=== PATIENT | female | born 1970 | race Caucasian/White ===

== ENCOUNTER → 2017-06-17 | Outpatient (REF) | payer BC | LOC: M LAB REF 11:56 | DX: S91.109A Unspecified open wound of unspecified toe(s) without damage to nail, initial encounter (principal); W18.30XA Fall on same level, unspecified, initial encounter; Y92.009 Unspecified place in unspecified non-institutional (private) residence as the place of occurrence of the external cause | CPT/HCPCS: 87077 ==

== ENCOUNTER 2017-06-26 14:37 | Emergency (ER) | payer BC ==
[2017-06-26] MEDS: IPRATROPIUM 0.5MG/ALBUTEROL 2.5MG INH SOL UD 3ML (DUONEB)(J7620) NEB (15:56)
[2017-06-26 16:16] LABS: HEMATOCRIT 46.3 % (36.0-47.0); HEMOGLOBIN 15.3 g/dl (12.0-15.5); MEAN CORPUSCULAR HEMOGLOBIN 32.3 pg (27.0-33.0); MEAN CORPUSCULAR VOLUME 97.7 fl (80.0-96.0); PLATELET COUNT, AUTOMATED 216 10^3/uL (150-450); RED BLOOD COUNT 4.74 10^6/uL (4.00-5.40); RED CELL DISTRIBUTION WIDTH 14.4 % (11.5-14.5); WHITE BLOOD COUNT 5.1 10^3/uL (4.0-10.0)
[2017-06-26 16:40] LABS: ESTIMATED AVERAGE GLUCOSE 105 MG/DL (60-110); HEMOGLOBIN A1c 5.3 %
[2017-06-26 16:54] LABS: ALBUMIN 3.7 GM/DL (3.2-5.2); ALBUMIN/GLOBULIN RATIO 0.86 (1.00-1.93); ALKALINE PHOSPHATASE 59 U/L (45-117); ALT/SGPT 18 U/L (12-78); ANION GAP 6 MEQ/L (8-16); AST/SGOT 12 U/L (7-37); BILIRUBIN,DIRECT 0.1 MG/DL (0.0-0.2); BILIRUBIN,TOTAL 0.6 MG/DL (0.2-1.0); BLOOD UREA NITROGEN 7 MG/DL (7-18); CARBON DIOXIDE LEVEL 29 MEQ/L (21-32); CHLORIDE LEVEL 104 MEQ/L (98-107); GLOMERULAR FILTRATION RATE > 60.0 (>58); GLUCOSE, FASTING 82 MG/DL (70-100); NT-PRO BNP 435 PG/ML (<125); SODIUM LEVEL 139 MEQ/L (136-145)
[2017-06-26] MEDS: PERCOCET 5MG/325MG TAB PO (17:46)
== END 2017-06-26 18:20 | disposition home or self-care (01) ==
LOC: M ED 14:37
DX: R60.0 Localized edema (principal); R06.2 Wheezing; S91.101A Unspecified open wound of right great toe without damage to nail, initial encounter; X58.XXXA Exposure to other specified factors, initial encounter; Y92.89 Other specified places as the place of occurrence of the external cause; F17.200 Nicotine dependence, unspecified, uncomplicated
CPT/HCPCS: 71046

== ENCOUNTER → 2017-06-26 | Outpatient (REF) | payer BC ==
[2017-06-26 18:50] LABS: ALBUMIN 3.7 GM/DL (3.2-5.2); ALBUMIN/GLOBULIN RATIO 0.86 (1.00-1.93); ALKALINE PHOSPHATASE 60 U/L (45-117); ALT/SGPT 18 U/L (12-78); ANION GAP 5 MEQ/L (8-16); AST/SGOT 17 U/L (7-37); BILIRUBIN,TOTAL 0.7 MG/DL (0.2-1.0); BLOOD UREA NITROGEN 7 MG/DL (7-18); C REACTIVE PROTEIN QUANTITATIV 1.16 MG/DL (0.00-0.30); CALCIUM LEVEL 9.2 MG/DL (8.5-10.1); CARBON DIOXIDE LEVEL 29 MEQ/L (21-32); CHLORIDE LEVEL 104 MEQ/L (98-107); CREATININE FOR GFR 0.53 MG/DL (0.55-1.30); GLOMERULAR FILTRATION RATE > 60.0 (>58); GLUCOSE, FASTING 78 MG/DL (70-100); SODIUM LEVEL 138 MEQ/L (136-145)
[2017-06-26 19:04] LABS: ERYTHROCYTE SEDIMENTATION RATE 7 mm/hr (0-20)
== END ==
LOC: M LAB REF 18:22
DX: S91.109D Unspecified open wound of unspecified toe(s) without damage to nail, subsequent encounter (principal); X58.XXXD Exposure to other specified factors, subsequent encounter; Y92.9 Unspecified place or not applicable; Y93.9 Activity, unspecified; Y99.9 Unspecified external cause status
CPT/HCPCS: 80053

== ENCOUNTER → 2017-06-28 | Outpatient (CLI) | payer BC ==
[~2017-06-28] MED LIST: CLOPIDOGREL 75 MG TAB As Ordered; HEPARIN 1,000 UNITS/ML 10ML VIAL (FOR RADIOLOGY& DIALYSIS ONLY) As Ordered; ISOVUE-300 61% 50ML VIAL (Q9967) As Ordered; ISOVUE-370 76% 100ML VIAL (Q9967) As Ordered; MIDAZOLAM INJ 2 MG/2 ML VIAL (J2250) As Ordered; NORCO, ANEXSIA 5/325MG TABLET (HYDROcodone/ACETAMINOPHEN) As Ordered; fentaNYL 100 MCG/2 ML INJECTION (J3010) As Ordered
== END | disposition home or self-care (01) ==
LOC: M IRPRO 06:44
DX: I70.213 Atherosclerosis of native arteries of extremities with intermittent claudication, bilateral legs (principal); I70.92 Chronic total occlusion of artery of the extremities; I70.261 Atherosclerosis of native arteries of extremities with gangrene, right leg; I70.0 Atherosclerosis of aorta; L97.519 Non-pressure chronic ulcer of other part of right foot with unspecified severity; F17.200 Nicotine dependence, unspecified, uncomplicated
CPT/HCPCS: 36140

== ENCOUNTER → 2017-07-02 | Outpatient (CLI) | payer BC ==
[~2017-07-02] MED LIST changes: -CLOPIDOGREL 75 MG TAB As Ordered; -ISOVUE-370 76% 100ML VIAL (Q9967) As Ordered; +NORCO, ANEXSIA 5/325MG TABLET (HYDROcodone/ACETAMINOPHEN) PO
[2017-07-02 07:36] LABS: ANION GAP 7 MEQ/L (8-16); BLOOD UREA NITROGEN 11 MG/DL (7-18); CALCIUM LEVEL 8.7 MG/DL (8.5-10.1); CARBON DIOXIDE LEVEL 29 MEQ/L (21-32); CHLORIDE LEVEL 105 MEQ/L (98-107); CREATININE FOR GFR 0.56 MG/DL (0.55-1.30); GLOMERULAR FILTRATION RATE > 60.0 (>58); GLUCOSE, FASTING 97 MG/DL (70-100); POTASSIUM SERUM 3.7 MEQ/L (3.5-5.1); SODIUM LEVEL 141 MEQ/L (136-145)
[2017-07-02 09:07] LABS: HEMATOCRIT 43.7 % (36.0-47.0); HEMOGLOBIN 14.5 g/dl (12.0-15.5); MEAN CORPUSCULAR HEMOGLOBIN 32.3 pg (27.0-33.0); MEAN CORPUSCULAR HGB CONC 33.2 g/dl (32.0-36.5); MEAN CORPUSCULAR VOLUME 97.3 fl (80.0-96.0); PLATELET COUNT, AUTOMATED 211 10^3/uL (150-450); RED BLOOD COUNT 4.49 10^6/uL (4.00-5.40); WHITE BLOOD COUNT 7.3 10^3/uL (4.0-10.0)
== END | disposition home or self-care (01) ==
LOC: M IRPRO 06:42
DX: I70.213 Atherosclerosis of native arteries of extremities with intermittent claudication, bilateral legs (principal); I70.92 Chronic total occlusion of artery of the extremities; I70.261 Atherosclerosis of native arteries of extremities with gangrene, right leg; L97.519 Non-pressure chronic ulcer of other part of right foot with unspecified severity; I70.0 Atherosclerosis of aorta; F17.200 Nicotine dependence, unspecified, uncomplicated; L03.115 Cellulitis of right lower limb
CPT/HCPCS: 36140

== ENCOUNTER 2017-07-03 14:50 | Inpatient (IN) | payer BC ==
[~2017-07-03 14:50] MED LIST changes: +BISACODYL 10 MG SUPP PR; -HEPARIN 1,000 UNITS/ML 10ML VIAL (FOR RADIOLOGY& DIALYSIS ONLY) As Ordered; +HEPARIN DRIP 25,000 UNITS in APPROPRIATE DILUENT 1 EA IV; -ISOVUE-300 61% 50ML VIAL (Q9967) As Ordered; -MIDAZOLAM INJ 2 MG/2 ML VIAL (J2250) As Ordered; +MOM 30ML SUSPENSION UDC PO; +MORPHINE 4 MG/ML 1ML VIAL/SYRINGE (J2270) IV; -NORCO, ANEXSIA 5/325MG TABLET (HYDROcodone/ACETAMINOPHEN) As Ordered; -NORCO, ANEXSIA 5/325MG TABLET (HYDROcodone/ACETAMINOPHEN) PO; +ONDANSETRON 4MG/2ML VIAL (J2405) IV; -fentaNYL 100 MCG/2 ML INJECTION (J3010) As Ordered
[2017-07-03] MEDS: D5W/0.45% SODIUM CHLORIDE 1,000 ML IV ×2 (15:36→18:55)
[2017-07-03] MEDS: PANTOPRAZOLE 40MG TAB (PROTONIX) PO (15:40)
[2017-07-03 16:07] LABS: BASO % 0.5 % (0.0-1.0); EOS # 0.1 10^3/uL (0.0-0.50); EOS % 2.1 % (0.0-3.0); HEMATOCRIT 43.6 % (36.0-47.0); HEMOGLOBIN 14.1 g/dl (12.0-15.5); IMMATURE GRANULOCYTE % 0.3 % (0-3.0); LYMPH # 1.2 10^3/uL (1.5-4.5); LYMPH % 19.9 % (24.0-44.0); MEAN CORPUSCULAR HGB CONC 32.3 g/dl (32.0-36.5); MEAN CORPUSCULAR VOLUME 99.1 fl (80.0-96.0); MONO # 0.5 10^3/uL (0.0-0.8); MONO % 7.7 % (0.0-5.0); NEUTROPHILS # 4.3 10^3/uL (1.8-7.7); NEUTROPHILS % 69.5 % (36.0-66.0); PLATELET COUNT, AUTOMATED 205 10^3/uL (150-450); RED CELL DISTRIBUTION WIDTH 14.1 % (11.5-14.5); WHITE BLOOD COUNT 6.1 10^3/uL (4.0-10.0)
[2017-07-03 16:25] LABS: INR 0.95; PROTHROMBIN TIME 12.8 SECONDS (12.4-14.5)
[2017-07-03 16:26] LABS: PARTIAL THROMBOPLASTIN TIME 30.2 SECONDS (26.8-37.9)
[2017-07-03 16:32] LABS: ALBUMIN 3.6 GM/DL (3.2-5.2); ALBUMIN/GLOBULIN RATIO 0.97 (1.00-1.93); ALKALINE PHOSPHATASE 57 U/L (45-117); ALT/SGPT 22 U/L (12-78); ANION GAP 6 MEQ/L (8-16); AST/SGOT 20 U/L (7-37); BILIRUBIN,DIRECT 0.1 MG/DL (0.0-0.2); BILIRUBIN,TOTAL 0.5 MG/DL (0.2-1.0); BLOOD UREA NITROGEN 10 MG/DL (7-18); CALCIUM LEVEL 8.6 MG/DL (8.5-10.1); CARBON DIOXIDE LEVEL 29 MEQ/L (21-32); CHLORIDE LEVEL 105 MEQ/L (98-107); CREATININE FOR GFR 0.56 MG/DL (0.55-1.30); GLOMERULAR FILTRATION RATE > 60.0 (>58); GLUCOSE, FASTING 95 MG/DL (70-100); SODIUM LEVEL 140 MEQ/L (136-145); TOTAL PROTEIN 7.3 GM/DL (6.4-8.2)
[2017-07-03] MEDS: HEPARIN SOD (PORCINE) 5000 UNITS/ML VIAL IV (16:48)
[2017-07-03] MEDS: PIPERACILLIN/TAZOBACTAM SOD 3.375 GM in D5W MINI-BAG PLUS 50 ML IV ×2 (16:48→23:16)
[2017-07-03] MEDS: HEPARIN DRIP 25,000 UNITS in APPROPRIATE DILUENT 1 EA IV (18:23)
[2017-07-03] MEDS: NORCO, ANEXSIA 5/325MG TABLET (HYDROcodone/ACETAMINOPHEN) PO (18:31)
[2017-07-03] MEDS: SENOKOT S TAB PO (20:19)
[2017-07-03] MEDS: DOCUSATE SODIUM 100 MG CAP PO (20:19)
[2017-07-03] MEDS: MORPHINE 4 MG/ML 1ML VIAL/SYRINGE (J2270) IV (23:17)
[2017-07-04] MEDS: D5W/0.45% SODIUM CHLORIDE 1,000 ML IV ×3 (00:46→18:33)
[2017-07-04 01:02] LABS: PARTIAL THROMBOPLASTIN TIME 52.9 SECONDS (26.8-37.9)
[2017-07-04] MEDS: HEPARIN SOD (PORCINE) 5000 UNITS/ML VIAL IV ×2 (01:41→19:59)
[2017-07-04] MEDS: MORPHINE 4 MG/ML 1ML VIAL/SYRINGE (J2270) IV ×6 (01:42→23:15)
[2017-07-04] MEDS: PIPERACILLIN/TAZOBACTAM SOD 3.375 GM in D5W MINI-BAG PLUS 50 ML IV ×4 (04:38→22:27)
[2017-07-04 06:43] LABS: PARTIAL THROMBOPLASTIN TIME 89.2 SECONDS (26.8-37.9)
[2017-07-04] MEDS: NORCO, ANEXSIA 5/325MG TABLET (HYDROcodone/ACETAMINOPHEN) PO ×3 (07:18→20:09)
[2017-07-04] MEDS: HEPARIN DRIP 25,000 UNITS in APPROPRIATE DILUENT 1 EA IV ×3 (08:06→22:30)
[2017-07-04] MEDS: PANTOPRAZOLE 40MG TAB (PROTONIX) PO (08:07)
[2017-07-04] MEDS: DOCUSATE SODIUM 100 MG CAP PO ×2 (08:07→20:00)
[2017-07-04] MEDS: SENOKOT S TAB PO ×2 (08:07→20:00)
[2017-07-04] MEDS: INFLUENZA QUADRIVALENT PF VACCINE 0.5ML SYRINGE (90686) IM (08:09)
[2017-07-04] MEDS: CLOPIDOGREL 75 MG TAB PO (11:26)
[2017-07-04] MEDS: ASPIRIN 81 MG ENTERIC TAB PO (11:26)
[2017-07-04] MEDS: OXAZEPAM 15 MG CAP PO (11:26)
[2017-07-04 12:40] LABS: PARTIAL THROMBOPLASTIN TIME 64.8 SECONDS (26.8-37.9)
[2017-07-04 13:56] LABS: ERYTHROCYTE SEDIMENTATION RATE 18 mm/hr (0-20)
[2017-07-04 14:15] LABS: C REACTIVE PROTEIN QUANTITATIV 1.43 MG/DL (0.00-0.30)
[2017-07-04 15:36] LABS: FREE T4 1.21 NG/DL (0.76-1.46)
[2017-07-04] MEDS ORDERED: NICOTINE 14 MG/24 HR TRANSDERMAL TD (15:45)
[2017-07-04] MEDS: THIAMINE 100 MG TAB PO (15:58)
[2017-07-04] MEDS: FOLIC ACID 1 MG TAB PO (15:58)
[2017-07-04] MEDS: MULTIVITAMINS/MINERALS THERAP 1 TAB PO (15:58)
[2017-07-04 18:51] LABS: PARTIAL THROMBOPLASTIN TIME 60.9 SECONDS (26.8-37.9)
[2017-07-04] MEDS: NS 500 ML IV (21:56)
[2017-07-04] MEDS: OXAZEPAM 10 MG CAP PO (22:27)
[2017-07-05 02:13] LABS: PARTIAL THROMBOPLASTIN TIME 112.1 SECONDS (26.8-37.9)
[2017-07-05] MEDS: NORCO, ANEXSIA 5/325MG TABLET (HYDROcodone/ACETAMINOPHEN) PO ×4 (03:53→23:39)
[2017-07-05] MEDS: D5W/0.45% SODIUM CHLORIDE 1,000 ML IV ×3 (03:57→17:16)
[2017-07-05] MEDS: PIPERACILLIN/TAZOBACTAM SOD 3.375 GM in D5W MINI-BAG PLUS 50 ML IV ×4 (04:08→23:28)
[2017-07-05] MEDS: ALBUTEROL 90 MCG/ACT 8GM HFA INHALER INH ×2 (04:12→14:04)
[2017-07-05] MEDS: OXAZEPAM 10 MG CAP PO ×3 (05:49→21:20)
[2017-07-05] MEDS: NS 500 ML IV (06:24)
[2017-07-05 06:49] LABS: HEMATOCRIT 39.9 % (36.0-47.0); HEMOGLOBIN 12.9 g/dl (12.0-15.5); MEAN CORPUSCULAR HEMOGLOBIN 32.3 pg (27.0-33.0); MEAN CORPUSCULAR HGB CONC 32.3 g/dl (32.0-36.5); MEAN CORPUSCULAR VOLUME 99.8 fl (80.0-96.0); PLATELET COUNT, AUTOMATED 194 10^3/uL (150-450); WHITE BLOOD COUNT 4.7 10^3/uL (4.0-10.0)
[2017-07-05 07:01] LABS: PARTIAL THROMBOPLASTIN TIME 70.8 SECONDS (26.8-37.9)
[2017-07-05 07:11] LABS: ANION GAP 7 MEQ/L (8-16); BLOOD UREA NITROGEN 7 MG/DL (7-18); CALCIUM LEVEL 8.3 MG/DL (8.5-10.1); CARBON DIOXIDE LEVEL 27 MEQ/L (21-32); CHLORIDE LEVEL 105 MEQ/L (98-107); CREATININE FOR GFR 0.64 MG/DL (0.55-1.30); GLOMERULAR FILTRATION RATE > 60.0 (>58); GLUCOSE, FASTING 101 MG/DL (70-100); MAGNESIUM LEVEL 2.2 MG/DL (1.8-2.4); POTASSIUM SERUM 3.9 MEQ/L (3.5-5.1); SODIUM LEVEL 139 MEQ/L (136-145)
[2017-07-05] MEDS: DOCUSATE SODIUM 100 MG CAP PO ×2 (08:17→20:13)
[2017-07-05] MEDS: CLOPIDOGREL 75 MG TAB PO (08:17)
[2017-07-05] MEDS: MULTIVITAMINS/MINERALS THERAP 1 TAB PO (08:17)
[2017-07-05] MEDS: FOLIC ACID 1 MG TAB PO (08:17)
[2017-07-05] MEDS: SENOKOT S TAB PO ×2 (08:17→20:13)
[2017-07-05] MEDS: ASPIRIN 81 MG ENTERIC TAB PO (08:18)
[2017-07-05] MEDS: THIAMINE 100 MG TAB PO (08:18)
[2017-07-05] MEDS: MORPHINE 4 MG/ML 1ML VIAL/SYRINGE (J2270) IV ×3 (08:18→20:14)
[2017-07-05] MEDS: PANTOPRAZOLE 40MG TAB (PROTONIX) PO (08:18)
[2017-07-05 12:34] LABS: PARTIAL THROMBOPLASTIN TIME 64.3 SECONDS (26.8-37.9)
[2017-07-05] MEDS: HEPARIN DRIP 25,000 UNITS in APPROPRIATE DILUENT 1 EA IV (13:18)
[2017-07-05] MEDS: PERCOCET 5MG/325MG TAB PO (15:29)
[2017-07-05 18:47] LABS: PARTIAL THROMBOPLASTIN TIME 57.5 SECONDS (26.8-37.9)
[2017-07-06] MEDS: D5W/0.45% SODIUM CHLORIDE 1,000 ML IV (02:19)
[2017-07-06] MEDS: HEPARIN SOD (PORCINE) 5000 UNITS/ML VIAL IV (03:12)
[2017-07-06 05:27] LABS: HEMATOCRIT 37.5 % (36.0-47.0); HEMOGLOBIN 12.4 g/dl (12.0-15.5); MEAN CORPUSCULAR HEMOGLOBIN 32.4 pg (27.0-33.0); MEAN CORPUSCULAR HGB CONC 33.1 g/dl (32.0-36.5); MEAN CORPUSCULAR VOLUME 97.9 fl (80.0-96.0); PLATELET COUNT, AUTOMATED 171 10^3/uL (150-450); RED BLOOD COUNT 3.83 10^6/uL (4.00-5.40); RED CELL DISTRIBUTION WIDTH 13.8 % (11.5-14.5); WHITE BLOOD COUNT 7.5 10^3/uL (4.0-10.0)
[2017-07-06 05:38] LABS: ANION GAP 6 MEQ/L (8-16); BLOOD UREA NITROGEN 4 MG/DL (7-18); CALCIUM LEVEL 8.3 MG/DL (8.5-10.1); CARBON DIOXIDE LEVEL 26 MEQ/L (21-32); CHLORIDE LEVEL 105 MEQ/L (98-107); GLOMERULAR FILTRATION RATE > 60.0 (>58); GLUCOSE, FASTING 115 MG/DL (70-100); MAGNESIUM LEVEL 2.1 MG/DL (1.8-2.4); SODIUM LEVEL 137 MEQ/L (136-145)
[2017-07-06] MEDS: PIPERACILLIN/TAZOBACTAM SOD 3.375 GM in D5W MINI-BAG PLUS 50 ML IV ×4 (05:38→22:47)
[2017-07-06] MEDS: OXAZEPAM 10 MG CAP PO ×3 (05:38→21:08)
[2017-07-06] MEDS: HEPARIN DRIP 25,000 UNITS in APPROPRIATE DILUENT 1 EA IV ×2 (05:41→17:37)
[2017-07-06 07:53] LABS: CHOLESTEROL LEVEL 138 MG/DL (<200); CHOLESTEROL RISK RATIO 2.379 (<5); HDL CHOLESTEROL 58 MG/DL (>40); LDL CHOLESTEROL 65.6 MG/DL (<100); NON-HDL-C 80 MG/DL; TRIGLYCERIDES LEVEL 72 MG/DL (<150)
[2017-07-06] MEDS: FOLIC ACID 1 MG TAB PO (09:42)
[2017-07-06] MEDS: ASPIRIN 81 MG ENTERIC TAB PO (09:43)
[2017-07-06] MEDS: NORCO, ANEXSIA 5/325MG TABLET (HYDROcodone/ACETAMINOPHEN) PO ×3 (09:43→20:33)
[2017-07-06] MEDS: PANTOPRAZOLE 40MG TAB (PROTONIX) PO (09:44)
[2017-07-06] MEDS: MULTIVITAMINS/MINERALS THERAP 1 TAB PO (09:44)
[2017-07-06] MEDS: CLOPIDOGREL 75 MG TAB PO (09:44)
[2017-07-06] MEDS: SENOKOT S TAB PO ×2 (09:44→20:33)
[2017-07-06] MEDS: DOCUSATE SODIUM 100 MG CAP PO ×2 (09:44→20:33)
[2017-07-06] MEDS: THIAMINE 100 MG TAB PO (09:51)
[2017-07-06] MEDS: MORPHINE 4 MG/ML 1ML VIAL/SYRINGE (J2270) IV ×2 (11:10→22:47)
[2017-07-06 17:05] LABS: PARTIAL THROMBOPLASTIN TIME 85.3 SECONDS (26.8-37.9)
[2017-07-06 22:46] LABS: PARTIAL THROMBOPLASTIN TIME 80.6 SECONDS (26.8-37.9)
[2017-07-06] MEDS: NS 500 ML IV (23:56)
[2017-07-07] MEDS: PIPERACILLIN/TAZOBACTAM SOD 3.375 GM in D5W MINI-BAG PLUS 50 ML IV ×4 (05:15→22:45)
[2017-07-07] MEDS: ACETAMINOPHEN TAB 650MG DOSE (2X325MG) PO (05:15)
[2017-07-07] MEDS: MORPHINE 4 MG/ML 1ML VIAL/SYRINGE (J2270) IV ×3 (05:15→20:41)
[2017-07-07] MEDS: OXAZEPAM 10 MG CAP PO ×2 (05:15→16:51)
[2017-07-07 05:40] LABS: HEMOGLOBIN 11.9 g/dl (12.0-15.5); MEAN CORPUSCULAR HEMOGLOBIN 32.2 pg (27.0-33.0); MEAN CORPUSCULAR HGB CONC 33.1 g/dl (32.0-36.5); MEAN CORPUSCULAR VOLUME 97.6 fl (80.0-96.0); PLATELET COUNT, AUTOMATED 175 10^3/uL (150-450); RED BLOOD COUNT 3.69 10^6/uL (4.00-5.40); WHITE BLOOD COUNT 10.9 10^3/uL (4.0-10.0)
[2017-07-07 05:54] LABS: PARTIAL THROMBOPLASTIN TIME 80.1 SECONDS (26.8-37.9)
[2017-07-07 06:04] LABS: ANION GAP 6 MEQ/L (8-16); BLOOD UREA NITROGEN 4 MG/DL (7-18); CALCIUM LEVEL 8.3 MG/DL (8.5-10.1); CARBON DIOXIDE LEVEL 27 MEQ/L (21-32); CHLORIDE LEVEL 102 MEQ/L (98-107); CREATININE FOR GFR 0.49 MG/DL (0.55-1.30); GLOMERULAR FILTRATION RATE > 60.0 (>58); GLUCOSE, FASTING 104 MG/DL (70-100); MAGNESIUM LEVEL 1.9 MG/DL (1.8-2.4); POTASSIUM SERUM 3.5 MEQ/L (3.5-5.1); SODIUM LEVEL 135 MEQ/L (136-145)
[2017-07-07] MEDS: HEPARIN DRIP 25,000 UNITS in APPROPRIATE DILUENT 1 EA IV (08:34)
[2017-07-07] MEDS: PANTOPRAZOLE 40MG TAB (PROTONIX) PO (09:39)
[2017-07-07] MEDS: FOLIC ACID 1 MG TAB PO (09:39)
[2017-07-07] MEDS: ASPIRIN 81 MG ENTERIC TAB PO (09:39)
[2017-07-07] MEDS: THIAMINE 100 MG TAB PO (09:39)
[2017-07-07] MEDS: CLOPIDOGREL 75 MG TAB PO (09:39)
[2017-07-07] MEDS: NORCO, ANEXSIA 5/325MG TABLET (HYDROcodone/ACETAMINOPHEN) PO ×4 (09:40→22:45)
[2017-07-07] MEDS: MULTIVITAMINS/MINERALS THERAP 1 TAB PO (09:40)
[2017-07-07] MEDS: DOCUSATE SODIUM 100 MG CAP PO ×2 (09:41→20:35)
[2017-07-07] MEDS: SENOKOT S TAB PO ×2 (09:41→20:35)
[2017-07-08] MEDS: HEPARIN DRIP 25,000 UNITS in APPROPRIATE DILUENT 1 EA IV ×2 (00:09→15:02)
[2017-07-08] MEDS: NORCO, ANEXSIA 5/325MG TABLET (HYDROcodone/ACETAMINOPHEN) PO ×5 (03:48→23:58)
[2017-07-08 05:23] LABS: HEMATOCRIT 35.8 % (36.0-47.0); HEMOGLOBIN 11.8 g/dl (12.0-15.5); MEAN CORPUSCULAR HEMOGLOBIN 32.1 pg (27.0-33.0); MEAN CORPUSCULAR VOLUME 97.3 fl (80.0-96.0); PLATELET COUNT, AUTOMATED 184 10^3/uL (150-450); RED BLOOD COUNT 3.68 10^6/uL (4.00-5.40); WHITE BLOOD COUNT 10.1 10^3/uL (4.0-10.0)
[2017-07-08] MEDS: PIPERACILLIN/TAZOBACTAM SOD 3.375 GM in D5W MINI-BAG PLUS 50 ML IV ×4 (05:32→22:24)
[2017-07-08 05:33] LABS: PARTIAL THROMBOPLASTIN TIME 65.3 SECONDS (26.8-37.9)
[2017-07-08] MEDS: OXAZEPAM 10 MG CAP PO ×3 (05:33→22:49)
[2017-07-08 05:39] LABS: ANION GAP 8 MEQ/L (8-16); BLOOD UREA NITROGEN 3 MG/DL (7-18); CALCIUM LEVEL 8.3 MG/DL (8.5-10.1); CARBON DIOXIDE LEVEL 26 MEQ/L (21-32); CHLORIDE LEVEL 103 MEQ/L (98-107); CREATININE FOR GFR 0.46 MG/DL (0.55-1.30); GLOMERULAR FILTRATION RATE > 60.0 (>58); GLUCOSE, FASTING 95 MG/DL (70-100); MAGNESIUM LEVEL 2.1 MG/DL (1.8-2.4); POTASSIUM SERUM 3.1 MEQ/L (3.5-5.1); SODIUM LEVEL 137 MEQ/L (136-145)
[2017-07-08] MEDS: MORPHINE 4 MG/ML 1ML VIAL/SYRINGE (J2270) IV ×4 (07:38→22:25)
[2017-07-08] MEDS: POTASSIUM CHLORIDE 10 MEQ SR TABLET PO ×2 (07:41→16:24)
[2017-07-08] MEDS: KCL 10MEQ/100ML SWI (KRUN) 10 MEQ in APPROPRIATE DILUENT 1 EA IV ×2 (07:43→09:00)
[2017-07-08] MEDS: ASPIRIN 81 MG ENTERIC TAB PO (09:59)
[2017-07-08] MEDS: DOCUSATE SODIUM 100 MG CAP PO ×2 (09:59→20:00)
[2017-07-08] MEDS: MULTIVITAMINS/MINERALS THERAP 1 TAB PO (09:59)
[2017-07-08] MEDS: CLOPIDOGREL 75 MG TAB PO (10:00)
[2017-07-08] MEDS: FOLIC ACID 1 MG TAB PO (10:00)
[2017-07-08] MEDS: PANTOPRAZOLE 40MG TAB (PROTONIX) PO (10:00)
[2017-07-08] MEDS: THIAMINE 100 MG TAB PO (10:00)
[2017-07-08] MEDS: SENOKOT S TAB PO ×2 (10:00→20:00)
[2017-07-08] MEDS: SLF 3 ML SYR IV ×3 (11:32→22:24)
[2017-07-08 14:12] LABS: ANION GAP 9 MEQ/L (8-16); BLOOD UREA NITROGEN 3 MG/DL (7-18); CALCIUM LEVEL 8.5 MG/DL (8.5-10.1); CARBON DIOXIDE LEVEL 26 MEQ/L (21-32); CHLORIDE LEVEL 103 MEQ/L (98-107); CREATININE FOR GFR 0.63 MG/DL (0.55-1.30); GLOMERULAR FILTRATION RATE > 60.0 (>58); GLUCOSE, FASTING 130 MG/DL (70-100); POTASSIUM SERUM 3.2 MEQ/L (3.5-5.1); SODIUM LEVEL 138 MEQ/L (136-145)
[2017-07-08] MEDS ORDERED: POTASSIUM CHLORIDE INJ 20 MEQ in NS 1,000 ML IV (16:00)
[2017-07-08] MEDS: KCL 20MEQ in NS 1000ML 1,000 ML IV (16:54)
[2017-07-09] MEDS: MORPHINE 4 MG/ML 1ML VIAL/SYRINGE (J2270) IV ×4 (02:10→13:55)
[2017-07-09] MEDS: NORCO, ANEXSIA 5/325MG TABLET (HYDROcodone/ACETAMINOPHEN) PO ×4 (04:00→16:27)
[2017-07-09] MEDS: HEPARIN DRIP 25,000 UNITS in APPROPRIATE DILUENT 1 EA IV ×4 (04:34→16:25)
[2017-07-09] MEDS: OXAZEPAM 10 MG CAP PO ×2 (05:18→17:00)
[2017-07-09] MEDS: PIPERACILLIN/TAZOBACTAM SOD 3.375 GM in D5W MINI-BAG PLUS 50 ML IV ×3 (05:19→16:25)
[2017-07-09] MEDS: SLF 3 ML SYR IV ×2 (05:19→12:16)
[2017-07-09 05:22] LABS: HEMATOCRIT 33.3 % (36.0-47.0); HEMOGLOBIN 10.9 g/dl (12.0-15.5); MEAN CORPUSCULAR HEMOGLOBIN 32.2 pg (27.0-33.0); MEAN CORPUSCULAR HGB CONC 32.7 g/dl (32.0-36.5); MEAN CORPUSCULAR VOLUME 98.2 fl (80.0-96.0); PLATELET COUNT, AUTOMATED 208 10^3/uL (150-450); RED BLOOD COUNT 3.39 10^6/uL (4.00-5.40)
[2017-07-09 05:37] LABS: ANION GAP 4 MEQ/L (8-16); BLOOD UREA NITROGEN 5 MG/DL (7-18); CALCIUM LEVEL 8.5 MG/DL (8.5-10.1); CARBON DIOXIDE LEVEL 28 MEQ/L (21-32); CHLORIDE LEVEL 106 MEQ/L (98-107); CREATININE FOR GFR 0.45 MG/DL (0.55-1.30); GLOMERULAR FILTRATION RATE > 60.0 (>58); GLUCOSE, FASTING 104 MG/DL (70-100); MAGNESIUM LEVEL 2.1 MG/DL (1.8-2.4); SODIUM LEVEL 138 MEQ/L (136-145)
[2017-07-09 05:40] LABS: PARTIAL THROMBOPLASTIN TIME 54.3 SECONDS (26.8-37.9)
[2017-07-09] MEDS: THIAMINE 100 MG TAB PO (08:10)
[2017-07-09] MEDS: MULTIVITAMINS/MINERALS THERAP 1 TAB PO (08:10)
[2017-07-09] MEDS: SENOKOT S TAB PO ×2 (08:10→21:00)
[2017-07-09] MEDS: PANTOPRAZOLE 40MG TAB (PROTONIX) PO (08:10)
[2017-07-09] MEDS: ASPIRIN 81 MG ENTERIC TAB PO (08:10)
[2017-07-09] MEDS: FOLIC ACID 1 MG TAB PO (08:10)
[2017-07-09] MEDS: CLOPIDOGREL 75 MG TAB PO (08:10)
[2017-07-09] MEDS: DOCUSATE SODIUM 100 MG CAP PO ×2 (08:10→21:00)
[2017-07-09 12:15] LABS: PARTIAL THROMBOPLASTIN TIME 57.8 SECONDS (26.8-37.9)
[2017-07-09] MEDS: HEPARIN SOD (PORCINE) 5000 UNITS/ML VIAL IV (13:50)
[2017-07-09] MEDS ORDERED: PROPOFOL 200 MG/20 ML VIAL As Ordered ×2 (17:13→18:23)
[2017-07-09] MEDS ORDERED: LIDOCAINE 2% INJ 100 MG/5 ML SDV (FOR ANES.) As Ordered (17:13)
[2017-07-09] MEDS ORDERED: MIDAZOLAM INJ 2 MG/2 ML VIAL (J2250) As Ordered (17:13)
[2017-07-09] MEDS ORDERED: fentaNYL 100 MCG/2 ML INJECTION (J3010) As Ordered ×3 (17:13→23:27)
[2017-07-09] MEDS ORDERED: ROCURONIUM BROMIDE 50 MG/5 ML VIAL As Ordered ×3 (17:13→21:41)
[2017-07-09] MEDS ORDERED: HYDROmorphone HCL 2 MG/ML 1ML VIAL (J1170) As Ordered (18:03)
[2017-07-09] MEDS ORDERED: PHENYLEPHRINE INJ 10MG/ML VIAL (J2370) As Ordered ×2 (18:06→22:28)
[2017-07-09] MEDS ORDERED: CALCIUM CHLORIDE 10% 1 GM/10 ML SYR As Ordered (18:10)
[2017-07-09] MEDS ORDERED: LABETALOL HCL 100 MG/20 ML VIAL As Ordered (19:02)
[2017-07-09] MEDS ORDERED: KETAMINE HCL 200 MG/20 ML VIAL As Ordered (19:03)
[2017-07-09] MEDS ORDERED: KETAMINE INJ 500 MG/5 ML VIAL As Ordered (19:04)
[2017-07-09] MEDS ORDERED: HEPARIN SOD (PORCINE) 5000 UNITS/ML VIAL As Ordered ×2 (19:08→20:09)
[2017-07-09 19:41] LABS: iSTAT CA++ 5.4 MG/DL (4.5-5.3)
[2017-07-09] MEDS: HEPARIN SOD (PORCINE) 5000 UNITS/ML VIAL As Ordered (19:51)
[2017-07-09] MEDS: BUPIVACAINE HCL 0.5% 10 ML VIAL As Ordered (19:52)
[2017-07-09] MEDS: LIDOCAINE 1% MDV 20ML VIAL As Ordered (19:52)
[2017-07-09 20:15] LABS: iSTAT CA++ 4.9 MG/DL (4.5-5.3)
[2017-07-09] MEDS ORDERED: DESFLURANE 240 ML INHALANT As Ordered (20:38)
[2017-07-09 21:41] LABS: iSTAT CA++ 4.9 MG/DL (4.5-5.3)
[2017-07-09 22:04] LABS: IMMEDIATE SPIN CROSSMATCH 1 6
[2017-07-09] MEDS ORDERED: PHENYLephrine HCL 500 MCG/5 ML (100MCG/ML) SYRINGE (J2370) As Ordered ×3 (22:10→22:11)
[2017-07-09 22:17] LABS: iSTAT CA++ 4.8 MG/DL (4.5-5.3)
[2017-07-09] MEDS: THROMBIN SOLN 20,000 UNITS KIT As Ordered (22:39)
[2017-07-09] MEDS ORDERED: PROPOFOL 1,000 MG/100 ML VIAL As Ordered (23:04)
[2017-07-09] MEDS ORDERED: PROPOFOL 1,000 MG/100 ML VIAL IV (23:30)
[2017-07-09] MEDS: LR 1,000 ML IV (23:30)
[2017-07-09] MEDS ORDERED: PROPOFOL 1,000 MG in APPROPRIATE DILUENT 1 EA IV (23:30)
[2017-07-09] MEDS ORDERED: IPRATROPIUM 0.5MG/ALBUTEROL 2.5MG INH SOL UD 3ML (DUONEB)(J7620) NEB (23:30)
[2017-07-09] MEDS ORDERED: MORPHINE 10 MG/ML 1ML VIAL (J2270) IV (23:30)
[2017-07-09] MEDS ORDERED: ONDANSETRON 4MG/2ML VIAL (J2405) IV (23:30)
[2017-07-09 23:33] LABS: ABG BASE EXCESS 0.2 (-2.0-2.0); ABG DEVICE MECHAN. VENT; ABG FIO2 50; ABG HCO3 27.8 MEQ/L (22.0-26.0); ABG O2 SATURATION 96.3 % (95.0-99.0); ABG PARTIAL PRESSURE CO2 57.7 mmHg (35.0-45.0); ABG PARTIAL PRESSURE O2 84.7 mmHg (75.0-100.0); ABG PEEP 5; ABG SITE ART LINE; ABG STANDARD HCO3 24.6 MEQ/L (22.0-26.0); ABG TIDAL VOLUME 370 cc; ABG TOTAL CO2 29.5 MEQ/L (22.0-29.0)
[2017-07-09] MEDS: fentaNYL 100 MCG/2 ML INJECTION (J3010) IV ×4 (23:33→23:50)
[2017-07-10] MEDS: IPRATROPIUM 0.5MG/ALBUTEROL 2.5MG INH SOL UD 3ML (DUONEB)(J7620) NEB ×6 (00:10→20:03)
[2017-07-10] MEDS: SLF 3 ML SYR IV ×4 (01:17→21:24)
[2017-07-10] MEDS: PIPERACILLIN/TAZOBACTAM SOD 3.375 GM in D5W MINI-BAG PLUS 50 ML IV ×5 (01:17→22:49)
[2017-07-10] MEDS: PROPOFOL 1,000 MG in APPROPRIATE DILUENT 1 EA IV ×2 (03:56→08:05)
[2017-07-10] MEDS: OXAZEPAM 10 MG CAP PO ×2 (04:54→17:15)
[2017-07-10 05:45] LABS: HEMATOCRIT 35.5 % (36.0-47.0); MEAN CORPUSCULAR HEMOGLOBIN 31.1 pg (27.0-33.0); MEAN CORPUSCULAR HGB CONC 33.8 g/dl (32.0-36.5); PLATELET COUNT, AUTOMATED 235 10^3/uL (150-450); RED BLOOD COUNT 3.86 10^6/uL (4.00-5.40); RED CELL DISTRIBUTION WIDTH 16.1 % (11.5-14.5); WHITE BLOOD COUNT 9.6 10^3/uL (4.0-10.0)
[2017-07-10 06:06] LABS: ABG BASE EXCESS -1.1 (-2.0-2.0); ABG HCO3 23.5 MEQ/L (22.0-26.0); ABG O2 SATURATION 99.1 % (95.0-99.0); ABG PARTIAL PRESSURE CO2 38.8 mmHg (35.0-45.0); ABG PARTIAL PRESSURE O2 136.9 mmHg (75.0-100.0); ABG STANDARD HCO3 23.6 MEQ/L (22.0-26.0); ABG TOTAL CO2 24.7 MEQ/L (22.0-29.0)
[2017-07-10 06:07] LABS: ANION GAP 7 MEQ/L (8-16); BLOOD UREA NITROGEN 5 MG/DL (7-18); CALCIUM LEVEL 7.6 MG/DL (8.5-10.1); CARBON DIOXIDE LEVEL 24 MEQ/L (21-32); CHLORIDE LEVEL 109 MEQ/L (98-107); CREATININE FOR GFR 0.38 MG/DL (0.55-1.30); GLOMERULAR FILTRATION RATE > 60.0 (>58); GLUCOSE, FASTING 157 MG/DL (70-100); MAGNESIUM LEVEL 1.7 MG/DL (1.8-2.4); POTASSIUM SERUM 4.5 MEQ/L (3.5-5.1); SODIUM LEVEL 140 MEQ/L (136-145)
[2017-07-10] MEDS ORDERED: NALOXONE INJ 0.4 MG/1 ML VIAL (J2310) IV (09:00)
[2017-07-10] MEDS ORDERED: EPIDURAL/PCA KEYS XX (09:00)
[2017-07-10] MEDS ORDERED: diphenhydrAMINE INJ 50MG/ML VIAL (J1200) IV (09:00)
[2017-07-10] MEDS ORDERED: NALBUPHINE HCL 10 MG/ML AMP (J2300) IV (09:00)
[2017-07-10] MEDS: MAG SULF 1GM/100ML (MAG RUN) 1 GM in APPROPRIATE DILUENT 1 EA IV ×2 (09:11→10:42)
[2017-07-10] MEDS: MORPHINE 1MG/ML IN 0.9% NACL 100ML IV BAG IV (10:00)
[2017-07-10] MEDS: NS 1,000 ML IV (10:07)
[2017-07-10] MEDS: SENOKOT S TAB PO ×2 (10:41→20:43)
[2017-07-10] MEDS: CLOPIDOGREL 75 MG TAB PO (10:41)
[2017-07-10] MEDS: THIAMINE 100 MG TAB PO (10:41)
[2017-07-10] MEDS: FOLIC ACID 1 MG TAB PO (10:41)
[2017-07-10] MEDS: DOCUSATE SODIUM 100 MG CAP PO ×2 (10:41→20:43)
[2017-07-10] MEDS: PANTOPRAZOLE 40MG TAB (PROTONIX) PO (10:41)
[2017-07-10] MEDS: MULTIVITAMINS/MINERALS THERAP 1 TAB PO (10:42)
[2017-07-10] MEDS: ASPIRIN 81 MG ENTERIC TAB PO (10:42)
[2017-07-10] MEDS: ONDANSETRON 4MG/2ML VIAL (J2405) IV ×2 (15:02→22:20)
[2017-07-10 17:48] LABS: HEMATOCRIT 35.1 % (36.0-47.0); MEAN CORPUSCULAR HEMOGLOBIN 31.7 pg (27.0-33.0); MEAN CORPUSCULAR HGB CONC 34.2 g/dl (32.0-36.5); MEAN CORPUSCULAR VOLUME 92.9 fl (80.0-96.0); PLATELET COUNT, AUTOMATED 259 10^3/uL (150-450); RED BLOOD COUNT 3.78 10^6/uL (4.00-5.40); RED CELL DISTRIBUTION WIDTH 16.2 % (11.5-14.5); WHITE BLOOD COUNT 11.3 10^3/uL (4.0-10.0)
[2017-07-10 18:33] LABS: ANION GAP 6 MEQ/L (8-16); BLOOD UREA NITROGEN 7 MG/DL (7-18); CARBON DIOXIDE LEVEL 27 MEQ/L (21-32); CHLORIDE LEVEL 105 MEQ/L (98-107); CREATININE FOR GFR 0.64 MG/DL (0.55-1.30); GLUCOSE, FASTING 138 MG/DL (70-100); POTASSIUM SERUM 4.4 MEQ/L (3.5-5.1); SODIUM LEVEL 138 MEQ/L (136-145)
[2017-07-10 18:36] LABS: GLOMERULAR FILTRATION RATE > 60.0 (>58)
[2017-07-10] MEDS: D5W/LR 1,000 ML IV (19:00)
[2017-07-11] MEDS: IPRATROPIUM 0.5MG/ALBUTEROL 2.5MG INH SOL UD 3ML (DUONEB)(J7620) NEB ×6 (00:07→20:18)
[2017-07-11 05:08] LABS: HEMATOCRIT 31.7 % (36.0-47.0); HEMOGLOBIN 10.5 g/dl (12.0-15.5); MEAN CORPUSCULAR HEMOGLOBIN 31.2 pg (27.0-33.0); MEAN CORPUSCULAR HGB CONC 33.1 g/dl (32.0-36.5); MEAN CORPUSCULAR VOLUME 94.1 fl (80.0-96.0); PLATELET COUNT, AUTOMATED 257 10^3/uL (150-450); RED BLOOD COUNT 3.37 10^6/uL (4.00-5.40); RED CELL DISTRIBUTION WIDTH 15.6 % (11.5-14.5); WHITE BLOOD COUNT 10.5 10^3/uL (4.0-10.0)
[2017-07-11] MEDS: D5W/LR 1,000 ML IV ×2 (05:14→18:16)
[2017-07-11] MEDS: PIPERACILLIN/TAZOBACTAM SOD 3.375 GM in D5W MINI-BAG PLUS 50 ML IV ×4 (05:15→23:06)
[2017-07-11] MEDS: OXAZEPAM 10 MG CAP PO ×2 (05:15→16:16)
[2017-07-11] MEDS: SLF 3 ML SYR IV ×3 (05:15→20:42)
[2017-07-11 05:24] LABS: ANION GAP 5 MEQ/L (8-16); BLOOD UREA NITROGEN 7 MG/DL (7-18); CALCIUM LEVEL 7.9 MG/DL (8.5-10.1); CARBON DIOXIDE LEVEL 29 MEQ/L (21-32); CHLORIDE LEVEL 107 MEQ/L (98-107); CREATININE FOR GFR 0.59 MG/DL (0.55-1.30); GLOMERULAR FILTRATION RATE > 60.0 (>58); GLUCOSE, FASTING 132 MG/DL (70-100); MAGNESIUM LEVEL 2.4 MG/DL (1.8-2.4); POTASSIUM SERUM 4.1 MEQ/L (3.5-5.1); SODIUM LEVEL 141 MEQ/L (136-145)
[2017-07-11] MEDS: NS 1,000 ML IV (08:49)
[2017-07-11] MEDS: MULTIVITAMINS/MINERALS THERAP 1 TAB PO (09:00)
[2017-07-11] MEDS: THIAMINE 100 MG TAB PO (09:00)
[2017-07-11] MEDS: ASPIRIN 81 MG ENTERIC TAB PO (09:00)
[2017-07-11] MEDS: CLOPIDOGREL 75 MG TAB PO (09:00)
[2017-07-11] MEDS: SENOKOT S TAB PO ×2 (09:00→20:42)
[2017-07-11] MEDS: DOCUSATE SODIUM 100 MG CAP PO ×2 (09:00→20:42)
[2017-07-11] MEDS: PANTOPRAZOLE 40MG TAB (PROTONIX) PO (09:00)
[2017-07-11] MEDS: FOLIC ACID 1 MG TAB PO (09:00)
[2017-07-11 15:33] LABS: APPEARANCE, URINE CLEAR (CLEAR); BACTERIA, URINE AUTO 1+ (NEGATIVE); BILIRUBIN, URINE AUTO NEGATIVE (NEGATIVE); BLOOD, URINE BLOOD 2+ (NEGATIVE); COLOR, URINE YELLOW (YELLOW); GLUCOSE, URINE (UA) AUTO NEGATIVE (NEGATIVE); KETONE, URINE AUTO NEGATIVE (NEGATIVE); LEUKOCYTE ESTERASE, URINE AUTO NEGATIVE (NEGATIVE); MUCUS, URINE SMALL (NEGATIVE); NITRITE, URINE AUTO NEGATIVE (NEGATIVE); PROTEIN, URINE AUTO NEGATIVE (NEGATIVE); RBC, URINE AUTO 17 /HPF (0-3); SQUAMOUS EPITHELIAL CELL UR AU 0 /HPF (0-6); UROBILINOGEN, URINE AUTO 0.2 mg/dL (0.0-2.0); WBC, URINE AUTO 3 /HPF (0-3)
[2017-07-12] MEDS: IPRATROPIUM 0.5MG/ALBUTEROL 2.5MG INH SOL UD 3ML (DUONEB)(J7620) NEB ×6 (04:00→19:49)
[2017-07-12] MEDS ORDERED: CEPACOL LOZENGE PO (05:15)
[2017-07-12] MEDS: PIPERACILLIN/TAZOBACTAM SOD 3.375 GM in D5W MINI-BAG PLUS 50 ML IV ×4 (05:24→22:38)
[2017-07-12] MEDS: SLF 3 ML SYR IV ×3 (05:29→22:38)
[2017-07-12] MEDS: OXAZEPAM 10 MG CAP PO (05:31)
[2017-07-12] MEDS: D5W/LR 1,000 ML IV ×3 (06:24→15:57)
[2017-07-12 08:04] LABS: BASO % 0.3 % (0.0-1.0); EOS # 0.2 10^3/uL (0.0-0.50); EOS % 2.3 % (0.0-3.0); HEMATOCRIT 29.6 % (36.0-47.0); HEMOGLOBIN 9.7 g/dl (12.0-15.5); IMMATURE GRANULOCYTE % 0.9 % (0-3.0); LYMPH # 1.2 10^3/uL (1.5-4.5); MEAN CORPUSCULAR HEMOGLOBIN 31.8 pg (27.0-33.0); MEAN CORPUSCULAR HGB CONC 32.8 g/dl (32.0-36.5); MONO # 0.9 10^3/uL (0.0-0.8); MONO % 9.5 % (0.0-5.0); NEUTROPHILS # 7.2 10^3/uL (1.8-7.7); PLATELET COUNT, AUTOMATED 289 10^3/uL (150-450); RED BLOOD COUNT 3.05 10^6/uL (4.00-5.40); RED CELL DISTRIBUTION WIDTH 15.3 % (11.5-14.5); WHITE BLOOD COUNT 9.6 10^3/uL (4.0-10.0)
[2017-07-12 08:38] LABS: ALBUMIN 2.1 GM/DL (3.2-5.2); ALBUMIN/GLOBULIN RATIO 0.49 (1.00-1.93); ALKALINE PHOSPHATASE 76 U/L (45-117); ALT/SGPT 14 U/L (12-78); ANION GAP 8 MEQ/L (8-16); AST/SGOT 18 U/L (7-37); BILIRUBIN,TOTAL 0.4 MG/DL (0.2-1.0); BLOOD UREA NITROGEN 6 MG/DL (7-18); CALCIUM LEVEL 8.1 MG/DL (8.5-10.1); CARBON DIOXIDE LEVEL 29 MEQ/L (21-32); CHLORIDE LEVEL 106 MEQ/L (98-107); CREATININE FOR GFR 0.54 MG/DL (0.55-1.30); GLOMERULAR FILTRATION RATE > 60.0 (>58); GLUCOSE, FASTING 113 MG/DL (70-100); POTASSIUM SERUM 3.7 MEQ/L (3.5-5.1); SODIUM LEVEL 143 MEQ/L (136-145); TOTAL PROTEIN 6.4 GM/DL (6.4-8.2)
[2017-07-12] MEDS: PANTOPRAZOLE 40MG INJ (PROTONIX) (C9113) IV (10:10)
[2017-07-12] MEDS: DOCUSATE SOD LIQ 100MG/10ML UDC PO ×2 (10:10→22:37)
[2017-07-12] MEDS: ASPIRIN 81 MG ENTERIC TAB PO (10:10)
[2017-07-12] MEDS: THIAMINE 100 MG TAB PO (10:11)
[2017-07-12] MEDS: SENOKOT S TAB PO ×2 (10:11→22:38)
[2017-07-12] MEDS: CLOPIDOGREL 75 MG TAB PO (10:11)
[2017-07-12] MEDS: MULTIVITAMINS/MINERALS THERAP 1 TAB PO (10:11)
[2017-07-12] MEDS: FOLIC ACID 1 MG TAB PO (10:11)
[2017-07-12] MEDS ORDERED: PILL CRUSHER/CUTTER 1 EACH XX (10:45)
[2017-07-12] MEDS: CHLORASEPTIC SPRAY MT (17:00)
[2017-07-13] MEDS: IPRATROPIUM 0.5MG/ALBUTEROL 2.5MG INH SOL UD 3ML (DUONEB)(J7620) NEB ×7 (03:32→23:40)
[2017-07-13] MEDS: D5W/LR 1,000 ML IV ×2 (04:41→17:33)
[2017-07-13 05:04] LABS: BASO % 0.4 % (0.0-1.0); EOS # 0.2 10^3/uL (0.0-0.50); EOS % 2.3 % (0.0-3.0); HEMATOCRIT 28.7 % (36.0-47.0); HEMOGLOBIN 9.3 g/dl (12.0-15.5); IMMATURE GRANULOCYTE % 1.1 % (0-3.0); LYMPH % 9.6 % (24.0-44.0); MEAN CORPUSCULAR HEMOGLOBIN 31.3 pg (27.0-33.0); MEAN CORPUSCULAR HGB CONC 32.4 g/dl (32.0-36.5); MEAN CORPUSCULAR VOLUME 96.6 fl (80.0-96.0); MONO # 0.8 10^3/uL (0.0-0.8); MONO % 7.7 % (0.0-5.0); NEUTROPHILS % 78.9 % (36.0-66.0); PLATELET COUNT, AUTOMATED 341 10^3/uL (150-450); RED BLOOD COUNT 2.97 10^6/uL (4.00-5.40); RED CELL DISTRIBUTION WIDTH 14.7 % (11.5-14.5); WHITE BLOOD COUNT 10.1 10^3/uL (4.0-10.0)
[2017-07-13 05:25] LABS: ANION GAP 5 MEQ/L (8-16); BLOOD UREA NITROGEN 4 MG/DL (7-18); C REACTIVE PROTEIN QUANTITATIV 9.83 MG/DL (0.00-0.30); CALCIUM LEVEL 8.1 MG/DL (8.5-10.1); CARBON DIOXIDE LEVEL 32 MEQ/L (21-32); CHLORIDE LEVEL 107 MEQ/L (98-107); CREATININE FOR GFR 0.49 MG/DL (0.55-1.30); GLOMERULAR FILTRATION RATE > 60.0 (>58); GLUCOSE, FASTING 111 MG/DL (70-100); SODIUM LEVEL 144 MEQ/L (136-145)
[2017-07-13] MEDS: SLF 3 ML SYR IV ×3 (06:00→21:19)
[2017-07-13] MEDS: PIPERACILLIN/TAZOBACTAM SOD 3.375 GM in D5W MINI-BAG PLUS 50 ML IV ×4 (06:28→23:35)
[2017-07-13] MEDS: KCL 10MEQ/100ML SWI (KRUN) 10 MEQ in APPROPRIATE DILUENT 1 EA IV ×2 (09:00→10:18)
[2017-07-13] MEDS: THIAMINE 100 MG TAB PO (10:16)
[2017-07-13] MEDS: ASPIRIN 81 MG ENTERIC TAB PO (10:17)
[2017-07-13] MEDS: SENOKOT S TAB PO ×2 (10:17→21:17)
[2017-07-13] MEDS: MULTIVITAMINS/MINERALS THERAP 1 TAB PO (10:17)
[2017-07-13] MEDS: CLOPIDOGREL 75 MG TAB PO (10:17)
[2017-07-13] MEDS: guaiFENesin ER 600 MG TAB PO ×2 (10:17→21:17)
[2017-07-13] MEDS: FOLIC ACID 1 MG TAB PO (10:17)
[2017-07-13] MEDS: DOCUSATE SOD LIQ 100MG/10ML UDC PO (10:18)
[2017-07-13] MEDS: PANTOPRAZOLE 40MG INJ (PROTONIX) (C9113) IV (10:18)
[2017-07-13] MEDS: POTASSIUM CHLORIDE 10 MEQ SR TABLET PO (13:43)
[2017-07-13] MEDS: DOCUSATE SODIUM 100 MG CAP PO (21:17)
[2017-07-14] MEDS: IPRATROPIUM 0.5MG/ALBUTEROL 2.5MG INH SOL UD 3ML (DUONEB)(J7620) NEB ×5 (04:35→21:22)
[2017-07-14 05:01] LABS: BASO % 0.4 % (0.0-1.0); EOS # 0.2 10^3/uL (0.0-0.50); EOS % 2.4 % (0.0-3.0); HEMATOCRIT 29.4 % (36.0-47.0); HEMOGLOBIN 9.3 g/dl (12.0-15.5); IMMATURE GRANULOCYTE % 1.3 % (0-3.0); LYMPH # 1.3 10^3/uL (1.5-4.5); LYMPH % 12.8 % (24.0-44.0); MEAN CORPUSCULAR HEMOGLOBIN 30.7 pg (27.0-33.0); MEAN CORPUSCULAR HGB CONC 31.6 g/dl (32.0-36.5); MONO # 0.9 10^3/uL (0.0-0.8); MONO % 8.9 % (0.0-5.0); NEUTROPHILS # 7.3 10^3/uL (1.8-7.7); NEUTROPHILS % 74.2 % (36.0-66.0); PLATELET COUNT, AUTOMATED 384 10^3/uL (150-450); RED BLOOD COUNT 3.03 10^6/uL (4.00-5.40); RED CELL DISTRIBUTION WIDTH 14.7 % (11.5-14.5); WHITE BLOOD COUNT 9.8 10^3/uL (4.0-10.0)
[2017-07-14] MEDS: PIPERACILLIN/TAZOBACTAM SOD 3.375 GM in D5W MINI-BAG PLUS 50 ML IV ×4 (05:14→23:41)
[2017-07-14] MEDS: SLF 3 ML SYR IV ×3 (05:15→20:49)
[2017-07-14] MEDS: D5W/LR 1,000 ML IV ×2 (05:15→13:00)
[2017-07-14 05:16] LABS: ANION GAP 7 MEQ/L (8-16); BLOOD UREA NITROGEN 3 MG/DL (7-18); C REACTIVE PROTEIN QUANTITATIV 8.67 MG/DL (0.00-0.30); CARBON DIOXIDE LEVEL 32 MEQ/L (21-32); CHLORIDE LEVEL 105 MEQ/L (98-107); CREATININE FOR GFR 0.52 MG/DL (0.55-1.30); GLOMERULAR FILTRATION RATE > 60.0 (>58); GLUCOSE, FASTING 102 MG/DL (70-100); POTASSIUM SERUM 2.8 MEQ/L (3.5-5.1); SODIUM LEVEL 144 MEQ/L (136-145)
[2017-07-14] MEDS ORDERED: POTASSIUM CHLORIDE 10 MEQ SR TABLET PO ×2 (05:45→11:00)
[2017-07-14] MEDS: POTASSIUM CHLORIDE 10 MEQ SR TABLET PO ×3 (06:00→20:48)
[2017-07-14] MEDS: MORPHINE 1MG/ML IN 0.9% NACL 100ML IV BAG IV (07:21)
[2017-07-14] MEDS: MULTIVITAMINS/MINERALS THERAP 1 TAB PO (09:30)
[2017-07-14] MEDS: CLOPIDOGREL 75 MG TAB PO (09:30)
[2017-07-14] MEDS: guaiFENesin ER 600 MG TAB PO ×2 (09:30→20:48)
[2017-07-14] MEDS: FOLIC ACID 1 MG TAB PO (09:30)
[2017-07-14] MEDS: THIAMINE 100 MG TAB PO (09:30)
[2017-07-14] MEDS: DOCUSATE SODIUM 100 MG CAP PO ×2 (09:31→20:49)
[2017-07-14] MEDS: PANTOPRAZOLE 40MG TAB (PROTONIX) PO (09:31)
[2017-07-14] MEDS: SENOKOT S TAB PO ×2 (09:31→20:48)
[2017-07-14] MEDS: ASPIRIN 81 MG ENTERIC TAB PO (09:31)
[2017-07-14 15:28] LABS: ANION GAP 8 MEQ/L (8-16); BLOOD UREA NITROGEN 4 MG/DL (7-18); CALCIUM LEVEL 8.2 MG/DL (8.5-10.1); CARBON DIOXIDE LEVEL 28 MEQ/L (21-32); CHLORIDE LEVEL 105 MEQ/L (98-107); CREATININE FOR GFR 0.57 MG/DL (0.55-1.30); GLOMERULAR FILTRATION RATE > 60.0 (>58); GLUCOSE, FASTING 115 MG/DL (70-100); POTASSIUM SERUM 3.3 MEQ/L (3.5-5.1); SODIUM LEVEL 141 MEQ/L (136-145)
[2017-07-14] MEDS: NORCO, ANEXSIA 5/325MG TABLET (HYDROcodone/ACETAMINOPHEN) PO ×2 (17:02→20:49)
[2017-07-14] MEDS: MORPHINE 4 MG/ML 1ML VIAL/SYRINGE (J2270) IV (23:41)
[2017-07-15] MEDS: IPRATROPIUM 0.5MG/ALBUTEROL 2.5MG INH SOL UD 3ML (DUONEB)(J7620) NEB ×7 (04:00→22:45)
[2017-07-15] MEDS: NORCO, ANEXSIA 5/325MG TABLET (HYDROcodone/ACETAMINOPHEN) PO ×4 (04:05→21:05)
[2017-07-15 05:15] LABS: BASO % 0.3 % (0.0-1.0); EOS # 0.3 10^3/uL (0.0-0.50); EOS % 3.1 % (0.0-3.0); HEMOGLOBIN 8.9 g/dl (12.0-15.5); LYMPH # 1.3 10^3/uL (1.5-4.5); LYMPH % 12.3 % (24.0-44.0); MEAN CORPUSCULAR HEMOGLOBIN 31.4 pg (27.0-33.0); MEAN CORPUSCULAR VOLUME 95.4 fl (80.0-96.0); MONO # 0.8 10^3/uL (0.0-0.8); MONO % 7.4 % (0.0-5.0); NEUTROPHILS % 75.9 % (36.0-66.0); PLATELET COUNT, AUTOMATED 408 10^3/uL (150-450); RED BLOOD COUNT 2.83 10^6/uL (4.00-5.40); RED CELL DISTRIBUTION WIDTH 14.7 % (11.5-14.5); WHITE BLOOD COUNT 10.6 10^3/uL (4.0-10.0)
[2017-07-15] MEDS: PIPERACILLIN/TAZOBACTAM SOD 3.375 GM in D5W MINI-BAG PLUS 50 ML IV ×4 (05:22→23:47)
[2017-07-15] MEDS: SLF 3 ML SYR IV ×5 (05:23→22:00)
[2017-07-15 05:35] LABS: ANION GAP 8 MEQ/L (8-16); BLOOD UREA NITROGEN 5 MG/DL (7-18); C REACTIVE PROTEIN QUANTITATIV 8.45 MG/DL (0.00-0.30); CALCIUM LEVEL 7.6 MG/DL (8.5-10.1); CARBON DIOXIDE LEVEL 28 MEQ/L (21-32); CHLORIDE LEVEL 105 MEQ/L (98-107); CREATININE FOR GFR 0.42 MG/DL (0.55-1.30); GLOMERULAR FILTRATION RATE > 60.0 (>58); GLUCOSE, FASTING 94 MG/DL (70-100); POTASSIUM SERUM 3.4 MEQ/L (3.5-5.1); SODIUM LEVEL 141 MEQ/L (136-145)
[2017-07-15] MEDS: POTASSIUM CHLORIDE 10 MEQ SR TABLET PO (10:16)
[2017-07-15] MEDS: THIAMINE 100 MG TAB PO (10:17)
[2017-07-15] MEDS: ASPIRIN 81 MG ENTERIC TAB PO (10:17)
[2017-07-15] MEDS: FOLIC ACID 1 MG TAB PO (10:18)
[2017-07-15] MEDS: guaiFENesin ER 600 MG TAB PO ×2 (10:18→20:19)
[2017-07-15] MEDS: DOCUSATE SODIUM 100 MG CAP PO ×2 (10:18→20:19)
[2017-07-15] MEDS: SENOKOT S TAB PO ×2 (10:18→20:19)
[2017-07-15] MEDS: MULTIVITAMINS/MINERALS THERAP 1 TAB PO (10:18)
[2017-07-15] MEDS: PANTOPRAZOLE 40MG TAB (PROTONIX) PO (10:18)
[2017-07-15] MEDS: CLOPIDOGREL 75 MG TAB PO (10:19)
[2017-07-16] MEDS: NORCO, ANEXSIA 5/325MG TABLET (HYDROcodone/ACETAMINOPHEN) PO ×4 (01:01→13:24)
[2017-07-16] MEDS: IPRATROPIUM 0.5MG/ALBUTEROL 2.5MG INH SOL UD 3ML (DUONEB)(J7620) NEB ×3 (03:01→11:41)
[2017-07-16] MEDS: PIPERACILLIN/TAZOBACTAM SOD 3.375 GM in D5W MINI-BAG PLUS 50 ML IV ×2 (05:13→11:19)
[2017-07-16] MEDS: SLF 3 ML SYR IV ×2 (05:13→13:18)
[2017-07-16 05:40] LABS: BASO % 0.4 % (0.0-1.0); EOS # 0.3 10^3/uL (0.0-0.50); HEMATOCRIT 29.6 % (36.0-47.0); HEMOGLOBIN 9.3 g/dl (12.0-15.5); IMMATURE GRANULOCYTE % 0.8 % (0-3.0); LYMPH # 1.1 10^3/uL (1.5-4.5); LYMPH % 10.3 % (24.0-44.0); MEAN CORPUSCULAR HEMOGLOBIN 30.9 pg (27.0-33.0); MEAN CORPUSCULAR HGB CONC 31.4 g/dl (32.0-36.5); MEAN CORPUSCULAR VOLUME 98.3 fl (80.0-96.0); MONO # 0.6 10^3/uL (0.0-0.8); NEUTROPHILS # 8.8 10^3/uL (1.8-7.7); NEUTROPHILS % 80.5 % (36.0-66.0); PLATELET COUNT, AUTOMATED 433 10^3/uL (150-450); RED BLOOD COUNT 3.01 10^6/uL (4.00-5.40); RED CELL DISTRIBUTION WIDTH 14.5 % (11.5-14.5); WHITE BLOOD COUNT 10.9 10^3/uL (4.0-10.0)
[2017-07-16 06:08] LABS: ANION GAP 6 MEQ/L (8-16); BLOOD UREA NITROGEN 5 MG/DL (7-18); C REACTIVE PROTEIN QUANTITATIV 9.68 MG/DL (0.00-0.30); CALCIUM LEVEL 7.6 MG/DL (8.5-10.1); CARBON DIOXIDE LEVEL 23 MEQ/L (21-32); CHLORIDE LEVEL 108 MEQ/L (98-107); CREATININE FOR GFR 0.45 MG/DL (0.55-1.30); GLOMERULAR FILTRATION RATE > 60.0 (>58); GLUCOSE, FASTING 80 MG/DL (70-100); POTASSIUM SERUM 4.2 MEQ/L (3.5-5.1); SODIUM LEVEL 137 MEQ/L (136-145)
[2017-07-16 06:14] LABS: POS COUNT POS FLAG
[2017-07-16] MEDS: PANTOPRAZOLE 40MG TAB (PROTONIX) PO (09:28)
[2017-07-16] MEDS: DOCUSATE SODIUM 100 MG CAP PO (09:28)
[2017-07-16] MEDS: guaiFENesin ER 600 MG TAB PO (09:28)
[2017-07-16] MEDS: THIAMINE 100 MG TAB PO (09:28)
[2017-07-16] MEDS: ASPIRIN 81 MG ENTERIC TAB PO (09:29)
[2017-07-16] MEDS: SENOKOT S TAB PO (09:29)
[2017-07-16] MEDS: FOLIC ACID 1 MG TAB PO (09:29)
[2017-07-16] MEDS: CLOPIDOGREL 75 MG TAB PO (09:29)
[2017-07-16] MEDS: MULTIVITAMINS/MINERALS THERAP 1 TAB PO (09:29)
== END 2017-07-16 16:18 | disposition home or self-care (01) | DRG 169 ==
LOC: M ICU 07-05 11:16 → M PCU 07-12 03:19 → M MSPAV 14:50
PROC: 041 Lower Arteries, Bypass (ICD-10-PCS; principal; 2017-07-09 16:00)
PROC: 041 Lower Arteries, Bypass (ICD-10-PCS; 2017-07-09 16:00)
PROC: 04CK0ZZ Extirpation of Matter from Right Femoral Artery, Open Approach (ICD-10-PCS; 2017-07-09 16:00)
PROC: 04CD0ZZ Extirpation of Matter from Left Common Iliac Artery, Open Approach (ICD-10-PCS; 2017-07-09 16:00)
PROC: 0DNU0ZZ Release Omentum, Open Approach (ICD-10-PCS; 2017-07-09 16:00)
PROC: 04C00ZZ Extirpation of Matter from Abdominal Aorta, Open Approach (ICD-10-PCS; 2017-07-09 16:00)
PROC: 0DN80ZZ Release Small Intestine, Open Approach (ICD-10-PCS; 2017-07-09 16:00)
PROC: 0DNW0ZZ Release Peritoneum, Open Approach (ICD-10-PCS; 2017-07-09 16:00)
DX: I70.262 Atherosclerosis of native arteries of extremities with gangrene, left leg (principal); J96.00 Acute respiratory failure, unspecified whether with hypoxia or hypercapnia; J18.9 Pneumonia, unspecified organism; I95.2 Hypotension due to drugs; L03.115 Cellulitis of right lower limb; E87.6 Hypokalemia; I70.0 Atherosclerosis of aorta; K66.0 Peritoneal adhesions (postprocedural) (postinfection); F17.200 Nicotine dependence, unspecified, uncomplicated; D62 Acute posthemorrhagic anemia; F12.90 Cannabis use, unspecified, uncomplicated; F10.10 Alcohol abuse, uncomplicated; I70.223 Atherosclerosis of native arteries of extremities with rest pain, bilateral legs; K91.89 Other postprocedural complications and disorders of digestive system; I70.213 Atherosclerosis of native arteries of extremities with intermittent claudication, bilateral legs

== ENCOUNTER → 2017-07-30 | Outpatient (REF) | payer BC ==
[2017-07-30 12:44] LABS: BASO # 0.1 10^3/uL (0.0-0.2); BASO % 0.6 % (0.0-1.0); EOS # 0.3 10^3/uL (0.0-0.50); EOS % 3.5 % (0.0-3.0); HEMATOCRIT 32.5 % (36.0-47.0); HEMOGLOBIN 10.2 g/dl (12.0-15.5); IMMATURE GRANULOCYTE % 0.5 % (0-3.0); LYMPH # 1.6 10^3/uL (1.5-4.5); LYMPH % 18.9 % (24.0-44.0); MEAN CORPUSCULAR HEMOGLOBIN 30.4 pg (27.0-33.0); MEAN CORPUSCULAR HGB CONC 31.4 g/dl (32.0-36.5); MONO # 0.6 10^3/uL (0.0-0.8); MONO % 7.5 % (0.0-5.0); NEUTROPHILS # 5.7 10^3/uL (1.8-7.7); PLATELET COUNT, AUTOMATED 383 10^3/uL (150-450); RED BLOOD COUNT 3.35 10^6/uL (4.00-5.40); RED CELL DISTRIBUTION WIDTH 14.3 % (11.5-14.5); WHITE BLOOD COUNT 8.3 10^3/uL (4.0-10.0)
[2017-07-30 13:23] LABS: VITAMIN B12 LEVEL 276 PG/ML
[2017-07-30 13:24] LABS: FERRITIN 133 NG/ML (8-252); FOLATE > 24.0 NG/ML; IRON (FE) 65 UG/DL (50-170); PERCENT SATURATION 23.2 % (13.2-45.0); TOTAL IRON BINDING CAPACITY 280 UG/DL (250-450)
== END ==
LOC: M SFHCADAM 10:39
DX: D64.9 Anemia, unspecified (principal)
CPT/HCPCS: 82746

== ENCOUNTER → 2017-09-30 | Outpatient (CLI) | payer BC | LOC: M RAD 10:39 | DX: I70.201 Unspecified atherosclerosis of native arteries of extremities, right leg (principal) | CPT/HCPCS: 93925 ==

== ENCOUNTER → 2017-11-12 | Outpatient (REF) | payer BC ==
[2017-11-12 19:40] LABS: BASO % 0.6 % (0.0-1.0); EOS # 0.1 10^3/uL (0.0-0.50); EOS % 0.9 % (0.0-3.0); HEMOGLOBIN 13.8 g/dl (12.0-15.5); IMMATURE GRANULOCYTE % 0.3 % (0-3.0); LYMPH # 1.6 10^3/uL (1.5-4.5); LYMPH % 22.9 % (24.0-44.0); MEAN CORPUSCULAR HEMOGLOBIN 30.5 pg (27.0-33.0); MEAN CORPUSCULAR HGB CONC 32.1 g/dl (32.0-36.5); MEAN CORPUSCULAR VOLUME 95.1 fl (80.0-96.0); MONO # 0.6 10^3/uL (0.0-0.8); NEUTROPHILS # 4.8 10^3/uL (1.8-7.7); NEUTROPHILS % 67.3 % (36.0-66.0); PLATELET COUNT, AUTOMATED 276 10^3/uL (150-450); RED BLOOD COUNT 4.52 10^6/uL (4.00-5.40); RED CELL DISTRIBUTION WIDTH 14.3 % (11.5-14.5)
[2017-11-12 20:00] LABS: ALBUMIN 4.1 GM/DL (3.2-5.2); ALKALINE PHOSPHATASE 90 U/L (45-117); ALT/SGPT 19 U/L (12-78); ANION GAP 10 MEQ/L (8-16); AST/SGOT 13 U/L (7-37); BILIRUBIN,TOTAL 0.5 MG/DL (0.2-1.0); BLOOD UREA NITROGEN 8 MG/DL (7-18); CALCIUM LEVEL 9.2 MG/DL (8.5-10.1); CARBON DIOXIDE LEVEL 26 MEQ/L (21-32); CHLORIDE LEVEL 103 MEQ/L (98-107); CREATININE FOR GFR 0.65 MG/DL (0.55-1.30); GLOMERULAR FILTRATION RATE > 60.0 (>58); GLUCOSE, FASTING 89 MG/DL (70-100); POTASSIUM SERUM 3.6 MEQ/L (3.5-5.1); SODIUM LEVEL 139 MEQ/L (136-145); TOTAL PROTEIN 8.2 GM/DL (6.4-8.2)
== END ==
LOC: M SFHCADAM 16:11
DX: I74.5 Embolism and thrombosis of iliac artery (principal); D63.8 Anemia in other chronic diseases classified elsewhere; I70.90 Unspecified atherosclerosis; E53.8 Deficiency of other specified B group vitamins
CPT/HCPCS: 82607

== ENCOUNTER → 2018-04-16 | Outpatient (CLI) | payer BC ==
[~2018-04-16] MED LIST changes: +ALBU17IN2 INH; +ASPI81TA24 PO; -BISACODYL 10 MG SUPP PR; +COLA100C5 PO; +FOLI1TAB11 PO; -HEPARIN DRIP 25,000 UNITS in APPROPRIATE DILUENT 1 EA IV; +HYDR-3713 PO; +LASI20TA3 PO; -MOM 30ML SUSPENSION UDC PO; -MORPHINE 4 MG/ML 1ML VIAL/SYRINGE (J2270) IV; +NICO14PA TD; +NORCOTAB PO; -ONDANSETRON 4MG/2ML VIAL (J2405) IV; +OXYC1TAB23 PO; +PERC5TAB12 PO; +PLAV1TAB2 PO; +THIA100TA PO; +VENTAER INH; +VITMTA PO
--- NOTE | 2018-04-24 13:41 | REP ---
Abdominal aortic sonography: Repeat dictation. History: Status post aortobi-iliac bypass graft June of 2017 for followup. Atherosclerosis. Sonographic findings: The abdominal aorta measures 2.3 x 2.1 cm in greatest AP by transverse dimension respectively at the diaphragmatic hiatus. At the level of the renal arteries these dimensions are 2.0 x 2.3 cm and at mid aorta, 1.7 x 2.3 cm. The distal aorta measures 3.0 x 3.3 cm consistent with mildly dilated distal aorta. The aortoiliac anastomotic region is not well seen but the right iliac limb of the graft demonstrates Doppler velocity of 178 cm/sec. The left proximal graft 190 cm/sec. The right external iliac artery Doppler flow velocity is 161 cm/sec. The left external iliac artery flow velocity is 200 cm/sec. Impression: There is a 3.0 cm dilation of the distal abdominal aorta. The patient is status post aortobi-iliac bypass graft. The anastomoses are not well seen but iliac limbs are patent with normal velocities. Electronically Signed by Jose Rafael Kramer MD 04/24/2018 04:31 P
== END ==
LOC: M RAD 07:02
PROVIDERS: ATTEND Surgery Vascular Surgery
DX: I70.0 Atherosclerosis of aorta (principal); I70.8 Atherosclerosis of other arteries; I77.811 Abdominal aortic ectasia; Z95.1 Presence of aortocoronary bypass graft

== ENCOUNTER → 2018-11-21 | Outpatient (CLI) | payer BC ==
[~2018-11-21] MED LIST changes: -ALBU17IN2 INH; +HYDR-3715 PO; -NORCOTAB PO; +PROV108A INH
--- NOTE | 2018-11-21 15:44 | REP ---
ULTRASOUND ABDOMINAL AORTA: Real-time sonographic evaluation of the abdominal aorta performed and compared to a prior study of 04/16/2018. Proximal abdominal aorta measures 2.3 x 2.1 cm, at the level of the renal artery is 2.1 x 2.1 cm and mid aspect 1.9 x 2.0 cm. Distal abdominal aorta measures 2.9 x 3.0 cm. These measurements are stable. Negative common iliac arteries are occluded. There is an aortobiiliac bypass graft. Anastomosis again is not well visualized. However, both limbs of the bypass graft demonstrate patent triphasic flow. Peak systolic velocity in the right iliac limb is 250 cm/s and in the left iliac limb is 253 cm/s. At the right anastomosis with the negative common iliac artery peak velocity is 194 cm/s, in the [place] common iliac artery 220 cm/s. Peak systolic velocity at the anastomosis with the left common iliac artery is 186 cm/s and in the [place] left common iliac artery 178 cm/s. IMPRESSION: Essentially stable exam as discussed in detail above. Electronically Signed by Leif Coleman MD 11/25/2018 04:37 P
== END ==
LOC: M RAD 08:59
PROVIDERS: ATTEND Surgery Vascular Surgery
DX: I70.0 Atherosclerosis of aorta (principal); I70.8 Atherosclerosis of other arteries; I70.213 Atherosclerosis of native arteries of extremities with intermittent claudication, bilateral legs

== ENCOUNTER → 2019-01-05 | Outpatient (REF) | payer BC ==
[2019-01-05 12:40] LABS: BASO # 0.1 10^3/uL (0.0-0.2); EOS # 0.1 10^3/uL (0.0-0.5); EOS % 1.8 % (0.0-3.0); HEMATOCRIT 45.4 % (36.0-47.0); HEMOGLOBIN 14.6 g/dl (12.0-15.5); LYMPH % 20.9 % (24.0-44.0); MEAN CORPUSCULAR HEMOGLOBIN 31.3 pg (27.0-33.0); MEAN CORPUSCULAR HGB CONC 32.2 g/dl (32.0-36.5); MEAN CORPUSCULAR VOLUME 97.2 fl (80.0-96.0); MONO # 0.6 10^3/uL (0.0-0.8); NEUTROPHILS # 3.2 10^3/uL (1.5-8.5); NEUTROPHILS % 65.1 % (36.0-66.0); PLATELET COUNT, AUTOMATED 278 10^3/uL (150-450); RED BLOOD COUNT 4.67 10^6/uL (4.00-5.40)
[2019-01-05 13:22] LABS: ALBUMIN 3.7 GM/DL (3.2-5.2); ALT/SGPT 33 U/L (12-78); BILIRUBIN,TOTAL 0.5 MG/DL (0.2-1.0); BLOOD UREA NITROGEN 7 MG/DL (7-18); CALCIUM LEVEL 8.7 MG/DL (8.5-10.1); CARBON DIOXIDE LEVEL 28 MEQ/L (21-32); CHLORIDE LEVEL 104 MEQ/L (98-107); CHOLESTEROL LEVEL 153 MG/DL (<200); CHOLESTEROL RISK RATIO 1.561 (<5); CREATININE FOR GFR 0.57 MG/DL (0.55-1.30); GLOMERULAR FILTRATION RATE > 60.0 (>51); GLUCOSE, FASTING 103 MG/DL (70-100); HDL CHOLESTEROL 98 MG/DL (>40); LDL CHOLESTEROL 46 MG/DL (<100); NON-HDL-C 55 MG/DL; POTASSIUM SERUM 4.3 MEQ/L (3.5-5.1); SODIUM LEVEL 139 MEQ/L (136-145); TOTAL 25(OH) VITAMIN D 16.7 NG/ML (30.0-100.0); TOTAL PROTEIN 7.5 GM/DL (6.4-8.2); TRIGLYCERIDES LEVEL 44 MG/DL (<150); VITAMIN B12 LEVEL 1129 PG/ML (247-911)
== END ==
LOC: M SFHCADAM 11:06
PROVIDERS: ATTEND Physician Assistant Medical
DX: E66.01 Morbid (severe) obesity due to excess calories (principal); F12.10 Cannabis abuse, uncomplicated; D63.8 Anemia in other chronic diseases classified elsewhere; I74.5 Embolism and thrombosis of iliac artery

== ENCOUNTER → 2019-01-21 | Outpatient (CLI) | payer BC ==
--- NOTE | 2019-01-21 10:02 | REP ---
Clinical: Abdominal pain and ventral hernia. Technique: Axial noncontrast images from the lung bases to the pubic symphysis with coronal and sagittal re-formations. Comparison: 06/28/2017. Findings: Few small fat containing infraumbilical midline ventral hernias are identified with mild amounts of adjacent fat stranding (images 70 - 80; 80 - 87; 95 - 105). Largest of these fat containing hernias measures 3.1 cm maximal diameter (images 95 - 105). No adjacent fluid collection and no associated bowel hernia noted. Liver, spleen, pancreas, gallbladder, bilateral adrenal glands and kidneys are essentially normal for noncontrast evaluation. Enteric system is without obstruction or acute inflammatory process. Mucosal thickening involving moderate length of sigmoid colon warrants colonoscopy to exclude active pathology versus chronic changes related to prior diverticulitis. Pelvis demonstrates normal bladder and suspected subtle myomatous changes to the uterus. No ascites. No free air. No obvious adenopathy. Infrarenal abdominal aortic aneurysm measures approximately 3 cm maximal diameter and is consistent with prior aortic ultrasound. Impression: 1. Small fat containing ventral hernias inferior to the umbilicus measuring up to 3.1 cm diameter. Adjacent fat stranding is nonspecific. There is no fluid collection or free air. 2. Moderate length mucosal thickening of the sigmoid colon warrants colonoscopy evaluation. Diffuse diverticulosis noted without acute diverticulitis. 3. Infrarenal abdominal aortic aneurysm measuring 3 cm maximal diameter similar to recent ultrasound findings. Electronically Signed by Sridhar Hendricks MD 01/21/2019 09:54 A
== END ==
LOC: M RAD 09:07
PROVIDERS: ATTEND Surgery
DX: K43.9 Ventral hernia without obstruction or gangrene (principal); K57.30 Diverticulosis of large intestine without perforation or abscess without bleeding; I71.4 Abdominal aortic aneurysm, without rupture

== ENCOUNTER → 2019-07-23 | Outpatient (CLI) | payer BC ==
--- NOTE | 2019-07-23 20:48 | REP ---
Clinical: Follow up abdominal aortic aneurysm. Technique: Real time [place] scale ultrasound examination using curved array transducer. Comparison: CT dated 01/14/2019. Findings: Distal abdominal aortic aneurysm is again identified and measures 3.1 x 3.4 cm in diameter and approximately 4 cm in craniocaudal length originating 5 cm from the level of the renal arteries and tapering to normal before bifurcation to common iliac arteries. Proximal aorta measures 2.5 x 2.4 cm maximal diameter Mid aorta measures 1.5 x 1.8 cm maximal diameter Distal aorta measures 3.1 x 3.4 cm maximal diameter Right iliac artery measures 1.0 x 0.8 cm maximal diameter Left iliac artery measures 0.9 x 0.8 cm maximal diameter Impression: Mild infrarenal abdominal aortic aneurysm relatively stable as compared to CT dated 12/2018. Electronically Signed by Sridhar Hendricks MD 07/23/2019 08:39 P
== END ==
LOC: M RAD 08:53
PROVIDERS: ATTEND Physician Assistant
DX: I70.0 Atherosclerosis of aorta (principal); I71.4 Abdominal aortic aneurysm, without rupture

== ENCOUNTER → 2019-09-16 | Outpatient (CLI) | payer BC ==
[~2019-09-16] MED LIST changes: +ACET-683 PO; +ALBUTEROL SULFATE INH; +CYAN500T8 PO; +EPIP0.3I2 IM; +PROT1TAB2 PO; +SERT-141 PO; +SIMV40TA20 PO; +VITAMIN D PO
--- NOTE | 2019-09-16 13:37 | REP ---
Bilateral lower extremity arterial Doppler ultrasound: History: History of aortoiliac bypass graft in 2018. [place] atherosclerosis. Intermittent claudication bilateral legs. Comparison study September 30, 2017. Comparison CT study January 21, 2019. Findings: The distal aorta above the bypass graft demonstrates normal peak systolic flow velocity 68 cm/sec. It is difficult to image the exact iliac anastomosing areas. Right common iliac artery peak systolic flow velocity is 125 cm/sec and right external iliac artery peak systolic flow velocity is 132 cm/sec. Left common iliac and left external iliac PSV these are 186 and 141 respectively. Ankle brachial index was normal measured at 0.9 bilaterally. Brachial artery pressure was 130 on the left and 155 on the right. Normal waveforms and velocities are seen in the lower extremity arteries bilaterally. No high-grade stenosis is seen. Velocity chart right lower extremity: Right CF A 151 cm/S Profunda 128 Proximal SFA 136 Mid SFA 150 Distal SFA 91 Popliteal 70 Proximal AT A 67 Tibioperoneal trunk 74 Proximal TELEVISION SCHEDULE COORDINATOR 68 Distal TELEVISION SCHEDULE COORDINATOR 66 Distal AT A 51 Velocity chart left lower extremity: CF A 101 cm/S Profunda 65 Proximal SFA 116 Mid SFA 126 Distal SFA 72 Popliteal 82 Proximal AT A 33 Tibioperoneal trunk 77 Proximal TELEVISION SCHEDULE COORDINATOR 65 Distal TELEVISION SCHEDULE COORDINATOR 68 Distal AT A 40 Electronically Signed by Jose Rafael Kramer MD 09/16/2019 01:29 P
== END ==
LOC: M RAD 11:49
PROVIDERS: ATTEND Physician Assistant
DX: I65.23 Occlusion and stenosis of bilateral carotid arteries (principal); I70.213 Atherosclerosis of native arteries of extremities with intermittent claudication, bilateral legs; Z95.828 Presence of other vascular implants and grafts; R09.89 Other specified symptoms and signs involving the circulatory and respiratory systems

== ENCOUNTER → 2019-09-17 | Outpatient (CLI) | payer BC | LOC: M RAD 11:55 | PROVIDERS: ATTEND Physician Assistant | DX: I65.23 Occlusion and stenosis of bilateral carotid arteries (principal); I70.213 Atherosclerosis of native arteries of extremities with intermittent claudication, bilateral legs; Z95.828 Presence of other vascular implants and grafts; R09.89 Other specified symptoms and signs involving the circulatory and respiratory systems ==

== ENCOUNTER → 2019-11-10 | Outpatient (CLI) | payer BC ==
[~2019-11-10] MED LIST changes: +ACETAMINOPHEN 325 MG TAB As Ordered ONE; +ACETAMINOPHEN TAB 650MG DOSE (2X325MG) PO SCH; +ISOVUE-300 61% 50ML VIAL As Ordered ONE; +LIDOCAINE 1% MDV 20ML VIAL As Ordered ONE; +MIDAZOLAM INJ 2MG/2ML VIAL (J2250 PER 1MG) As Ordered ONE; +fentaNYL 100 MCG/2 ML INJECTION (J3010) As Ordered ONE
[2019-11-10 09:15] LABS: HEMATOCRIT 41.6 % (36.0-47.0); HEMOGLOBIN 13.5 g/dl (12.0-15.5); MEAN CORPUSCULAR HEMOGLOBIN 32.1 pg (27.0-33.0); MEAN CORPUSCULAR HGB CONC 32.5 g/dl (32.0-36.5); MEAN CORPUSCULAR VOLUME 98.8 fl (80.0-96.0); PLATELET COUNT, AUTOMATED 205 10^3/uL (150-450); RED BLOOD COUNT 4.21 10^6/uL (4.00-5.40); WHITE BLOOD COUNT 6.5 10^3/uL (4.0-10.0)
[2019-11-10 09:41] LABS: BLOOD UREA NITROGEN 11 MG/DL (7-18); CALCIUM LEVEL 8.6 MG/DL (8.5-10.1); CARBON DIOXIDE LEVEL 28 MEQ/L (21-32); CHLORIDE LEVEL 110 MEQ/L (98-107); CREATININE FOR GFR 0.31 MG/DL (0.55-1.30); GLOMERULAR FILTRATION RATE > 60.0 (>51); GLUCOSE, FASTING 98 MG/DL (70-100); POTASSIUM SERUM 3.5 MEQ/L (3.5-5.1); SODIUM LEVEL 144 MEQ/L (136-145)
--- NOTE | 2019-11-10 14:43 | ROOPDOC ---
[facility] Report Of Operation Report of Operation DATE OF PROCEDURE: 11/10/19 PREPROCEDURE DIAGNOSES: Atherosclerosis of the [place] arteries with worsening lifestyle limiting claudication left upper extremity POSTPROCEDURE DIAGNOSES: Same PROCEDURE: 1. Ultrasound-guided access right common femoral artery 2. Arteriogram of the aortic arch 3. Mynx closure right common femoral artery SURGEON: Francisco Kennedy MD ANESTHESIA: Local anesthesia 7 mL lidocaine. Moderate intravenous conscious sedation was supervised by Dr. Kennedy. The patient was independently monitored by registered nurse assigned to the Department of radiology using automated blood pressure, EKG, pulse oximetry. A detailed sedation record is probably stored in the hospital information system. The following is a brief sedation record: Start time 11:29, stop time 11:55, Versed 0.5 mg IV, fentanyl 25 g IV. INDICATION FOR PROCEDURE: This is a very pleasant 49-year-old patient with a known history of profound vascular disease status post aortoiliac bypass for dense calcified occlusive plaque in the distal aorta and proximal iliac arterie s, who has had worsening claudication in the left upper extremity. Her carotid duplex did show reversal of flow in the left vertebral artery consistent with subclavian steal. She has monophasic signals in the left upper extremity. Initially, I discussed with her that if she had mild claudication symptoms, perhaps no further intervention would be needed, but the patient reports wors ening claudication and says even with mild activity like brushing her hair her arm gets very tired and weak. Therefore, I discussed formal imaging would be indicated to see if she has any flow through the left subclavian artery, as this was not visualized on arterial duplex. If she does not have a complete occlusion, we may be able to treat her with angioplasty and stenting. She does have a complete occlusion, its possible we can use the imaging for preop planning for possible left carotid to left subclavian bypass. Risks benefits and alternatives to the procedure, including arteriogram, possible angioplasty, possible stent were explained to the patient. I discussed with her that we would first start with a right groin access, and possibly would need a left brachial access including open cut down to close the artery, if indicated. She was agreeable to this plan. Informed consent was obtained. INTERPRETATION: 1. Arteriogram of the aortic arch reveals widely patent arch proximally with good flow into the innominate artery, right carotid, and right subclavian, good flow into the left common carotid artery, but occlusive dense calcified plaque for 2-3 cm at the origin of the left subclavian artery. The plaque protrudes into the aortic arch at the origin of the left subclavian. It is visible even without contrast injection due to the heavy calcified nature. Despite our best efforts, we were not even able to get a wire started into the subclavian occlusion due to the protrusion of the plaque into the aortic arch. This continued to deter the wire away from the area, and the entire area was densely occlusively calcified with no reconstitution distally on arteriogram. REPORT OF OPERATION: Patient was brought to the Angiographic suite in stable condition. Her bilateral groins were prepped and draped in a sterile fashion including her left upper extremity as well. A timeout was performed. Sedation was administered without complication. Her right groin was examined with ultrasound. Local anesthesia was used to anesthetize the skin and a microneedle was used to access the right common femoral artery over the femoral head under ultrasound guidance. A wire was passed through this access needle was removed. A 4 [place] sheath was placed and flushed with saline. Glidewire was advanced through the sheath into the central system and up into the aortic arch under fluoroscopic guidance. It was difficult to navigate the wire through the arch due to calcium deflecting the wire at the origin of the left subclavian. Eventually, with the help of the Gavin cath, we're able to navigate the wire into the proximal aortic arch. We then exchange the sheath over the wire for a 6 [place] sheath and flushed sheath with saline. We advanced a pigtail catheter over the wire into the proximal aortic arch. An arteriogram was performed with multiple angles, please see interpretation above. Despite aggressive efforts for 20-30 minutes, we were not able to even come close to crossing the occlusion in the left subclavian. It was difficult to even find a hold for the wire due to the heavy dense plaque protruding into the aortic arch which continue to deflect the wire the catheter away. We tried multiple catheters, but were unsuccessful. Eventually, I felt this was futile and we concluded the procedure. The catheter was removed over the wire and a Mynx closure device was deployed at the right groin under fluoroscopic guidance. Good hemostasis was noted and pressure was held for 5 minutes and sterile dressings were applied. The patient was then taken to recovery in stable condition. She tolerated the procedure and the sedation well. ESTIMATED BLOOD LOSS: Approximately 2 mL. COMPLICATIONS: None. PLAN: We will see the patient back in clinic to discuss options for ongoing surveillance of her left upper extremity claudication if her symptoms are tolerable, versus a carotid to left subclavian bypass, if her symptoms are not tolerable. This is a procedure with a certain amount of risk involved, so we do not 1 into it unless the patient is highly symptomatic. We will go over with her in clinic all the risks benefits and alternatives to make a decision at that time. For now, she can continue to use her left upper extremity as able, and rest when symptoms occur. We appreciate the opportunity to participate in the care of this patient. FRANCISCO KENNEDY MD Nov 10, 2019 14:43
[2019-11-10 16:00] VITALS: BP 121/61
== END ==
LOC: M IRPRO 08:31
PROVIDERS: ATTEND Surgery Vascular Surgery
DX: I70.218 Atherosclerosis of native arteries of extremities with intermittent claudication, other extremity (principal)
CPT/HCPCS: 36221; 80048; 85027; 99152; 99153; C1760; C1769; C1887; C1894; J1644; J2250; J3010; Q9967

== ENCOUNTER → 2020-01-19 | Outpatient (REF) | payer BC ==
[~2020-01-19] MED LIST changes: -ACETAMINOPHEN 325 MG TAB As Ordered ONE; -ACETAMINOPHEN TAB 650MG DOSE (2X325MG) PO SCH; -ISOVUE-300 61% 50ML VIAL As Ordered ONE; -LIDOCAINE 1% MDV 20ML VIAL As Ordered ONE; -MIDAZOLAM INJ 2MG/2ML VIAL (J2250 PER 1MG) As Ordered ONE; -fentaNYL 100 MCG/2 ML INJECTION (J3010) As Ordered ONE
[2020-01-19 16:44] LABS: BASO # 0.1 10^3/uL (0.0-0.2); BASO % 1.1 % (0.0-1.0); EOS # 0.1 10^3/uL (0.0-0.5); EOS % 0.9 % (0.0-3.0); HEMATOCRIT 44.7 % (36.0-47.0); HEMOGLOBIN 14.4 g/dl (12.0-15.5); LYMPH # 1.4 10^3/uL (1.5-5.0); LYMPH % 25.1 % (24.0-44.0); MEAN CORPUSCULAR HEMOGLOBIN 31.6 pg (27.0-33.0); MEAN CORPUSCULAR HGB CONC 32.2 g/dl (32.0-36.5); MEAN CORPUSCULAR VOLUME 98.2 fl (80.0-96.0); MONO # 0.5 10^3/uL (0.0-0.8); MONO % 9.5 % (0.0-5.0); NEUTROPHILS # 3.5 10^3/uL (1.5-8.5); NEUTROPHILS % 63.2 % (36.0-66.0); PLATELET COUNT, AUTOMATED 316 10^3/uL (150-450); RED BLOOD COUNT 4.55 10^6/uL (4.00-5.40); WHITE BLOOD COUNT 5.5 10^3/uL (4.0-10.0)
[2020-01-19 17:23] LABS: ALT/SGPT 22 U/L (12-78); BILIRUBIN,TOTAL 0.5 MG/DL (0.2-1.0); BLOOD UREA NITROGEN 8 MG/DL (7-18); CALCIUM LEVEL 9.2 MG/DL (8.5-10.1); CARBON DIOXIDE LEVEL 28 MEQ/L (21-32); CHLORIDE LEVEL 102 MEQ/L (98-107); CHOLESTEROL LEVEL 167 MG/DL (<200); CHOLESTEROL RISK RATIO 1.704 (<5); CREATININE FOR GFR 0.56 MG/DL (0.55-1.30); GLOMERULAR FILTRATION RATE > 60.0 (>51); GLUCOSE, FASTING 119 MG/DL (70-100); HDL CHOLESTEROL 98 MG/DL (>40); LDL CHOLESTEROL 60 MG/DL (<100); NON-HDL-C 69 MG/DL; POTASSIUM SERUM 4.1 MEQ/L (3.5-5.1); SODIUM LEVEL 138 MEQ/L (136-145); TOTAL PROTEIN 7.8 GM/DL (6.4-8.2); TRIGLYCERIDES LEVEL 43 MG/DL (<150)
== END ==
LOC: M SFHCADAM 13:22
PROVIDERS: ATTEND Physician Assistant Medical
DX: I70.90 Unspecified atherosclerosis (principal); E66.01 Morbid (severe) obesity due to excess calories; E55.9 Vitamin D deficiency, unspecified

== ENCOUNTER → 2020-03-01 | Outpatient (CLI) | payer BC ==
[~2020-03-01] MED LIST changes: +CYAN500T14 PO; -CYAN500T8 PO
--- NOTE | 2020-03-01 15:07 | REP ---
INDICATION: WEIGHT LOSS COMPARISON: None. TECHNIQUE: Supine view of the abdomen and pelvis. FINDINGS: Bowel gas pattern is nonspecific and without obstruction or perforation. No organomegaly. No abnormal calcifications. Skeletal structures intact. IMPRESSION: Normal nonspecific abdominal radiograph. <Electronically signed by Sridhar Hendricks > 03/01/20 1035
== END ==
LOC: M ADAMS 11:29
PROVIDERS: ATTEND Physician Assistant Medical
DX: R63.4 Abnormal weight loss (principal); E66.01 Morbid (severe) obesity due to excess calories; F12.10 Cannabis abuse, uncomplicated; F10.10 Alcohol abuse, uncomplicated; R10.84 Generalized abdominal pain; R14.0 Abdominal distension (gaseous)

== ENCOUNTER → 2020-03-01 | Outpatient (REF) | payer BC ==
[2020-03-01 16:54] LABS: ALBUMIN 2.4 GM/DL (3.2-5.2); ALT/SGPT 20 U/L (12-78); BILIRUBIN,TOTAL 0.5 MG/DL (0.2-1.0); BLOOD UREA NITROGEN 16 MG/DL (7-18); CALCIUM LEVEL 8.6 MG/DL (8.5-10.1); CARBON DIOXIDE LEVEL 29 MEQ/L (21-32); CHLORIDE LEVEL 100 MEQ/L (98-107); CREATININE FOR GFR 0.41 MG/DL (0.55-1.30); FREE T4 1.92 NG/DL (0.76-1.46); GLOMERULAR FILTRATION RATE > 60.0 (>51); GLUCOSE, FASTING 91 MG/DL (70-100); POTASSIUM SERUM 3.7 MEQ/L (3.5-5.1); SODIUM LEVEL 138 MEQ/L (136-145); THYROID STIMULATING HORMONE 0.653 uIU/ML (0.358-3.740); TOTAL PROTEIN 6.4 GM/DL (6.4-8.2)
== END ==
LOC: M SFHCADAM 11:28
PROVIDERS: ATTEND Physician Assistant Medical
DX: R63.4 Abnormal weight loss (principal); E66.01 Morbid (severe) obesity due to excess calories; F12.10 Cannabis abuse, uncomplicated; F10.10 Alcohol abuse, uncomplicated

== ENCOUNTER 2020-03-09 12:00 | Inpatient (IN) | payer BC ==
[~2020-03-09] VITALS: Ht 152.4 cm; Wt 62.6 kg
--- OUTSIDE RECORDS SUMMARY | 2020-03-09 12:11 | CCD ---
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 Active 333161595 Problem Pre-op evaluation Z01.818 Active 94940672044287 4 Problem Marijuana abuse F12.10 Active 04232158 Problem Vitamin D deficiency E55.9 Active 23072723 Problem 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 Active 95706 01 Problem B12 deficiency E53.8 Active 313347088 Problem Current moderate episode of major depressive disorder without prior episode F32.1 Active 43030061 Problem Bee allergy status Z91.030 Active 392683751 Problem Neuropathy G62.9 Active 979916423 ALLERGIES No Known Allergies ENCOUNTERS from 1968 to 2019-12-16 Encounter Location Date Provider Diagnosis [facility] [id number] [place] [address] Nov, Digna Berrios IMMUNIZATIONS Vaccine Route Administration Date Status Influenza (18 yrs & older) Flublok IM Intramuscular Jan 05, 2019 Administered Pneumococcal Adult 0.5mL (Pneumovax 23) IM Intramuscular Oct Administered SOCIAL HISTORY Tobacco Use: Social History Observation Description Date Details (start date - stop date) Former Smoker Sex Assigned At : Social History Observation Description Sex Assigned At Unknown Education: Question Answer Notes Level of Education: Not finished High School GED Language: Question Answer Notes Languages spoken: Romanian Yazdanism: Question Answer Notes Yazdanism 33 None Sexual Hx: Question Answer Notes Had sex in the last 12 months (vaginal, oral, or anal)? Yes with Men only Use protection? No Drug and Alcohol Question Answer Notes Total Score: 1 Interpretation: Low level Alcohol Screening: Question Answer Notes Did you have a drink containing alcohol in the past year? Ye s Points 8 Interpretation Positive How often did you have six or more drinks on one occas ion in the past year? Weekly (3 points) How many drinks did you have on a typica l day when you were drinking in the past year? 3 or 4 (1 point) How often did you have a drink containing alcohol in t he past year? Four or more times a week (4 points) BMI Care Goal Follow-Up Question Answer Notes Above Normal BMI Follow-Up Dietary management educatio n, guidance, and counseling Tobacco Use: Question Answer Notes Are you a: former smoker Additional Findings: Tobacco User Moderate cigarette smoker (10-19 cigs/day) Smoking Cessation Information Given 06/17/2017 How long has it been since you last smoked? 1-5 years REASON FOR REFERRAL No Information VITAL SIGNS No information MEDICATIONS Medication SIG (Take, Route, Frequency, Duration) Start Date En d Date Status Clopidogrel Bisulfate 75 MG 1 tablet Orally Once a day for 90 Active Vitamin B-12 1000 MCG 1 tablet Orally Once a day Active EpiPen 2-Wu 0.3 MG/0.3ML 1 injection Injection Daily for 2 Active Sertraline HCl 100 MG 1 tablet Orally Once a day for 30 Active Aspirin Adult Low Strength 81 MG 1 tablet Orally Once a day for 90 Active Simvastatin 40 MG 1 tablet in the evening Orally Once a day for 30 Active Pantoprazole Sodium 40 MG 1 tablet Orally Once a day for 30 Active PROCEDURES No Information RESULTS No Results REASON FOR VISIT no show 12/15/2019 MEDICAL (GENERAL) HISTORY Type Description Date Medical History Aortoiliac atherosclerotic arterial occl usive disease Medical History 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 Medical History 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 Medical History tobacco abuse 25 pack/year hx,, quit 06/25 8 Medical History alcohol abuse Medical History marijuana use -twice daily Medical History anemia, chronic disease Medical History morbid obesity Medical History 07/[address] Medical History 07/12 PFT with obstructive impairment Medical History 07/04 nl LV and wall thicknes s, hyperkinectic wall motions, slightly dilated LA, nl diastolic dysfunction, borderline pulm HTN, nl IVC size Medical History Vit B12 def Medical History Neg Myriad Negative testing Medical History Neuropathy Medical History Depression Surgical History 1988 Surgical History tubal ligation 1992 Surgical History aortic endarterectomy, R com mon iliac artery endarterectomy, L common iliac artery endarterectomy, aortobiliac bypass gradt with a 14x7x7 graft, 07/12 Surgical History Hernia repair 04/07/2019 Surgical History Colonoscopy Chaya Amberly 03/18/2019 Hospitalization History childbirth 1988 Hospitalization History gangrene, aortic occlusion 2018 Goals Section No Information Health Concerns No Information MEDICAL EQUIPMENT No Information MENTAL STATUS No Information FUNCTIONAL STATUS No Information ASSESSMENTS No Information PLAN OF TREATMENT Medication Medication Name Sig Start Date Stop Date Clopidogrel Bisulfate 75 MG 1 tablet Orally Once a day for 90 Aspirin Adult Low Strength 81 MG 1 tablet Orally Once a day for 90 Simvastatin 40 MG 1 tablet in the evening Orally Once a day for 30 Sertraline HCl 100 MG 1 tablet Orally Once a day for 30 Pantoprazole Sodium 40 MG 1 tablet Orally Once a day for 30 Insurance Providers Payer Name Payer Address Payer Phone Insured Name Patient Relati onship to Insured Coverage Start Date Coverage End Date [employer] CRUZ PPO [phone] [facility] [place] [id number] JANELL BENNETT V
--- OUTSIDE RECORDS SUMMARY | 2020-03-09 12:11 | CCD ---
Author Author 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 Active 510660098 Problem Pre-op evaluation Z01.818 Active 40518601155227 4 Problem Marijuana abuse F12.10 Active 72161012 Problem Vitamin D deficiency E55.9 Active 00729805 Problem 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 Active 37603 01 Problem B12 deficiency E53.8 Active 170858920 Problem Current moderate episode of major depressive disorder without prior episode F32.1 Active 65557435 Problem Bee allergy status Z91.030 Active 585845042 Problem Neuropathy G62.9 Active 237897949 ALLERGIES No Known Allergies ENCOUNTERS from 1970 to 2020-01-28 Encounter Location Date Provider Diagnosis [facility] [address] [place] [address] Jan, Digna Berrios IMMUNIZATIONS Vaccine Route Administration Date [...] GED Language: Question Answer Notes Languages spoken: Syriac Episcopalian: Question Answer Notes Episcopalian 33 None Sexual Hx: Question Answer Notes [...] MEDICATIONS Medication SIG (Take, Route, Frequency, Duration) Notes Start Da te End Date Status Clopidogrel Bisulfate 75 MG 1 tablet Orally Once a day for 90 Active Vitamin B-12 1000 MCG 1 tablet Orally Once a day Active EpiPen 2-Wu 0.3 MG/0.3ML 1 injection Injection Daily for 2 Active Albuterol Sulfate HFA 108 (90 Base) MCG/ACT 1 puff as needed Inhalation every 4 hrs for 30 Days Dec, Active Sertraline HCl 100 MG 1 tablet [...] Information RESULTS No Results REASON FOR VISIT medication question MEDICAL (GENERAL) HISTORY Type Description Date Medical [...] disease Medical History morbid obesity Medical History 5/[address] Medical History 07/12 PFT with [...] Hernia repair 04/07/2019 Surgical History Colonoscopy Chaya Gaming 03/18/2019 Hospitalization History childbirth 1988 Hospitalization History [...] tablet Orally Once a day for 30 Albuterol Sulfate HFA 108 (90 Base) MCG/ACT 1 puff as needed Inhalation every 4 hrs for 30 Days Dec, Pantoprazole Sodium 40 MG 1 tablet Orally Once a day for 30 Next Appt Details Provider Name:Caitlin Analisa JimenezBerrios, 2020-01-29 03:30:00 PM, [address], [place], [address], Insurance Providers Payer Name Payer Address Payer Phone Insured Name Patient Relati onship to Insured Coverage Start Date Coverage End Date BCBS CORBY CRUZ PPO [phone] [facility] [employer] [place] [facility] [id number] JANELL BENNETT V
--- OUTSIDE RECORDS SUMMARY | 2020-03-09 12:11 | CCD ---
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 Active 179309985 Problem Pre-op evaluation Z01.818 Active 90743248611213 4 Problem Marijuana abuse F12.10 Active 69038151 Problem Vitamin D deficiency E55.9 Active 15679159 Problem 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 Active 99833 01 Problem B12 deficiency E53.8 Active 539672932 Problem Current moderate episode of major depressive disorder without prior episode F32.1 Active 94343422 Problem Bee allergy status Z91.030 Active 062940173 Problem Neuropathy G62.9 Active 966994400 ALLERGIES No Known Allergies ENCOUNTERS from 1968 to 2020-03-04 Encounter Location Date Provider Diagnosis [facility] [address] [place] [address] Feb, Mar clark Agustina Weight loss R63.4 ; Morbid obesity due to excess calories E66.01 ; Marijuana abuse F12.10 ; Alcohol abuse F10.10 ; Generalized abdominal pain R10.84 ; Bloating R14.0 and Hypotension, unspecified hypotension type I95.9 IMMUNIZATIONS Vaccine Route Administration Date Status Influenza (18 yrs & older) Flublok IM Intramuscular Jan 29, 2020 Administered Influenza (18 yrs & older) Flublok IM Intramuscular Jan 05, 2019 Administered Pneumococcal Adult 0.5mL (Pneumovax 23) IM Intramuscular Oct Administered SOCIAL HISTORY Tobacco Use: Social History Observation Description Date Details (start date - stop date) Former Smoker Sex Assigned At : Social History Observation Description Sex Assigned At Unknown Education: Question Answer Notes Level of Education: Not finished High School GED Audit Question Answer Notes Total Score: 8 Interpretation: Simple Advice Language: Question Answer Notes Languages spoken: Bulgarian Nondenominational: Question Answer Notes Nondenominational 33 None Sexual Hx: Question Answer Notes Had sex in the last 12 months (vaginal, oral, or anal)? Yes with Men only Use protection? No Drug and Alcohol Question Answer Notes Total Score: 2 Interpretation: Low level Alcohol Screening: Question Answer [...] REASON FOR REFERRAL No Information VITAL SIGNS Weight 122 lbs Feb, Height 60 in Feb, BMI 23.82 kg/m2 Feb, Heart Rate 60 /min Feb, Respiratory Rate 18 /min Feb, Temperature 98.7 degrees Fahrenheit Feb, Oximetry 95 Feb, Blood pressure systolic 88 mm Hg Feb, Blood pressure diastolic 48 mm Hg Feb, MEDICATIONS Medication SIG (Take, Route, Frequency, Duration) Notes Start Da te End Date Status Colace 100 MG 1 capsule as needed Orally Once a day for 30 day(s) Active EpiPen 2-Wu 0.3 MG/0.3ML 1 injection Injection Daily for 2 Active Acetaminophen 500 MG 2 capsule as needed Orally every 6 hrs PRN Active Clopidogrel Bisulfate 75 MG 1 tablet Orally Once a day for 90 Active Aspirin Adult Low Strength 81 MG 1 tablet Orally Once a day for 90 Active Sertraline HCl 100 MG 1 tablet Orally Once a day for 30 Active Simvastatin 40 MG 1 tablet in the evening Orally Once a day for 30 Active Pantoprazole Sodium 40 MG 1 tablet Orally Once a day for 30 Days Active Albuterol Sulfate HFA 108 (90 Base) MCG/ACT 1 puff as needed Inhalation every 4 hrs for 30 Days Dec, Active Vitamin B-12 1000 MCG 1 tablet Orally Once a day Active PROCEDURES No Information RESULTS Component Value Reference Range ADM ABDOMEN 1 VIEW (KUB) Reviewed date:03/01/2020 16:46:59 Interpretation: Performing Lab:[facility]], ,[place] [address] Comprehensive Metabolic Profile (CMP) Reviewed date:03/03/2020 10:30:50 Interpretation: Performing Lab:[facility] [address] [place] [address] , ,[facility] GLUCOSE, FASTING 91 70-100 BLOOD UREA NITROGEN 16 7-18 CREATININE FOR GFR 0.41 0.55-1.30 GLOMERULAR FILTRATION RATE > 60.0 >51 SODIUM LEVEL 138 136-145 POTASSIUM SERUM 3.7 3.5-5.1 CHLORIDE LEVEL 100 98-107 CARBON DIOXIDE LEVEL 29 21-32 CALCIUM LEVEL 8.6 8.5-10.1 AST/SGOT 14 7-37 ALT/SGPT 20 12-78 ALKALINE PHOSPHATASE 126 45-117 BILIRUBIN,TOTAL 0.5 0.2-1.0 TOTAL PROTEIN 6.4 6.4-8.2 ALBUMIN 2.4 3.2-5.2 ALBUMIN/GLOBULIN RATIO 0.6 1.2-2.2 FREE T4 Reviewed date:03/03/2020 10:30:50 Interpretation: Performing Lab:[facility] [address] [place] [address] , ,[facility] FREE T4 1.92 0.76-1.46 TSH Reviewed date:03/03/2020 10:30:50 Interpretation: Performing Lab:[facility] [address] [facility] [address] , ,[place] [address] THYROID STIMULATING HORMONE 0.653 0.358-3.740 REASON FOR VISIT stomach problems and losing weight MEDICAL (GENERAL) HISTORY Type Description Date Medical [...] History Hernia repair 04/07/2019 Surgical History Colonoscopy [employer] 03/18/2019 Hospitalization History childbirth 1988 Hospitalization History gangrene, aortic occlusion 2018 Goals Section No Information Health Concerns No Information MEDICAL EQUIPMENT No Information MENTAL STATUS No Information FUNCTIONAL STATUS No Information ASSESSMENTS Encounter Date Diagnosis Assessment Notes Treatment Notes Treatm ent Clinical Notes Feb, Weight loss (ICD-10 - R63.4) Her symptoms are concerning especially with the weight loss, despite some of the dietary changes she has made. She denies any symptoms assoc with her low BP but her pressure is concerningly low given her arterial disease, enc hydration. BW and XR today. Consider CT A & P, likely will also need colonoscopy. Feb, Morbid obesity due to excess calories (ICD-10 - E66.01) Feb, Marijuana abuse (ICD-10 - F12.10) Feb, Alcohol abuse (ICD-10 - F10.10) Feb, Generalized abdominal pain (ICD-10 - R10.84) Feb, Bloating (ICD-10 - R14.0) Feb, Hypotension, unspecified hypotension type (ICD-1 0 - I95.9) PLAN OF TREATMENT Treatment Notes Assessment Notes Clinical Notes Weight loss Her symptoms are concerning especially with the weight loss, despite some of the dietary changes she has made. She denies any symptoms assoc with her low BP but her pressure is concerningly low given her arterial disease, enc hydration. BW and XR today. Consider CT A & P, likely will also need colonoscopy. Treatment Notes Test Name Order Date CT ABD & Pelvis with Contrast 2020-03-04 Next Appt Details BW, XR today. Reason: Insurance Providers Payer Name Payer Address Payer Phone Insured Name Patient Relati onship to Insured Coverage Start Date Coverage End Date BCBS CORBY CRUZ PPO [phone] [facility] [place] [address] JANELL BENNETT V
--- OUTSIDE RECORDS SUMMARY | 2020-03-09 12:11 | CCD ---
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 Active 081716870 Problem Pre-op evaluation Z01.818 Active 70269986288926 4 Problem Marijuana abuse F12.10 Active 44358866 Problem Vitamin D deficiency E55.9 Active 39190581 Problem 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 Active 96544 01 Problem B12 deficiency E53.8 Active 053684077 Problem Current moderate episode of major depressive disorder without prior episode F32.1 Active 77060590 Problem Bee allergy status Z91.030 Active 052409696 Problem Neuropathy G62.9 Active 609040722 ALLERGIES No Known Allergies ENCOUNTERS from 1968 to 2020-02-01 Encounter Location Date Provider Diagnosis [facility] [address] [place] [address] Jan, Mar ia Agustina 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 ; Morbid obesity due to excess calories E66.01 ; Anemia of chronic disease D63.8 ; Current moderate episode of major depressive disorder without prior episode F32.1 ; Vitamin D deficiency E55.9 ; Iliac artery occlusion, 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 ; B12 deficiency E53.8 and Encounter for immunization Z23 IMMUNIZATIONS Vaccine Route Administration Date Status Influenza [...] GED Language: Question Answer Notes Languages spoken: Urdu Alevism: Question Answer Notes Alevism 33 None Sexual Hx: Question Answer Notes [...] FOR REFERRAL No Information VITAL SIGNS Weight 131.4 lbs Jan, Height 60 in Jan, BMI 25.66 kg/m2 Jan, Heart Rate 80 /min Jan, Respiratory Rate 18 /min Jan, Temperature 98.1 degrees Fahrenheit Jan, Oximetry 97 Jan, Blood pressure systolic 148 mm Hg Jan, Blood pressure diastolic 82 mm Hg Jan, MEDICATIONS Medication SIG (Take, Route, Frequency, Duration) Notes Start Da te End Date Status EpiPen 2-Wu 0.3 MG/0.3ML 1 injection Injection Daily for 2 Active Sertraline HCl 100 MG 1 tablet Orally Once a day for 30 Active Aspirin Adult Low Strength 81 MG 1 tablet Orally Once a day for 90 Active Pantoprazole Sodium 40 MG 1 tablet Orally Once a day for 30 Active Albuterol Sulfate HFA 108 (90 Base) MCG/ACT 1 puff as needed Inhalation every 4 hrs for 30 Days Dec, Active Vitamin B-12 1000 MCG 1 tablet Orally Once a day Active Simvastatin 40 MG 1 tablet in the evening Orally Once a day for 30 Active Clopidogrel Bisulfate 75 MG 1 tablet Orally Once a day for 90 Active PROCEDURES from 1968 to 2020-02-01 Procedure Date Ordered Result Body Site Immunization: Flublok Quadrivalent (18 years & older) 0.5mL IM (Influenza) 2020-01-29 N/A RESULTS No Results REASON FOR VISIT 6 month/labs prior MEDICAL (GENERAL) HISTORY Type Description Date Medical [...] Notes Treatment Notes Treatm ent Clinical Notes Jan, Arterial occlusive disease (ICD-10 - I70.90) Pt will cont to follow with Vascular. Jan, Morbid obesity due to excess calories (ICD-10 - E66.01) She has lost 30# this year, has changed her diet and drinking habits, monitor. Jan, Anemia of chronic disease (ICD-10 - D63.8) Jan, Current moderate episode of major depressive disorder without prior episode (ICD-10 - F32.1) Stable. Jan, Vitamin D deficiency (ICD-10 - E55.9) She has stopped her Vit D 01/14 Vit d 107. Jan, Iliac artery occlusion, bilateral (ICD-10 - I74. 5) Jan, B12 deficiency (ICD-10 - E53.8) Jan, Encounter for immunization (ICD-10 - Z23) PLAN OF TREATMENT Treatment Notes Assessment Notes Clinical Notes Arterial occlusive disease Pt will cont to follow with [facility]. Morbid obesity due to excess calories She has lost 30# this year, has changed her diet and drinking habits, monitor. Current moderate episode of major depressive disorder without prior episode Stable. Vitamin D deficiency She has stopped her Vit D 01/14 Vit d 1 . Future Test Test Name Order Date CBC with Differential [id number] Comprehensive Metabolic Profile (CMP) [id number] LIPID PANEL (CARDIAC RISK) [id number] TSH [id number] VITAMIN D 25-HYDROXY [id number] Next Appt Details 6 Months, BW before Reason: Insurance Providers Payer Name Payer Address Payer Phone Insured Name Patient Relati onship to Insured Coverage Start Date Coverage End Date BCBS CORBY CRUZ PPO [phone] [facility] [employer] [place] [id number] JANELL BENNETT V
--- OUTSIDE RECORDS SUMMARY | 2020-03-09 12:11 | CCD ---
Author Author [facility] Organization 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 Active 833289867 Problem Pre-op evaluation Z01.818 Active 41959460307299 4 Problem Marijuana abuse F12.10 Active 23546469 Problem Vitamin D deficiency E55.9 Active 72027958 Problem 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 Active 96570 01 Problem B12 deficiency E53.8 Active 799943955 Problem Current moderate episode of major depressive disorder without prior episode F32.1 Active 73185429 Problem Bee allergy status Z91.030 Active 364547908 Problem Neuropathy G62.9 Active 233150472 ALLERGIES No Known Allergies ENCOUNTERS from 1970 to 2020-02-16 Encounter Location Date Provider Diagnosis [facility] [address] [place] [address] Jan, Digna Berrios IMMUNIZATIONS Vaccine Route Administration [...] GED Language: Question Answer Notes Languages spoken: Moldovan Sabianist: Question Answer Notes Sabianist 33 None Sexual Hx: Question Answer Notes [...] Once a day for 90 Active PROCEDURES No Information RESULTS No Results REASON FOR VISIT pantoprazole 40 MEDICAL (GENERAL) HISTORY Type Description Date Medical [...] Medication Name Sig Start Date Stop Date Pantoprazole Sodium 40 MG 1 tablet Orally Once a day for 30 Days Insurance Providers Payer Name Payer Address Payer Phone Insured Name Patient Relati onship to Insured Coverage Start Date Coverage End Date BCBS CORBY CRUZ PPO [phone] [facility] [employer] [place] [id number] JANELL BENNETT V
--- OUTSIDE RECORDS SUMMARY | 2020-03-09 12:11 | CCD | Continuity of Care Document ---
Author Author Susan KENNEDY MD Organization Unknown Address [address], [address] [place] [address] Phone [phone] Care Team Providers Care Manager Drive Name Role Phone Caitlin Berrios R.P.A. AUTM [phone] AUTM Unavailable Problems Description No Information Available Social History Type Date Description Comments Sex Unknown ETOH Use 4 A Day Recreational Drug Use Current Drug User MARIJUAN A DAILY Tobacco Use Start: Unknown End: Unknown Patient is a former smoker 1 ppd for 35 years quit 2017 Smoking Status Reviewed: 11/17/19 Patient is a former smoker 1 ppd for 35 years quit 2018 Allergies, Adverse Reactions, Alerts Active Allergies Reaction Severity Comments Date NKDA 07/18/2017 [place] Facial swelling 01/14/2019 Medications Active Medications SIG Qnty Indications Ordering Provide r Date Ventolin HFA 108(90Base) mcg/Act A erosol 2 puffs qid/prn 1units Cristy Hoskins M.D. 8 Clopidogrel Bisulfate 75mg Tablets 1 by mouth every day 30tabs Cristy Hoskins M.D. 8 Aspir-[address] 1 by mouth every day 30tabs Cristy Hoskins M.D. 8 Stool Softener 100mg Capsules as needed Unknown Vitamin B12 1000mcg Tablets ER 1 by mouth every day Unknown Simvastatin 40mg Tablets once a day Unknown Acetaminophen 500mg Tablets 1-2 tab by mouth every 6 hours as needed for pain Unknown Epinephrine 0.3mg/0. 3ML Solution Auto-Inject if needed-For Bee's Unknown 00 Vitamin D3 Ultra Potency 1.25mg (87002 Ut) Tablets take 1 tab by mouth weekly Unknown 0 Sertraline HCL 100mg Tablets 1 by mouth every day Unknown Pantoprazole Sodium 40mg Tablets D R 1 by mouth every day Unknown Immunizations Description No Information Available Vital Signs Date Vital Result Comment 12/17/2019 9:39am BP Systolic 122 mmHg BP Diastolic 66 mmHg Height 61 inches 5'1" Weight 138.12 lb BMI (Body Mass Index) 26.1 kg/m2 [place] Body Weight 105 lb Weight 62.654 kg 11/17/2019 11:01am BP Systolic 126 mmHg BP Diastolic 62 mmHg Height 61 inches 5'1" Weight 135.50 lb BMI (Body Mass Index) 25.6 kg/m2 [place] Body Weight 105 lb Weight 61.463 kg Results Test Acquired Date Facility Test Result H/L Range Note Complete Blood Count 11/10/2019 [facility] [address] [place] [address] [phone] White Blood Count 6.5 10 Normal 4.0-10.0 Red Blood Count 4.21 10 Normal 4.00-5.40 Hemoglobin 13.5 g/dL Normal 12.0-15.5 Hematocrit 41.6 % Normal 36.0-47.0 Mean Corpuscular Volume 98.8 fl High 80.0-96.0 Mean Corpuscular Hemoglobin 32.1 pg Normal 27.0-33.0 Mean Corpuscular HGB Conc 32.5 g/dL Normal 32.0-36.5 Red Cell Distribution Width 13.5 % Normal 11.5-14.5 Platelet Count, Automated 205 10 Normal 150-450 Nucleated Red Blood Cell % 0.0 % Normal 0-0 Basic Metabolic Profile 11/10/2019 [facility] Lab [address] [place] [address] [phone] Glucose, Fasting 98 mg/dL Normal 70-100 Blood Urea Nitrogen 11 mg/dL Normal 7-18 Creatinine For GFR 0.31 mg/dL Low 0.55-1.30 Glomerular Filtration Rate > 60.0 Normal >51 1 Sodium Level 144 mEq/L Normal 136-145 Potassium Serum 3.5 mEq/L Normal 3.5-5.1 Chloride Level 110 mEq/L High 98-107 Carbon Dioxide Level 28 mEq/L Normal 21-32 Anion Gap 6 mEq/L Low 8-16 Calcium Level 8.6 mg/dL Normal 8.5-10.1 1 Units are mL/min/1.73 m2 Chronic Kidney Disease Staging per NKF: Stage I & II GFR >=60 Normal to Mildly Decreased Stage III GFR 30-59 Moderately Decreased Stage IV GFR 15-29 Severely Decreased Stage V GFR <15 Very Little GFR Left ESRD GFR <15 on UNDRAPED ARTIST MODEL Procedures Description No Information Available Medical Devices Description No Information Available Encounters Type Date Location Provider Dx Diagnosis Office Visit 10/19/2019 3:45p [facility] Chaya proctor MD I70.213 Athscl [place] arteries of extrm w intrmt maynor, bi legs I65.23 Occlusion and stenosis of bi lateral carotid arteries I70.8 Atherosclerosis of other art eries Office Visit 08/03/2019 9:30a [facility] GINO Hurley I71.4 Abdominal aortic aneurysm, without ruptu re I70.213 Athscl [place] arteries of ex trm w intrmt maynor, bi legs Z95.828 Presence of other vascular i mplants and grafts I65.23 Occlusion and stenosis of bi lateral carotid arteries R09.89 Oth symptoms and signs invol ving the circ and resp systems Assessments Date Code Description Provider 11/17/2019 I70.8 Atherosclerosis of other arterie s GNIO Barnes 11/17/2019 I70.213 Atherosclerosis of [place] arteri es of extremities with inter GINO Barnes 11/17/2019 I65.23 Occlusion and stenosis of bilate ral carotid arteries GINO Barnes 10/19/2019 I70.213 Atherosclerosis of [place] arteri es of extremities with inter Chaya Kennedy MD 10/19/2019 I65.23 Occlusion and stenosis of bilate ral carotid arteries Chaya Kennedy MD 10/19/2019 I70.8 Atherosclerosis of other arterie s Chaya Kennedy MD 08/03/2019 I71.4 Abdominal aortic aneurysm, witho ut rupture GINO Barnes 08/03/2019 I70.213 Atherosclerosis of [place] arteri es of extremities with inter GINO Barnes 08/03/2019 Z95.828 Presence of other vascular impla nts and grafts GINO Barnes 08/03/2019 I65.23 Occlusion and stenosis of bilate ral carotid arteries GINO Barnes 08/03/2019 R09.89 Other specified symp toms and signs involving the circulatory and respiratory systems GINO Barnes Plan of Treatment No Information Available Functional Status Description No Information Available Mental Status Description No Information Available Referrals Description No Information Available
--- OUTSIDE RECORDS SUMMARY | 2020-03-09 12:11 | CCD ---
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 Active 257080256 Problem Pre-op evaluation Z01.818 Active 39594601864364 4 Problem Marijuana abuse F12.10 Active 62621041 Problem Vitamin D deficiency E55.9 Active 05633920 Problem 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 Active 13514 01 Problem B12 deficiency E53.8 Active 238816374 Problem Current moderate episode of major depressive disorder without prior episode F32.1 Active 29296859 Problem Bee allergy status Z91.030 Active 118003140 Problem Neuropathy G62.9 Active 637226938 ALLERGIES No Known Allergies ENCOUNTERS from 1970 to 2020-03-04 Encounter Location Date Provider Diagnosis [facility] [address] [place] [address] Feb, Digna Berrios IMMUNIZATIONS Vaccine Route Administration Date [...] Advice Language: Question Answer Notes Languages spoken: Hong Konger Sikhism: Question Answer Notes Sikhism 33 None Sexual Hx: Question Answer Notes [...] a day Active PROCEDURES No Information RESULTS No Results REASON FOR VISIT call back MEDICAL (GENERAL) HISTORY Type Description Date Medical [...] Information ASSESSMENTS No Information PLAN OF TREATMENT No Information Insurance Providers Payer Name Payer Address Payer Phone Insured Name Patient Relati onship to Insured Coverage Start Date Coverage End Date RENÉE CRUZ PPO [id number] [facility] [place] [address] JANELL BENNETT V
--- OUTSIDE RECORDS SUMMARY | 2020-03-09 12:11 | CCD ---
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 Active 479998607 Problem Pre-op evaluation Z01.818 Active 98792560155313 4 Problem Marijuana abuse F12.10 Active 50919827 Problem Vitamin D deficiency E55.9 Active 46273953 Problem 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 Active 94256 01 Problem B12 deficiency E53.8 Active 395658784 Problem Current moderate episode of major depressive disorder without prior episode F32.1 Active 60471946 Problem Bee allergy status Z91.030 Active 321122146 Problem Neuropathy G62.9 Active 879266904 ALLERGIES No Known Allergies ENCOUNTERS from 1970 to 2020-01-14 Encounter Location Date Provider Diagnosis [facility] [address] [place] [address] 17 Dec, 2019 Digna Berrios IMMUNIZATIONS Vaccine Route Administration Date [...] GED Language: Question Answer Notes Languages spoken: Sami Sabianism: Question Answer Notes Sabianism 33 None Sexual Hx: Question Answer Notes [...] Information RESULTS No Results REASON FOR VISIT albuterol HFA 90MCG MEDICAL (GENERAL) HISTORY Type Description Date Medical [...] for 30 Next Appt Details Provider Name:Caitlin Berrios, 2020-01-18 09:30:00 AM, [address] [place] [address], [address], Provider Name:Caitlin Berrios 2020-01-29 03:30:00 PM, [address] [place] [address], [phone], Insurance Providers Payer Name Payer Address Payer Phone Insured Name Patient Relati onship to Insured Coverage Start Date Coverage End Date BCSAMMY CRUZ PPO [id number] [facility] [place] [id number] JANELL BENNETT V
--- OUTSIDE RECORDS SUMMARY | 2020-03-09 12:13 | CCD ---
Author Author [facility] Organization [facility] Address Unknown Phone Unavailable Care Team Providers Care Insurance Claim Representative Name Role Phone Sara Kennedy MD Unavailable Unavailable CathytrandSara MD Unavailable Unavailable CederstrandSara MD Unavailable Unavailable CathytranSara kiser MD Unavailable Unavailable CathytrandSara MD Unavailable Unavailable Cederstrand, Sara Larkin MD Unavailable Unavailable CedserafintrandSara MD Unavailable Unavailable Cederstrand, Sara Larkin MD Unavailable Unavailable CathytrandSara MD Unavailable Unavailable CathytrandSara MD Unavailable Unavailable CathytranSara kiser MD Unavailable Unavailable CederstrandSara MD Unavailable Unavailable CederstranSara kiser MD Unavailable Unavailable CathytranSara kiser MD Unavailable Unavailable Brandon Grier MD Unavailable Unavailable Brandon Grier MD Unavailable Unavailable Brandon Grier MD Unavailable Unavailable Brandon Grier MD Unavailable Unavailable Brandon Grier MD Unavailable Unavailable Brandon Grier MD Unavailable Unavailable Brandon Grier MD Unavailable Unavailable Brandon Grier MD Unavailable Unavailable Brandon Grier MD Unavailable Unavailable Brandon Grier MD Unavailable Unavailable Brandon Grier MD Unavailable Unavailable Brandon Grier MD Unavailable Unavailable Brandon Grier MD Unavailable Unavailable Dentes, Brandon Gutierrez MD Unavailable Unavailable Dentes, Brandon Gutierrez MD Unavailable Unavailable Dentes, Brandon Gutierrez MD Unavailable Unavailable Dentes, Brandon Gutierrez MD Unavailable Unavailable Dentes, Brandon Gutierrez MD Unavailable Unavailable Dentes, Brandon Gutierrez MD Unavailable Unavailable Dentes, Brandon Gutierrez MD Unavailable Unavailable Dentes, Brandon Gutierrez MD Unavailable Unavailable Dentes, Brandon Gutierrez MD Unavailable Unavailable Dentes, Brandon Gutierrez MD Unavailable Unavailable Dentes, Brandon Gutierrez MD Unavailable Unavailable Dentes, Brandon Gutierrez MD Unavailable Unavailable Dentes, Brandon Gutierrez MD Unavailable Unavailable Dentes, Brandon Gutierrez MD Unavailable Unavailable Dentes, Brandon Gutierrez MD Unavailable Unavailable Dentes, Brandon Gutierrez MD Unavailable Unavailable Dentes, Brandon Gutierrez MD Unavailable Unavailable Dentes, Brandon Gutierrez MD Unavailable Unavailable Dentes, Brandon Gutierrez MD Unavailable Unavailable Dentes, Brandon Gutierrez MD Unavailable Unavailable Dentes, Brandon Gutierrez MD Unavailable Unavailable Dentes, Brandon Gutierrez MD Unavailable Unavailable Dentes, Brandon Gutierrez MD Unavailable Unavailable Dentes, Brandon Gutierrez MD Unavailable Unavailable Dentes, Brandon Gutierrez MD Unavailable Unavailable Dentes, Brandon Gutierrez MD Unavailable Unavailable Dentes, Brandon Gutierrez MD Unavailable Unavailable Dentes, Brandon Gutierrez MD Unavailable Unavailable Dentes, Brandon Gutierrez MD Unavailable Unavailable Dentes, Brandon Gutierrez MD Unavailable Unavailable Dentes, Brandon Gutierrez MD Unavailable Unavailable Dentes, Brandon Gutierrez MD Unavailable Unavailable Dentes, Brandon Gutierrez MD Unavailable Unavailable Dentes, Brandon Gutierrez MD Unavailable Unavailable Dentes, Brandon Gutierrez MD Unavailable Unavailable Dentes, Brandon Gutierrez MD Unavailable Unavailable Dentes, Brandon Gutierrez MD Unavailable Unavailable POPILEVSKAYA, KEYANNA PA Unavailable Unavailable POPILEVSKAYA, KEYANNA PA Unavailable Unavailable POPILEVSKAYA, KEYANNA PA Unavailable Unavailable POPILEVSKAYA, KEYANNA PA Unavailable Unavailable POPILEVSKAYA, KEYANNA PA Unavailable Unavailable POPILEVSKAYA, KEYANNA PA Unavailable Unavailable POPILEVSKAYA, KEYANNA PA Unavailable Unavailable POPILEVSKAYA, KEYANNA PA Unavailable Unavailable POPILEVSKAYA, KEYANNA PA Unavailable Unavailable POPILEVSKAYA, KEYANNA PA Unavailable Unavailable POPILEVSKAYA, KEYANNA PA Unavailable Unavailable POPILEVSKAYA, KEYANNA PA Unavailable Unavailable POPILEVSKAYA, KEYANNA PA Unavailable Unavailable POPILEVSKAYA, KEYANNA PA Unavailable Unavailable POPILEVSKAYA, KEYANNA PA Unavailable Unavailable POPILEVSKAYA, KEYANNA PA Unavailable Unavailable POPILEVSKAYA, KEYANNA PA Unavailable Unavailable POPILEVSKAYA, KEYANNA PA Unavailable Unavailable POPILEVSKAYA, KEYANNA PA Unavailable Unavailable POPILEVSKAYA, KEYANNA PA Unavailable Unavailable POPILEVSKAYA, KEYANNA PA Unavailable Unavailable POPILEVSKAYA, KEYANNA PA Unavailable Unavailable POPILEVSKAYA, KEYANNA PA Unavailable Unavailable POPILEVSKAYA, KEYANNA PA Unavailable Unavailable POPILEVSKAYA, KEYANNA PA Unavailable Unavailable POPILEVSKAYA, KEYANNA PA Unavailable Unavailable POPILEVSKAYA, KEYANNA PA Unavailable Unavailable POPILEVSKAYA, KEYANNA PA Unavailable Unavailable POPILEVSKAYA, KEYANNA PA Unavailable Unavailable POPILEVSKAYA, KEYANNA PA Unavailable Unavailable POPILEVSKAYA, KEYANNA PA Unavailable Unavailable POPILEVSKAYA, KEYANNA PA Unavailable Unavailable POPILEVSKAYA, KEYANNA PA Unavailable Unavailable POPILEVSKAYA, KEYANNA PA Unavailable Unavailable POPILEVSKAYA, KEYANNA PA Unavailable Unavailable POPILEVSKAYA, KEYANNA PA Unavailable Unavailable POPILEVSKAYA, KEYANNA PA Unavailable Unavailable POPILEVSKAYA, KEYANNA PA Unavailable Unavailable POPILEVSKAYA, KEYANNA PA Unavailable Unavailable POPILEVSKAYA, KEYANNA PA Unavailable Unavailable POPILEVSKAYA, KEYANNA PA Unavailable Unavailable POPILEVSKAYA, KEYANNA PA Unavailable Unavailable POPILEVSKAYA, KEYANNA PA Unavailable Unavailable Pedroza, L Madiha RPA Unavailable Unavailable Pedroza, L Madiha RPA Unavailable Unavailable Pedroza, L Madiha RPA Unavailable Unavailable Pedroza, L Madiha RPA Unavailable Unavailable Pedroza, L Madiha RPA Unavailable Unavailable Pedroza, L Madiha RPA Unavailable Unavailable Pedroza, L Madiha RPA Unavailable Unavailable Pedroza, L Madiha RPA Unavailable Unavailable Pedroza, L Madiha RPA Unavailable Unavailable Pedroza, L Madiha RPA Unavailable Unavailable Pedroza, L Madiha RPA Unavailable Unavailable Pedroza, L Madiha RPA Unavailable Unavailable Pedroza, L Madiha RPA Unavailable Unavailable Pedroza, L Madiha RPA Unavailable Unavailable Pedroza, L Madiha RPA Unavailable Unavailable Pedroza, L Madiha RPA Unavailable Unavailable Pedroza, L Madiha RPA Unavailable Unavailable Pedroza, L Madiha RPA Unavailable Unavailable Pedroza, L Madiha RPA Unavailable Unavailable Pedroza, L Madiha RPA Unavailable Unavailable Pedroza, L Madiha RPA Unavailable Unavailable Pedroza, L Madiha RPA Unavailable Unavailable Pedroza, L Madiha RPA Unavailable Unavailable Pedroza, L Madiha RPA Unavailable Unavailable Pedroza, L Madiha RPA Unavailable Unavailable Pedroza, L Madiha RPA Unavailable Unavailable Pedroza, L Madiha RPA Unavailable Unavailable Pedroza, L Madiha RPA Unavailable Unavailable Pedroza, L Madiha RPA Unavailable Unavailable Pedroza, L Madiha RPA Unavailable Unavailable Pedroza, L Madiha RPA Unavailable Unavailable Pedroza, L Madiha RPA Unavailable Unavailable ALISSA, O FOZIA MD Unavailable Unavailable ALISSA, O FOZIA MD Unavailable Unavailable ALISSA, O FOZIA MD Unavailable Unavailable ALISSA, O FOZIA MD Unavailable Unavailable ALISSA, O FOZIA MD Unavailable Unavailable ALISSA, O FOZIA MD Unavailable Unavailable ALISSA, O FOZIA MD Unavailable Unavailable ALISSA, O OFZIA MD Unavailable Unavailable ALISSA, O FOZIA MD Unavailable Unavailable ALISSA, O FOZIA MD Unavailable Unavailable ALISSA, O FOZIA MD Unavailable Unavailable ALISSA, O FOZIA MD Unavailable Unavailable ALISSA, O FOZIA MD Unavailable Unavailable ALISSA, O FOZIA MD Unavailable Unavailable ALISSA, O FOZIA MD Unavailable Unavailable ALISSA, O FOZIA MD Unavailable Unavailable ALISSA, O FOZIA MD Unavailable Unavailable ALISSA, O FOZIA MD Unavailable Unavailable ALISSA, O FOZIA MD Unavailable Unavailable ALISSA, O FOZIA MD Unavailable Unavailable ALISSA, O FOZIA MD Unavailable Unavailable ALISSA, O FOZIA MD Unavailable Unavailable ALISSA, O FOZIA MD Unavailable Unavailable ALISSA, O FOZIA MD Unavailable Unavailable ALISSA, O FOZIA MD Unavailable Unavailable ALISSA, O FOZIA MD Unavailable Unavailable ALISSA, O FOZIA MD Unavailable Unavailable ALISSA, O FOZIA MD Unavailable Unavailable ALISSA, O FOZIA MD Unavailable Unavailable ALISSA, O FOZIA MD Unavailable Unavailable ALISSA, O FOZIA MD Unavailable Unavailable ALISSA, O FOZIA MD Unavailable Unavailable ALISSA, O FOZIA MD Unavailable Unavailable ALISSA, O FOZIA CHEN Unavailable Unavailable ALISSA, O FOZIA MD Unavailable Unavailable ALISSA, O FOZIA CHEN Unavailable Unavailable ALISSA, O FOZIA MD Unavailable Unavailable ALISSA, O FOZIA MD Unavailable Unavailable ALISSA, O FOZIA MD Unavailable Unavailable ALISSA, O FOZIA MD Unavailable Unavailable ALISSA, O FOZIA MD Unavailable Unavailable VANNESSA MARSHALL MD Unavailable Unavailable VANNESSA MARSHALL MD Unavailable Unavailable VANNESSA MARSHALL MD Unavailable Unavailable VANNESSA MARSHALL MD Unavailable Unavailable VANNESSA MARSHALL MD Unavailable Unavailable VANNESSA MARSHALL MD Unavailable Unavailable VANNESSA MARSHALL MD Unavailable Unavailable VANNESSA MARSHALL MD Unavailable Unavailable MAINI, VANNESSA MD Unavailable Unavailable MAINI, VANNESSA MD Unavailable Unavailable MAINI, VANNESSA MD Unavailable Unavailable MAINI, VANNESSA MD Unavailable Unavailable MAINI, VANNESSA MD Unavailable Unavailable MAINI, VANNESSA MD Unavailable Unavailable MAINI, VANNESSA MD Unavailable Unavailable MAINI, VANNESSA MD Unavailable Unavailable MAINI, VANNESSA MD Unavailable Unavailable MAINI, VANNESSA MD Unavailable Unavailable MAINI, VANNESSA MD Unavailable Unavailable MAINI, VANNESSA MD Unavailable Unavailable MAINI, VANNESSA MD Unavailable Unavailable MAINI, VANNESSA MD Unavailable Unavailable MAINI, VANNESSA MD Unavailable Unavailable MAINI, VANNESSA MD Unavailable Unavailable MAINI, VANNESSA MD Unavailable Unavailable MAINI, VANNESSA MD Unavailable Unavailable MAINI, VANNESSA MD Unavailable Unavailable MAINI, VANNESSA MD Unavailable Unavailable MAINI, VANNESSA MD Unavailable Unavailable MAINI, VANNESSA MD Unavailable Unavailable MAINI, VANNESSA MD Unavailable Unavailable MAINI, VANNESSA MD Unavailable Unavailable MAINI, VANNESSA MD Unavailable Unavailable MAINI, VANNESSA MD Unavailable Unavailable MAINI, VANNESSA MD Unavailable Unavailable MAINI, VANNESSA MD Unavailable Unavailable MAINI, VANNESSA MD Unavailable Unavailable MAINI, VANNESSA MD Unavailable Unavailable MAINI, VANNESSA MD Unavailable Unavailable MAINI, VANNESSA MD Unavailable Unavailable MAINI, VANNESSA MD Unavailable Unavailable MAINI, VANNESSA MD Unavailable Unavailable MAINI, VANNESSA MD Unavailable Unavailable MAINI, VANNESSA MD Unavailable Unavailable MAINI, VANNESSA MD Unavailable Unavailable MAINI, VANNESSA MD Unavailable Unavailable MAINI, VANNESSA MD Unavailable Unavailable MAINI, VANNESSA MD Unavailable Unavailable MAINI, VANNESSA MD Unavailable Unavailable MAINI, VANNESSA MD Unavailable Unavailable MAINI, VANNESSA MD Unavailable Unavailable MAINI, VANNESSA MD Unavailable Unavailable MAINI, VANNESSA MD Unavailable Unavailable MAINI, VANNESSA MD Unavailable Unavailable MAINI, VANNESSA MD Unavailable Unavailable MAINI, VANNESSA MD Unavailable Unavailable MAINI, VANNESSA MD Unavailable Unavailable MAINI, VANNESSA MD Unavailable Unavailable MAINI, VANNESSA MD Unavailable Unavailable MAINI, VANNESSA MD Unavailable Unavailable MAINI, VANNESSA MD Unavailable Unavailable MAINI, VANNESSA MD Unavailable Unavailable MAINI, VANNESSA MD Unavailable Unavailable MAINI, VANNESSA MD Unavailable Unavailable MAINI, VANNESSA MD Unavailable Unavailable MAINI, VANNESSA MD Unavailable Unavailable MAINI, VANNESSA MD Unavailable Unavailable Brandon Frias LABORATORY DEVELOPMENT TECHNICIAN, CNM Unavailable Unavailable Brandon Frias LABORATORY DEVELOPMENT TECHNICIAN, CNM Unavailable Unavailable Brandon Frias LABORATORY DEVELOPMENT TECHNICIAN, CNM Unavailable Unavailable Frias, M Ana LABORATORY DEVELOPMENT TECHNICIAN, CNM Unavailable Unavailable Frias, M Ana LABORATORY DEVELOPMENT TECHNICIAN, CNM Unavailable Unavailable Frias, M Ana LABORATORY DEVELOPMENT TECHNICIAN, CNM Unavailable Unavailable Frias, M Ana LABORATORY DEVELOPMENT TECHNICIAN, CNM Unavailable Unavailable Frias, M Ana LABORATORY DEVELOPMENT TECHNICIAN, CNM Unavailable Unavailable Frias, M Ana LABORATORY DEVELOPMENT TECHNICIAN, CNM Unavailable Unavailable Frias, M Ana LABORATORY DEVELOPMENT TECHNICIAN, CNM Unavailable Unavailable Frias, M Ana LABORATORY DEVELOPMENT TECHNICIAN, CNM Unavailable Unavailable Frias, M Ana LABORATORY DEVELOPMENT TECHNICIAN, CNM Unavailable Unavailable Frias, M Ana LABORATORY DEVELOPMENT TECHNICIAN, CNM Unavailable Unavailable Frias, M Ana LABORATORY DEVELOPMENT TECHNICIAN, CNM Unavailable Unavailable Frias, M Ana LABORATORY DEVELOPMENT TECHNICIAN, CNM Unavailable Unavailable Frias, M Ana LABORATORY DEVELOPMENT TECHNICIAN, CNM Unavailable Unavailable Frias, M Ana LABORATORY DEVELOPMENT TECHNICIAN, CNM Unavailable Unavailable Frias, M Ana LABORATORY DEVELOPMENT TECHNICIAN, CNM Unavailable Unavailable Frias, M Ana LABORATORY DEVELOPMENT TECHNICIAN, CNM Unavailable Unavailable Frias, M Ana LABORATORY DEVELOPMENT TECHNICIAN, CNM Unavailable Unavailable Frias, M Ana LABORATORY DEVELOPMENT TECHNICIAN, CNM Unavailable Unavailable Frias, M Ana LABORATORY DEVELOPMENT TECHNICIAN, CNM Unavailable Unavailable Frias, M Ana LABORATORY DEVELOPMENT TECHNICIAN, CNM Unavailable Unavailable Frias, M Ana LABORATORY DEVELOPMENT TECHNICIAN, CNM Unavailable Unavailable Frias, M Ana LABORATORY DEVELOPMENT TECHNICIAN, CNM Unavailable Unavailable Frias, M Ana LABORATORY DEVELOPMENT TECHNICIAN, CNM Unavailable Unavailable Frias, M Ana LABORATORY DEVELOPMENT TECHNICIAN, CNM Unavailable Unavailable Frias, M Ana LABORATORY DEVELOPMENT TECHNICIAN, CNM Unavailable Unavailable Frias, M Ana LABORATORY DEVELOPMENT TECHNICIAN, CNM Unavailable Unavailable Frias, M Ana LABORATORY DEVELOPMENT TECHNICIAN, CNM Unavailable Unavailable Frias, M Ana LABORATORY DEVELOPMENT TECHNICIAN, CNM Unavailable Unavailable Frias, M Ana LABORATORY DEVELOPMENT TECHNICIAN, CNM Unavailable Unavailable Frias, M Ana LABORATORY DEVELOPMENT TECHNICIAN, CNM Unavailable Unavailable SEMEL, Jinny NGO MD Unavailable Unavailable SEMEL, Jinny NGO MD Unavailable Unavailable SEMEL, Jinny NGO MD Unavailable Unavailable SEMEL, Jinny NGO MD Unavailable Unavailable SEMEL, Jinny NGO MD Unavailable Unavailable SEMEL, Jinny NGO MD Unavailable Unavailable SEMEL, Jinny NGO MD Unavailable Unavailable SEMEL, Jinny NGO MD Unavailable Unavailable SEMEL, Jinny NGO MD Unavailable Unavailable SEMEL, Jinny NGO MD Unavailable Unavailable SEMEL, Jinny NGO MD Unavailable Unavailable SEMEL, Jinny NGO MD Unavailable Unavailable SEMEL, Jinny NGO MD Unavailable Unavailable SEMEL, Jinny NGO MD Unavailable Unavailable SEMEL, Jinny NGO MD Unavailable Unavailable SEMEL, Jinny NGO MD Unavailable Unavailable SEMEL, Jinny NGO MD Unavailable Unavailable SEMEL, Jinny NGO MD Unavailable Unavailable SEMEL, Jinny NGO MD Unavailable Unavailable SEMEL, Jinny NGO MD Unavailable Unavailable SEMEL, Jinny NGO MD Unavailable Unavailable SEMEL, Jinny NGO MD Unavailable Unavailable SEMEL, Jinny NGO MD Unavailable Unavailable SEMEL, Jinny NGO MD Unavailable Unavailable SEMEL, Jinny NGO MD Unavailable Unavailable SEMEL, Jinny NGO MD Unavailable Unavailable SEMEL, Jinny NGO MD Unavailable Unavailable SEMEL, Jinny NGO MD Unavailable Unavailable SEMEL, Jinny NGO MD Unavailable Unavailable SEMEL, Jinny NGO MD Unavailable Unavailable SEMEL, Jinny NGO MD Unavailable Unavailable SEMEL, Jinny NGO MD Unavailable Unavailable SEMEL, Jinny NGO MD Unavailable Unavailable SEMEL, Jinny NGO MD Unavailable Unavailable SEMEL, Jinny NGO MD Unavailable Unavailable SEMEL, Jinny NGO MD Unavailable Unavailable SEMEL, Jinny NGO MD Unavailable Unavailable SEMEL, Jinny NGO MD Unavailable Unavailable SEMEL, Jinny NGO MD Unavailable Unavailable SEMEL, Jinny NGO MD Unavailable Unavailable SEMEL, Jinny NGO MD Unavailable Unavailable SEMEL, Jinny NGO MD Unavailable Unavailable SEMEL, Jinny NGO MD Unavailable Unavailable SEMEL, Jinny NGO MD Unavailable Unavailable SEMEL, Jinny NGO MD Unavailable Unavailable SEMEL, Jinny NGO MD Unavailable Unavailable SEMEL, Jinny NGO MD Unavailable Unavailable SEMEL, Jinny NGO MD Unavailable Unavailable SEMEL, Jinny NGO MD Unavailable Unavailable SEMEL, Jinny NGO MD Unavailable Unavailable SEMEL, Jinny NGO MD Unavailable Unavailable SEMEL, Jinny NGO MD Unavailable Unavailable SEMEL, Jinny NGO MD Unavailable Unavailable SEMEL, Jinny NGO MD Unavailable Unavailable SEMEL, Jinny NGO MD Unavailable Unavailable SEMEL, Jinny NGO MD Unavailable Unavailable SEMEL, Jinny NGO MD Unavailable Unavailable SEMEL, Jinny NGO MD Unavailable Unavailable SEMEL, Jinny NGO MD Unavailable Unavailable SEMEL, Jinny NGO MD Unavailable Unavailable SEMEL, Jinny NGO MD Unavailable Unavailable SEMEL, Jinny NGO MD Unavailable Unavailable SEMEL, Jinny NGO MD Unavailable Unavailable SEMEL, Jinny NGO MD Unavailable Unavailable SEMEL, Jinny NGO MD Unavailable Unavailable SEMEL, Jinny NGO MD Unavailable Unavailable SEMEL, Jinny NGO MD Unavailable Unavailable SEMEL, Jinny NGO MD Unavailable Unavailable SEMEL, Jinny NGO MD Unavailable Unavailable SEMEL, Jinny NGO MD Unavailable Unavailable SEMEL, Jinny NGO MD Unavailable Unavailable SEMEL, Jinny NGO MD Unavailable Unavailable SEMEL, Jinny NGO MD Unavailable Unavailable SEMEL, Jinny NGO MD Unavailable Unavailable SEMEL, Jinny NGO MD Unavailable Unavailable SEMEL, Jinny NGO MD Unavailable Unavailable SEMEL, A JENI CHEN Unavailable Unavailable SEMEL, A JENI CHEN Unavailable Unavailable SEMEL, A JENI CHNE Unavailable Unavailable SEMEL, A JENI CHEN Unavailable Unavailable SEMEL, A JENI CHEN Unavailable Unavailable SEMEL, A JENI CHEN Unavailable Unavailable SEMEL, A JENI CHEN Unavailable Unavailable SEMEL, A JENI CHEN Unavailable Unavailable SEMEL, A JENI CHEN Unavailable Unavailable SEMEL, A JENI CHEN Unavailable Unavailable SEMEL, A JENI CHEN Unavailable Unavailable SEMEL, A JENI CHEN Unavailable Unavailable SEMEL, A JENI CHEN Unavailable Unavailable SEMEL, A JENI CHEN Unavailable Unavailable SEMEL, A JENI CHEN Unavailable Unavailable SEMEL, A JENI CHEN Unavailable Unavailable SEMEL, A JENI CHEN Unavailable Unavailable SEMEL, A JENI CHEN Unavailable Unavailable SEMEL, A JENI CHEN Unavailable Unavailable SEMEL, A JENI CHEN Unavailable Unavailable SEMEL, A JENI CHEN Unavailable Unavailable SEMEL, A JENI CHEN Unavailable Unavailable SEMEL, A JENI CHEN Unavailable Unavailable SEMEL, A JENI CHEN Unavailable Unavailable SEMEL, A JENI CHEN Unavailable Unavailable SEMEL, A JENI CHEN Unavailable Unavailable SEMEL, A JENI CHEN Unavailable Unavailable SEMEL, A JENI CHEN Unavailable Unavailable SEMEL, A JENI CHEN Unavailable Unavailable SEMEL, A JENI CHEN Unavailable Unavailable SEMEL, A JENI CHEN Unavailable Unavailable SEMEL, A JENI CHEN Unavailable Unavailable SEMEL, A JENI CHEN Unavailable Unavailable SEMEL, A JENI CHEN Unavailable Unavailable SEMEL, A JENI CHEN Unavailable Unavailable SEMEL, A JENI CHEN Unavailable Unavailable SEMEL, A JENI CHEN Unavailable Unavailable SEMEL, A JENI CHEN Unavailable Unavailable SEMEL, A JENI CHEN Unavailable Unavailable SEMEL, A JENI CHEN Unavailable Unavailable SEMEL, A JENI CHEN Unavailable Unavailable SEMEL, A JENI CHEN Unavailable Unavailable SEMEL, A JENI CHEN Unavailable Unavailable SEMEL, A JENI CHEN Unavailable Unavailable Re-disclosure Warning The records that you are about to access may contain information from federally-assisted alcohol or drug abuse programs. If such information is present, then the following federally mandated warning applies: This information has been disclosed to you from records protected by federal confidentiality rules (42 CFR part 2). The federal rules prohibit you from making any further disclosure of this information unless further disclosure is expressly permitted by the written consent of the person to whom it pertains or as otherwise permitted by 42 CFR part 2. A general authorization for the release of medical or other information is NOT sufficient for this purpose. The Federal rules restrict any use of the information to criminally investigate or prosecute any alcohol or drug abuse patient.The records that you are about to access may contain highly sensitive health information, the redisclosure of which is protected by Article 27-F of the [facility] Public Health law. If you continue you may have access to information: Regarding HIV / AIDS; Provided by facilities licensed or operated by the [facility] Office of Mental Health; or Provided by the [facility] Office for People With Developmental Disabilities. If such information is present, then the following [facility] mandated warning applies: This information has been disclosed to you from confidential records which are protected by state law. State law prohibits you from making any further disclosure of this information without the specific written consent of the person to whom it pertains, or as otherwise permitted by law. Any unauthorized further disclosure in violation of state law may result in a fine or chcf sentence or both. A general authorization for the release of medical or other information is NOT sufficient authorization for further disc losure. Allergies and Adverse Reactions Type Description Substance Reaction Status Data Source(s ) Propensity to adverse reactions NICKEL nickel sulfate Active [facility] Family History Family Member Name Family Member Gender Family Member Status Date o f Status Description Data Source(s) Unknown Unknown Problem MEDENT ([facility]) Encounters Encounter Providers Location Date Indications Data Source(s ) Unknown [address] [facility] [address] [address] 03/03/2020 12:00:00 AM EST eCW1 ([facility]) Outpatient [address] [facility] [place] [address] 03/01/2020 12:00:00 AM EST [facility] Unknown [address] [facility] [address] [place] [address] 02/16/2020 12:00:00 AM EST [facility] Outpatient [address] [facility] [address] [address] 01/29/2020 12:00:00 AM EST eCW1 ([facility]) Unknown [address] [facility] [address] [address] 01/27/2020 12:00:00 AM EST eCW1 ([facility]) Unknown [address] [facility] [place] [address] 01/12/2020 12:00:00 AM EST eCW1 ([facility]) Unknown [address] [facility] [address] [place] [address] 12/15/2019 12:00:00 AM EDT eCW1 ([facility]) Outpatient Attender: Chaya Sewell/Jhonathan/Wesly/ Reindl 10/19/2019 03:45:00 PM EDT MEDENT ([facility]) Outpatient Referrer: Ana Frias LABORATORY DEVELOPMENT TECHNICIAN, CN 08/07/2019 06:38 :00 AM EDT [facility] Unknown [address] [facility] [place] [address] 08/06/2019 12:00:00 AM EDT eCW1 ([facility]) Outpatient Attender: Shannan Grier MD [id number] 08/04/2019 12:00:0 0 AM EDT [facility] Outpatient Attender: Madiha Sewell/Jhonathan/Wesly/R eindl 08/03/2019 09:30:00 AM EDT MED[facility] ([facility]) [place] [address] [facility] [place] [address] 07/02/2019 12:00:00 AM EDT eCW1 ([facility]) [facility] [place] [address] [facility] [place] [address] 06/15/2019 12:00:00 AM EDT eCW1 ([facility]) [facility] [place] [address] [facility] [place] [address] 06/10/2019 12:00:00 AM EDT eCW1 ([facility]) Outpatient Attender: Shannan Grier MD [id number] 12:00:00 AM EDT - 05/05/2019 11:45:[address] [facility] Outpatient Attender: KEYANNA CHRISTIAN [id number] 04/17/2019 12:00:00 AM EST - 04/17/2019 02:55:59 PM [facility] Inpatient Attender: Shannan Grier MDAdmi tter: VANNESSA MARSHALL MDReferrer: Shannan Grier MD [id number] 04/07/2019 09:45:00 AM EST - 04/10/2019 05:37:00 PM [facility] Patient discharged. [facility] Tiwari [address] [place] [id number] 04/02/2019 12:00:00 AM EST eCW1 ([facility]) Outpatient Attender: Shannan Grier MDReferrer: Shannan Grier MD MOB-MOB.PAT 03/31/2019 12:00:00 AM EST - 03/31/2019 01:42:47 PM [facility] Outpatient Attender: Shannan Grier MD [id number] 12:00:00 AM EST - 03/24/2019 09:22:32 AM [facility] Referrer: JENI VALDES MD 03/19/2019 08:20:01 PM EST [facility] Referrer: JENI VALDES MD 03/19/2019 08:20:01 PM EST [facility] Referrer: JENI VALDES MD 03/19/2019 08:20:01 PM EST [facility] [address] [id number] 03/09/2019 12:00:00 AM EST eCW1 ([facility]) Outpatient Attender: Shannan Grier MD [id number] 12:00:00 AM EST - 03/03/2019 09:46:25 AM EST [facility] Tiwari [address] [place] [address], [facility] [phone] 02/13/2019 12:00:00 AM EST eCW1 ([facility]) [address] [place] [address] 02/09/2019 12:00:00 AM EST eCW1 ([facility]) Outpatient Referrer: Ana Frias LABORATORY DEVELOPMENT TECHNICIAN, CNM 02/05/2019 09:08 :00 PM EST [facility] Radiology Imaging Outpatient Attender: FOZIA Sewell/Jhonathan/Wesly/Lenore indl 01/14/2019 08:00:00 AM EST MEDENT ([facility]) Immunizations Vaccine Date Status Description Data Source(s) influenza, recombinant, quadrIvalent,injectable, prese rvative free 01/29/2020 04:36:00 PM EST completed eCW1 ([facility]) influenza, recombinant, quadrIvalent,injectable, prese rvative free 01/29/2020 04:36:00 PM EST completed eCW1 ([facility]) influenza, recombinant, quadrIvalent,injectable, prese rvative free 01/29/2020 04:36:00 PM EST completed eCW1 ([facility]) influenza, recombinant, quadrIvalent,injectable, prese rvative free 01/29/2020 04:36:00 PM EST completed eCW1 ([facility]) Medications Medication Brand Name Start Date Product Form Dose Route Admi nistrative Instructions Pharmacy Instructions Status Indications Reaction Description Data Source(s) pantoprazole 40 MG Delayed Release Oral Tablet PANTOPRAZOLE SODIUM 02/16/2020 12:00:00 AM EST tablet,delayed release (DR/EC) 30 T RICARDO ONE TABLET BY MOUTH EVERY DAY TAKE ONE TABLET BY MOUTH EVERY DAY SOLD: 02/18/2020 [facility] 90 mcg/actuation 01/19/2020 12:00:00 AM EST HFA aerosol inha ler 8 INHALE ONE PUFF BY MOUTH EVERY 4 HOURS NEEDED INHALE ONE PUFF BY MOUTH EVERY 4 HOURS A S NEEDED SOLD: 03/04/2020 [facility] 90 mcg/actuation 01/19/2020 12:00:00 AM EST HFA aerosol inha ler 8 INHALE ONE PUFF BY MOUTH EVERY 4 HOURS NEEDED INHALE ONE PUFF BY MOUTH EVERY 4 HOURS A S NEEDED SOLD: 01/19/2020 [facility] Albuterol Sulfate HFA 108 (90 Base) MCG/ACT Albuterol Sulfate HFA 108 (90 Base) MCG/ACT 01/14/2020 12:00:00 AM EST 1.0 {puff_as_needed} active Albuterol Sulfate HFA 108 (90 Base) MCG/ACT [facility] Albuterol Sulfate HFA 108 (90 Base) MCG/ACT Albuterol Sulfate HFA 108 (90 Base) MCG/ACT 01/14/2020 12:00:00 AM EST 1.0 {puff_as_needed} active Albuterol Sulfate HFA 108 (90 Base) MCG/ACT [facility]CW[facility]) Albuterol Sulfate HFA 108 (90 Base) MCG/ACT Albuterol Sulfate HFA 108 (90 Base) MCG/ACT 01/14/2020 12:00:00 AM EST 1.0 {puff_as_needed} active Albuterol Sulfate HFA 108 (90 Base) MCG/ACT [facility]CW[facility]) Albuterol Sulfate HFA 108 (90 Base) MCG/ACT Albuterol Sulfate HFA 108 (90 Base) MCG/ACT 01/14/2020 12:00:00 AM EST 1.0 {puff_as_needed} active Albuterol Sulfate HFA 108 (90 Base) MCG/ACT eCW1 [facility]) Albuterol Sulfate HFA 108 (90 Base) MCG/ACT Albuterol Sulfate HFA 108 (90 Base) MCG/ACT 01/14/2020 12:00:00 AM EST 1.0 {puff_as_needed} active Albuterol Sulfate HFA 108 (90 Base) MCG/ACT eCW1 [facility]) Albuterol Sulfate HFA 108 (90 Base) MCG/ACT Albuterol Sulfate HFA 108 (90 Base) MCG/ACT 01/14/2020 12:00:00 AM EST 1.0 {puff_as_needed} active Albuterol Sulfate HFA 108 (90 Base) MCG/ACT [facility]CW[facility]) 40 mg 12/15/2019 12:00:00 AM EDT tablet 30 TAKE ONE TABLET BY MOUTH IN THE EVENING TAKE ONE TABLET BY MOUTH IN THE EVENING SOLD: 02/18/2020 [facility] 40 mg 12/15/2019 12:00:00 AM EDT tablet 30 TAKE ONE TABLET BY MOUTH IN THE EVENING TAKE ONE TABLET BY MOUTH IN THE EVENING SOLD: 12/17/2019 [facility] 40 mg 12/15/2019 12:00:00 AM EDT tablet 30 TAKE ONE TABLET BY MOUTH IN THE EVENING TAKE ONE TABLET BY MOUTH IN THE EVENING SOLD: 01/19/2020 [facility] 100 mg 10/17/2019 12:00:00 AM EDT tablet 30 TAKE ONE TABLET BY MOUTH EVERY DAY TAKE ONE TABLET BY MOUTH EVERY DAY SOLD: 01/19/2020 [facility] 100 mg 10/17/2019 12:00:00 AM EDT tablet 30 TAKE ONE TABLET BY MOUTH EVERY DAY TAKE ONE TABLET BY MOUTH EVERY DAY SOLD: 02/18/2020 [facility] 100 mg 10/17/2019 12:00:00 AM EDT tablet 30 TAKE ONE TABLET BY MOUTH EVERY DAY TAKE ONE TABLET BY MOUTH EVERY DAY SOLD: 11/21/2019 [facility] 100 mg 10/17/2019 12:00:00 AM EDT tablet 30 TAKE ONE TABLET BY MOUTH EVERY DAY TAKE ONE TABLET BY MOUTH EVERY DAY SOLD: 01/03/2020 [facility] 100 mg 10/17/2019 12:00:00 AM EDT tablet 30 TAKE ONE TABLET BY MOUTH EVERY DAY TAKE ONE TABLET BY MOUTH EVERY DAY SOLD: 10/23/2019 [facility] 1,250 mcg (50,000 unit) 09/23/2019 12:00:00 AM EDT capsule 4 TAKE ONE CAPSULE BY MOUTH ONCE WEEKLY TAKE ONE CAPSULE BY MOUTH ONCE WEEKLY SOLD: 01/19/2020 [facility] 1,250 mcg (50,000 unit) 09/23/2019 12:00:00 AM EDT capsule 4 TAKE ONE CAPSULE BY MOUTH ONCE WEEKLY TAKE ONE CAPSULE BY MOUTH ONCE WEEKLY SOLD: 09/25/2019 [facility] 1,250 mcg (50,000 unit) 09/23/2019 12:00:00 AM EDT capsule 4 TAKE ONE CAPSULE BY MOUTH ONCE WEEKLY TAKE ONE CAPSULE BY MOUTH ONCE WEEKLY SOLD: 11/21/2019 [facility] 1,250 mcg (50,000 unit) 09/23/2019 12:00:00 AM EDT capsule 4 TAKE ONE CAPSULE BY MOUTH ONCE WEEKLY TAKE ONE CAPSULE BY MOUTH ONCE WEEKLY SOLD: 12/25/2019 [facility] 1,250 mcg (50,000 unit) 09/23/2019 12:00:00 AM EDT capsule 4 TAKE ONE CAPSULE BY MOUTH ONCE WEEKLY TAKE ONE CAPSULE BY MOUTH ONCE WEEKLY SOLD: 10/23/2019 [facility] 75 mg 09/03/2019 12:00:00 AM EDT tablet 90 TAKE ONE TABLET BY MOUTH EVERY DAY TAKE ONE TABLET BY MOUTH EVERY DAY SOLD: 09/16/2019 [facility] 81 mg 09/03/2019 12:00:00 AM EDT tablet,delayed release (DR/EC) 90 TAKE ONE TABLET BY MOUTH EVERY DAY TAKE ONE TABLET BY MOUTH EVERY DAY SOLD: 09/16/2019 [facility] 81 mg 09/03/2019 12:00:00 AM EDT tablet,delayed release (DR/EC) 90 TAKE ONE TABLET BY MOUTH EVERY DAY TAKE ONE TABLET BY MOUTH EVERY DAY SOLD: 12/17/2019 [facility] 40 mg 09/03/2019 12:00:00 AM EDT tablet,delayed release (DR/EC) 30 TAKE ONE TABLET BY MOUTH EVERY DAY TAKE ONE TABLET BY MOUTH EVERY DAY SOLD: 11/13/2019 [facility] 40 mg 09/03/2019 12:00:00 AM EDT tablet,delayed release (DR/EC) 30 TAKE ONE TABLET BY MOUTH EVERY DAY TAKE ONE TABLET BY MOUTH EVERY DAY SOLD: 09/16/2019 [facility] 75 mg 09/03/2019 12:00:00 AM EDT tablet 90 TAKE ONE TABLET BY MOUTH EVERY DAY TAKE ONE TABLET BY MOUTH EVERY DAY SOLD: 12/17/2019 [facility] pantoprazole 40 MG Delayed Release Oral Tablet PANTOPRAZOLE SODIUM 09/03/2019 12:00:00 AM EDT tablet,delayed release (DR/EC) 30 T RICARDO ONE TABLET BY MOUTH EVERY DAY TAKE ONE TABLET BY MOUTH EVERY DAY SOLD: 01/19/2020 [facility] pantoprazole 40 MG Delayed Release Oral Tablet PANTOPRAZOLE SODIUM 09/03/2019 12:00:00 AM EDT tablet,delayed release (DR/EC) 30 T RICARDO ONE TABLET BY MOUTH EVERY DAY TAKE ONE TABLET BY MOUTH EVERY DAY SOLD: 12/17/2019 [facility] 40 mg 09/03/2019 12:00:00 AM EDT tablet,delayed release (DR/EC) 30 TAKE ONE TABLET BY MOUTH EVERY DAY TAKE ONE TABLET BY MOUTH EVERY DAY SOLD: 10/16/2019 [facility] 100 mg 08/06/2019 12:00:00 AM EDT tablet 30 TAKE ONE TABLET BY MOUTH EVERY DAY TAKE ONE TABLET BY MOUTH EVERY DAY SOLD: 09/16/2019 [facility] 100 mg 08/06/2019 12:00:00 AM EDT tablet 30 TAKE ONE TABLET BY MOUTH EVERY DAY TAKE ONE TABLET BY MOUTH EVERY DAY SOLD: 2019 [facility] 40 mg 06/16/2019 12:00:00 AM EDT tablet 30 TAKE ONE TABLET BY MOUTH IN THE EVENING TAKE ONE TABLET BY MOUTH IN THE EVENING SOLD: 09/25/2019 [facility] 40 mg 06/16/2019 12:00:00 AM EDT tablet 30 TAKE ONE TABLET BY MOUTH IN THE EVENING TAKE ONE TABLET BY MOUTH IN THE EVENING SOLD: 07/24/2019 [facility] 40 mg 06/16/2019 12:00:00 AM EDT tablet 30 TAKE ONE TABLET BY MOUTH IN THE EVENING TAKE ONE TABLET BY MOUTH IN THE EVENING SOLD: 11/21/2019 [facility] 40 mg 06/16/2019 12:00:00 AM EDT tablet 30 TAKE ONE TABLET BY MOUTH IN THE EVENING TAKE ONE TABLET BY MOUTH IN THE EVENING SOLD: 06/19/2019 [facility] 40 mg 06/16/2019 12:00:00 AM EDT tablet 30 TAKE ONE TABLET BY MOUTH IN THE EVENING TAKE ONE TABLET BY MOUTH IN THE EVENING SOLD: 08/24/2019 [facility] 40 mg 06/16/2019 12:00:00 AM EDT tablet 30 TAKE ONE TABLET BY MOUTH IN THE EVENING TAKE ONE TABLET BY MOUTH IN THE EVENING SOLD: 10/23/2019 [facility] BuPROPion HCl ER (Smoking Det) 150 MG BuPROPion HCl ER (Smok ing Det) 150 MG 06/15/2019 12:00:00 AM EDT active 1 tablet in the morning [facility] ([facility] 150 mg 06/15/2019 12:00:00 AM EDT tablet extended release 12 hr 30 TAKE ONE TABLET BY MOUTH EVERY MORNING TAKE ONE TABLET BY MOUTH EVERY MORNING SOLD: 06/19/2019 [facility] [id number] 0.3 ML Epinephrine 1 MG/ML Auto-Injector EPINEPHRI NE 06/10/2019 12:00:00 AM EDT auto-injector 2 INJECT NEEDED DIRE CTED INJECT NEEDED DIRECTED SOLD: 06/12/2019 [facility] 100 mg 05/22/2019 12:00:00 AM EDT tablet 30 TAKE ONE TABLET BY MOUTH EVERY DAY TAKE ONE TABLET BY MOUTH EVERY DAY SOLD: 07/10/2019 [facility] 100 mg 05/22/2019 12:00:00 AM EDT tablet 30 TAKE ONE TABLET BY MOUTH EVERY DAY TAKE ONE TABLET BY MOUTH EVERY DAY SOLD: 05/29/2019 [facility] 5-325 mg 04/17/2019 12:00:00 AM EST tablet 20 TAKE ONE TABLET BY MOUTH EVERY 6 HOURS NEEDED MAXIMUM DAILY DOSE = 4 TAKE ONE TABLET BY MOUTH EVERY 6 HOURS NEEDED MAXIMUM DAILY DOSE = 4 SOLD: 04/18/2019 [facility] 5-325 mg 04/14/2019 12:00:00 AM EST tablet 10 TAKE ONE TABLET BY MOUTH EVERY 6 HOURS NEEDED, MAXIMUM DAILY DOSE = 4 TAKE ONE TABLET BY MOUTH EVERY 6 HOURS NEEDED, MAXIMUM DAILY DOSE = 4 SOLD: 04/14/2019 [facility] 5-325 mg 04/12/2019 12:00:00 AM EST tablet 10 TAKE 1 TABLET BY MOUTH EVERY 6 HOURS NEEDED MAXIMUM DAILY DOSE = 4 TABLETS TAKE 1 TABLET BY MOUTH EVERY 6 HOURS NEEDED MAXIMUM DAILY DOSE = 4 TABLETS SOLD: 04/12/2019 [facility] Acetaminophen 325 MG / Oxycodone Hydroch loride 5 MG Oral Tablet oxyCODONE- acetaminophen (PERCOCET) 5-325 MG per tablet oxyCODONE-acetaminophen (PERCOCET) 5-325 MG per tablet 04/10/2019 12:00:00 AM EST 1 {tbl} Oral active Take 1 tablet by mouth every 6 (six) hours as needed Max Daily Amount: 4 tablets [facility] 5-325 mg 04/10/2019 12:00:00 AM EST tablet 5 TAKE 1 TABLET BY MOUTH EVERY 6 HOURS NEEDED FOR PAIN MAXIMUM DAILY DOSE = 4 TABLETS TAKE 1 TABLET BY MOUTH EVERY 6 HOURS NEEDED FOR PAIN MAXIMUM DAILY DOSE = 4 TABLETS SOLD: 04/11/2019 [facility] morphine FISH BIN TENDER 1 mg/mL 04/09/2019 02:00:00 PM EST Intraven ous aborted Intravenous, Continuous, Starting Gosia 04/09/19 at 1400, For 122 hours, Post-op [facility] Medication administered onsite Magnesium Hydroxide 80 MG/ML Oral Suspen pb magnesium hydroxide (MILK OF MAGNESIA) 400 MG/5ML suspension 30 mL magnesium hydroxide (MILK OF MAGNESIA) 4 00 MG/5ML suspension 30 mL 04/09/2019 07:31:23 AM EST 30 mL Oral active 30 mL, Oral, Daily PRN, constipation, Starting Gosia 04/09/19 at 0731
Give one dose this am
[facility] Medication administered onsite Docusate Sodium 100 MG Oral Capsule docusate sodium (C OLACE) capsule 100 mg docusate sodium (COLACE) capsule 100 mg 04/08/2019 09:00:00 PM EST 100 mg Oral active 100 mg, Oral, 2 times daily, First dose on Sat04/08/19 at 2100
hold for loose stools
[facility] Medication administered onsite clopidogrel 75 MG Oral Tablet clopidogrel (PLAVIX) tab let 75 mg clopidogrel (PLAVIX) tablet 75 mg 04/08/2019 05:00:00 PM EST 75 mg Oral active 75 mg, Oral, Daily, First dose on Sat04/08/19 at 1700 [facility] Medication administered onsite Simvastatin 40 MG Oral Tablet simvastatin (ZOCOR) tabl et 40 mg simvastatin (ZOCOR) tablet 40 mg 04/08/2019 05:00:00 PM EST 40 mg Oral active 40 mg, Oral, Daily, First dose on Sat04/08/19 at 1700 [facility] Medication administered onsite Aspirin 81 MG Delayed Release Oral Tablet aspirin EC t ablet 81 mg aspirin EC tablet 81 mg 04/08/2019 05:00:00 PM EST 81 mg Oral activ e 81 mg, Oral, Daily, First dose on Sat04/08/19 at 1700 [facility] Medication administered onsite Sertraline 100 MG Oral Tablet sertraline (ZOLOFT) tabl et 100 mg sertraline (ZOLOFT) tablet 100 mg 04/08/2019 05:00:00 PM EST 100 mg Oral active 100 mg, Oral, Daily, First dose on Sat04/08/19 at 1700 [facility] Medication administered onsite pantoprazole 40 MG Delayed Release Oral Tablet pantoprazole (PROTONIX) EC tablet 40 mg pantoprazole (PROTONIX) EC tablet 40 mg 04/08/2019 05:00:[address] 40 mg Oral active Gastroesophageal Reflux Diseas e 40 mg, Oral, Daily, Indications: Gastroesophageal Reflux Disease, First dose on Sat04/08/19 at 1700 [facility] Gastroesophageal Reflux Disease Medication administered onsite morphine FISH BIN TENDER 1 mg/mL 04/08/2019 12:00:00 AM EST Intraven ous aborted Intravenous, Continuous, Starting Sat04/08/19 at 0000, For 161 hours, Post-op [facility] Medication administered onsite normal saline flush 0.9 % injection 3 mL [id number] 04/07/2019 10:00:00 PM EST 3 mL Intravenous active 3 mL , Intravenous, PROTOCOL, First dose on Sat04/07/19 at 2200, Post-op
flush per protocol, D/C Main IV fluid if appropriate
[facility] Medication administered onsite morphine 1 mg/ml FISH BIN TENDER bolus 4 mg [id number] 04/07/2019 06:00:[address] 4 mg Intravenous completed 4 mg, Intrave nous, Once, Sat04/07/19 at 1800, For 1 dose [facility] Medication administered onsite Acetaminophen 325 MG Oral Tablet acetaminophen (TYLENO L) 325 MG tablet 975 mg acetaminophen (TYLENOL) 325 MG tablet 975 mg 04/07/2019 04:00:00 PM EST 975 mg Oral completed 975 mg, Or al, Once, Sat04/07/19 at 1600, For 1 dose, PACU (only)
"Maximum dose of acetaminophen is 4,000 mg from all sources in 24 hours."
[facility] Medication administered onsite morphine FISH BIN TENDER 1 mg/mL 04/07/2019 04:00:00 PM EST Intraven ous aborted Intravenous, Continuous, Starting Sat04/07/19 at 1600, For 7 days, Post-op [facility] Medication administered onsite cefazolin (ANCEF) injection 2 g 04/07/2019 04:00:00 PM EST 2 g Intravenous completed Perioperative Pharmacoprophylaxis 2 g, Intravenous, Administer over 6 Minutes, Every 8 hours (relative), First dose on Sat04/07/19 at 1600, For 48 hours
RN may administer IV push or infuse this medication through syringe adapter set ref [phone]. Flush line after use
[facility] Perioperative Pharmacoprophylaxis Medication administered onsite dextrose 5 % and sodium chloride 0.45 % infusion 8899-5544-0 0 04/07/2019 04:00:00 PM EST Intravenous active at 30 mL/hr, Intravenous, Continuous, Starting Sat04/07/19 at 1600, Post-op
Hep lock with good PO
[facility] Medication administered onsite Acetaminophen 325 MG Oral Tablet acetaminophen (TYLENO L) 325 MG tablet 650 mg acetaminophen (TYLENOL) 325 MG tablet 650 mg 04/07/2019 04:00:00 PM EST 650 mg Oral active 650 mg, Or al, Every 6 hours (relative), First dose on Sat04/07/19 at 1600, Post-op
"Maximum dose of acetaminophen is 4,000 mg from all sources in 24 hours."
[facility] Medication administered onsite heparin (porcine) injection 5,000 Units [id number] 04/07/19 04:00:00 PM EST 5000 U Subcutaneous active 5,000 Units , Subcutaneous, Every 8 hours (scheduled), First dose on Sat04/07/19 at 1600, Post-op
If platelet count is less than 100,000 or hematocrit is less than 25, or if there is a 5 point decrea se in hematocrit, do not give the dose and call physician/designee.
[facility] Medication administered onsite Acetaminophen 325 MG / Oxycodone Hydroch loride 5 MG Oral Tablet oxyCODONE- acetaminophen (PERCOCET) 5-325 MG 1-2 tablet oxyCODONE-acetaminophen (PERCOCET) 5-325 MG 1-2 tablet 04/07/2019 03:36:50 PM EST Oral active 1-2 tablet, Oral, Every 4 hours PRN, moderate pain (4-6), severe pain (7-10), Starting Sat04/07/19 at 1536, For 7 days, Post-op [facility] Medication administered onsite ondansetron (ZOFRAN) injection 4 mg [id number] 04/07/2019 03:36:5 0 PM EST 4 mg Intravenous active 4 mg, In travenous, Every 6 hours PRN, nausea, vomiting, Starting Sat04/07/19 at 1536, Post-op [facility] Medication administered onsite Albuterol 0.83 MG/ML Inhalant Solution a lbuterol (PROVENTIL) nebulizer solution 2.5 mg albuterol (PROVENTIL) nebulizer solution 2.5 mg 2019 03:36:49 PM EST 2.5 mg active 2.5 mg, Nebulization, RT every 4 hours as needed, wheezing, shortness of breath, Starting Sat04/07/19 at 1536, Post-op [facility] Medication administered onsite 2 ML Midazolam 1 MG/ML Injection midazolam (VERSED) in jection 1 mg midazolam (VERSED) injection 1 mg 04/07/2019 02:47:55 PM EST 1 mg Intraveno us completed 1 mg, Intravenous, E very 15 min PRN, anxiety, Starting 04/07/19 at 1447, For 2 doses, PACU (only) [facility] Medication administered onsite HYDROmorphone (DILAUDID) injection 0.5 mg [id number] 04/07/2019 02:47:55 PM EST 0.5 mg Intravenous completed 0. 5 mg, Intravenous, Every 5 min PRN, severe pain (7-10), Starting Sat04/07/19 at 1447, For 2 doses, PACU (only) [facility] Medication administered onsite HYDROmorphone (DILAUDID) injection 0.5 mg [id number] 04/07/2019 01:20:29 PM EST 0.5 mg Intravenous aborted 0.5 mg, Intravenous, Every 5 min PRN, severe pain (7-10), max 4 doses, Starting Sat04/07/19 at 1320, For 4 hours, PACU (only) [facility] Medication administered onsite fentaNYL Citrate (PF) (SUBLIMAZE) injection 25 mcg [id number] 04/07/2019 01:20:29 PM EST 25 ug Intravenous completed 25 mcg, Intravenous, Every 5 min PRN, moderate pain (4 to 6), max 8 doses, Starting Sat04/07/19 at 1320, For 2 hours, PACU (only) [facility] Medication administered onsite heparin (porcine) injection 5,000 Units [id number] 04/07/19 11:00:00 AM EST 5000 U Subcutaneous completed 5,000 Uni ts, Subcutaneous, front office spec to Krupa.Ferdinand German 04/07/19 at 1100, For 1 dose, Pre-op
If platelet count is less than 100,000 or hematocrit is less than 30, or there is a 5 point decrease in hematocrit, do not give the dose and call physician/designee
[facility] Medication administered onsite 40 mg 04/02/2019 12:00:00 AM EST tablet,delayed release (DR/EC) 30 TAKE ONE TABLET BY MOUTH EVERY DAY TAKE ONE TABLET BY MOUTH EVERY DAY SOLD: 05/16/2019 [facility] 40 mg 04/02/2019 12:00:00 AM EST tablet,delayed release (DR/EC) 30 TAKE ONE TABLET BY MOUTH EVERY DAY TAKE ONE TABLET BY MOUTH EVERY DAY SOLD: 04/06/2019 [facility] pantoprazole 40 MG Delayed Release Oral Tablet Pantopr azole Sodium 40 MG Pantoprazole Sodium 40 MG 04/02/2019 12:00:00 AM EST 1.0 {tablet} active Pantoprazole Sodium 40 MG [facility]CW1 ( [facility] 40 mg 04/02/2019 12:00:00 AM EST tablet,delayed release (DR/EC) 30 TAKE ONE TABLET BY MOUTH EVERY DAY TAKE ONE TABLET BY MOUTH EVERY DAY SOLD: 2019 [facility] 40 mg 04/02/2019 12:00:00 AM EST tablet,delayed release (DR/EC) 30 TAKE ONE TABLET BY MOUTH EVERY DAY TAKE ONE TABLET BY MOUTH EVERY DAY SOLD: 07/10/2019 [facility] 40 mg 04/02/2019 12:00:00 AM EST tablet,delayed release (DR/EC) 30 TAKE ONE TABLET BY MOUTH EVERY DAY TAKE ONE TABLET BY MOUTH EVERY DAY SOLD: 06/12/2019 [facility] pantoprazole 40 MG Delayed Release Oral Tablet Pantopr azole Sodium 40 MG Pantoprazole Sodium 40 MG 04/02/2019 12:00:00 AM EST active 1 tablet eCW1 ([facility]) pantoprazole 40 MG Delayed Release Oral Tablet Pantopr azole Sodium 40 MG Pantoprazole Sodium 40 MG 04/02/2019 12:00:00 AM EST active 1 tablet eCW1 ([facility]) pantoprazole 40 MG Delayed Release Oral Tablet Pantopr azole Sodium 40 MG Pantoprazole Sodium 40 MG 04/02/2019 12:00:00 AM EST active 1 tablet eCW1 ([facility]) 20 mg 03/18/2019 12:00:00 AM EST capsule,delayed release (DR/EC) 30 TAKE ONE CAPSULE BY MOUTH EVERY DAY FOR 1 MONTH THEN NEEDED TAKE ONE CAPSULE BY MOUTH EVERY DAY FOR 1 MONTH THEN NEEDED SOLD: 03/20/2019 [facility] 17.5-3.13-1.6 gram 03/15/2019 12:00:00 AM EST recon soln 354 USE DIRECTED BY [facility] USE DIRECTED BY [facility] SOLD: 03/16/2019 [facility] 1,250 mcg (50,000 unit) 03/10/2019 12:00:00 AM EST capsule 4 TAKE ONE CAPSULE BY MOUTH ONCE WEEKLY TAKE ONE CAPSULE BY MOUTH ONCE WEEKLY SOLD: 08/24/2019 [facility] 1,250 mcg (50,000 unit) 03/10/2019 12:00:00 AM EST capsule 4 TAKE ONE CAPSULE BY MOUTH ONCE WEEKLY TAKE ONE CAPSULE BY MOUTH ONCE WEEKLY SOLD: 04/18/2019 [facility] 1,250 mcg (50,000 unit) 03/10/2019 12:00:00 AM EST capsule 4 TAKE ONE CAPSULE BY MOUTH ONCE WEEKLY TAKE ONE CAPSULE BY MOUTH ONCE WEEKLY SOLD: 05/22/2019 [facility] 100 mg 03/10/2019 12:00:00 AM EST tablet 30 TAKE ONE TABLET BY MOUTH EVERY DAY TAKE ONE TABLET BY MOUTH EVERY DAY SOLD: 03/16/2019 [facility] 100 mg 03/10/2019 12:00:00 AM EST tablet 30 TAKE ONE TABLET BY MOUTH EVERY DAY TAKE ONE TABLET BY MOUTH EVERY DAY SOLD: 04/23/2019 [facility] 1,250 mcg (50,000 unit) 03/10/2019 12:00:00 AM EST capsule 4 TAKE ONE CAPSULE BY MOUTH ONCE WEEKLY TAKE ONE CAPSULE BY MOUTH ONCE WEEKLY SOLD: 03/16/2019 [facility] 1,250 mcg (50,000 unit) 03/10/2019 12:00:00 AM EST capsule 4 TAKE ONE CAPSULE BY MOUTH ONCE WEEKLY TAKE ONE CAPSULE BY MOUTH ONCE WEEKLY SOLD: 06/19/2019 [facility] 1,250 mcg (50,000 unit) 03/10/2019 12:00:00 AM EST capsule 4 TAKE ONE CAPSULE BY MOUTH ONCE WEEKLY TAKE ONE CAPSULE BY MOUTH ONCE WEEKLY SOLD: 07/24/2019 [facility] Drisdol 1.25 MG (45923 UT) UNK 03/09/2019 12:00:00 AM EST active 1 capsule eCW1 ([facility]) Ergocalciferol 87502 UNT Oral Capsule [Drisdol] Drisdo l 1.25 MG (57123 UT) Drisdol 1.25 MG (68866 UT) 03/09/2019 12:00:00 AM EST suspended 1 capsule eCW1 ([facility]) Ergocalciferol [id number] UNT Oral Capsule [Drisdol] Drisdo l 1.25 MG (06527 UT) Drisdol 1.25 MG (91616 UT) 03/09/2019 12:00:00 AM EST suspended 1 capsule eCW1 ([facility]) 81 mg 02/14/2019 12:00:00 AM EST tablet,delayed release (DR/EC) 90 TAKE ONE TABLET BY MOUTH EVERY DAY TAKE ONE TABLET BY MOUTH EVERY DAY SOLD: 06/12/2019 [facility] 75 mg 02/14/2019 12:00:00 AM EST tablet 90 TAKE ONE TABLET BY MOUTH EVERY DAY TAKE ONE TABLET BY MOUTH EVERY DAY SOLD: 06/12/2019 [facility] 75 mg 02/14/2019 12:00:00 AM EST tablet 90 TAKE ONE TABLET BY MOUTH EVERY DAY TAKE ONE TABLET BY MOUTH EVERY DAY SOLD: 02/15/2019 [facility] 81 mg 02/14/2019 12:00:00 AM EST tablet,delayed release (DR/EC) 90 TAKE ONE TABLET BY MOUTH EVERY DAY TAKE ONE TABLET BY MOUTH EVERY DAY SOLD: 02/15/2019 [facility] clopidogrel 75 MG Oral Tablet clopidogrel (PLAVIX) 75 MG tablet clopidogrel (PLAVIX) 75 MG tablet 02/13/2019 12:00:00 AM EST 75 mg Oral active Take 75 mg by mouth daily [facility] Aspirin 81 MG Delayed Release Oral Table t SM ASPIRIN ADULT LOW STRENGTH 81 MG EC tablet SM ASPIRIN ADULT LOW STRENGTH 81 MG EC tablet 02/14/20 12:00:00 AM EST aborted [facility] Simvastatin 40 MG Oral Tablet simvastatin (ZOCOR) 40 M G tablet simvastatin (ZOCOR) 40 MG tablet 02/13/2019 12:00:00 AM EST 40 mg Oral active Take 40 mg by mouth daily [facility] 90 mcg/actuation 12/26/2018 12:00:00 AM EDT HFA aerosol inha ler 8 INHALE TWO PUFFS BY MOUTH EVERY 6 HOURS NEEDED INHALE TWO PUFFS BY MOUTH EVERY 6 HOURS NEEDED SOLD: 06/12/2019 [facility] 90 mcg/actuation 12/26/2018 12:00:00 AM EDT HFA aerosol inha ler 8 INHALE TWO PUFFS BY MOUTH EVERY 6 HOURS NEEDED INHALE TWO PUFFS BY MOUTH EVERY 6 HOURS NEEDED SOLD: 10/16/2019 [facility] 90 mcg/actuation 12/26/2018 12:00:00 AM EDT HFA aerosol inha ler 8 INHALE TWO PUFFS BY MOUTH EVERY 6 HOURS NEEDED INHALE TWO PUFFS BY MOUTH EVERY 6 HOURS NEEDED SOLD: 03/16/2019 [facility] 90 mcg/actuation 12/26/2018 12:00:00 AM EDT HFA aerosol inha ler 8 INHALE TWO PUFFS BY MOUTH EVERY 6 HOURS NEEDED INHALE TWO PUFFS BY MOUTH EVERY 6 HOURS NEEDED SOLD: 08/24/2019 [facility] 90 mcg/actuation 12/26/2018 12:00:00 AM EDT HFA aerosol inha ler 8 INHALE TWO PUFFS BY MOUTH EVERY 6 HOURS NEEDED INHALE TWO PUFFS BY MOUTH EVERY 6 HOURS NEEDED SOLD: 07/02/2019 [facility] 90 mcg/actuation 12/26/2018 12:00:00 AM EDT HFA aerosol inha ler 8 INHALE TWO PUFFS BY MOUTH EVERY 6 HOURS NEEDED INHALE TWO PUFFS BY MOUTH EVERY 6 HOURS NEEDED SOLD: 07/24/2019 [facility] 90 mcg/actuation 12/26/2018 12:00:00 AM EDT HFA aerosol inha ler 8 INHALE TWO PUFFS BY MOUTH EVERY 6 HOURS NEEDED INHALE TWO PUFFS BY MOUTH EVERY 6 HOURS NEEDED SOLD: 11/13/2019 [facility] 90 mcg/actuation 12/26/2018 12:00:00 AM EDT HFA aerosol inha ler 8 INHALE TWO PUFFS BY MOUTH EVERY 6 HOURS NEEDED INHALE TWO PUFFS BY MOUTH EVERY 6 HOURS NEEDED SOLD: 09/16/2019 [facility] 90 mcg/actuation 12/26/2018 12:00:00 AM EDT HFA aerosol inha ler 8 INHALE TWO PUFFS BY MOUTH EVERY 6 HOURS NEEDED INHALE TWO PUFFS BY MOUTH EVERY 6 HOURS NEEDED SOLD: 12/17/2019 [facility] Simvastatin 40 MG Oral Tablet SIMVASTATIN 12/15/2018 12:00:00 AM EDT tablet 30 TAKE ONE TABLET BY MOUTH IN THE EVENING TAKE ONE TABLE T BY MOUTH IN THE EVENING SOLD: 04/23/2019 [facility] 40 mg 12/15/2018 12:00:00 AM EDT tablet 30 TAKE ONE TABLET BY MOUTH IN THE EVENING TAKE ONE TABLET BY MOUTH IN THE EVENING SOLD: 05/22/2019 [facility] Simvastatin 40 MG Oral Tablet SIMVASTATIN 12/15/2018 12:00:00 AM EDT tablet 30 TAKE ONE TABLET BY MOUTH IN THE EVENING TAKE ONE TABLE T BY MOUTH IN THE EVENING SOLD: 02/15/2019 [facility] Simvastatin 40 MG Oral Tablet SIMVASTATIN 12/15/2018 12:00:00 AM EDT tablet 30 TAKE ONE TABLET BY MOUTH IN THE EVENING TAKE ONE TABLE T BY MOUTH IN THE EVENING SOLD: 01/16/2019 [facility] Simvastatin 40 MG Oral Tablet SIMVASTATIN 12/15/2018 12:00:00 AM EDT tablet 30 TAKE ONE TABLET BY MOUTH IN THE EVENING TAKE ONE TABLE T BY MOUTH IN THE EVENING SOLD: 03/16/2019 [facility] 100 mg 10/31/2018 12:00:00 AM EDT tablet 45 TAKE 1 AND 1/2 TABLETS BY MOUTH DAILY TAKE 1 AND 1/2 TABLETS BY MOUTH DAILY SOLD: 01/16/2019 [facility] 100 mg 10/17/2018 12:00:00 AM EDT capsule 90 TAKE ONE CAPSULE BY MOUTH THREE TIMES A DAY TAKE ONE CAPSULE BY MOUTH THREE TIMES A DAY SOLD: 01/16/2019 [facility] Insurance Providers Payer name Policy type / Coverage type Policy ID Covered republican ID Covered republican's relationship to cunha Policy Cunha Plan Information [facility]/307 [id number] HU2 [id number] [facility] 302/307 [id number] 2 [id number] [employer] BCBS B [id number] P VYS [id number] [employer]BS [id number] Spo VYS [employer] BCBS [id number] [facility] PPO POS [id number] ANSI-Commercial [id number] ANSI-Commercial [id number] ANSI-Commercial [id number] ANSI-Commercial [id number] ANSI-Commercial [id number] BCBS [place] PPO 302/307 [id number] HU2 [id number] ANSI-Commercial [id number] ANSI-Commercial [id number] ANSI-Commercial [id number] ANSI-Commercial [id number] ANSI-Commercial [id number] [employer]CELLUS BCBS B [id number] P VYS [id number] BCBS/[employer] Commercial [id number] Family Dependent [id number] BCBS/[employer] [id number] Family Dependent [id number] BCBS/[employer] [id number] Family Dependent [id number] BCBS/[employer] [id number] Family Dependent [id number] BCBS/[employer] [id number] Family Dependent [id number] [employer] BCBS P UNAVAILABLE P UNAV AILABLE Problems, Conditions, and Diagnoses Code Display Name Description Problem Type Effective Dates Data Source(s) K21.9 GERD (gastroesophageal reflux disease) G ERD (gastroesophageal reflux disease) [id number] 04/10/2019 12:00:00 AM [facility] F32.9 Depression Depression [id number] 04/10/2019 12:00:00 AM [facility] I73.9 PVD (peripheral vascular disease) PVD (periphera l vascular disease) [id number] 04/10/2019 12:00:00 AM [facility] Z01.818 [id number] Pre-op evaluation Problem 04/02/2019 12 :00:00 AM [place] [address] ([facility]) Z01.818 [id number] Pre-op evaluation Problem 04/02/2019 12 :00:00 AM [place] [address] ([facility]) K43.2 Incisional hernia, without obstruction o r gangrene Incisional hernia, without obstruction or gangrene [id number] 03/24/2019 12:00:[address] [facility] E55.9 [id number] Vitamin D deficiency Problem 03/09/2019 12:0 0:00 AM EST [facility] ([facility]) E55.9 [id number] Vitamin D deficiency Problem 03/09/2019 12:0 0:00 AM EST eCW1 ([facility]) Z09 Encounter for follow-up exam ination after completed treatment for conditions other than malignant neoplasm Encounter for follow-up examination afte Diagnosis 05/05/2019 11:07:[address] [facility] K43.2 Incisional hernia without obstruction or gangrene Incisional hernia without obstruction or Diagnosis 04/17/2019 01:58:05 PM EST [facility] K63.9 Disease of intestine, unspecified Disease of int estine, unspecified Diagnosis 03/03/2019 09:20:[address] [facility] Surgeries/Procedures Procedure Description Date Indications Data Source(s) Immunization: Flublok Quadrivalent (18 years & older) 0.5mL IM (Influenza) 01/29/2020 12:00:00 AM EST eC1 ([facility]) PHYSICIAN TELEPHONE EVALUATION 5-10 MIN 06/15/2019 12: 00:00 AM EDT eCW1 ([facility]) BLOOD COUNT COMPLETE AUTOMATED CBC Timed 04/10/2019 3:42 A M EST 04/10/2019 08:42:00 AM EST [facility] BASIC METABOLIC PANEL CALCIUM TOTAL BASIC METABOLIC PANEL Timed 04/10/2019 3:42 AM EST 04/10/2019 08:42:[address] [facility] BASIC METABOLIC PANEL CALCIUM TOTAL BASIC METABOLIC PANEL Timed 04/09/2019 4:04 AM EST 04/09/2019 09:04:[address] [facility] BLOOD COUNT COMPLETE AUTOMATED CBC Timed 04/08/2019 4:02 A M EST 04/08/2019 09:02:00 AM EST [facility] BASIC METABOLIC PANEL CALCIUM TOTAL BASIC METABOLIC PANEL Timed 04/08/2019 4:02 AM EST 04/08/2019 09:02:[address] [facility] CUL BACT XCPT URINE BLOOD/STOOL AEROBIC ISOL WOUND CULTURE Ro utine 04/07/2019 12:23 PM EST 04/07/2019 05:23:[address] [facility] CULTURE BACTERIAL ANY SOURCE ANAEROBIC ISO&ID ANAEROBIC CULTURE Timed 04/07/2019 12:23 PM EST 04/07/2019 05:23:00 PM EST [facility] REPAIR FIRST ABDOMINAL WALL HERNIA REPAIR, HERNIA, VE NTRAL, SPIGELIAN, OR INCISIONAL 04/07/2019 12:03 PM EST Incisional hernia, without obstruction or gangrene 12/2019 05:03:00 PM EST - 04/07/2019 06:52:00 PM EST Incisional hernia, without obstruction or gangrene [facility] Incisional hernia, without obstruction o r gangrene POCT I-STAT BETA HCG POCT I-STAT BETA HCG Routine 04/07/2019 10:56 AM EST 04/07/2019 03:56:[address] [facility] POCT VENOUS BLOOD GAS W LETTY POCT VENOUS BLOOD GAS W FLY tovar 04/07/2019 10:51 AM EST 04/07/2019 03:51:[address] [facility] BLOOD TYPING ABO TYPE AND SCREEN Routine 04/07/2019 10:43 AM EST 04/07/2019 03:43:00 PM EST [facility] ECG ROUTINE ECG W/LEAST 12 LDS TRCG ONLY W/O I&R ECG 12-LEAD Routine 04/07/2019 10:42 AM EST 04/07/2019 03:42:09 PM EST [facility] Results ID Date Data Source TSH 03/01/2020 12:00:00 AM EST W1 ([facility]) Name Value Range Interpretation Code Description Data Amparo rce(s) Supporting Document(s) 0.653 0.358-3.740 THYROID STIMULATING HORM ONE eCW1 ([facility]) ID Date Data Source FREE T4 03/01/2020 12:00:00 AM EST eCW1 ([facility]) Name Value Range Interpretation Code Description Data Amparo rce(s) Supporting Document(s) 1.92 0.76-1.46 FREE T4 [facility] ([facility]) ID Date Data Source Comprehensive Metabolic Profile (CMP) 03/01/2020 12:00:00 AM EST eCW1 ([facility]) Name Value Range Interpretation Code Description Data Amparo rce(s) Supporting Document(s) 91 70-100 GLUCOSE, FASTING eCW1 ([facility]) 0.41 0.55-1.30 CREATININE FOR GFR eCW1 ([facility]) 16 7-18 BLOOD UREA NITROGEN eCW1 ([facility]) 100 98-107 CHLORIDE LEVEL eCW1 ([facility]) > 60.0 >51 GLOMERULAR FILTRATION RATE eCW 1 ([facility]) 3.7 3.5-5.1 POTASSIUM SERUM eCW1 ([facility]) 138 136-145 SODIUM LEVEL eCW1 (Count includes the [facility]) 14 7-37 AST/SGOT eCW1 ([facility]) 29 21-32 CARBON DIOXIDE LEVEL eCW1 ([facility]) 8.6 8.5-10.1 CALCIUM LEVEL eCW1 ([facility]) 20 12-78 ALT/SGPT eCW1 ([facility]) 2.4 3.2-5.2 ALBUMIN eCW1 ([facility]) 6.4 6.4-8.2 TOTAL PROTEIN eCW1 ([facility]) 0.6 1.2-2.2 ALBUMIN/GLOBULIN RATIO eCW1 ([facility]) 0.5 0.2-1.0 BILIRUBIN,TOTAL eCW1 ([facility]) 126 45-117 ALKALINE PHOSPHATASE eCW1 ([facility]) ID Date Data Source ADM ABDOMEN 1 VIEW (KUB) 03/01/2020 12:00:00 AM EST eCW1 ([facility]) Name Value Range Interpretation Code Description Data Amparo rce(s) Supporting Document(s) ADM ABDOMEN 1 VIEW (KUB) eCW1 ([facility]) ID Date Data Source [id number] 11/10/2019 08:55:00 AM EDT [facility] ([facility] ) Name Value Range Interpretation Code Description Data Amparo rce(s) Supporting Document(s) Blood Urea Nitrogen 11 mg/dL 7-18 Normal (applies to non-nume cande results) [facility] ([facility]) Glucose, Fasting 98 mg/dL 70-100 Normal (applies to non-numeric results) [facility] ([facility]) Creatinine For GFR 0.31 mg/dL 0.55-1.30 Below low normal [facility] ([facility]) Glomerular Filtration Rate Laboratory test result Normal (applies to non- numeric results) [facility]) <content>Units are mL/min/1.73 m2</content>
<content></content>
<content>Chronic Kidney Disease Staging per NKF:</content>
<content></content>
<content>Stage I & II GFR >=60 Normal to Mildly Decreased</content>
<content>Stage III GFR 30- 59 Moderately Decreased</content>
<content>Stage IV GFR 15-29 Severely Decreased</content>
<content>Stage V GFR <15 Very Little GFR Left</content>
<content>ESRD GFR <15 on TESTING DIRECTOR</content>
<content></content> Sodium Level 144 meq/L 136-145 Normal (applies to non-numeric res ults) [facility] ([facility]) Potassium Serum 3.5 meq/L 3.5-5.1 Normal (applies to non-numeric results) [facility] ([facility]) Chloride Level 110 meq/L 98-107 Above high normal [facility] ([facility]) Anion Gap 6 meq/L 8-16 Below low normal [facility] ( [facility]) Carbon Dioxide Level 28 meq/L 21-32 Normal (applies to non-num dave results) [facility]) Calcium Level 8.6 mg/dL 8.5-10.1 Normal (applies to non-numeric re sults) [facility]) ID Date Data Source [id number] 11/10/2019 08:55:00 AM EDT [facility]) Name Value Range Interpretation Code Description Data Amparo rce(s) Supporting Document(s) Red Blood Count 4.21 10 4.00-5.40 Normal (applies to non-numeric results) [facility] ([facility]) White Blood Count 6.5 10 4.0-10.0 Normal (applies to non-numeri c results) [facility] ([facility]) Mean Corpuscular Volume 98.8 fl 80.0-96.0 Above high normal [facility] ([facility]) Hemoglobin 13.5 g/dL 12.0-15.5 Normal (applies to non-numeric resul ts) [facility] ([facility]) Hematocrit 41.6 % 36.0-47.0 Normal (applies to non-numeric resul ts) [facility]) Red Cell Distribution Width 13.5 % 11.5-14.5 Norm al (applies to non-numeric results) [facility] ([facility]) Mean Corpuscular Hemoglobin 32.1 pg 27.0-33.0 Norm al (applies to non-numeric results) [facility] ([facility]) Mean Corpuscular HGB Conc 32.5 g/dL 32.0-36.5 Normal (applies to non-numeric results) [facility] ([facility]) Platelet Count, Automated 205 10 150-450 Normal (applies to non-numeric results) [facility] ([facility]) Nucleated Red Blood Cell % 0.0 % 0-0 Normal (applies to n on-numeric results) [facility]) ID Date Data Source [id number] 08/04/2019 09:29:49 AM [facility]T [facility] INFORMATIONPatient MRN Name Date of Age Gend*PT [id number] Vivian Bennett 1970 48 years F ---PT Location Admission Date/Time Visit ID Attending Provider --- --- --- --- EPI ID CSN Admitting Provider [id number] ---Subjective:Patient presents to the office for a follow up visit with a possible abdominalhernia. Patient is seen over various concerns related to her hernia repair 3 or4 months ago. States there is a "sharp point T" item just to the left of hermidline scar. Also states that her PCP says she is forming a new hernia in herright lower quadrantObjective:General: alert, appears stated age and cooperative Skin: No erythema, drainageLungs CTAHeart: RRRAbdomen: The palpable area of concern by the patient to the left of herincision likely represents scar tissue. Perhaps a suture. There is nocellulitis. No erythema. Certainly no evidence of a right lower quadranthernia where her abdominal wall is a virgin.Assessment:I advised the patient she does not have a hernia. The discomfort that she feelsoccasionally is not uncommon even 3 to 4 months after hernia repairPlan:1. Continue any current medications.2. Wound care discussed.3. Follow up: As needed4. 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/gsmWCkq0PRKGUxcV5VShxx77MnM6ynDdX/z4 [file] 1mSvYybtW5BAOOsKD1C6nfVZ9H0GA4mCV9H0+A48qstGSfGemI/pR3MtjGz+clinical support nurse+mGdz/lVLxEtWDZNzp [file] W9+6kwh6TD0HO+p+ngCxTnwd+EyyO2gwM+LABORATORY DEVELOPMENT TECHNICIAN+fc4LL [file] LABORATORY DEVELOPMENT TECHNICIAN+h9HA+YzwC2mZM+SMqYS5rFALsrKC3gvhFWosfWlbkt01sECVq8LJhTF6+WEW6XguWdeXEUBUfCl8Z [file] Crime Scene Analyst/VMmJX0L5bIw8FBAkAQrFChmuQ/K/lk5FTtN5cZE CUp7ggyjuRDUPF89OOQB7GjEph+Eedb3hjTXjvGp8FyHgSJk2M3oF7/g3BFgQ/9IksJv3K5h1VQ3zW7V qOicSZ4I7A02yjIXSEg0f1dD52s/dV1N3HTLHNjdAtS9M228zV5oOzHOy1buYxrBW78obt4znLHyjYYu 9ofLrH7zY+VFYMZD9/TwTH4CG52LCpKOigh75ppRUI aiZU39ySG+IyboRME8NTGO76LeLhZPgCQZFngA5x/aEm9xHz4ebB1ZG/aXFZf5eHXhlAqE7Ya0CxVgXn s7geQ+XUtf4PMAHHxRO/QpJ2+ii1H6/11vPEHad/BQdg7okII4RZwPK29Ko7utq8ryb8Dn9CVzRFqDtk WNWlLF3844uOxYXco10SUdZGrEzF1R1UnClx/l/HMw atr3ulsyijeZHZpjCbH/aRquv0GZvdjY4cxEav+BXtCv+b8Aj8mdgi3RS5fVk2EvB0XV0BTqjvZWLJDD zlv8iVxtvuaHu5gp8ftb0XcrM8E4h4a0G8gdAnSY8k0g1Ujy2H5N/bAjhJXMxFbXV26jQaxQu6/ZH3qI nadaPf8/KDuruKi+V9xOBVf3k9tAxYZLJANoRF5iMF e4fMfpByKQVNrJ6F3dJTRUMw7DCtVDQ+QFjfP9neze+felipe+/XZa+33+T7vZ+/nJXHEvqD+/xoHbec19j [file] 0GZRd27FEuSW26hoQUJTvqonNqlEIY4XzJxuuTfD9UKYuU4Bt7geUS5Zwq+4lUjsel8mN7BOmgh7o/LABORATORY DEVELOPMENT TECHNICIAN [file] 5h5dSiOys0v9Fa4hjtCLM106lUkTw5jk/drywall finisher foreman+1qQbls8RQaxQ4gvfZsqT/bBx49lkzKO9R5JmxNJM9PC [file] YROfE+45krU7z+RBfsUGDdLkk5Flt+3HQGIACZSvmuOUMLSGKLfZWLX+RIVERA/SU0+X529ptohzYA2rB/zK PD/soKr+jByQXBkj9MOF6vBMqtg2D3plA8+V/WTRQtTWhtaub0AQLtXSode9MbwPpTD8NIVqla8J/pwP nCBj77Nfw6ZbGum0FLlzv9mrNovvu9Gngxsa1FrZ16 w0hkivZ2YGiZcZdtPRaSjUy9Mp8e2xyZXt3hHTLz2rImcXI6ixQB65Rj7f49+GqJAUAEqxC31hUPm44u STauHGA9iT1T87SnHp1ATnpQTx9mBq6oRaoUBUqkuPBYKblQFcVIP5iGDlcfwR1m0zXneqLbf/z3SssV XwQbYmwyy6FvZng2yCxA4oAf3HDTxM5N01hG48pB7b JrmZB0jXMm28F+72ZhgQ3oklmIbEOGdGDHvfaBnzEc9iERF4cSOYovhEtdTAP6Xq+yFnSgpCGBP+QCmp T5ToNph+7+z4Et7Dal2RnkSjiZ7cnv68t0FVtvS8eINroX/blDk4GudvuM/cJt1VfEWRqYB5InONwA5i mxCDp3tYV3436bYNSes3IPjk3uZfa0PAAFVp0COT6l zPNTOCpw3iokoK4vxseIBDmuCQLLJkP9Id9bwU0H85236f2zcrEVAva6hsQ2vb3EwCoa12Ar6h3ggpfA aMIGxEjAt2buQdpbMGF3TVt+MLq8i8IRgWBpkSZRWQ2xn3qbBndziEfxwNLrWLioIZE3Oc77u+f+qY6l o7ZLenkhkZM28a56abx8AlUmy/WnW0CwCv+awNiSKw r21Um3hyvjyWUxoVNUEsEOdsQEaUspOKyPr9W9bPpf/kQZAd4wfFIzOAmhErurXdPecUtVjlxf+fN4e1 aYyOUtcf7kg1l9nH0Vqnki9V6L4ktkgGEGy0WYhTtVhwNZInjN1pz5ApUFko8dVmkc7luUsqnYGrszdN 10LGLZkXrgl/+rF7APdxxn8+QZNdbcNmKxvtKrO [file] 7X6syV+GKY7t6+fruit loader+D1UMfzvrixwqBh+EKS1XJlhK [file] HJQUqdCZ+x4vaNzDXB7oNYyAL9U+C+4CdTNkMII5jEKdHB1R8/exeh6bdWWgd9AY0qs+MY8Zu0ON+Wild Oyster Harvester [file] 6wVbEdqq+eNmRDRWepA0eQKg97n5MVxkk8Z4Xsax1p0VLnq0GM6SWdWo9gXsiKn7lQh/1sXxjR2u/SETTER MOLDING AND COREMAKING MACHINES lVwzwfUbTLjw0r6iAetZ5haA+FcxN1Jl4SvYac4evv25SegydfEUadKrQX8RnTj1wl6dqAHJdzerWFCZ dxc+BkQpbm94Yqq3NXj9xPU1O3bwLksAaSNaf+5bJ5 SFSAnlfhceg7G4yF/Alexi/sPumbz132Ho11fbN3z+KRdDPykahWCdfY1QwKO0vQaxImdRGMyPtn1s9pBV [file] wykcJowBJwTJ9OJfPnXH1dlc7BDlT5TCD2tIOvNz8BJVT3SHKiTp8XSRZJR7O= ID Date Data Source [id number] 05/05/2019 11:30:40 AM EDT [facility] NT INFORMATIONPatient MRN Name Date of Age Gend*PT [id number] Vivian Bennett 1970 48 years F ---PT Location Admission Date/Time Visit ID Attending Provider --- --- --- --- EPI ID [facility] Admitting Provider [id number] ---Subjective:Patient presents to the office for a follow up visit. Other than discomfort inthe left of midline at the hernia repair site the patient has no complaints.Not having severe pain. No fever or chills. Tolerating oral intake well.Objective:General: alert, appears stated age and cooperative Skin: No erythema, drainageLungs CTAHeart: RRRAbdomen: Primary incision is well healing. Remaining al are removed.There is no cellulitis. No erythema. No wound drainage. Abdominal exam isunremarkableAssessment:No late com plications. Patient very happy with her outcomePlan:1. Continue any current medications.2. Wound care discussed.3. Follow up:4. All questions were answered in full Name Value Range Interpretation Code Description Data Amparo rce(s) Supporting Document(s) ID Date Data Source [id number] 04/20/2019 07:13:13 AM EST [facility] NT INFORMATIONPatient MRN Name Date of Age Gend*PT [id number] Vivian Bennett 1970 48 years F ---PT Location Admission Date/Time Visit ID Attending Provider --- --- --- --- EPI ID CSN Admitting Provider [id number] ---Subjective:This is a patient of Dr Grier who presents to the office for a post op visit.Patient is post multiple incisional hernia repair on 04/07/2019. Overall she isdoing well but is having discomfort at the incision site. Is wearing her binder.No nausea or emesis is noted. No constipation noted.Objective:General: alert, appears stated age and cooperativeSkin: No erythema, drainageAbdomen: soft, non-tender. Incision is clean and dry. Hallwood removed exceptaround the umbilicus. Skin is noted to have pulled away at edges .Assessment: Doing well postoperatively.Plan:1. I have refilled pain medications for her , temporarily2. she will continue to wear and abdominal binder3 she will follow up in 2 weeks for removal of the rest of the staples4 she will call with any questions or concernsGINO Stokes Name Value Range Interpretation Code Description Data Amparo rce(s) Supporting Document(s) ID Date Data Source [id number] 04/11/2019 06:54:18 AM EST [facility] NT INFORMATIONPatient MRN Name Date of Age Gend*PT [id number] Vivian Bennett Priscila 1970 48 years F IPPT Location Admission Date/Time Visit ID Attending [id number] 04/07/19 0945 --- --- EPI ID CSN Admitting Provider [id number] Vannessa Marshall MD([id number]) Attestation signed by Shannan Grier MD at 04/11/2019 6:54 AMI saw and evaluated the patient and reviewed PA's note. I agree with thehistory, physical and medical decision making with the following additions,exceptions, and/or observations:nonoeSignature: NAVA Harpate: April 11, 2019Time: 6:53 AM --Surgical Services Discharge SummaryVivian Bennett date: 04/07/2019Attending Physician: Billy Harp Procedures: REPAIR, HERNIA, MULTIPLE INCISIONALIndication for Admission: incisional hernia repairHospital Course & Complications: This is a 48 year old female that presented jesus elective incisional hernia repair. On 04/07/19 was taken to the operatingroom and underwent the above listed procedure. Post operatively pain wascontrolled and diet advanced as tolerated. Throughout hospital stay vital signswere monitored, electrolytes repleated as need, and DVT prophylaxis initiated.Her drain was removed 04/09/19. On 04/10/19 the patient is tolerating a diet, paincontrolled, VS stable, and activity level is at baseline. The patient is deemedappropriate for discharge.Medications:Your medication listCONTINUE taking these medications Instructions Last Dose Given Morning Afternoon Evening Bedtime As Neededacetaminophen 500 MG tabletCommonly known as: TYLENOL Take 2,000 mg by mouth 2 (two) times a day as needed for painalbuterol 108 (90 Base) MCG/ACT inhalerCommonly known as: PROVENTIL HFA;VENTOLIN HFA Inhale 2 puffs 2 (two) times a day as needed for shortness of breathaspirin 81 MG tablet Take 81 mg by mouth dailyclopidogrel 75 MG tabletCommonly known as: PLAVIX Take 75 mg by mouth dailyCVS B-12 1000 MCG TbcrGeneric drug: Cyanocobalamin ER Take 1,000 mcg by mouth dailydocusate sodium 100 MG capsuleCommonly known as: COLACE Take 100 mg by mouth daily as needed for constipationomeprazole 20 MG capsuleCommonly known as: PriLOSEC Take 20 mg by mouth dailysertraline 100 MG tabletCommonly known as: ZOLOFT Take 100 mg by mouth dailysimvastatin 40 MG tabletCommonly known as: ZOCOR Take 40 mg by mouth dailyvitamin D (Ergocalciferol) 1.25 MG (42353 UT) Caps Take 1 capsule by mouth once a week on Exam:Temp: [97.3 F-98.9 F] 97.3 FHeart Rate: [71-88] 78Resp: [16-18] 18BP: (93-129)/(60-76) 117/76Intake/Output Summary (Last 24 hours) at 04/10/2019 1324Last data filed at 04/10/2019 1054Gross per 24 hourIntake 2307.4 mlOutput 3350 mlNet -1042.6 mlGeneral: Alert, conversing appropriatelyHeart: S1S2 RRRLungs: CTA bilaterallyAbdomen: soft, NDNTExtremities: No edema, erythema, or tenderness of lower ext bilaterally.Surgical site(s): c/d/iDischarged Condition:goodCode status: Full CodeDisposition: Home or Self CareFollow Up: Discharge instructions were reviewed with patient. Follow up in theoffice as scheduled. She understands to call the office with any questions orconcerns. Discussed above discharge plan with attending, MICHAEL Harpignature: KANA Campbellate: April 10, 2019Time: 1:24 PM Name Value Range Interpretation Code Description Data [facility](s) Supporting Document(s) ID Date Data Source [id number] 04/10/2019 04:39:42 AM EST [facility] Name Value Range Interpretation Code Description Data Amparo [facility](s) Supporting Document(s) SODIUM 141 mmol/L (136-145) [facility] POTASSIUM 4.2 mmol/L (3.6-5.2) [facility] CHLORIDE 105 mmol/L (100-108) [facility] CO2 30 mmol/L (22-31) [facility] ANION GAP 6 mmol/L (7-16) L [facility] UREA NITROGEN 7 mg/dL (7-24) [facility] CREATININE 0.55 mg/dL (0.60-1.00) L [facility] BUN/CREAT RATIO 12.7 RATIO (10.0-20.0) [facility] GLUCOSE 90 mg/dL (70-99) [facility] CALCIUM 8.8 mg/dL (8.4-10.2) [facility] GFR >60 ml/min/1.73m2 (>59) [facility] GFR ( AMER) >60 ml/min/1.73m2 (>59) [facility] GFR INTERPRETATION [facility] --NORMAL KIDNEY FUNCTION OR MILD DISEASE - GFR >OR= 60CHRONIC KIDNEY DISEASE - GFR 15 - 59RENAL FAILURE - GFR <15 Est. GFR calculation based on the MDRDstudy equation, which assumes a steadystate for creatinine. Est. GFR should notbe used for medication dosing. ID Date Data Source [id number] 04/10/2019 04:13:34 AM EST [facility] [place] Name Value Range Interpretation Code Description Data Amparo rce(s) Supporting Document(s) WBC 3.8 10*3/uL (4.1-11.0) L [facility] [place] RBC 3.87 10*6/uL (4.00-5.40) L [facility] HGB 12.3 g/dL (12.0-16.0) [facility] HCT 36.9 % (36.0-47.0) [facility] MCV 95.5 fL (80.0-95.0) H [facility] MCH 31.9 pg (27.0-32.0) [facility] MCHC 33.4 g/dL (32.0-36.0) [facility] RDW 13.9 % (10.5-14.5) [facility] PLT 196 10*3/uL (150-450) [facility] MPV 7.3 fL (7.1-10.7) [facility] ID Date Data Source [id number] 04/09/2019 07:24:51 AM EST [facility] Name Value Range Interpretation Code Description Data Amparo rce(s) Supporting Document(s) SODIUM 139 mmol/L (136-145) [facility] POTASSIUM 4.0 mmol/L (3.6-5.2) [facility] CHLORIDE 103 mmol/L (100-108) [facility] CO2 31 mmol/L (22-31) [facility] ANION GAP 5 mmol/L (7-16) L [facility] UREA NITROGEN 4 mg/dL (7-24) L [facility] CREATININE 0.53 mg/dL (0.60-1.00) L [facility] BUN/CREAT RATIO 7.5 RATIO (10.0-20.0) L [facility] GLUCOSE 100 mg/dL (70-99) H [facility] CALCIUM 8.7 mg/dL (8.4-10.2) [facility] GFR >60 ml/min/1.73m2 (>59) [facility] GFR ( AMER) >60 ml/min/1.73m2 (>59) [facility] GFR INTERPRETATION [facility] --NORMAL KIDNEY FUNCTION OR MILD DISEASE - GFR >OR= 60CHRONIC KIDNEY DISEASE - GFR 15 - 59RENAL FAILURE - GFR <15 Est. GFR calculation based on the MDRDstudy equation, which assumes a steadystate for creatinine. Est. GFR should notbe used for medication dosing. ID Date Data Source [id number] 04/08/2019 06:37:13 AM EST [facility] NT INFORMATIONPatient MRN Name Date of Age Gend*PT [id number] Vivian Bennett 1970 48 years F SDCXPT Location Admission Date/Time Visit ID Attending [id number] 04/07/19 0945 --- Shannan Grier MD([id number]) EPI ID CSN Admitting Provider [id number] Shannan Grier MD([id number]) [place] [address] OPERATIVE REPORT OPNAME: VIVIAN BENNETT#: [id number] ROOM #: ORPOPL ADMISSION DATE: 04/07/2019DOB: 1970 SEX: F PT TYPE: S SURACCT #: [id number] CARE PHYSICIAN: SHEELA PATE PHYSICIAN: SHANNAN GRIERDATE OF OPERATION: 04/07/2019ATTENDING DOCTOR:Shannan Grier MD.BUDGET DIRECTOR:GINO Pinto.PREOPERATIVE DIAGNOSIS:Multiple incisional hernias.POSTOPERATIVE DIAGNOSIS:Multiple incisional hernias.PROCEDURE PERFORMED:1. Laparotomy with extensive adhesiolysis (30+ minutes).2. Mesh repair of multiple incisional hernias (Ventralight ST hernia patch6 x 8 inches).INDICATIONS:This is a 48-year-old female status post colon resection, has formedmultiple painful incisional hernias. She is brought to the operating roomfor surgical correction.FINDINGS AT OPERATION:The largest hernia defect was in the right lower quadrant. Two otherhernia defects of 3-4 cm were located to the left of midline. There wereseveral smaller hernias in the midline.DESCRIPTION OF PROCEDURE:The patient received IV antibiotics. General anesthesia was administered.Dr. Grier inserted a Mario catheter. She was prepped with ChloraPrep anddraped. A timeout was performed. Her prior mid abdominal incision wasopened completely. On entering the abdomen, multiple adhesions to theanterior abdominal wall required dissection to define the hernia defects.As previously stated, the largest defect was then just to the right of thelower midline. This was primarily closed with running simple 0 Prolenesuture. Three other hernia defects smaller ranging from 2.0 to 2.5 cm werealso primarily closed. All of these hernia defects, which were primarilyclosed with be covered with the mesh patch. A Ventralight ST hernia patch6 x 8 inches was selected. Its longitudinal axis was located in thevertical midline. At 12, 3, 6, and 9 o'clock, #1 PDS suture was used totack the mesh in 4 quadrants to the anterior abdominal wall. Runningsimple #1 PDS was then run from 12-6 o'clock and from 6-12 o'clock so as toclose all gaps between the mesh and the anterior abdominal wall. A 19Blake drain was brought through the left abdominal wall and placed over themesh.I negated to state one critical item of this operation. On opening themidline, I found two separate collections of white material resembling pus. It was cultured and a stat Gram stain was requested. Because of the delayin getting the Gram stain back, we called bacteriology/lab and we were toldthat a Gram stain had to be sent out of the hospital to be performed. Ifelt that this was unheard of. I was in need of knowing whether thecollection of white material was pus, which I doubted, did it contain whitecells and visible bacteria or not. Unfortunately, we were unable to getthat answer. The surgical field was irrigated, 3 separate times copiously with IrriSept. I should also note that preoperatively, there was nosuggestion whatsoever of the fascia or subcutaneous infection and thepatient's wound.I defined the midline fascia. It was closed with running simple #1 PDS. Afifth irrigation of IrriSept was now performed on the subcutaneous tissues. Skin closed with al. Drain secured to the skin with 3-0 nylon.Sterile dressings applied.At the conclusion of the procedure, there were no recognized complications. Counts were correct. Blood loss was minimal. Case was classified asclean, but could be infected if Gram stain results suggest this w pretty butchfredi returned.ROHAN HARP/MARLI Job #: [id number] DOC #: [id number] Name Value Range Interpretation Code Description Data Amparo rce(s) Supporting Document(s) ID Date Data Source [id number] 04/08/2019 07:01:10 AM EST [facility] Name Value Range Interpretation Code Description Data Amparo rce(s) Supporting Document(s) SODIUM 137 mmol/L (136-145) [facility] POTASSIUM 4.4 mmol/L (3.6-5.2) [facility] CHLORIDE 104 mmol/L (100-108) [facility] CO2 28 mmol/L (22-31) [facility] ANION GAP 5 mmol/L (7-16) L [facility] UREA NITROGEN 7 mg/dL (7-24) [facility] CREATININE 0.58 mg/dL (0.60-1.00) L [facility] BUN/CREAT RATIO 12.1 RATIO (10.0-20.0) [facility] GLUCOSE 113 mg/dL (70-99) H [facility] CALCIUM 8.9 mg/dL (8.4-10.2) [facility] GFR >60 ml/min/1.73m2 (>59) [facility] GFR ( AMER) >60 ml/min/1.73m2 (>59) [facility] GFR INTERPRETATION [facility] --NORMAL KIDNEY FUNCTION OR MILD DISEASE - GFR >OR= 60CHRONIC KIDNEY DISEASE - GFR 15 - 59RENAL FAILURE - GFR <15 Est. GFR calculation based on the MDRDstudy equation, which assumes a steadystate for creatinine. Est. GFR should notbe used for medication dosing. ID Date Data Source [id number] 04/08/2019 06:35:50 AM EST [facility] Name Value Range Interpretation Code Description Data Amparo rce(s) Supporting Document(s) WBC 7.9 10*3/uL (4.1-11.0) [facility] [place] RBC 4.22 10*6/uL (4.00-5.40) [facility] HGB 13.5 g/dL (12.0-16.0) [facility] HCT 39.8 % (36.0-47.0) [facility] [place] [address] [place] [address] MCV 94.4 fL (80.0-95.0) [facility] MCH 31.9 pg (27.0-32.0) [facility] MCHC 33.8 g/dL (32.0-36.0) [facility] RDW 14.0 % (10.5-14.5) [facility] PLT 223 10*3/uL (150-450) [facility] MPV 7.5 fL (7.1-10.7) [facility] ID Date Data Source [id number] 04/07/2019 12:33:17 PM EST [facility] Name Value Range Interpretation Code Description Data Amparo rce(s) Supporting Document(s) EKG [facility] BQKGEs1dIfTHSePlk5BzNrHwKBWiZP8cjyh6I6U2gUSlV7VeuSMdg2zcH8IjB2QzFXBsYZISSV6WfVLt jb2 [file] BSCgo+KkcrxTJfoVauMMFPUNJ4DjUEMZYZL6V= ID Date Data Source [id number] 04/07/2019 12:23:53 PM EST [facility] NT INFORMATIONPatient MRN Name Date of Age Gend*PT [id number] Vivian Bennett 1970 48 years F SDCXPT Location Admission Date/Time Visit ID Attending Provider --- --- --- --- EPI ID CSN Admitting Pr ovider [id number] ---AirwayPatient location during procedure: ORUrgency: electiveDifficult airway: noAdvanced airway equipment used: noStaffingPerformed by: Manuel Gutierrez, CRNAAnesthesiologist: Sky Ling, DOIndications and Patient ConditionIndications for airway management: anesthesiaPreoxygenated: yesPatient position: supineIn-line stabilization: noMask ventilation: 1 - vent by maskFinal Airway/ApproachesFinal airway type: ETTNumber of attempts at final approach: 1Number of other approaches attempted: 0Final Airway DetailsFinal ETT airway: ETT - singleCuffed: yesTechnique used for successful ETT placement: direct laryngoscopy and regularstyletCricoid pressure: noRSI: noInsertion site: oralBlade type/size: MAC 3.5ETT size: 7.5 mmMeasured from: lipsETT to lips: 23 cmPlacement verified by: chest auscultation, + ETCO2 and palpation of cuffAuscultation: CTA and equal breath sounds bilateralGrade view: grade I - full view of glottis Name Value Range Interpretation Code Description Data Amparo rce(s) Supporting Document(s) ID Date Data Source [id number] 06/02/2019 10:17:55 AM EDT [facility] SPECIMEN DESCRIPTION ABSCESS SUBCUTANEOUSSPECIAL REQUESTS NONEACID FAST SMEAR NO ACID FAST BACILLI (CONCENTRATED SMEAR)CULTURE RESULTS NO ACID FAST BACILLI ISOLATED AFTER 8 WEEKSREPORT STATUS FINAL 06/02/2019 Name Value Range Interpretation Code Description Data Amparo rce(s) Supporting Document(s) ID Date Data Source [id number] 05/12/2019 10:05:30 AM EDT [facility] SPECIMEN DESCRIPTION FLUID ABSCSPECIAL REQUESTS NONECULTURE RESULTS NO FUNGUS ISOLATED AFTER 5 WEEKSREPORT STATUS FINAL 05/12/2019 Name Value Range Interpretation Code Description Data Amparo rce(s) Supporting Document(s) ID Date Data Source [id number] 04/10/2019 01:44:51 PM EST [facility] SPECIMEN DESCRIPTION FLUID ABSC SUBCUTANEOUSSPECIAL REQUESTS NONECULTURE RESULTS NO ANAEROBES ISOLATEDREPORT STATUS FINAL 04/10/2019 Name Value Range Interpretation Code Description Data Amparo rce(s) Supporting Document(s) ID Date Data Source [id number] 04/10/2019 01:44:16 PM EST [facility] SPECIMEN DESCRIPTION ABSCESS SUBCUTANEOUSSPECIAL REQUESTS NONEGRAM STAIN FEW (<10/LPF) WHITE BLOOD CELLS NO BACTERIACULTURE RESULTS NO GROWTHREPORT STATUS FINAL 04/10/2019 Name Value Range Interpretation Code Description Data Amparo rce(s) Supporting Document(s) ID Date Data Source [id number] 04/07/2019 11:09:32 AM EST [facility] Name Value Range Interpretation Code Description Data Amparo rce(s) Supporting Document(s) POC [facility] <5.0 IU/L [facility] INTERPRETATION:<5.0 NEGATIVE5.0- 25.0 INDETERMINATE>25.0 POSITIVELEVELS BETWEEN 5 AND 25 IU/L MAY INDICATEEARLY AND SHOULD BE REPEATED JONN BLOOD SAMPLE AFTER 48 HOURS.PERFORMED BY [facility] CLINICAL STAFF ID Date Data Source [id number] 04/07/2019 11:09:27 AM EST [facility] [place] Name Value Range Interpretation Code Description Data Amparo rce(s) Supporting Document(s) POC SOURCE [facility] POC TEMPERATURE [facility] POC FIO2 [facility] POC VENOUS PH 7.46 pH (7.33-7.43) H [facility] POC VENOUS PCO2 41.3 MM HG (38.0-50.0) [facility] P[facility]ENOUS PO2 36 MM HG (30-50) [facility] POC VENOUS SO2 72 % (60-85) [facility] POC VENOUS BASE EXCESS 5 mmol/L [facility] VENOUS HCO3 29.1 MMOL/L (23.0-27.0) H [facility] POC VENOUS TOTAL CO2 30 MMOL/L (24-28) H [facility] PERFORMED BY [facility] CLINICAL STAFF POC HCT 42 % (36.0-47.0) [facility] POC SODIUM 140 MMOL/L (136-145) [facility] P[facility] POTASSIUM 3.8 MMOL/L (3.6-5.2) [facility] POC IONIZED CALCIUM 4.7 MG/DL (4.6-5.3) [facility] POC GLU 96 MG/DL (70-99) [facility] PERFORM LAB [facility] ID Date Data Source [id number] 04/07/2019 10:47:25 AM EST [facility] NT INFORMATIONPatient MRN Name Date of Age Gend*PT [id number] Vivian Bennett 1970 48 years F SDCXPT Location Admission Date/Time Visit ID [facility] --- Shannan Grier MD([id number]) EPI ID CSN Admitting Provider [id number] Shannan Grier MD([id number])H&P reviewed. The patient was examined and there are no changes to the H&P.Signature: NAVA Harpate: April 07, 2019Time: 10:47 AM Name Value Range Interpretation Code Description Data Amparo rce(s) Supporting Document(s) ID Date Data Source [id number] 04/07/2019 11:55:50 AM EST [facility] SPEC EXP DATE 04/10/2019PATI ENT ABO/Rh A POSITIVEANTIBODY SCREEN NEGATIVETESTING SITE PERFORMED AT [address] [place] [id number] Name Value Range Interpretation Code Description Data Amparo rce(s) Supporting Document(s) TYPE AND SCREEN [facility] ID Date Data Source [id number] 03/31/2019 01:39:00 PM EST [facility] NT INFORMATIONPatient MRN Name Date of Age Gend*PT [id number] Vivian Bennett 1970 48 years F OPPT Location Admission Date/Time Visit ID Attending Provider --- --- --- Shannan Grier MD([id number]) EPI ID CSN Admitting Provider [id number] ---OUTPATIENT / OBSERVATIONAL SURGICAL OR INVASIVE PROCEDUREName: Vivian Bennett : 1970 Sex: female Care Provider: Dawood Bonner Physician: Dr. Allen Diagnosis/Indication: Incisional hernia, without obstruction organgrene.Procedure: REPAIR, HERNIA, MULTIPLE INCISIONAL on 04/07/2019HISTORY OF PRESENT ILLNESS: This is a 48 years old white female who felt severalabdominal bulges in November 2018. Patient complains of intermittent abdominalpain. The pain aggravates with exertional activity. She denies any nausea,vomiting, constipation, diarrhea or blood in the stool. Patient was referred toDr. Grier for surgical intervention. 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 Garnica SURGICAL HISTORY:Past Surgical History:Procedure Laterality Date SECTION x 2 FEMORAL ENDARTERECTOMY Bilateral 06/2017 Right common iliac artery endarterectomy, left common iliac arteryendarterectomy, aortobiiliac bypass graft PELVIC LAPAROSCOPY TUBAL LIGATIONALLERGIES:AllergiesAllergen Reactions Nickel Other (See Comments) Skin weepingMEDICATIONS:Prior to Admission medicationsMedication Sig Start Date End Date Taking? Authorizing Provideracetaminophen (TYLENOL) 500 MG tablet Take 2,000 mg by mouth 2 (two) times a dayas needed for pain Historical Provider, MDalbuterol (PROVENTIL HFA;VENTOLIN HFA) 108 (90 Base) MCG/ACT inhaler Inhale 2puffs 2 (two) times a day as needed for shortness of breath 12/26/18Historical Provider, MDaspirin 81 MG tablet Take 81 mg by mouth daily Historical Provider, MDclopidogrel (PLAVIX) 75 MG tablet Take 75 mg by mouth daily 02/13/19Historical Provider, MDCyanocobalamin ER ([facility] B-12) 1000 MCG TBCR Take 1,000 mcg by mouth dailyHistorical Provider, Navaocusate sodium (COLACE) 100 MG capsule Take 100 mg by mouth daily as needed forconstipation Historical Provider, omeprazole (PRILOSEC) 20 MG capsule Take 20 mg by mouth daily HistoricalProvider, Michaelertraline (ZOLOFT) 100 MG tablet Take 100 mg by mouth daily HistoricalProviMichael floresimvastatin (ZOCOR) 40 MG tablet Take 40 mg by mouth daily 02/13/19Historical Provider, vitamin D, Ergocalciferol, 1.25 MG (61321 UT) CAPS Take 1 capsule by mouth oncea week on Saturday Historical Provider, JON ASPIRIN ADULT LOW STRENGTH 81 MG EC tablet 02/13/19 03/31/19 HistoricalProviVita flores HistoryTobacco Use Smoking status: Former Smoker Packs/day: 1.50 Years: 30.00 Pack years: 45.00 Types: Cigarettes Last attempt to quit: 2018 Years since quittin.0 Smokeless tobacco: Never UsedSubstance Use Topics Alcohol use: Yes Comment: rare Drug use: Yes Types: Marijuana Comment: last used 03/31/2019Family HistoryProblem Relation Age of Onset Heart disease Mother Hypertension Mother Prostate cancer Brother Breast cancer Other Ovarian cancer Other Hypertension Father Hearing loss Father Malig Hyperthermia Neg HxREVIEW OF SYSTEMS:Testing Based on Symptoms:In the last six (6) weeks, has the patient experienced any of the followings ymptoms?Chest Pain? NoShortness of Breath? NoPalpitations? NoChange in ADLs (Frailty Scale)? NoHospitalization? NoChange in cardiac, respiratory or Neuro medications? NoAcute Antibiotic Therapy? NoRespiratory: Denies any shortness of breath, cough, yellow sputum production orwheezing.Cardiovascular: Denies any chest pain, pressure or tightness. Denies dyspnea ororthopnea.Neurologic: Denies any numbness, tingling, tremors or syncope.Vascular: Denies any edema. Denies claudication.BP 124/72 (BP Location: Left upper arm) | Pulse 80 | Ht 1.575 m (5' 2") | Wt71.6 kg (157 lb 14.4 oz) | SpO2 94% | BMI 28.88 kg/m [facility] Frailty Scale :: 3/10 Managing Well (medical problems are well controlled,but are not regularly active beyond routine walking).Stop Bang Questionnaire - Total Score:PHYSICAL EXAM:Airway - 1Mental and Neurological Status: STVl4NYREB: Clear to auscultation. No wheezes, rhonchi or crackles.HEART: Rate rhythm regular. S1, S2. No murmur, rub or gallop.ABDOMEN: Bowel sounds positive times four. Sof. Large left abdominal herniatender to palpation. No hepatosplenomegaly. Negative CVAT.EXTREMITIES: Pulses are symmetrical. No edema.NECK no carotid bruit bilaterally.03/31/2019 1:38 PMLyudmiskylar Stevenstiv, LABORATORY DEVELOPMENT TECHNICIAN Name Value Range Interpretation Code Description Data Amparo rce(s) Supporting Document(s) ID Date Data Source [id number] 03/24/2019 09:18:10 AM EST [facility] NT INFORMATIONPatient MRN Name Date of Age Gend*PT [id number] Vivian Bennett 1970 48 years F ---PT Location Admission Date/Time Visit ID Attending Provider --- --- --- --- EPI ID CSN Admitting Provider [id number] ---Subjective:Patient presents to the office for followup of abdominal wall hernia aftercolonoscopy was done 03/16/19. Patient is seen with her family members present.She is undergone colonoscopic assessment with biopsy of multiple polyps. Noneof which appear to be malignant. States she continues to have rather severepain from her multiple hernias.PATHOLOGY:Objective:General: alert, appears stated age and cooperative Skin: No erythema, drainageLungs CTAHeart: RRRAbdomen: I examined the patient in the standing and reclined posture. Herlargest hernias are bilateral para incisional hernias in the lower midline area.She also has hernias throughout her upper midline but they are smaller. Allhernias appear to be reducible.Assessment:I offered the patient an opportunity to visit with 1 of my partners who mightattempt to do her surgery robotically. I explained that this usually was lesspainful and offered a faster recovery. After rather lengthy conversationhowever she would like to proceed with open repair and I will perform thesurgeryPlan:1. Continue any current medications.2. Wound care discussed.3. Follow up: Postop4. All questions were answered in full Name Value Range Interpretation Code Description Data Amparo rce(s) Supporting Document(s) ID Date Data Source [id number] 03/18/2019 11:30:00 AM EST [facility] Name Value Range Interpretation Code Description Data Amparo rce(s) Supporting Document(s) EGD-Colonoscopy [facility] LSKQPh1uUoRRYnRfIVHdTmnTIVgeFOfkKVFwG3M8EJzaCt9XSBdcgcUuSTHxWz2+TRNkFP7vnr0jBWVw gMy [file] +PQiksoL/cherry cutter/8LwL/EoUdkUd1HGlhgmAiMNj71jddsQE+h0yY5WJ7Jle4cgDjNhVDbydCWQq7ug+W/A Ve8xGADD/zp62hZjh0OuOABeuInx2zNGsjJ46e05Rb +Oqcc4k3bIV0D/tq1GvS2Rjk1169Cic285Ju+B+6Zery4RMU7WlIRDNGtUojgMV9TK2Fk3+dMBkj/JOSE [file] ADJUSTMENT EXAMINER+PDcIn6JIiXsZ9XJpKS/Vn1a/PYlfQk1s7zXAfT5 kfY5E5snOmObyZR0a9sNi26hCy22aCpar+ZrH82bk3aR/D5sV+qGzLDKvCcGzIkoAIhiOOonMNjXoFPL GLXqsvoHH/oHyPicOfjSDdOx/38uwVThccbTQMjziXNIW/HEljQBJAmXl1QPNALEFKNU3jNqeuaYb9IZ EnQKcU19wkm3FTVpHce5vFz2Cx6jX4HEjFtkHqB4/H 5PXfin8pQ+Ravinder/A7tqtoeKDt92G8doxELCiltVhRcsBE1U3zawc+9TZS322T/2OR2FUYdfDnHP9niVb zNIkaSJqmmlzA8Ex0mBWjcMPpSFrrVKrJtlP2etMHSbTgFNV5gjFoDPYvPyFcr1mv4Ct8E0P4SyW65qh qx7ADYylOll/kzqrCvLIxokXEo9G0MyEdoisxqfD5g DmUK0q7UFlBea7IRnQgi86+3kXImoN9u0TV7AKOFb1RsEfuBH6vOFafVelXMCHuOp6669FqoFMi2+6B4 Rz+im2+GvF6Lk46tHBP7a/YCzy+TGsxvS4gzr66Oz+UayhVRE0O1WnB+h1tG+SYeuZf3d8lXbFVxD1t0 Xpv37c7BGh0QKZGPpTpz0NsKbXIzqJVrk6eAd8m44t vk+2RP2TG6mgfUQ/6zEqULfmv0tYi0IGHFuFED4p40rrPb3P6QyE3zMdtnFuPvLtYY+RQMJPNPi3drWu 7aiyvSOXOu1lbKwdW2Jx6cMKwGbrEVLr3En6BcDJ30uuxJXrURBEZdO4hz7cAwiBqzIIS7VB2M/SRsll 6YrMfQcRz2/X4bOzU0b9pfGekN6YafYu00QHgb/jUX bf54L3HuNjNnAgsMv7LGIrOZja/gKECrWe1rwtkxd4VTdTgB3+LDDegbwiJGI1dCTVAWPylfBLZXRFFA tj44vtepdNFDYY5Y7MFNsmFt+g5y9VSrjeLWMdXb6Uysy1ecPtPVXltunlooji4BdzRmFIjk2kwfGbN8 rrcDV+3eoHrMPP0wZnwqJGOfA4vS4jD3fvYREmkqO1 4neWt4RuZ30m2HqWd7TIKoJM5h5xx0PQ3XCJ2FD1u2kCwczuky1fUhn/Monisha+o80SToKjlFicw3ICM/DU [file] [facility]+rHKl76gv8JACSv8nXB1HNszylLEIYdVyYY93rKHY5ZST0og0J4Rmm/CETdPqTGqdyT0BebJW1v [file] PBkPFaHemdNSg3C6ESev9bjYeDumT0RxZP9oc3CPUmli+YjxlXAwmMbMTIkTA5uLbSSliv/Crime Scene Analyst/8OxrWO [file] purchasing assistant//lJBK+Al7JThoxEcBhI/BnZSucPJmoeLGhMFjbGPd7mhHcN9eRhjSZitOS3OqDNLI3p0hNi5daPri [file] 1aMZKNc+hChK2qAKUr3TTXrlZdRLPvcET49cDU3DEBr4UWWkBdorB64Ka8NTRFBRQrZ+purchasing assistant+5E8qZHDOy [file] veterinary assistant/GvcN0NvT3Apg7HZKe2c1B40w71MbT7mFAZ1tT88wsGortm8sUTVb/6VnQuEs4EKaMMTdgsGM0Wws c5/+IsD1+zZtJ8P0wyv2qORhWkRBFluLeE3L15evRmr1zqvufRCeNbbosyI4pKmLl7Y7T9IOWue7I94h Q+1fCJxOg29DDhX1f42MXOvMK3/KxmDeSbAyidC5RF c3OQmjuvQbFq1iVSre0WGgJ4MB+xqNl7/ktvKTUxDHbKrorBhXeAqtU+23VXwFdfuFLRo2fZwc8cd55L HGL4LRluhBkNxdehliYaXn6WkRN0Jy9OKFmhryH00K8rUHNy3o+e5DIt2g15u04IULXEw3hxs6/ZomfZ KZS9k50xSuTp5j3wq+Klr3iHj1BM1DUcP4uAWx+3l3 abEkQ6bOrn2QRIbz/fTKkhOGmh6GSmhGPAprGP+KLZAloC8C3uCDDpw0i3dSMhHtguOSEPNCx5Y3JIC2 9tsBe4jc4e5ZUbUFyG9i7hluohn7I6JI5w417n+5zL4cHjewsH+NLOTbQA0FAPdRPa8iONH8Co8yUzZX dtKoYDH+/Y+oVNze7z4O8NXnGGkqfip0PJ51OrvY4M mMnjaQAvh0jbBimIycjxx/TDl3oBf5JRveS32sigUu91Pn4X7+i+bncwlfhQ7PbrYP198LMS5jWYV4gw Jpl8Nl4Ld40VrueMqQsXZSz5Kv8+1ueKh5WcSVxx26VuNDRCOksP2hh5U2/izgSRV7m/hhQJ86Tahdvs cnvsJcNXr4EujnsImz6Jqpfy1ZalktfhWndDSZ+oEO [file] gKgMt/vEnID5emFpZiLFzj9UCl16jjjjk2Q6hbC3N3/maJgchlLx7Qc7OgcKH96XOt2CM7i79/Crime Scene Analyst+pb6 [file] uCVAs/XXv8KwrlrymcnhrwIIMo5Xqn3Uh/ZKDPcCCQ0Z72oGd99lru/o654oEXAa6omGsVP8ZTP60/purchasing assistant [file] hMYWFTcp2GvxgssWp4Hv1BNvByLtwD7WVmQsN75Ia8jUNrvM/1/ldCWQDVsssGOf2gGOCIx9Bwa7+Steam Table Attendant M4IV3rEcLn1Kvo7+wm0Yvmi155N5r4TOG30HPvnWiP fuqynl3O2RyIKBq8+LISA/TzwkVmEOxYJZqK9s3syVFdPyIxrFps++DxJmRu39bALUev4v6oGKW1qlzum DqVPzmEMvt0FqmF8yibKXp7BgXZ3O9SwOPjmOlWNkvUDMVFhfbSVhS4O5kAFeQKJ2gtdEJpqDJLKpzd/ AmQ0vlGEa1eFJIfGQ/SG1td/VBxbBluxhI2RlKP/8P V+P3uh9Zub4b8UcI2M3SHLnsyn3lrxtX6nl8DDqrmwgOGKm6LzP1SYk/cnBGoAVyW63YMv7vqP8WeRuE 5XJq4NZWvX4z0Ohpu4RettZRACracSm99iNjF2vZy4mZFvR9fnHKcjWJBTIq4XgDPfRemgZ5VpCabrcL dktKM73ME+xLRly2XXbOcrLInXKSJ2WJs5gRqv+j5J Gx3HSN7nCO2j2y0WJ+fLX54XW2Ya3V5q3PSCsC+y1Lq41hcTC83cJU5Fq3Ax43boNwPlESWq5LCQyhWM wOSZAxox9DjHRx/c9QMT742qG4VZhmu2l86JDdLIbhqhxi2Rcx6f/bZXb6aVW4r5N6sINUtqQ5wRJ+JU eSNaUd/YUBTFrwRGZeUd0kl8eqj9INmYPFw6dhMx9L TnYSvQt6DSpM7QEqIXValZWNsS/c9fUkSE4TTxPFklk2xOz3VMHPHdlLQcJ1i3sKMlEHV0mKLdjs4jiS DvZtz0rOxH+jf72zsFVMEjf69R8Gz3FyzR2cNppcm7JTJ5DjAI4Pgxeb1pd8iYW09zwnFVGcwmpdzZMR BFQun3sy63ajH3FDxtdmiburOjGd98wYPz0JETQokP NIY1aGNKh8ZsZFcp7JmRd6lx0v4Sf8gisj7Usw+YeJu2+PRAbmW+Frazier+327nYaXXfGQ2wD4QWdMgGzSBm [file] gbo+LP2uWEdd8oQDgG5dnbgZQ9b22bLhziOcWw+budget assistant [file] YUkhXRIbmCzSd18GBx6Zy4o1x2YIlTCMI243i93co5ZzsBdchng9vhsVQ7tYptmFOG5fB3jE2NMhX+clinical support nurse ees99qcvRuiSwUGlj0w7aouD6ky1hXAXURlv0ojbLH+s0VUbgSZ3Xf2FclX2Xp5uZsXn+/pXOkJnObOt KxxxXAuQAnD1nXftQ2idB2cIrTazZRol1ENVVa6vXL +H31Uhb68OhAq3ExxPXbtl6XEReEtpXS1CWAk6c5++xA491yzYfNq3Ahl4nOdox9viqz8VoUW03OndRZ I3s/oRE9BMoqnA8CY9qnpk5IVUNyudG0KIgouBddgg2XsucyNGxwEE7QM5bm1nKiebHleTUEHMtr2TlR hTrvXEruRT4vD+3bhIiiT+DX48d+MWBI2qPvM0ElOn 25G9Vg2AtrfmX7EKuoQTnoTwphNtO7vAK2pAHMC82e3RpNiiDK59cPgbPXJq4quFJmdLM5k9EFt/zTUX 4afEqYGQGp12OvKGV82UGH01AM21Xb5aPQQZc8q3OXID5uwB6P8Ld/UFpiJZ+Alyson/29z5e2eRtNBjcquk [file] vp analytics/kBXsigJm4/kxD41QsyjdYVVsuqHQ7HU/i7m2lm+pp2NVc2EoPbXmWVvXerVBZ2CtcoJvINTt7YWrR [file] veterinary assistant+Oi92lF5hCw0c6jrvKv1Y1fdFV0OBmBbv9t+0xS9fe+lsyvcUZCZUW+BtkKaK+9hhY/pn7ROIb8lM vqevc7C6YETpuYbvR3Twm4P22aSdLtVgmV+xiY4Xq9fYVpnOuNcy4uFT6C1kl2zZVg93lfcjsGy+VIjM pjP3aWO/I/3lP7kOHoaRU+7xbBSnvK5zjq8wwymNsl dJb7ca6FwF70z9oBIo1BDs4UcaUZUvkbiO6ud1k01UWjBECRfqFb67j8UwajCmRCYBPWmBevmyEj7kVK H39LKKxnEOrLOHcpCGeINmUVd60A2A1P/ofMacwOmdq9JDRWJCr1HohXYdjYnan/GltRv3+n8VZDIwxm w2Eebtqk2D/kgbLdH6CHoDwofjqZmTJp6nvaxChy7H H38100KKIKElVdjm1SXiD9twnKjk8UewnQAHHXO04LxvUuziuUUmRKZkusNekVXNccXpcgb2iF9skyKU MivSfYxAmoe5BFrvB8nhhfMjBy27JmEPd+y1vioMl/SFXlDhPpHlu2+DWvTnI8rRpip207X+i/yIy9TM LXznqR0H2LKApey/GuVioWXPsSsD7ml9SJz6JJWem0 q0ps88yyATKNQYwRW6WtXWYNGiUeCN5nS+hPQkH/8FWUw9VzhmTruNg/1jONBODq/KJhRLVschluGS7Q P7ZEFYxjt8khcRvCgLWz4UefdeZ3PHeUJpiY9ZEulFJMkfkz5fDfdw44sHRumB4Fm47PO7EF6pxqnaHy D8IxEp6Lhhp6KP/r4jam65pv2z4sf5fHBLpJLlIyEO SBPcu0+6SyhorCaFVnYstXXBgRVdo0jDbQedcy8LEYbU/iI2byCK4n1fKBZEnrRpaOx+PdFXb+0y+uY/ d0yzpzOUFUrITJTk4TR+70hqg8tGzuymnubRGMCXdbdF5cad1ke+RarqaeLk4Ct71K+Opho2RCFK+vpW kQgHN9InCpUD8t9Z/qmRsXknd8Usg8vlKqK+S6AUT4 Marc/ymxieDBq9+LtiU3b4HwTg+DW2srANccPSiE2crM9LFvjinNieRlE2FPxalUlwF5kMf+8Ut/S02mB [file] rRJh6MUJFhgT69sMnxV7+ByD//xo1GmbvDXpGer21Nc3rdCFwf7jugLgMyRuh5Xu4iwhKd4jotj/Y+LABORATORY DEVELOPMENT TECHNICIAN mDvF4QOUqE2UKRqtM9iTX9Cip3vgdxKYgHZBvdxkA9puuJ+7zYS6/QWW3F8xbcmkL229lAcjLBDRbVyB LT/9u9xiFXdsZs8w+iwPndhPg2kPPFoM+cPy9ExS4F txy/BAfoNJqfFi+0c0l55PhfH8fSoUdOzlilDFPsMdi8Z2XfcNxiLGxu4ZvRjp35gdpAn01AFK7v2vpc XJuJKmchlk5HZJ6rJojIsfq8YFLOp5hU/UdJPoNmzYfE4ayau3J2YRL2sf3ZWYU+zRG8wMy1wRXUvCPM tBv5RDoanBKTiXNj3/UvO+EatiIrayggnqUXRGE1qz rOk6jQSQw6Zr0dd4kJbgpETzVDzObfsloTSvmgHFX2vNKMzuOyk+PDu/cwz5y6V4YCvQ3Er83q3cBSN0 +ZqSavWdhznE+7yPQbfBiHmRgCph+rMqHGyNSUr74K/isGsX4/IrWQWH7R6LTOpUp8MMzekRpn9h1LCa 4BuPmoibHqX3+yyFJQhc7K/R9r2Phh1WDjGNIn4Kmx R1BOQTwoFK1vSreWyRYTrN+1yyRVUzLaR6yLxakCRrweza3UayPrJ3Ijq/R5Z1pDpArBog3ng55keKr/ GrolstAqVpBmt6gBUtTB+lH4K8b5XDOHiC9gsnH+E0gSZzByISFh7trAmhZ6X3YuJ0E/mSTir3MmMXX1 Chiquis+JvRvcZk5hgKNepsiTBm4l0bF88Lr8lNs6gtuHq [file] jfogPnZroUGNhfjTYotMslAZAYPlWzFVn7TjjHDnJxMA4V ID Date Data Source [id number] 03/03/2019 10:00:00 AM EST [facility] Name Value Range Interpretation Code Description Data Amparo rce(s) Supporting Document(s) [facility] RGCFPy0nUjLQQwRbUPTwQjqJQMlqKQhqPDIdQ5H1SZdjYt5FFWgoauOkLSTiFm6+ULQqUW8vyc9zNGMo gMy [file] 0o36/Fl8m/pNbhX+4KSolpTVrB7MYC3QfIUtZ0Msc3CuS0TwWmvt/1u46W+dc7dScojqEUHfRVxS/Jonathon IPH0Iujhz1eT3QO6z4PsSOzanVibcdKDg6W7IFvWYE gh9EwwJrh35dsM+wbZkRcsOhoJr3bZj5+snUqH/MOC7FA/R9RSm8HGI35sERs3YqfRcX2/IgpD3QLnT0 W9OhgWGJLFsSSyQjNY3EXASwTZdQfkpoeKljqEJfbq+4omFbVxDUFy4Bu2pL920KLz8mDxruHWa1nrWn kjW14DQ4AnVTAHmAQo6G0XDG5fUT+05UxWTJ1FKIPy wMK+twvPmVq6rWFxIc+d0AVkxJYPczrX/PcM4JF05mEpIBG5FE4tXcXUlYaYLhtXSiNtDQ17DwTLbgoN e3GyxlN17UXCmKxPCrpUof0soffOhUK/R7GSfxmyvQmw5/hUAxDZEcea5VUtr9l5q0m6sSKT/4Rrp39q 3pFLcGoXjxP5Fx7nOr7LZSqcJ1BZStCO9LOD7zwT9G clinical support nurse+Y1vh83+FRtVPzDowxVTFAbyHwab3Qc1XcMmp2+3nyEXJrm8X/sxAFWRB9gshwb6y/jvTeTlnvWT+F [file] I0C5x9GMAKErnj+Ttk4l2d41nUyrqVeDnWOmhZ5qIDBkInGFJGU03/bICDaQbbfNo43/esthetic dermatologist+Ezo/1Jzy [file] hIEaT9VN8M+MacseRh/Aisha/+9Ch+Q60nT7guc/oU/+4DBTrFC8UmcCZAlAVpJ/mJX/KyHXQm3yPgJXha bL3askgH6CnRqb4/P8U+gYZTHRe3XCliX2hiV7GooFTegb1nNse5V5LGVa71vX9G0L1u2mGqqPr+Gauri 8yeRlMdXQ156xfn/LuxRe/lfP/mA6zP9W+4G4jDCv5 G6WymYTpnGFc6/7ipfp8iRaypnMHBNG/vOb7NpWzDKw5wl4e5reDmBNti1XdQDd1OMa1q+MnjJcKN8nM 9LcN+Md706e6etXp45pWi6tnKch2n4vYIq04uNj6pQ4CihQ7sOXvvvHUC6+4cOeh1AdYCCJLvsRhE+ZV I5Ifr4Vhf8N6IN/wdCgCKcq7U3NB0N5cZ/qmTt7HHh yurpUVp+0sdsyS/6WwmzXjeO4ivGYJbfqs+hbnjz0GOdpoNBk03ClM2O/okvHzs8/lrOEfQqJ6Yu6IQA y/z/dvMueN/ZB8W5H8iSE2shljah8MJX83aZ0OG8AJCc4wOlDPb0COHx2mwUBwd0Ml3Y+QnOCzGx5w+0 iC6w47KKCdcFuaZNt80LYufIjbDHH/apTovBT9AVtg hwu6ZPCoFmCID5Y2Z5q3zbopPtWrdK9DC3XaKYmU9OkzQ7A0hhTx8TsnrNzUooSZF/FRa+s/SdqJ7jiX 3J6hm8splrViycNc19PyHxy2l4E/86HmYYv9L3UfaMirHOTSo7z7EVQn8E828QAMzftY+4fnyyZN4FCD vtWieZFR1X9kuq1lcr6JoxM3Cwp0+UKblSRJ2tNCzv mrbHWorGqu0+6xG7nPZAnxhR7nIIibYYrS9oVCgEORbjzfkcIEdOth49WvSeNRE0rSNFi1dDGTCNmwfF LafS4gs7+Sif0IooYR2HLdCijX+dy3StQs9I/F3l90zKTw82WwI86ebjFNVoaiWAZSLLvBaGFdcVL1/0 lgOG56IkFQqfAdQ4yY7dt3EyBuXNWOWVMENFJBKl5D lwNvKEsrysUDXgkGTq9WbuO1eCW/HtBaI1wlRs77toBCbntEnjGUEHE96a1eije2TF4v6FZA8rdPothI gZQseXPPnlbRLjQWECcKqcbTMv/aIWWspAjp8wmpNp0HcymzRGXZ4NMO4EebuMH+CznKYg0LC5zhE+Cigar Packing Examiner [file] BeMsbo3PrM2nGRwS0UDTGhol1pyuKs3EhvUHaC/ga/dDQ6NyXIql7Q3Fk2QmOci/LG0XdsEp3nQh/book repairer [file] +M932k+purchasing [file] ii6RCNtleIXE5dEqsO98H3274b8qQu8qJFW3yhc75e5HwSisnGhRHYZtm8ogsCZDeQAtIFmP9C/[facility] [file] oY7oW+ZXIyx+vp analytics/IHxR7zr5sWgFYmB2AkDuX8gJmAg8mZ7x8yVdUqWxfTZxoFbV9X7edgqVGDGhRblVC [file] monkey keeper+DoLdeVE6UVUHYS1itZd6z/5El6nsoaRPGMVY9DYZ305WTfEDEu/r6spbdPxbcya+zfgJkJOjNet X7lYsjqSgfW9maE8aWj1BAFVkh2kGoWikCcjFk4mMj uNshFRS0WoRzYw2hhf9PgtJ/Bbb3XRh4F+63TVR+gVq7lWTFqvhfB3idREby+9nNF22SkBSlPCXNf3Ua Sp1o7PiO338Il50mlZEpEGn6x1UC85xzfBe1HY77eO5fjb1rFZ6IA6LRcw4Jibqo1AryJd8pqfQmQR/W /mjnX2qo7XFfPJeQ1Fg64gserB8l9DAQf4ql6FJKLU XpWtWJZu5a+RpDeRxqGoiPSymCFKnXglX/7XDqswHp/rv3nRvLVP1Vgy3xqYsxjtpEgkEzrN8/5194Va efIFfDV0uDIzeX987pGKcXhdvJhQVxeVhEk9EYcmL4hlGJhQHxQle8md0I0rLLJR43Pr+4a2ediGo+Tb 83JybHk8HwUMdXsxpJ5VvKw2Ril73FixzFZ90oDsP/ wkq2jq2qps49bLqlOsZn4pO1vqeunqBf+RTqM8JeYlV8p7d8EKYq8prbOqePd77yDKxMy4Cj+6fOq7U6 k6+xeI/0QOA4Jxx97Hb+j+huK0l2LMi1heMu0ziqCkNY1iS4NEampWBt46vPvgzwgwDvGdwgpfTtroIv 71tO4ZKF85T0wu3niBedk3vxq1EtbF+9QwEl9ZSjkb KmUVvr/Phf3sbt+a0ogBLsVCP2n8sT+2C+JuvBocKqJ1haf/IrvGiUO6OtclGTpf3PzXvSXb2exHGjTd gG2kfzksuooHjIxOFmhHOL+uTonzruSzBJb7oAco9btSlkaf6paC4AUPTjg3D5y27KJczSjCAlbl8LhC yzmzeKdckc6OsIh5sSFNMeI/sSgfZMkkhnjkiwnvgn [file] ramirez/eJBi6FHApXCkuAEYOD0Nz7coJPjMjV1OXRa2HwE purchasing assistant+klC6gNiwll5unOsETnat0SaoU6kY9pwX/njtcd0AmGFahchKJfwd8bj6lrBE+aSJq9H1oSTTMoEku [file] avTIqwm37nc+k5OwhVOzH42c+7qL+Nmt+j5b7qhBm/bnVrczdvnsf+Overedge Machine Operator+9lP9YoNEmGQK9ecpNmpBnH [file] EkLzxmGqbjperfiHUTwepGrosjhO96bI3Rksihuvtwobsq6kO90HBhZ+geov154Sdl3pupneJ3ZjFUzh Grr4tK8q/LuNr5qLq+Ly4HRFxZGU6OC4s6k5g6dMAU4q6yzgBD4o20EprfXOuhOkh+eYyU7SUAsSeVYe fXItk4zn0ea4LvsICgOBive2sKZNgWO3n1kM9Qb79/ SFAmyJjSHYMFIInuGcU8ROaek2mUJB7B94eTvUcZMFotGZ1gD7m/RpQV80ugA2MAAcqnsi+4+Tk+6OjJ 9G9XsDnDBw+rLDH+LeSpI2pq52dSwAOUPnYqFUdfxh0KBXCZr09y5VS0ZpanEu1XfKkFI8/E4hRuXbHF THudfOGwHgOJGqrl0NQq+Tour Counselor+eCMd3yrL1FXLGkkrJ ny71zBP7LoWP71P4G2M6d78pmcgHFV6/laKMP3fcaYP+ZsGbPDpcuYuthBZKFuZiex7rTF9XOxFj3aC0 Chalino+/4MJ1iRTCiy03ndhvknuZujug09A17xHNAyTpWsxf/qBXMEgDoKkZNJGKb2DoclXRD78TFhtddQg onJ7uhNZ8XMmBcAxRxXq4a1WITEcM8LE0oad7NuBI8 9POeYNhOKId8b9ARG8J4MZBQsPrni9KTE9s+HTDrlQfOnTJNpkZTaAuBoq68QRi+e1VyOs8abHkB5vFg 252a9I1Al37nCThzxAZuY3Suf4zp/EdSEzAPOR3SmJcE1O725XgjwCCg8NnIAG28jr3zz9sq4UzQm4Gr S+IvbGq4DY1qVu7BMO3sjDaHFKCs7NvcRmwmeWMWAp 9QfqNmIg3hC5pksiEd3QArCMuAqJvG8xHzJau2zxIdY9E7u9aAJShuhBivz9fcyWQSOgLWbnoC1ibZA9 5yltgOTJI9I9kSn8TPTf9AbtrKY8eJjjATmIsa20p79sXRAb1tMoxoN1D5H5KVwWano/OkiKEd+8Q7wW pj6upB6QbiGByAsGS7A0mxjspk0fm8HpMtuAi0Xa/5 qekyYf+2D8XXMq33e4G8SP2pX8tF82neq7r6Gk8zGAO9vIjPd2IJ0/je0Q/2L8lBuXm4xta9f/CH06yG Cx09B+vQ7OrBzVVgN/UOXV32SRt5JAxQsiVOX51zC50OyhNSj5hrJkOmJYcRgEi/X4jyyQZrTU4QR9v7 FScQVxxf+y8K1GfuKV907bCpuruIdbd6SZ306Rx7xK 4f6dGfroUATUqiSvIxhLUkRLWUKqekH0evGFP7de2gCBKlvuebQNejOVbCjmEzbDf9eqxJia7759crrW LANGLEY/YKZfJ+JEA4NUm1eVyjF3yWcX3fO0qlg1jCf6qyK/SfDfzfC+/AEEIHSxJEnJCHt/GsFB0ywYBeZbz [file] z/Gallardo+89ujD+zUTK+8g0PqVDFQ99gB+3ihSeoIhbC7i9UG+b6K/EMUg0/cJlFr7gEn6WkQkxjgF4tg4m2 cAFtZsJZJT9AguqL+5Z6NlV/bzswmA21fxe5Pn2Pfu hBY+v6nm0R2Wc9KdzuAdfzYfoeVG7fjF3qPbZoAl/p0+dmCg3AxY4WoLzHG4wXjZjnqDHWy70bK+/Aníbal [file] OaFjXCQ6sfIirE4VCE4cu5VpBA6Hm3BujhY1zaKrIFn0Ldh0IBRCGhFtQU3L ID Date Data Source [id number] 03/03/2019 09:41:23 AM EST [facility] INFORMATIONPatient MRN Name Date of Age Gend*PT [id number] Vivian Bennett 1970 48 years F ---PT Location Admission Date/Time Visit ID Attending Provider --- --- --- --- EPI ID CSN Admitting Provider [id number] ---02/26/19 Vivian Bennett [id number] female 48 yearsGail Shauna Bennett is referred by Sheela Berrios for abdominal wall hernia.Patient is seen with her family present. I discussed CT findings with her. Inaddition to the multiple incisional hernias, she has thickening of her sigmoidcolon for which radiology has recommended colonoscopic evaluation. Patientdenies a family history of colon cancer. Has no lower abdominal pain that Icould attribute to any significant obstruction of the sigmoid colon. Denieshematochezia.CT ABDOMEN/PELVIS 01/21/19:IMPRESSION:1. Small fat containing ventral hernias inferior to the umbilicus measuring upto 3.1 cm diameter. Adjacent fat stranding is nonspecific. There is no fluidcollection or free air.2. Moderate length mucosal thickening of the sigmoid colon warrants colonoscopyevaluation. Diffuse diverticulosis noted without acute diverticulitis.3. Infrarenal abdominal aortic aneurysm measuring 3 cm maximal diameter similarto recent ultrasound findings.Current Meds: No current outpatient medications on file.Allergies: Allergies not on fileNo past medical history on file.No family history on file. Social HistorySocioeconomic History Marital status: Not on file Spouse name: Not on file Number of children: Not on file Years of education: Not on file Highest education level: Not on fileOccupational History Not on fileSocial Needs Financial resource strain: Not on file Food insecurity: Worry: Not on file Inability: Not on file Transportation needs: Medical: Not on file Non-medical: Not on fileTobacco Use Smoking status: Not on fileSubstance and Sexual Activity Alcohol use: Not on file Drug use: Not on file Sexual activity: Not on fileLifestyle Physical activity: Days per week: Not on file Minutes per session: Not on file Stress: Not on fileRelationships Social connections: Talks on phone: Not on file Gets together: Not on file Attends caodaism service: Not on file Active member of club or organization: Not on file Attends meetings of clubs or organizations: Not on file Relation ship status: Not on file Intimate partner violence: Fear of current or ex partner: Not on file Emotionally abused: Not on file Physically abused: Not on file Forced sexual activity: Not on fileOther Topics Concern Not on fileSocial History Narrative Not on fileNo past surgical history on file.Review of SystemsReview of SystemsConstitutional: Negative.HENT: Negative.Eyes: Negative.Respiratory: Negative.Cardiovascular: Negative.Gastrointestinal: Negative.Endocrine: Negative.Genitourinary: Negative.Musculoskeletal: Negative.Skin: Negative.Allergic/Immunologic: Negative.Neurological: Negative.Hematological: Negative.Psychiatric/Behavioral: NegativeThere were no vitals filed for this visit.Exam:Const:Head/Face:Eyes:ENMT:Neck:Resp:CV:Abdomen: Patient has multiple incisional hernias. Her incision extends fromxiphoid to pubis through which her abdominal aorta was repaired. Currentlynontender.Musculo: Upper Extremities:Lower Extremities:Skin: Neuro:Assessment/Plan: I believe we can set her hernias aside for the present time. Lori arranged for her to be seen by gastroenterology today to set upcolonoscopy. We will contact her after colonoscopy has been performed Name Value Range Interpretation Code Description Data Amparo rce(s) Supporting Document(s) Procedure Social History Code Duration Value Status Description Data Source(s ) Smoking 03/01/2020 12:00:00 AM EST Former Smoker completed [facility] Smoking 03/01/2020 12:00:00 AM EST Former Smoker completed Former Smoker e[facility] ([facility]) Smoking 01/29/2020 12:00:00 AM EST Former Smoker completed Former Smoker eCW1 ([facility]) Smoking 01/29/2020 12:00:00 AM EST Former Smoker completed Former Smoker eCW1 ([facility]) Smoking 11/17/2019 12:00:00 AM EDT Patient is a former smoker completed Patient is a former smoker MEDENT ([facility], ) Smoking 07/02/2019 12:00:00 AM EDT Former Smoker completed Former Smoker eCW[facility] ([facility]) Smoking 07/02/2019 12:00:00 AM EDT Former Smoker completed Former Smoker eCW1 ([facility]) Smoking 07/02/2019 12:00:00 AM EDT Former Smoker completed Former Smoker eCW1 ([facility]) Smoking 07/02/2019 12:00:00 AM EDT Former Smoker completed Former Smoker eCW1 ([facility]) Alcohol intake 04/08/2019 12:00:00 AM EST Yes completed [facility] Cigarette pack-years 04/08/2019 12:00:00 AM EST UNK completed [facility] Cigarettes smoked current (pack per day) - Reported 04/08/19 12:00:00 AM EST UNK completed [facility] Smoking 04/08/2019 12:00:00 AM EST Former smoker completed Former smoker [facility] Alcohol intake 03/31/2019 12:00:00 AM EST Yes completed [facility] Cigarette pack-years 03/31/2019 12:00:00 AM EST UNK completed [facility] Cigarettes smoked current (pack per day) - Reported 03/31/19 12:00:00 AM EST UNK completed [facility] Smoking 03/31/2019 12:00:00 AM EST Former smoker completed Former smoker [facility] Vital Signs ID Date Data Source UNK Name Value Range Interpretation Code Description Data Source(s) Diastolic blood pressure 48 mm[Hg] 48 mm[Hg] [facility] Systolic blood pressure 88 mm[Hg] 88 mm[Hg] e CW1 ([facility]) Body temperature 98.7 [degF] 98.7 [degF] eCW1 ( [facility]) Respiratory rate 18 /min 18 /min eCW1 ([facility]) Heart rate 60 /min 60 /min eCW1 ([facility]) Body mass index (BMI) [Ratio] 23.82 kg/m2 23.82 kg/m2 eCW1 ([facility]) Body height 60 [in_i] 60 [in_i] eCW1 ([facility]) Body weight 122 [lb_av] 122 [lb_av] eCW1 ([facility]) Diastolic blood pressure 82 mm[Hg] 82 mm[Hg] eCW1 ([facility]) Systolic blood pressure 148 mm[Hg] 148 mm[Hg] e CW1 ([facility]) Body temperature 98.1 [degF] 98.1 [degF] eCW1 ( [facility]) Respiratory rate 18 /min 18 /min eCW1 ([facility]) Heart rate 80 /min 80 /min eCW1 ([facility]) Body mass index (BMI) [Ratio] 25.66 kg/m2 25.66 kg/m2 eCW1 ([facility]) Body height 60 [in_i] 60 [in_i] eCW1 ([facility]) Body weight 131.4 [lb_av] 131.4 [lb_av] eCW1 ([facility]) Body weight 62.654 kg 62.654 kg MEDENT ([facility], ) [place] body weight 105 [lb_av] 105 [lb_av] MEDEN T ([facility], ) Body mass index (BMI) [Ratio] 26.1 kg/m2 26.1 k g/m2 MEDENT ([facility], ) Body weight 138.12 [lb_av] 138.12 [lb_av] MEDEN T ([facility], ) Body height 61 [in_i] 61 [in_i] MEDENT ([facility], ) 5'1" Diastolic blood pressure 66 mm[Hg] 66 mm[Hg] MEDENT ([facility]) Systolic blood pressure 122 mm[Hg] 122 mm[Hg] [facility] Body weight 61.463 kg 61.463 kg [facility] ([facility]) [place] body weight 105 [lb_av] 105 [lb_av] MEDEN T ([facility]) Body mass index (BMI) [Ratio] 25.6 kg/m2 25.6 k g/m2 [facility] ([facility]) Body weight 135.50 [lb_av] 135.50 [lb_av] MEDEN T ([facility]) Body height 61 [in_i] 61 [in_i] [facility] ([facility]) 5'1" Diastolic blood pressure 62 mm[Hg] 62 mm[Hg] [facility] ([facility]) Systolic blood pressure 126 mm[Hg] 126 mm[Hg] [facility] ([facility]) Body weight 61.916 kg 61.916 kg [facility] ([facility]) Body mass index (BMI) [Ratio] 25.8 kg/m2 25.8 k g/m2 [facility] ([facility]) Body weight 136.50 [lb_av] 136.50 [lb_av] MEDEN T ([facility]) Body height 61 [in_i] 61 [in_i] [facility] ([facility]) 5'1" Diastolic blood pressure 80 mm[Hg] 80 mm[Hg] [facility] ([facility]) left 86/62 Systolic blood pressure 130 mm[Hg] 130 mm[Hg] [facility] left 86/62 Body height 61 [in_i] 61 [in_i] [facility] ([facility]) 5'1" Diastolic blood pressure 81 mm[Hg] 81 mm[Hg] [facility] ([facility]) Systolic blood pressure 150 mm[Hg] 150 mm[Hg] [facility] ([facility]) Body weight 64.865 kg 64.865 kg [facility] ([facility]) Body mass index (BMI) [Ratio] 27.0 kg/m2 27.0 k g/m2 MEDENT ([facility], ) Body weight 143.00 [lb_av] 143.00 [lb_av] MEDEN T ([facility], ) Diastolic blood pressure 82 mm[Hg] 82 mm[Hg] eCW1 [facility]) Systolic blood pressure 126 mm[Hg] 126 mm[Hg] e CW1 ([facility]) Body temperature 96.7 [degF] 96.7 [degF] eCW1 ( [facility]) Respiratory rate 18 /min 18 /min eCW1 ([facility]) Heart rate 91 /min 91 /min eCW1 ([facility]) Body mass index (BMI) [Ratio] 29.45 kg/m2 29.45 kg/m2 W1 ([facility]) Body height 60 [in_us] 60 [in_us] eCW1 ([facility]) Body weight Measured 150.8 [lb_av] 150.8 [lb_av ] eCW1 ([facility]) Oxygen saturation in Arterial blood by Pulse oximetry 95 % 95 % [facility] Respiratory rate 18 /min 18 /min [facility] Body temperature 36.67 Geeta 36.67 Geeta [facility] Heart rate 72 /min 72 /min [facility] Diastolic blood pressure 74 mm[Hg] 74 mm[Hg] [facility] Systolic blood pressure 116 mm[Hg] 116 mm[Hg] [facility] Body mass index (BMI) [Ratio] 27.44 kg/m2 27.44 kg/m2 [facility] Body weight 68.04 kg 68.04 kg [facility] Body height 157.5 cm 157.5 cm [facility] Diastolic blood pressure 76 mm[Hg] 76 mm[Hg] eCW1 [facility] Systolic blood pressure 124 mm[Hg] 124 mm[Hg] e CW1 ([facility]) Body temperature 98.4 [degF] 98.4 [degF] eCW1 ( [facility]) Respiratory rate 18 /min 18 /min eCW1 ([facility]) Heart rate 82 /min 82 /min eCW1 ([facility]) Body mass index (BMI) [Ratio] 30.35 kg/m2 30.35 kg/m2 eCW1 ([facility]) Body height 60 [in_us] 60 [in_us] eCW1 ([facility]) Body weight Measured 155.4 [lb_av] 155.4 [lb_av ] eCW1 ([facility]) Oxygen saturation in Arterial blood by Pulse oximetry 94 % 94 % [facility] Body mass index (BMI) [Ratio] 28.88 kg/m2 28.88 kg/m2 [facility] Body weight 71.623 kg 71.623 kg [facility] Body height 157.5 cm 157.5 cm [facility] Heart rate 80 /min 80 /min [facility] Diastolic blood pressure 72 mm[Hg] 72 mm[Hg] [facility] Systolic blood pressure 124 mm[Hg] 124 mm[Hg] [facility] Diastolic blood pressure 70 mm[Hg] 70 mm[Hg] eCW1 ([facility]) Systolic blood pressure 130 mm[Hg] 130 mm[Hg] e CW1 ([facility]) Body temperature 97.7 [degF] 97.7 [degF] eCW1 ( [facility]) Respiratory rate 18 /min 18 /min eCW1 ([facility]) Heart rate 83 /min 83 /min eCW1 ([facility]) Body mass index (BMI) [Ratio] 30.66 kg/m2 30.66 kg/m2 W1 ([facility]) Body height 60 [in_us] 60 [in_us] [facility] [facility], [facility]) Body weight Measured 157 [lb_av] 157 [lb_av] [facility]C [facility] Body weight 71.669 kg 71.669 kg [facility] ([facility]) Body mass index (BMI) [Ratio] 29.9 kg/m2 29.9 k g/m2 [facility] ([facility]) Body weight 158.00 [lb_av] 158.00 [facility]lb_av] [facility] Body height 61 [in_i] 61 [in_i] [facility] ([facility]) 5'1" Diastolic blood pressure 78 mm[Hg] 78 mm[Hg] [facility] ([facility]) Systolic blood pressure 90 mm[Hg] 90 mm[Hg] [facility] ([facility]) Body weight 73.030 kg 73.030 kg [facility] ([facility]) Body mass index (BMI) [Ratio] 30.4 kg/m2 30.4 k g/m2 [facility] ([facility]) Body weight 161.00 [lb_av] 161.00 [lb_av] [facility] Body height 61 [in_i] 61 [in_i] [facility] ([facility]) 5'1" Diastolic blood pressure 82 mm[Hg] 82 mm[Hg] [facility] ([facility]) Systolic blood pressure 124 mm[Hg] 124 mm[Hg] [facility] ([facility]) Patient Treatment Plan of Care Planned Activity Planned Date Details Description Data Source (s) Albuterol Sulfate HFA 108 (90 Base) MCG/ACT 01/14/2020 12:00:00 AM EST [facility] ([facility]) Albuterol Sulfate HFA 108 (90 Base) MCG/ACT 01/14/2020 12:00:00 AM EST [facility] ([facility]) BuPROPion HCl ER (Smoking Det) 150 MG 06/15/2019 12:00:00 AM EDT eCW1 ([facility]) Acetaminophen 325 MG / Oxycodone Hydrochloride 5 MG Or al Tablet 04/10/2019 12:00:00 AM EST [facility] pantoprazole 40 MG Delayed Release Oral Tablet 04/02/2019 12:00:00 AM EST eCW1 ([facility]) Drisdol 1.25 MG (64423 UT) 03/09/2019 12:00:00 AM EST eCW1 ([facility]) Simvastatin 40 MG Oral Tablet 02/13/2019 12:00:00 AM EST [facility] clopidogrel 75 MG Oral Tablet 02/13/2019 12:00:00 AM EST [facility] Aspirin 81 MG Delayed Release Oral Tablet 02/13/2019 12:00:00 AM ES T [facility]
--- NOTE | 2020-03-09 13:44 | REP ---
INDICATION: Abdominal Pain COMPARISON: 07/11/2017 as well as other prior exams. TECHNIQUE: PA/Lateral FINDINGS: Lungs: Clear, no infiltrate. Heart: Normal in size. Mediastinum: Mediastinal silhouette unremarkable. Pleural angles: Unremarkable.. Bones and soft tissues: There are degenerative changes of the spine without compression deformity. There are couple of old healed lower left rib fractures. IMPRESSION: No acute pulmonary disease. <Electronically signed by Leif Coleman > 03/09/20 [id number]
--- OUTSIDE RECORDS SUMMARY | 2020-03-09 13:52 | CCD ---
Author Author [facility] Address Unknown Phone Unavailable Care Team Providers Care Dye Tub Tender Name Role Phone Sara Kennedy MD Unavailable [...] Brandon Gutierrez MD Unavailable Unavailable Dentes, Brandon Guteirrez MD Unavailable Unavailable Dentes, Brandon Gutierrez MD [...] MAINI, VANNESSA MD Unavailable Unavailable Brandon Frias FIELD GEOLOGIST, CNM Unavailable Unavailable Brandon Frias FIELD GEOLOGIST, CNM Unavailable Unavailable Brandon Frias FIELD GEOLOGIST, CNM Unavailable Unavailable Frias, M Ana FIELD GEOLOGIST, CNM Unavailable Unavailable Frias, M Ana FIELD GEOLOGIST, CNM Unavailable Unavailable Frias, M Ana FIELD GEOLOGIST, CNM Unavailable Unavailable Frias, M Ana FIELD GEOLOGIST, CNM Unavailable Unavailable Frias, M Ana FIELD GEOLOGIST, CNM Unavailable Unavailable Frias, M Ana FIELD GEOLOGIST, CNM Unavailable Unavailable Frias, M Ana FIELD GEOLOGIST, CNM Unavailable Unavailable Frias, M Ana FIELD GEOLOGIST, CNM Unavailable Unavailable Frias, M Ana FIELD GEOLOGIST, CNM Unavailable Unavailable Frias, M Ana FIELD GEOLOGIST, CNM Unavailable Unavailable Frias, M Ana FIELD GEOLOGIST, CNM Unavailable Unavailable Frias, M Ana FIELD GEOLOGIST, CNM Unavailable Unavailable Frias, M Ana FIELD GEOLOGIST, CNM Unavailable Unavailable Frias, M Ana FIELD GEOLOGIST, CNM Unavailable Unavailable Frias, M Ana FIELD GEOLOGIST, CNM Unavailable Unavailable Frias, M Ana FIELD GEOLOGIST, CNM Unavailable Unavailable Frias, M Ana FIELD GEOLOGIST, CNM Unavailable Unavailable Frias, M Ana FIELD GEOLOGIST, CNM Unavailable Unavailable Frias, M Ana FIELD GEOLOGIST, CNM Unavailable Unavailable Frias, M Ana FIELD GEOLOGIST, CNM Unavailable Unavailable Frias, M Ana FIELD GEOLOGIST, CNM Unavailable Unavailable Frias, M Ana FIELD GEOLOGIST, CNM Unavailable Unavailable Frias, M Ana FIELD GEOLOGIST, CNM Unavailable Unavailable Frias, M Ana FIELD GEOLOGIST, CNM Unavailable Unavailable Frias, M Ana FIELD GEOLOGIST, CNM Unavailable Unavailable Frias, M Ana FIELD GEOLOGIST, CNM Unavailable Unavailable Frias, M Ana FIELD GEOLOGIST, CNM Unavailable Unavailable Frias, M Ana FIELD GEOLOGIST, CNM Unavailable Unavailable Frias, M Ana FIELD GEOLOGIST, CNM Unavailable Unavailable Frias, M Ana FIELD GEOLOGIST, CNM Unavailable Unavailable SEMEL, Jinny NGO MD Unavailable Unavailable SEMEL, Jinny NGO MD Unavailable Unavailable SEMEL, Jinny NGO MD Unavailable Unavailable SEMEL, Jinny NGO MD Unavailable Unavailable SEMEL, Jinny NGO MD Unavailable Unavailable SEMEL, Jinny NGO MD Unavailable Unavailable SEMEL, Jinny NGO MD Unavailable Unavailable SEMEL, Jinny NOG MD Unavailable Unavailable SEMEL, Jinny NGO MD [...] A JENI CHEN Unavailable Unavailable SEMEL, A JNEI CHEN Unavailable Unavailable SEMEL, A JNEI CHEN Unavailable Unavailable SEMEL, A JENI CHEN [...] is protected by Article 27-F of the [facility] Public Health law. If you continue you may have access to information: Regarding HIV / AIDS; Provided by facilities licensed or operated by the [facility] Office of Mental Health; or Provided by the [facility] Office for People With Developmental Disabilities. If such information is present, then the following [facility] mandated warning applies: This information has been [...] law may result in a fine or halfway sentence or both. A general authorization for the release of medical or other information is NOT sufficient authorization for further disc losure. Allergies and Adverse Reactions Type Description Substance Reaction Status Data Source(s ) Propensity to adverse reactions NICKEL nickel sulfate Active [facility] Family History Family Member Name Family Member Gender Family Member Status Date o f Status Description Data Source(s) Unknown Unknown Problem MEDENT ([facility]) Encounters Encounter Providers Location Date Indications Data Source(s ) Unknown [address] [facility] [place] [address] 03/03/2020 12:00:00 AM EST eCW1 ([facility]) Outpatient [address] [facility] [place] [address] 03/01/2020 12:00:00 AM EST [facility] Unknown [address] [facility] [address] [place] [address] 02/16/2020 12:00:00 AM EST [facility] Outpatient [address] [facility] [place] [address] 01/29/2020 12:00:00 AM EST eCW1 ([facility]) Unknown [address] [facility] [place] [address] 01/27/2020 12:00:00 AM EST eCW1 ([facility]) Unknown [address] [facility] [place] [address] 01/12/2020 12:00:00 AM EST eCW1 ([facility]) [place] [address] [facility] [address] [place] [address] 12/15/2019 12:00:00 AM EDT eCW1 ([facility]) Outpatient Attender: Chaya Sewell/Jhonathan/Wesly/ Reindl 10/19/2019 03:45:00 PM EDT MEDENT ([facility]) Outpatient Referrer: Ana Frias FIELD GEOLOGIST, CN 08/07/2019 06:38 :00 AM EDT [facility] [place] [address] [facility] [place] [address] 08/06/2019 12:00:00 AM EDT eCW1 ([facility]) Outpatient Attender: Shannan Grier MD [id number] 08/04/2019 12:00:0 0 AM EDT [facility] Outpatient Attender: Madiha Sewell/Jhonathan/Wesly/R eindl 08/03/2019 09:30:00 AM EDT MEDENT ([facility]) [place] [address] [facility] [place] [address] 07/02/2019 12:00:00 AM EDT eCW1 ([facility]) [facility] [place] [address] [facility] [place] [address] 06/15/2019 12:00:00 AM EDT eCW1 ([facility]) [facility] [place] [address] [facility] [place] [address] 06/10/2019 12:00:00 AM EDT eCW1 ([facility]) Outpatient Attender: Shannan Grier MD [id number] 020 12:00:00 AM EDT - 05/05/2019 11:45:48 AM EDT [facility] Outpatient Attender: KEYANNA CHRISTIAN [id number] 04/17/2019 12:00:00 AM EST - 04/17/2019 02:55:59 PM [facility] Inpatient Attender: Shannan Grier MDAdmi tter: VANNESSA MARSHALL MDReferrer: Shannan Grier MD [id number] 04/07/2019 09:45:00 AM EST - 04/10/2019 05:37:00 PM [facility] Patient discharged. [facility] Tiwari [address] [place] [address] 04/02/2019 12:00:00 AM EST eCW1 ([facility]) Outpatient Attender: Shannan Grier MDReferrer: Shannan Grier MD MOB-MOB.PAT 03/31/2019 12:00:00 AM EST - 03/31/2019 01:42:47 PM [facility] Outpatient Attender: Shannan Grier MD [id number] 12:00:00 AM EST - 03/24/2019 09:22:32 AM [facility] Referrer: JENI VALDES MD 03/19/2019 08:20:01 PM EST [facility] Referrer: JENI VALDES MD 03/19/2019 08:20:01 PM EST [facility] Referrer: JENI VALDES MD 03/19/2019 08:20:01 PM EST [facility] [address] [address] 03/09/2019 12:00:00 AM EST eCW1 ([facility]) Outpatient Attender: Shannan Grier MD [id number] 020 12:00:00 AM EST - 03/03/2019 09:46:25 AM EST [facility] Tiwari [address] [place] [address], [facility] [address] 02/13/2019 12:00:00 AM EST eCW1 ([facility]) [address] [place] [address] 02/09/2019 12:00:00 AM EST eCW1 ([facility]) Outpatient Referrer: Ana Frias FIELD GEOLOGIST, CNM 02/05/2019 09:08 :00 PM EST [facility] Outpatient Attender: FOZIA Sewell/Jhonathan/Wesly/Lenore indl 01/14/2019 08:00:00 AM EST MEDENT ([facility]) Immunizations Vaccine Date Status Description Data Source(s) influenza, recombinant, quadrIvalent,injectable, prese rvative free 01/29/2020 04:36:00 PM EST completed eCW1 ([facility]) influenza, recombinant, quadrIvalent,injectable, prese rvative free 01/29/2020 04:36:00 PM EST completed eCW1 ([facility]) influenza, recombinant, quadrIvalent,injectable, prese rvative free 01/29/2020 04:36:00 PM EST completed eCW1 ([facility]) influenza, recombinant, quadrIvalent,injectable, prese rvative free 01/29/2020 04:36:00 PM EST completed eCW1 ([facility]) Medications Medication Brand Name Start Date Product [...] Sulfate HFA 108 (90 Base) MCG/ACT eCW1 ([facility]) Albuterol Sulfate HFA 108 (90 Base) MCG/ACT Albuterol Sulfate HFA 108 (90 Base) MCG/ACT 01/14/2020 12:00:00 AM EST 1.0 {puff_as_needed} active Albuterol Sulfate HFA 108 (90 Base) MCG/ACT eCW1 ([facility]) Albuterol Sulfate HFA 108 (90 Base) MCG/ACT Albuterol Sulfate HFA 108 (90 Base) MCG/ACT 01/14/2020 12:00:00 AM EST 1.0 {puff_as_needed} active Albuterol Sulfate HFA 108 (90 Base) MCG/ACT eCW1 ([facility]) Albuterol Sulfate HFA 108 (90 Base) MCG/ACT Albuterol Sulfate HFA 108 (90 Base) MCG/ACT 01/14/2020 12:00:00 AM EST 1.0 {puff_as_needed} active Albuterol Sulfate HFA 108 (90 Base) MCG/ACT eCW1 ([facility]) Albuterol Sulfate HFA 108 (90 Base) MCG/ACT Albuterol Sulfate HFA 108 (90 Base) MCG/ACT 01/14/2020 12:00:00 AM EST 1.0 {puff_as_needed} active Albuterol Sulfate HFA 108 (90 Base) MCG/ACT eCW1 ([facility]) Albuterol Sulfate HFA 108 (90 Base) MCG/ACT Albuterol Sulfate HFA 108 (90 Base) MCG/ACT 01/14/2020 12:00:00 AM EST 1.0 {puff_as_needed} active Albuterol Sulfate HFA 108 (90 Base) MCG/ACT eCW1 ([facility]) 40 mg 12/15/2019 12:00:00 AM EDT [...] active 1 tablet in the morning eCW1 ([facility]) 150 mg 06/15/2019 12:00:00 AM EDT tablet extended release 12 hr 30 TAKE ONE TABLET BY MOUTH EVERY MORNING TAKE ONE TABLET BY MOUTH EVERY MORNING SOLD: 06/19/2019 [facility] [id number] 0.3 ML Epinephrine 1 MG/ML Auto-Injector EPINEPHRI [...] TABLET BY MOUTH EVERY DAY SOLD: 05/29/2019 [facility] 5-325 mg 04/17/2019 12:00:00 AM EST [...] MAXIMUM DAILY DOSE = 4 SOLD: 04/14/2019 [facility] 5-325 mg 04/12/2019 12:00:00 AM EST tablet 10 TAKE 1 TABLET BY MOUTH EVERY 6 HOURS NEEDED MAXIMUM DAILY DOSE = 4 TABLETS TAKE 1 TABLET BY MOUTH EVERY 6 HOURS NEEDED MAXIMUM DAILY DOSE = 4 TABLETS SOLD: 04/12/2019 [facility] Acetaminophen 325 MG / Oxycodone Hydroch loride 5 MG Oral Tablet oxyCODONE- acetaminophen (PERCOCET) 5-325 MG per tablet oxyCODONE-acetaminophen (PERCOCET) 5-325 MG per tablet 04/10/2019 12:00:00 AM EST 1 {tbl} Oral active Take 1 tablet by mouth every 6 (six) hours as needed Max Daily Amount: 4 tablets [facility] 5-325 mg 04/10/2019 12:00:00 AM EST tablet 5 TAKE 1 TABLET BY MOUTH EVERY 6 HOURS NEEDED FOR PAIN MAXIMUM DAILY DOSE = 4 TABLETS TAKE 1 TABLET BY MOUTH EVERY 6 HOURS NEEDED FOR PAIN MAXIMUM DAILY DOSE = 4 TABLETS SOLD: 04/11/2019 [facility] morphine PICKLE PROCESSOR 1 mg/mL 04/09/2019 02:00:00 PM EST Intraven ous aborted Intravenous, Continuous, Starting Gosia 04/09/19 at 1400, For 122 hours, Post-op [facility] Medication administered onsite Magnesium Hydroxide 80 MG/ML Oral Suspen pb magnesium hydroxide (MILK OF MAGNESIA) 400 MG/5ML suspension 30 mL magnesium hydroxide (MILK OF MAGNESIA) 4 00 MG/5ML suspension 30 mL 04/09/2019 07:31:23 AM EST 30 mL Oral active 30 mL, Oral, Daily PRN, constipation, Starting Gosia 04/09/19 at 0731
Give one dose this am
[facility] Medication administered onsite Docusate Sodium 100 MG Oral Capsule docusate sodium (C OLACE) capsule 100 mg docusate sodium (COLACE) capsule 100 mg 04/08/2019 09:00:00 PM EST 100 mg Oral active 100 mg, Oral, 2 times daily, First dose on Sat04/08/19 at 2100
hold for loose stools
[facility] Medication administered onsite clopidogrel 75 MG Oral Tablet clopidogrel (PLAVIX) tab let 75 mg clopidogrel (PLAVIX) tablet 75 mg 04/08/2019 05:00:00 PM EST 75 mg Oral active 75 mg, Oral, Daily, First dose on Sat04/08/19 at 1700 [facility] Medication administered onsite Simvastatin 40 MG Oral Tablet simvastatin (ZOCOR) tabl et 40 mg simvastatin (ZOCOR) tablet 40 mg 04/08/2019 05:00:00 PM EST 40 mg Oral active 40 mg, Oral, Daily, First dose on Sat04/08/19 at 1700 [facility] Medication administered onsite Aspirin 81 MG Delayed Release Oral Tablet aspirin EC t ablet 81 mg aspirin EC tablet 81 mg 04/08/2019 05:00:00 PM EST 81 mg Oral activ e 81 mg, Oral, Daily, First dose on Sat04/08/19 at 1700 [facility] Medication administered onsite Sertraline 100 MG Oral Tablet sertraline (ZOLOFT) tabl et 100 mg sertraline (ZOLOFT) tablet 100 mg 04/08/2019 05:00:00 PM EST 100 mg Oral active 100 mg, Oral, Daily, First dose on Sat04/08/19 at 1700 [facility] Medication administered onsite pantoprazole 40 MG Delayed Release Oral Tablet pantoprazole (PROTONIX) EC tablet 40 mg pantoprazole (PROTONIX) EC tablet 40 mg 04/08/2019 05:00:[address] 40 mg Oral active Gastroesophageal Reflux Diseas e 40 mg, Oral, Daily, Indications: Gastroesophageal Reflux Disease, First dose on Sat04/08/19 at 1700 [facility] Gastroesophageal Reflux Disease Medication administered onsite morphine PICKLE PROCESSOR 1 mg/mL 04/08/2019 12:00:00 AM EST Intraven ous aborted Intravenous, Continuous, Starting Sat04/08/19 at 0000, For 161 hours, Post-op [facility] Medication administered onsite normal saline flush 0.9 % injection 3 mL [id number] 04/07/2019 10:00:00 PM EST 3 mL Intravenous active 3 mL , Intravenous, PROTOCOL, First dose on Sat04/07/19 at 2200, Post-op
flush per protocol, D/C Main IV fluid if appropriate
[facility] Medication administered onsite morphine 1 mg/ml PICKLE PROCESSOR bolus 4 mg [id number] 04/07/2019 06:00:[address] 4 mg Intravenous completed 4 mg, Intrave nous, Once, Sat04/07/19 at 1800, For 1 dose [facility] Medication administered onsite Acetaminophen 325 MG Oral Tablet acetaminophen (TYLENO L) 325 MG tablet 975 mg acetaminophen (TYLENOL) 325 MG tablet 975 mg 04/07/2019 04:00:00 PM EST 975 mg Oral completed 975 mg, Or al, Once, Sat04/07/19 at 1600, For 1 dose, PACU (only)
"Maximum dose of acetaminophen is 4,000 mg from all sources in 24 hours."
[facility] Medication administered onsite morphine PICKLE PROCESSOR 1 mg/mL 04/07/2019 04:00:00 PM EST Intraven ous aborted Intravenous, Continuous, Starting Sat04/07/19 at 1600, For 7 days, Post-op [facility] Medication administered onsite cefazolin (ANCEF) injection 2 g 04/07/2019 04:00:00 PM EST 2 g Intravenous completed Perioperative Pharmacoprophylaxis 2 g, Intravenous, Administer over 6 Minutes, Every 8 hours (relative), First dose on Sat04/07/19 at 1600, For 48 hours
RN may administer IV push or infuse this medication through syringe adapter set ref [id number]. Flush line after use
[facility] Perioperative Pharmacoprophylaxis Medication administered onsite dextrose 5 % and sodium chloride 0.45 % infusion 0013-4013-0 0 04/07/2019 04:00:00 PM EST Intravenous active at 30 mL/hr, Intravenous, Continuous, Starting Sat04/07/19 at 1600, Post-op
Hep lock with good PO
[facility] Medication administered onsite Acetaminophen 325 MG Oral Tablet acetaminophen (TYLENO L) 325 MG tablet 650 mg acetaminophen (TYLENOL) 325 MG tablet 650 mg 04/07/2019 04:00:00 PM EST 650 mg Oral active 650 mg, Or al, Every 6 hours (relative), First dose on Sat04/07/19 at 1600, Post-op
"Maximum dose of acetaminophen is 4,000 mg from all sources in 24 hours."
[facility] Medication administered onsite heparin (porcine) injection 5,000 Units [id number] 04/07/19 04:00:00 PM EST 5000 U Subcutaneous active 5,000 Units , Subcutaneous, Every 8 hours (scheduled), First dose on Sat04/07/19 at 1600, Post-op
If platelet count is less than 100,000 or hematocrit is less than 25, or if there is a 5 point decrea se in hematocrit, do not give the dose and call physician/designee.
[facility] Medication administered onsite Acetaminophen 325 MG / Oxycodone Hydroch loride 5 MG Oral Tablet oxyCODONE- acetaminophen (PERCOCET) 5-325 MG 1-2 tablet oxyCODONE-acetaminophen (PERCOCET) 5-325 MG 1-2 tablet 04/07/2019 03:36:50 PM EST Oral active 1-2 tablet, Oral, Every 4 hours PRN, moderate pain (4-6), severe pain (7-10), Starting Sat04/07/19 at 1536, For 7 days, Post-op [facility] Medication administered onsite ondansetron (ZOFRAN) injection 4 mg [id number] 04/07/2019 03:36:5 0 PM EST 4 mg Intravenous active 4 mg, In travenous, Every 6 hours PRN, nausea, vomiting, Starting Sat04/07/19 at 1536, Post-op [facility] Medication administered onsite Albuterol 0.83 MG/ML Inhalant Solution a lbuterol (PROVENTIL) nebulizer solution 2.5 mg albuterol (PROVENTIL) nebulizer solution 2.5 mg 2019 03:36:49 PM EST 2.5 mg active 2.5 mg, Nebulization, RT every 4 hours as needed, wheezing, shortness of breath, Starting Sat04/07/19 at 1536, Post-op [facility] Medication administered onsite 2 ML Midazolam 1 MG/ML Injection midazolam (VERSED) in jection 1 mg midazolam (VERSED) injection 1 mg 04/07/2019 02:47:55 PM EST 1 mg Intraveno us completed 1 mg, Intravenous, E very 15 min PRN, anxiety, Starting 04/07/19 at 1447, For 2 doses, PACU (only) [facility] Medication administered onsite HYDROmorphone (DILAUDID) injection 0.5 mg [id number] 04/07/2019 02:47:55 PM EST 0.5 mg Intravenous completed 0. 5 mg, Intravenous, Every 5 min PRN, severe pain (7-10), Starting Sat04/07/19 at 1447, For 2 doses, PACU (only) [facility] Medication administered onsite HYDROmorphone (DILAUDID) injection 0.5 mg [id number] 04/07/2019 01:20:29 PM EST 0.5 mg Intravenous aborted 0.5 mg, Intravenous, Every 5 min PRN, severe pain (7-10), max 4 doses, Starting Sat04/07/19 at 1320, For 4 hours, PACU (only) [facility] Medication administered onsite fentaNYL Citrate (PF) (SUBLIMAZE) injection 25 mcg [id number] 04/07/2019 01:20:29 PM EST 25 ug Intravenous completed 25 mcg, Intravenous, Every 5 min PRN, moderate pain (4 to 6), max 8 doses, Starting Sat04/07/19 at 1320, For 2 hours, PACU (only) [facility] Medication administered onsite heparin (porcine) injection 5,000 Units [id number] 04/07/19 11:00:00 AM EST 5000 U Subcutaneous completed 5,000 Uni ts, Subcutaneous, freight caller to [employer].Ferdinand German 04/07/19 at 1100, For 1 dose, Pre-op
If platelet count is less than 100,000 or hematocrit is less than 30, or there is a 5 point decrease in hematocrit, do not give the dose and call physician/designee
[facility] Medication administered onsite 40 mg 04/02/2019 12:00:00 [...] active Pantoprazole Sodium 40 MG eCW1 ( [facility]) 40 mg 04/02/2019 12:00:00 AM EST [...] 12:00:00 AM EST active 1 tablet eCW1 ([facility]) pantoprazole 40 MG Delayed Release Oral Tablet Pantopr azole Sodium 40 MG Pantoprazole Sodium 40 MG 04/02/2019 12:00:00 AM EST active 1 tablet eCW1 ([facility]) pantoprazole 40 MG Delayed Release Oral Tablet Pantopr azole Sodium 40 MG Pantoprazole Sodium 40 MG 04/02/2019 12:00:00 AM EST active 1 tablet eCW1 ([facility]) 20 mg 03/18/2019 12:00:00 AM EST capsule,delayed release (DR/EC) 30 TAKE ONE CAPSULE BY MOUTH EVERY DAY FOR 1 MONTH THEN NEEDED TAKE ONE CAPSULE BY MOUTH EVERY DAY FOR 1 MONTH THEN NEEDED SOLD: 03/20/2019 [facility] 17.5-3.13-1.6 gram 03/15/2019 12:00:00 AM EST recon soln 354 USE DIRECTED BY [facility] USE DIRECTED BY [facility] SOLD: 03/16/2019 [facility] 1,250 [...] SOLD: 07/24/2019 [facility] Drisdol 1.25 MG (93456 UT) UNK 03/09/2019 12:00:00 AM EST active 1 capsule eCW1 ([facility]) Ergocalciferol 80379 UNT Oral Capsule [Drisdol] Drisdo l 1.25 MG (13139 UT) Drisdol 1.25 MG (58633 UT) 03/09/2019 12:00:00 AM EST suspended 1 capsule eCW1 ([facility]) Ergocalciferol 51065 UNT Oral Capsule [Drisdol] Drisdo l 1.25 MG (56775 UT) Drisdol 1.25 MG (07564 UT) 03/09/2019 12:00:00 AM EST suspended 1 capsule eCW1 ([facility]) 81 mg 02/14/2019 12:00:00 AM EST [...] active Take 75 mg by mouth daily [facility] Aspirin 81 MG Delayed Release Oral Table t SM ASPIRIN ADULT LOW STRENGTH 81 MG EC tablet SM ASPIRIN ADULT LOW STRENGTH 81 MG EC tablet 02/14/20 12:00:00 AM EST aborted [facility] Simvastatin 40 MG Oral Tablet simvastatin (ZOCOR) 40 M G tablet simvastatin (ZOCOR) 40 MG tablet 02/13/2019 12:00:00 AM EST 40 mg Oral active Take 40 mg by mouth daily [facility] 90 mcg/actuation 12/26/2018 12:00:00 AM EDT HFA [...] type / Coverage type Policy ID Covered constitution party ID Covered constitution party's relationship to cunha Policy Cunha Plan Information [id number] [facility] 302/307 [id number] [employer] B [id number] P VYS [id number] [employer] [id number] Spo VYS [employer]BS [id number] [facility] PPO POS [id number] ANSI-Commercial [id number] ANSI-Commercial [id number] ANSI-Commercial [id number] ANSI-Commercial [id number] ANSI-Commercial [id number] BCBS [place] PPO 302/307 [id number] ANSI-Commercial [id number] ANSI-Commercial [id number] ANSI-Commercial [id number] ANSI-Commercial [id number] ANSI-Commercial [id number] [employer]BS B [id number] P VYS [id number] BCBS/[employer] [id number] Family Dependent [id number] BCBS/[employer] [id number] Family Dependent [id number] BCBS/[employer] [id number] Family Dependent [id number] BCBS/[employer] [id number] Family Dependent [id number] BCBS/[employer] [id number] Family Dependent [id number] [employer] BCBS P UNAVAILABLE P UNAV AILABLE Problems, Conditions, and Diagnoses Code Display Name Description Problem Type Effective Dates Data Source(s) K21.9 GERD (gastroesophageal reflux disease) G ERD (gastroesophageal reflux disease) [id number] 04/10/2019 12:00:00 AM [facility] F32.9 Depression Depression [id number] 04/10/2019 12:00:[address] [facility] I73.9 PVD (peripheral vascular disease) PVD (periphera l vascular disease) [id number] 04/10/2019 12:00:00 AM [facility] Z01.818 [id number] Pre-op evaluation Problem 04/02/2019 12 :00:00 AM [place] [address] ([facility]) Z01.818 [id number] Pre-op evaluation Problem 04/02/2019 12 :00:00 AM [place] [address] ([facility]) K43.2 Incisional hernia, without obstruction o r gangrene Incisional hernia, without obstruction or gangrene [id number] 03/24/2019 12:00:00 AM [facility] [facility] E55.9 [id number] Vitamin D deficiency Problem 03/09/2019 12:0 0:00 AM EST [facility] (Formerly [facility]) E55.9 [id number] Vitamin D deficiency Problem 03/09/2019 12:0 0:00 AM EST eCW1 (Formerly [facility]) Z09 Encounter for follow-up exam ination after completed treatment for conditions other than malignant neoplasm Encounter for follow-up examination afte Diagnosis 05/05/2019 11:07:39 AM EDT [facility] K43.2 Incisional hernia without obstruction or gangrene Incisional hernia without obstruction or Diagnosis 04/17/2019 01:58:05 PM EST [facility] K63.9 Disease of intestine, unspecified Disease of int estine, unspecified Diagnosis 03/03/2019 09:20:51 AM EST [facility] Surgeries/Procedures Procedure Description Date Indications Data Source(s) Immunization: Flublok Quadrivalent (18 years & older) 0.5mL IM (Influenza) 01/29/2020 12:00:00 AM EST eC1 (Formerly [facility]) PHYSICIAN TELEPHONE EVALUATION 5-10 MIN 06/15/2019 12: 00:00 AM EDT eCW1 (Formerly [facility]) BLOOD COUNT COMPLETE AUTOMATED CBC Timed 04/10/2019 3:42 A M EST 04/10/2019 08:42:00 AM EST [facility] BASIC METABOLIC PANEL CALCIUM TOTAL BASIC METABOLIC PANEL Timed 04/10/2019 3:42 AM EST 04/10/2019 08:42:00 AM [facility] BASIC METABOLIC PANEL CALCIUM TOTAL BASIC METABOLIC PANEL Timed 04/09/2019 4:04 AM EST 04/09/2019 09:04:00 AM [facility] BLOOD COUNT COMPLETE AUTOMATED CBC Timed 04/08/2019 4:02 A M EST 04/08/2019 09:02:00 AM EST [facility] BASIC METABOLIC PANEL CALCIUM TOTAL BASIC METABOLIC PANEL Timed 04/08/2019 4:02 AM EST 04/08/2019 09:02:00 AM [facility] CUL BACT XCPT URINE BLOOD/STOOL AEROBIC ISOL WOUND CULTURE Ro utine 04/07/2019 12:23 PM EST 04/07/2019 05:23:00 PM [facility] CULTURE BACTERIAL ANY SOURCE ANAEROBIC ISO&ID ANAEROBIC CULTURE Timed 04/07/2019 12:23 PM EST 04/07/2019 05:23:00 PM EST [facility] REPAIR FIRST ABDOMINAL WALL HERNIA REPAIR, HERNIA, VE NTRAL, SPIGELIAN, OR INCISIONAL 04/07/2019 12:03 PM EST Incisional hernia, without obstruction or gangrene 12/2019 05:03:00 PM EST - 04/07/2019 06:52:00 PM EST Incisional hernia, without obstruction or gangrene [facility] Incisional hernia, without obstruction o r gangrene POCT I-STAT BETA HCG POCT I-STAT BETA HCG Routine 04/07/2019 10:56 AM EST 04/07/2019 03:56:00 PM EST [facility] POCT VENOUS BLOOD GAS W LETTY POCT VENOUS BLOOD GAS W FLY tovar 04/07/2019 10:51 AM EST 04/07/2019 03:51:00 PM [facility] BLOOD TYPING ABO TYPE AND SCREEN Routine 04/07/2019 10:43 AM EST 04/07/2019 03:43:00 PM EST [facility] ECG ROUTINE ECG W/LEAST 12 LDS TRCG ONLY W/O I&R ECG 12-LEAD Routine 04/07/2019 10:42 AM EST 04/07/2019 03:42:09 PM EST [facility] Results ID Date Data Source TSH 03/01/2020 12:00:00 AM EST W1 (Formerly [facility]) Name Value Range Interpretation Code Description Data Amparo rce(s) Supporting Document(s) 0.653 0.358-3.740 THYROID STIMULATING HORM ONE eCW1 (Formerly [facility]) ID Date Data Source FREE T4 03/01/2020 12:00:00 AM EST eCW1 (Formerly [facility]) Name Value Range Interpretation Code Description Data Amparo rce(s) Supporting Document(s) 1.92 0.76-1.46 FREE T4 [facility] (Formerly [facility]) ID Date Data Source Comprehensive Metabolic Profile (CMP) 03/01/2020 12:00:00 AM EST eCW1 (Formerly [facility]) Name Value Range Interpretation Code Description Data Amparo rce(s) Supporting Document(s) 91 70-100 GLUCOSE, FASTING eCW1 ([facility]) 0.41 0.55-1.30 CREATININE FOR GFR eCW1 ([facility]) 16 7-18 BLOOD UREA NITROGEN eCW1 ([facility]) 100 98-107 CHLORIDE LEVEL eCW1 ([facility]ly [facility]) > 60.0 >51 GLOMERULAR FILTRATION RATE eCW 1 (Formerly [facility]) 3.7 3.5-5.1 POTASSIUM SERUM eCW1 ([facility]) 138 136-145 SODIUM LEVEL eCW1 ([facility]) 14 7-37 AST/SGOT eCW1 ([facility]ly [facility]) 29 21-32 CARBON DIOXIDE LEVEL eCW1 (On license of [facility]) 8.6 8.5-10.1 CALCIUM LEVEL eCW1 (Formerly [facility]) 20 12-78 ALT/SGPT eCW1 ([facility]ly [facility]) 2.4 3.2-5.2 ALBUMIN eCW1 ([facility]ly [facility]) 6.4 6.4-8.2 TOTAL PROTEIN eCW1 (Formerly [facility]) 0.6 1.2-2.2 ALBUMIN/GLOBULIN RATIO eCW1 (Count includes the [facility]) 0.5 0.2-1.0 BILIRUBIN,TOTAL eCW1 ([facility]) 126 45-117 ALKALINE PHOSPHATASE eCW1 (On license of [facility]) ID Date Data Source ADM ABDOMEN 1 VIEW (KUB) 03/01/2020 12:00:00 AM EST eCW1 ([facility]) Name Value Range Interpretation Code Description Data Amparo rce(s) Supporting Document(s) ADM ABDOMEN 1 VIEW (KUB) eCW1 (Formerly [facility]) ID Date Data Source [id number] 11/10/2019 08:55:00 AM EDT [facility] ([facility] ) Name Value Range Interpretation Code Description Data Amparo rce(s) Supporting Document(s) Blood Urea Nitrogen 11 mg/dL 7-18 Normal (applies to non-nume cande results) [facility] ([facility]) Glucose, Fasting 98 mg/dL 70-100 Normal (applies to non-numeric results) [facility] ([facility]) Creatinine For GFR 0.31 mg/dL 0.55-1.30 Below low normal [facility] ([facility]) Glomerular Filtration Rate Laboratory test result Normal (applies to non- numeric results) [facility]) <content>Units are mL/min/1.73 m2</content>
<content></content>
<content>Chronic Kidney Disease Staging per NKF:</content>
<content></content>
<content>Stage I & II GFR >=60 Normal to Mildly Decreased</content>
<content>Stage III GFR 30- 59 Moderately Decreased</content>
<content>Stage IV GFR 15-29 Severely Decreased</content>
<content>Stage V GFR <15 Very Little GFR Left</content>
<content>ESRD GFR <15 [address] [employer] MANAGER</content>
<content></content> Sodium Level 144 meq/L 136-145 Normal (applies to non-numeric res ults) [facility] ([facility]) Potassium Serum 3.5 meq/L 3.5-5.1 Normal (applies to non-numeric results) [facility] ([facility]) Chloride Level 110 meq/L 98-107 Above high normal [facility] ([facility]) Anion Gap 6 meq/L 8-16 Below low normal [facility] ( [facility]) Carbon Dioxide Level 28 meq/L 21-32 Normal (applies to non-num dave results) [facility]) Calcium Level 8.6 mg/dL 8.5-10.1 Normal (applies to non-numeric re sults) [facility]) ID Date Data Source [id number] 11/10/2019 08:55:00 AM EDT [facility]) Name Value Range Interpretation Code Description Data Amparo rce(s) Supporting Document(s) Red Blood Count 4.21 10 4.00-5.40 Normal (applies to non-numeric results) [facility] ([facility]) White Blood Count 6.5 10 4.0-10.0 Normal (applies to non-numeri c results) [facility] ([facility]) Mean Corpuscular Volume 98.8 fl 80.0-96.0 Above high normal [facility] ([facility]) Hemoglobin 13.5 g/dL 12.0-15.5 Normal (applies to non-numeric resul ts) [facility] ([facility]) Hematocrit 41.6 % 36.0-47.0 Normal (applies to non-numeric resul ts) [facility]) Red Cell Distribution Width 13.5 % 11.5-14.5 Norm al (applies to non-numeric results) [facility] ([facility]) Mean Corpuscular Hemoglobin 32.1 pg 27.0-33.0 Norm al (applies to non-numeric results) [facility] ([facility]) Mean Corpuscular HGB Conc 32.5 g/dL 32.0-36.5 Normal (applies to non-numeric results) [facility] ([facility]) Platelet Count, Automated 205 10 150-450 Normal (applies to non-numeric results) [facility] ([facility]) Nucleated Red Blood Cell % 0.0 % 0-0 Normal (applies to n on-numeric results) [facility]) ID Date Data Source [id number] 08/04/2019 09:29:49 AM EDT [facility] INFORMATIONPatient MRN Name Date of Age Gend*PT [id number] Vivian Bennett 1970 48 years F ---PT Location Admission Date/Time Visit ID Attending Provider --- --- --- --- EPI ID CSN Admitting Provider [id number] ---Subjective:Patient presents to the office for a [...] rce(s) Supporting Document(s) ID Date Data Source [id number] 05/05/2019 01:15:00 PM EDT [facility] Name Value Range Interpretation Code Description Data Amparo rce(s) Supporting Document(s) Follow Up [facility] PHCTGk4gEaUTIzVfVUOjIyhGQCllKOwgEYNmW4T3ECfmQq1BODwtvcTvXGGqXl9+QWIvGS7wpu4pKQGr gMy [file] W9+6hzi5AV5IW+p+ngCxTnwd+RheU3ufM+FIELD GEOLOGIST+fc4LL [file] FIELD GEOLOGIST+h9HA+ImvD3tJC+ZHdMB0cBCIujVE5kdzMCeitJiype52cCNEy6JXbNA9+NKI8ZkrLkkJHHUMyAz1N [file] Tube Drawer/ALtZJ2M2lWf8ZHEdBVwQZbavP/K/av0YNmO9rUX EKu3mzzdrUTACG21DKCS7LoCdu+Bwde5swWCreKy4RhLgASx0D3nD2/g3BFgQ/0JxrYr3E0s8BE7xL9A gCtvBD4I0Z89lyRZTUy9z8zF78s/cT2Y3NNFLUmrNdM8O001fI4fUgYWk4hwPdyRQ98omb9bvHYuqJYg 3tpFcY6zR+VFYMZD9/JwPN9GN33OEgMLdus69yeLKH krGZ06fBB+PctlAFK1BOAF91EfPoHZpWMMSznV6j/pRc3fMc2lvZ0BN/tCJQc3oQDzmTwA2Jv8NrMmLz s7geQ+PRsk9UJVAZxGH/QpJ2+ii1H6/11vPEHad/THsq2nqZT1QFiKY77Li5vdn8thu4Lo6FCcOOjQee URGjCQ5612yXlQEon48SNnKIqXpU9U1HlLes/l/HMw cec8dwmqqdtZRBioCbI/oXesp1RSkwmU8vuZag+BXtCv+g4Ay3sgdq6RP0tGv6DaG3TM2MArzuXOLPMV sjm0iRfetrjQv4ug0zvh7UlgY1N0j0e1F7soVdNP3m1z2Ajy2F8N/lKxbDXQwSwFY56kAhfVs6/ZH3qI nadaPf8/KDuruKi+L0yUJMs3l7eQxGIKYYQoFI4zCS v1iNzmMtZIESyO4V4nXQYDDn5IBjQKG+PHpgP8xvbj+felipe+/XZa+33+T7vZ+/nJXHEvqD+/fgFvnc77r [file] 8AKUz48LEoVH93bxGQSMhphhMkwYBT4YlVpmzBxK2HXMsM6In4mjQQ2Mts+5gWzrhs9mF4JRmvu0r/FIELD GEOLOGIST [file] 1u6fFjGuo4p9Gt4sleWQT836cDtTe0cs/surface lay out technician+3fLdiw6OXteE2rsgIebJ/bBr95csdYY5R2PzkYGR8CK [file] hLYdxWjes2WUkPvf+Pavcvj+0T+Z19vznhy5hR9jc0SaTaJyB768NqkjyYoXjQgk/g9qqIvcBdA+[place]+ [file] YROfE+51lyM1m+CJldTKWgAhb0Ded+3HQGIACZSvmuOUMLSGKLfZWLX+RIVERA/SU0+F053fokefMS3bY/zK PD/soKr+eDxDCKro4EEC3gLVlhv0H9piO4+V/AESDeSHhsbps9FMDsJGhjq8KokTwLY2UADjbu3N/pwP mELw15Vkj9CjQjj3WVlar4ykPohsx6Kqtwaq8CwZ70 f1zqfpI5LNyPmJzfFTdHvDw5Ij9y7lkZJe0nUWPs2xIseDV4hxYW03Vv4h65+XtIOWUChiQ22sMEd31v QUzuSIR1tI3V19UcKn8SEgdLFu2vKi6kOotRKRwykLDWSleWYkBWE7sWGdfwjU1y7mUaivSri/z3SssV NsCvFwzes5ZpCav7mTdC8wKc1FXOaL6P42lZ40bA9g BfyDJ5zXGp64B+74OpbI2hnvmKkGXZaMDJajuVdyQf3mCJJ5iKFSranXmvKSR8Tm+yFnSgpCGBP+QCmp R5SkTgs+7+s5Kp8Nmu8XfkSbbX9ult27d2VFgbS0aLQixC/jeHs8YkqtsD/oWy8IwELTsZK2UhRNmK3q sjQZk8pRJ1941gCCTyi5CLwr9dAzx9TPQBYt3MJH3r gGNLWAwd2ovobU7xvsqASSvcKLXGMnK9Kz8gwB5M88827t2jchPHDfw9tnG8kc3GoMpl32Nx5w9zvrxD wQGEnIvMy9dgVdagJMY7GWg+CGt8m4HUeKEmoNMMIN4ue4zyJkdobAzxuGJzBDynWKN0Xv86j+f+qY6l e1XMowabkWK21r12ell3ZiTwi/BfV0PsOc+awNiSKw h48Kd5elvqcASdjYONWfPTtiDJsBrtGJuXp5P1uWkr/aIHDa2cgAWqFAjmLvnwWaXigQfUjrjh+fN4e1 aMsPVmcu3mo7p1vL0Dsvfx3R8Z6amszOTFi4MRbFvJxrNEVhgJ6ow1HjLHlm8hTwok9idYctqCIofdcC 10LGLZkXrgl/+wP3CQqxfw5+QZNdbcNmKxvtKrO [file] 7X6syV+GKY7t6+licensed therapist+D0MBqslluehsXw+VAL1AXioQ [file] HJQUqdCZ+a2slPxJKQ0tBZkJR4H+C+5JdSOxACB7pVGlBV4X8/tskn1cvDYjb0JG7pr+TE6De4IE+Ship Scaler [file] 6wVbEdqq+iLkHGBPheZ7oFOi23s9SWkgt6K0Khkr2u5XLoj8OU5TCoWi3oPykZj4iJx/3qCtwU6v/MITTEN STITCHER oIdozoKtZKyy0v7kEtsV3qkO+VylR7Lp2WdEev0pjd69MwfzcvCVkaXcRO8LiXw5bw7ueABEasvsRVXN dxc+DnItkv21Cio9SNb7oXS5P9cmMnoPqTFlx+5bJ5 EVDVifaaxva8C2vU/Alexi/gVawhh628Sx91rhM7a+JAfZNvmfiJZxjN7EjRO7lOiySltOMJxHod9o8jQH [file] hebmQdhNGqVQ4HWfMlGZ7qzk3NUoY6FYZ8iLAfOp8WKNI3YQRiGk1VWLUAY4E= ID Date Data Source [id number] 05/05/2019 11:30:40 AM EDT [facility] NT INFORMATIONPatient MRN Name Date of Age Gend*PT [id number] Vivian Bennett 1970 48 years F ---PT Location Admission Date/Time Visit ID Attending Provider --- --- --- --- EPI ID [id number] Admitting Provider [id number] ---Subjective:Patient presents to the office for a [...] rce(s) Supporting Document(s) ID Date Data Source [id number] 04/20/2019 07:13:13 AM EST [facility] INFORMATIONPatient MRN Name Date of Age Gend*PT [id number] Vivian Bennett 1970 48 years F ---PT Location Admission Date/Time Visit ID Attending Provider --- --- --- --- EPI ID CSN Admitting Provider [id number] ---Subjective:This is a patient of Dr Grier [...] soft, non-tender. Incision is clean and dry. Hilliards removed exceptaround the umbilicus. Skin is noted [...] rce(s) Supporting Document(s) ID Date Data Source [id number] 04/11/2019 06:54:18 AM EST [facility] INFORMATIONPatient MRN Name Date of Age Gend*PT [id number] Vivian Bennett Priscila 1970 48 years F IPPT Location Admission Date/Time Visit ID Attending [id number] 04/07/19 0945 --- --- EPI ID CSN Admitting Provider [id number] Vannessa Marshall MD([id number]) Attestation signed by Shannan Grier MD at [...] by mouth dailyvitamin D (Ergocalciferol) 1.25 MG (41031 UT) Caps Take 1 capsule by mouth [...] Value Range Interpretation Code Description Data [facility](s) Supporting Document(s) ID Date Data Source [id number] 04/10/2019 04:39:42 AM EST [facility] Name Value Range Interpretation Code Description Data Amparo [facility](s) Supporting Document(s) SODIUM 141 mmol/L (136-145) [facility] POTASSIUM 4.2 mmol/L (3.6-5.2) [facility] CHLORIDE 105 mmol/L (100-108) [facility] CO2 30 mmol/L (22-31) [facility] ANION GAP 6 mmol/L (7-16) L [facility] UREA NITROGEN 7 mg/dL (7-24) [facility] CREATININE 0.55 mg/dL (0.60-1.00) L [facility] BUN/CREAT RATIO 12.7 RATIO (10.0-20.0) [facility] GLUCOSE 90 mg/dL (70-99) [facility] CALCIUM 8.8 mg/dL (8.4-10.2) [facility] GFR >60 ml/min/1.73m2 (>59) [facility] GFR ( AMER) >60 ml/min/1.73m2 (>59) [facility] GFR INTERPRETATION [facility] --NORMAL KIDNEY FUNCTION OR MILD DISEASE - GFR >OR= 60CHRONIC KIDNEY DISEASE - GFR 15 - 59RENAL FAILURE - GFR <15 Est. GFR calculation based on the MDRDstudy equation, which assumes a steadystate for creatinine. Est. GFR should notbe used for medication dosing. ID Date Data Source [id number] 04/10/2019 04:13:34 AM EST [facility] Name Value Range Interpretation Code Description Data Amparo rce(s) Supporting Document(s) WBC 3.8 10*3/uL (4.1-11.0) L [facility] RBC 3.87 10*6/uL (4.00-5.40) L [facility] HGB 12.3 g/dL (12.0-16.0) [facility] HCT 36.9 % (36.0-47.0) [facility] MCV 95.5 fL (80.0-95.0) H [facility] MCH 31.9 pg (27.0-32.0) [facility] MCHC 33.4 g/dL (32.0-36.0) [facility] RDW 13.9 % (10.5-14.5) [facility] PLT 196 10*3/uL (150-450) [facility] MPV 7.3 fL (7.1-10.7) [facility] ID Date Data Source [id number] 04/09/2019 07:24:51 AM EST [facility] Name Value Range Interpretation Code Description Data Amparo rce(s) Supporting Document(s) SODIUM 139 mmol/L (136-145) [facility] POTASSIUM 4.0 mmol/L (3.6-5.2) [facility] CHLORIDE 103 mmol/L (100-108) [facility] CO2 31 mmol/L (22-31) [facility] ANION GAP 5 mmol/L (7-16) L [facility] UREA NITROGEN 4 mg/dL (7-24) L [facility] CREATININE 0.53 mg/dL (0.60-1.00) L [facility] BUN/CREAT RATIO 7.5 RATIO (10.0-20.0) L [facility] GLUCOSE 100 mg/dL (70-99) H [facility] CALCIUM 8.7 mg/dL (8.4-10.2) [facility] GFR >60 ml/min/1.73m2 (>59) [facility] GFR ( AMER) >60 ml/min/1.73m2 (>59) [facility] GFR INTERPRETATION [facility] --NORMAL KIDNEY FUNCTION OR MILD DISEASE - GFR >OR= 60CHRONIC KIDNEY DISEASE - GFR 15 - 59RENAL FAILURE - GFR <15 Est. GFR calculation based on the MDRDstudy equation, which assumes a steadystate for creatinine. Est. GFR should notbe used for medication dosing. ID Date Data Source [id number] 04/08/2019 06:37:13 AM EST [facility]FORMATIONPatient MRN Name Date of Age Gend*PT [id number] Vivian Bennett 1970 48 years F SDCXPT Location Admission Date/Time Visit ID Attending [id number] 04/07/19 0945 --- Shannan Grier MD([id number]) EPI ID CSN Admitting Provider [id number] Shannan Grier MD([id number]) [place] [address] OPERATIVE REPORT OPNAME: VIVIAN BENNETT#: [id number] ROOM #: ORPOPL ADMISSION DATE: 04/07/2019DOB: 1970 SEX: F PT TYPE: S SURACCT #: [id number] CARE PHYSICIAN: SHEELA PATE PHYSICIAN: SHANNAN GRIERDATE OF OPERATION: 04/07/2019ATTENDING DOCTOR:Shannan Grier MD.CHRONIC CARE NURSE:GINO Pinto.PREOPERATIVE DIAGNOSIS:Multiple incisional hernias.POSTOPERATIVE DIAGNOSIS:Multiple incisional hernias.PROCEDURE [...] w pretty butchfredi returned.ROHAN HARP/MARLI Job #: [id number] DOC #: [id number] Name Value Range Interpretation Code Description Data Amparo rce(s) Supporting Document(s) ID Date Data Source [id number] 04/08/2019 07:01:10 AM EST [facility] Name Value Range Interpretation Code Description Data Amparo rce(s) Supporting Document(s) SODIUM 137 mmol/L (136-145) [facility] POTASSIUM 4.4 mmol/L (3.6-5.2) [facility] CHLORIDE 104 mmol/L (100-108) [facility] CO2 28 mmol/L (22-31) [facility] ANION GAP 5 mmol/L (7-16) L [facility] UREA NITROGEN 7 mg/dL (7-24) [facility] CREATININE 0.58 mg/dL (0.60-1.00) L [facility] BUN/CREAT RATIO 12.1 RATIO (10.0-20.0) [facility] GLUCOSE 113 mg/dL (70-99) H [facility] CALCIUM 8.9 mg/dL (8.4-10.2) [facility] GFR >60 ml/min/1.73m2 (>59) [facility] GFR ( AMER) >60 ml/min/1.73m2 (>59) [facility] GFR INTERPRETATION [facility] --NORMAL KIDNEY FUNCTION OR MILD DISEASE - GFR >OR= 60CHRONIC KIDNEY DISEASE - GFR 15 - 59RENAL FAILURE - GFR <15 Est. GFR calculation based on the MDRDstudy equation, which assumes a steadystate for creatinine. Est. GFR should notbe used for medication dosing. ID Date Data Source [id number] 04/08/2019 06:35:50 AM EST [facility] Name Value Range Interpretation Code Description Data Amparo rce(s) Supporting Document(s) WBC 7.9 10*3/uL (4.1-11.0) [facility] RBC 4.22 10*6/uL (4.00-5.40) [facility] HGB 13.5 g/dL (12.0-16.0) [facility] HCT 39.8 % (36.0-47.0) [facility] [place] [address] [place] [id number] MCV 94.4 fL (80.0-95.0) [facility] MCH 31.9 pg (27.0-32.0) [facility] MCHC 33.8 g/dL (32.0-36.0) [facility] RDW 14.0 % (10.5-14.5) [facility] PLT 223 10*3/uL (150-450) [facility] MPV 7.5 fL (7.1-10.7) [facility] ID Date Data Source [id number] 04/07/2019 12:33:17 PM EST [facility] Name Value Range Interpretation Code Description Data Amparo rce(s) Supporting Document(s) EKG [facility] SEYPSe5qIrBGHrOpa0QfPePwHXKeKA2zcry3S4G8vVEmV0GgjQNbo8prP9VgE3RgXHHqDYXQLE6IeLDy jb2 [file] BSCgo+OnpewDCweAsfRXKTVKW2QbPBQPVNW2K= ID Date Data Source [id number] 04/07/2019 12:23:53 PM EST [facility] NT INFORMATIONPatient MRN Name Date of Age Gend*PT [id number] Vivian Bennett 1970 48 years F SDCXPT Location Admission Date/Time Visit ID Attending Provider --- --- --- --- EPI ID CSN Admitting Pr ovider [id number] ---AirwayPatient location during procedure: ORUrgency: electiveDifficult airway: [...] rce(s) Supporting Document(s) ID Date Data Source [id number] 06/02/2019 10:17:55 AM EDT [facility] SPECIMEN DESCRIPTION ABSCESS SUBCUTANEOUSSPECIAL REQUESTS NONEACID FAST SMEAR NO ACID FAST BACILLI (CONCENTRATED SMEAR)CULTURE RESULTS NO ACID FAST BACILLI ISOLATED AFTER 8 WEEKSREPORT STATUS FINAL 06/02/2019 Name Value Range Interpretation Code Description Data Amparo rce(s) Supporting Document(s) ID Date Data Source [id number] 05/12/2019 10:05:30 AM EDT [facility] SPECIMEN DESCRIPTION FLUID ABSCSPECIAL REQUESTS NONECULTURE RESULTS NO FUNGUS ISOLATED AFTER 5 WEEKSREPORT STATUS FINAL 05/12/2019 Name Value Range Interpretation Code Description Data Amparo rce(s) Supporting Document(s) ID Date Data Source [id number] 04/10/2019 01:44:51 PM EST [facility] SPECIMEN DESCRIPTION FLUID ABSC SUBCUTANEOUSSPECIAL REQUESTS NONECULTURE RESULTS NO ANAEROBES ISOLATEDREPORT STATUS FINAL 04/10/2019 Name Value Range Interpretation Code Description Data Amparo rce(s) Supporting Document(s) ID Date Data Source [id number] 04/10/2019 01:44:16 PM EST [facility] SPECIMEN DESCRIPTION ABSCESS SUBCUTANEOUSSPECIAL REQUESTS NONEGRAM STAIN FEW (<10/LPF) WHITE BLOOD CELLS NO BACTERIACULTURE RESULTS NO GROWTHREPORT STATUS FINAL 04/10/2019 Name Value Range Interpretation Code Description Data Amparo rce(s) Supporting Document(s) ID Date Data Source [id number] 04/07/2019 11:09:32 AM EST [facility] Name Value Range Interpretation Code Description Data Amparo rce(s) Supporting Document(s) POC [facility] <5.0 IU/L [facility] INTERPRETATION:<5.0 NEGATIVE5.0- 25.0 INDETERMINATE>25.0 POSITIVELEVELS BETWEEN 5 AND 25 IU/L MAY INDICATEEARLY AND SHOULD BE REPEATED JONN BLOOD SAMPLE AFTER 48 HOURS.PERFORMED BY [facility] CLINICAL STAFF ID Date Data Source [id number] 04/07/2019 11:09:27 AM EST [facility] Name Value Range Interpretation Code Description Data Amparo rce(s) Supporting Document(s) POC SOURCE [facility] POC TEMPERATURE [facility] P[facility] FIO2 [facility] POC VENOUS PH 7.46 pH (7.33-7.43) H [facility] POC VENOUS PCO2 41.3 MM HG (38.0-50.0) [facility] PO2 36 MM HG (30-50) [facility] VENOUS SO2 72 % (60-85) [facility]ENOUS BASE EXCESS 5 mmol/L [facility] VENOUS HCO3 29.1 MMOL/L (23.0-27.0) H [facility] TOTAL CO2 30 MMOL/L (24-28) H [facility] BY [facility] POC HCT 42 % (36.0-47.0) [facility] P[facility] SODIUM 140 MMOL/L (136-145) [facility] P[facility] POTASSIUM 3.8 MMOL/L (3.6-5.2) [facility] P[facility] IONIZED CALCIUM 4.7 MG/DL (4.6-5.3) [facility] P[facility] GLU 96 MG/DL (70-99) [facility] PER[facility] ID Date Data Source [id number] 04/07/2019 10:47:25 AM EST [facility] NT INFORMATIONPatient MRN Name Date of Age Gend*PT [id number] Vivian Bennett 1970 48 years F SDCXPT Location Admission Date/Time [facility] --- Shannan Grier MD([id number]) EPI ID CSN Admitting Provider [id number] Shannan Grier MD([id number])H&P reviewed. The patient was examined and there are no changes to the H&P.Signature: NAVA Harpate: April 07, 2019Time: 10:47 AM Name Value Range Interpretation Code Description Data Amparo rce(s) Supporting Document(s) ID Date Data Source [id number] 04/07/2019 11:55:50 AM EST [facility] SPEC EXP DATE 04/10/2019PATI ENT ABO/Rh A POSITIVEANTIBODY SCREEN NEGATIVETESTING SITE PERFORMED AT [address] [place] [id number] Name Value Range Interpretation Code Description Data Amparo rce(s) Supporting Document(s) TYPE AND SCREEN [facility] ID Date Data Source [id number] 03/31/2019 01:39:00 PM EST [facility] NT INFORMATIONPatient MRN Name Date of Age Gend*PT [id number] Vivian Bennett 1970 48 years F OPPT Location Admission Date/Time Visit ID Attending Provider --- --- --- Shannan Grier MD([id number]) EPI ID CSN Admitting Provider [id number] ---OUTPATIENT / OBSERVATIONAL SURGICAL OR INVASIVE PROCEDUREName: [...] 02/13/19Historical Provider, vitamin D, Ergocalciferol, 1.25 MG (19395 UT) CAPS Take 1 capsule by mouth [...] | SpO2 94% | BMI 28.88 kg/m [facility] Frailty Scale :: 3/10 Managing Well (medical problems are well controlled,but are not regularly active beyond routine walking).Stop Bang Questionnaire - Total Score:PHYSICAL EXAM:Airway - 1Mental and Neurological Status: [id number]: Clear to auscultation. No wheezes, rhonchi or crackles.HEART: Rate rhythm regular. S1, S2. No murmur, rub or gallop.ABDOMEN: Bowel sounds positive times four. Sof. Large left abdominal herniatender to palpation. No hepatosplenomegaly. Negative CVAT.EXTREMITIES: Pulses are symmetrical. No edema.NECK no carotid bruit bilaterally.03/31/2019 1:38 PMLyudmiskylar [facility], FIELD GEOLOGIST Name Value Range Interpretation Code Description Data Amparo rce(s) Supporting Document(s) ID Date Data Source [id number] 03/24/2019 09:18:10 AM EST [facility] INFORMATIONPatient MRN Name Date of Age Gend*PT [id number] Vivian Bennett 1970 48 years F ---PT Location Admission Date/Time Visit ID Attending Provider --- --- --- --- EPI ID CSN Admitting Provider [id number] ---Subjective:Patient presents to the office for followup [...] rce(s) Supporting Document(s) ID Date Data Source [id number] 03/18/2019 11:30:00 AM EST [facility] Name Value Range Interpretation Code Description Data Amparo rce(s) Supporting Document(s) EGD-Colonoscopy [facility] JEWXCy4zVcYQLhUrTLLhWecQHRrvXYolQGTrJ8G3VVrvWu2NDLmbrmAvDSJoHe0+NVWcHB0yeb2hNXRr gMy [file] +PQiksoL/corrosion technician/8LwL/VtYptVg3DPpiwcHfZSw61ekjgNQ+g8cQ8YU4Iiv1anCjOxDIxczUZYf1lj+W/A Ey2wKTPA/jy63eZrl2IoTTCxgUfn6sZKykQ19l50Bf +Zzys4g4cKY3H/od2HsF1Ewi1344Umi876Od+B+4Daiu5GMR6JrUESCJeYcktXV7WL4Am6+dMBkj/JOSE [file] TANNING CONSULTANT+YHsXm0SBtOpK3LMfLP/Vn1a/SLbgRt2s8xCKuJ7 lsV7Y9zgZnCubAC5q1eNk49lIo15qXcat+BkL68vj8gW/D5sV+qGzLDKvCcGzIkoAIhiOOonMNjXoFPL GLXqsvoHH/oHyPicOfjSDdOx/38uwVThccbTQMjziXNIW/SWhqJBVWiEg4NBMQZZPPLF1fVvqseHf5YJ XsDSpK39vuh0FUAzIpp3zCb9Ld2mH5DRnBsoFuK8/H 1PBcfp0gN+Ravinder/V7rrokmNDy24X4xntORXlqbClPcoUG2V4rbxs+6UKW111G/5BF2HAPtcLwFN7rgKx lXRxgLEvkbuxW3Eq2kFTmtZKcOEdmJRaXxkG5pjWMIwHxVUP9kjIvNFAeWpCvx4hp7Qk1A2M3WcJ10ie qt6DQAoyFfv/ayckNoKIzfqZMt7G5XeAixeekuxW1f AkDF4z2ZRxYyg7XOwKej18+8gOXyfI2x9NW0QWSGm7DcWcjAH6gHFklJscNFARaWh4767MjbBQg6+6B4 Rz+im2+XzX4Pr98tPXQ7p/YCzy+BMbaxG8rvd81Ac+TghiUCN1D6JjB+h1tG+IOpgUa6d4aRbDFsH7z9 Hie50p1IDe6YFIMTvLpx9BbDlRVefRTfl5nJc0k54h vk+9PS3NE1qmoYE/5cFzBSnlj8rQp9SEBTxHTZ6e28cxMz3R0ZeA8xPzkeSqQoLjBG+OVDDEBBc8ybGz 7bfawIMENz1clLtrY7Jn3tYBkWpwPJNx4Zf9WtTY49kggWRdEAMVMsC3ce5uExmEmoGKI5AY1F/SRsll 9PlFrYrSc5/I9dPvU1h2rjInuO9FkeAj45STgu/jUX uf02Q8MnYwTlYfgKb1EKKrUMsw/rZBYySm0vuqbko8GZxBrA1+OIGcgfruXXS0zBXSQIZmqsUYEXTMVK cq26qmbqiEICHN6F7WDVrpWn+d6l5NAzqqKFBfYh5Rjtp7vuQhDGYcxdzqzwhn2JvpUlCWth2wwtUqV4 rrcDV+7kkGlLEX1vBschAEGcF3hK1tR4mwGNWhnbO5 2xwEk7BxG57o5AoNi2JOXvEQ8g9hu6VZ3TZN8WD1i8gLddybjt4gDux/Monisha+n33FUxVjlDfyn0LRX/DU [file] [facility]+yOTg17jk9XDTHo8mTF6UXltefDMKOpCkHH67jGDG8BLX5da3B3Sfv/KEBgLaPNjhdK9ZhrIM5p [file] IIpYMzFckjMKp7K9JBcm5tzDzJlkW2SeVJ8tu7QAIlrk+WozuXGtnMeGHFmHT4xJzCZjzh/Tube Drawer/8OxrWO [file] cda teacher//lJBK+Qk3XHnklTePgQ/KmFJvlLHacgBXtZZcyQGa9waNkD8hSxuYZlzHC4WnCENR8t3sZd3wqLhq [file] pull over/HNAQGTk2RjRf20g7W8/bAU3AH8IWAj8UuePq5PKdDXwiY1hLU8Bm4qREp4rPWpXGjTwrleGhozcVl fiMR4lfkHA/h0JTc3UxoGZ+s/UTu3by4PXpHMEJYo+qM6VqF4jaKR2jCpOEPRi0fAAV4d2sTEhbDE2BP BhJ0MfOiocNQ9H3JjMXmvgIajjGxAVScM+pKHlyEu8 DcThhPFos1uo5SvGLzeBv2mJQ16wz8rQT0duf2y/xej+Ezra/eIANgwZEPfulA0g9bHzsnWXm7TN+BjI5 [file] AhulKUkDEnHHkEumop73rsBcRjoTzYqDsel63c/Janet jN+XQneopL2E2Vio1QcU0VzSwJVwi/tZEW6tT1OxIdtK4cvv4wJw++tEW8XAocoeHl25mCrbNZWfZLjz GEBYUQUOwkyn03lETMb/VTeT9qrQRdnPpbBTR19mr9/3iJQ3ecdOoEa3aNn/qKjDWPQwdEpvnuyr0XeI cTsSOaW3UULvNfw31BAMBRo3LPSUZ5+SsZ1rBXO+uo TJuiQqv37ayH5AJ4U8LdAXgzrCYOx98mwDmfO94Wl5EKiyyD902bC4m5uZPO6tL8dpi2S29bTn5SPsql /h6ldlWQRk0EUj/pull over/NZG9kibjJbZzvHbCHZIDLV1yPrsc57b7Fkj4bODb6ixapWUAb9C/DurA4pxNCM [file] 1aMZKNc+yWdD6iNRDq3VSJrpKzGNOcoXM02uGG3KKRc5KMDtUpttP66Yx9LKIIRLEaK+cda teacher+3B9zRIFXq [file] pediatrics hospitalist/OejA1KnF1Vmq8UTRm2e9V27y02UvX2sBDG2eN03fkFrrcu2xYXFx/6BlXyYg5DGcYICcuhGR3Ufe c5/+IsD1+iCiQ3C5qqm5wHPtQoCOYqqFyD2K37miHfb3edqpvNSiWvjufwI4aWeOo5L9F2GLPad2B95r Q+8mESnRh73XNzV4g15IUZgTH2/VonCqDvQzlnT3BN d1NFtoptBzRt1cZWis9JYtQ4GE+xqNl7/ktvKTUxDHbKrorBhXeAqtU+94VUlEtxwFYVn4cQhr5jr76A EKG8VYaogLpYtvtrqfEbXt1SfOF0Xs8CSUfgfvK28R8ePAVf0r+l1BVn8z91p01MKMQGt9skf0/ZomfZ ARA3n66aLoOa9b7kb+Bsv9lLv4LD7ZEbN1hLFj+3l3 vnWmM5eDoa7FBAja/cKZmpDWmj8CEhmBMNpoMN+DDRUxfE0G6gBKGdf2r9rUZrAlifHHGYVZy1H2VMG9 4xaRx9kq1u6KBnSDtL4z8uprbwp8Z8DW8i308s+1rE6nVpfbmR+DGDEmIZ4HBDkCUr6hTTV4Og6kSyZC dtKoYDH+/Y+eDSxd8c6U2TGoFGxhlrf1YG18SldY7B nQkgeXOso0wtGmjEwrwdi/EAl0dNg2PKheL49yxtCh44Gg3Q0+i+jtdjcfyT4YvmNQ315SPU6qYWV0nf Myx5Kz1Gn51CvpyFhFuDXKh0Hp6+1npRr6IvAAnr56GpPLOIGghS6of7O6/rlwTAE9s/qrEF49Sgosmc jvqpIcYIu9DbmqdKox9Fpcgo3SuzdfscByxWQZ+oEO [file] gKgMt/qEfZE7drDqYeFYgh2TQy02uafaq9B9hrV9K7/sfNlzhyFc6Yh2AqbUL83DYa2CY4j48/Tube Drawer+pb6 [file] uCVAs/LIq7MarrxvcehgznKFWg2Nxb2Lw/GPOZpODZ9I94tFh50bjn/u919eDPUz6vnWlKY9XPA07/cda teacher [file] lQOYKHzd0QyaypjTx7Sy2BVmLhOkiX1UZrOwB97Yz7rWGybS/1/fdWXJPMpagVMg8eWJUGa2Mso4+Business Loan Processor E3JR5qJyNs6Ydw0+hi7Dqix954D9f0STK14KJcoGhD akpnhe4W0PoAIZd4+LISA/RfhdEoDOaEZHwL8m4jnTHjFpEsxYpw++SsTvXt51tRSCwk5z7sAHW8eegpm PlMCugNVru1BneP9qfpLKi0WxLU6M0CxGNxxWyCRwjHQSZKfqzMJpX2T8fCEdCXE7owqPBfaXHEHviq/ AtK0tiVNb4jWUNdDQ/SG1td/NJvkCvxszL1SjIG/8P V+L1rt2Yai0q8ObH7J7XDLmlag4fcgyQ0dw7QIeehlyFVJl9UhC0SMq/bzLCtJJxO31OXi2pgW2VzZcW 7PGr7NHQwC3g4Zqiv0QnwlCQQJazvLb26aPxO3sJg3nHGsC3eaWDuxGRAVVe2FuOAfUupkZ6TbNtkidB bkcPA17WO+uVKau1MXhZklEQzOWNS4GFi0mEwf+j5J Jj7IXX7mMX6r8i9CX+kVV53UE0Hc9E7v3IFVkV+w9Dv51akIG52xQA1Wf8Ue53qbSkCuALYd0WLYbcFZ gPPIPiys6KdRNd/a3GAX595gY0NRabp7u30BMrHHtydiqm6Ahf7o/jZYh2mLC4z5P1rYPZueI1uLL+JU eSNaUd/HUJAEzqBFXmOn2de1oyu5GOnCTHz8lcAk4U NlAKaNm0REbM5DGtKJGiiTCTcO/s9rCfHL7HOaUBqqn1qTt0XSWKSxsLVjE5p4bPJjHMI6hCNccx1tbT PvXpl2aIdC+ts38djUPUHaf59E0Ej0UasV8uZzrnu1MPZ0YyFE3Diyjp2ki9tPN40hypNQUdjwzutIGV RUDlw7ag97loV1OUbuzkykadMmAv18yCUf7CNXIdlT MZJ6uHHJl8XsGZki3CcXa8yd8i6Ti5whnq4Kwe+YeJu2+PRAbmW+Frazier+439iLmXGwDZ0xQ5SRxIoFcERv [file] gbo+QK9jKFiv2tGOhK6gkziMG6r40gQsbgNcZy+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 [file] vp strategic planning/kBXsigJm4/yaM09GfjesEOBuloFO4NJ/i7m2lm+nb4SNw0MwSnLuHLpMkhSZJ2SxsqKwEKLt1BKhR [file] pediatrics hospitalist+Dw03gW4dFu9p1mtzDd2U4nuSV3KAlEjp6o+0xS9fe+lsyvcUZCZUW+BtkKaK+9hhY/gv5WJDt6pE uiumh3M4TUUnmCkjN3Rbx3U67xQzLaRwjU+upG4Qw7tBKlqBgTrb5lEN8L5dw2vZNc75azcfuGw+VIjM giR3qEI/I/6fD1cHIuiEO+5cgFUfbS5sih0gsgyCac lTs9hj7LaS72s3uBZz9DXm0GhkIBTdxtaU7sr1q90OCkIJSSoaKe01z1OirvJsJNUOFZxBylozNv6ePO Q27OPEdjSNwGASfjZNbOFoLJv16S1A7W/geLfbhYnub1MRAYKUg2SvdLOwlGrpb/GltRv3+i0ABFXhde m8Uamkhd3I/hgiQrU4AIaKxvoiyTmDGk6romqRsr8E Y96067WUTLFdTpul2VGjF0ncgTwj1PegwKQUVYZ57VdeKzccfBSoTNKcfvLebKCElaSqmlv8tZ3hitXC ZnsOqMnEfra1IVokI7tachYrUf42PbUJb+s8jygSu/SFXlDhPpHlu2+CTvZqV4sLzfn654W+i/yIy9TM LJxnoR7C1IYKgku/ViAjwTHUnRyS9za1IRi9YENut0 o0nx96gsWICSVHdRM8ExQBSZYxPdFR3vL+hPQkH/0NABm2PqzwRftVe/1jONBODq/FLbKPZxrzhvMQ9G S8JDEXrsf3hukMvYlAYi3MdvnsV3FMyPIntV0PAuhUWBxxax1wMeax08fIWboC3Qp01NB4LF1wavrpBo X0OhWc2Lcyw0QQ/t2amn32cq4u6qn1tTVYlUGkNeVX SBPcu0+9IcvfkUuZEyJxvEDEjVFmn5yMkJjzue0QJSaL/fR3btVW2e3jTTTQuwZjcRj+PdFXb+0y+uY/ s4mmoiNKDIwVRHZc1IN+67djb4eVlzmozhhFWHLAlskL8kgb0wp+CqfmunEd7Jl98T+Tnqu2QSUR+vpW hGvJE7CiWoSA9e9D/ynLpIfjv2Nwp1zwUaH+S6AUT4 Marc/ymxieDBq9+XeiT2g7QsBz+LB4wgEFuwFDwU7acZ9UCztiuUmzItZ5UTgkxSyoO2nLl+8Ut/S02mB [file] oORo7UDCQouB84tDdpO9+ByD//ea0IqbjHWlJsq60Rc1orKSgu6zbbEdYjYdy6Or9xjvEd1ttlp/Y+FIELD GEOLOGIST sIqN9OKHuD2PFIitB4rGJ2Crt9nctsMNuBLFvvbrH9uioR+7zYS6/TJL4C0fhttkV406qByfOCMGcAxC LT/0b7bzNJjjVr8l+qlMznbUv6hSYKaC+uLp1QzD9C txy/BAfoNJqfFi+2g9a70EawV7vCiGpWzoklXVItJhb8F9JavDmaKZvn5QbElu05vunCg88FPD9x6fzb KExLUbsehu2KVD4wQnnLixw5JZAZh8pL/PxOKeGkoQwW2upia6F4IHH5hi8TTNB+yBU8gFe0rJLQrNXT pKi9DRgyxYVAtRQd6/UvO+WohxDafevzcoHLQOK8jg sGn5wRVWw3Ur8lw7aQvxrYItYPyXqugoxTIesgEPH8aPURzwDna+PDu/tzn2l9I0GTzV4Ez07p3zQNI2 +ZqSavWdhznE+7yPQbfBiHmRgCph+oPkDMjMNBt83R/isGsX4/SrMNWW8P8ZHOwGd6QNmqrLic9c8RGn 4NqGthdjMfM6+kpFJZqv0G/F7f9Soi4NWkUMKv7Lmv Z8CESGmpYT4tFdhZkFCZmA+8syQUDzJoV1nJoehLFygzuh0CgvQvP0Sjw/O9K7dYrDzEcn0kj15qnQe/ UtrlfzYiCrQle9kWQqXG+bH3G8n3FOZNgB5lhgA+R8gVNsYySVJj8llIwuO9A1HoV3C/oOKia5XkECC9 Chiqusi+WkEljIq6muRCpdugISv7z3nF16Ne9rHs8xfqXv [file] dcwjFiQhjOZEniyLAdeJzhQJIDCyQrLMy8PbaCNhXfNP1B ID Date Data Source [id number] 03/03/2019 10:00:00 AM EST [facility] Name Value Range Interpretation Code Description Data Amparo rce(s) Supporting Document(s) [facility] SDYCQw9oYtLVZcZsQMBgAlcWTYiaHGegWSXhT7K4OObbAh8UDKjxbcTwNVCkMn6+AJWsGD3yde9oJRVz gMy [file] J2Y5k8GMTVHpij+Iif0g1d78aLnhvKpBiTCnvM2wPYOlJiGYVZS30/aJGPkXiuyWp68/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+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/1Jzy [file] vDGcB3FK9I+MacseRh/Aisha/+9Ch+C10pQ4seq/oU/+6RIZsKX7MraPHXlNYdR/mJX/NnBBAw5tItOZyz nE6fsrsD0HwDnc6/P8U+pCCOJQn1TUtiG3smQ4UgxCPugs5iPwv3R3DKOa39lZ9N1X0y6rEhfFx+Gauri 8ffPqGnVJ255xvv/LuxRe/lfP/aH4pF8B+2B7uDWt5 A9MeiAGruASq7/6uwyj3vEsjdrEPIPP/uYv2NjGzMWj5uq2s4sqUfAKlx5XaXVo1PKx7n+YihDeTI7tK 9LcN+Wr307l2urJr41pZa7odExi7j9bADo11dLp3zI2TeiW6aJXygxCJX2+2fGzn6JrHIGPRtvScY+ZV N4Izw7Ysh9B3EO/avLxVObs7S3JT7Y5eY/rtCe4JTa yurpUVp+0sdsyS/8HaafDwvV5ysWPBjycu+hqcvl0OMiueDJq95PnX8B/okvHzs8/juMUiQbO3Mu5RAH y/z/dvMueN/WD2A2D8gKD5radjlu3EAM64lM8AK6RRVt0xDdVKq3NKJb2tuVGit0Hg5S+TzKXvWe6r+0 eP1k71SYJtaJysBTt11JSldRqaUHK/plQzpXR7KKws opp5TSRfCoFMT7Y8E2f6vxnwWiZeqE7VO0ZmNQsU4WutD0B0hmLc1KfnpDmEgbHNK/FRa+s/SdhU4bfT 0Q3tz7pqsiZsbnUk35WjGlb8e2A/90FyKYt0O8TazRtlVNDJi8g2QQRy3X308ECAbuxS+9uwlsQM0HFW rySqbHSW5I5lld6mnn5XymW5Kdj6+AAyfSCY7xNNle mrbHWorGqu0+9zG3uOOJcfcY6eQApkNWgB1cKUwZSUbualblSCwOtg92UhVbJNP3bKUAh7mNWTOTgyuT NeiF7jv0+Dyf4BnjFR2IThNqhJ+fy9NxDh7W/W9b78aAKb00SyY37rptZDIusqVNWWWBhJoOAvaLH9/0 hrIU89AuUVmqZdP9cC5qg3VhPjVMYNAAVVHQRAAx9W icVyPPjlqeRESzvHRd5QpbY9fMH/BtBoC4csPz08sbNQifxXfmBAMHA06s9hpdb0GA2t9WBM9zmEoauJ gZQseXPPnlbRLjQWECcKqcbTMv/sVGQiaNar0akjMo4YwtbeNXYZ6QGR0ZdteJK+YdfCLn8DX0njL+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 [employer] [file] ZxFnrf7TbS7gILkJ3XVIHvpt3iqsMw9NdfIKoU/ga/bUT5SoXCsv8U0An2PcYax/ZH6CviYo0aQc/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 [file] +M932k+cda teacher+q+zEK8/Wgea4ugXIdJMuU6altxOM948AAWH2u6OdnopFzAj6yHlK+zjkY4HwTMGK6I5iUT [file] by8TIWwetEJF0oKprJ16O0823a9jFe8zNQN3nxk03e3DjCkjaUfAEFLue5eylRZAlUCqYXsX0H/[facility] [file] oY7oW+ZXIyx+vp strategic planning/OIhG3pe2vFuPUuO9LxOjZ1kQdEc9uF7z1qCzShKkvLUltBrI2D1gxuhHUCShEhaOB [file] filenet developer+ZqPpcFD9VYIRHA5ivXi0w/4Yt9csdeGPKQVR2MOR927DGsTGCr/t3rptdThtvuo+zfgJkJOjNet N4jIfgcNnfF7wpV4nBu5LIHOin7kWsRayPrrGx8uIs cMabUWK8EmYyWd3fln5ZqdF/Nky4NCv2M+63TVR+sLt8yKFZoxjgE3sbRVxa+3qFW64UfAUmDOQKw4Jq Ji3v8DkA326Ja26wuUUoXCr6s5QU17hzoMj9RC52wR5bvf7pJK0SF4DJdi9Izehj8BhfAh9eqcGsAU/W /lldH2ap1JOdEBoE6Bn95nxteZ9v5KVBe4pt0QFAGQ GyWrBMZt6h+RpDeRxqGoiPSymCFKnXglX/7XDqswHp/mh4fEcXNN2Lff8wrJrexokTgxZkcE4/5194Va qgGKpQH9wGJujR175dPAtUvdqBmRAfbAqGm8RApuB6ryATjIHoAva0tp5B0xRJMM32Va+7v5qetPu+Tb 51XbuDg2WbSVlFgczP1IkBr5Zwl20AcpfPE43oSmB/ vtp7rs5tqb49hPfjRmQl0oM5ifxcvoOg+QSgY8IyIgP0c5t4LCKw4byqZspAs93sKLyTi7Ps+3eDk3V1 k6+xeI/2SMH9Xhf77Ag+j+ssK5r9SUq4jdCj6yonCnBF1dR1VFxpmHDp95iJhxsswrUtQjddtaWutnDj 30lA9HFJ96M8tg9vxDqlt9zfh7HamD+1JeHz9INfbu KmUVvr/Xtu0mom+r1wtVNqPLS9h9aF+2C+FemVwmBxR2iqa/FmkLfSH5KenuMXji4LpWaRMg6wbDXnHc mH3luqvnlxzFsSdKNbkMVN+vWjpgypRwSWi0wHri7toCfnhp4emY6UEPXik8B2g51XPihRaAHiot0MkY qishqZiglt8FqWy9eXOFEnP/sSgfZMkkhnjkiwnvgn [file] ramirez/nLMk3OFSbLCmsFOTSK8Oi1miSJfSqL5UKIs7RgV cda teacher+duH4fNtvvz4awCxRMinl9AdiN3vX9cmT/lwpkk7UyEVxrdkYQxrq2sv5wrZK+mGZf1T8cXCOMmVpv [file] epVXmqm68im+g8LgnUYtN65r+7qL+Nmt+y4b6ijPt/bnVrczdvnsf+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 Installer+2aR2ShHEdPOM9ssyRsrLvW [file] HzIxcsYtncfxovsHCBletEfhdzxN27oF5Cvpghedhkqzlo4dY65OAfX+lvus634Acn6tjcdlQ0KvMHid Ggj4xZ2r/UrYu9gFs+Kz0BODnYEQ5HK6e4q3t7iOQO8h3dnuFO1f24LnodRRgzUxx+bPgM3MDAbPxCVq rWQyd6sh9uf1VqjURvWWlly4hKZSsEX8l8kF0Lf10/ CEYpwCjTNHRWABfoXlO5LUhmc7fCJB9F34vGbHwKPTasYT1oC3a/BoEO50xvY5URRwtaob+4+Tk+6OjJ 6C1JkKcANb+rLDH+PqNrZ9iy76iEiFSGBvYdNFlkmm2RWTVCj61z1SZ2XipsLf0PvCgKF2/R9jAbIpNR RWnshYBzRuCFPnvj9MMz+Instrumental Teacher+mEJa6qeE6NRKXzqsL ue46iJC6OiUZ36S6B7I4u63rodwQMJ6/ojLMO2xjkJA+VbDbWAtkuZqhaQHPRwPttr7qBZ1ZIgYg3hU1 Chalino+/9RK2mEKRvv32khzdaeyOubzq75P31kOFKqZmIngn/oGGRZhLmGfQXMGLh8YwyiZJE84BEjhvyCp ffQ8oiOJ4UKcUxXlXaDo1c2HBJJsU5PB4put8ZdYK3 6CXiBNuDYAa6f7EFO8E0POSCeWvng4IUI5w+DWCqaUuMgISKjkZSnXgHub89KXg+t8OoNq6ocQvP0rVh 759h1A6Mt46gBGgcvBTiW9Fuy3ac/OoBUnMCAU9AmXtP6Y875IjclFOs1RtOSA75dp5hz0kk6GmPz4Hu S+FioLh9PH8iGj8SXJ1rgWoYQTIj3PuoIxpetTNMBo 5TaxIpGf7rI4loifVz4TOcFQvDfRsE4gVyTvj1vhKbB8C3x0iMGOiprJrwo4wxzULHQmEFwawV7kcTW5 3qobbXVTA1C8zLq5UMEx3ZgigTX7yDqvCEkVhc89n87zABSo9nRcugE7T9H0WHnXvha/OkiKEd+8Q7wW gg1dwF3GrtZYuRsYV7H0lgfacr8qb0GwGklDz9Gy/5 qekyYf+0J2GDGb45o5Y6VL1fY6rT03nqo7i1Kc0rHVN0oChJo4HJ0/je0Q/7J2ySsGm3rfo5w/CH06yG Cx09B+nI4JqBrKPnV/AVQY02ZRk6RLmEehILZ04hR34VnzXHk5hrTbJzEQlXlVj/Y6mphCUgWE3PB5e6 FScQVxxf+o8X0EzqZN136oWsggbXhit6RG065Gz3pQ 5i5iEhkkDFHXqjAxJbkGDlLNTVOowpC0tsAUI0se5yGBXshkpcIBtuGBqCqbFhkYj6cutEtm7376kbqN LANGLEY/YKZfJ+EQJ1TGd8gCusB4aUyA8lH1pzp2hHl1gtJ/SfDfzfC+/AEEIHSxJEnJCHt/LkTG8ikWYsLfo [file] z/Gallardo+89ujD+zUTK+1u3EhQKPD61qX+4ptOrxOjsP4m9ZN+b6K/EMUg0/xHeYq6sVa5SfUatbpN5ac5s8 qCYlQuDUYL0IkfuA+5Z6NlV/mtuojO51lbj2St2Tez hBY+t5wd3M6Id5MlrtPpddSwbsUW3abC1mQsGnUw/p0+yqOv9RvR5BkMgUN8mNgUxlaRRQq51oE+/Aníbal [file] BuZeVIG9hlDugT1EMU6ie4FsKC3Rc4EpdtR2fcMyKYr3Pau5KAWKWbFmDI1F ID Date Data Source [id number] 03/03/2019 09:41:23 AM EST [facility] INFORMATIONPatient MRN Name Date of Age Gend*PT [id number] Vivian Bennett 1970 48 years F ---PT Location Admission Date/Time Visit ID Attending Provider --- --- --- --- EPI ID CSN Admitting Provider [id number] ---02/26/19 Vivian Bennett [id number] female 48 yearsGail Shauna Bennett is referred [...] file Gets together: Not on file Attends hinduism service: Not on file Active member of [...] EST Former Smoker completed Former Smoker eCW1 ([facility]ly [facility]) Smoking 03/01/2020 12:00:00 AM EST Former Smoker completed Former Smoker eCW1 ([facility]) Smoking 01/29/2020 12:00:00 AM EST Former Smoker completed Former Smoker eCW1 ([facility]) Smoking 01/29/2020 12:00:00 AM EST Former Smoker completed Former Smoker eCW1 ([facility]) Smoking 11/17/2019 12:00:00 AM EDT Patient is a former smoker completed Patient is a former smoker MEDENT ([facility], ) Smoking 07/02/2019 12:00:00 AM EDT Former Smoker completed Former Smoker eCW1 ([facility]ly [facility]) Smoking 07/02/2019 12:00:00 AM EDT Former Smoker completed Former Smoker eCW1 ([facility]) Smoking 07/02/2019 12:00:00 AM EDT Former Smoker completed Former Smoker eCW1 ([facility]) Smoking 07/02/2019 12:00:00 AM EDT Former Smoker completed Former Smoker eCW1 ([facility]) Alcohol intake 04/08/2019 12:00:00 AM EST Yes completed [facility] Cigarette pack-years 04/08/2019 12:00:00 AM EST UNK completed [facility] Cigarettes smoked current (pack per day) - Reported 04/08/19 12:00:00 AM EST UNK completed [facility] Smoking 04/08/2019 12:00:00 AM EST Former smoker completed Former smoker [facility] Alcohol intake 03/31/2019 12:00:00 AM EST Yes completed [facility] Cigarette pack-years 03/31/2019 12:00:00 AM EST UNK completed [facility] Cigarettes smoked current (pack per day) - Reported 03/31/19 12:00:00 AM EST UNK completed [facility] Smoking 03/31/2019 12:00:00 AM EST Former smoker completed Former smoker [facility] Vital Signs ID Date Data Source UNK Name Value Range Interpretation Code Description Data Source(s) Diastolic blood pressure 48 mm[Hg] 48 mm[Hg] eCW1 ([facility]) Systolic blood pressure 88 mm[Hg] 88 mm[Hg] e CW1 ([facility]) Body temperature 98.7 [degF] 98.7 [degF] eCW1 ( [facility]) Respiratory rate 18 /min 18 /min eCW1 ([facility]) Heart rate 60 /min 60 /min eCW1 ([facility]) Body mass index (BMI) [Ratio] 23.82 kg/m2 23.82 kg/m2 eCW1 ([facility]) Body height 60 [in_i] 60 [in_i] eCW1 ([facility]) Body weight 122 [lb_av] 122 [lb_av] eCW1 ([facility]) Diastolic blood pressure 82 mm[Hg] 82 mm[Hg] eCW1 ([facility]) Systolic blood pressure 148 mm[Hg] 148 mm[Hg] e CW1 ([facility]) Body temperature 98.1 [degF] 98.1 [degF] eCW1 ( [facility]) Respiratory rate 18 /min 18 /min eCW1 ([facility]) Heart rate 80 /min 80 /min eCW1 ([facility]) Body mass index (BMI) [Ratio] 25.66 kg/m2 25.66 kg/m2 eCW1 ([facility]) Body height 60 [in_i] 60 [in_i] eCW1 ([facility]) Body weight 131.4 [lb_av] 131.4 [lb_av] eCW1 (Count includes the [facility]) Body weight 62.654 kg 62.654 kg MEDENT ([facility], ) [place] body weight 105 [lb_av] 105 [lb_av] MEDEN T ([facility], ) Body mass index (BMI) [Ratio] 26.1 kg/m2 26.1 k g/m2 MEDENT ([facility], ) Body weight 138.12 [lb_av] 138.12 [lb_av] MEDEN T ([facility], ) Body height 61 [in_i] 61 [in_i] MEDENT ([facility], ) 5'1" Diastolic blood pressure 66 mm[Hg] 66 mm[Hg] MEDENT ([facility]) Systolic blood pressure 122 mm[Hg] 122 mm[Hg] M [facility] ([facility]) Body weight 61.463 kg 61.463 kg [facility]) [place] body weight 105 [lb_av] 105 [lb_av] MEDEN T ([facility]) Body mass index (BMI) [Ratio] 25.6 kg/m2 25.6 k g/m2 [facility] Body weight 135.50 [lb_av] 135.50 [lb_av] MEDEN T ([facility]) Body height 61 [in_i] 61 [in_i] [facility]) 5'1" Diastolic blood pressure 62 mm[Hg] 62 mm[Hg] [facility]) Systolic blood pressure 126 mm[Hg] 126 mm[Hg] [facility] ([facility]) Body weight 61.916 kg 61.916 kg [facility] ([facility]) Body mass index (BMI) [Ratio] 25.8 kg/m2 25.8 k g/m2 [facility] ([facility]) Body weight 136.50 [lb_av] 136.50 [lb_av] MEDEN T ([facility]) Body height 61 [in_i] 61 [in_i] [facility] ([facility]) 5'1" Diastolic blood pressure 80 mm[Hg] 80 mm[Hg] [facility] ([facility]) left 86/62 Systolic blood pressure 130 mm[Hg] 130 mm[Hg] [facility] ([facility]) left 86/62 Body height 61 [in_i] 61 [in_i] [facility]) 5'1" Diastolic blood pressure 81 mm[Hg] 81 mm[Hg] [facility] ([facility]) Systolic blood pressure 150 mm[Hg] 150 mm[Hg] [facility] ([facility]) Body weight 64.865 kg 64.865 kg [facility] ([facility]) Body mass index (BMI) [Ratio] 27.0 kg/m2 27.0 k g/m2 MEDENT ([facility], ) Body weight 143.00 [lb_av] 143.00 [lb_av] MEDEN T ([facility], ) Diastolic blood pressure 82 mm[Hg] 82 mm[Hg] eCW1 ([facility]) Systolic blood pressure 126 mm[Hg] 126 mm[Hg] e CW1 ([facility]) Body temperature 96.7 [degF] 96.7 [degF] eCW1 ( [facility]) Respiratory rate 18 /min 18 /min eCW1 ([facility]) Heart rate 91 /min 91 /min eCW1 ([facility]) Body mass index (BMI) [Ratio] 29.45 kg/m2 29.45 kg/m2 W1 ([facility]) Body height 60 [in_us] 60 [in_us] eCW1 ([facility]) Body weight Measured 150.8 [lb_av] 150.8 [lb_av ] eCW1 ([facility]) Oxygen saturation in Arterial blood by Pulse oximetry 95 % 95 % [facility] Respiratory rate 18 /min 18 /min [facility] Body temperature 36.67 Geeta 36.67 Geeta [facility] Heart rate 72 /min 72 /min [facility] Diastolic blood pressure 74 mm[Hg] 74 mm[Hg] [facility] Systolic blood pressure 116 mm[Hg] 116 mm[Hg] [facility] Body mass index (BMI) [Ratio] 27.44 kg/m2 27.44 kg/m2 [facility] Body weight 68.04 kg 68.04 kg [facility] Body height 157.5 cm 157.5 cm [facility] Diastolic blood pressure 76 mm[Hg] 76 mm[Hg] eCW1 ([facility]) Systolic blood pressure 124 mm[Hg] 124 mm[Hg] e CW1 ([facility]) Body temperature 98.4 [degF] 98.4 [degF] eCW1 ( [facility]) Respiratory rate 18 /min 18 /min eCW1 ([facility]) Heart rate 82 /min 82 /min eCW1 ([facility]) Body mass index (BMI) [Ratio] 30.35 kg/m2 30.35 kg/m2 eCW1 ([facility]) Body height 60 [in_us] 60 [in_us] eCW1 ([facility]) Body weight Measured 155.4 [lb_av] 155.4 [lb_av ] eCW1 ([facility]) Oxygen saturation in Arterial blood by Pulse oximetry 94 % 94 % [facility] Body mass index (BMI) [Ratio] 28.88 kg/m2 28.88 kg/m2 [facility] Body weight 71.623 kg 71.623 kg [facility] Body height 157.5 cm 157.5 cm [facility] Heart rate 80 /min 80 /min [facility] Diastolic blood pressure 72 mm[Hg] 72 mm[Hg] [facility] Systolic blood pressure 124 mm[Hg] 124 mm[Hg] [facility] Diastolic blood pressure 70 mm[Hg] 70 mm[Hg] eCW1 ([facility]) Systolic blood pressure 130 mm[Hg] 130 mm[Hg] e CW1 ([facility]) Body temperature 97.7 [degF] 97.7 [degF] eCW1 ( [facility]) Respiratory rate 18 /min 18 /min eCW1 ([facility]) Heart rate 83 /min 83 /min eCW1 ([facility]) Body mass index (BMI) [Ratio] 30.66 kg/m2 30.66 kg/m2 W1 ([facility]) Body height 60 [in_us] 60 [in_us] eCW1 ([facility]) Body weight Measured 157 [lb_av] 157 [lb_av] eC W1 ([facility]) Body weight 71.669 kg 71.669 kg [facility]) Body mass index (BMI) [Ratio] 29.9 kg/m2 29.9 k g/m2 [facility] ([facility]) Body weight 158.00 [lb_av] 158.00 [lb_av] [facility] Body height 61 [in_i] 61 [in_i] [facility]) 5'1" Diastolic blood pressure 78 mm[Hg] 78 mm[Hg] [facility]) Systolic blood pressure 90 mm[Hg] 90 mm[Hg] [facility] ([facility]) Body weight 73.030 kg 73.030 kg [facility]) Body mass index (BMI) [Ratio] 30.4 kg/m2 30.4 k g/m2 [facility] ([facility]) Body weight 161.00 [lb_av] 161.00 [lb_av] [facility] Body height 61 [in_i] 61 [in_i] [facility]) 5'1" Diastolic blood pressure 82 mm[Hg] 82 mm[Hg] [facility]) Systolic blood pressure 124 mm[Hg] 124 mm[Hg] [facility] ([facility]) Patient Treatment Plan of Care Planned Activity Planned Date Details Description Data Source (s) Albuterol Sulfate HFA 108 (90 Base) MCG/ACT 01/14/2020 12:00:00 AM EST eCW1 ([facility]) Albuterol Sulfate HFA 108 (90 Base) MCG/ACT 01/14/2020 12:00:00 AM EST eCW1 ([facility]ly [facility]) BuPROPion HCl ER (Smoking Det) 150 MG 06/15/2019 12:00:00 AM EDT eCW1 ([facility]) Acetaminophen 325 MG / Oxycodone Hydrochloride 5 MG Or al Tablet 04/10/2019 12:00:00 AM EST [facility] pantoprazole 40 MG Delayed Release Oral Tablet 04/02/2019 12:00:00 AM EST eCW1 (Formerly [facility]) Drisdol 1.25 MG (52928 UT) 03/09/2019 12:00:00 AM EST [id number] (Formerly [facility]) Simvastatin 40 MG Oral Tablet 02/13/2019 12:00:00 AM EST [facility] clopidogrel 75 MG Oral Tablet 02/13/2019 12:00:00 AM EST [facility] Aspirin 81 MG Delayed Release Oral Tablet 02/13/2019 12:00:00 AM ES T [facility]
[2020-03-09 14:19] LABS: BASO % 0.3 % (0.0-1.0); EOS % 0.1 % (0.0-3.0); HEMATOCRIT 33.9 % (36.0-47.0); HEMOGLOBIN 10.7 g/dl (12.0-15.5); LYMPH # 1.1 10^3/uL (1.5-5.0); MEAN CORPUSCULAR HGB CONC 31.6 g/dl (32.0-36.5); MEAN CORPUSCULAR VOLUME 98.3 fl (80.0-96.0); MONO # 0.7 10^3/uL (0.0-0.8); MONO % 5.3 % (0.0-5.0); NEUTROPHILS # 10.5 10^3/uL (1.5-8.5); NEUTROPHILS % 84.9 % (36.0-66.0); PLATELET COUNT, AUTOMATED 679 10^3/uL (150-450); RED BLOOD COUNT 3.45 10^6/uL (4.00-5.40); WHITE BLOOD COUNT 12.4 10^3/uL (4.0-10.0)
--- NOTE | 2020-03-09 14:24 | REP ---
INDICATION: b/l le edema. COMPARISON: None. TECHNIQUE: Multiple ultrasonographic images of the deep venous structures of the bilateral thigh were obtained from the common femoral vein to the popliteal vein along with Doppler interrogation and color flow Doppler images. FINDINGS: There is no abnormal echogenic material seen within any of the visualized deep venous structures that would suggest acute thrombosis. Coaptation is unremarkable throughout. Doppler interrogation shows an expected response to respiratory variability and augmentation. The color flow images show what appears to be a normal vascular pattern throughout. IMPRESSION: There is no ultrasonographic evidence of deep venous thrombosis involving any of the visualized deep venous structures of the bilateral thigh, as described above. <Electronically signed by Andriy Gamez > 03/09/20 [id number]
[2020-03-09 14:37] LABS: INR 0.98; PROTHROMBIN TIME 13.2 SECONDS (12.5-14.3)
[2020-03-09 14:38] LABS: PARTIAL THROMBOPLASTIN TIME 36.2 SECONDS (24.2-38.5)
[2020-03-09 14:53] LABS: ALT/SGPT 12 U/L (12-78); AMYLASE 46 U/L (25-115); BILIRUBIN,DIRECT 0.1 MG/DL (0.0-0.2); BILIRUBIN,TOTAL 0.3 MG/DL (0.2-1.0); BLOOD UREA NITROGEN 10 MG/DL (7-18); CALCIUM LEVEL 8.7 MG/DL (8.5-10.1); CARBON DIOXIDE LEVEL 30 MEQ/L (21-32); CHLORIDE LEVEL 107 MEQ/L (98-107); CK-MB VALUE MASS < 1.0 NG/ML (<3.6); CPK CREATINE PHOSPHOKINASE 27 U/L (26-192); CREATININE FOR GFR 0.38 MG/DL (0.55-1.30); GLOMERULAR FILTRATION RATE > 60.0 (>51); GLUCOSE, FASTING 82 MG/DL (70-100); LIPASE 103 U/L (73-393); NT-PRO BNP 1815 PG/ML (<125); SODIUM LEVEL 142 MEQ/L (136-145); TOTAL PROTEIN 6.3 GM/DL (6.4-8.2); TROPONIN I < 0.02 NG/ML (< 0.10)
[2020-03-09] MEDS ORDERED: ISOVUE-370 76% 100ML VIAL As Ordered ONE (15:00)
[2020-03-09] MEDS ORDERED: MORPHINE 4 MG/ML 1ML VIAL/SYRINGE (J2270) IV ONE (15:45)
[2020-03-09] MEDS ORDERED: FUROSEMIDE 20MG/2ML VIAL (J1940) IV ONE (15:45)
[2020-03-09] MEDS ORDERED: ONDANSETRON 4MG/2ML VIAL IV ONE (15:45)
--- NOTE | 2020-03-09 15:53 | REP ---
INDICATION: palpitations, l/e edema, abd pain, wt loss COMPARISON: 01/21/2019. TECHNIQUE: CT Scan of the abdomen and pelvis was performed with intravenous administration of 100 cc of Isovue 370, without oral contrast. FINDINGS: Liver: Tiny hypodensity in the posterior segment of the right lobe of the liver probably represents a tiny cyst. Length of the liver is approximately 17.2 cm, mildly prominent. Gallbladder: Unremarkable. Common bile duct is slightly prominent in size 8 mm in maximum diameter. Spleen: Normal. Adrenals: Normal. Pancreas: Normal. Kidneys: Normal. Free fluid: None. Abdominal aorta: No aneurysm or dissection. Distal abdominal aorta is ectatic, AP diameter is 2.8 cm maximally. Adenopathy: Multiple mildly prominent periaortic and inguinal lymph nodes are likely reactive.. Osseous structures: There are degenerative changes of the spine without compression deformity. Pelvis: At the tip of the cecum and extending inferiorly into the pelvis there is a large abscess. This air and fluid collection demonstrates an enhancing rind and the superior margin is somewhat ill-defined. It extends inferiorly beneath the sigmoid colon and extends into the left pelvis. Is markedly lobulated in shape. Maximum AP diameter is approximately 11 cm and transverse 8.6 cm. There is diffuse thickening of the cecum and inferior right colon. I suspect the findings are due to air ruptured appendicitis with walled-off abscess formation. There is diffuse thickening of the sigmoid colon with multiple sigmoid diverticula present. This thickening is likely due to chronic diverticulitis and there may be an element of thickening due to the pelvic inflammatory changes. Uterus is present in the left pelvis. Urinary bladder is mildly distended. I see no free intraperitoneal air. There is a small midline ventral hernia below the level of the umbilicus containing fat. IMPRESSION: Large pelvic abscess extending inferiorly from the region of the cecum, extending into the inferior right and left pelvis. A normal appendix is not visualized. I suspect the abscess is due to a ruptured appendicitis with abscess formation. Lower right colon and cecum are diffusely thickened, as is the sigmoid colon, likely inflammatory.. There are multiple sigmoid diverticula present. CT-guided drainage could be performed using a left gluteal approach. <Electronically signed by Leif Coleman > 03/09/20 [id number]
[2020-03-09] MEDS ORDERED: PIPERACILLIN/TAZOBACTAM SOD 3.375 GM in D5W MINI-BAG PLUS 50 ML IV ONE (17:00)
[2020-03-09] MEDS ORDERED: SERT-138 PO (17:09)
[2020-03-09] MEDS ORDERED: PROAAER10 INH (17:09)
[2020-03-09 17:48] LABS: RSV AMPLIFICATION NEGATIVE (NEGATIVE)
[2020-03-09] MEDS ORDERED: ENOXAPARIN 40MG/0.4ML SYRINGE (J1650 PER 10MG) SC ONE (18:00)
[2020-03-09] MEDS ORDERED: ONDANSETRON 4MG/2ML VIAL IV PRN (18:00)
--- OUTSIDE RECORDS SUMMARY | 2020-03-09 18:05 | CCD ---
Author Author [facility] Organization [facility] Address Unknown Phone Unavailable Care Team Providers Care Supervisor Lens Generating Name Role Phone Sara Kennedy MD Unavailable Unavailable CathytrandSara MD Unavailable Unavailable CederstrandSara MD Unavailable Unavailable CathytranSara kiser MD Unavailable Unavailable CathytrandSara MD Unavailable Unavailable Cederstrand, Sara Larkin MD Unavailable Unavailable CedserafintrandSara MD Unavailable Unavailable Cederstrand, Sara Larkni MD Unavailable Unavailable CathytrandSara MD Unavailable Unavailable [...] Unavailable Unavailable Brandon Grier MD Unavailable Unavailable Barndon Grier MD Unavailable Unavailable Brandon Grier MD [...] MAINI, VANNESSA MD Unavailable Unavailable Brandon Frias ADVANCED PRACTICE NURSE PSYCHOTHERAPIST, CNM Unavailable Unavailable Brandon Frias ADVANCED PRACTICE NURSE PSYCHOTHERAPIST, CNM Unavailable Unavailable Brandon Frias ADVANCED PRACTICE NURSE PSYCHOTHERAPIST, CNM Unavailable Unavailable Frias, M Ana ADVANCED PRACTICE NURSE PSYCHOTHERAPIST, CNM Unavailable Unavailable Frias, M Ana ADVANCED PRACTICE NURSE PSYCHOTHERAPIST, CNM Unavailable Unavailable Frias, M Ana ADVANCED PRACTICE NURSE PSYCHOTHERAPIST, CNM Unavailable Unavailable Frias, M Ana ADVANCED PRACTICE NURSE PSYCHOTHERAPIST, CNM Unavailable Unavailable Frias, M Ana ADVANCED PRACTICE NURSE PSYCHOTHERAPIST, CNM Unavailable Unavailable Frias, M Ana ADVANCED PRACTICE NURSE PSYCHOTHERAPIST, CNM Unavailable Unavailable Frias, M Ana ADVANCED PRACTICE NURSE PSYCHOTHERAPIST, CNM Unavailable Unavailable Frias, M Ana ADVANCED PRACTICE NURSE PSYCHOTHERAPIST, CNM Unavailable Unavailable Frias, M Ana ADVANCED PRACTICE NURSE PSYCHOTHERAPIST, CNM Unavailable Unavailable Frias, M Ana ADVANCED PRACTICE NURSE PSYCHOTHERAPIST, CNM Unavailable Unavailable Frias, M Ana ADVANCED PRACTICE NURSE PSYCHOTHERAPIST, CNM Unavailable Unavailable Frias, M Ana ADVANCED PRACTICE NURSE PSYCHOTHERAPIST, CNM Unavailable Unavailable Frias, M Ana ADVANCED PRACTICE NURSE PSYCHOTHERAPIST, CNM Unavailable Unavailable Frias, M Ana ADVANCED PRACTICE NURSE PSYCHOTHERAPIST, CNM Unavailable Unavailable Frias, M Ana ADVANCED PRACTICE NURSE PSYCHOTHERAPIST, CNM Unavailable Unavailable Frias, M Ana ADVANCED PRACTICE NURSE PSYCHOTHERAPIST, CNM Unavailable Unavailable Frias, M Ana ADVANCED PRACTICE NURSE PSYCHOTHERAPIST, CNM Unavailable Unavailable Frias, M Ana ADVANCED PRACTICE NURSE PSYCHOTHERAPIST, CNM Unavailable Unavailable Frias, M Ana ADVANCED PRACTICE NURSE PSYCHOTHERAPIST, CNM Unavailable Unavailable Frias, M Ana ADVANCED PRACTICE NURSE PSYCHOTHERAPIST, CNM Unavailable Unavailable Frias, M Ana ADVANCED PRACTICE NURSE PSYCHOTHERAPIST, CNM Unavailable Unavailable Frias, M Ana ADVANCED PRACTICE NURSE PSYCHOTHERAPIST, CNM Unavailable Unavailable Frias, M Ana ADVANCED PRACTICE NURSE PSYCHOTHERAPIST, CNM Unavailable Unavailable Frias, M Ana ADVANCED PRACTICE NURSE PSYCHOTHERAPIST, CNM Unavailable Unavailable Frias, M Ana ADVANCED PRACTICE NURSE PSYCHOTHERAPIST, CNM Unavailable Unavailable Frias, M Ana ADVANCED PRACTICE NURSE PSYCHOTHERAPIST, CNM Unavailable Unavailable Frias, M Ana ADVANCED PRACTICE NURSE PSYCHOTHERAPIST, CNM Unavailable Unavailable Frias, M Ana ADVANCED PRACTICE NURSE PSYCHOTHERAPIST, CNM Unavailable Unavailable Frias, M Ana ADVANCED PRACTICE NURSE PSYCHOTHERAPIST, CNM Unavailable Unavailable Frias, M Ana ADVANCED PRACTICE NURSE PSYCHOTHERAPIST, CNM Unavailable Unavailable SEMEL, Jinny NGO MD [...] A JENI CHEN Unavailable Unavailable SEMEL, A JEIN CHEN Unavailable Unavailable SEMEL, A JENI CHEN [...] is protected by Article 27-F of the [facility] Public Health law. If you continue you may have access to information: Regarding HIV / AIDS; Provided by facilities licensed or operated by the [facility] Office of Mental Health; or Provided by the [facility] Office for People With Developmental Disabilities. If such information is present, then the following [facility] mandated warning applies: This information has [...] law may result in a fine or group home sentence or both. A general authorization for the release of medical or other information is NOT sufficient authorization for further disc losure. Allergies and Adverse Reactions Type Description Substance Reaction Status Data Source(s ) Propensity to adverse reactions NICKEL nickel sulfate Active [facility] Family History Family Member Name Family Member Gender Family Member Status Date o f Status Description Data Source(s) Unknown Unknown Problem MEDENT ([facility]) Encounters Encounter Providers Location Date Indications Data Source(s ) Unknown [address] [place] [address] 03/03/2020 12:00:00 AM EST eCW1 ([facility]) Outpatient [address] [place] [address] 03/01/2020 12:00:00 AM EST eCW1 ([facility]) Unknown [address] [facility] [address] [address] 02/16/2020 12:00:00 AM EST eCW1 ([facility]) Outpatient [address] [address] 01/29/2020 12:00:00 AM EST eCW1 ([facility]) Unknown [address] [address] 01/27/2020 12:00:00 AM EST eCW1 ([facility]) Unknown [address] [address] 01/12/2020 12:00:00 AM EST eCW1 ([facility]) Unknown [address] [facility] [place] [address] 12/15/2019 12:00:00 AM EDT eCW1 ([facility]) Outpatient Attender: Chaya Sewell/Jhonathan/Wesly/ Reindl 10/19/2019 03:45:00 PM EDT MEDENT ([facility]) Outpatient Referrer: Ana Frias ADVANCED PRACTICE NURSE PSYCHOTHERAPIST, CN 08/07/2019 06:38 :00 AM EDT [facility] [place] [address] [facility] [place] [address] 08/06/2019 12:00:00 AM EDT eCW1 ([facility]) Outpatient Attender: Shannan Grier MD [id number] 08/04/2019 12:00:0 0 AM EDT [facility] Outpatient Attender: Madiha Sewell/Jhonathan/Wesly/R eindl 08/03/2019 09:30:00 AM EDT MEDENT ([facility]) [place] [address] [facility] [place] [address] 07/02/2019 12:00:00 AM EDT eCW1 ([facility]) [facility] [place] [address] [facility] [address] [place] [address] 06/15/2019 12:00:00 AM EDT eCW1 ([facility]) [facility] [place] [address] [facility] [address] [place] [address] 06/10/2019 12:00:00 AM EDT eCW1 ([facility]) Outpatient Attender: Shannan Grier MD [id number] 12:00:00 AM EDT - 05/05/2019 11:45:48 AM EDT [facility] Outpatient Attender: KEYANNA CHRISTIAN [id number] 04/17/2019 12:00:00 AM EST - 04/17/2019 02:55:59 PM [facility] Inpatient Attender: Shannan Grier MDAdmi tter: VANNESSA MARSHALL MDReferrer: Shannan Grier MD [id number] 04/07/2019 09:45:00 AM EST - 04/10/2019 05:37:00 PM [facility] Patient discharged. [facility] [address] [place] [address] 04/02/2019 12:00:00 AM EST eCW1 ([facility]) Outpatient Attender: Shannan Grier MDReferrer: Shannan Grier MD MOB-MOB.PAT 03/31/2019 12:00:00 AM EST - 03/31/2019 01:42:47 PM [facility] Outpatient Attender: Shannan Grier MD [id number] [id number] 12:00:00 AM EST - 03/24/2019 09:22:32 AM [facility] Referrer: JENI VALDES MD 03/19/2019 08:20:01 PM EST [facility] Referrer: JENI VALDES MD 03/19/2019 08:20:01 PM EST [facility] Referrer: JENI VALDES MD 03/19/2019 08:20:01 PM EST [facility] [address] [address] 03/09/2019 12:00:00 AM EST eCW1 ([facility]) Outpatient Attender: Shannan Grier MD [id number] 12:00:00 AM EST - 03/03/2019 09:46:25 AM EST [facility] [place] [address] [place] [address], [facility] [address] 02/13/2019 12:00:00 AM EST eCW1 ([facility]) [address] [place] [address] 02/09/2019 12:00:00 AM EST eCW1 ([facility]) Outpatient Referrer: Ana Frias ADVANCED PRACTICE NURSE PSYCHOTHERAPIST, CNM 02/05/2019 09:08 :00 PM EST [facility] Outpatient Attender: FOZIA Sewell/Jhonathan/Wesly/Lenore indl 01/14/2019 08:00:00 AM EST MEDENT ([facility] Immunizations Vaccine Date Status Description Data Source(s) influenza, recombinant, quadrIvalent,injectable, prese rvative free 01/29/2020 04:36:00 PM EST completed eCW1 ([facility]) influenza, recombinant, quadrIvalent,injectable, prese rvative free 01/29/2020 04:36:00 PM EST completed eCW1 ([facility]) influenza, recombinant, quadrIvalent,injectable, prese rvative free 01/29/2020 04:36:00 PM EST completed eCW1 ([facility]) influenza, recombinant, quadrIvalent,injectable, prese rvative free 01/29/2020 04:36:00 PM EST completed eCW1 ([facility]) Medications Medication Brand Name Start Date Product [...] Sulfate HFA 108 (90 Base) MCG/ACT eCW1 ([facility]) Albuterol Sulfate HFA 108 (90 Base) MCG/ACT Albuterol Sulfate HFA 108 (90 Base) MCG/ACT 01/14/2020 12:00:00 AM EST 1.0 {puff_as_needed} active Albuterol Sulfate HFA 108 (90 Base) MCG/ACT eCW1 ([facility]) Albuterol Sulfate HFA 108 (90 Base) MCG/ACT Albuterol Sulfate HFA 108 (90 Base) MCG/ACT 01/14/2020 12:00:00 AM EST 1.0 {puff_as_needed} active Albuterol Sulfate HFA 108 (90 Base) MCG/ACT eCW1 ([facility]) Albuterol Sulfate HFA 108 (90 Base) MCG/ACT Albuterol Sulfate HFA 108 (90 Base) MCG/ACT 01/14/2020 12:00:00 AM EST 1.0 {puff_as_needed} active Albuterol Sulfate HFA 108 (90 Base) MCG/ACT eCW1 ([facility]) Albuterol Sulfate HFA 108 (90 Base) MCG/ACT Albuterol Sulfate HFA 108 (90 Base) MCG/ACT 01/14/2020 12:00:00 AM EST 1.0 {puff_as_needed} active Albuterol Sulfate HFA 108 (90 Base) MCG/ACT eCW1 ([facility]) Albuterol Sulfate HFA 108 (90 Base) MCG/ACT Albuterol Sulfate HFA 108 (90 Base) MCG/ACT 01/14/2020 12:00:00 AM EST 1.0 {puff_as_needed} active Albuterol Sulfate HFA 108 (90 Base) MCG/ACT eCW1 ([facility]) 40 mg 12/15/2019 12:00:00 AM EDT tablet [...] active 1 tablet in the morning eCW1 ([facility]) 150 mg 06/15/2019 12:00:00 AM EDT tablet extended release 12 hr 30 TAKE ONE TABLET BY MOUTH EVERY MORNING TAKE ONE TABLET BY MOUTH EVERY MORNING SOLD: 06/19/2019 [facility] [id number] 0.3 ML Epinephrine 1 MG/ML Auto-Injector EPINEPHRI [...] TABLET BY MOUTH EVERY DAY SOLD: 05/29/2019 [facility] 5-325 mg 04/17/2019 12:00:00 AM EST [...] MAXIMUM DAILY DOSE = 4 SOLD: 04/14/2019 [facility] 5-325 mg 04/12/2019 12:00:00 AM EST tablet 10 TAKE 1 TABLET BY MOUTH EVERY 6 HOURS NEEDED MAXIMUM DAILY DOSE = 4 TABLETS TAKE 1 TABLET BY MOUTH EVERY 6 HOURS NEEDED MAXIMUM DAILY DOSE = 4 TABLETS SOLD: 04/12/2019 [facility] Acetaminophen 325 MG / Oxycodone Hydroch loride 5 MG Oral Tablet oxyCODONE- acetaminophen (PERCOCET) 5-325 MG per tablet oxyCODONE-acetaminophen (PERCOCET) 5-325 MG per tablet 04/10/2019 12:00:00 AM EST 1 {tbl} Oral active Take 1 tablet by mouth every 6 (six) hours as needed Max Daily Amount: 4 tablets [facility] 5-325 mg 04/10/2019 12:00:00 AM EST tablet 5 TAKE 1 TABLET BY MOUTH EVERY 6 HOURS NEEDED FOR PAIN MAXIMUM DAILY DOSE = 4 TABLETS TAKE 1 TABLET BY MOUTH EVERY 6 HOURS NEEDED FOR PAIN MAXIMUM DAILY DOSE = 4 TABLETS SOLD: 04/11/2019 [facility] morphine NURSE GYNECOLOGY 1 mg/mL 04/09/2019 02:00:00 PM EST Intraven ous aborted Intravenous, Continuous, Starting Gosia 04/09/19 at 1400, For 122 hours, Post-op [facility] Medication administered onsite Magnesium Hydroxide 80 MG/ML Oral Suspen pb magnesium hydroxide (MILK OF MAGNESIA) 400 MG/5ML suspension 30 mL magnesium hydroxide (MILK OF MAGNESIA) 4 00 MG/5ML suspension 30 mL 04/09/2019 07:31:23 AM EST 30 mL Oral active 30 mL, Oral, Daily PRN, constipation, Starting Gosia 04/09/19 at 0731
Give one dose this am
[facility] Medication administered onsite Docusate Sodium 100 MG Oral Capsule docusate sodium (C OLACE) capsule 100 mg docusate sodium (COLACE) capsule 100 mg 04/08/2019 09:00:00 PM EST 100 mg Oral active 100 mg, Oral, 2 times daily, First dose on Sat04/08/19 at 2100
hold for loose stools
[facility] Medication administered onsite clopidogrel 75 MG Oral Tablet clopidogrel (PLAVIX) tab let 75 mg clopidogrel (PLAVIX) tablet 75 mg 04/08/2019 05:00:00 PM EST 75 mg Oral active 75 mg, Oral, Daily, First dose on Sat04/08/19 at 1700 [facility] Medication administered onsite Simvastatin 40 MG Oral Tablet simvastatin (ZOCOR) tabl et 40 mg simvastatin (ZOCOR) tablet 40 mg 04/08/2019 05:00:00 PM EST 40 mg Oral active 40 mg, Oral, Daily, First dose on Sat04/08/19 at 1700 [facility] Medication administered onsite Aspirin 81 MG Delayed Release Oral Tablet aspirin EC t ablet 81 mg aspirin EC tablet 81 mg 04/08/2019 05:00:00 PM EST 81 mg Oral activ e 81 mg, Oral, Daily, First dose on Sat04/08/19 at 1700 [facility] Medication administered onsite Sertraline 100 MG Oral Tablet sertraline (ZOLOFT) tabl et 100 mg sertraline (ZOLOFT) tablet 100 mg 04/08/2019 05:00:00 PM EST 100 mg Oral active 100 mg, Oral, Daily, First dose on Sat04/08/19 at 1700 [facility] Medication administered onsite pantoprazole 40 MG Delayed Release Oral Tablet pantoprazole (PROTONIX) EC tablet 40 mg pantoprazole (PROTONIX) EC tablet 40 mg 04/08/2019 05:00:[address] 40 mg Oral active Gastroesophageal Reflux Diseas e 40 mg, Oral, Daily, Indications: Gastroesophageal Reflux Disease, First dose on Sat04/08/19 at 1700 [facility] Gastroesophageal Reflux Disease Medication administered onsite morphine NURSE GYNECOLOGY 1 mg/mL 04/08/2019 12:00:00 AM EST Intraven ous aborted Intravenous, Continuous, Starting Sat04/08/19 at 0000, For 161 hours, Post-op [facility] Medication administered onsite normal saline flush 0.9 % injection 3 mL [id number] 04/07/2019 10:00:00 PM EST 3 mL Intravenous active 3 mL , Intravenous, PROTOCOL, First dose on Sat04/07/19 at 2200, Post-op
flush per protocol, D/C Main IV fluid if appropriate
[facility] Medication administered onsite morphine 1 mg/ml NURSE GYNECOLOGY bolus 4 mg [id number] 04/07/2019 06:00:[address] 4 mg Intravenous completed 4 mg, Intrave nous, Once, Sat04/07/19 at 1800, For 1 dose [facility] Medication administered onsite Acetaminophen 325 MG Oral Tablet acetaminophen (TYLENO L) 325 MG tablet 975 mg acetaminophen (TYLENOL) 325 MG tablet 975 mg 04/07/2019 04:00:00 PM EST 975 mg Oral completed 975 mg, Or al, Once, Sat04/07/19 at 1600, For 1 dose, PACU (only)
"Maximum dose of acetaminophen is 4,000 mg from all sources in 24 hours."
[facility] Medication administered onsite morphine NURSE GYNECOLOGY 1 mg/mL 04/07/2019 04:00:00 PM EST Intraven ous aborted Intravenous, Continuous, Starting Sat04/07/19 at 1600, For 7 days, Post-op [facility] Medication administered onsite cefazolin (ANCEF) injection 2 g 04/07/2019 04:00:00 PM EST 2 g Intravenous completed Perioperative Pharmacoprophylaxis 2 g, Intravenous, Administer over 6 Minutes, Every 8 hours (relative), First dose on Sat04/07/19 at 1600, For 48 hours
RN may administer IV push or infuse this medication through syringe adapter set ref [id number]. Flush line after use
[facility] Perioperative Pharmacoprophylaxis Medication administered onsite dextrose 5 % and sodium chloride 0.45 % infusion 9462-5998-0 0 04/07/2019 04:00:00 PM EST Intravenous active at 30 mL/hr, Intravenous, Continuous, Starting Sat04/07/19 at 1600, Post-op
Hep lock with good PO
[facility] Medication administered onsite Acetaminophen 325 MG Oral Tablet acetaminophen (TYLENO L) 325 MG tablet 650 mg acetaminophen (TYLENOL) 325 MG tablet 650 mg 04/07/2019 04:00:00 PM EST 650 mg Oral active 650 mg, Or al, Every 6 hours (relative), First dose on Sat04/07/19 at 1600, Post-op
"Maximum dose of acetaminophen is 4,000 mg from all sources in 24 hours."
[facility] Medication administered onsite heparin (porcine) injection 5,000 Units [id number] 04/07/19 04:00:00 PM EST 5000 U Subcutaneous active 5,000 Units , Subcutaneous, Every 8 hours (scheduled), First dose on Sat04/07/19 at 1600, Post-op
If platelet count is less than 100,000 or hematocrit is less than 25, or if there is a 5 point decrea se in hematocrit, do not give the dose and call physician/designee.
[facility] Medication administered onsite Acetaminophen 325 MG / Oxycodone Hydroch loride 5 MG Oral Tablet oxyCODONE- acetaminophen (PERCOCET) 5-325 MG 1-2 tablet oxyCODONE-acetaminophen (PERCOCET) 5-325 MG 1-2 tablet 04/07/2019 03:36:50 PM EST Oral active 1-2 tablet, Oral, Every 4 hours PRN, moderate pain (4-6), severe pain (7-10), Starting Sat04/07/19 at 1536, For 7 days, Post-op [facility] Medication administered onsite ondansetron (ZOFRAN) injection 4 mg [id number] 04/07/2019 03:36:5 0 PM EST 4 mg Intravenous active 4 mg, In travenous, Every 6 hours PRN, nausea, vomiting, Starting Sat04/07/19 at 1536, Post-op [facility] Medication administered onsite Albuterol 0.83 MG/ML Inhalant Solution a lbuterol (PROVENTIL) nebulizer solution 2.5 mg albuterol (PROVENTIL) nebulizer solution 2.5 mg 2019 03:36:49 PM EST 2.5 mg active 2.5 mg, Nebulization, RT every 4 hours as needed, wheezing, shortness of breath, Starting Sat04/07/19 at 1536, Post-op [facility] Medication administered onsite 2 ML Midazolam 1 MG/ML Injection midazolam (VERSED) in jection 1 mg midazolam (VERSED) injection 1 mg 04/07/2019 02:47:55 PM EST 1 mg Intraveno us completed 1 mg, Intravenous, E very 15 min PRN, anxiety, Starting 04/07/19 at 1447, For 2 doses, PACU (only) [facility] Medication administered onsite HYDROmorphone (DILAUDID) injection 0.5 mg [id number] 04/07/2019 02:47:55 PM EST 0.5 mg Intravenous completed 0. 5 mg, Intravenous, Every 5 min PRN, severe pain (7-10), Starting Sat04/07/19 at 1447, For 2 doses, PACU (only) [facility] Medication administered onsite HYDROmorphone (DILAUDID) injection 0.5 mg [id number] 04/07/2019 01:20:29 PM EST 0.5 mg Intravenous aborted 0.5 mg, Intravenous, Every 5 min PRN, severe pain (7-10), max 4 doses, Starting Sat04/07/19 at 1320, For 4 hours, PACU (only) [facility] Medication administered onsite fentaNYL Citrate (PF) (SUBLIMAZE) injection 25 mcg [id number] 04/07/2019 01:20:29 PM EST 25 ug Intravenous completed 25 mcg, Intravenous, Every 5 min PRN, moderate pain (4 to 6), max 8 doses, Starting Sat04/07/19 at 1320, For 2 hours, PACU (only) [facility] Medication administered onsite heparin (porcine) injection 5,000 Units [id number] 04/07/19 11:00:00 AM EST 5000 U Subcutaneous completed 5,000 Uni ts, Subcutaneous, outbound sales advisor to [employer]up[employer].Ferdinand German 04/07/19 at 1100, For 1 dose, Pre-op
If platelet count is less than 100,000 or hematocrit is less than 30, or there is a 5 point decrease in hematocrit, do not give the dose and call physician/designee
[facility] Medication administered onsite 40 mg 04/02/2019 12:00:00 [...] active Pantoprazole Sodium 40 MG eCW1 ( [facility]) 40 mg 04/02/2019 12:00:00 AM EST tablet,delayed [...] 12:00:00 AM EST active 1 tablet eCW1 ([facility]) pantoprazole 40 MG Delayed Release Oral Tablet Pantopr azole Sodium 40 MG Pantoprazole Sodium 40 MG 04/02/2019 12:00:00 AM EST active 1 tablet eCW1 ([facility]) pantoprazole 40 MG Delayed Release Oral Tablet Pantopr azole Sodium 40 MG Pantoprazole Sodium 40 MG 04/02/2019 12:00:00 AM EST active 1 tablet eCW1 ([facility]) 20 mg 03/18/2019 12:00:00 AM EST capsule,delayed release (DR/EC) 30 TAKE ONE CAPSULE BY MOUTH EVERY DAY FOR 1 MONTH THEN NEEDED TAKE ONE CAPSULE BY MOUTH EVERY DAY FOR 1 MONTH THEN NEEDED SOLD: 03/20/2019 [facility] 17.5-3.13-1.6 gram 03/15/2019 12:00:00 AM EST recon soln 354 USE DIRECTED BY [facility] USE DIRECTED BY [facility] SOLD: 03/16/2019 [facility] 1,250 [...] SOLD: 07/24/2019 [facility] Drisdol 1.25 MG (83652 UT) UNK 03/09/2019 12:00:00 AM EST active 1 capsule eCW1 ([facility]) Ergocalciferol 85281 UNT Oral Capsule [Drisdol] Drisdo l 1.25 MG (11894 UT) Drisdol 1.25 MG (60297 UT) 03/09/2019 12:00:00 AM EST suspended 1 capsule eCW1 ([facility]) Ergocalciferol 54774 UNT Oral Capsule [Drisdol] Drisdo l 1.25 MG (02832 UT) Drisdol 1.25 MG (71582 UT) 03/09/2019 12:00:00 AM EST suspended 1 capsule eCW1 ([facility]) 81 mg 02/14/2019 12:00:00 AM EST tablet,delayed [...] active Take 75 mg by mouth daily [facility] Aspirin 81 MG Delayed Release Oral Table t SM ASPIRIN ADULT LOW STRENGTH 81 MG EC tablet SM ASPIRIN ADULT LOW STRENGTH 81 MG EC tablet 02/14/20 12:00:00 AM EST aborted [facility] Simvastatin 40 MG Oral Tablet simvastatin (ZOCOR) 40 M G tablet simvastatin (ZOCOR) 40 MG tablet 02/13/2019 12:00:00 AM EST 40 mg Oral active Take 40 mg by mouth daily [facility] 90 mcg/actuation 12/26/2018 12:00:00 AM EDT HFA [...] type / Coverage type Policy ID Covered green party ID Covered green party's relationship to cunha Policy Cunha Plan Information [facility] [id number] [id number] [facility] 302/307 [id number] [employer] B [id number] P VYS [id number] [employer] [id number] Spo VYS [employer] [id number] [facility] PPO POS [id number] ANSI-Commercial [id number] ANSI-Commercial [id number] ANSI-Commercial [id number] ANSI-Commercial [id number] ANSI-Commercial [id number] [employer] [place] PPO 302/307 [id number] [id number] ANSI-Commercial [id number] ANSI-Commercial [id number] ANSI-Commercial [id number] ANSI-Commercial [id number] ANSI-Commercial [id number] [employer] B [id number] P [id number] [id number] [employer] [id number] Family Dependent [id number] BCBS/[employer] [id number] Family Dependent [id number] BC[employer] [id number] Family Dependent [id number] [employer] [id number] Family Dependent [id number] [employer] [id number] Family Dependent [id number] [employer] P UNAVAILABLE P UNAV AILABLE Problems, Conditions, and Diagnoses Code Display Name Description Problem Type Effective Dates Data Source(s) K21.9 GERD (gastroesophageal reflux disease) G ERD (gastroesophageal reflux disease) [id number] 04/10/2019 12:00:00 AM [facility] F32.9 Depression Depression [id number] 04/10/2019 12:00:00 AM [facility] I73.9 PVD (peripheral vascular disease) PVD (periphera l vascular disease) [id number] 04/10/2019 12:00:00 AM [facility] Z01.818 [id number] Pre-op evaluation Problem 04/02/2019 12 :00:00 AM [place] [address] ([facility]) Z01.818 [id number] Pre-op evaluation Problem 04/02/2019 12 :00:00 AM [place] [address] ([facility]) K43.2 Incisional hernia, without obstruction o r gangrene Incisional hernia, without obstruction or gangrene [id number] 03/24/2019 12:00:00 AM [facility] E55.9 [id number] Vitamin D deficiency Problem 03/09/2019 12:0 0:00 AM EST [facility] ([facility]) E55.9 [id number] Vitamin D deficiency Problem 03/09/2019 12:0 0:00 AM EST eCW1 ([facility]) Z09 Encounter for follow-up exam ination after completed treatment for conditions other than malignant neoplasm Encounter for follow-up examination afte Diagnosis 05/05/2019 11:07:39 AM EDT [facility] K43.2 Incisional hernia without obstruction or gangrene Incisional hernia without obstruction or Diagnosis 04/17/2019 01:58:05 PM EST [facility] K63.9 Disease of intestine, unspecified Disease of int estine, unspecified Diagnosis 03/03/2019 09:20:51 AM EST [facility] Surgeries/Procedures Procedure Description Date Indications Data Source(s) Immunization: Flublok Quadrivalent (18 years & older) 0.5mL IM (Influenza) 01/29/2020 12:00:00 AM EST eC1 ([facility]) PHYSICIAN TELEPHONE EVALUATION 5-10 MIN 06/15/2019 12: 00:00 AM EDT eCW1 ([facility]) BLOOD COUNT COMPLETE AUTOMATED CBC Timed 04/10/2019 3:42 A M EST 04/10/2019 08:42:00 AM EST [facility] BASIC METABOLIC PANEL CALCIUM TOTAL BASIC METABOLIC PANEL Timed 04/10/2019 3:42 AM EST 04/10/2019 08:42:00 AM [facility] BASIC METABOLIC PANEL CALCIUM TOTAL BASIC METABOLIC PANEL Timed 04/09/2019 4:04 AM EST 04/09/2019 09:04:00 AM [facility] BLOOD COUNT COMPLETE AUTOMATED CBC Timed 04/08/2019 4:02 A M EST 04/08/2019 09:02:00 AM EST [facility] BASIC METABOLIC PANEL CALCIUM TOTAL BASIC METABOLIC PANEL Timed 04/08/2019 4:02 AM EST 04/08/2019 09:02:00 AM [facility] CUL BACT XCPT URINE BLOOD/STOOL AEROBIC ISOL WOUND CULTURE Ro utine 04/07/2019 12:23 PM EST 04/07/2019 05:23:00 PM [facility] CULTURE BACTERIAL ANY SOURCE ANAEROBIC ISO&ID ANAEROBIC CULTURE Timed 04/07/2019 12:23 PM EST 04/07/2019 05:23:00 PM EST [facility] REPAIR FIRST ABDOMINAL WALL HERNIA REPAIR, HERNIA, VE NTRAL, SPIGELIAN, OR INCISIONAL 04/07/2019 12:03 PM EST Incisional hernia, without obstruction or gangrene 12/2019 05:03:00 PM EST - 04/07/2019 06:52:00 PM EST Incisional hernia, without obstruction or gangrene [facility] Incisional hernia, without obstruction o r gangrene POCT I-STAT BETA HCG POCT I-STAT BETA HCG Routine 04/07/2019 10:56 AM EST 04/07/2019 03:56:00 PM EST [facility] POCT VENOUS BLOOD GAS W LETTY POCT VENOUS BLOOD GAS W FLY tovar 04/07/2019 10:51 AM EST 04/07/2019 03:51:00 PM [facility] BLOOD TYPING ABO TYPE AND SCREEN Routine 04/07/2019 10:43 AM EST 04/07/2019 03:43:00 PM EST [facility] ECG ROUTINE ECG W/LEAST 12 LDS TRCG ONLY W/O I&R ECG 12-LEAD Routine 04/07/2019 10:42 AM EST 04/07/2019 03:42:09 PM EST [facility] Results ID Date Data Source TSH 03/01/2020 12:00:00 AM EST W1 ([facility]) Name Value Range Interpretation Code Description Data Amparo rce(s) Supporting Document(s) 0.653 0.358-3.740 THYROID STIMULATING HORM ONE eCW1 ([facility]) ID Date Data Source FREE T4 03/01/2020 12:00:00 AM EST eCW1 ([facility]) Name Value Range Interpretation Code Description Data Amparo rce(s) Supporting Document(s) 1.92 0.76-1.46 FREE T4 [facility] ([facility]) ID Date Data Source Comprehensive Metabolic Profile (CMP) 03/01/2020 12:00:00 AM EST eCW1 ([facility]) Name Value Range Interpretation Code Description Data Amparo rce(s) Supporting Document(s) 91 70-100 GLUCOSE, FASTING eCW1 ([facility]) 0.41 0.55-1.30 CREATININE FOR GFR eCW1 ([facility]) 16 7-18 BLOOD UREA NITROGEN eCW1 ([facility]) 100 98-107 CHLORIDE LEVEL eCW1 ([facility]) > 60.0 >51 GLOMERULAR FILTRATION RATE eCW 1 ([facility]) 3.7 3.5-5.1 POTASSIUM SERUM eCW1 ([facility]) 138 136-145 SODIUM LEVEL eCW1 ([facility]) 14 7-37 AST/SGOT eCW1 ([facility]) 29 21-32 CARBON DIOXIDE LEVEL eCW1 ([facility]) 8.6 8.5-10.1 CALCIUM LEVEL eCW1 ([facility]) 20 12-78 ALT/SGPT eCW1 ([facility]) 2.4 3.2-5.2 ALBUMIN eCW1 ([facility]) 6.4 6.4-8.2 TOTAL PROTEIN eCW1 ([facility]) 0.6 1.2-2.2 ALBUMIN/GLOBULIN RATIO eCW1 ([facility]) 0.5 0.2-1.0 BILIRUBIN,TOTAL eCW1 ([facility]) 126 45-117 ALKALINE PHOSPHATASE eCW1 ([facility]) ID Date Data Source ADM ABDOMEN 1 VIEW (KUB) 03/01/2020 12:00:00 AM EST eCW1 ([facility]) Name Value Range Interpretation Code Description Data Amparo rce(s) Supporting Document(s) ADM ABDOMEN 1 VIEW (KUB) eCW1 ([facility]) ID Date Data Source [id number] 11/10/2019 08:55:00 AM EDT [facility] ([facility] ) Name Value Range Interpretation Code Description Data Amparo rce(s) Supporting Document(s) Blood Urea Nitrogen 11 mg/dL 7-18 Normal (applies to non-nume cande results) [facility] ([facility]) Glucose, Fasting 98 mg/dL 70-100 Normal (applies to non-numeric results) [facility] ([facility]) Creatinine For GFR 0.31 mg/dL 0.55-1.30 Below low normal [facility] ([facility]) Glomerular Filtration Rate Laboratory test result Normal (applies to non- numeric results) [facility]) <content>Units are mL/min/1.73 m2</content>
<content></content>
<content>Chronic Kidney Disease Staging per NKF:</content>
<content></content>
<content>Stage I & II GFR >=60 Normal to Mildly Decreased</content>
<content>Stage III GFR 30- 59 Moderately Decreased</content>
<content>Stage IV GFR 15-29 Severely Decreased</content>
<content>Stage V GFR <15 Very Little GFR Left</content>
<content>ESRD GFR <15 on STEWARD RACETRACK</content>
<content></content> Sodium Level 144 meq/L 136-145 Normal (applies to non-numeric res ults) [facility] ([facility]) Potassium Serum 3.5 meq/L 3.5-5.1 Normal (applies to non-numeric results) [facility] ([facility]) Chloride Level 110 meq/L 98-107 Above high normal [facility] ([facility]) Anion Gap 6 meq/L 8-16 Below low normal [facility] ( [facility]) Carbon Dioxide Level 28 meq/L 21-32 Normal (applies to non-num dave results) [facility]) Calcium Level 8.6 mg/dL 8.5-10.1 Normal (applies to non-numeric re sults) [facility]) ID Date Data Source [id number] 11/10/2019 08:55:00 AM EDT [facility]) Name Value Range Interpretation Code Description Data Amparo rce(s) Supporting Document(s) Red Blood Count 4.21 10 4.00-5.40 Normal (applies to non-numeric results) [facility] ([facility]) White Blood Count 6.5 10 4.0-10.0 Normal (applies to non-numeri c results) [facility] ([facility]) Mean Corpuscular Volume 98.8 fl 80.0-96.0 Above high normal [facility] ([facility]) Hemoglobin 13.5 g/dL 12.0-15.5 Normal (applies to non-numeric resul ts) [facility] ([facility]) Hematocrit 41.6 % 36.0-47.0 Normal (applies to non-numeric resul ts) [facility]) Red Cell Distribution Width 13.5 % 11.5-14.5 Norm al (applies to non-numeric results) [facility] ([facility]) Mean Corpuscular Hemoglobin 32.1 pg 27.0-33.0 Norm al (applies to non-numeric results) [facility] ([facility]) Mean Corpuscular HGB Conc 32.5 g/dL 32.0-36.5 Normal (applies to non-numeric results) [facility] ([facility]) Platelet Count, Automated 205 10 150-450 Normal (applies to non-numeric results) [facility] ([facility]) Nucleated Red Blood Cell % 0.0 % 0-0 Normal (applies to n on-numeric results) [facility]) ID Date Data Source [id number] 08/04/2019 09:29:49 AM EDT [facility] INFORMATIONPatient MRN Name Date of Age Gend*PT [id number] Vivian Bennett 1970 48 years F ---PT Location Admission Date/Time Visit ID Attending Provider --- --- --- --- EPI ID CSN Admitting Provider [id number] ---Subjective:Patient presents to the office for a [...] rce(s) Supporting Document(s) ID Date Data Source [id number] 05/05/2019 01:15:00 PM EDT [facility] Name Value Range Interpretation Code Description Data Amparo rce(s) Supporting Document(s) Follow Up [facility] LUXEUc2sOlWXQwDqFCDfUzrQVZckQXbeKLBaV7O6HWkeTn0CXFqourSuQTYvVu6+WYZmBI9bpn1dYTFb gMy [file] gUEYOUZJoifRqaSh3mjwYjh0ixzweApHQnc6MAC/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/shjIBev1NTDYTgvA5PCuld11FkX4hjHrE/z4 [file] 6rHhEjmvD9WGKVzLT0G8juMK8W0QO0jAN7M1+T72ewuHWjJlrC/qH6MsvGs+rail transportation 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+mGdz/lVLxEtWDZNzp [file] PRACTICE NURSE PSYCHOTHERAPIST+fc4LL [file] ADVANCED PRACTICE NURSE PSYCHOTHERAPIST+h9HA+LclW1sGQ+DFqOS7nUAGupGS3ojaHWznoWlqkv66qOTHe4WBzGY8+CUF0TduWkkSZFPMdNh9I [file] Procurement Buyer/KVdZE9Z7jJg2WIRzIAaNUtmnN/K/er4QGsU3vOG MQn4xkbhtTVJKP59IMVN7EyCos+Xlsf1nnFVcrBr6JfMeBWi7A0eD0/g3BFgQ/1NkmUm0P4b9WS8hH7S rLaaQP9H3L42ljQFLBv9h9bC98m/rP2G4MWCAVtiBoJ9X082xW3nIxITb4bjSybBR11ldj2zmMQusENp 9vcCvY9kM+VFYMZD9/AuSO4GS20FHeRFmob67flGLN ccZN20xDW+UzgiLVO5OZFC12DcStBYdEINXhpD3z/lAi1dSy1itP3NK/tUGYy7gEOlzDuK7Fo2FeNkMh s7geQ+CNuz1SWYBSjZQ/QpJ2+ii1H6/11vPEHad/NWuz6ikFH7FUxHP66Cq9onp4lgp3Es2UKlBVjJdk HIFfCB9218iJmYIfx38CQfEAjVfB3H2ExZtz/l/HMw gpo5beycadfVALmzEqR/rGkkf0BBmrgD6evTzb+BXtCv+q1Ws5fjjy4VP2iLi1ZhK7WJ7CMezmXQVPRJ wxg7hErkmqlAe5um4ejx9OukZ4V4s6o2Q8bpXjYO6p9q3Eot0M9X/lDoxTJOtWxLV52pBvdJc6/ZH3qI nadaPf8/KDuruKi+B7uKKZa9j6ySuREUVOMlTH3oAQ v4yHzyNfSYGWoB4W4cMUECRz8UArJGK+WIiaH6bezm+felipe+/XZa+33+T7vZ+/nJXHEvqD+/kqWtev31y [file] 7DUKo81NDqUQ49xhBVFLviejHruPQL4RuLwcnJpB2UMCkJ0Ud8etJX8Nre+7nKhbvy7eR7AQecw5m/ADVANCED PRACTICE NURSE PSYCHOTHERAPIST [file] 0z9jKyPzf7j9Mq2rbfLAX290mHzGa2bf/music orchestrator+0kQtrr1ARxmM9yywLybN/lDf34lucAM5H8PkvHVL6TH [file] YROfE+19tmK0a+NLhxFSFyGdu3Ebt+3HQGIACZSvmuOUMLSGKLfZWLX+RIVERA/SU0+P486derhwLU5dH/zK PD/soKr+pNkYXJee4UOR7fEIayc0S1osC7+V/SSJUoQWzsdmo3KDNhTNhlp3PqfDmFT3UXIavx9C/pwP fPEr95Jyp0CrLzz3MYtqn3wiJwjqq3Rhkbze0HfG65 q4nmewR2SYjYqFxpENgVpUn6Gz2z4cpUDn3eFLLw8tZxcRG8unVE80Ex8y38+YoPDHFGfnQ49wMOs03z KUhsMMY2cL9J72SeNh3FWvkFYa2vNj5xByuWIHzzoMEHXqiJLyFRL0jVVsragI5c3uOtrnEfo/z3SssV MvGqGgdqz3PdFdv3fXjO7pGg7RSGzJ8A37gN85nF6z NqiLD1qJHi50M+82CleU7xujrBrVVZnVWVrswCctGm7tFSU0pLBDsawRjsHCG4Mb+yFnSgpCGBP+QCmp R7BjDhu+7+k5Tx6Qko3XhfQqjD0sak06a1VVobQ6pHLmuH/qbQh8CjmwwU/yCa3JsZLNvAR5YhIUlU3a qkXSn2vDN3897gRQHpi1LHeq9bEru6CVDZYr9YYZ1i lMHYCMri9cpbgG1szcbBKUskSWXMRpW5Lx4yjK5L10827y8zucEWCfe5fxH1nl1KsIaf59Oa8u2zjgrH vLVTaUcHw1fmPqfiSRI9YAw+TBh9l8OVeYMdgQWCPF3vl2umEejacAaluCHhJMdwCIO2Oe82k+f+qY6l n3BUumkbqAK58l69isf7SxZlr/ZxE9AwKw+awNiSKw d80Jr3aajfpXSfaUMNFvMXfhPCfAvlCLzNl0A8nVuy/pRSDw6ojZZvFRciYvwxKrTemWvIdkyl+fN4e1 iKwTHlku0il2c9pF7Ddkdf9Y9T1gfdzWTAq1ZMuBeMahSGJctL3nk5VmMKnk4jKcrx1csZuhaZXpepkS 10LGLZkXrgl/+pQ6LMysqe3+QZNdbcNmKxvtKrO [file] 7X6syV+GKY7t6+field instructor+S5MVeetnrzhqRn+SPC7VTmxS [file] HJQUqdCZ+m5avOuCTF6yFBuAI9U+C+7ZlCZhYFA4dQSlWV0O5/wdkg4jlRWnb0FD4pn+TD5Tl9KH+Sprinkler Fitter Apprentice [file] 6wVbEdqq+gVpCUSIvpY8wWHf25f0ZLhbk7G0Mlut2u4YSrw1TG5DKcDd5aXdoHd5wIs/6iWpcJ8r/WELL FLOW OPERATOR fMcjjxFoDIzq5g9vGafM3ggW+KzkQ9Gf8FyJlr4jgd79UiekyfIXhfUzPP1ClPy3xw7laDQZdlloWBBQ dxc+NdBumn61Cnm6MTq1cLU3A7hdSkiTvXJpm+5bJ5 VPSJidtthoz4F4lX/Alexi/hFidjg747Ao60pjB4c+PKfXWwzogUVamJ2QyXQ4sIcnQywPWVhVut5o7tOH [file] kcrsMciIDpWM3BQcLlVD5fsc1XVfJ9LTY2zPZiKr3BFZO9YXMjVz9MCRTAI0J= ID Date Data Source [id number] 05/05/2019 11:30:40 AM EDT [facility] NT INFORMATIONPatient MRN Name Date of Age Gend*PT [id number] Vivian Bennett 1970 48 years F ---PT Location Admission Date/Time Visit ID Attending Provider --- --- --- --- EPI ID [facility] Admitting Provider [id number] ---Subjective:Patient presents to the office for a [...] rce(s) Supporting Document(s) ID Date Data Source [id number] 04/20/2019 07:13:13 AM EST [facility] NT INFORMATIONPatient MRN Name Date of Age Gend*PT [id number] Vivian Bennett 1970 48 years F ---PT Location Admission Date/Time Visit ID Attending Provider --- --- --- --- EPI ID CSN Admitting Provider [id number] ---Subjective:This is a patient of Dr Grier [...] soft, non-tender. Incision is clean and dry. [place] removed exceptaround the umbilicus. Skin is noted [...] rce(s) Supporting Document(s) ID Date Data Source [id number] 04/11/2019 06:54:18 AM EST [facility] NT INFORMATIONPatient MRN Name Date of Age Gend*PT [id number] Vivian Bennett Priscila 1970 48 years F IPPT Location Admission Date/Time Visit ID Attending [id number] 04/07/19 0945 --- --- EPI ID CSN Admitting Provider [id number] Vannessa Marshall MD([id number]) Attestation signed by Shannan Grier MD at [...] by mouth dailyvitamin D (Ergocalciferol) 1.25 MG (26985 UT) Caps Take 1 capsule by mouth [...] Value Range Interpretation Code Description Data Amparo [facility](s) Supporting Document(s) ID Date Data Source [id number] 04/10/2019 04:39:42 AM EST [facility] Name Value Range Interpretation Code Description Data Amparo [facility]) Supporting Document(s) SODIUM 141 mmol/L (136-145) [facility] POTASSIUM 4.2 mmol/L (3.6-5.2) [facility] CHLORIDE 105 mmol/L (100-108) [facility] CO2 30 mmol/L (22-31) [facility] ANION GAP 6 mmol/L (7-16) L [facility] UREA NITROGEN 7 mg/dL (7-24) [facility] CREATININE 0.55 mg/dL (0.60-1.00) L [facility] BUN/CREAT RATIO 12.7 RATIO (10.0-20.0) [facility] GLUCOSE 90 mg/dL (70-99) [facility] CALCIUM 8.8 mg/dL (8.4-10.2) [facility] GFR >60 ml/min/1.73m2 (>59) [facility] GFR ( AMER) >60 ml/min/1.73m2 (>59) [facility] GFR INTERPRETATION [facility] --NORMAL KIDNEY FUNCTION OR MILD DISEASE - GFR >OR= 60CHRONIC KIDNEY DISEASE - GFR 15 - 59RENAL FAILURE - GFR <15 Est. GFR calculation based on the MDRDstudy equation, which assumes a steadystate for creatinine. Est. GFR should notbe used for medication dosing. ID Date Data Source [id number] 04/10/2019 04:13:34 AM EST [facility] Name Value Range Interpretation Code Description Data Amparo rce(s) Supporting Document(s) WBC 3.8 10*3/uL (4.1-11.0) L [facility] RBC 3.87 10*6/uL (4.00-5.40) L [facility] HGB 12.3 g/dL (12.0-16.0) [facility] HCT 36.9 % (36.0-47.0) [facility] MCV 95.5 fL (80.0-95.0) H [facility] MCH 31.9 pg (27.0-32.0) [facility] MCHC 33.4 g/dL (32.0-36.0) [facility] RDW 13.9 % (10.5-14.5) [facility] PLT 196 10*3/uL (150-450) [facility] MPV 7.3 fL (7.1-10.7) [facility] ID Date Data Source [id number] 04/09/2019 07:24:51 AM EST [facility] Name Value Range Interpretation Code Description Data Amparo rce(s) Supporting Document(s) SODIUM 139 mmol/L (136-145) [facility] POTASSIUM 4.0 mmol/L (3.6-5.2) [facility] CHLORIDE 103 mmol/L (100-108) [facility] CO2 31 mmol/L (22-31) [facility] ANION GAP 5 mmol/L (7-16) L [facility] UREA NITROGEN 4 mg/dL (7-24) L [facility] CREATININE 0.53 mg/dL (0.60-1.00) L [facility] BUN/CREAT RATIO 7.5 RATIO (10.0-20.0) L [facility] GLUCOSE 100 mg/dL (70-99) H [facility] CALCIUM 8.7 mg/dL (8.4-10.2) [facility] GFR >60 ml/min/1.73m2 (>59) [facility] GFR ( AMER) >60 ml/min/1.73m2 (>59) [facility] GFR INTERPRETATION [facility] [place] --NORMAL KIDNEY FUNCTION OR MILD DISEASE - GFR >OR= 60CHRONIC KIDNEY DISEASE - GFR 15 - 59RENAL FAILURE - GFR <15 Est. GFR calculation based on the MDRDstudy equation, which assumes a steadystate for creatinine. Est. GFR should notbe used for medication dosing. ID Date Data Source [id number] 04/08/2019 06:37:13 AM EST [facility] INFORMATIONPatient MRN Name Date of Age Gend*PT [id number] Vivian Bennett 1970 48 years F SDCXPT Location Admission Date/Time Visit ID Attending [id number] 04/07/19 0945 --- Shannan Grier MD([id number]) EPI ID CSN Admitting Provider [id number] Shannan Grier MD([id number]) [place] [address] OPERATIVE REPORT OPNAME: VIVIAN BENNETT#: [id number] ROOM #: ORPOPL ADMISSION DATE: 04/07/2019DOB: 1970 SEX: F PT TYPE: S SURACCT #: [id number] CARE PHYSICIAN: SHEELA PATE PHYSICIAN: SHANNAN GRIERDATE OF OPERATION: 04/07/2019ATTENDING DOCTOR:Shannan Grier MD.SUPERINTENDENT STEVEDORING:GINO Pinto.PREOPERATIVE DIAGNOSIS:Multiple incisional hernias.POSTOPERATIVE DIAGNOSIS:Multiple incisional hernias.PROCEDURE [...] w pretty butchfredi returned.ROHAN HARP/MARLI Job #: [id number] DOC #: [id number] Name Value Range Interpretation Code Description Data Amparo rce(s) Supporting Document(s) ID Date Data Source [id number] 04/08/2019 07:01:10 AM EST [facility] Name Value Range Interpretation Code Description Data Amparo rce(s) Supporting Document(s) SODIUM 137 mmol/L (136-145) [facility] POTASSIUM 4.4 mmol/L (3.6-5.2) [facility] CHLORIDE 104 mmol/L (100-108) [facility] CO2 28 mmol/L (22-31) [facility] ANION GAP 5 mmol/L (7-16) L [facility] UREA NITROGEN 7 mg/dL (7-24) [facility] CREATININE 0.58 mg/dL (0.60-1.00) L [facility] BUN/CREAT RATIO 12.1 RATIO (10.0-20.0) [facility] GLUCOSE 113 mg/dL (70-99) H [facility] CALCIUM 8.9 mg/dL (8.4-10.2) [facility] GFR >60 ml/min/1.73m2 (>59) [facility] GFR ( AMER) >60 ml/min/1.73m2 (>59) [facility] GFR INTERPRETATION [facility] --NORMAL KIDNEY FUNCTION OR MILD DISEASE - GFR >OR= 60CHRONIC KIDNEY DISEASE - GFR 15 - 59RENAL FAILURE - GFR <15 Est. GFR calculation based on the MDRDstudy equation, which assumes a steadystate for creatinine. Est. GFR should notbe used for medication dosing. ID Date Data Source [id number] 04/08/2019 06:35:50 AM EST [facility] Name Value Range Interpretation Code Description Data Amparo rce(s) Supporting Document(s) WBC 7.9 10*3/uL (4.1-11.0) [facility] [place] RBC 4.22 10*6/uL (4.00-5.40) [facility] HGB 13.5 g/dL (12.0-16.0) [facility] HCT 39.8 % (36.0-47.0) [facility] [place] [address] [place] [address] MCV 94.4 fL (80.0-95.0) [facility] MCH 31.9 pg (27.0-32.0) [facility] MCHC 33.8 g/dL (32.0-36.0) [facility] RDW 14.0 % (10.5-14.5) [facility] PLT 223 10*3/uL (150-450) [facility] MPV 7.5 fL (7.1-10.7) [facility] ID Date Data Source [id number] 04/07/2019 12:33:17 PM EST [facility] Name Value Range Interpretation Code Description Data Amparo rce(s) Supporting Document(s) EKG [facility] FVQKPr3yCcOFAnAbn2ChTnIlIJYoLY5achd7Z9P4eTEmJ9ParUEgg2jcO2WjG8GgHCChDLGBLJ1IoLNr jb2 [file] BSCgo+[id number]= ID Date Data Source [id number] 04/07/2019 12:23:53 PM EST [facility] NT INFORMATIONPatient MRN Name Date of Age Gend*PT [id number] Vivian Bennett 1970 48 years F SDCXPT Location Admission Date/Time Visit ID Attending Provider --- --- --- --- EPI ID CSN Admitting Pr ovider [id number] ---AirwayPatient location during procedure: ORUrgency: electiveDifficult airway: [...] rce(s) Supporting Document(s) ID Date Data Source [id number] 06/02/2019 10:17:55 AM EDT [facility] SPECIMEN DESCRIPTION ABSCESS SUBCUTANEOUSSPECIAL REQUESTS NONEACID FAST SMEAR NO ACID FAST BACILLI (CONCENTRATED SMEAR)CULTURE RESULTS NO ACID FAST BACILLI ISOLATED AFTER 8 WEEKSREPORT STATUS FINAL 06/02/2019 Name Value Range Interpretation Code Description Data Amparo rce(s) Supporting Document(s) ID Date Data Source [id number] 05/12/2019 10:05:30 AM EDT [facility] SPECIMEN DESCRIPTION FLUID ABSCSPECIAL REQUESTS NONECULTURE RESULTS NO FUNGUS ISOLATED AFTER 5 WEEKSREPORT STATUS FINAL 05/12/2019 Name Value Range Interpretation Code Description Data Amparo rce(s) Supporting Document(s) ID Date Data Source [id number] 04/10/2019 01:44:51 PM EST [facility] SPECIMEN DESCRIPTION FLUID ABSC SUBCUTANEOUSSPECIAL REQUESTS NONECULTURE RESULTS NO ANAEROBES ISOLATEDREPORT STATUS FINAL 04/10/2019 Name Value Range Interpretation Code Description Data Amparo rce(s) Supporting Document(s) ID Date Data Source [id number] 04/10/2019 01:44:16 PM EST [facility] SPECIMEN DESCRIPTION ABSCESS SUBCUTANEOUSSPECIAL REQUESTS NONEGRAM STAIN FEW (<10/LPF) WHITE BLOOD CELLS NO BACTERIACULTURE RESULTS NO GROWTHREPORT STATUS FINAL 04/10/2019 Name Value Range Interpretation Code Description Data Amparo rce(s) Supporting Document(s) ID Date Data Source [id number] 04/07/2019 11:09:32 AM EST [facility] Name Value Range Interpretation Code Description Data Amparo rce(s) Supporting Document(s) POC BHCG [facility] <5.0 IU/L [facility] INTERPRETATION:<5.0 NEGATIVE5.0- 25.0 INDETERMINATE>25.0 POSITIVELEVELS BETWEEN 5 AND 25 IU/L MAY INDICATEEARLY AND SHOULD BE REPEATED JONN BLOOD SAMPLE AFTER 48 HOURS.PERFORMED BY [facility] CLINICAL STAFF ID Date Data Source [id number] 04/07/2019 11:09:27 AM EST [facility] Name Value Range Interpretation Code Description Data Amparo rce(s) Supporting Document(s) POC SOURCE [facility] POC TEMPERATURE [facility] POC FIO2 [facility] POC VENOUS PH 7.46 pH (7.33-7.43) H [facility] POC VENOUS PCO2 41.3 MM HG (38.0-50.0) [facility]EN[facility] PO2 36 MM HG (30-50) [facility] POC VENOUS SO2 72 % (60-85) [facility] POC VENOUS BASE EXCESS 5 mmol/L [facility] P[facility] VENOUS HCO3 29.1 MMOL/L (23.0-27.0) H [facility] P[facility] VENOUS TOTAL CO2 30 MMOL/L (24-28) H [facility] PERFOR[facility] BY [facility] CLINICAL STAFF POC HCT 42 % (36.0-47.0) [facility] POC SODIUM 140 MMOL/L (136-145) [facility] POC POTASSIUM 3.8 MMOL/L (3.6-5.2) [facility] POC IONIZED CALCIUM 4.7 MG/DL (4.6-5.3) [facility] POC GLU 96 MG/DL (70-99) [facility] PERFORM LAB [facility] ID Date Data Source [id number] 04/07/2019 10:47:25 AM EST [facility] NT INFORMATIONPatient MRN Name Date of Age Gend*PT [id number] Vivian Bennett 1970 48 years F SDCXPT Location Admission Date/Time Visit ID [facility] --- Shannan Grier MD([id number]) EPI ID CSN Admitting Provider [id number] Shannan Grier MD([id number])H&P reviewed. The patient was examined and there are no changes to the H&P.Signature: NAVA Harpate: April 07, 2019Time: 10:47 AM Name Value Range Interpretation Code Description Data Amparo rce(s) Supporting Document(s) ID Date Data Source [id number] 04/07/2019 11:55:50 AM EST [facility] SPEC EXP DATE 04/10/2019PATI ENT ABO/Rh A POSITIVEANTIBODY SCREEN NEGATIVETESTING SITE PERFORMED AT [address] [place] [id number] Name Value Range Interpretation Code Description Data Amparo rce(s) Supporting Document(s) TYPE AND SCREEN [facility] ID Date Data Source [id number] 03/31/2019 01:39:00 PM EST [facility] NT INFORMATIONPatient MRN Name Date of Age Gend*PT [id number] Vivian Bennett 1970 48 years F OPPT Location Admission Date/Time Visit ID Attending Provider --- --- --- Shannan Grier MD([id number]) EPI ID CSN Admitting Provider [id number] ---OUTPATIENT / OBSERVATIONAL SURGICAL OR INVASIVE PROCEDUREName: [...] 02/13/19Historical Provider, vitamin D, Ergocalciferol, 1.25 MG (53843 UT) CAPS Take 1 capsule by mouth [...] | SpO2 94% | BMI 28.88 kg/m [facility] Frailty Scale :: 3/10 Managing Well (medical problems are well controlled,but are not regularly active beyond routine walking).Stop Bang Questionnaire - Total Score:PHYSICAL EXAM:Airway - 1Mental and Neurological Status: AHLz4VOLSG: Clear to auscultation. No wheezes, rhonchi or crackles.HEART: Rate rhythm regular. S1, S2. No murmur, rub or gallop.ABDOMEN: Bowel sounds positive times four. Sof. Large left abdominal herniatender to palpation. No hepatosplenomegaly. Negative CVAT.EXTREMITIES: Pulses are symmetrical. No edema.NECK no carotid bruit bilaterally.03/31/2019 1:38 PMLyudmiskylar Stevenstiv, ADVANCED PRACTICE NURSE PSYCHOTHERAPIST Name Value Range Interpretation Code Description Data Amparo rce(s) Supporting Document(s) ID Date Data Source [id number] 03/24/2019 09:18:10 AM EST [facility] INFORMATIONPatient MRN Name Date of Age Gend*PT [id number] Vivian Bennett 1970 48 years F ---PT Location Admission Date/Time Visit ID Attending Provider --- --- --- --- EPI ID CSN Admitting Provider [id number] ---Subjective:Patient presents to the office for followup [...] rce(s) Supporting Document(s) ID Date Data Source [id number] 03/18/2019 11:30:00 AM EST [facility] Name Value Range Interpretation Code Description Data Amparo rce(s) Supporting Document(s) EGD-Colonoscopy [facility] DNPADl6wXzQDFcUzTJNfObdVSVbxWDaaSJVzD8N1WXjkLx6CQGlbgoUuGVWlBh2+BJBdBE0svm3hXAYu gMy [file] +PQiksoL/car hostler/8LwL/AbPraCv1UVwebsTpLAx90jfbaQM+p7tJ2LK5Akq1esTiOlAJzwzAFAi4xq+W/A Eg5fKMQK/ku15nKyh2IwXKQygRnd2kPFqtR67p47Ry +Ouqv5r8vGZ9E/it6UiR9Aot4267Qnb681Gw+B+6Pypo2PDO8JiYGVVNtLjwkZN7SS5Ww8+dMBkj/JOSE [file] SALES PROCESS MANAGER+PCzZj9DQtSgY0LFkBE/Vn1a/FBduWc2g9pHWoJ9 gkN3E7fdLhLnvSU0w9mNj53bKo69mWapx+RqX43tn6dF/D5sV+qGzLDKvCcGzIkoAIhiOOonMNjXoFPL GLXqsvoHH/oHyPicOfjSDdOx/38uwVThccbTQMjziXNIW/SFxtHQIRjQp3NZMYCYMXZS3eTgxatGr5WR RyLYwM59zjg7HQXqOwj8yMj1Mc6sM9SWlKztSyH3/H 2GXaay2mO+Ravinder/X5zblkbKEj69E7hitLYBsqgPgOajWT2Z4guhu+7TKC531X/9WQ0FRWqbBdVI8ejGu lMHulQZumcfgQ2Th9iPHghTWqUEmqOFuHbaI6loWDQcCvUAX5igRxEXIhVvEtp5bj5Hc0Q0C4QkP67ka dn4LIXgmIql/xhwxSuDTgcwKEz2P0VaRyeaylpqG4z KrZX6p4GQpIuc9KZpMsa59+2wWPjoA2z4UH1WYQRr2VhQkfUV5gCApnUfyRWYQaSs0672QhhNUw1+6B4 Rz+im2+MfE9Qk08hVMN7k/YCzy+OYqooP4rhh56Qm+TncbRQX8J4BsU+h1tG+KOrqTp5r0rHjISmC6i3 Aci66e8HTe6YFVZCaMnd6WqYpAVqfORxv1eBp2a02s vk+5FR7VF7rjoGH/1rYqONxrb8xRo5QBOWfOBA0o78bxJi2A0MsQ8gYylvRkCnUkJS+HEMGKXGo8mfFr 9pyklFNFEs9fyLeaL8Lm6hIVzIqfZJFv1Hd1VbEN38ttfZUuDZBXHvO3zz8bOvgJraUFI3RR0R/SRsll 0WkAoJdPd8/N1jHvZ7z4jiYidI6UkxAl31ABaw/jUX zx86X6LrVqTqHgmEr2HKWoQLdi/bAZJtNq3rerylt4KGrCfE9+AJRmqjpeESC7yEWKCRAhaeQNEADKTN gs73hjzbeZFBFQ3J4KZNvmNb+b9q7VPsioBXVzUk2Msam6pgPfVBYzjeposjlu3WqpGeMJcb9wxfRbO6 rrcDV+7dqOcYJB0qAzujJTLqX2tQ8tC8exRKYukjS3 3vqWd3IsE42j2IlKr1ZFPoFO1l8li5LY9LFK5FS2z1hJaqhpmw6wYoz/Monisha+o51LQmUbjNfjf5WRS/DU [file] [facility] [place]+gRVa90fo0AAODe7lVV1COcijvCWHZtCmJC39iANN8VFZ5fs6W4Sjf/AFKePvRIiegY1CorCG2f [file] EVqAIeNgrzJHm6K2ROvl3vjAkIfsA0XkNV1cd8AQKbgo+VxoyQFenOpSOGcNB7lTnWIwaj/Procurement Buyer/8OxrWO [file] 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//lJBK+Bk4QOrapErPfU/IfGWzgXLvqrILuXXpaBTv6qbHvE7aZvfCYzbCB7CbYSQR1u5dDe3lqUjw [file] engraving plate maker/LDOBYQn6MhIo38s6H7/bBG7IG7DFKw4CxaOb9BVoLCuyO6jHR6Pt9kBKe0nNExUFcMmdcmQwhekQg cbIK9bvrTS/o3XHz1YidAO+s/LQz5lq7UJpQHDULs+bP0UhB1nfJM3hWeLVMYh4jODE9v3wAZdnLL4AM LcH0SnEfxdHY1A8IrYMwqgLxzmOrZPFzF+pKHlyEu8 DoYkjVMaj1pv1VsEKwhIe7bFB84fs2kTU5sjw7c/xej+Ezra/jNNYxvCNJekbW9w3mPqgjGWq3AR+BjI5 [file] RzchWBdXDpEQbSjzjy27fiJrEqdOcJhSlmz33w/Janet jN+EYxbykM8K7Bkt3PeA1RzRbVQcf/bJEC4uG6CaRzxA8vlr9lUq++qWS0HOxnwwHt48sNrwIYRnYOlx FTUZEZAMliss06oXHTp/WQaJ0gtAWyjXpoEEW81db4/3tKF1unlRvQz8iGe/oJvHKHHcnZymewjf4MmM eSlYCjZ3HFRuArv53CJRILk8MAGSU8+PhO0qHTY+uo ZNwoNpo43rdG6PE8E0KvCGvlwRJGb55snDtcG45Wa5BBncqR343jX1j0lZIF7kU5xjl8U06wAi4TFznd /b1yavTTVl5EVy/engraving plate maker/TCP5gcxlWwRvrNpRFKYEFX3yHjhc06s6Tsa3sHWo1rdcsCPIa8L/WilV9jrHBY [file] 1aMZKNc+tEzM9aBXWy2CUUibXuXRWdgKN80hOE2VLId6FWDzEhkrU27Ee9VMPAHPAzN+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+5D5xPERVo [file] continuity tester/PyrP7IeP1Kca2LBBe4q8K05f22BnW8fCXT6qD10zzTqbui9fSVKw/8PyHzJd5BGpNYQxhjLT6Jjq c5/+IsD1+fFfO9N3wyi7hJFwGiJPJwhPcH1V63yxCqs6hfbiwDRtKfylvyR2yCiDo7J7S2AXLqm6H25t Q+8wSVbFm36QQqG9f96SGRoFP6/TsrVtRkQftcB5GR d4ZLxdopQoFb2jCRxw6SQpF7XE+xqNl7/ktvKTUxDHbKrorBhXeAqtU+00LEfYiloSYWd7oPrr9bf93D CWI5CMzuuVvCsxqdvePvSu2VdFG0Mw8MXByvkgR32P6jFNJd4d+a0ARz9c41f83QHGFGe4ghq0/ZomfZ TMH2b03oZdFs7y1bm+Qhe4eJh9HB7GBlF3hAWk+3l3 xeRzL3tZsh6NSToq/mZMzlBYqy3WLmjFDPpgKI+UTWGykI7B0dKXMxr9w5eJCrEfomRGLSVAd4L3BSU1 2psYd1tg4l6CVjNYmE6c2qjlnnk3G5VJ8y982u+4pO5aRntflD+WXGTsEZ5BIBsAZs8kCJU4Jf2iRhWV dtKoYDH+/Y+qEDmi0s7H4RLiYTgabfo0IW31MgdF5T bSdovEEzk7acKteHdkdko/LDi0zHb3KMxqB19yjwWr58Wx8K3+i+qnenovmW4SwqPY938EHR9dNZE3qb Abf9Nz0Oq92AlckHcJwHRJt7Fg8+5jsTc7AlKUhv57VtYBVQFruI0et8E3/pflCWB8p/rhJC16Ytkvid iexzLmUVi2YswxlXyb2Snidz4ExdpjfnKwlJUG+oEO [file] gKgMt/sEvKJ8hbYxCuEIji5CTl46lqmmt3O0aiS8J3/bkKufikUp1Ly4JwnMG19NUw6CN1j45/Procurement Buyer+pb6 [file] uCVAs/AFl3LgzkzbohtyhmUMZw9Jbu3Gv/BTALyITC6Z61cRc08rfz/i029uOLFd8jxWuTB5PEG60/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 [file] gCFXXTlb6TbpeclQx7Ia1VGcHiGrvT7UHuKnB83Cf1pCHsuF/1/gmNWXLEyfaQNw4yKFCSz5Urd7+Pumping Supervisor H0OL4rXdMe9Hnl6+ql2Umhy373M3o1JQC82SQkwEqM tosjxq6G5MwUQNx0+LISA/KhcfOyIAxWXDpT8c3mzVNxQuIvvNmk++YjIuAw15oSEQix3g2fOSM5cbekp ReBClkMXwv9JrrZ1qjfJJx9LlVX7M1BqRQnzLtKOxeNKTHUkdnFAeR7B6lEUbNDQ4hmeHMvuAHZHtuk/ InA2hwTSp6cDISyZU/SG1td/MKzjZizkyZ7IcTP/8P V+F0uf1Ych1m1KpT9K9TSVikdn4ykecB6ub0WKydtymRGMm4CwP2HEm/ioYFyCReS95PDn3nmF3UuHaW 0GRq5WWZiC8l1Ecdy1XovbZDZXjogSg55vErH6aJn3aTYzQ7uwSGjtNQPLQr8QsYGpQbtsW8EcFzovpE judJK73CE+gQJnc2NWpZjhTYsNICU2CQz2kRjl+j5J Jd8VUY6aSD7k0o2ES+iQX39SA7Fn8A3y1KONoE+y0Gn68ixHJ24aCB5Aw9Jn85luCfEwVKLn3COEexWR rSAHLfsn7RnETy/l8GKT887rF9DEgwk7y14RMgEFyheatj9Boe0u/kBOa1rQL7p6L1sWLQkzI5eCW+JU eSNaUd/LSTLUwyMXHdAq2mg6fwo8NKcTDIo5tlKa9I OdKEcFi5GEiK5SIhAXHmlJUYtE/w9gEoOD7BUcCZhjj2fSm0RTTOCznJDoE3o3yFKvYVU2xRMrhp5zfW QhBjw1dXyP+oj98xbZRQXwq56Y7Hu2RzsE6pMmmvc9GWN2QaKB8Licbj6ov0vRH91uniAPWiqsqmjRCT VQKce2tk42jkS9OWvigtdwsgZlLb21lJZq2GUMYnjD LVS1cHSRu9WgFBsx6OkSb0cz3j1Ck5xufn8Uep+YeJu2+PRAbmW+Frazier+750rPhHMuLE9vL0XLyUePtPUq [file] gbo+PR4aOQin1jJPqG7jgfcIF4p25fKycnSzNg+transition program manager [file] 0GeWnU280VzRuhdjOIECMcX7dEVE39eDLM2H6+SALES PROCESS MANAGER+UOMCpuKm8L+PayMx+IzhiYDKS5+QlBGir7e5B7j [file] AHanBNWnjWkVf31CJf8Bi4b8l4UOmBQDS182t70fq6YwnXwblwk6iiuPX4dCxgnNPG2aO5fP5AVwW+rail transportation operator zyf08ucePobTdFPsp4f6wweY4uf4rRKUPGlj2nlzPN+a9QAlzJK7Zc7ShsS7Rw1aIaCy+/pXOkJnObOt GysnAFpBAtL0uMaeO0vxD7tRjHbgGPqw8YCWHf2kAK +K15Bez70XgLw8XsxQYmjp4NZAqVnbTE9HKBh6h0++qY023xqWxFh4Nih0mRgqu2xull7RhCN77GroWY I3s/xWW4SCjmmB6JT5wkzb2JBHPvkjX3EZjbqVioes8BuoaaLXzyEY2SB7at4vBfwqDkyDPUBYyd3SwJ vNsxOVdvRW3qV+3bhIiiT+DX48d+UIHX2dKrQ9GmCa 96U6Hf1NtxkrI6DBrwAKjeHtlcOzL0zQE7yXROC25a8IqYfwDX26hUrqILKf2keXMscQU0s5MTq/zTUX 1peScAUIAk07YcCSK89JJY21ZJ79It8cUAZLf5p0CXKJ9vgY1V6Ci/UFpiJZ+Alyson/80v6e2fBcXXkhdbd [file] vp of digital marketing/kBXsigJm4/ccG59AtzmmQXYmpsAU3CX/i7m2lm+xa5OSt8KlVzVsKJqDmqQWL5KlikNgJOYq0LVvY [file] continuity tester+Uz79oC1mFj5g5derGt0H2frGS3AIaNtx6a+0xS9fe+lsyvcUZCZUW+BtkKaK+9hhY/eu4OXSd0lJ hlfev1G6IFAgbWxnN2Kvr6X48xMaCjFhnL+sqW5Ar0lIWvgIiZid6pPV0E7vu6qXCc52ajeajZt+VIjM riM6tSV/I/1aU4gEKlpFB+1dsEIiiM7mxs9pygePch xLo6qp1MxR36r9eLUg2ISs6YntFYMymyrP2re8d33DHlEOQPvoEz79j7UpuoAbCXJRPDzKrnwnBn4hWF L01DTDcrSVlBPXuuYPsAKkZMg66Y3S1H/kjVguyRfeb3DADUMOb6WjtVQojEuuo/GltRv3+o4TPVRbff a6Oydukc9O/wftSiG9FTzKnejuzYtEWm4pzynRxu2K O57045ZDTYKgVhji0PAxC9jzpTbc6YbccMSGZQY64DprDdorrEYoBECqmcFhsPHGmmYcsmw5eU5asfGJ VxuTdVqWojc6NOwuP0dflmHoMv98BpSDe+g2xobSq/SFXlDhPpHlu2+SYxXkK0mEraj794Z+i/yIy9TM QPmogK2F7PXRqvn/MwPfkMRLuZiG6ke9LHe1RDWyl9 c9hy93ipKFRVUJzCI6AeBPISVrHeGF9kP+hPQkH/9LQSg9UhdfWhsCc/1jONBODq/UWeWYCxujsjFF4L P5XJSUkhx8vdjApHoGZn9ErlfcU0AWfGHemQ6LRnuLEAebtm6eYgfc04lKDrtM8Fg84MX1EW2jrdikVp S1IdVl3Vqym0QZ/y9xnq32zp9z6jt4xIIZwCKzOkNF SBPcu0+1FfzzyJxKWdLfdHNMjVRac2dPrFrdnv5QBRmP/lP0raLH1k1kJQBTwdNuqTs+PdFXb+0y+uY/ g9ftdcFXGYxIGCHm7PJ+58agh2mEqxqeojhFAMQTqipF9vqp1qq+CynwrkFq2Gf66A+Zdba4VMJM+vpW vBrYI9CzTbYF4g0H/lyLkGegu3Ygw5hsRfI+S6AUT4 Marc/ymxieDBq9+TqaR1y4AeZe+RF4hcQGnuLNxW7hwO4GYqvjbAiqLfU8LEadcKzyP2gDv+8Ut/S02mB [file] hHFu7TYXHbqO31gWhsG8+ByD//on2TnanNOiIvi44Xu1qeYGxi8sxeXbJfQqp0Lh7kkfTg1buvl/Y+ADVANCED PRACTICE NURSE PSYCHOTHERAPIST sWyM3EZTgN8IHPgbX1aVV4Jlv8awfkUUlKDNaocvV7vmiQ+7zYS6/EQY6U9qnauvZ289kMztBBWLlHcI LT/3c4dlSFnkDm4k+hfLhjfYc7nKUBmW+pGo2LgA5L txy/BAfoNJqfFi+9e2h25DjxR6xVkDbCrykfCTBeVul4C1ZghNblDDte9FfEml09vmmHf17QOM8g5dko GCiNPygbvs8GKV7hFemGddx9REKBm0zN/MrELwPlkGoL0kbjc3S4RSC5kb5PVYS+rVS2zVy4vYPAdHBO vTa7LGepfZJEoYQt0/UvO+EmhkRppjxyacQDQTA6mp eVc7vKIAz1Kl8lv0eHwbbIDqQVaYnkveiYWwsqVYT9cKMFrmMxg+PDu/mkr6l7T0NLpB4Ga81k8sUAQ1 +ZqSavWdhznE+7yPQbfBiHmRgCph+sQaKMzHDOn57N/isGsX4/LaVPBI5I9ZGNcMr2UNjolKio3c3TEx 5VfKyhesHaJ5+ebFGEfs0D/H5e9Ckx1QXzRFIb0Dhg N0WLMMtcDS3nGfuWuTHMyU+1eyFLUhKzW7tCeezFTsgpob6MynXnY4Exq/E7O6mEyUcUbc8jp82ufQr/ EtajjjBfZpTua7nLQzWN+dY6A0u1AGSLkI2bvyI+Y5qZXoEkNQBq4lhCjoL4I4TdQ9N/jXWsm6OrMPV1 Chiquis+ByKunGc7ktLUoouwQQh5g5rA67Rt3lVh7pztLc [file] pztbScBocTYMfrmNBzrKhhSMNXFxLeXTo3QciYLaTnPZ1Q ID Date Data Source [id number] 03/03/2019 10:00:00 AM EST [facility] Name Value Range Interpretation Code Description Data Amparo rce(s) Supporting Document(s) First [facility] VSSHAh0dOdIWQwEmAFFjMayOMRrgXGzyVPWtD7S6IYnrXw4LPJlqqsGsMKKvUy9+HUOoIF4qyk0hFPIv gMy [file] 0o36/Fl8m/pNbhX+8YUxyfEWwN1UZJ7XeXHpM2Nmq3WyL4RkTqac/1u46W+fz2dZauhdXOTyJEjF/Jonathon DAJ9Zihjt1dG8UA2c1TlBZxedVueniQId7H8FBwUUA bk3TrrIyx86hmV+ueReDonParDt8rBi6+snUqH/MOC7FA/Z6BGc1QFP67rXZv5VqwBfE7/GrjE3RFsR2 N8TgiYWMLEdPIkCmMZ3CPIBdHZbHkfzkkNvxvSBejg+8svNhLwLRQr6Vv1kB492CSr1eUtrxAKh9jbQb huJ72TR4OeWWTMlNIw7V2JYL8uKP+73AuXBX5RUWUt wMK+bucMwAt3wMNiKe+i3ETlbOVYocnY/AiF6OI29cBrCGL7WI6iKnZEqBoLQrcCPvEgWJ50DzQXizeV n4KkwsI59BESoTpWSseOmz7rephJzUF/O2MPkpqyzKbm8/dZKqIPZfef4NDnq5y7n5q7sDEM/1Aie87z 2wTOmJhNlaQ6Un4hHm2ZCFtyB0BWLbXM1XGK5caF3F rail transportation operator+Y1vh83+GIwYZoNckoSZXJxvPqee4Cv2GrHfz1+6taTWDxx5D/hrVMLIO1kpyzx9q/jvTeTlnvWT+F [file] V8D3y1DPSWMdop+Kqn2t0e88mCgpbLxSpYXocY7dRLUuBxLVPKB80/uKQBrSmggFd57/independent video producer+Ezo/1Jzy [file] vOEhG9ON1T+MacseRh/Aisha/+9Ch+I40lV5tdu/oU/+9DIGnJR2QmiNJUeOGwR/mJX/JwYPKq1lYpGQbr rU9wnclY8JeTxk5/P8U+pQXNIBu1JObmZ8gfD5XzhGRaiw7sXre9H5QJQi83pY3Q0P0n7vDyzOu+Gauri 5yjCvWmXA826xkv/LuxRe/lfP/zO4oW9H+5F6nLTl2 Q1UnwXJuvJTw9/3hqkq9oZstqqUKVCZ/eBu2JiOiUQz1og1b6eyFkINpw6ZvAEn7OZo4l+XraMkPT1sN 9LcN+Hw629v2ypNw78gYb7qwGpn5j0aDXf18uXv7mA5ArcQ3jZTufgJSD8+3aJdb2XoDGICSiaCgN+ZV X7Fob6Kis5D9HE/hyBqAEhy8O2PV8A9iP/uaOw9BDe yurpUVp+0sdsyS/2QkufJhcJ6edYKIsils+jbpny2PFjcuRIk25EgS2Z/okvHzs8/ksNXrJtV3Oe1STE y/z/dvMueN/YX0I7Q0cAB7xfrqgn1WYK09hE2EW2KNQx3vCcWGf7JHCe0siKSqb2Cc2R+IaOUyNe7w+0 uP9c48FKOpmGsoKHo73PGyxLisMEW/stAbuZL9MDri kfn4XUCgYzXFP8W8L5b2ewvlBhAeuW4SS9VrDIaO6KbpO5X7clSa4YdsxYpEdfMDY/FRa+s/DqyN2owJ 4G9ba4wijxCllmFx92CtMms3q5E/60JgADw3G4DgrZfjLALJy1x7XWSs4N633FEEfoiO+9daerMM6TIH yqWdaSFH2P3flt7nbr3AdvQ0Hxp0+VNgmNRM7wWMew mrbHWorGqu0+9vE3uLGQxmjT5bQJqvYOfY1kZJfILLnlqbxoVVvKvt81EnPxVXI0rQIRa7nRWMZGllgA UfmF1lx6+Tuk5JhqMW5SEyGwoH+zy8XfHs2I/T1l17xLJj17YwI04acoNTTsdnLXZYSZcAyVDdhLV7/0 fqLI18XtCLixCoY6iP2jm6RvWkWMYSFMNVLVEBOh9M raZhTDhzjoWZVbbSKj9NkcN4hUO/LpEdP0brMu29zpXJautVqvXFVJW79l1jyxh2HK6u9LZK9byNartA gZQseXPPnlbRLjQWECcKqcbTMv/sYSIvcYfc8fqsCn0EfbyoVVCX8UNX6WzmwZV+JntEMw9QS4zrD+Soloist Dancer [file] YaLzmo8PgU7gSIjM8GMWVgkf3zpvUg2ThgVLvP/ga/hSZ3JrMGcs4H9Ll6MuXdb/JE0BlgJm5cAs/computer education professor [file] +M932k+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+q+zEK8/Tplh8njAZbJUiG4smgqPG640FDJL2p5LzbzfObJm8lShD+kjmG5HpLGBG0M1rNL [file] bw2EAQpgjEEW8pEtyE53G0583r3bHg0aKFV8hnh94q2VbAtahFeIJBKhy2kcmKTMtCTnZYjL3M/[facility] [file] oY7oW+ZXIyx+vp of digital marketing/CUvH5km5dNbFHsT1YhBuR3pFhUh5jB3y2bIzJsVedMZfxJaL8N7hxomDWBNwWfdGU [file] engraver automatic+VtIvvEM8NYXBVC1keIq8a/2Fh1lfwyNQEZLW0PVW551MQtOUIr/u2yjdeGsstac+zfgJkJOjNet S0iBgfmBduA7flA7qUe3UERPnl1aIxFjoTupHb1pLf tNbaZLF0GwQtMs8syn6YghN/Nub2DXr9L+63TVR+aLh3qNNIvjstL7goASyw+8iCI09GnYBiNPJVp8Oq Fn0z8MbP125Ep52vvHWkQOp7w0RQ06rnlDq4OE00nE9cub7gOK6DB5OMas1Ciovp4WmmAz1dgmUgIM/W /vhdV3ez5WGsEDkX2Wr50zhheV3s0ZTPq2wn2IOPGS QbJjSARu2b+RpDeRxqGoiPSymCFKnXglX/7XDqswHp/pu6uEbVFL6Mdy7tgKlicfrSpxPguD1/5194Va qbOThAU5qZFmtQ983jXTgZljdSmZOedPzHk9AObeG0whLYoCGfWfb8oj1V0aLVWM58Nq+8g7nnbMg+Tb 27YtlDi1JwKDhMibjA5SuHd2Oar17VrxhMF97aKpP/ gks1eh4zgy11mBekCrVs9eP6zycoqfWq+GNsK0KsZpS4g6g0JJXv5muhLbaAu46kBBrIo2Ro+3iGc6N2 k6+xeI/3QPG5Aix75Hq+j+eqM9b2IGz3txRr8uvwIkPN7aU4FJsnaTGs49kFswvxafOjAvwxmaRuexOi 36zS9ZPL30A3ou8xqYcpk9etz6KlwP+5NvEu8XWyzc KmUVvr/Cud0qbj+f3wcWHbHQV9n8aS+2C+TpcKrnYqR8nbe/MhyVmSI6LggvYKtq5KhPmWHn2zzRAhJv vC9fikvtyqiDyIgFUzwFSS+eLbtxpuJtWFf4yPtc3tgTrbgx3igT0GLKCmr0J3y11RAcjEoPFxtn4LcM iayhzTzutj6QtJm4pODJLuT/sSgfZMkkhnjkiwnvgn [file] ramirez/dPYl9KUGvZSjzSVGGB3Gm1yzWHrMuS7EEFq3JrZ 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+uqV8iRensl5enTeFDefu1SelS9iS3kbM/ublsn6GyGHkbwhNGyem1pt4xaCY+yOLj6A1nBVOVeAeb [file] ddCHfmx56uj+e9AtbYVxS87l+7qL+Nmt+t0w2paAh/bnVrczdvnsf+Superintendent Plant Protection+4mF2JyZOcDOA2qxzQubGbG [file] RlUljuJreuflhixSGRvmfFqccnjB13fA8Xyyfraexbpzks1rC11IVcP+tvzw743Itw0stfvoS6ImKJvm Una3hH9w/OsFr2iAb+La0MIIgEEX4EF6r6j7m4eLNC2h2qtbQT9h15WncbLFfxVbh+iQmY9OEQxNbGXk lAFbe7rm5jp7KvnUQoYTdmr4zGWVrQL5m7pN7Df47/ WMRrcHbXVRIYWHiwYuU7GDrzj7iNYD2Z07oFaTeKPPtvQK4wU6j/GlGV92peX0VDFakenj+4+Tk+6OjJ 4V9JpOiWGy+rLDH+AeYfG7bf29gHhSHFWnAbJFrjjv7HGDMJj63g4IV3UsdrBr0PlLpFU7/Q5yOcLdLQ BOadrXEeKpTRZyia4AKt+Sld Inclusion Teacher+xMRl8hwH4DUVIwxiK sl78xIS2PtOI85J4T8U8a42qlwtMWL4/jzDNF6qurHH+OcPtNEpkaLkhlDXLDuKtoy3uPB6EGfCd2iN2 Chalino+/1UW0vQLAir47frvompyTzywz23S88kWQGwYpCipx/nEXLCsDrUhEYFEPx9WghsYIZ91TTtqtaQc tfM1feGL8RKoUtDgOnKt0t3GGZAfN8LJ5ubw7DyVD9 2TWtBNpNUMp1w1LOV3Y1XZVOaVbwy8UQZ5b+ESRklQyEwYGTtwDXaNxPcg73JZe+u3JsKf3ndHhS3xGz 456u5B3Hi20wPPhhpOSaP8Gqh0yd/HoQHkSBOS1NcCmO6N267JogxVYj4WdCXU23zo5vd0qm6VgZu9Gh S+KgxZg1LA3vHp8GBE5kkCjRFKKg3VqcYztryYKOBo 9SzuBtWo1gD9auokRj8ZWlBNpDkMcH0oMnZie7ruHyR9P5z1xJBSboqUfiw4ffjTPHCiMZhuuV0aiET9 5azolCYCA3Z6fKp8IDDj0DjsvKC8bHmcYWeMer64m41tQGVc2wUxbpL6C1O1DTgLkqb/OkiKEd+8Q7wW ae0viE0OwkCRvUrAY2G4oksvbu8sf9IiXszUx2Rl/5 qekyYf+6V7CCGa59n1J7XC3aP2qR09qor1j2Xt1iFVU0vPdId9IJ3/je0Q/0U9bGxFf3fdt7o/CH06yG Cx09B+aO0XyCoCKsO/LQZO85DFo8TBuYqpBLG58zU16YeeFVa2tfNzZhVGyRbLb/M1qjfUMkYH9JS8a2 FScQVxxf+b4Z9HpoJP256dJpgjcGnmi0NP707Ek4sF 6o7eTtykSWJBeoVjUvdBDmTZESQxrcM8cqIOE8cs8pTXUheridTZqlGFxJqcDbbNo0czbBhc5625nbdJ LANGLEY/YKZfJ+WTL8UDd4kTscH8kGkV1iX0nxr4aDb6tmX/SfDfzfC+/AEEIHSxJEnJCHt/JtMZ4ivYWdQgf [file] z/Gallardo+89ujD+zUTK+5q3PqCCSQ41bI+6cuYzmXvxD6p3MH+b6K/EMUg0/aYiFt2aLz2TwCjaujH6xg3s6 vQUgVeVKXI1IpynM+5Z6NlV/nmzgvQ01wrf0Fj4Fxu hBY+p7mr9Q6Ku6XnudRibbZcioUE7ddL2fRnIdOz/p0+xrGg9MaH2TiLzQH2tElTmbnRPXd38iK+/Aníbal [file] CxHvRIZ2qcYrsF6FAO0qb0QpNS1Lj9JzhvH6xqHnYNw7Dyh8YWUEUmXaFZ4L ID Date Data Source [id number] 03/03/2019 09:41:23 AM [facility]FORMATION[facility] MR[facility] Name Date of Age Gend*PT [id number] Vivian Bennett 1970 48 years F ---PT Location Admission Date/Time Visit ID Attending Provider --- --- --- --- EPI ID CSN Admitting Provider [id number] ---02/26/19 Vivian Bennett [id number] female 48 yearsGail Shauna Bennett is referred [...] file Gets together: Not on file Attends adventist service: Not on file Active member of [...] EST Former Smoker completed Former Smoker eCW1 ([facility]) Smoking 03/01/2020 12:00:00 AM EST Former Smoker completed Former Smoker eCW1 ([facility]) Smoking 01/29/2020 12:00:00 AM EST Former Smoker completed Former Smoker eCW1 ([facility]) Smoking 01/29/2020 12:00:00 AM EST Former Smoker completed Former Smoker eCW1 ([facility]) Smoking 11/17/2019 12:00:00 AM EDT Patient is a former smoker completed Patient is a former smoker MEDENT ([facility], ) Smoking 07/02/2019 12:00:00 AM EDT Former Smoker completed Former Smoker eCW1 ([facility]) Smoking 07/02/2019 12:00:00 AM EDT Former Smoker completed Former Smoker eCW1 ([facility]) Smoking 07/02/2019 12:00:00 AM EDT Former Smoker completed Former Smoker eCW1 ([facility]) Smoking 07/02/2019 12:00:00 AM EDT Former Smoker completed Former Smoker eCW1 ([facility]) Alcohol intake 04/08/2019 12:00:00 AM EST Yes completed [facility] Cigarette pack-years 04/08/2019 12:00:00 AM EST UNK completed [facility] Cigarettes smoked current (pack per day) - Reported 04/08/19 12:00:00 AM EST UNK completed [facility] Smoking 04/08/2019 12:00:00 AM EST Former smoker completed Former smoker [facility] Alcohol intake 03/31/2019 12:00:00 AM EST Yes completed [facility] Cigarette pack-years 03/31/2019 12:00:00 AM EST UNK completed [facility] Cigarettes smoked current (pack per day) - Reported 03/31/19 12:00:00 AM EST UNK completed [facility] Smoking 03/31/2019 12:00:00 AM EST Former smoker completed Former smoker [facility] Vital Signs ID Date Data Source UNK Name Value Range Interpretation Code Description Data Source(s) Diastolic blood pressure 48 mm[Hg] 48 mm[Hg] eCW1 ([facility]) Systolic blood pressure 88 mm[Hg] 88 mm[Hg] e CW1 ([facility]) Body temperature 98.7 [degF] 98.7 [degF] eCW1 ( [facility]) Respiratory rate 18 /min 18 /min eCW1 ([facility]) Heart rate 60 /min 60 /min eCW1 ([facility]) Body mass index (BMI) [Ratio] 23.82 kg/m2 23.82 kg/m2 eCW1 ([facility]) Body height 60 [in_i] 60 [in_i] eCW1 ([facility]) Body weight 122 [lb_av] 122 [lb_av] eCW1 ([facility]) Diastolic blood pressure 82 mm[Hg] 82 mm[Hg] eCW1 ([facility]) Systolic blood pressure 148 mm[Hg] 148 mm[Hg] e CW1 ([facility]) Body temperature 98.1 [degF] 98.1 [degF] eCW1 ( [facility]) Respiratory rate 18 /min 18 /min eCW1 ([facility]) Heart rate 80 /min 80 /min eCW1 ([facility]) Body mass index (BMI) [Ratio] 25.66 kg/m2 25.66 kg/m2 eCW1 ([facility]) Body height 60 [in_i] 60 [in_i] eCW1 ([facility]) Body weight 131.4 [lb_av] 131.4 [lb_av] eCW1 ([facility]) Body weight 62.654 kg 62.654 kg MEDENT ([facility], ) [place] body weight 105 [lb_av] 105 [lb_av] MEDEN T ([facility], ) Body mass index (BMI) [Ratio] 26.1 kg/m2 26.1 k g/m2 MEDENT ([facility], ) Body weight 138.12 [lb_av] 138.12 [lb_av] MEDEN T ([facility], ) Body height 61 [in_i] 61 [in_i] MEDENT ([facility], ) 5'1" Diastolic blood pressure 66 mm[Hg] 66 mm[Hg] MEDENT ([facility]) Systolic blood pressure 122 mm[Hg] 122 mm[Hg] [facility] ([facility]) Body weight 61.463 kg 61.463 kg [facility] ([facility]) [place] body weight 105 [lb_av] 105 [lb_av] MEDEN T ([facility]) Body mass index (BMI) [Ratio] 25.6 kg/m2 25.6 k g/m2 [facility] ([facility]) Body weight 135.50 [lb_av] 135.50 [lb_av] MEDEN T ([facility]) Body height 61 [in_i] 61 [in_i] [facility] ([facility]) 5'1" Diastolic blood pressure 62 mm[Hg] 62 mm[Hg] [facility] ([facility]) Systolic blood pressure 126 mm[Hg] 126 mm[Hg] [facility] ([facility]) Body weight 61.916 kg 61.916 kg [facility] ([facility]) Body mass index (BMI) [Ratio] 25.8 kg/m2 25.8 k g/m2 [facility] ([facility]) Body weight 136.50 [lb_av] 136.50 [lb_av] MEDEN T ([facility]) Body height 61 [in_i] 61 [in_i] [facility] ([facility]) 5'1" Diastolic blood pressure 80 mm[Hg] 80 mm[Hg] [facility] ([facility]) left 86/62 Systolic blood pressure 130 mm[Hg] 130 mm[Hg] [facility] ([facility]) left 86/62 Body height 61 [in_i] 61 [in_i] [facility] ([facility]) 5'1" Diastolic blood pressure 81 mm[Hg] 81 mm[Hg] [facility] ([facility]) Systolic blood pressure 150 mm[Hg] 150 mm[Hg] [facility] ([facility]) Body weight 64.865 kg 64.865 kg [facility] ([facility]) Body mass index (BMI) [Ratio] 27.0 kg/m2 27.0 k g/m2 MEDENT ([facility], ) Body weight 143.00 [lb_av] 143.00 [lb_av] MEDEN T ([facility], ) Diastolic blood pressure 82 mm[Hg] 82 mm[Hg] eCW1 ([facility]) Systolic blood pressure 126 mm[Hg] 126 mm[Hg] e CW1 ([facility]) Body temperature 96.7 [degF] 96.7 [degF] eCW1 ( [facility]) Respiratory rate 18 /min 18 /min eCW1 ([facility]) Heart rate 91 /min 91 /min eCW1 ([facility]) Body mass index (BMI) [Ratio] 29.45 kg/m2 29.45 kg/m2 W1 ([facility]) Body height 60 [in_us] 60 [in_us] eCW1 ([facility]) Body weight Measured 150.8 [lb_av] 150.8 [lb_av ] eCW1 ([facility]) Oxygen saturation in Arterial blood by Pulse oximetry 95 % 95 % [facility] Respiratory rate 18 /min 18 /min [facility] Body temperature 36.67 Geeta 36.67 Geeta [facility] Heart rate 72 /min 72 /min [facility] Diastolic blood pressure 74 mm[Hg] 74 mm[Hg] [facility] Systolic blood pressure 116 mm[Hg] 116 mm[Hg] [facility] Body mass index (BMI) [Ratio] 27.44 kg/m2 27.44 kg/m2 [facility] Body weight 68.04 kg 68.04 kg [facility] Body height 157.5 cm 157.5 cm [facility] Diastolic blood pressure 76 mm[Hg] 76 mm[Hg] eCW1 ([facility]) Systolic blood pressure 124 mm[Hg] 124 mm[Hg] e CW1 ([facility]) Body temperature 98.4 [degF] 98.4 [degF] eCW1 ( [facility]) Respiratory rate 18 /min 18 /min eCW1 ([facility]) Heart rate 82 /min 82 /min eCW1 ([facility]) Body mass index (BMI) [Ratio] 30.35 kg/m2 30.35 kg/m2 eCW1 ([facility]) Body height 60 [in_us] 60 [in_us] eCW1 ([facility]) Body weight Measured 155.4 [lb_av] 155.4 [lb_av ] eCW1 ([facility]) Oxygen saturation in Arterial blood by Pulse oximetry 94 % 94 % [facility] Body mass index (BMI) [Ratio] 28.88 kg/m2 28.88 kg/m2 [facility] Body weight 71.623 kg 71.623 kg [facility] Body height 157.5 cm 157.5 cm [facility] Heart rate 80 /min 80 /min [facility] Diastolic blood pressure 72 mm[Hg] 72 mm[Hg] [facility] Systolic blood pressure 124 mm[Hg] 124 mm[Hg] [facility] Diastolic blood pressure 70 mm[Hg] 70 mm[Hg] eCW1 ([facility]) Systolic blood pressure 130 mm[Hg] 130 mm[Hg] e CW1 ([facility]) Body temperature 97.7 [degF] 97.7 [degF] eCW1 ( [facility]) Respiratory rate 18 /min 18 /min eCW1 ([facility]) Heart rate 83 /min 83 /min eCW1 ([facility]) Body mass index (BMI) [Ratio] 30.66 kg/m2 30.66 kg/m2 W1 ([facility]) Body height 60 [in_us] 60 [in_us] eCW1 ([facility]) Body weight Measured 157 [lb_av] 157 [lb_av] eC W1 ([facility]) Body weight 71.669 kg 71.669 kg [facility] ([facility]) Body mass index (BMI) [Ratio] 29.9 kg/m2 29.9 k g/m2 [facility] ([facility]) Body weight 158.00 [lb_av] 158.00 [lb_av] [facility] Body height 61 [in_i] 61 [in_i] [facility] ([facility]) 5'1" Diastolic blood pressure 78 mm[Hg] 78 mm[Hg] [facility] ([facility]) Systolic blood pressure 90 mm[Hg] 90 mm[Hg] [facility] ([facility]) Body weight 73.030 kg 73.030 kg [facility] ([facility]) Body mass index (BMI) [Ratio] 30.4 kg/m2 30.4 k g/m2 [facility] ([facility]) Body weight 161.00 [lb_av] 161.00 [lb_av] [facility] ([facility] Body height 61 [in_i] 61 [in_i] [facility] ([facility]) 5'1" Diastolic blood pressure 82 mm[Hg] 82 mm[Hg] [facility] ([facility]) Systolic blood pressure 124 mm[Hg] 124 mm[Hg] [facility] ([facility]) Patient Treatment Plan of Care Planned Activity Planned Date Details Description Data Source (s) Albuterol Sulfate HFA 108 (90 Base) MCG/ACT 01/14/2020 12:00:00 AM EST eCW1 ([facility]) Albuterol Sulfate HFA 108 (90 Base) MCG/ACT 01/14/2020 12:00:00 AM EST eCW1 ([facility]) BuPROPion HCl ER (Smoking Det) 150 MG 06/15/2019 12:00:00 AM EDT eCW1 ([facility]) Acetaminophen 325 MG / Oxycodone Hydrochloride 5 MG Or al Tablet 04/10/2019 12:00:00 AM EST [facility] pantoprazole 40 MG Delayed Release Oral Tablet 04/02/2019 12:00:00 AM EST eCW1 ([facility]) Drisdol 1.25 MG (60962 UT) 03/09/2019 12:00:00 AM EST eCW1 ([facility]) Simvastatin 40 MG Oral Tablet 02/13/2019 12:00:00 AM EST [facility] clopidogrel 75 MG Oral Tablet 02/13/2019 12:00:00 AM EST [facility] Aspirin 81 MG Delayed Release Oral Tablet 02/13/2019 12:00:00 AM ES T [facility]
--- NOTE | 2020-03-09 18:15 | HPEPDOC ---
[facility] Medical History & Physical Date of Admission Mar 09, 2020 Date of Service: Mar 09, 2020 History and Physical Chief complaint: Who presented to ER with lower extremity swelling History of present illness: Patient is a 49-year-old female who presented to the emergency room with lower shortly swelling. Patient reports that she was scheduled to receive a CT scan of her abdomen and pelvis today at the direction of her primary care provider. Patient noted that on 02/21 she was expressing severe abdominal pain, reported as a 10/10, occurring in the lower portions of her abdomen. Should called her primary care provider who had scheduled her an appointment to be seen on 03/01. Patient had an x-ray completed on the date that was negative. Patient continued to experience pain and was scheduled for an outpatient CT scan of her abdomen and pelvis on 03/09. Upon arrival to [facility] patient noted that she is experiencing lower extremity swelling that prompted her to come to the ER for further evaluation. Patient reports that she is experiencing some abdominal pain in the lower portions of the abdomen reported as a 7/10, aching/throbbing/pressure-like, alleviated with medications received in the emergency room and aggravated by nothing. Patient denies any nausea, vomiting, diarrhea or constipation. Denies any urinary discomfort. Reports her last bowel movement was this morning reported as normal without any significant bleeding. Patient reports that while at home, she had measured a fever of 100.7F 3 days ago has reported some chills. Patient also reports a weight loss of approximately 13 pounds over 2 weeks and a poor appetite. Patient denies any chest pain, shortness breath, palpitations or cough. Past Medical History: PVD DLP Asthma Vitamin B12 deficiency Depression GERD Past Surgical History: Bilateral LE PVD with bypass grafts to legs Aortic endarterectomy, right common iliac artery endarterectomy, left common iliac artery endarterectomy, aortobiiliac bypass graft with a 14 x 7 x 7 graft, lysis of adhesions of the omentum to the anterior abdominal wall, omentum to small bowel and small bowel to the anterior abdominal wall. Hernia repair (03/2017) Colonoscopy (Found polyps 02/2019) EGD with dilation (02/2019) Allergies: See below Medications: See below Family History: - Mother at 51 with atherosclerosis Social History: - Patient reports that she quit smoking cigarettes in 2018 - Reports that she smokes marijuana 2-3 times a day - Used to drink 3-4 beers a day but hasnt over the last several weeks - Denies recent travel or sick contacts - Lives with - Occupation Review of Systems: 10 point review of systems complete, all negative otherwise stated in HPI Physical exam: - Vitals: BP [106/50], HR [80], RR [16], Sat [95%RA], Temp [99.7F] - General: Lying in bed, Speaking in full sentences, AAOx3 - HEENT: NC, AT, PERRLA - CVS: RRR, +S1S2 - Lungs: Fair air entry bilaterally, No appreciable wheezing / rales / rhonchi - Abdomen: Soft, Non-distended, tenderness, at lower quadrants bilaterally - Extremities: 1+ pitting edema bilaterally, No calf tenderness - Neuro: No focal motor or sensory deficit - Skin: No visible rashes Labs: See below Imaging: Duplex US 03/09: There is no ultrasonographic evidence of deep venous thrombosis involving any of the visualized deep venous structures of the bilateral thigh, as described above. CXR 03/09: No acute pulmonary disease. CTA Chest 03/09: No PE CT Abdomen / Pelvis 03/09: Large pelvic abscess extending inferiorly from the region of the cecum, extending into the inferior right and left pelvis. A normal appendix is not visualized. I suspect the abscess is due to a ruptured appendicitis with abscess formation. Lower right colon and cecum are diffusely thickened, as is the sigmoid colon, likely inflammatory.. There are multiple sigmoid diverticula present. CT-guided drainage could be performed using a left gluteal approach. EKG: See below Assessment and Plan: Pelvis abscess - possibly 2/2 ruptured appendicitis - Patient reported that she was expressing abdominal pain on 02/21 that has improved but lingered since then - Patient has had outpatient imaging with her primary care provider via abdominal x-ray on 03/01 that was negative - Patient is hemodynamically stable and afebrile - Mild leukocytosis with neutrophil predominance / no lactic acidosis - Imaging noted above - Case discussed with general surgery; will order IR guided drainage of pelvic abscess. No surgical intervention required at this time - ER providers have discussed with radiology; will be able to perform IR guided drainage in AM - Clear liquid diet for now - Will start Zosyn and symptomatic control with Zofran / Morphine LE swelling - Patient does appear to have lower shortly swelling but no evidence of crackles - BNP noted - CTA of her chest did not reveal any significant vascular congestion - Patient was given a dose of Lasix 20mg IV in the ER - Will hold off on further diuresis - Strict ins/outs - Will check ECHO PVD - Extensive surgery [place] [address] Hoskins - c/w ASA and Plavix DLP - c/w Simvastatin Asthma - c/w Albuterol PRN Vitamin B12 deficiency - c/w Depression - c/w Sertraline GERD - c/w Protonix DVT prophylaxis - Will give single dose of Lovenox 40 today; will resume after IR guided drainage Vital Signs Vital Signs Date Time Temp Pulse Resp B/P (MAP) Pulse Ox O2 Delivery O2 Flow Rate FiO2 03/09/20 16:41 99.7 80 16 106/50 (68) 95 Room Air Laboratory Data Labs 24H Laboratory Tests 2 03/09/20 14:07: Immature Granulocyte % (Auto) 0.4, Neutrophils (%) (Auto) 84.9H, Lymphocytes (%) (Auto) 9.0L, Monocytes (%) (Auto) 5.3H, Eosinophils (%) (Auto) 0.1, Basophils (%) (Auto) 0.3, Neutrophils # (Auto) 10.5H, Lymphocytes # (Auto) 1.1L, Monocytes # (Auto) 0.7, Eosinophils # (Auto) 0.0, Basophils # (Auto) 0.0, Nucleated Red Blood Cells % (auto) 0.0, Prothrombin Time 13.2, Prothromb Time International Ratio 0.98, Activated Partial Thromboplast Time 36.2, Urine Color YELLOW, Urine Appearance CLEAR, Urine pH 5.0, Urine Specific [place] 1.016, Urine Protein NEGATIVE, Urine Glucose (UA) NEGATIVE, Urine Ketones NEGATIVE, Urine Blood NEGATIVE, Urine Nitrite NEGATIVE, Urine Bilirubin NEGATIVE, Urine Urobilinogen 0.2, Urine Leukocyte Esterase NEGATIVE, Urine WBC (Auto) 3, Urine RBC (Auto) 0, Urine Hyaline Casts (Auto) 0, Urine Bacteria (Auto) NEGATIVE, Urine Squamous Epithelial Cells 0, Urine Mucus (Auto) SMALL, Urine Sperm (Auto) , Anion Gap 5L, Glomerular Filtration Rate > 60.0, Lactic Acid Level 0.9, Calcium Level 8.7, Total Bilirubin 0.3, Direct Bilirubin 0.1, Aspartate Amino Transf (AST/SGOT) 8, Alanine Aminotransferase (ALT/SGPT) 12, Alkaline Phosphatase 104, Total Creatine Kinase 27, Creatine Kinase MB < 1.0, Creatine Kinase MB Relative Index 3.70, Troponin I < 0.02, SD-Wkx-T-Type Natriuretic Peptide 1815H, Total Protein 6.3L, Albumin 2.0L, Albumin/Globulin Ratio 0.5L, Amylase Level 46, Lipase 103 03/09/20 16:48: Coronavirus (COVID-19)(PCR) NEGATIVE, Influenza Type A (RT-PCR) NEGATIVE, Influenza Type B (RT-PCR) NEGATIVE, Respiratory Syncytial Virus (PCR) NEGATIVE CBC/BMP Laboratory Tests 03/09/20 14:07 Home Medications Scheduled Aspirin (Aspirin EC) 81 Mg Tab, 81 MG PO DAILY Clopidogrel Bisulfate (Plavix) 75 Mg Tab, 75 MG PO DAILY Cyanocobalamin (Vitamin B-12) (Vitamin B-12) 500 Mcg Tablet, 1,000 MCG PO DAILY Docusate Sodium (Colace) 100 Mg Capsule, 100 MG PO DAILY Pantoprazole Sodium (Protonix) 40 Mg Tablet.dr, 40 MG PO DAILY Sertraline HCl (Sertraline HCl) 100 Mg Tablet, 100 MG PO DAILY Simvastatin (Simvastatin) 40 Mg Tablet, 40 MG PO DAILY Scheduled PRN Acetaminophen (Acetaminophen) 500 Mg Tablet, 1,000 MG PO Q6H PRN for PAIN Albuterol Sulfate (Proair Hfa) 8.5 Gm Hfa.aer.ad, 2 PUFF INH QID PRN for SOB/WHEEZING Epinephrine (Epipen 2-Wu) 0.3 Mg/0.3 Ml Auto.injct, 0.3 MG IM ONCE PRN for ALLERGIC REACTION Allergies Coded Allergies: No Known Allergies (Unverified , 06/26/17) BALBINA AHMADI MD Mar 09, 2020 18:15
[2020-03-09] MEDS: MORPHINE 4 MG/ML 1ML VIAL/SYRINGE (J2270) IV PRN (19:32)
--- NOTE | 2020-03-09 20:03 | REP ---
INDICATION: palpitations, l/e edema, abd pain, wt loss. COMPARISON: None. TECHNIQUE: CT angiogram chest performed following the intravenous administration of 100 cc of Isovue 370. Sagittal and coronal reconstruction images are performed. FINDINGS: Lungs: No acute infiltrate is seen. There appears to be mild fibro atelectatic change inferiorly in the posterior lung bases. A 3 mm nodular density in the left lower lobe on image 63 is of doubtful significance. Mediastinum: No adenopathy. Pulmonary arteries: No evidence of pulmonary embolism. Laura: No adenopathy. Axilla: No adenopathy. Pleura: There is a tiny left pleural effusion. Heart: Not enlarged. There is relatively mild pericardial effusion. Thoracic aorta: No aneurysm or dissection. Upper abdominal structures: Unremarkable. Visualized osseous structures: There are few old bilateral rib fractures. There are degenerative changes of the spine without compression deformity. IMPRESSION: No CT evidence of pulmonary embolism.No infiltrate seen. Tiny left pleural effusion. Mild pericardial effusion. <Electronically signed by Leif Coleman > 03/09/201958
[2020-03-09] MEDS ORDERED: NS 1,000 ML IV ONE (20:45)
[2020-03-09] MEDS: ACETAMINOPHEN TAB 650MG DOSE (2X325MG) PO PRN (21:55)
[2020-03-09] MEDS ORDERED: KETOROLAC 30 MG/ML 1ML VIAL IV ONE (22:15)
[2020-03-09 22:30] VITALS: BP 90/58
[2020-03-09] MEDS: PIPERACILLIN/TAZOBACTAM SOD 3.375 GM in D5W MINI-BAG PLUS 50 ML IV SCH (23:59)
--- NOTE | 2020-03-10 00:43 | ECGEPIP ---
[facility] - ED Test Date: 2020-03-09 Pat Name: VIVIAN BENNETT Department: Room: - Gender: Female Director Diabetes: jamee : 1970 Requested By: QUINN Dueñas PA-C Order Number: [id number] Reading MD: Onur Cadet Measurements Intervals [place] Rate: 91 P: 62 PA: 104 QRS: 56 QRSD: 91 T: 48 QT: 351 QTc: 432 Interpretive Statements SINUS RHYTHM WITH SHORT PA INTERVAL INCOMPLETE RIGHT BUNDLE BRANCH BLOCK SIMILAR TO 07/11/17 Electronically Signed on 03-10-2020 0:42:42 EST by Onur Cadet
[2020-03-10] MEDS: MORPHINE 4 MG/ML 1ML VIAL/SYRINGE (J2270) IV PRN ×3 (01:07→10:19)
[2020-03-10] MEDS: PIPERACILLIN/TAZOBACTAM SOD 3.375 GM in D5W MINI-BAG PLUS 50 ML IV SCH ×3 (05:48→18:34)
[2020-03-10 06:00] VITALS: BP 99/56
[2020-03-10 06:08] LABS: BASO # 0.1 10^3/uL (0.0-0.2); BASO % 0.5 % (0.0-1.0); EOS # 0.1 10^3/uL (0.0-0.5); EOS % 0.5 % (0.0-3.0); HEMATOCRIT 30.4 % (36.0-47.0); HEMOGLOBIN 9.5 g/dl (12.0-15.5); LYMPH # 1.2 10^3/uL (1.5-5.0); LYMPH % 10.3 % (24.0-44.0); MEAN CORPUSCULAR HGB CONC 31.3 g/dl (32.0-36.5); MEAN CORPUSCULAR VOLUME 99.3 fl (80.0-96.0); MONO # 0.9 10^3/uL (0.0-0.8); MONO % 8.1 % (0.0-5.0); PLATELET COUNT, AUTOMATED 588 10^3/uL (150-450); RED BLOOD COUNT 3.06 10^6/uL (4.00-5.40); WHITE BLOOD COUNT 11.2 10^3/uL (4.0-10.0)
[2020-03-10 06:41] LABS: BLOOD UREA NITROGEN 6 MG/DL (7-18); CALCIUM LEVEL 8.2 MG/DL (8.5-10.1); CARBON DIOXIDE LEVEL 30 MEQ/L (21-32); CHLORIDE LEVEL 103 MEQ/L (98-107); CREATININE FOR GFR 0.43 MG/DL (0.55-1.30); GLOMERULAR FILTRATION RATE > 60.0 (>51); GLUCOSE, FASTING 79 MG/DL (70-100); MAGNESIUM LEVEL 1.5 MG/DL (1.8-2.4); POTASSIUM SERUM 2.8 MEQ/L (3.5-5.1); SODIUM LEVEL 140 MEQ/L (136-145)
[2020-03-10] MEDS ORDERED: POTASSIUM CHLORIDE 10 MEQ SR TABLET PO ONE (06:45)
[2020-03-10] MEDS: ALBUTEROL 90 MCG/ACT 8GM HFA INHALER INH PRN (06:59)
[2020-03-10] MEDS: KCL 40MEQ in NS 1000ML 1,000 ML IV SCH ×2 (07:39→20:30)
[2020-03-10] MEDS ORDERED: MAG SULF 1GM/100ML (MAG RUN) 1 GM in IV 1 EA IV ONE (08:00)
[2020-03-10] MEDS: SIMVASTATIN 40 MG TAB PO SCH (09:02)
[2020-03-10] MEDS: CYANOCOBALAMIN 500 MCG TAB PO SCH (09:02)
[2020-03-10] MEDS: PANTOPRAZOLE 40MG TAB (PROTONIX) PO SCH (09:02)
[2020-03-10] MEDS: ASPIRIN 81 MG ENTERIC TAB PO SCH (09:02)
[2020-03-10] MEDS: SERTRALINE 100 MG TAB PO SCH (09:02)
[2020-03-10] MEDS: CLOPIDOGREL 75 MG TAB PO SCH (10:19)
--- NOTE | 2020-03-10 13:18 | IPNPDOC ---
Text Note Date of Service The patient was seen on 03/10/20. NOTE Subjective: Patient is a 49-year-old female with PMHx of PVD, DLP, Asthma, Vitamin B12 deficiency, Depression and GERD who presented to the ER with lower extremity swelling. Patient reports that she was scheduled to receive a CT scan of her abdomen and pelvis today at the direction of her primary care provider. Patient noted that on 02/21 she was experiencing severe abdominal pain, reported as a 10/10, occurring in the lower portions of her abdomen. She called her primary care provider who had scheduled her an appointment to be seen on 03/01. Patient had an x-ray completed on the date that was negative. Patient continued to experience pain and was scheduled for an outpatient CT scan of her abdomen and pelvis on 03/09. Upon arrival [facility] patient noted that she is experiencing lower extremity swelling that prompted her to come to the ER for further evaluation. Upon arrival to emergency room, patient had imaging completed that revealed evidence of the pelvic abscess. She was admitted to the hospital service for further evaluation and treatment. Patient was seen and examined at the bedside. Currently patient denies any chest pain, shortness breath, palpitations, nausea, vomiting, or diarrhea. Patient was that she still expressing some abdominal discomfort. Reports no bowel movements since arrival yesterday. Denies any urinary discomfort. Objective: Vitals (See below) General: Lying in bed, appears comfortable, AAOx3 HEENT: NC, AT CVS: RRR, +S1S2 Lungs: Fair air entry b/l, no visual wheezing, rhonchi or rales Abdomen: Soft, nondistended and nontender Extremities: LE are without any edema, - Calf tenderness Imaging: Duplex US 03/09: There is no ultrasonographic evidence of deep venous thrombosis involving any of the visualized deep venous structures of the bilateral thigh, as described above. CXR 03/09: No acute pulmonary disease. CTA Chest 03/09: No PE CT Abdomen / Pelvis 03/09: Large pelvic abscess extending inferiorly from the region of the cecum, extending into the inferior right and left pelvis. A normal appendix is not visualized. I suspect the abscess is due to a ruptured appendicitis with abscess formation. Lower right colon and cecum are diffusely thickened, as is the sigmoid colon, likely inflammatory.. There are multiple sigmoid diverticula present. CT-guided drainage could be performed using a left gluteal approach. Assessment and plan: Pelvis abscess - possibly 2/2 ruptured appendicitis - Reported abdominal pain since 02/21 that has improved but lingered since then; Abdominal XR as an outpatient on 03/01 that was negative - Patient remains hemodynamically stable and afebrile - Mild leukocytosis with neutrophil predominance / no lactic acidosis - Imaging noted above - IR guided drainage of pelvic abscess today; no surgical intervention required at this time - ER providers have discussed with radiology; will be able to perform IR guided drainage in AM - c/w Clear liquid diet - c/w Zosyn (Day#2) and symptomatic control with Zofran / Morphine Hypokalemia and hypomagnesemia - Will provide supplementation LE swelling - Lower extremities have shown some improvement today - BNP noted - CTA of her chest did not reveal any significant vascular congestion - Patient was given a dose of Lasix 20mg IV in the ER - Will hold off on further diuresis - Strict ins/outs - ECHO pending PVD - Extensive surgery [place] [address] Hoskins - c/w ASA and Plavix DLP - c/w Simvastatin Asthma - c/w Albuterol PRN Vitamin B12 deficiency - c/w Depression - c/w Sertraline GERD - c/w Protonix DVT prophylaxis - Will resume Lovenox post procedure Disposition: - Awaiting clinical improvement and culture results Danyelle LEWIS, I+O VSDanyelle I+O Laboratory Tests 03/09/20 14:07 03/10/20 05:24 Vital Signs Date Time Temp Pulse Resp B/P (MAP) Pulse Ox O2 Delivery O2 Flow Rate FiO2 03/10/20 11:34 17 03/10/20 06:00 99.3 92 99/56 (70) 93 Room Air I&O- Last 24 Hours up to 6 AM 03/10/20 06:00 Intake Total 1750 ml Output Total 2010 ml Balance -260 ml BALBINA AHMADI MD Mar 10, 2020 13:18
[2020-03-10 13:45] VITALS: BP 98/59
[2020-03-10] MEDS: ACETAMINOPHEN TAB 650MG DOSE (2X325MG) PO PRN ×2 (14:32→21:35)
[2020-03-10] MEDS ORDERED: NS 500 ML IV ONE (17:00)
[2020-03-10] MEDS ORDERED: NS 1,000 ML IV SCH (17:15)
[2020-03-10 17:24] VITALS: BP 100/60
[2020-03-10 17:30] LABS: BASO # 0.1 10^3/uL (0.0-0.2); BASO % 0.5 % (0.0-1.0); EOS % 0.2 % (0.0-3.0); HEMATOCRIT 31.5 % (36.0-47.0); LYMPH % 8.4 % (24.0-44.0); MEAN CORPUSCULAR HEMOGLOBIN 31.5 pg (27.0-33.0); MEAN CORPUSCULAR HGB CONC 31.7 g/dl (32.0-36.5); MEAN CORPUSCULAR VOLUME 99.4 fl (80.0-96.0); MONO # 0.8 10^3/uL (0.0-0.8); MONO % 6.6 % (0.0-5.0); NEUTROPHILS # 10.1 10^3/uL (1.5-8.5); NEUTROPHILS % 83.7 % (36.0-66.0); PLATELET COUNT, AUTOMATED 581 10^3/uL (150-450); RED BLOOD COUNT 3.17 10^6/uL (4.00-5.40)
[2020-03-10 17:49] LABS: ALT/SGPT 11 U/L (12-78); BILIRUBIN,TOTAL 0.5 MG/DL (0.2-1.0); BLOOD UREA NITROGEN 4 MG/DL (7-18); CALCIUM LEVEL 8.4 MG/DL (8.5-10.1); CARBON DIOXIDE LEVEL 32 MEQ/L (21-32); CHLORIDE LEVEL 104 MEQ/L (98-107); CREATININE FOR GFR 0.39 MG/DL (0.55-1.30); GLOMERULAR FILTRATION RATE > 60.0 (>51); GLUCOSE, FASTING 78 MG/DL (70-100); MAGNESIUM LEVEL 1.8 MG/DL (1.8-2.4); POTASSIUM SERUM 4.2 MEQ/L (3.5-5.1); SODIUM LEVEL 141 MEQ/L (136-145)
[2020-03-10] MEDS: MORPHINE 2 MG/ML 1ML VIAL (J2270) IV PRN (18:34)
[2020-03-10 22:00] VITALS: BP 97/59
[2020-03-11] MEDS: PIPERACILLIN/TAZOBACTAM SOD 3.375 GM in D5W MINI-BAG PLUS 50 ML IV SCH ×4 (00:40→18:02)
[2020-03-11] MEDS: MORPHINE 2 MG/ML 1ML VIAL (J2270) IV PRN ×5 (03:38→22:06)
[2020-03-11 04:46] VITALS: BP 102/63
[2020-03-11 06:00] VITALS: BP 103/66
[2020-03-11 06:03] LABS: BASO % 0.4 % (0.0-1.0); EOS % 0.2 % (0.0-3.0); HEMATOCRIT 29.2 % (36.0-47.0); HEMOGLOBIN 9.2 g/dl (12.0-15.5); MEAN CORPUSCULAR HEMOGLOBIN 31.3 pg (27.0-33.0); MEAN CORPUSCULAR HGB CONC 31.5 g/dl (32.0-36.5); MEAN CORPUSCULAR VOLUME 99.3 fl (80.0-96.0); MONO # 0.5 10^3/uL (0.0-0.8); MONO % 6.7 % (0.0-5.0); NEUTROPHILS # 6.5 10^3/uL (1.5-8.5); NEUTROPHILS % 80.1 % (36.0-66.0); PLATELET COUNT, AUTOMATED 548 10^3/uL (150-450); RED BLOOD COUNT 2.94 10^6/uL (4.00-5.40); WHITE BLOOD COUNT 8.1 10^3/uL (4.0-10.0)
[2020-03-11 06:28] LABS: BLOOD UREA NITROGEN 5 MG/DL (7-18); CALCIUM LEVEL 8.4 MG/DL (8.5-10.1); CARBON DIOXIDE LEVEL 30 MEQ/L (21-32); CHLORIDE LEVEL 106 MEQ/L (98-107); CREATININE FOR GFR 0.38 MG/DL (0.55-1.30); GLOMERULAR FILTRATION RATE > 60.0 (>51); GLUCOSE, FASTING 81 MG/DL (70-100); MAGNESIUM LEVEL 1.8 MG/DL (1.8-2.4); POTASSIUM SERUM 3.9 MEQ/L (3.5-5.1); SODIUM LEVEL 139 MEQ/L (136-145)
[2020-03-11] MEDS: KCL 40MEQ in NS 1000ML 1,000 ML IV SCH (07:34)
[2020-03-11] MEDS: SERTRALINE 100 MG TAB PO SCH (08:35)
[2020-03-11] MEDS: CLOPIDOGREL 75 MG TAB PO SCH (08:35)
[2020-03-11] MEDS: PANTOPRAZOLE 40MG TAB (PROTONIX) PO SCH (08:35)
[2020-03-11] MEDS: SIMVASTATIN 40 MG TAB PO SCH (08:35)
[2020-03-11] MEDS: CYANOCOBALAMIN 500 MCG TAB PO SCH (08:35)
[2020-03-11] MEDS: ASPIRIN 81 MG ENTERIC TAB PO SCH (08:36)
--- NOTE | 2020-03-11 10:38 | ECHO ---
DATE OF PROCEDURE: 03/10/2020 Age: 49 Gender: Female Height: 60 inches Weight: 138 pounds Body surface area: 1.6 m2 PATIENT LOCATION: Inpatient [address] [place] [address], Room 4204. REFERRING PHYSICIAN: Katt Gann M.D. INDICATION: Edema. MEASUREMENTS: 2D Measurements: RV 3.4 cm LV 4.5 cm Septum 1.0 cm Posterior wall 1.0 cm Aortic Root 2.8 cm LA 3.9 cm LVEF 75% Doppler Measurements: AV 2.02 m/s LVOT 1.39 m/s Mean AV gradient 9 mmHg MV-E 131, A 115, E/A ratio 1.1 Early mitral deceleration time 180 msec E prime medial 8, A prime medial 8.8, E prime lateral 9.3 Average E/E prime ratio 15/PCWP 28.7 mmHg PV 0.8 m/s RVSP 37 mmHg IVC 1.9 cm COMMENTS: Normal sinus rhythm without intraventricular conduction disturbance. M-mode and two-dimensional echocardiography was performed with pulse, continuous wave, color flow, and tissue Doppler studies. Normal left ventricular size, wall thickness, and hyperkinetic wall motion. Left atrial size upper limits of normal with grade 2 LV diastolic dysfunction and mildly elevated estimated mean left atrial pressure. Normal right heart chamber sizes and motion with Doppler evidence of mild pulmonary hypertension. Normal IVC size and collapse against an elevated central venous pressure. Normal aortic dimensions. Three equal size aortic cusps with asymmetrical thickening of the left coronary cusp with slightly reduced cusp motion, but the other two cusps move normally. There was no significant left ventricular outflow tract obstruction. No apparent insufficiency. Normal appearing mitral valve apparatus with no more than trace insufficiency (physiologic). Normal appearing tricuspid valve with very mild insufficiency. No apparent intracardiac mass. 4 mm posterior pericardial effusion without any sign of cardiac chamber compression. No respiratory variation in Doppler flow signals. MTDD
[2020-03-11] MEDS: ENOXAPARIN 40MG/0.4ML SYRINGE (J1650 PER 10MG) SC SCH (12:22)
--- NOTE | 2020-03-11 12:55 | IPNPDOC ---
Text Note Date of Service The patient was seen on 03/11/20. NOTE Subjective: Patient is a 49-year-old female with PMHx of PVD, DLP, Asthma, Vitamin B12 deficiency, Depression and GERD who presented to the ER with lower extremity swelling. Patient reports that she was scheduled to receive a CT scan of her abdomen and pelvis today at the direction of her primary care provider. Patient noted that on 02/21 she was experiencing severe abdominal pain, reported as a 10/10, occurring in the lower portions of her abdomen. She called her primary care provider who had scheduled her an appointment to be seen on 03/01. Patient had an x-ray completed on the date that was negative. Patient continued to experience pain and was scheduled for an outpatient CT scan of her abdomen and pelvis on 03/09. Upon arrival to [facility] patient noted that she is experiencing lower extremity swelling that prompted her to come to the ER for further evaluation. Upon arrival to emergency room, patient had imaging completed that revealed evidence of the pelvic abscess. She was admitted to the hospital service for further evaluation and treatment. Patient was seen and examined at the bedside. Patient reports that she feels vitals fine. Reports abdominal pain is improved compared to yesterday. Denies any chest pain, shortness breath, palpitations, does not experience any nausea, vomiting. Reports improvement of her abdominal pain has had a bowel movement yesterday. Is asking to have her diet advanced. Objective: Vitals (See below) General: Sitting up in bed, appears to be comfortable, AAOx3 HEENT: NC, AT CVS: +S1S2 Lungs: Again, air entry is fair bilaterally without any evidence of rhonchi, crackles or wheezing Abdomen: Abdomen has remained soft without any distention or tenderness Extremities: LE are without any edema, - Calf tenderness Imaging: Duplex US 03/09: There is no ultrasonographic evidence of deep venous thrombosis involving any of the visualized deep venous structures of the bilateral thigh, as described above. CXR 03/09: No acute pulmonary disease. CTA Chest 03/09: No PE CT Abdomen / Pelvis 03/09: Large pelvic abscess extending inferiorly from the region of the cecum, extending into the inferior right and left pelvis. A normal appendix is not vi sualized. I suspect the abscess is due to a ruptured appendicitis with abscess formation. Lower right colon and cecum are diffusely thickened, as is the sigmoid colon, likely inflammatory.. There are multiple sigmoid diverticula present. CT-guided drainage could be performed using a left gluteal approach. Assessment and plan: Pelvis abscess - possibly 2/2 ruptured appendicitis - Reported abdominal pain since 02/21 that has improved but lingered since then; Abdominal XR as an outpatient on 03/01 that was negative - Hemodynamically stable and afebrile - s/p leukocytosis / No lactic acidosis - Abscess culture 03/10: Pending - Imaging noted above - s/p IR guided drainage (03/10) - Will advance diet - c/w Zosyn (Day#3) and symptomatic control with Zofran / Morphine s/p Hypokalemia and hypomagnesemia - Will provide supplementation s/p LE swelling - No significant edema - BNP noted - CTA of her chest did not reveal any significant vascular congestion - s/p Furosemide 20 IV in ER - Will hold off on further diuresis - Strict ins/outs - ECHO complete; report pending PVD - Extensive surgery [place] [address] Hoskins - c/w ASA and Plavix DLP - c/w Simvastatin Asthma - c/w Albuterol PRN Vitamin B12 deficiency - c/w supplementation Depression - c/w Sertraline GERD - c/w Protonix DVT prophylaxis - c/w Lovenox Disposition: - Awaiting culture results Danyelle LEWIS I+O Danyelle LEWIS I+O Laboratory Tests 03/10/20 17:11 03/11/20 05:32 Vital Signs Date Time Temp Pulse Resp B/P (MAP) Pulse Ox O2 Delivery O2 Flow Rate FiO2 03/11/20 09:02 17 03/11/20 06:00 98.5 78 103/66 (78) 96 Room Air I&O- Last 24 Hours up to 6 AM 03/11/20 05:59 Intake Total 2400 ml Output Total 1545 ml Balance 855 ml BALBIAN AHMADI MD Mar 11, 2020 12:55
[2020-03-11 14:00] VITALS: BP 99/56
[2020-03-11] MEDS: ALBUTEROL 90 MCG/ACT 8GM HFA INHALER INH PRN (14:49)
--- NOTE | 2020-03-11 17:53 | REP ---
INDICATION: PELVIC ABSCESS. COMPARISON: CT abdomen with IV contrast dated 03/09/2020. TECHNIQUE: The procedure is performed by Cande Chambers [facility], under the direct supervision of Dr. Coleman. The risks and benefits of the procedure were explained to the patient and informed consent was obtained both orally and written. Directly prior to the start of the procedure, a formal timeout was done in the exam room. The pelvic abscess was localized using CT guidance. Skin was prepped and draped in the usual sterile fashion. Sixteen ml of buffered lidocaine was used as a local anesthetic. FINDINGS: Using CT guidance and trochar technique a 10 Irish pigtail catheter was inserted and advanced into the pelvic abscess. Approximately 90 mL of pus was removed and sent to the lab for further analysis. The drainage tube was sutured in place, hooked up to a drainage bag, and a sterile dressing was applied. CT images obtained directly after the abscess drainage show the pigtail catheter to be in satisfactory placement. After the appropriate amount of monitored convalescence the patient was discharged back to the unit. IMPRESSION: CT-guided pigtail catheter insertion into pelvic abscess. <Electronically signed by Cande Chambers > 03/10/20 1740 <Electronically signed by Leif Coleman > 03/11/20 1748
[2020-03-11 22:00] VITALS: BP 98/56
[2020-03-12] MEDS: PIPERACILLIN/TAZOBACTAM SOD 3.375 GM in D5W MINI-BAG PLUS 50 ML IV SCH ×2 (00:05→06:02)
[2020-03-12] MEDS: MORPHINE 2 MG/ML 1ML VIAL (J2270) IV PRN ×2 (02:03→06:02)
[2020-03-12] MEDS: ALBUTEROL 90 MCG/ACT 8GM HFA INHALER INH PRN ×2 (02:23→09:55)
[2020-03-12] MEDS: ACETAMINOPHEN TAB 650MG DOSE (2X325MG) PO PRN (03:55)
[2020-03-12 06:00] VITALS: BP 99/64
[2020-03-12 07:23] LABS: BASO % 0.5 % (0.0-1.0); EOS # 0.1 10^3/uL (0.0-0.5); EOS % 0.7 % (0.0-3.0); HEMATOCRIT 30.6 % (36.0-47.0); HEMOGLOBIN 9.7 g/dl (12.0-15.5); LYMPH # 1.5 10^3/uL (1.5-5.0); MEAN CORPUSCULAR HEMOGLOBIN 31.2 pg (27.0-33.0); MEAN CORPUSCULAR HGB CONC 31.7 g/dl (32.0-36.5); MEAN CORPUSCULAR VOLUME 98.4 fl (80.0-96.0); MONO # 0.6 10^3/uL (0.0-0.8); MONO % 7.1 % (0.0-5.0); NEUTROPHILS # 5.9 10^3/uL (1.5-8.5); NEUTROPHILS % 73.2 % (36.0-66.0); PLATELET COUNT, AUTOMATED 604 10^3/uL (150-450); RED BLOOD COUNT 3.11 10^6/uL (4.00-5.40); WHITE BLOOD COUNT 8.1 10^3/uL (4.0-10.0)
[2020-03-12 07:38] LABS: BLOOD UREA NITROGEN 7 MG/DL (7-18); CALCIUM LEVEL 7.8 MG/DL (8.5-10.1); CARBON DIOXIDE LEVEL 30 MEQ/L (21-32); CHLORIDE LEVEL 103 MEQ/L (98-107); CREATININE FOR GFR 0.42 MG/DL (0.55-1.30); GLOMERULAR FILTRATION RATE > 60.0 (>51); GLUCOSE, FASTING 92 MG/DL (70-100); MAGNESIUM LEVEL 1.8 MG/DL (1.8-2.4); POTASSIUM SERUM 4.3 MEQ/L (3.5-5.1); SODIUM LEVEL 139 MEQ/L (136-145)
[2020-03-12] MEDS ORDERED: PERCOCET 5MG/325MG TAB PO PRN (08:45)
[2020-03-12] MEDS ORDERED: SENOKOT S TAB PO SCH (09:00)
[2020-03-12] MEDS: ENOXAPARIN 40MG/0.4ML SYRINGE (J1650 PER 10MG) SC SCH ×2 (09:00→09:51)
[2020-03-12] MEDS: CLOPIDOGREL 75 MG TAB PO SCH (09:48)
[2020-03-12] MEDS: PANTOPRAZOLE 40MG TAB (PROTONIX) PO SCH (09:48)
[2020-03-12] MEDS: CYANOCOBALAMIN 500 MCG TAB PO SCH (09:48)
[2020-03-12] MEDS: SIMVASTATIN 40 MG TAB PO SCH (09:48)
[2020-03-12] MEDS: ASPIRIN 81 MG ENTERIC TAB PO SCH (09:48)
[2020-03-12] MEDS: SERTRALINE 100 MG TAB PO SCH (09:48)
[2020-03-12] MEDS ORDERED: LEVO750T13 PO (12:27)
[2020-03-12] MEDS ORDERED: FLAG500T PO ×2 (12:27→14:16)
[2020-03-12 14:00] VITALS: BP 93/60
[2020-03-12] MEDS ORDERED: metroNIDAZOLE (FLAGYL) 500MG TABLET PO SCH (14:00)
[2020-03-12] MEDS ORDERED: OXYC1TAB23 PO (14:35)
[2020-03-12] MEDS ORDERED: VENTAER INH (14:40)
[2020-03-12] MEDS ORDERED: LevoFLOXacin 750 MG TABLET PO SCH (15:00)
--- NOTE | 2020-03-12 16:07 | DS.PDOC ---
Discharge Summary General Date of Admission Mar 09, 2020 at 17:49 Date of Discharge March 12, 2020 Primary Care Physician: SHEELA ANTHONY PA-C Attending Physician: KATT GANN MD Discharge Summary PROCEDURES PERFORMED DURING STAY: pelvic abscess drainage ADMITTING DIAGNOSES: 1. Pelvic abscess 2/2 ruptured appendicitis DISCHARGE DIAGNOSES: 1. Pelvic abscess 2/2 ruptured appendicitis COMPLICATIONS/CHIEF COMPLAINT: R Leg Swelling/ Pain. HISTORY OF PRESENT ILLNESS: Patient is a 49-year-old female who presented to the emergency room with lower shortly swelling. Patient reports that she was scheduled to receive a CT scan of her abdomen and pelvis today at the direction of her primary care provider. Patient noted that on 02/21 she was expressing severe abdominal pain, reported as a 10/10, occurring in the lower portions of her abdomen. Should called her primary care provider who had scheduled her an appointment to be seen on 03/01. Patient had an x-ray completed on the date that was negative. Patient continued to experience pain and was scheduled for an outpatient CT scan of her abdomen and pelvis on 03/09. Upon arrival to [facility] patient noted that she is experiencing lower extremity swelling that prompted her to come to the ER for further evaluation. Patient reports that she is experiencing some abdominal pain in the lower portions of the abdomen reported as a 7/10, aching/throbbing/pressure-like, alleviated with medications received in the emergency room and aggravated by nothing. Patient denies any nausea, vomiting, diarrhea or constipation. Denies any urinary discomfort. Reports her last bowel movement was this morning reported as normal without any significant bleeding. Patient reports that while at home, she had measured a fever of 100.7F 3 days ago has reported some chills. Patient also reports a weight loss of approximately 13 pounds over 2 weeks and a poor appetite. Patient denies any chest pain, shortness breath, palpitations or cough. HOSPITAL COURSE: Pelvis abscess - possibly 2/2 ruptured appendicitis - Reported abdominal pain since 02/21 that has improved but lingered since then; Abdominal XR as an outpatient on 03/01 that was negative - Hemodynamically stable and afebrile - s/p leukocytosis / No lactic acidosis - Abscess culture 03/10: Pending - Imaging noted above - s/p IR guided drainage (03/10) -Tolerated diet - c/w Zosyn (Day#3) and symptomatic control with Zofran / Morphine - Cultures grew Escherichia coli sensitive to Levaquin. Antibiotics changed to Levaquin and Flagyl s/p Hypokalemia and hypomagnesemia - Will provide supplementation s/p LE swelling - No significant edema - BNP noted - CTA of her chest did not reveal any significant vascular congestion - s/p Furosemide 20 IV in ER - Will hold off on further diuresis - Strict ins/outs - ECHO complete; report pending PVD - Extensive surgery [place] [address] Hoskins - c/w ASA and Plavix DLP - c/w Simvastatin Asthma - c/w Albuterol PRN Vitamin B12 deficiency - c/w supplementation Depression - c/w Sertraline DISCHARGE MEDICATIONS: Please see below. ALLERGIES: Please see below. PHYSICAL EXAMINATION ON DISCHARGE: VITAL SIGNS: Please see below. GENERAL: alert and oriented, in no apparent distress, pleasant and conversant in full sentences. HEENT: PERRL, EOMI, Oral mucous membranes are moist without lesions. NECK: The patient has no noted JVD. No adenopathy is appreciated. No thyromegaly CHEST/LUNGS: Lungs are clear bilaterally without rhonchi, rales, or wheezes. There is no subcutaneous air appreciated. There is no tenderness to the chest wall. HEART:Regular rate and rhythm. No murmurs, rubs, or gallops are appreciated. Distal pulses are 2+. No carotid bruits appreciated. ABDOMEN: Soft, nontender, and nondistended. Bowel sounds are positive. No organomegaly is appreciated. No masses are appreciated. There are no peritoneal signs. There is no [place] sign. Drainage tube is present in the left lower back near the buttocks draining greenish fluid. Entry of the drain is clean/dry/intact EXTREMITIES: There is trace edema in bilateral lower extremities. There is no focal long bone tenderness or deformity. SKIN: The patients skin is warm and dry, without rashes or lesions. PSYCHIATRIC: AAO x 3, normal mood/affect NEUROLOGIC: The patient has 5/5 strength to the upper and lower extremities bilaterally. Sensation is intact throughout. Deep tendon reflexes are 2+ in all four extremities. There are no deficits to the cranial nerves. LABORATORY DATA: Please see below. IMAGING: Duplex US 03/09: There is no ultrasonographic evidence of deep venous thrombosis involving any of the visualized deep venous structures of the bilateral thigh, as described above. CXR 03/09: No acute pulmonary disease. CTA Chest 03/09: No PE CT Abdomen / Pelvis 03/09: Large pelvic abscess extending inferiorly from the region of the cecum, extending into the inferior right and left pelvis. A normal appendix is not visualized. I suspect the abscess is due to a ruptured appendicitis with abscess formation. Lower right colon and cecum are diffusely thickened, as is the sigmoid colon, likely inflammatory.. There are multiple sigmoid diverticula present. CT-guided drainage could be performed using a left gluteal approach. PROGNOSIS: Fair ACTIVITY: [As tolerated]. DIET: Regular DISCHARGE PLAN: Home DISPOSITION: Home, Self-Care. DISCHARGE INSTRUCTIONS: 1. Follow-up with interventional radiology in one month 2. Subsequently follow-up with surgery, Dr. Carrera, after drain removed 3. Follow-up with PCP in interim 4. Complete antibiotic course of Levaquin 9 days, Flagyl 9 days ITEMS TO FOLLOWUP ON ON OUTPATIENT: 1. Drain removal DISCHARGE CONDITION: [Stable]. TIME SPENT ON DISCHARGE: 35 minutes. Vital Signs/I&Os Vital Signs Date Time Temp Pulse Resp B/P (MAP) Pulse Ox O2 Delivery O2 Flow Rate FiO2 03/12/20 14:00 98.1 80 18 93/60 (71) 97 Room Air I&O- Last 24 Hours up to 6 AM 03/12/20 06:00 Intake Total 2940 ml Output Total 2300 ml Balance 640 ml Laboratory Data Labs 24H Laboratory Tests 2 03/12/20 05:47: Immature Granulocyte % (Auto) 0.5, Neutrophils (%) (Auto) 73.2H, Lymphocytes (%) (Auto) 18.0L, Monocytes (%) (Auto) 7.1H, Eosinophils (%) (Auto) 0.7, Basophils (%) (Auto) 0.5, Neutrophils # (Auto) 5.9, Lymphocytes # (Auto) 1.5, Monocytes # (Auto) 0.6, Eosinophils # (Auto) 0.1, Basophils # (Auto) 0.0, Nucleated Red Blood Cells % (auto) 0.0, Anion Gap 6L, Glomerular Filtration Rate > 60.0, Calcium Level 7.8L, Magnesium Level 1.8 CBC/BMP Laboratory Tests 03/12/20 05:47 Microbiology Microbiology 03/10/20 Gram Stain - Final, Resulted 03/10/20 Abscess Culture - Preliminary, Resulted Escherichia Coli Discharge Medications Scheduled Aspirin (Aspirin EC) 81 Mg Tab, 81 MG PO DAILY, (Reported) Clopidogrel Bisulfate (Plavix) 75 Mg Tab, 75 MG PO DAILY, (Reported) Cyanocobalamin (Vitamin B-12) (Vitamin B-12) 500 Mcg Tablet, 1,000 MCG PO DAILY, (Reported) Docusate Sodium (Colace) 100 Mg Capsule, 100 MG PO DAILY, (Reported) Levofloxacin (Levofloxacin) 750 Mg Tablet, 750 MG PO DAILY@1800 Metronidazole (Flagyl) 500 Mg Tablet, 500 MG PO Q8H Pantoprazole Sodium (Protonix) 40 Mg Tablet.dr, 40 MG PO DAILY, (Reported) Sertraline HCl (Sertraline HCl) 100 Mg Tablet, 100 MG PO DAILY, (Reported) Simvastatin (Simvastatin) 40 Mg Tablet, 40 MG PO DAILY, (Reported) Scheduled PRN Acetaminophen (Acetaminophen) 500 Mg Tablet, 1,000 MG PO Q6H PRN for PAIN, (Reported) Albuterol Sulfate (Proair Hfa) 8.5 Gm Hfa.aer.ad, 2 PUFF INH QID PRN for SOB/WHEEZING, (Reported) Albuterol Sulfate (Ventolin Hfa) 18 Gm Hfa.aer.ad, 2 PUFF INH Q4-6HP PRN for wheezing Epinephrine (Epipen 2-Wu) 0.3 Mg/0.3 Ml Auto.injct, 0.3 MG IM ONCE PRN for ALLERGIC REACTION, (Reported) Oxycodone HCl/Acetaminophen (Oxycodone-Acetaminophen 5-325) 1 Each Tablet, 1 TAB PO QIDP PRN for pain Allergies Coded Allergies: No Known Allergies (Unverified , 06/26/17) GME ATTESTATION GME ATTESTATION My faculty preceptor for this patient encounter was physically present during the encounter and was fully available. All aspects of the patient interview, examination, medical decision making process, and medical care plan development were reviewed and approved by the faculty preceptor. The faculty preceptor is aware and concurs with the plan as stated in the body of this note and will attest to such by his/her cosignature. ATTENDING NOTE I, Katt Gann, have independently examined this patient and performed my own physical exam, as well as reviewed the documentation and edited where necessary. I have discussed in detail with the resident / student the findings and plan of treatment as documented by the resident / student and edited their note. I agree with their findings and treatment plan and have edited their documentation. I will continue to follow the patient during this hospital stay. Time spent on discharge: 35 minutes MAVRIN LUND MD Mar 12, 2020 16:07 KATT GANN MD Mar 12, 2020 16:14
== END 2020-03-12 14:50 | disposition home or self-care (01) | DRG 248 ==
LOC: M ED 12:00 → M ED INP 17:49 → M MSPAV 22:30
PROVIDERS: ADMIT Internal Medicine; ATTEND Internal Medicine
PROC: 0W9J30Z Drainage of Pelvic Cavity with Drainage Device, Percutaneous Approach (ICD-10-PCS; principal; 2020-03-10 15:30)
DX: K35.32 Acute appendicitis with perforation, localized peritonitis, and gangrene, without abscess (principal); E83.42 Hypomagnesemia; E53.8 Deficiency of other specified B group vitamins; J45.909 Unspecified asthma, uncomplicated; K21.9 Gastro-esophageal reflux disease without esophagitis; E87.6 Hypokalemia; I73.9 Peripheral vascular disease, unspecified; F32.9 Major depressive disorder, single episode, unspecified; Z79.82 Long term (current) use of aspirin; Z79.899 Other long term (current) drug therapy

== ENCOUNTER → 2020-04-29 | Outpatient (REF) | payer BC ==
[~2020-04-29] MED LIST changes: +FLAG500T PO; +LEVO750T13 PO; +PROAAER10 INH; +SERT-138 PO
== END ==
LOC: M SFHCPLAZ 14:06
DX: Z53.9 Procedure and treatment not carried out, unspecified reason (principal); D64.9 Anemia, unspecified; E53.8 Deficiency of other specified B group vitamins; Z13.1 Encounter for screening for diabetes mellitus

== ENCOUNTER → 2020-05-03 | Outpatient (CLI) | payer BC ==
[~2020-05-03] MED LIST changes: +GASTROGRAFIN SOLUTION 30ML (Q9963) As Ordered ONE; +ISOVUE-370 76% 100ML VIAL As Ordered ONE
--- NOTE | 2020-05-03 15:42 | REP ---
INDICATION: ACUTE APPENDICITIS WITH GEN PERITONITIS HAS LABS FIRST. COMPARISON: 03/09/2020 TECHNIQUE: Axial contrast-enhanced images from the lung bases to the pubic symphysis using oral and 100 cc Isovue 370 intravenous contrast material. Coronal and sagittal reformations obtained. This CT examination was performed using the following dose reduction techniques: Automated exposure control, adjustment of mA and/or kv according to the patient's size, and the use of iterative reconstruction technique. FINDINGS: Inflammatory changes in the pelvis with thickening at the base of the cecum and small residual abscess cavity measuring roughly 3.5 x 2.5 x 2.5 cm maximal diameter with surrounding inflammatory change noted (series 201 images 90-107), but considerably improved as compared to prior examination. Current examination also demonstrates mucosal thickening of the adjacent sigmoid colon (images 89-103) concerning for associated colitis. There is no evidence for free air, and no evidence for bowel obstruction. Liver, spleen, pancreas, gallbladder, bilateral adrenal glands and kidneys are stable and essentially normal. Further evaluation of the pelvis demonstrates normal bladder and uterus/adnexa. Focal infrarenal abdominal aortic aneurysm without significant atherosclerotic changes again noted measuring 3.3 cm maximal diameter to the level of the aortic bifurcation. Musculoskeletal structures demonstrate age-related changes. Lung bases are clear. IMPRESSION: 1. In comparison with prior examination inflammatory findings within the pelvis appear improved including significantly decreased small residual pelvic abscess and inflammatory changes. 2. Mucosal thickening of the adjacent sigmoid colon concerning for sigmoid colitis. Follow-up colonoscopy may be warranted to exclude further pathology. 3. Infrarenal abdominal aortic aneurysm essentially unchanged from prior examination and prior ultrasound dated 07/23/2019. <Electronically signed by Sridhar Hendricks > 05/03/20 [id number]
== END ==
LOC: M RAD 13:23
PROVIDERS: ATTEND Surgery
DX: K35.21 Acute appendicitis with generalized peritonitis, with abscess (principal)
CPT/HCPCS: 74177; Q9963; Q9967

== ENCOUNTER → 2020-05-03 | Outpatient (CLI) | payer BC ==
[~2020-05-03] MED LIST changes: -GASTROGRAFIN SOLUTION 30ML (Q9963) As Ordered ONE; -ISOVUE-370 76% 100ML VIAL As Ordered ONE
[2020-05-03 14:42] LABS: PERCENT SATURATION 15.6 % (13.2-45.0)
[2020-05-03 15:33] LABS: HEMOGLOBIN A1c 4.3 %
== END ==
LOC: M LAB 13:26
PROVIDERS: ATTEND Internal Medicine
DX: D64.9 Anemia, unspecified (principal)

== ENCOUNTER → 2020-07-19 | Outpatient (CLI) | payer BC ==
[2020-07-19 12:40] LABS: HEMATOCRIT 42.6 % (36.0-47.0); HEMOGLOBIN 13.7 g/dl (12.0-15.5); MEAN CORPUSCULAR HGB CONC 32.2 g/dl (32.0-36.5); MEAN CORPUSCULAR VOLUME 96.4 fl (80.0-96.0); PLATELET COUNT, AUTOMATED 291 10^3/uL (150-450); RED BLOOD COUNT 4.42 10^6/uL (4.00-5.40); WHITE BLOOD COUNT 5.8 10^3/uL (4.0-10.0)
[2020-07-19 13:21] LABS: TOTAL 25(OH) VITAMIN D 33.3 NG/ML (30.0-100.0)
== END ==
LOC: M LAB 11:57
PROVIDERS: ATTEND Student in an Organized Health Care Education/Training Program
DX: Z86.010 Personal history of colon polyps (principal); R13.10 Dysphagia, unspecified; K21.9 Gastro-esophageal reflux disease without esophagitis; E55.9 Vitamin D deficiency, unspecified

== ENCOUNTER → 2020-07-19 | Outpatient (CLI) | payer BC ==
--- NOTE | 2020-07-19 15:33 | REP ---
INDICATION: ATHSCL [place] ARTERIES OF EXTRM [facility] DOMI,LABS 1ST COMPARISON: 09/16/2019 TECHNIQUE: Real time coleman scale and color Doppler evaluation of the bilateral lower extremity arterial vasculature using linear high frequency transducer. FINDINGS: Coleman scale and color images demonstrate mild to moderate amounts of atheromatous plaquing with no focal stenosis or occlusion identified. Right lower extremity is without significant change from prior examination and demonstrates primarily triphasic arterial wave patterns to the level of the proximal posterior tibial artery along with biphasic wave patterns to the proximal posterior tibial artery and distal anterior tibial artery along with monophasic wave pattern to the distal posterior tibial artery. Right ARNULFO: 1.1 Left lower extremity is without significant change from prior examination and demonstrates primarily triphasic wave patterns with the exception of biphasic wave pattern at the profundus, proximal posterior tibial artery, and anterior tibial artery as well as monophasic wave pattern through the distal posterior tibial artery. Left ARNULFO: 0.9 Peak systolic velocities (cm/sec) Common femoral artery: Right 123; Left 92 Profunda femoris: Right 106; Left 74 SFA (proximal): Right 121; Left 1110 SFA (mid): Right 117; Left 128 SFA (distal): Right 96; Left 85 Popliteal artery: Right 73; Left 103 DEMI (prox.): Right 68; Left 61 Tibioperoneal trunk: Right 64; Left 74 IT HELP DESK ANALYST (prox.): Right 87; Left 69 IT HELP DESK ANALYST (distal): Right 102; Left 72 DEMI (distal): Right 82; Left 48 The distal aorta above the bifurcation has a velocity of 69 cm/sec. Right common iliac artery velocity at 148 cm/sec and monophasic. Right external iliac artery velocity at 78 cm/sec and triphasic. Left common iliac artery velocity at 115 cm/sec and monophasic. Left external iliac artery velocity at 66 cm/sec and triphasic. IMPRESSION: Findings as described above may be slightly progressive when compared to prior examination, but without evidence for stenosis or occlusion. <Electronically signed by Sridhar Hendricks > 07/19/20 [id number]
--- NOTE | 2020-07-19 15:45 | REP ---
INDICATION: ATHSCL [place] ARTERIES OF EXTRM W INTRMT DOMI,LABS 1ST. COMPARISON: 09/17/2019 TECHNIQUE: Real time [place] scale and color Doppler evaluation of the left upper extremity arterial vasculature using linear high frequency transducer. FINDINGS: Monophasic wave patterns are noted throughout the left upper extremity. Reversed flow noted through the visualized left vertebral artery. Subclavian artery (prox): 46 cm/sec with turbulent flow Subclavian artery (dist): 65 cm/sec with turbulent flow Axillary artery: 44 cm/sec Brachial artery: 79 cm/sec Ulnar artery (prox): 54 cm/sec Ulnar artery (dist): 56 cm/sec Radial artery (prox): 45 cm/sec Radial artery (dist): 44 cm/sec IMPRESSION: There is no evidence for stenosis or occlusion on current examination. Monophasic wave patterns and velocities as described above similar to prior examination including reversed flow through the vertebral artery. <Electronically signed by Sridhar Hendricks > 07/19/20 [id number]
== END ==
LOC: M RAD 11:50
PROVIDERS: ATTEND Physician Assistant
DX: I70.213 Atherosclerosis of native arteries of extremities with intermittent claudication, bilateral legs (principal); I70.218 Atherosclerosis of native arteries of extremities with intermittent claudication, other extremity

== ENCOUNTER 2020-08-23 21:40 | Observation (INO) | payer BC ==
[~2020-08-23] VITALS: Ht 152.4 cm; Wt 57.6 kg
[2020-08-23 22:39] LABS: BASO # 0.1 10^3/uL (0.0-0.2); BASO % 0.7 % (0.0-1.0); EOS # 0.1 10^3/uL (0.0-0.5); EOS % 1.2 % (0.0-3.0); HEMOGLOBIN 13.9 g/dl (12.0-15.5); LYMPH # 2.3 10^3/uL (1.5-5.0); LYMPH % 30.9 % (24.0-44.0); MEAN CORPUSCULAR HEMOGLOBIN 31.9 pg (27.0-33.0); MEAN CORPUSCULAR HGB CONC 33.1 g/dl (32.0-36.5); MEAN CORPUSCULAR VOLUME 96.3 fl (80.0-96.0); MONO # 0.4 10^3/uL (0.0-0.8); MONO % 5.2 % (2.0-8.0); NEUTROPHILS # 4.6 10^3/uL (1.5-8.5); NEUTROPHILS % 61.9 % (36.0-66.0); PLATELET COUNT, AUTOMATED 307 10^3/uL (150-450); RED BLOOD COUNT 4.36 10^6/uL (4.00-5.40); WHITE BLOOD COUNT 7.5 10^3/uL (4.0-10.0)
[2020-08-23] MEDS ORDERED: ONDANSETRON 4MG/2ML VIAL IV ONE (22:50)
[2020-08-23] MEDS ORDERED: MORPHINE 4 MG/ML 1ML VIAL/SYRINGE (J2270) IV PRN (22:50)
[2020-08-23] MEDS ORDERED: ISOVUE-370 76% 100ML VIAL As Ordered ONE (22:54)
[2020-08-23 22:58] LABS: ALBUMIN 3.9 GM/DL (3.2-5.2); BILIRUBIN,DIRECT 0.1 MG/DL (0.0-0.2); BILIRUBIN,TOTAL 0.3 MG/DL (0.2-1.0); TOTAL PROTEIN 7.6 GM/DL (6.4-8.2)
--- NOTE | 2020-08-23 23:58 | REPVR ---
PROCEDURE INFORMATION: Exam: CTA Abdomen and Pelvis With Contrast Exam date and time: 08/23/2020 10:47 PM Age: 50 years old Clinical indication: Other: Bruise; Additional info: Abd pain, large bruise without trauma, multiple vasc stents TECHNIQUE: Imaging protocol: Computed tomographic angiography of the abdomen and pelvis with contrast material. 3D rendering (Not supervised by radiologist): MIP and/or 3D reconstructed images were created by the technologist. Radiation optimization: All CT scans at this facility use at least one of these dose optimization techniques: automated exposure control; mA and/or kV adjustment per patient size (includes targeted exams where dose is matched to clinical indication); or iterative reconstruction. Contrast material: ISO; Contrast volume: 100 ml; Contrast route: INTRAVENOUS (IV); COMPARISON: CT ANGIO ABDOMINAL ARTERIES 06/28/2017 8:19 AM FINDINGS: Lungs: Clear appearing lung bases. Heart: The heart is normal in size and there is no pericardial effusion. Aorta: Aneurysmal dilatation has occurred of the lower abdominal aorta since 06/28/2017. The AP dimension is 2.8 cm, transverse dimension 2.9 cm and the length is 3.9 cm. There is anastomosis of a dual lumen graft which is contiguous with the right and left iliac artery. This graft is new since 2018. Celiac trunk and mesenteric arteries: There is opacification of the SMA. There is opacification of the renal arteries. Liver: The liver has uniform enhancement. Gallbladder and bile ducts: Normal common bile duct. Normal-sized gallbladder. Pancreas: Normal pancreas. Spleen: Normal appearing spleen. Adrenal glands: Normal adrenal glands. Kidneys and ureters: The right lobe of the liver measures 16 cm in length however there is displacement of the right kidney inferiorly. There is enhancement of both kidneys. There is no evidence of hydronephrosis. Stomach and bowel: There is prominent thickening of the wall of the stomach which can be seen with gastritis. There is diffuse thickening of the bowel wall of the sigmoid colon which may be hypertrophy from chronic changes of diverticulitis. This has progressed since 2018. Changes of colitis or infiltrative process not excluded and recommend correlation with colonoscopy or barium enema. Appendix: No evidence of appendicitis. Intraperitoneal space: There is no evidence pneumoperitoneum. There are secretions and air fluid levels in the ileum which may be secondary to mild ileus. There is no evidence of free fluid in the abdomen. There may be trace fluid in the right pelvis. Lymph nodes: Small lymph nodes are noted along the course of the aorta. Urinary bladder: Normal urinary bladder. Reproductive: The uterus is mildly prominent. Bones/joints: There are healed rib fractures at the left lung base. There is a large left paracentral disc protrusion L3-L4 causing impression on the thecal sac. Posterior osteophyte formation is noted T12-L1. There is posterior disc protrusion L4-L5 and L5-S1. Soft tissues: There is a small anterior abdominal wall hernia inferior most aspect of the abdomen measuring 3 cm. There is protrusion of mesenteric fat but no evidence of protrusion of bowel. In the subcutaneous layer air to the right of the umbilicus is a 4 cm by 1.6 cm area of density and probably a hematoma associated with subcutaneous swelling. This could also be an area of infection or a subcutaneous mass lesion. there is thickening of the anterior abdominal wall as well in this location as well. Because there is also skin thickening an area of cellulitis not excluded. IMPRESSION: 1. 4 cm x 4 cm x 1.6 cm in thickness area of possible hematoma in the subcutaneous layer to the right of the umbilicus. Area of infection or mass lesion would be other considerations. There is soft tissue swelling and skin thickening. The skin thickening may be the result of edema or cellulitis. 2. Since 2018 there has been development of a 2.8 cm x 2.9 cm lower abdominal aortic aneurysm. This is 3.9 cm in length and anastomosed with a bi lumen graft. 3. Thickening of the gastric wall may be gastritis however I could not exclude infiltrative process. Diffuse thickening of the sigmoid colon may be hypertrophy from chronic changes of diverticulitis. Acute colitis possible as well. Recommend correlation with colonoscopy or barium enema. 4. Mild ileus. Electronically signed by: Michael Armstrong On 08/23/2020 23:57:49 PM
[2020-08-24] MEDS ORDERED: HYDROMORPHONE HCL 0.5 MG/ 0.5 ML SYRINGE (J1170 PER 1) IV PRN (01:30)
[2020-08-24] MEDS ORDERED: NS 1,000 ML IV ONE (02:10)
[2020-08-24] MEDS ORDERED: MAALOX 30 ML SUSP *UDC PO PRN (02:45)
[2020-08-24] MEDS ORDERED: ACETAMINOPHEN TAB 650MG DOSE (2X325MG) PO PRN (02:45)
[2020-08-24] MEDS ORDERED: MOM 30ML SUSPENSION UDC PO PRN (02:45)
[2020-08-24] MEDS ORDERED: IPRATROPIUM 0.5MG/ALBUTEROL 2.5MG INH SOL UD 3ML (DUONEB) NEB PRN (03:20)
[2020-08-24 03:23] LABS: RSV AMPLIFICATION NEGATIVE (NEGATIVE)
--- NOTE | 2020-08-24 03:35 | HPEPDOC ---
[facility] Medical History & Physical Date of Admission Aug 24, 2020 Date of Service: Aug 24, 2020 Attending Physician: TRISTEN PEACOCK DO History and Physical CHIEF COMPLAINT: Abdominal wall pain and swelling HISTORY OF PRESENT ILLNESS: Mrs. Oliver is a 50-year-old female who presented to the ER with complaints of sudden onset of pain/tenderness with swelling at the right abdomen. She denies any trauma to the area. She says she has been working in the garden in the yard recently. She denies any fever, chills, nausea, vomiting or diarrhea. Patient has a significant history of peripheral vascular disease with multiple grafts and bypasses. She is maintained on aspirin and Plavix. She was wearing tank top. This afternoon when her daughter noticed some swelling at the right abdomen. The area became more and more tender and the swelling increased, as the evening went on. CT angiogram of the abdomen and pelvis showed a 4 x 4 by 1.6 cm thickness area of possible hematoma in the subcutaneous layer, the right of the umbilicus. Radiology also noted development 8 x 2.9 cm lower abdominal aortic aneurysm which is 3.9 cm in length and anastomosed with a bilateral graft. There was also question of possible gastritis and diffuse thickening of the sigmoid colon secondary to chronic changes of diverticulitis. Again, patient denied any wendi sea, vomiting or diarrhea. White blood cell count was within normal. Hemoglobin and hematocrit 13.9 and 42. Labs were otherwise unremarkable. Blood pressure was low at 83/68 with pulse of 77. She was satting 94% on room air. Dr. Bojorquez, general surgery, was consulted by ER and will evaluate patient in the morning. PAST MEDICAL HISTORY: 1. Peripheral arterial disease. 2. Ruptured appendix with pelvic abscess in February of this year. 3. Asthma. 4. Seasonal allergies. 5. Vitamin B12 deficiency. 6. Depression. 7. Peripheral vascular disease. 8. Congestive heart failure, diastolic with preserved ejection fraction PAST SURGICAL HISTORY: 1. Bypass grafts to the leg. 2. Aortic endarterectomy. 3. Right common iliac endarterectomy. 4. Left common iliac endarterectomy. 5. Aortobiiliac bypass graft. 6. Lysis of abdominal adhesions. 7. Hernia repair 7 with most recent repair with mesh. 8. Colonoscopy. 9. EGD with dilatation SOCIAL HISTORY: Patient quit smoking in 2018. She admits to drinking 3-4 beers almost daily. She also admits to smoking marijuana 2-3 times daily to help with pain. She lives with her . FAMILY HISTORY: Patient's mother at age 51 with severe atherosclerosis. Her father has coronary artery disease and is 77 years old. REVIEW OF SYSTEMS: Complete 10 point review systems is negative except as noted above PHYSICAL EXAMINATION: Patient is seen in the ER, lying on the stretcher. She is alert and oriented x 3. HEENT is WNL. Neck is supple. Lungs coarse with expiratory wheeze which does not clear with cough. Heart regular rate and rhythm without murmur. Abdomen with ecchymosis to the right at the umbilicus with significant swelling. Tender to touch. Bowel sounds positive. Extremities with good ROM and strength equal bilaterally. She does have scattered bruising on bilateral forearms and lower extremities. No lower extremity edema. Pedal pulses are positive. Skin is warm and dry with no other obvious rash or lesion. Neuro: grossly intact. Psych: She is very pleasant and cooperative. ASSESSMENT AND PLAN: 1. Abdominal wall hematoma. Will hold aspirin and Plavix for now. General surgery to evaluate in the morning. Continue to monitor hemoglobin and hematocrit closely. 2. Asthma. Patient uses her albuterol inhaler frequently at home. Denies any history of COPD. Will continue the patient on routine nebulizers and encourage good pulmonary toilet. Oxygen available as needed. 3. Congestive heart failure, diastolic, with no acute exacerbation. Monitor closely to avoid fluid overload. 4. Peripheral arterial disease/peripheral vascular disease. Aspirin and Plavix on hold. Will restart as soon as possible. Continue statin. 5. Chronic pain. Continue patient on [place] for now. 6. DVT prophylaxis. Hold anticoagulants. KIM cummings. CODE STATUS: CODE STATUS was discussed with the patient. He desires to be considered full code. She states her would act as her surrogate if she were unable to make her decisions. Patient is considered high risk of further deterioration including extension of abdominal wall hematoma or Hypovolemic shock. She is admitted for close observ ation and further evaluation and expected to remain at least one midnight. Vital Signs Vital Signs Date Time Temp Pulse Resp B/P (MAP) Pulse Ox O2 Delivery O2 Flow Rate FiO2 08/24/20 03:00 72 16 105/57 (73) 92 Room Air 08/23/20 21:43 99.1 Laboratory Data Labs 24H Laboratory Tests 2 08/23/20 22:20: Immature Granulocyte % (Auto) 0.1, Neutrophils (%) (Auto) 61.9, Lymphocytes (%) (Auto) 30.9, Monocytes (%) (Auto) 5.2, Eosinophils (%) (Auto) 1.2, Basophils (%) (Auto) 0.7, Neutrophils # (Auto) 4.6, Lymphocytes # (Auto) 2.3, Monocytes # (Auto) 0.4, Eosinophils # (Auto) 0.1, Basophils # (Auto) 0.1, Nucleated Red Blood Cells % (auto) 0.0, Total Bilirubin 0.3, Direct Bilirubin 0.1, Aspartate Amino Transf (AST/SGOT) 26, Alanine Aminotransferase (ALT/SGPT) 25, Alkaline Phosphatase 72, Total Protein 7.6, Albumin 3.9, Albumin/Globulin Ratio 1.1L, Lipase 189 08/23/20 22:30: POC Glucose (Misc Panel) 72, POC Sodium (Misc Panel) 142, POC Potassium (Misc Panel) 3.6, POC Chloride (Misc Panel) 103, POC Total CO2 (Misc Panel) 22.0L, POC Blood Urea Nitrogen (Misc Panel 3L, POC Ionized Calcium (Misc Panel) 4.6, POC Creatinine (Misc Panel) 0.7, POC Hematocrit (Misc Panel) 43.0 08/24/20 01:40: CBC/BMP Laboratory Tests 08/23/20 22:20 Home Medications Scheduled Aspirin (Aspirin EC) 81 Mg Tab, 81 MG PO DAILY Clopidogrel Bisulfate (Plavix) 75 Mg Tab, 75 MG PO DAILY Cyanocobalamin (Vitamin B-12) (Vitamin B-12) 500 Mcg Tablet, 1,000 MCG PO DAILY Docusate Sodium (Colace) 100 Mg Capsule, 100 MG PO DAILY Levofloxacin (Levofloxacin) 750 Mg Tablet, 750 MG PO DAILY@1800 Metronidazole (Flagyl) 500 Mg Tablet, 500 MG PO Q8H Pantoprazole Sodium (Protonix) 40 Mg Tablet.dr, 40 MG PO DAILY Sertraline HCl (Sertraline HCl) 100 Mg Tablet, 100 MG PO DAILY Simvastatin (Simvastatin) 40 Mg Tablet, 40 MG PO DAILY Scheduled PRN Acetaminophen (Acetaminophen) 500 Mg Tablet, 1,000 MG PO Q6H PRN for PAIN Albuterol Sulfate (Proair Hfa) 8.5 Gm Hfa.aer.ad, 2 PUFF INH QID PRN for SOB/WHEEZING Albuterol Sulfate (Ventolin Hfa) 18 Gm Hfa.aer.ad, 2 PUFF INH Q4-6HP PRN for wheezing Epinephrine (Epipen 2-Wu) 0.3 Mg/0.3 Ml Auto.injct, 0.3 MG IM ONCE PRN for ALLERGIC REACTION Oxycodone HCl/Acetaminophen (Oxycodone-Acetaminophen 5-325) 1 Each Tablet, 1 TAB PO QIDP PRN for pain Allergies Coded Allergies: No Known Allergies (Unverified , 06/26/17) A-FIB/CHADSVASC A-FIB History Current/History of A-Fib/PAF?: No GERMÁN NG Aug 24, 2020 03:35
[2020-08-24] MEDS ORDERED: BACITAB PO (03:56)
[2020-08-24] MEDS ORDERED: ZOLO100T PO (03:56)
[2020-08-24 04:45] VITALS: BP 95/60
[2020-08-24 06:11] LABS: HEMATOCRIT 40.1 % (36.0-47.0); HEMOGLOBIN 12.9 g/dl (12.0-15.5); MEAN CORPUSCULAR HEMOGLOBIN 31.8 pg (27.0-33.0); MEAN CORPUSCULAR HGB CONC 32.2 g/dl (32.0-36.5); MEAN CORPUSCULAR VOLUME 98.8 fl (80.0-96.0); PLATELET COUNT, AUTOMATED 252 10^3/uL (150-450); RED BLOOD COUNT 4.06 10^6/uL (4.00-5.40); WHITE BLOOD COUNT 5.5 10^3/uL (4.0-10.0)
[2020-08-24 06:31] LABS: INR 0.93; PROTHROMBIN TIME 12.7 SECONDS (12.5-14.3)
[2020-08-24 06:32] LABS: PARTIAL THROMBOPLASTIN TIME 27.4 SECONDS (24.2-38.5)
[2020-08-24 06:34] LABS: BLOOD UREA NITROGEN 5 MG/DL (7-18); CALCIUM LEVEL 8.2 MG/DL (8.5-10.1); CARBON DIOXIDE LEVEL 29 MEQ/L (21-32); CHLORIDE LEVEL 109 MEQ/L (98-107); CREATININE FOR GFR 0.52 MG/DL (0.55-1.30); GLOMERULAR FILTRATION RATE > 60.0 (>51); GLUCOSE, FASTING 78 MG/DL (70-100); MAGNESIUM LEVEL 2.3 MG/DL (1.8-2.4); POTASSIUM SERUM 3.9 MEQ/L (3.5-5.1); SODIUM LEVEL 140 MEQ/L (136-145)
[2020-08-24] MEDS ORDERED: IPRATROPIUM 0.5MG/ALBUTEROL 2.5MG INH SOL UD 3ML (DUONEB) NEB SCH (08:00)
[2020-08-24] MEDS ORDERED: traMADol 50 MG TAB PO PRN (08:30)
[2020-08-24] MEDS ORDERED: TRAM50TA2 PO (09:20)
[2020-08-24 10:00] VITALS: BP 91/57
[2020-08-24 11:56] LABS: HEMATOCRIT 40.3 % (36.0-47.0); HEMOGLOBIN 12.9 g/dl (12.0-15.5)
--- NOTE | 2020-08-24 12:52 | CR.PDOC ---
General Date of Consultation: Aug 24, [address] Bojorquez HISTORY OF PRESENT ILLNESS: The patient is a 50-year-old female who presented to the emergency department with pain and swelling right abdomen. Imaging in dicated a 4 x 4 x 1.6 cm area of possible hematoma in the subcutaneous layer to the right of the umbilicus. General surgery was consulted. ALLERGIES: Please see below. HOME MEDICATIONS: Please see below. PAST MEDICAL HISTORY: Peripheral arterial disease. Ruptured appendix with pelvic abscess in February 2020 Asthma. Seasonal allergies. Vitamin B12 deficiency. Depression. Congestive heart failure, diastolic with preserved ejection fraction PAST SURGICAL HISTORY: Aortobiiliac bypass graft Lysis of abdominal adhesions. Hernia repair with mesh. Colonoscopy. EGD with dilatation FAMILY HISTORY: CAD SOCIAL HISTORY: Tobacco use, quit 2017. 3-4 beers per day. Marijuana 2-3 times per day. REVIEW OF SYSTEMS: As noted in HPI otherwise 10 point review of systems unremarkable. PHYSICAL EXAMINATION: VITAL SIGNS: Please see below. GENERAL APPEARANCE: No acute distress, sitting up in bed HEENT: MMM RESPIRATORY: CTA CARDIOVASCULAR: S1-S2 regular rate rhythm ABDOMEN: Area of swelling and ecchymosis is noted to the right of the umbilicus, mild tenderness with palpation. EXTREMITIES: No edema LABORATORY DATA: Please see below. ASSESSMENT/PLAN: Abdominal hematoma. The patient is reviewed and examined as per Dr. Bojorquez this morning. Hemoglobin on admission 13.9 and this morning 12.9. Recheck at 1130 today stable at 12.9. Would recommend to continue with conservative management. Can continue Tylenol as needed or Ultram as needed for pain control. Would recommend to hold aspirin 81 mg for 3 days, hold Plavix 75 mg for 7 days. Discussed recommendations with hospitalist, Dr. Gann. From surgical standpoint the patient would be stable for discharge when medically cleared. Vital Signs/I&O Vital Signs Date Time Temp Pulse Resp B/P (MAP) Pulse Ox O2 Delivery O2 Flow Rate FiO2 08/24/20 10:00 98.7 83 18 91/57 (68) 96 Room Air I&O- Last 24 Hours up to 6 AM 08/24/20 06:00 Intake Total 120 ml Output Total 0 ml Balance 120 ml Laboratory Data Labs 24H Laboratory Tests 2 08/23/20 22:20: Immature Granulocyte % (Auto) 0.1, Neutrophils (%) (Auto) 61.9, Lymphocytes (%) (Auto) 30.9, Monocytes (%) (Auto) 5.2, Eosinophils (%) (Auto) 1.2, Basophils (%) (Auto) 0.7, Neutrophils # (Auto) 4.6, Lymphocytes # (Auto) 2.3, Monocytes # (Auto) 0.4, Eosinophils # (Auto) 0.1, Basophils # (Auto) 0.1, Nucleated Red Blood Cells % (auto) 0.0, Total Bilirubin 0.3, Direct Bilirubin 0.1, Aspartate Amino Transf (AST/SGOT) 26, Alanine Aminotransferase (ALT/SGPT) 25, Alkaline Phosphatase 72, Total Protein 7.6, Albumin 3.9, Albumin/Globulin Ratio 1.1L, Lipase 189 08/23/20 22:30: POC Glucose (Misc Panel) 72, POC Sodium (Misc Panel) 142, POC Potassium (Misc Panel) 3.6, POC Chloride (Misc Panel) 103, POC Total CO2 (Misc Panel) 22.0L, POC Blood Urea Nitrogen (Misc Panel 3L, POC Ionized Calcium (Misc Panel) 4.6, POC Creatinine (Misc Panel) 0.7, POC Hematocrit (Misc Panel) 43.0 08/24/20 01:40: Coronavirus (COVID-19)(PCR) NEGATIVE, Influenza Type A (RT-PCR) NEGATIVE, Influenza Type B (RT-PCR) NEGATIVE, Respiratory Syncytial Virus (PCR) NEGATIVE 08/24/20 05:50: Nucleated Red Blood Cells % (auto) 0.0, Prothrombin Time 12.7, Prothromb Time International Ratio 0.93, Activated Partial Thromboplast Time 27.4, Anion Gap 2L, Glomerular Filtration Rate > 60.0, Calcium Level 8.2L, Magnesium Level 2.3 CBC/BMP Laboratory Tests 08/23/20 22:20 08/24/20 05:50 08/24/20 11:39 Allergies Coded Allergies: No Known Allergies (Unverified , 06/26/17) Home Medications Scheduled Cyanocobalamin (Vitamin B-12) (Vitamin B-12) 500 Mcg Tablet, 1,000 MCG PO DAILY, (Reported) Docusate Sodium (Colace) 100 Mg Capsule, 100 MG PO DAILY, (Reported) LMylesacidoph/LMylesbultony/B.bif/S.therm (Bacid Caplet) 1 Each Tablet, 1 TAB PO QPM, (Reported) TAKES IN THE AFTERNOON Pantoprazole Sodium (Protonix) 40 Mg Tablet.dr, 40 MG PO DAILY, (Reported) Sertraline Hcl (Zoloft) 100 Mg Tablet, 100 MG PO DAILY, (Reported) Simvastatin (Simvastatin) 40 Mg Tablet, 40 MG PO DAILY, (Reported) Scheduled PRN Albuterol Sulfate (Proair Hfa) 8.5 Gm Hfa.aer.ad, 2 PUFF INH Q4H PRN for SOB/WHEEZING, (Reported) Epinephrine (Epipen 2-Wu) 0.3 Mg/0.3 Ml Auto.injct, 0.3 MG IM ASDIRECTED PRN for ANAPHYLAXIS, (Reported) Tramadol HCl (Tramadol HCl) 50 Mg Tablet, 50 MG PO Q6HP PRN for MODERATE PAIN (PS 5-7) for 3 Days, #12 Madiha Pedroza Aug 24, 2020 12:40
--- NOTE | 2020-08-24 13:22 | DS.PDOC ---
Discharge Summary General Date of Admission Aug 23, 2020 at 21:41 Date of Discharge 08/24/2020 Discharge Summary PROCEDURES PERFORMED DURING STAY: [None]. ADMITTING DIAGNOSES / DISCHARGE DIAGNOSES: Abdominal wall hematoma Chronic Asthma Chronic Diastolic CHF Peripheral arterial disease Chronic pain DVT prophylaxis COMPLICATIONS/CHIEF COMPLAINT: Abdominal pain HISTORY OF PRESENT ILLNESS: Patient is a 50-year-old female with a PMHx of Peripheral vascular disease, Diastolic CHF, Asthma, Seasonal allergies, Depression, who presented to the emergency room because of abdominal pain. Patient reported that she was working in the garden recently may have twisted her abdomen in the usual way had reported some pain then. However, this had progressed later to a bump patient to the ER for further evaluation. CT scan completed revealed evidence of a hematoma. General surgery was called on consultation. Patient was seen and examined at the bedside currently reports that she feels relatively well. Reports abdominal pain is doing better. Denies any nausea, vomiting, chest pain, diarrhea, or urinary discomfort. Denies any blood in her stool. Patient has been ambulating without any difficulty. HOSPITAL COURSE: Abdominal wall hematoma - Patient has reported some abdominal wall tenderness that is better controlled with the pain regimen that she is on - Physical reveals some tenderness along right anterior abdominal surface - Patient is hemodynamically stable - H&H is stable - General surgery was called on consultation; appreciate their input - Will hold ASA and Plavix; ASA can be resumed in 3 days and Plavix can be resumed in 7 days Chronic Asthma - No evidence of exacerbation - Continue with inhaled therapy as ordered Chronic Diastolic CHF - Patient appears euvolemic - Not on any diuretics Peripheral arterial disease - Patient has had an abdominal aortic aneurysm repair - Have outpatient follow-up with vascular surgery - Aspirin, Plavix on hold; for resumption (see above) Chronic pain - Will start Tramadol DVT prophylaxis - c/w TEDs / Sequentials DISCHARGE MEDICATIONS: Please see below. ALLERGIES: Please see below. PHYSICAL EXAMINATION ON DISCHARGE: Vitals (See below) General: Lying in bed, no acute distress, comfortable, AAOx3 HEENT: NC, AT CVS: RRR, +S1S2 Lungs: Fair air entry b/l, -w/r/r Abdomen: Soft, ND, tenderness at anterior right-sided abdominal wall Extremities: - Edema, - Calf tenderness LABORATORY DATA: Please see below. IMAGING: CTA abdomen 08/23: 1. 4 cm x 4 cm x 1.6 cm in thickness area of possible hematoma in the subcutaneous layer to the right of the umbilicus. Area of infection or mass lesion would be other considerations. There is soft tissue swelling and skin thickening. The skin thickening may be the result of edema or cellulitis. 2. Since 2018 there has been development of a 2.8 cm x 2.9 cm lower abdominal aortic aneurysm. This is 3.9 cm in length and anastomosed with a bi lumen graft. 3. Thickening of the gastric wall may be gastritis however I could not exclude infiltrative process. Diffuse thickening of the sigmoid colon may be hypertrophy from chronic changes of diverticulitis. Acute colitis possible as well. Recommend correlation with colonoscopy or barium enema. 4. Mild ileus. ACTIVITY: [As tolerated]. DISCHARGE PLAN: Follow-up with primary care provider, general surgery and vascular surgery with in the next 7 days Remain compliant with treatment plan and medications Return to the ER if you experience any problems DISPOSITION: Home DISCHARGE CONDITION: [Stable]. TIME SPENT ON DISCHARGE: 25 minutes. Vital Signs/I&Os Vital Signs Date Time Temp Pulse Resp B/P (MAP) Pulse Ox O2 Delivery O2 Flow Rate FiO2 08/24/20 10:00 98.7 83 18 91/57 (68) 96 Room Air I&O- Last 24 Hours up to 6 AM 08/24/20 06:00 Intake Total 120 ml Output Total 0 ml Balance 120 ml Laboratory Data Labs 24H Laboratory Tests 2 08/23/20 22:20: Immature Granulocyte % (Auto) 0.1, Neutrophils (%) (Auto) 61.9, Lymphocytes (%) (Auto) 30.9, Monocytes (%) (Auto) 5.2, Eosinophils (%) (Auto) 1.2, Basophils (%) (Auto) 0.7, Neutrophils # (Auto) 4.6, Lymphocytes # (Auto) 2.3, Monocytes # (Auto) 0.4, Eosinophils # (Auto) 0.1, Basophils # (Auto) 0.1, Nucleated Red Blood Cells % (auto) 0.0, Total Bilirubin 0.3, Direct Bilirubin 0.1, Aspartate Amino Transf (AST/SGOT) 26, Alanine Aminotransferase (ALT/SGPT) 25, Alkaline Phosphatase 72, Total Protein 7.6, Albumin 3.9, Albumin/Globulin Ratio 1.1L, Lipase 189 08/23/20 22:30: POC Glucose (Misc Panel) 72, POC Sodium (Misc Panel) 142, POC Potassium (Misc Panel) 3.6, POC Chloride (Misc Panel) 103, POC Total CO2 (Misc Panel) 22.0L, POC Blood Urea Nitrogen (Misc Panel 3L, POC Ionized Calcium (Misc Panel) 4.6, POC Creatinine (Misc Panel) 0.7, POC Hematocrit (Misc Panel) 43.0 08/24/20 01:40: Coronavirus (COVID-19)(PCR) NEGATIVE, Influenza Type A (RT-PCR) NEGATIVE, Influenza Type B (RT-PCR) NEGATIVE, Respiratory Syncytial Virus (PCR) NEGATIVE 08/24/20 05:50: Nucleated Red Blood Cells % (auto) 0.0, Prothrombin Time 12.7, Prothromb Time International Ratio 0.93, Activated Partial Thromboplast Time 27.4, Anion Gap 2L, Glomerular Filtration Rate > 60.0, Calcium Level 8.2L, Magnesium Level 2.3 CBC/BMP Laboratory Tests 08/23/20 22:20 08/24/20 05:50 08/24/20 11:39 Discharge Medications Scheduled Cyanocobalamin (Vitamin B-12) (Vitamin B-12) 500 Mcg Tablet, 1,000 MCG PO DAILY, (Reported) Docusate Sodium (Colace) 100 Mg Capsule, 100 MG PO DAILY, (Reported) L.acidoph/L.bulg/B.bif/S.therm (Bacid Caplet) 1 Each Tablet, 1 TAB PO QPM, (Repo rted) TAKES IN THE AFTERNOON Pantoprazole Sodium (Protonix) 40 Mg Tablet.dr, 40 MG PO DAILY, (Reported) Sertraline Hcl (Zoloft) 100 Mg Tablet, 100 MG PO DAILY, (Reported) Simvastatin (Simvastatin) 40 Mg Tablet, 40 MG PO DAILY, (Reported) Scheduled PRN Albuterol Sulfate (Proair Hfa) 8.5 Gm Hfa.aer.ad, 2 PUFF INH Q4H PRN for SOB/WHEEZING, (Reported) Epinephrine (Epipen 2-Wu) 0.3 Mg/0.3 Ml Auto.injct, 0.3 MG IM ASDIRECTED PRN for ANAPHYLAXIS, (Reported) Tramadol HCl (Tramadol HCl) 50 Mg Tablet, 50 MG PO Q6HP PRN for MODERATE PAIN (PS 5-7) Allergies Coded Allergies: No Known Allergies (Unverified , 06/26/17) BALBINA AHMADI MD Aug 24, 2020 13:22
== END 2020-08-24 13:53 | disposition home or self-care (01) ==
LOC: M ED 21:40 → M ED INP 21:41 → ENRESERV 08-24 03:24 → M MSPAV 08-24 04:42
PROVIDERS: ADMIT Internal Medicine; ATTEND Internal Medicine
DX: S30.1XXA Contusion of abdominal wall, initial encounter (principal); X58.XXXA Exposure to other specified factors, initial encounter; Y92.89 Other specified places as the place of occurrence of the external cause; J45.909 Unspecified asthma, uncomplicated; I50.32 Chronic diastolic (congestive) heart failure; I73.9 Peripheral vascular disease, unspecified; F32.9 Major depressive disorder, single episode, unspecified; E53.8 Deficiency of other specified B group vitamins; Z87.891 Personal history of nicotine dependence; Z79.899 Other long term (current) drug therapy; Z79.82 Long term (current) use of aspirin; Z79.02 Long term (current) use of antithrombotics/antiplatelets
CPT/HCPCS: 36415; 74174; 80047; 80048; 80076; 83690; 83735; 85014; 85018; 85025; 85027; 85610; 85730; 86850; 86900; 86901; 87631; 93041; 94640; 96374; 96375; 99285; J2270; J2405; Q9967

== ENCOUNTER 2020-11-21 08:09 | Inpatient (IN) | payer BC ==
[~2020-11-21] VITALS: Ht 152.4 cm; Wt 56.5 kg
[~2020-11-21 08:09] MED LIST changes: +BACITAB PO; +TRAM50TA2 PO; +ZOLO100T PO
[2020-11-21] MEDS ORDERED: ZOLO100T (08:19)
[2020-11-21] MEDS ORDERED: CLOP75TA2 PO (08:19)
[2020-11-21 09:37] LABS: BASO % 0.2 % (0.0-1.0); EOS % 0.2 % (0.0-3.0); HEMATOCRIT 38.9 % (36.0-47.0); HEMOGLOBIN 13.1 g/dl (12.0-15.5); LYMPH # 0.7 10^3/uL (1.5-5.0); LYMPH % 5.8 % (24.0-44.0); MEAN CORPUSCULAR HGB CONC 33.7 g/dl (32.0-36.5); MEAN CORPUSCULAR VOLUME 95.1 fl (80.0-96.0); MONO # 0.6 10^3/uL (0.0-0.8); MONO % 4.9 % (2.0-8.0); NEUTROPHILS # 11.2 10^3/uL (1.5-8.5); NEUTROPHILS % 88.2 % (36.0-66.0); PLATELET COUNT, AUTOMATED 283 10^3/uL (150-450); RED BLOOD COUNT 4.09 10^6/uL (4.00-5.40); WHITE BLOOD COUNT 12.7 10^3/uL (4.0-10.0)
[2020-11-21 10:16] LABS: BLOOD UREA NITROGEN 9 MG/DL (7-18); CALCIUM LEVEL 9.3 MG/DL (8.5-10.1); CARBON DIOXIDE LEVEL 27 MEQ/L (21-32); CHLORIDE LEVEL 101 MEQ/L (98-107); CREATININE FOR GFR 0.52 MG/DL (0.55-1.30); GLOMERULAR FILTRATION RATE > 60.0 (>51); GLUCOSE, FASTING 104 MG/DL (70-100); POTASSIUM SERUM 3.4 MEQ/L (3.5-5.1); SODIUM LEVEL 134 MEQ/L (136-145)
[2020-11-21] MEDS ORDERED: NS 1,000 ML IV ONE (10:25)
[2020-11-21 11:13] LABS: CK-MB VALUE MASS < 1.0 NG/ML (<3.6); CPK CREATINE PHOSPHOKINASE 41 U/L (26-192); FERRITIN 232 NG/ML (8-252); LDH LACTATE DEHYDROGENASE 150 U/L (84-246); MB/CK RELATIVE INDEX 2.44 (< OR =4); TROPONIN I < 0.02 NG/ML (< 0.10)
--- NOTE | 2020-11-21 11:13 | REP ---
INDICATION: Coronavirus workup. COMPARISON: Comparison chest x-ray 09 March 2020. TECHNIQUE: Portable upright AP chest radiograph. FINDINGS: There are some increased interstitial markings in the right lung base peripherally consistent with subtle infiltrate. There is an old healed rib fracture on the left. No other infiltrate is seen. Heart size is borderline unchanged. Pulmonary vasculature is slightly cephalized. There is no evidence of pleural effusion. EKG electrodes are seen. IMPRESSION: Subtle increased interstitial markings right base peripherally question early infiltrate. Borderline cardiomegaly. <Electronically signed by Nimesh Kramer > 11/21/20 [id number]
[2020-11-21] MEDS ORDERED: ACETAMINOPHEN 325 MG TAB PO ONE (11:35)
[2020-11-21] MEDS ORDERED: ISOVUE-370 76% 100ML VIAL As Ordered ONE (12:51)
--- NOTE | 2020-11-21 13:24 | REP ---
INDICATION: abd pain, hx diverticulosis r/o diverticulitis. COMPARISON: Comparison exams include May 03, 2020 and March 09, 2020. TECHNIQUE: Helical scanning was acquired and 4 mm axial images are re-formatted. Coronal and sagittal MPR images were generated and reviewed. The contrast enhancement dose is 100 mL of intravenous Isovue 370. FINDINGS: Preliminary digital pool attendant radiograph shows air and stool in a nondistended colon and some air-filled nondilated small bowel loops. The lung bases are clear on axial CT images. The liver and the spleen are normal in size homogeneous in texture. No abnormality is noted in the gallbladder or the pancreas. Normal adrenal glands are seen. The kidneys enhance symmetrically and are morphologically intact. The previously noted distal abdominal aortic aneurysm is again seen measuring 3.0 cm in right to left dimension by 2.8 cm anteroposterior unchanged. There is no evidence of free intraperitoneal air. There is a suprapubic ventral hernia trans Waters abdominal fat again noted. Today's CT images demonstrate evidence of recurrent complex multifocal pelvic abscesses. There is a small collection in the cul-de-sac just to the left of midline. There is an irregular collection with enhancing margins and containing some air in the central pelvis surrounded by bowel loops. This measures approximately 7.0 x 4.4 x 5.1 cm. It is not accessible to percutaneous drainage. There is a questionable air and fluid collection anterior to this. These are surrounded by adjacent inflamed bowel loops demonstrating mural thickening. There is an elongate segment of moderate to marked mural thickening in the sigmoid and rectosigmoid colon segment. There is some fluid content in the right colon. No talita obstruction is seen. IMPRESSION: Complex extensive inflammatory change in the pelvis with multiple irregularly-shaped interloop abscesses as described above. These are not accessible to percutaneous drainage. There is moderate mural thickening in the sigmoid colon and in some adjacent loops of small bowel and cecum. No free air is seen. No evidence of obstruction. Suprapubic ventral hernia transmits abdominal fat. <Electronically signed by Nimesh Kramer > 11/21/20 [id number]
[2020-11-21] MEDS ORDERED: PIPERACILLIN/TAZOBACTAM SOD 3.375 GM in D5W MINI-BAG PLUS 50 ML IV ONE (14:35)
[2020-11-21] MEDS ORDERED: ACETAMINOPHEN TAB 650MG DOSE (2X325MG) PO PRN (15:45)
[2020-11-21] MEDS: NS 1,000 ML IV SCH (15:45)
[2020-11-21] MEDS ORDERED: POTASSIUM CHLORIDE 10MEQ SR TABLET PO ONE (15:55)
[2020-11-21] MEDS ORDERED: IPRATROPIUM 0.5MG/ALBUTEROL 2.5MG INH SOL UD 3ML (DUONEB) NEB PRN (16:10)
--- NOTE | 2020-11-21 16:19 | HPEPDOC ---
[facility] Medical History & Physical Date of Admission Nov 21, 2020 Date of Service: Nov 21, 2020 Primary Care Physician: Samantha Neumann DO Attending Physician: RODY LANDEROS DO History and Physical CHIEF COMPLAINT: Abdominal pain x3 days HISTORY OF PRESENT ILLNESS: Patient presents today after 2-3 days of fever, abdominal pain, and episode of diarrhea. She was feeling poorly last night, but decided to wait for the evening and see if she was any better in the morning. She was not, therefore she decided to present to the emergency department. Upon arrival here it was found that she was Covid positive, but her symptoms did not indicate Covid pneumonia. An abdominal CT scan revealed multiple abscesses, general surgery was called, and there is a likelihood that she may need to be taken for surgery. At this point though, will attempt conservative management with fluids and IV antibiotics. She has a very extensive medical history, as well as surgical history, particularly abdominal surgeries as noted below. 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 Tobacco use with a [id number] history, quit 2018 Alcohol abuse Chronic marijuana use Anemia Vitamin B12 deficiency Neuropathy Depression Infrarenal abdominal aortic aneurysm Peripheral arterial disease Ruptured appendix with pelvic abscess in February 2020 Asthma Seasonal allergies Peripheral vascular disease Diastolic congestive heart failure with preserved ejection fraction PAST SURGICAL HISTORY: 1985, 1988 Tubal ligation 1992 Aortic endarterectomy Right common iliac artery endarterectomy Left common iliac artery endarterectomy Aortobiiliac bypass graft Multiple hernia repairs with the most recent being in March 2019 with mesh Arteriogram aortic arch, Mynx closure right common femoral artery SOCIAL HISTORY: Quit smoking in 2018, however has a [id number] history prior to that. Admits to drinking 3-4 beers daily, also smokes marijuana 2-3 times daily to help with pain. Lives with her . FAMILY HISTORY: Mother at age 51 with severe atherosclerosis Father currently alive with coronary artery disease is in his late 70s REVIEW OF SYSTEMS: Constitutional: Patient admits to some low-grade fevers, chills, denies night sweats, recent weight gain/loss. Cardiovascular: Patient denies chest discomfort/pain, palpitations, exertional dyspnea, orthopnea, edema of the extremities, claudication. Respiratory: Patient denies dyspnea, wheezing, cough. Gastrointestinal: Patient admits to abdominal pain in the mid lower belly, she does have some nausea without vomiting, she did have an episode of diarrhea last night, but had a formed stool this morning. Denies constipation, melena, hematochezia, hematemesis, jaundice. PHYSICAL EXAMINATION: General: Sitting upright on the edge of the bed. She does not appear to be in acute distress at this time. HEENT: Head normocephalic atraumatic, conjunctiva are pink, sclera are nonicteric. Hearing is grossly intact to conversation. Respiratory: Faint expiratory rhonchi noted throughout Cardiovascular: Regular rate and rhythm, with no rubs, gallops, she does have a 1/6 systolic ejection murmur Abdomen: She is tender in the region approximately longterm between the umbilicus and pubic symphysis, and does exhibit some guarding with light palpation of this area. Otherwise the remainder of her belly is nontender. Bowel sounds are heard throughout. Large midline scar noted. Extremities: 2+ pulses in the radial and dorsalis pedis. ELECTROCARDIOGRAM: Sinus rhythm with incomplete right bundle branch block, no significant change when compared to 03/09/2020 IMAGING: CT of the abdomen pelvis with IV contrast only IMPRESSION: Complex extensive inflammatory change in the pelvis with multiple irregularly- shaped interloop abscesses as described above. These are not accessible to percutaneous drainage. There is moderate mural thickening in the sigmoid colon and in some adjacent loops of small bowel and cecum. No free air is seen. No evidence of obstruction. Suprapubic ventral hernia transmits abdominal fat. ASSESSMENT/PLAN: Abdominal/pelvic abscesses Leukocytosis Elevated CRP Fever Tachypnea Sepsis -General surgery has been consulted and. Their input in the matter is greatly appreciated. -[facility] We will keep her n.p.o. at this time, IV fluids with normal saline (she already received 1 L bolus in the ER), empiric antibiotics with Zosyn, and see how she does conservatively through the night and repeat labs in the morning. Covid positive, without indication of Covid pneumonia at this time -Continue isolation precautions Atherosclerotic disease including peripheral arterial disease and peripheral vascular disease Elevated D-dimer, likely secondary to chronic atherosclerotic & embolic disease -Continue home dose of simvastatin -Hold home dose of aspirin and Plavix Hypokalemia -Supplementation ordered Depression -Continue home dose of sertraline GERD -Continue home dose of pantoprazole History of constipation -Continue home dose of Colace B12 deficiency -Continue home dose of B12 supplementation History of tobacco use with intermittent wheezing I do not see any documentation of lung disease, but she does use a rescue inhaler occasionally at home -We will provide her with as needed duo nebs while inpatient. DVT prophylaxis -Typically on aspirin and Plavix at home, however this will be held in case she needs to be taken for procedure -We will use heparin for DVT prophylaxis Vital Signs Vital Signs Date Time Temp Pulse Resp B/P (MAP) Pulse Ox O2 Delivery O2 Flow Rate FiO2 11/21/20 15:39 80 96 11/21/20 09:27 101.8 11/21/20 08:10 20 118/72 (87) Room Air Laboratory Data Labs 24H Laboratory Tests 2 11/21/20 09:12: Immature Granulocyte % (Auto) 0.7, Neutrophils (%) (Auto) 88.2H, Lymphocytes (%) (Auto) 5.8L, Monocytes (%) (Auto) 4.9, Eosinophils (%) (Auto) 0.2, Basophils (%) (Auto) 0.2, Neutrophils # (Auto) 11.2H, Lymphocytes # (Auto) 0.7L, Monocytes # (Auto) 0.6, Eosinophils # (Auto) 0.0, Basophils # (Auto) 0.0, Nucleated Red Blood Cells % (auto) 0.0, Anion Gap 6L, Glomerular Filtration Rate > 60.0, Calcium Level 9.3, Ferritin 232, Lactate Dehydrogenase 150, Total Creatine Kinase 41, Creatine Kinase MB < 1.0, Creatine Kinase MB Relative Index 2.44, Troponin I < 0.02, C-Reactive Protein, Quantitative 23.70H 11/21/20 10:37: D-Dimer, Quantitative > 4000H, Lactic Acid Level 0.8 CBC/BMP Laboratory Tests 11/21/20 09:12 Microbiology Microbiology 11/21/20 Blood Culture, Received Pending 11/21/20 Blood Culture, Received Pending 11/21/20 Respiratory Virus Panel (PCR) ([facility]) - Final, Complete SARS-CoV-2 (COVID 19) Home Medications Scheduled Clopidogrel Bisulfate (Clopidogrel) 75 Mg Tablet, 75 MG PO DAILY Cyanocobalamin (Vitamin B-12) (Vitamin B-12) 500 Mcg Tablet, 1,000 MCG PO DAILY Pantoprazole Sodium (Protonix) 40 Mg Tablet.dr, 40 MG PO DAILY Simvastatin (Simvastatin) 40 Mg Tablet, 40 MG PO DAILY Scheduled PRN Albuterol Sulfate (Proair Hfa) 8.5 Gm Hfa.aer.ad, 2 PUFF INH Q4H PRN for SOB/WHEEZING Docusate Sodium (Colace) 100 Mg Capsule, 100 MG PO DAILY PRN for CONSTIPATION Epinephrine (Epipen 2-Wu) 0.3 Mg/0.3 Ml Auto.injct, 0.3 MG IM ASDIRECTED PRN for ANAPHYLAXIS Allergies Coded Allergies: No Known Allergies (Unverified , 06/26/17) A-FIB/CHADSVASC A-FIB History Current/History of A-Fib/PAF?: No RODY LANDEROS DO Nov 21, 2020 16:19
[2020-11-21] MEDS ORDERED: HOME MED LIST COMPLETE! XX SCH (16:25)
[2020-11-21 17:00] VITALS: BP 89/50
[2020-11-21] MEDS ORDERED: MORPHINE 4 MG/ML 1ML VIAL/SYRINGE (J2270) IV PRN (20:20)
[2020-11-21] MEDS: PIPERACILLIN/TAZOBACTAM SOD 3.375 GM in D5W MINI-BAG PLUS 50 ML IV SCH (21:59)
[2020-11-21] MEDS: PERCOCET 5MG/325MG TAB PO PRN (21:59)
[2020-11-21 22:00] VITALS: BP 99/57
[2020-11-21] MEDS: HEPARIN SOD (PORCINE) 5000UNITS/ML 1ML VIAL/SYRINGE SC SCH (22:00)
[2020-11-22] MEDS: PIPERACILLIN/TAZOBACTAM SOD 3.375 GM in D5W MINI-BAG PLUS 50 ML IV SCH ×4 (04:11→22:11)
[2020-11-22] MEDS: PERCOCET 5MG/325MG TAB PO PRN ×4 (04:12→23:06)
--- NOTE | 2020-11-22 04:49 | ECGEPIP ---
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
[2020-11-22] MEDS: NS 1,000 ML IV SCH ×2 (05:37→20:32)
[2020-11-22] MEDS: HEPARIN SOD (PORCINE) 5000UNITS/ML 1ML VIAL/SYRINGE SC SCH ×3 (05:37→22:11)
[2020-11-22 06:15] VITALS: BP 105/59
[2020-11-22 06:27] LABS: HEMATOCRIT 33.9 % (36.0-47.0); HEMOGLOBIN 11.3 g/dl (12.0-15.5); MEAN CORPUSCULAR HEMOGLOBIN 31.9 pg (27.0-33.0); MEAN CORPUSCULAR HGB CONC 33.3 g/dl (32.0-36.5); MEAN CORPUSCULAR VOLUME 95.8 fl (80.0-96.0); PLATELET COUNT, AUTOMATED 271 10^3/uL (150-450); RED BLOOD COUNT 3.54 10^6/uL (4.00-5.40)
[2020-11-22 06:45] LABS: BLOOD UREA NITROGEN 7 MG/DL (7-18); CALCIUM LEVEL 8.4 MG/DL (8.5-10.1); CARBON DIOXIDE LEVEL 25 MEQ/L (21-32); CHLORIDE LEVEL 106 MEQ/L (98-107); CREATININE FOR GFR 0.45 MG/DL (0.55-1.30); GLOMERULAR FILTRATION RATE > 60.0 (>51); GLUCOSE, FASTING 95 MG/DL (70-100); POTASSIUM SERUM 3.5 MEQ/L (3.5-5.1); SODIUM LEVEL 137 MEQ/L (136-145)
[2020-11-22] MEDS ORDERED: FLUBLOK(EGG FREE)(QUAD)INFLUENZA VACC 0.5ML SYRINGE 18YRS & OLDER IM ONE (09:00)
--- NOTE | 2020-11-22 10:40 | CR ---
CONSULTATION DATE: 11/21/2020 CHIEF COMPLAINT: Recurrent pelvic abscess. BRIEF HISTORY OF PRESENT ILLNESS: The patient is a 50-year-old female who has a complex but it sounds as though when we look back at her history there was a potential perforated appendicitis with pelvic abscess that was eventually drained at some point in the past year and presented with some additional abdominal pain in April or May for an abdominal wall hematoma, although in retrospect, I feel that there may have been still some residual loculated fluid collection just above the rectum. She returns today after undergoing a colonoscopy 2 weeks ago. She did well for a week and then started having pelvic pressure, pain, and discomfort and presented with a recurrent pelvic abscess. The patient has been diagnosed with COVID at this point, is on Plavix and has significant comorbidities. Overall she does not feel terrible from the abdominal pain standpoint. She has had some diarrhea with constipation issues, consistent with a pelvic abscess. She has had 2-3 days of fevers. PAST MEDICAL HISTORY: The patient's past medical history is significant for: 1. History of aortoiliac occlusive disease. 2. History of right toe gangrene/ischemia with peripheral vascular disease. 3. History of tobacco abuse. 4. Alcohol abuse. 5. Chronic marijuana use. 6. Anemia. 7. Vitamin B deficiency. 8. Neuropathy. 9. Depression. 10. Infrarenal abdominal aortic aneurysm. 11. Ruptured appendix with pelvic abscess in February of 2020. 12. Asthma. 13. Seasonal allergies. 14. Diastolic congestive heart failure. PAST SURGICAL HISTORY: The patient's past surgical history is significant for: 1. . 2. Tubal ligation. 3. Aortic endarterectomy. 4. Right as well as left iliac endarterectomy. 5. Aortoiliac bypass graft. 6. Multiple hernia repairs with mesh. PHYSICAL EXAMINATION: GENERAL APPEARANCE: A 50-year-old female who looks older than stated age. HEENT: Unremarkable. NECK: Supple without adenopathy. LUNGS: Clear anteriorly with a few crackles appreciated, more so at the base. HEART: Regular. ABDOMEN: Softly distended, mostly in the lower abdomen. She does have a hernia present in the suprapubic area. No significant peritoneal signs are present, but she is definitely uncomfortable with palpation. EXTREMITIES: Warm and well perfused. IMPRESSION AND PLAN: The patient has a recurrent pelvic abscess and there is some thickening in the sigmoid colon, obviously the question is whether the thickening is secondary to the recurrent abscesses or whether this is recurrent diverticulitis with this abscess being from the diverticulum in this area. The colonoscopy revealed edema and did not reveal any evidence of Crohn's disease or ulcerative colitis which was also a concern of mine. Another issue is that this indeed may have been a perforated appendix in May and has had chronic sinus tract that has been present and with a colonoscopy in the colon under pressure, may have contributed to opening up the sinus tract further. Although at this point it is difficult to known that the etiology of this is. From the standpoint of operative intervention, since she has had drainage of this percutaneously, I wonder if this is something that may be amenable to percutaneous drainage once her Plavix has worn off. I would like to see how this looks in 24 or 48 hours, if she has increasing fevers, increasing white count, increasing pain, then we would consider a repeat CT earlier. However otherwise we will repeat it in 48 hours. At this point operative intervention would essentially find us with a significant mess in the pelvis with a great deal of granulation tissue, and I anticipate a very difficult time trying to find this sinus tract or even the tip of the appendix. And obviously the question is whether a colonic resection, either cecal or sigmoid is warranted, or both, given that we do not know that the etiology is and in this setting, she would need some sort of ostomy. Otherwise performing a diverting ileostomy might be another option for her with a clean out procedure and drainage of this area. Obviously this would not be the best situation given an infected pelvis as well as significant inflammation and would be a higher risk for a perioperative anastomotic breakdown or postoperative complications. Thus given that she is relatively stable clinically, and knowing that this abscess is most likely a recurrent abscess, suggest that it is more likely to be a localized abscess and less likely to be a perforation in this free abdomen. And maybe more amenable to percutaneous drainage in 24-48 hours. We will take a look at this again with a repeat CAT scan, as I stated earlier, and we will continue with IV antibiotics, n.p.o. for now. Also we will keep her off the Plavix, making either I.R. or operative intervention less significantly risky from a bleeding standpoint. I would like to have her off the Plavix for several more days before operative intervention, and we will see how she does clinically with non-operative treatment at this time.
[2020-11-22] MEDS ORDERED: VANCOMYCIN HCL 0 MG in IV FLUID PLACE HOLDER 1 EA IV SCH (13:10)
[2020-11-22] MEDS ORDERED: VANCOMYCIN HCL 1,000 MG, VIAL MATE ADAPTER 1 EACH in NS 250 ML IV ONE (14:00)
--- NOTE | 2020-11-22 14:01 | IPNPDOC ---
Subjective Date Seen The patient was seen on 11/22/20. Subjective Chief Complaint/HPI Patient was seen and examined at bedside this morning. She had reported having abdominal discomfort/pain that was generalized. However, she was asking for breakfast. She denied feeling nauseated or having any episodes of emesis. She is Covid positive but not requiring any oxygen supplementation. She denies chest pain, shortness of breath, problems with urination and bowel movements. Objective Physical Examination Other physical findings General: Lying in bed, no acute distress Head/Neck/Throat: Trachea midline, mucous membranes moist Eyes: Sclera anicteric, no erythema or discharge appreciated bilaterally Thorax: Normal respiratory effort on room air, lungs clear to auscultation bilat erally, no wheezes/rales/rhonchi Cardiovascular: Normal rate, regular rhythm, normal S1, S2; no S3, S4, rubs/gallops/murmurs Abdomen: Bowel sounds present, soft, nondistended, diffuse tenderness reported with light palpation, no rebound tenderness Genitourinary: No CVA tenderness, no Mario in place Musculoskeletal: Moving all extremities, no edema Skin: Warm, dry Neurologic: AAOx3, speech fluent and goal-directed, no focal deficits, grossly intact Assessment /Plan Assessment #Abdominal/pelvic abscesses -Spoke to surgical team and appreciate input. Plan for conservative management for now with antibiotics, and re-image on 11/23. No window for IR drainage. Co ntinue with Zosyn, will add vancomycin. #Sepsis -Management as above #COVID + -Not requiring 02 supplementation. Isolation precautions #PAD -Holding aspirin and clopidogrel for anticipation of possible surgery. -Continue statin therapy. #Electrolyte abnormality -Hypokalemia, repleted. #Depression -Continue sertraline #GERD -Continue pantoprazole #History of constipation -Continue Colace #B12 deficiency -Continue B12 supplementation #Tobacco use -Nicotine patch #DVT prophylaxis -Heparin subq. Plan/VTE VTE Prophylaxis Ordered?: Yes VS, I&O, 24H, Fishbone Vital Signs/I&O Vital Signs Date Time Temp Pulse Resp B/P (MAP) Pulse Ox O2 Delivery O2 Flow Rate FiO2 11/22/20 11:07 18 11/22/20 06:15 100.0 85 105/59 (74) 98 Room Air I&O- Last 24 Hours up to 6 AM 11/22/20 06:00 Intake Total 1125 ml Output Total 350 ml Balance 775 ml Laboratory Data 24H LABS Laboratory Tests 2 11/21/20 18:12: Erythrocyte Sedimentation Rate 70H 11/22/20 05:53: Nucleated Red Blood Cells % (auto) 0.0, Anion Gap 6L, Glomerular Filtration Rate > 60.0, Calcium Level 8.4L, C-Reactive Protein, Quantitative 24.70H CBC/BMP Laboratory Tests 11/22/20 05:53 Microbiology Microbiology 11/21/20 Blood Culture, Received Pending 11/21/20 Blood Culture, Received Pending 11/21/20 Blood Culture - Preliminary, Resulted No growth after 24 hours . All specim... 11/21/20 Blood Culture - Preliminary, Resulted No growth after 24 hours . All specim... 11/21/20 Respiratory Virus Panel (PCR) ([facility]) - Final, Complete SARS-CoV-2 (COVID 19) JAIRO BROOKS M.D. Nov 22, 2020 14:00
[2020-11-22 15:19] VITALS: BP 98/52
[2020-11-22] MEDS: VANCOMYCIN HCL 750 MG, VIAL MATE ADAPTER 1 EACH in NS 250 ML IV SCH (20:32)
[2020-11-22 22:00] VITALS: BP 136/61
[2020-11-23] MEDS: PIPERACILLIN/TAZOBACTAM SOD 3.375 GM in D5W MINI-BAG PLUS 50 ML IV SCH ×4 (03:02→22:01)
[2020-11-23] MEDS: VANCOMYCIN HCL 750 MG, VIAL MATE ADAPTER 1 EACH in NS 250 ML IV SCH (04:24)
[2020-11-23] MEDS: PERCOCET 5MG/325MG TAB PO PRN ×4 (05:10→23:08)
[2020-11-23] MEDS: HEPARIN SOD (PORCINE) 5000UNITS/ML 1ML VIAL/SYRINGE SC SCH ×3 (05:11→22:01)
[2020-11-23 06:06] VITALS: BP 95/54
[2020-11-23 06:35] LABS: HEMATOCRIT 31.1 % (36.0-47.0); HEMOGLOBIN 10.2 g/dl (12.0-15.5); MEAN CORPUSCULAR HEMOGLOBIN 31.7 pg (27.0-33.0); MEAN CORPUSCULAR HGB CONC 32.8 g/dl (32.0-36.5); MEAN CORPUSCULAR VOLUME 96.6 fl (80.0-96.0); PLATELET COUNT, AUTOMATED 272 10^3/uL (150-450); RED BLOOD COUNT 3.22 10^6/uL (4.00-5.40); WHITE BLOOD COUNT 8.2 10^3/uL (4.0-10.0)
[2020-11-23 07:13] LABS: BLOOD UREA NITROGEN 4 MG/DL (7-18); CALCIUM LEVEL 8.5 MG/DL (8.5-10.1); CARBON DIOXIDE LEVEL 28 MEQ/L (21-32); CHLORIDE LEVEL 106 MEQ/L (98-107); CREATININE FOR GFR 0.44 MG/DL (0.55-1.30); GLOMERULAR FILTRATION RATE > 60.0 (>51); GLUCOSE, FASTING 108 MG/DL (70-100); MAGNESIUM LEVEL 1.6 MG/DL (1.8-2.4); PHOSPHORUS LEVEL 2.1 MG/DL (2.5-4.9); POTASSIUM SERUM 2.9 MEQ/L (3.5-5.1); SODIUM LEVEL 138 MEQ/L (136-145)
[2020-11-23] MEDS: NS 1,000 ML IV SCH ×2 (07:51→17:13)
[2020-11-23] MEDS: GASTROGRAFIN SOLUTION 30ML PO SCH ×2 (07:51→08:44)
[2020-11-23] MEDS ORDERED: MAGNESIUM OXIDE 400MG TAB (MAG-OX) PO ONE (08:30)
[2020-11-23] MEDS ORDERED: POTASSIUM CHLORIDE 10MEQ SR TABLET PO ONE ×2 (08:30→09:30)
[2020-11-23] MEDS ORDERED: K-PHOS ORIGINAL (POT.ACID PHOSPHATE) 500MG TAB PO ONE (10:00)
[2020-11-23] MEDS ORDERED: ISOVUE-370 76% 100ML VIAL As Ordered ONE (10:02)
[2020-11-23] MEDS: VANCOMYCIN HCL 1,000 MG, VIAL MATE ADAPTER 1 EACH in NS 250 ML IV SCH ×2 (12:07→20:09)
--- NOTE | 2020-11-23 12:21 | REP ---
INDICATION: f/u on pelvic abscess. with iv and po contrast. COMPARISON: Comparison is made with recent prior study showing pelvic abscess cavities. November 21, 2020. TECHNIQUE: Helical scanning is acquired and 3 mm axial images re-formatted. Coronal and sagittal MPR images are generated. The CT contrast enhancement dose is 100 mL of intravenous Isovue 370. Oral contrast was also administered. FINDINGS: Preliminary digital prosthetics lab technician radiograph demonstrates mild gaseous distention of the transverse and splenic flexure are section of the colon. The lung bases remain clear. Liver and spleen remain unremarkable. The gallbladder is distended. This is unchanged from the 11/21/2020 study. No biliary ductal dilation is seen in the liver. The common bile duct measures 9 mm in the pancreatic head which is mildly prominent. There are scattered reactive periaortic lymph nodes in the retroperitoneum unchanged. Kidneys remain unremarkable. The orally administered contrast is seen opacifying the small and the entire large bowel. Pelvic CT images again demonstrate a moderate to marked mural thickening involving the rectosigmoid colon. In the central mid pelvis today's CT study again demonstrates an abscess cavity. On transverse images this abscess cavity appears improved in overall size. Its maximum transverse dimensions today are 3.7 x 3.4 cm compared to 7.0 x 4.4 cm on November 21, 2020. Its craniocaudal span is 4.6 cm today, previously 5.1 cm. There is a small fluid collection along the left pelvis which is essentially unchanged. this measures 1.4 cm in short axis dimension and runs along the rectosigmoid colon loop. No other definite abscess cavity is seen. IMPRESSION: Complex shaped central pelvic abscess persists although there has been improvement in the size of the lesion since the recent study of November 21, 2020. <Electronically signed by Nimesh Kramer > 11/23/20 0921
[2020-11-23] MEDS ORDERED: ALBUTEROL 90 MCG/ACT 8GM HFA INHALER INH PRN (13:30)
[2020-11-23] MEDS ORDERED: DOCUSATE SODIUM 100MG CAPSULE PO PRN (13:30)
[2020-11-23 14:00] VITALS: BP 119/68
[2020-11-23] MEDS: SIMVASTATIN 40 MG TAB PO SCH (14:27)
[2020-11-23] MEDS: CYANOCOBALAMIN 500 MCG TAB PO SCH (14:29)
[2020-11-23] MEDS: PANTOPRAZOLE 40MG TAB (PROTONIX) PO SCH (14:31)
[2020-11-23 20:12] VITALS: BP 90/51
[2020-11-24] MEDS: PIPERACILLIN/TAZOBACTAM SOD 3.375 GM in D5W MINI-BAG PLUS 50 ML IV SCH ×2 (02:21→09:02)
[2020-11-24] MEDS: VANCOMYCIN HCL 1,000 MG, VIAL MATE ADAPTER 1 EACH in NS 250 ML IV SCH ×2 (03:41→12:30)
[2020-11-24 05:20] VITALS: BP 100/60
[2020-11-24] MEDS: HEPARIN SOD (PORCINE) 5000UNITS/ML 1ML VIAL/SYRINGE SC SCH ×2 (05:28→13:24)
[2020-11-24] MEDS: PERCOCET 5MG/325MG TAB PO PRN ×2 (05:28→13:25)
[2020-11-24 05:58] LABS: HEMATOCRIT 31.2 % (36.0-47.0); HEMOGLOBIN 10.1 g/dl (12.0-15.5); MEAN CORPUSCULAR HEMOGLOBIN 31.8 pg (27.0-33.0); MEAN CORPUSCULAR HGB CONC 32.4 g/dl (32.0-36.5); MEAN CORPUSCULAR VOLUME 98.1 fl (80.0-96.0); PLATELET COUNT, AUTOMATED 285 10^3/uL (150-450); RED BLOOD COUNT 3.18 10^6/uL (4.00-5.40); WHITE BLOOD COUNT 7.4 10^3/uL (4.0-10.0)
[2020-11-24 06:29] LABS: BLOOD UREA NITROGEN 2 MG/DL (7-18); CALCIUM LEVEL 8.7 MG/DL (8.5-10.1); CARBON DIOXIDE LEVEL 29 MEQ/L (21-32); CHLORIDE LEVEL 108 MEQ/L (98-107); CREATININE FOR GFR 0.57 MG/DL (0.55-1.30); GLOMERULAR FILTRATION RATE > 60.0 (>51); GLUCOSE, FASTING 88 MG/DL (70-100); POTASSIUM SERUM 3.2 MEQ/L (3.5-5.1); SODIUM LEVEL 141 MEQ/L (136-145)
[2020-11-24] MEDS: NS 1,000 ML IV SCH (09:02)
[2020-11-24] MEDS: PANTOPRAZOLE 40MG TAB (PROTONIX) PO SCH (09:02)
[2020-11-24] MEDS: SIMVASTATIN 40 MG TAB PO SCH (09:02)
[2020-11-24] MEDS: CYANOCOBALAMIN 500 MCG TAB PO SCH (09:02)
[2020-11-24 09:24] LABS: MAGNESIUM LEVEL 1.5 MG/DL (1.8-2.4); PHOSPHORUS LEVEL 2.7 MG/DL (2.5-4.9)
[2020-11-24 10:50] VITALS: BP 97/47
[2020-11-24] MEDS ORDERED: POTASSIUM CHLORIDE 10MEQ SR TABLET PO ONE ×2 (13:40→14:00)
[2020-11-24] MEDS ORDERED: CIPR500T39 PO (13:45)
[2020-11-24] MEDS ORDERED: FLAG500T PO (13:45)
[2020-11-24] MEDS ORDERED: MAGNESIUM OXIDE 400MG TAB (MAG-OX) PO ONE (14:00)
--- NOTE | 2020-11-24 14:01 | DS.PDOC ---
Discharge Summary General Date of Admission Nov 21, 2020 at 15:42 Date of Discharge 11/24/20 Discharge Summary DISCHARGE DIAGNOSES: 1. Pelvic abscess 2. Covid 3. Electrolyte abnormality COMPLICATIONS/CHIEF COMPLAINT: Pelvic Abscess,Sars-Cov-2 Positive. HOSPITAL COURSE: Ms. Oliver, 50-year-old female with past medical history positive below who presented to the emergency department with fever, abdominal pain and diarrhea. An abdominal CT scan revealed a complex excessive amatory change in pelvis mu ltiple irregularly-shaped interloop abscesses. She was placed on IV antibiotics and evaluated by the surgical team. There was not an appropriate window for IR drainage. Medical management was recommended with IV antibiotics and with a repeat CT scan to note if there was any interval change in the abscess. A repeat CT scan done on 11/23 noted that the pelvic abscess had improved in size. Thus, after discussing with the patient and surgical team it was decided she would be discharged home with p.o. antibiotics (ciprofloxacin and Flagyl for 10 days) with a follow-up appointment with surgery as an outpatient. Patient was in agreement with this plan and would like to try antibiotics before undergoing any surgical interventions at this time. At the time of discharge her symptoms had resolved including her abdominal pain, and loose stools. Of note, patient was also noted to test positive for Covid. She never required oxygen supplementation during hospitalization. Monoclonal antibodies were discussed with her. Risks as well as benefits were told in length, and patient was willing to proceed monoclonal antibodies when she was discharged. Consent was signed and put in the chart. During hospitalization, she did have electrolyte imbalances she required potassium as well as magnesium supplementation. She is encouraged to follow-up with her primary care physician to ensure that her electrolytes are within normal limits with repeat blood work. Also, is noted that she has anemia, which can be worked up with her primary care physician. Patient refused home care. DISCHARGE MEDICATIONS: Please see below. ALLERGIES: Please see below. PHYSICAL EXAMINATION ON DISCHARGE: VITAL SIGNS: Please see below. General: Lying in bed, no acute distress Head/Neck/Throat: Trachea midline, mucous membranes moist Eyes: Sclera anicteric, PERRLA Thorax: Normal respiratory effort on room air, lungs clear to auscultation bilaterally, no wheezes/rales/rhonchi Cardiovascular: Normal rate, regular rhythm, normal S1, S2; no S3, S4, rubs/gallops/murmurs Abdomen: Bowel sounds present, soft/nontender/nondistended Genitourinary: No CVA tenderness, no Mario in place Musculoskeletal: Moving all extremities, no edema Skin: Warm, dry Neurologic: AAOx3, speech fluent and goal-directed, no focal deficits, grossly intact LABORATORY DATA: Please see below. IMAGING: CT ABD & PELVIS WITH CONTRAST FINDINGS: Preliminary digital um rn radiograph demonstrates mild gaseous distention of the transverse and splenic flexure are section of the colon. The lung bases remain clear. Liver and spleen remain unremarkable. The gallbladder is distended. This is unchanged from the 11/21/2020 study. No biliary ductal dilation is seen in the liver. The common bile duct measures 9 mm in the pancreatic head which is mildly prominent. There are scattered reactive periaortic lymph nodes in the retroperitoneum unchanged. Kidneys remain unremarkable. The orally administered contrast is seen opacifying the small and the entire large bowel. Pelvic CT images again demonstrate a moderate to marked mural thickening involving the rectosigmoid colon. In the central mid pelvis today's CT study again demonstrates an abscess cavity. On transverse images this abscess cavity appears improved in overall size. Its maximum transverse dimensions today are 3.7 x 3.4 cm compared to 7.0 x 4.4 cm on November 21, 2020. Its craniocaudal span is 4.6 cm today, previously 5.1 cm. There is a small fluid collection along the left pelvis which is essentially unchanged. this measures 1.4 cm in short axis dimension and runs along the rectosigmoid colon loop. No other definite abscess cavity is seen. IMPRESSION: Complex shaped central pelvic abscess persists although there has been impr ovement in the size of the lesion since the recent study of November 21, 2020. ACTIVITY: [As tolerated]. DIET: Low fiber diet. ITEMS TO FOLLOWUP ON ON OUTPATIENT: 1. Follow-up with surgical team in 5 to 7 days DISCHARGE CONDITION: Stable TIME SPENT ON DISCHARGE: 30 minutes. Vital Signs/I&Os Vital Signs Date Time Temp Pulse Resp B/P (MAP) Pulse Ox O2 Delivery O2 Flow Rate FiO2 11/24/20 13:25 18 Room Air 11/24/20 10:50 98.8 79 97/47 (64) 99 I&O- Last 24 Hours up to 6 AM 11/24/20 06:00 Intake Total 2775 ml Output Total 1000 ml Balance 1775 ml Laboratory Data Labs 24H Laboratory Tests 2 11/24/20 05:35: Nucleated Red Blood Cells % (auto) 0.0, Anion Gap 4L, Glomerular Filtration Rate > 60.0, Calcium Level 8.7, Phosphorus Level 2.7#, Magnesium Level 1.5L 11/24/20 11:12: Vancomycin Level Trough 13.3 CBC/BMP Laboratory Tests 11/24/20 05:35 Microbiology Microbiology 11/21/20 Blood Culture - Preliminary, Resulted No Growth after 48 hours. All Specime... 11/21/20 Blood Culture - Preliminary, Resulted No Growth after 48 hours. All Specime... 11/21/20 Blood Culture - Preliminary, Resulted No Growth after 72 hours. All specime... 11/21/20 Blood Culture - Preliminary, Resulted No Growth after 72 hours. All specime... 11/21/20 Respiratory Virus Panel (PCR) ([facility]) - Final, Complete SARS-CoV-2 (COVID 19) Discharge Medications Scheduled Ciprofloxacin HCl (Ciprofloxacin HCl) 500 Mg Tablet, 500 MG PO BID Clopidogrel Bisulfate (Clopidogrel) 75 Mg Tablet, 75 MG PO DAILY, (Reported) Cyanocobalamin (Vitamin B-12) (Vitamin B-12) 500 Mcg Tablet, 1,000 MCG PO DAILY, (Reported) Metronidazole (Flagyl) 500 Mg Tablet, 500 MG PO Q8H FOR 10 DAYS Pantoprazole Sodium (Protonix) 40 Mg Tablet.dr, 40 MG PO DAILY, (Reported) Simvastatin (Simvastatin) 40 Mg Tablet, 40 MG PO DAILY, (Reported) Scheduled PRN Albuterol Sulfate (Proair Hfa) 8.5 Gm Hfa.aer.ad, 2 PUFF INH Q4H PRN for SOB/WHE EZING, (Reported) Docusate Sodium (Colace) 100 Mg Capsule, 100 MG PO DAILY PRN for CONSTIPATION, (Reported) Epinephrine (Epipen 2-Wu) 0.3 Mg/0.3 Ml Auto.injct, 0.3 MG IM ASDIRECTED PRN for ANAPHYLAXIS, (Reported) Allergies Coded Allergies: No Known Allergies (Unverified , 06/26/17) JAIRO BROOKS M.D. Nov 24, 2020 13:59
== END 2020-11-24 15:46 | disposition home health service (06) | DRG 248 ==
LOC: M ED 08:09 → M ED INP 15:42 → ENRESERV 16:25 → M 4MAIN 16:50
PROVIDERS: ADMIT Neuromusculoskeletal Medicine & OMM; ATTEND Neuromusculoskeletal Medicine & OMM
DX: K65.1 Peritoneal abscess (principal); I74.5 Embolism and thrombosis of iliac artery; Z87.891 Personal history of nicotine dependence; F10.10 Alcohol abuse, uncomplicated; F12.10 Cannabis abuse, uncomplicated; D64.9 Anemia, unspecified; E55.9 Vitamin D deficiency, unspecified; G62.9 Polyneuropathy, unspecified; F32.9 Major depressive disorder, single episode, unspecified; I71.4 Abdominal aortic aneurysm, without rupture; I73.9 Peripheral vascular disease, unspecified; J45.909 Unspecified asthma, uncomplicated; I50.32 Chronic diastolic (congestive) heart failure; Z95.828 Presence of other vascular implants and grafts; E87.6 Hypokalemia; K21.9 Gastro-esophageal reflux disease without esophagitis; E53.8 Deficiency of other specified B group vitamins; U07.1 COVID-19; Z79.899 Other long term (current) drug therapy

== ENCOUNTER 2020-11-24 15:51 | Outpatient (CLI) | payer BC ==
[~2020-11-24] VITALS: Ht 152.4 cm; Wt 69.0 kg
[~2020-11-24 15:51] MED LIST changes: +ALBUTEROL 90 MCG/ACT 8GM HFA INHALER INH PRN; +ALBUTEROL SULFATE 2.5 MG/0.5 ML INH NEB SOLN INH PRN; +CASIRIVIMAB/IMDEVIMAB 1,200 MG in NS 250 ML IV ONE; +CIPR500T39 PO; +CLOP75TA2 PO; +EPINEPHrine INJ 1 MG/ML 1ML AMP IM PRN; +NS 1,000 ML IV SCH; +ZOLO100T; +diphenhydrAMINE 50MG/ML VIAL (J1200) IV PRN; +methylPREDNISolone 125MG 2ML VIAL IV PRN
[2020-11-24 17:10] VITALS: BP 108/69
[2020-11-24 17:25] VITALS: BP 141/63
[2020-11-24 18:01] VITALS: BP 122/76
[2020-11-24 19:15] VITALS: BP 120/56
[2020-11-25 01:05] VITALS: BP 132/67
== END 2020-11-24 19:30 ==
LOC: M OPCLI4 15:51 → M 4MAIN 15:52 → M OPCLI4 19:30
PROVIDERS: ATTEND Internal Medicine
DX: U07.1 COVID-19 (principal)

== ENCOUNTER → 2020-12-19 | Outpatient (CLI) | payer BC ==
[~2020-12-19] MED LIST changes: -ALBUTEROL 90 MCG/ACT 8GM HFA INHALER INH PRN; -ALBUTEROL SULFATE 2.5 MG/0.5 ML INH NEB SOLN INH PRN; -CASIRIVIMAB/IMDEVIMAB 1,200 MG in NS 250 ML IV ONE; -EPINEPHrine INJ 1 MG/ML 1ML AMP IM PRN; +GASTROGRAFIN SOLUTION 30ML (Q9963) ONE; +ISOVUE-370 76% 100ML VIAL ONE; -NS 1,000 ML IV SCH; -diphenhydrAMINE 50MG/ML VIAL (J1200) IV PRN; -methylPREDNISolone 125MG 2ML VIAL IV PRN
--- NOTE | 2020-12-20 09:54 | REP ---
INDICATION: GENERALIZED ABD PAIN. COMPARISON: Multiple the latest 11/23/2020 TECHNIQUE: Standard helical technique before and after the intravenous administration of 100 cc Isovue 370. Oral bowel preparatory contrast was administered prior to the exam. FINDINGS: The lung bases are clear and unchanged. The liver, gallbladder, spleen, pancreas, adrenal glands, and kidneys are unchanged. The abdominal aorta and para-aortic regions are unchanged. There is para-aortic adenopathy status quo. There is no evidence of free fluid.. There is diffuse thickening of the ibanez of the sigmoid colon which has increased from the prior exam. The previously described pelvic abscess has gotten smaller. It is between the cecum and sigmoid colon unchanged in position from the prior exam and measuring approximately 3 x 2 cm. The smaller abscess in the left para sigmoidal region has almost completely resolved. A single dot of air density persists which has decreased. There is an unchanged low abdominal ventral hernia. The air density within the low abdominal anterior subcutaneous adipose tissue has resolved. There is no significant change in appearance of the osseous structures. IMPRESSION: 1. Pelvic abscesses seen previously have decreased in size as described above. 2. Persistent diffuse thickening of the ibanez of the sigmoid colon which may have increased slightly. 3. Unchanged ventral hernia. 4. Other findings as described above. <Electronically signed by Andriy Gamez > 12/20/20 [id number]
== END ==
LOC: M PLAIMG 13:58
PROVIDERS: ATTEND Surgery
DX: R10.84 Generalized abdominal pain (principal); K43.9 Ventral hernia without obstruction or gangrene; K65.1 Peritoneal abscess
CPT/HCPCS: 74178; Q9963; Q9967

== ENCOUNTER → 2021-02-02 | Outpatient (REF) | payer BC ==
[~2021-02-02] MED LIST changes: -GASTROGRAFIN SOLUTION 30ML (Q9963) ONE; -ISOVUE-370 76% 100ML VIAL ONE; +LEXA1TAB PO
== END ==
LOC: M SFHCPLAZ 15:32
PROVIDERS: ATTEND Family Medicine
DX: Z53.20 Procedure and treatment not carried out because of patient's decision for unspecified reasons (principal)

== ENCOUNTER → 2021-03-09 | Outpatient (CLI) | payer BC ==
[~2021-03-09] MED LIST changes: -LEXA1TAB PO
[2021-03-09 14:03] LABS: BASO # 0.1 10^3/uL (0.0-0.2); BASO % 0.7 % (0.0-1.0); EOS % 0.4 % (0.0-3.0); HEMATOCRIT 40.9 % (36.0-47.0); HEMOGLOBIN 13.3 g/dl (12.0-15.5); LYMPH # 1.5 10^3/uL (1.5-5.0); LYMPH % 21.2 % (24.0-44.0); MEAN CORPUSCULAR HEMOGLOBIN 31.7 pg (27.0-33.0); MEAN CORPUSCULAR HGB CONC 32.5 g/dl (32.0-36.5); MEAN CORPUSCULAR VOLUME 97.4 fl (80.0-96.0); MONO # 0.4 10^3/uL (0.0-0.8); MONO % 5.5 % (2.0-8.0); NEUTROPHILS % 71.9 % (36.0-66.0); PLATELET COUNT, AUTOMATED 319 10^3/uL (150-450); WHITE BLOOD COUNT 6.9 10^3/uL (4.0-10.0)
[2021-03-09 14:34] LABS: ALBUMIN 4.1 GM/DL (3.2-5.2); ALT/SGPT 20 U/L (12-78); BILIRUBIN,TOTAL 0.3 MG/DL (0.2-1.0); BLOOD UREA NITROGEN 7 MG/DL (7-18); CALCIUM LEVEL 9.8 MG/DL (8.5-10.1); CARBON DIOXIDE LEVEL 30 MEQ/L (21-32); CHLORIDE LEVEL 107 MEQ/L (98-107); GLOMERULAR FILTRATION RATE > 60.0 (>51); GLUCOSE, FASTING 101 MG/DL (70-100); POTASSIUM SERUM 3.9 MEQ/L (3.5-5.1); SODIUM LEVEL 142 MEQ/L (136-145)
[2021-03-09 14:49] LABS: TOTAL 25(OH) VITAMIN D 21.5 NG/ML (30.0-100.0)
== END ==
LOC: M LAB 13:23
PROVIDERS: ATTEND Student in an Organized Health Care Education/Training Program
DX: E55.9 Vitamin D deficiency, unspecified (principal); D63.8 Anemia in other chronic diseases classified elsewhere

== ENCOUNTER → 2021-03-27 | Outpatient (CLI) | payer BC ==
[~2021-03-27] MED LIST changes: +GASTROGRAFIN SOLUTION 30ML (Q9963) As Ordered ONE; +ISOVUE-370 76% 100ML VIAL As Ordered ONE
== END ==
LOC: M RAD 12:18
PROVIDERS: ATTEND Surgery
DX: R10.84 Generalized abdominal pain (principal); K43.9 Ventral hernia without obstruction or gangrene; I77.811 Abdominal aortic ectasia; K63.89 Other specified diseases of intestine
CPT/HCPCS: 74178; Q9963; Q9967

== ENCOUNTER 2021-04-16 10:12 | Inpatient (IN) | payer BC ==
[~2021-04-16] VITALS: Ht 152.4 cm; Wt 60.5 kg
[2021-04-16] VITALS (19 sets, daily range): BP systolic 76–104; BP diastolic 50–65
[~2021-04-16 10:12] MED LIST changes: -GASTROGRAFIN SOLUTION 30ML (Q9963) As Ordered ONE; -ISOVUE-370 76% 100ML VIAL As Ordered ONE
[2021-04-16] MEDS ORDERED: NS 1,000 ML IV SCH (10:25)
[2021-04-16] MEDS ORDERED: MORPHINE 4 MG/ML 1ML VIAL/SYRINGE (J2270) IV PRN ×2 (10:45→13:05)
[2021-04-16] MEDS ORDERED: ONDANSETRON 4MG/2ML VIAL IV ONE (10:45)
[2021-04-16] MEDS ORDERED: ISOVUE-370 76% 100ML VIAL As Ordered ONE (10:46)
[2021-04-16 10:59] LABS: HEMATOCRIT 45.6 % (36.0-47.0); HEMOGLOBIN 14.8 g/dl (12.0-15.5); MEAN CORPUSCULAR HEMOGLOBIN 30.7 pg (27.0-33.0); MEAN CORPUSCULAR HGB CONC 32.5 g/dl (32.0-36.5); MEAN CORPUSCULAR VOLUME 94.6 fl (80.0-96.0); PLATELET COUNT, AUTOMATED 275 10^3/uL (150-450); RED BLOOD COUNT 4.82 10^6/uL (4.00-5.40)
[2021-04-16 11:28] LABS: BLOOD UREA NITROGEN 13 MG/DL (7-18); CALCIUM LEVEL 9.4 MG/DL (8.5-10.1); CARBON DIOXIDE LEVEL 25 MEQ/L (21-32); CHLORIDE LEVEL 103 MEQ/L (98-107); CREATININE FOR GFR 0.72 MG/DL (0.55-1.30); GLOMERULAR FILTRATION RATE > 60.0 (>51); GLUCOSE, FASTING 103 MG/DL (70-100); POTASSIUM SERUM 2.9 MEQ/L (3.5-5.1); SODIUM LEVEL 137 MEQ/L (136-145)
[2021-04-16 11:33] LABS: ALBUMIN 3.5 GM/DL (3.2-5.2); ALT/SGPT 17 U/L (12-78); ATYPICAL LYMPH 1 % (0-5); BILIRUBIN,DIRECT < 0.1 MG/DL (0.0-0.2); BILIRUBIN,TOTAL 0.5 MG/DL (0.2-1.0); ETHYL ALCOHOL (ETHANOL) < 0.003 % (0.000-0.010); LIPASE 74 U/L (73-393); LYMPHOCYTES 12 % (16-44); MONOCYTES 9 % (0-5); NEUTROPHILS 63 % (28-66)
[2021-04-16 11:34] LABS: PLATELET ESTIMATE NORMAL (NORMAL)
[2021-04-16 11:35] LABS: PLATELET CLUMPS SMALL AMT
[2021-04-16 11:51] LABS: INR 1.01; PROTHROMBIN TIME 13.7 SECONDS (12.7-14.5)
[2021-04-16] MEDS ORDERED: PIPERACILLIN/TAZOBACTAM SOD 3.375 GM in D5W MINI-BAG PLUS 50 ML IV ONE (12:20)
[2021-04-16 12:44] LABS: RSV AMPLIFICATION NEGATIVE (NEGATIVE)
[2021-04-16] MEDS ORDERED: POTASSIUM CHLORIDE 10MEQ SR TABLET PO ONE (13:05)
[2021-04-16] MEDS ORDERED: NS 1,620 ML in IV 1 EA IV ONE (13:15)
[2021-04-16] MEDS ORDERED: LEXA1TAB PO (13:23)
[2021-04-16 13:41] LABS: MAGNESIUM LEVEL 1.9 MG/DL (1.8-2.4)
[2021-04-16] MEDS: KCL 20MEQ in NS 1000ML 1,000 ML IV SCH ×2 (13:57→23:42)
[2021-04-16] MEDS: ACETAMINOPHEN TAB 650MG DOSE (2X325MG) PO PRN ×2 (14:00→22:27)
[2021-04-16] MEDS: KCL 10MEQ/100ML SWI (KRUN) 10 MEQ in IV 1 EA IV SCH ×4 (14:06→17:19)
[2021-04-16] MEDS: KETOROLAC 30 MG/ML 1ML VIAL IV PRN ×2 (14:12→20:00)
[2021-04-16] MEDS ORDERED: HOME MED LIST COMPLETE! XX SCH (14:20)
[2021-04-16] MEDS ORDERED: NS 1,000 ML IV ONE (15:00)
[2021-04-16] MEDS: VANCOMYCIN ORAL SOL 250MG/5ML ORAL SYRINGE PO SCH ×2 (15:41→18:06)
[2021-04-16] MEDS: PIPERACILLIN/TAZOBACTAM SOD 4.5 GM in D5W MINI-BAG PLUS 50 ML IV SCH (18:11)
[2021-04-17] VITALS (45 sets, daily range): BP systolic 73–133; BP diastolic 50–85
[2021-04-17] MEDS ORDERED: NS 500 ML IV ONE (00:35)
[2021-04-17] MEDS: PIPERACILLIN/TAZOBACTAM SOD 4.5 GM in D5W MINI-BAG PLUS 50 ML IV SCH ×4 (00:42→18:29)
[2021-04-17] MEDS: VANCOMYCIN ORAL SOL 250MG/5ML ORAL SYRINGE PO SCH ×4 (00:42→18:29)
[2021-04-17] MEDS: KETOROLAC 30 MG/ML 1ML VIAL IV PRN ×4 (02:34→22:48)
[2021-04-17 05:20] LABS: HEMATOCRIT 33.1 % (36.0-47.0); MEAN CORPUSCULAR HEMOGLOBIN 31.2 pg (27.0-33.0); MEAN CORPUSCULAR VOLUME 97.4 fl (80.0-96.0); PLATELET COUNT, AUTOMATED 206 10^3/uL (150-450); WHITE BLOOD COUNT 5.6 10^3/uL (4.0-10.0)
[2021-04-17 05:24] LABS: HEMOGLOBIN 10.6 g/dl (12.0-15.5)
[2021-04-17 05:46] LABS: ALBUMIN 2.6 GM/DL (3.2-5.2); ALT/SGPT 11 U/L (12-78); BILIRUBIN,TOTAL 0.5 MG/DL (0.2-1.0); BLOOD UREA NITROGEN 5 MG/DL (7-18); CALCIUM LEVEL 7.7 MG/DL (8.5-10.1); CARBON DIOXIDE LEVEL 17 MEQ/L (21-32); CHLORIDE LEVEL 117 MEQ/L (98-107); CREATININE FOR GFR 0.43 MG/DL (0.55-1.30); GLOMERULAR FILTRATION RATE > 60.0 (>51); GLUCOSE, FASTING 88 MG/DL (70-100); MAGNESIUM LEVEL 1.5 MG/DL (1.8-2.4); POTASSIUM SERUM 3.6 MEQ/L (3.5-5.1); SODIUM LEVEL 142 MEQ/L (136-145); TOTAL PROTEIN 5.8 GM/DL (6.4-8.2)
[2021-04-17] MEDS ORDERED: MAG SULF 1GM/100ML (MAG RUN) 1 GM in IV 1 EA IV ONE (08:30)
[2021-04-17] MEDS: KCL 20MEQ in NS 1000ML 1,000 ML IV SCH ×2 (08:41→18:30)
[2021-04-17] MEDS ORDERED: CALCIUM GLUCONATE 1,000 MG in D5W MINI-BAG PLUS 100 ML IV ONE (09:30)
[2021-04-17] MEDS ORDERED: MORPHINE 4 MG/ML 1ML VIAL/SYRINGE (J2270) IV PRN ×2 (13:25→13:30)
[2021-04-17] MEDS ORDERED: CHLORASEPTIC SPRAY MT PRN (14:55)
[2021-04-17] MEDS ORDERED: ONDANSETRON 4MG/2ML VIAL IV PRN (14:55)
[2021-04-17] MEDS: MORPHINE 4 MG/ML 1ML VIAL/SYRINGE (J2270) IV PRN ×2 (16:09→20:08)
[2021-04-18] VITALS (22 sets, daily range): BP systolic 84–123; BP diastolic 52–73
[2021-04-18] MEDS: MORPHINE 4 MG/ML 1ML VIAL/SYRINGE (J2270) IV PRN ×5 (00:02→20:16)
[2021-04-18] MEDS: VANCOMYCIN ORAL SOL 250MG/5ML ORAL SYRINGE PO SCH ×2 (00:03→05:53)
[2021-04-18] MEDS: PIPERACILLIN/TAZOBACTAM SOD 4.5 GM in D5W MINI-BAG PLUS 50 ML IV SCH ×3 (00:03→11:51)
[2021-04-18] MEDS: KCL 20MEQ in NS 1000ML 1,000 ML IV SCH (04:49)
[2021-04-18 04:57] LABS: HEMATOCRIT 32.2 % (36.0-47.0); HEMOGLOBIN 10.4 g/dl (12.0-15.5); MEAN CORPUSCULAR HEMOGLOBIN 31.1 pg (27.0-33.0); MEAN CORPUSCULAR HGB CONC 32.3 g/dl (32.0-36.5); MEAN CORPUSCULAR VOLUME 96.4 fl (80.0-96.0); PLATELET COUNT, AUTOMATED 229 10^3/uL (150-450); RED BLOOD COUNT 3.34 10^6/uL (4.00-5.40); WHITE BLOOD COUNT 7.9 10^3/uL (4.0-10.0)
[2021-04-18 05:28] LABS: ALBUMIN 2.5 GM/DL (3.2-5.2); ALT/SGPT 11 U/L (12-78); BILIRUBIN,TOTAL 0.6 MG/DL (0.2-1.0); BLOOD UREA NITROGEN 3 MG/DL (7-18); CALCIUM LEVEL 8.1 MG/DL (8.5-10.1); CARBON DIOXIDE LEVEL 22 MEQ/L (21-32); CHLORIDE LEVEL 114 MEQ/L (98-107); CREATININE FOR GFR 0.42 MG/DL (0.55-1.30); GLOMERULAR FILTRATION RATE > 60.0 (>51); GLUCOSE, FASTING 64 MG/DL (70-100); MAGNESIUM LEVEL 1.8 MG/DL (1.8-2.4); POTASSIUM SERUM 3.2 MEQ/L (3.5-5.1); SODIUM LEVEL 143 MEQ/L (136-145); TOTAL PROTEIN 6.3 GM/DL (6.4-8.2)
[2021-04-18] MEDS: KETOROLAC 30 MG/ML 1ML VIAL IV PRN ×3 (05:53→19:11)
[2021-04-18] MEDS ORDERED: GLUCOSE 4GM CHEW TABLET PO PRN (08:30)
[2021-04-18] MEDS ORDERED: MAG SULF 1GM/100ML (MAG RUN) 1 GM in IV 1 EA IV ONE (08:30)
[2021-04-18] MEDS ORDERED: DEXTROSE 50% 50 ML SYRINGE IV PRN (08:30)
[2021-04-18] MEDS ORDERED: GLUCAGON INJ 1MG VIAL SC PRN (08:30)
[2021-04-18] MEDS ORDERED: KCL 10MEQ/100ML SWI (KRUN) 10 MEQ in IV 1 EA IV SCH (09:00)
[2021-04-18] MEDS: KCL 20MEQ IN D5/NS 1000ML 1,000 ML IV SCH ×2 (09:26→19:12)
[2021-04-18] MEDS ORDERED: POTASSIUM CHLORIDE 10% LIQ 20 MEQ/15 ML UDC PO ONE (11:30)
[2021-04-18] MEDS: metroNIDAZOLE 500 MG in IV 1 EA IV SCH ×2 (16:33→23:41)
[2021-04-18] MEDS: CEFEPIME HCL 2 GM in D5W MINI-BAG PLUS 50 ML IV SCH (17:56)
[2021-04-19] VITALS (14 sets, daily range): BP systolic 85–121; BP diastolic 51–70
[2021-04-19] MEDS: MORPHINE 4 MG/ML 1ML VIAL/SYRINGE (J2270) IV PRN ×3 (00:28→11:49)
[2021-04-19] MEDS: CEFEPIME HCL 2 GM in D5W MINI-BAG PLUS 50 ML IV SCH ×3 (02:00→18:25)
[2021-04-19] MEDS: KETOROLAC 30 MG/ML 1ML VIAL IV PRN ×3 (02:13→23:35)
[2021-04-19 04:44] LABS: HEMATOCRIT 30.3 % (36.0-47.0); HEMOGLOBIN 9.9 g/dl (12.0-15.5); MEAN CORPUSCULAR HEMOGLOBIN 31.1 pg (27.0-33.0); MEAN CORPUSCULAR HGB CONC 32.7 g/dl (32.0-36.5); MEAN CORPUSCULAR VOLUME 95.3 fl (80.0-96.0); PLATELET COUNT, AUTOMATED 229 10^3/uL (150-450); RED BLOOD COUNT 3.18 10^6/uL (4.00-5.40); WHITE BLOOD COUNT 9.7 10^3/uL (4.0-10.0)
[2021-04-19] MEDS: KCL 20MEQ IN D5/NS 1000ML 1,000 ML IV SCH ×2 (05:12→15:09)
[2021-04-19 05:20] LABS: ALBUMIN 2.4 GM/DL (3.2-5.2); ALT/SGPT 9 U/L (12-78); BILIRUBIN,TOTAL 0.4 MG/DL (0.2-1.0); BLOOD UREA NITROGEN 3 MG/DL (7-18); CALCIUM LEVEL 8.1 MG/DL (8.5-10.1); CARBON DIOXIDE LEVEL 24 MEQ/L (21-32); CHLORIDE LEVEL 112 MEQ/L (98-107); CREATININE FOR GFR 0.43 MG/DL (0.55-1.30); GLOMERULAR FILTRATION RATE > 60.0 (>51); GLUCOSE, FASTING 109 MG/DL (70-100); MAGNESIUM LEVEL 1.8 MG/DL (1.8-2.4); POTASSIUM SERUM 3.5 MEQ/L (3.5-5.1); SODIUM LEVEL 143 MEQ/L (136-145); TOTAL PROTEIN 5.9 GM/DL (6.4-8.2)
[2021-04-19] MEDS: metroNIDAZOLE 500 MG in IV 1 EA IV SCH ×3 (08:21→23:34)
[2021-04-19] MEDS ORDERED: POTASSIUM CHLORIDE 10% LIQ 20 MEQ/15 ML UDC PO ONE (10:00)
[2021-04-19] MEDS ORDERED: MAG SULF 1GM/100ML (MAG RUN) 1 GM in IV 1 EA IV ONE (10:00)
[2021-04-20] VITALS (7 sets, daily range): BP systolic 94–127; BP diastolic 51–74
[2021-04-20] MEDS: KCL 20MEQ IN D5/NS 1000ML 1,000 ML IV SCH ×3 (01:02→16:54)
[2021-04-20] MEDS: CEFEPIME HCL 2 GM in D5W MINI-BAG PLUS 50 ML IV SCH ×2 (01:02→10:30)
[2021-04-20 05:20] LABS: HEMATOCRIT 29.5 % (36.0-47.0); HEMOGLOBIN 9.6 g/dl (12.0-15.5); MEAN CORPUSCULAR HEMOGLOBIN 30.8 pg (27.0-33.0); MEAN CORPUSCULAR HGB CONC 32.5 g/dl (32.0-36.5); MEAN CORPUSCULAR VOLUME 94.6 fl (80.0-96.0); PLATELET COUNT, AUTOMATED 230 10^3/uL (150-450); RED BLOOD COUNT 3.12 10^6/uL (4.00-5.40); WHITE BLOOD COUNT 4.8 10^3/uL (4.0-10.0)
[2021-04-20 05:59] LABS: ALBUMIN 2.4 GM/DL (3.2-5.2); ALT/SGPT 10 U/L (12-78); BILIRUBIN,TOTAL 0.2 MG/DL (0.2-1.0); BLOOD UREA NITROGEN 3 MG/DL (7-18); CARBON DIOXIDE LEVEL 24 MEQ/L (21-32); CHLORIDE LEVEL 111 MEQ/L (98-107); GLOMERULAR FILTRATION RATE > 60.0 (>51); GLUCOSE, FASTING 91 MG/DL (70-100); MAGNESIUM LEVEL 1.8 MG/DL (1.8-2.4); POTASSIUM SERUM 3.9 MEQ/L (3.5-5.1); SODIUM LEVEL 140 MEQ/L (136-145); TOTAL PROTEIN 5.7 GM/DL (6.4-8.2)
[2021-04-20] MEDS: metroNIDAZOLE 500 MG in IV 1 EA IV SCH (07:57)
[2021-04-20] MEDS: KETOROLAC 30 MG/ML 1ML VIAL IV PRN (07:57)
[2021-04-20] MEDS ORDERED: MAG SULF 1GM/100ML (MAG RUN) 1 GM in IV 1 EA IV ONE (08:00)
[2021-04-20] MEDS: VANCOMYCIN ORAL SOL 250MG/5ML ORAL SYRINGE PO SCH ×3 (13:19→23:44)
[2021-04-20] MEDS: PERCOCET 5MG/325MG TAB PO PRN ×2 (14:07→20:50)
[2021-04-20] MEDS: PIPERACILLIN/TAZOBACTAM SOD 4.5 GM in D5W MINI-BAG PLUS 50 ML IV SCH ×2 (17:37→23:44)
[2021-04-21 00:40] VITALS: BP 97/60
[2021-04-21] MEDS: PERCOCET 5MG/325MG TAB PO PRN ×3 (02:50→17:18)
[2021-04-21] MEDS: **NOTE PATIENT COMMENT** MISC XX SCH (03:37)
[2021-04-21 04:30] VITALS: BP 138/72
[2021-04-21 05:09] LABS: HEMATOCRIT 30.9 % (36.0-47.0); HEMOGLOBIN 10.2 g/dl (12.0-15.5); MEAN CORPUSCULAR HEMOGLOBIN 30.7 pg (27.0-33.0); MEAN CORPUSCULAR VOLUME 93.1 fl (80.0-96.0); PLATELET COUNT, AUTOMATED 307 10^3/uL (150-450); RED BLOOD COUNT 3.32 10^6/uL (4.00-5.40); WHITE BLOOD COUNT 5.9 10^3/uL (4.0-10.0)
[2021-04-21 05:47] LABS: ALBUMIN 2.6 GM/DL (3.2-5.2); ALT/SGPT 11 U/L (12-78); BILIRUBIN,TOTAL 0.2 MG/DL (0.2-1.0); BLOOD UREA NITROGEN 5 MG/DL (7-18); CALCIUM LEVEL 8.4 MG/DL (8.5-10.1); CARBON DIOXIDE LEVEL 26 MEQ/L (21-32); CHLORIDE LEVEL 110 MEQ/L (98-107); CREATININE FOR GFR 0.47 MG/DL (0.55-1.30); GLOMERULAR FILTRATION RATE > 60.0 (>51); GLUCOSE, FASTING 84 MG/DL (70-100); MAGNESIUM LEVEL 1.9 MG/DL (1.8-2.4); POTASSIUM SERUM 4.1 MEQ/L (3.5-5.1); SODIUM LEVEL 142 MEQ/L (136-145); TOTAL PROTEIN 5.9 GM/DL (6.4-8.2)
[2021-04-21] MEDS: PIPERACILLIN/TAZOBACTAM SOD 4.5 GM in D5W MINI-BAG PLUS 50 ML IV SCH ×4 (05:48→23:34)
[2021-04-21] MEDS: VANCOMYCIN ORAL SOL 250MG/5ML ORAL SYRINGE PO SCH ×4 (05:48→23:34)
[2021-04-21] MEDS: KCL 20MEQ IN D5/NS 1000ML 1,000 ML IV SCH ×3 (07:30→23:35)
[2021-04-21 09:05] VITALS: BP 140/63
[2021-04-21] MEDS ORDERED: LIDOCAINE 1% MDV 20ML VIAL As Ordered ONE (10:37)
[2021-04-21] MEDS ORDERED: SODIUM CHLORIDE 0.9% INJ 10 ML SYR IV PRN (13:00)
[2021-04-21 13:43] VITALS: BP 153/66
[2021-04-21] MEDS: LIDOCAINE 5% (LIDODERM) PATCH TD SCH (15:57)
[2021-04-21] MEDS: ESCITALOPRAM OXALATE 10 MG TAB (LEXAPRO) PO SCH (15:57)
[2021-04-21 18:05] VITALS: BP 146/77
[2021-04-21 20:00] VITALS: BP 141/66
[2021-04-21] MEDS: SIMVASTATIN 40 MG TAB PO SCH (20:54)
[2021-04-22] VITALS: BP 152/71
[2021-04-22] MEDS: PERCOCET 5MG/325MG TAB PO PRN ×3 (03:41→17:39)
[2021-04-22 04:00] VITALS: BP 131/63
[2021-04-22] MEDS: PIPERACILLIN/TAZOBACTAM SOD 4.5 GM in D5W MINI-BAG PLUS 50 ML IV SCH ×3 (05:41→17:39)
[2021-04-22] MEDS: VANCOMYCIN ORAL SOL 250MG/5ML ORAL SYRINGE PO SCH ×3 (05:41→17:38)
[2021-04-22 05:46] LABS: HEMATOCRIT 30.5 % (36.0-47.0); HEMOGLOBIN 9.9 g/dl (12.0-15.5); MEAN CORPUSCULAR HEMOGLOBIN 31.3 pg (27.0-33.0); MEAN CORPUSCULAR HGB CONC 32.5 g/dl (32.0-36.5); MEAN CORPUSCULAR VOLUME 96.5 fl (80.0-96.0); PLATELET COUNT, AUTOMATED 326 10^3/uL (150-450); RED BLOOD COUNT 3.16 10^6/uL (4.00-5.40); WHITE BLOOD COUNT 5.4 10^3/uL (4.0-10.0)
[2021-04-22 06:13] LABS: BLOOD UREA NITROGEN 3 MG/DL (7-18); CALCIUM LEVEL 8.5 MG/DL (8.5-10.1); CARBON DIOXIDE LEVEL 30 MEQ/L (21-32); CHLORIDE LEVEL 110 MEQ/L (98-107); CREATININE FOR GFR 0.43 MG/DL (0.55-1.30); GLOMERULAR FILTRATION RATE > 60.0 (>51); GLUCOSE, FASTING 104 MG/DL (70-100); SODIUM LEVEL 143 MEQ/L (136-145)
[2021-04-22 07:32] VITALS: BP 155/73
[2021-04-22] MEDS: ESCITALOPRAM OXALATE 10 MG TAB (LEXAPRO) PO SCH (08:33)
[2021-04-22] MEDS: KCL 20MEQ IN D5/NS 1000ML 1,000 ML IV SCH (08:33)
[2021-04-22] MEDS: ENOXAPARIN 40MG/0.4ML SYRINGE (J1650 PER 10MG) SC SCH (08:33)
[2021-04-22] MEDS: LIDOCAINE 5% (LIDODERM) PATCH TD SCH (08:34)
[2021-04-22 11:19] VITALS: BP 154/67
[2021-04-22] MEDS ORDERED: ISOVUE-370 76% 100ML VIAL As Ordered ONE (12:36)
[2021-04-22 16:00] VITALS: BP 108/58
[2021-04-22 20:00] VITALS: BP 155/67
[2021-04-22] MEDS: SIMVASTATIN 40 MG TAB PO SCH (20:23)
[2021-04-22] MEDS: **NOTE PATIENT COMMENT** MISC XX SCH (20:23)
[2021-04-23] MEDS: PIPERACILLIN/TAZOBACTAM SOD 4.5 GM in D5W MINI-BAG PLUS 50 ML IV SCH ×4 (00:05→17:22)
[2021-04-23] MEDS: VANCOMYCIN ORAL SOL 250MG/5ML ORAL SYRINGE PO SCH ×4 (00:05→17:22)
[2021-04-23] MEDS: PERCOCET 5MG/325MG TAB PO PRN ×4 (00:08→20:26)
[2021-04-23] MEDS ORDERED: SODIUM CHLORIDE 0.9% INJ 10 ML SYR IV PRN (01:10)
[2021-04-23] MEDS: SODIUM CHLORIDE 0.9% INJ 10 ML SYR IV SCH ×2 (06:03→18:00)
[2021-04-23 06:04] VITALS: BP 134/60
[2021-04-23 06:39] LABS: HEMATOCRIT 31.7 % (36.0-47.0); HEMOGLOBIN 10.2 g/dl (12.0-15.5); MEAN CORPUSCULAR HEMOGLOBIN 30.4 pg (27.0-33.0); MEAN CORPUSCULAR HGB CONC 32.2 g/dl (32.0-36.5); MEAN CORPUSCULAR VOLUME 94.6 fl (80.0-96.0); PLATELET COUNT, AUTOMATED 320 10^3/uL (150-450); RED BLOOD COUNT 3.35 10^6/uL (4.00-5.40); WHITE BLOOD COUNT 6.5 10^3/uL (4.0-10.0)
[2021-04-23 06:50] LABS: BLOOD UREA NITROGEN 4 MG/DL (7-18); CALCIUM LEVEL 8.6 MG/DL (8.5-10.1); CARBON DIOXIDE LEVEL 33 MEQ/L (21-32); CHLORIDE LEVEL 107 MEQ/L (98-107); CREATININE FOR GFR 0.49 MG/DL (0.55-1.30); GLOMERULAR FILTRATION RATE > 60.0 (>51); GLUCOSE, FASTING 67 MG/DL (70-100); POTASSIUM SERUM 4.2 MEQ/L (3.5-5.1); SODIUM LEVEL 144 MEQ/L (136-145)
[2021-04-23] MEDS: ENOXAPARIN 40MG/0.4ML SYRINGE (J1650 PER 10MG) SC SCH (08:56)
[2021-04-23] MEDS: LIDOCAINE 5% (LIDODERM) PATCH TD SCH (08:56)
[2021-04-23] MEDS: ESCITALOPRAM OXALATE 10 MG TAB (LEXAPRO) PO SCH (08:56)
[2021-04-23 13:39] VITALS: BP 136/63
[2021-04-23 20:10] VITALS: BP 126/62
[2021-04-23] MEDS: SIMVASTATIN 40 MG TAB PO SCH (20:25)
[2021-04-23] MEDS: **NOTE PATIENT COMMENT** MISC XX SCH (21:57)
[2021-04-24] VITALS (7 sets, daily range): BP systolic 116–174; BP diastolic 65–93
[2021-04-24] MEDS: VANCOMYCIN ORAL SOL 250MG/5ML ORAL SYRINGE PO SCH ×5 (00:24→23:22)
[2021-04-24] MEDS: PIPERACILLIN/TAZOBACTAM SOD 4.5 GM in D5W MINI-BAG PLUS 50 ML IV SCH ×5 (00:24→23:22)
[2021-04-24] MEDS: PERCOCET 5MG/325MG TAB PO PRN ×4 (02:38→23:27)
[2021-04-24] MEDS: SODIUM CHLORIDE 0.9% INJ 10 ML SYR IV SCH ×2 (05:06→17:42)
[2021-04-24 05:37] LABS: HEMATOCRIT 31.7 % (36.0-47.0); HEMOGLOBIN 10.3 g/dl (12.0-15.5); MEAN CORPUSCULAR HEMOGLOBIN 31.4 pg (27.0-33.0); MEAN CORPUSCULAR HGB CONC 32.5 g/dl (32.0-36.5); MEAN CORPUSCULAR VOLUME 96.6 fl (80.0-96.0); PLATELET COUNT, AUTOMATED 307 10^3/uL (150-450); RED BLOOD COUNT 3.28 10^6/uL (4.00-5.40); WHITE BLOOD COUNT 5.9 10^3/uL (4.0-10.0)
[2021-04-24 06:02] LABS: BLOOD UREA NITROGEN 6 MG/DL (7-18); CALCIUM LEVEL 8.7 MG/DL (8.5-10.1); CARBON DIOXIDE LEVEL 31 MEQ/L (21-32); CHLORIDE LEVEL 103 MEQ/L (98-107); CREATININE FOR GFR 0.64 MG/DL (0.55-1.30); GLOMERULAR FILTRATION RATE > 60.0 (>51); GLUCOSE, FASTING 98 MG/DL (70-100); POTASSIUM SERUM 4.2 MEQ/L (3.5-5.1); SODIUM LEVEL 140 MEQ/L (136-145)
[2021-04-24] MEDS: LIDOCAINE 5% (LIDODERM) PATCH TD SCH (09:52)
[2021-04-24] MEDS: ESCITALOPRAM OXALATE 10 MG TAB (LEXAPRO) PO SCH (09:52)
[2021-04-24] MEDS: ENOXAPARIN 40MG/0.4ML SYRINGE (J1650 PER 10MG) SC SCH (09:52)
[2021-04-24] MEDS: **NOTE PATIENT COMMENT** MISC XX SCH (20:46)
[2021-04-24] MEDS: SIMVASTATIN 40 MG TAB PO SCH (20:46)
[2021-04-25] MEDS: VANCOMYCIN ORAL SOL 250MG/5ML ORAL SYRINGE PO SCH ×4 (05:19→23:06)
[2021-04-25] MEDS: PIPERACILLIN/TAZOBACTAM SOD 4.5 GM in D5W MINI-BAG PLUS 50 ML IV SCH ×4 (05:19→23:07)
[2021-04-25] MEDS: SODIUM CHLORIDE 0.9% INJ 10 ML SYR IV SCH ×2 (05:19→18:15)
[2021-04-25 06:00] VITALS: BP 118/72
[2021-04-25 06:14] LABS: HEMATOCRIT 31.7 % (36.0-47.0); HEMOGLOBIN 10.2 g/dl (12.0-15.5); MEAN CORPUSCULAR HEMOGLOBIN 30.6 pg (27.0-33.0); MEAN CORPUSCULAR HGB CONC 32.2 g/dl (32.0-36.5); MEAN CORPUSCULAR VOLUME 95.2 fl (80.0-96.0); PLATELET COUNT, AUTOMATED 308 10^3/uL (150-450); RED BLOOD COUNT 3.33 10^6/uL (4.00-5.40); WHITE BLOOD COUNT 5.6 10^3/uL (4.0-10.0)
[2021-04-25 06:31] LABS: BLOOD UREA NITROGEN 6 MG/DL (7-18); CALCIUM LEVEL 8.5 MG/DL (8.5-10.1); CARBON DIOXIDE LEVEL 33 MEQ/L (21-32); CHLORIDE LEVEL 105 MEQ/L (98-107); CREATININE FOR GFR 0.54 MG/DL (0.55-1.30); GLOMERULAR FILTRATION RATE > 60.0 (>51); GLUCOSE, FASTING 82 MG/DL (70-100); POTASSIUM SERUM 4.3 MEQ/L (3.5-5.1); SODIUM LEVEL 143 MEQ/L (136-145)
[2021-04-25] MEDS: ENOXAPARIN 40MG/0.4ML SYRINGE (J1650 PER 10MG) SC SCH (08:04)
[2021-04-25] MEDS: ESCITALOPRAM OXALATE 10 MG TAB (LEXAPRO) PO SCH (08:04)
[2021-04-25] MEDS: LIDOCAINE 5% (LIDODERM) PATCH TD SCH (08:05)
[2021-04-25] MEDS: PERCOCET 5MG/325MG TAB PO PRN ×4 (08:05→23:07)
[2021-04-25 14:00] VITALS: BP 111/65
[2021-04-25] MEDS: SIMVASTATIN 40 MG TAB PO SCH (20:11)
[2021-04-25] MEDS: **NOTE PATIENT COMMENT** MISC XX SCH (20:12)
[2021-04-25 22:00] VITALS: BP 112/65
[2021-04-26] MEDS: SODIUM CHLORIDE 0.9% INJ 10 ML SYR IV SCH ×2 (05:02→18:07)
[2021-04-26] MEDS: VANCOMYCIN ORAL SOL 250MG/5ML ORAL SYRINGE PO SCH ×3 (05:03→18:06)
[2021-04-26] MEDS: PIPERACILLIN/TAZOBACTAM SOD 4.5 GM in D5W MINI-BAG PLUS 50 ML IV SCH ×3 (05:03→18:06)
[2021-04-26] MEDS: PERCOCET 5MG/325MG TAB PO PRN ×4 (05:11→22:30)
[2021-04-26 05:31] LABS: HEMATOCRIT 31.7 % (36.0-47.0); HEMOGLOBIN 10.3 g/dl (12.0-15.5); MEAN CORPUSCULAR HEMOGLOBIN 31.7 pg (27.0-33.0); MEAN CORPUSCULAR HGB CONC 32.5 g/dl (32.0-36.5); MEAN CORPUSCULAR VOLUME 97.5 fl (80.0-96.0); PLATELET COUNT, AUTOMATED 312 10^3/uL (150-450); RED BLOOD COUNT 3.25 10^6/uL (4.00-5.40); WHITE BLOOD COUNT 5.3 10^3/uL (4.0-10.0)
[2021-04-26 05:49] LABS: BLOOD UREA NITROGEN 6 MG/DL (7-18); CALCIUM LEVEL 8.6 MG/DL (8.5-10.1); CARBON DIOXIDE LEVEL 33 MEQ/L (21-32); CHLORIDE LEVEL 106 MEQ/L (98-107); CREATININE FOR GFR 0.67 MG/DL (0.55-1.30); GLOMERULAR FILTRATION RATE > 60.0 (>51); GLUCOSE, FASTING 75 MG/DL (70-100); POTASSIUM SERUM 4.1 MEQ/L (3.5-5.1); SODIUM LEVEL 140 MEQ/L (136-145)
[2021-04-26 06:00] VITALS: BP 119/58
[2021-04-26 08:30] VITALS: BP 118/70
[2021-04-26] MEDS: LIDOCAINE 5% (LIDODERM) PATCH TD SCH ×2 (09:15→14:34)
[2021-04-26] MEDS: ESCITALOPRAM OXALATE 10 MG TAB (LEXAPRO) PO SCH (09:15)
[2021-04-26] MEDS: ENOXAPARIN 40MG/0.4ML SYRINGE (J1650 PER 10MG) SC SCH (09:16)
[2021-04-26 14:00] VITALS: BP 136/72
[2021-04-26] MEDS: SIMVASTATIN 40 MG TAB PO SCH (20:58)
[2021-04-26] MEDS: **NOTE PATIENT COMMENT** MISC XX SCH ×2 (20:59)
[2021-04-26 22:00] VITALS: BP 163/77
[2021-04-27] MEDS: SODIUM CHLORIDE 0.9% INJ 10 ML SYR IV SCH ×2 (05:16→18:14)
[2021-04-27 05:28] LABS: HEMATOCRIT 34.9 % (36.0-47.0); HEMOGLOBIN 11.1 g/dl (12.0-15.5); MEAN CORPUSCULAR HEMOGLOBIN 30.3 pg (27.0-33.0); MEAN CORPUSCULAR HGB CONC 31.8 g/dl (32.0-36.5); MEAN CORPUSCULAR VOLUME 95.4 fl (80.0-96.0); PLATELET COUNT, AUTOMATED 325 10^3/uL (150-450); RED BLOOD COUNT 3.66 10^6/uL (4.00-5.40); WHITE BLOOD COUNT 5.2 10^3/uL (4.0-10.0)
[2021-04-27 06:00] VITALS: BP 139/84
[2021-04-27 06:03] LABS: BLOOD UREA NITROGEN 6 MG/DL (7-18); CALCIUM LEVEL 8.9 MG/DL (8.5-10.1); CARBON DIOXIDE LEVEL 32 MEQ/L (21-32); CHLORIDE LEVEL 106 MEQ/L (98-107); CREATININE FOR GFR 0.62 MG/DL (0.55-1.30); GLOMERULAR FILTRATION RATE > 60.0 (>51); GLUCOSE, FASTING 97 MG/DL (70-100); POTASSIUM SERUM 4.2 MEQ/L (3.5-5.1); SODIUM LEVEL 141 MEQ/L (136-145)
[2021-04-27 08:15] VITALS: BP 130/82
[2021-04-27] MEDS: ENOXAPARIN 40MG/0.4ML SYRINGE (J1650 PER 10MG) SC SCH (08:45)
[2021-04-27] MEDS: ESCITALOPRAM OXALATE 10 MG TAB (LEXAPRO) PO SCH (08:45)
[2021-04-27] MEDS: LIDOCAINE 5% (LIDODERM) PATCH TD SCH ×2 (08:46)
[2021-04-27] MEDS: PERCOCET 5MG/325MG TAB PO PRN ×3 (08:47→20:26)
[2021-04-27 14:00] VITALS: BP 131/56
[2021-04-27] MEDS ORDERED: MAGNESIUM CITRATE 300 ML BTL PO ONE (14:15)
[2021-04-27] MEDS: SIMVASTATIN 40 MG TAB PO SCH (20:25)
[2021-04-27] MEDS: **NOTE PATIENT COMMENT** MISC XX SCH ×2 (20:27)
[2021-04-28] VITALS (11 sets, daily range): BP systolic 121–145; BP diastolic 55–98
[2021-04-28] MEDS: D5W/0.45% SODIUM CHLORIDE 1,000 ML IV SCH (05:12)
[2021-04-28] MEDS: SODIUM CHLORIDE 0.9% INJ 10 ML SYR IV SCH ×2 (05:13→18:45)
[2021-04-28] MEDS ORDERED: LIDOCAINE 2% 100MG/5ML SDV (FOR ANES.) As Ordered ONE ×2 (08:53→09:41)
[2021-04-28] MEDS ORDERED: ROCURONIUM BROMIDE 50 MG/5 ML VIAL As Ordered ONE ×2 (08:53→10:50)
[2021-04-28] MEDS ORDERED: MIDAZOLAM INJ 2MG/2ML VIAL (J2250 PER 1MG) As Ordered ONE (08:53)
[2021-04-28] MEDS ORDERED: propofoL 200 MG/20 ML VIAL As Ordered ONE (08:53)
[2021-04-28] MEDS ORDERED: fentaNYL 100 MCG/2 ML INJECTION As Ordered ONE ×2 (08:53→11:31)
[2021-04-28] MEDS ORDERED: dexameTHASONE 4 MG/ML 1ML VIAL (J1100 PER 1MG) As Ordered ONE (08:54)
[2021-04-28] MEDS ORDERED: ONDANSETRON 4MG/2ML VIAL As Ordered ONE (08:54)
[2021-04-28] MEDS ORDERED: LIDOCAINE W/EPINEPHRINE 1% 20ML VIAL As Ordered ONE (10:04)
[2021-04-28] MEDS ORDERED: CIPROFLOXACIN/D5W 400 MG/200 ML BAG (J0744) As Ordered ONE (10:04)
[2021-04-28] MEDS ORDERED: BUPIVACAINE HCL 0.25% 10ML VIAL As Ordered ONE (10:04)
[2021-04-28] MEDS ORDERED: metroNIDAZOLE/NACL 500MG(5MG/ML) 100ML BAG (S0030) As Ordered ONE (10:05)
[2021-04-28] MEDS ORDERED: VASOPRESSIN INJ 20 UNITS/ML VIAL As Ordered ONE (10:20)
[2021-04-28] MEDS ORDERED: PHENYLephrine 500MCG 5ML (100MCG/ML) SYRINGE As Ordered ONE (10:33)
[2021-04-28] MEDS ORDERED: ePHEDrine SULFATE 25 MG/5 ML(5MG/ML) SYRINGE As Ordered ONE (11:26)
[2021-04-28] MEDS ORDERED: KETOROLAC 60MG 2ML VIAL As Ordered ONE (11:55)
[2021-04-28] MEDS ORDERED: ACETAMINOPHEN 1000MG 100ML IV BTL (OFIRMEV) (J0131 PER 10MG) As Ordered ONE (11:56)
[2021-04-28] MEDS ORDERED: BUPIVACAINE LIPOSOME/PF 1.3% 20ML VIAL (13.3MG/ML)(EXPAREL)(C9290 PER1MG) As Ordered ONE (11:57)
[2021-04-28] MEDS ORDERED: METOCLOPRAMIDE INJ 10MG/2ML VIAL (J2765 PER 1) As Ordered ONE (12:37)
[2021-04-28] MEDS ORDERED: oxyCODONE 5MG TAB PO PRN (13:50)
[2021-04-28] MEDS ORDERED: LR 1,000 ML IV SCH (13:50)
[2021-04-28] MEDS ORDERED: METOCLOPRAMIDE INJ 10MG/2ML VIAL (J2765 PER 1) IV PRN (13:50)
[2021-04-28] MEDS ORDERED: fentaNYL 100 MCG/2 ML INJECTION IV PRN (13:50)
[2021-04-28] MEDS ORDERED: ONDANSETRON 4MG/2ML VIAL IV PRN (13:50)
[2021-04-28] MEDS ORDERED: HYDROMORPHONE HCL 0.5 MG/ 0.5 ML SYRINGE (J1170 PER 1) IV PRN (13:50)
[2021-04-28] MEDS: ESCITALOPRAM OXALATE 10 MG TAB (LEXAPRO) PO SCH (14:08)
[2021-04-28] MEDS: LIDOCAINE 5% (LIDODERM) PATCH TD SCH ×2 (14:10→14:22)
[2021-04-28] MEDS: MORPHINE 4 MG/ML 1ML VIAL/SYRINGE (J2270) IV PRN (16:50)
[2021-04-28] MEDS: KETOROLAC 30 MG/ML 1ML VIAL IV SCH (18:44)
[2021-04-28] MEDS: SIMVASTATIN 40 MG TAB PO SCH (20:44)
[2021-04-28] MEDS: PERCOCET 5MG/325MG TAB PO PRN (20:45)
[2021-04-28] MEDS: **NOTE PATIENT COMMENT** MISC XX SCH ×2 (21:40)
[2021-04-29] VITALS (7 sets, daily range): BP systolic 108–163; BP diastolic 56–77
[2021-04-29] MEDS: D5W/0.45% SODIUM CHLORIDE 1,000 ML IV SCH (00:01)
[2021-04-29] MEDS: PERCOCET 5MG/325MG TAB PO PRN ×3 (03:37→21:36)
[2021-04-29] MEDS: SODIUM CHLORIDE 0.9% INJ 10 ML SYR IV SCH ×2 (05:43→18:08)
[2021-04-29] MEDS: KETOROLAC 30 MG/ML 1ML VIAL IV SCH ×5 (05:44→23:50)
[2021-04-29] MEDS: LIDOCAINE 5% (LIDODERM) PATCH TD SCH ×2 (08:11→08:12)
[2021-04-29] MEDS: ESCITALOPRAM OXALATE 10 MG TAB (LEXAPRO) PO SCH (08:11)
[2021-04-29] MEDS ORDERED: PERCOCET 5MG/325MG TAB PO ONE (08:30)
[2021-04-29 09:16] LABS: BASO # 0.1 10^3/uL (0.0-0.2); BASO % 0.6 % (0.0-1.0); EOS % 0.1 % (0.0-3.0); HEMATOCRIT 33.2 % (36.0-47.0); HEMOGLOBIN 10.7 g/dl (12.0-15.5); LYMPH # 1.9 10^3/uL (1.5-5.0); LYMPH % 18.5 % (24.0-44.0); MEAN CORPUSCULAR HEMOGLOBIN 30.7 pg (27.0-33.0); MEAN CORPUSCULAR HGB CONC 32.2 g/dl (32.0-36.5); MEAN CORPUSCULAR VOLUME 95.1 fl (80.0-96.0); MONO # 0.6 10^3/uL (0.0-0.8); MONO % 5.6 % (2.0-8.0); NEUTROPHILS # 7.7 10^3/uL (1.5-8.5); NEUTROPHILS % 74.8 % (36.0-66.0); PLATELET COUNT, AUTOMATED 370 10^3/uL (150-450); RED BLOOD COUNT 3.49 10^6/uL (4.00-5.40); WHITE BLOOD COUNT 10.3 10^3/uL (4.0-10.0)
[2021-04-29 09:34] LABS: ERYTHROCYTE SEDIMENTATION RATE 58 mm/hr (0-30)
[2021-04-29 09:38] LABS: BLOOD UREA NITROGEN 12 MG/DL (7-18); C REACTIVE PROTEIN QUANTITATIV 0.82 MG/DL (0.00-0.30); CALCIUM LEVEL 9.2 MG/DL (8.5-10.1); CARBON DIOXIDE LEVEL 27 MEQ/L (21-32); CHLORIDE LEVEL 104 MEQ/L (98-107); CREATININE FOR GFR 0.84 MG/DL (0.55-1.30); GLOMERULAR FILTRATION RATE > 60.0 (>51); GLUCOSE, FASTING 74 MG/DL (70-100); MAGNESIUM LEVEL 2.1 MG/DL (1.8-2.4); NT-PRO BNP 1040 PG/ML (<125); POTASSIUM SERUM 4.1 MEQ/L (3.5-5.1); SODIUM LEVEL 137 MEQ/L (136-145)
[2021-04-29] MEDS: SODIUM CHLORIDE 0.9% INJ 10 ML SYR IV PRN ×2 (11:52→23:51)
[2021-04-29] MEDS: **NOTE PATIENT COMMENT** MISC XX SCH ×2 (21:00)
[2021-04-29] MEDS: SIMVASTATIN 40 MG TAB PO SCH (21:35)
[2021-04-29] MEDS: ACETAMINOPHEN TAB 650MG DOSE (2X325MG) PO PRN (23:50)
[2021-04-30 04:55] VITALS: BP 103/59
[2021-04-30] MEDS: PERCOCET 5MG/325MG TAB PO PRN ×4 (05:05→23:46)
[2021-04-30] MEDS: SODIUM CHLORIDE 0.9% INJ 10 ML SYR IV SCH ×2 (06:21→18:18)
[2021-04-30] MEDS: KETOROLAC 30 MG/ML 1ML VIAL IV SCH ×4 (06:21→23:45)
[2021-04-30 06:43] LABS: BASO % 0.2 % (0.0-1.0); EOS % 0.1 % (0.0-3.0); HEMATOCRIT 32.5 % (36.0-47.0); HEMOGLOBIN 10.4 g/dl (12.0-15.5); LYMPH # 0.5 10^3/uL (1.5-5.0); LYMPH % 2.9 % (24.0-44.0); MEAN CORPUSCULAR HEMOGLOBIN 30.2 pg (27.0-33.0); MEAN CORPUSCULAR VOLUME 94.5 fl (80.0-96.0); MONO # 0.6 10^3/uL (0.0-0.8); MONO % 3.2 % (2.0-8.0); NEUTROPHILS # 16.8 10^3/uL (1.5-8.5); NEUTROPHILS % 92.8 % (36.0-66.0); PLATELET COUNT, AUTOMATED 323 10^3/uL (150-450); RED BLOOD COUNT 3.44 10^6/uL (4.00-5.40); WHITE BLOOD COUNT 18.1 10^3/uL (4.0-10.0)
[2021-04-30 07:05] LABS: BLOOD UREA NITROGEN 11 MG/DL (7-18); CALCIUM LEVEL 8.8 MG/DL (8.5-10.1); CARBON DIOXIDE LEVEL 26 MEQ/L (21-32); CHLORIDE LEVEL 105 MEQ/L (98-107); CREATININE FOR GFR 0.67 MG/DL (0.55-1.30); GLOMERULAR FILTRATION RATE > 60.0 (>51); GLUCOSE, FASTING 93 MG/DL (70-100); POTASSIUM SERUM 3.5 MEQ/L (3.5-5.1); SODIUM LEVEL 139 MEQ/L (136-145)
[2021-04-30] MEDS ORDERED: ENOXAPARIN 40MG/0.4ML SYRINGE (J1650 PER 10MG) SC ONE (08:05)
[2021-04-30 08:50] LABS: ERYTHROCYTE SEDIMENTATION RATE 67 mm/hr (0-30)
[2021-04-30] MEDS: LIDOCAINE 5% (LIDODERM) PATCH TD SCH ×2 (08:58→08:59)
[2021-04-30] MEDS: ESCITALOPRAM OXALATE 10 MG TAB (LEXAPRO) PO SCH (08:59)
[2021-04-30] MEDS: PIPERACILLIN/TAZOBACTAM SOD 4.5 GM in D5W MINI-BAG PLUS 50 ML IV SCH ×2 (08:59→17:17)
[2021-04-30 10:00] VITALS: BP 108/63
[2021-04-30 12:00] VITALS: BP 106/64
[2021-04-30] MEDS: MORPHINE 4 MG/ML 1ML VIAL/SYRINGE (J2270) IV PRN ×2 (13:21→18:49)
[2021-04-30 19:36] VITALS: BP 106/66
[2021-04-30] MEDS: SIMVASTATIN 40 MG TAB PO SCH (20:13)
[2021-04-30] MEDS: **NOTE PATIENT COMMENT** MISC XX SCH ×2 (21:00)
[2021-05-01] MEDS: PIPERACILLIN/TAZOBACTAM SOD 4.5 GM in D5W MINI-BAG PLUS 50 ML IV SCH ×2 (01:58→09:44)
[2021-05-01] MEDS: MORPHINE 4 MG/ML 1ML VIAL/SYRINGE (J2270) IV PRN ×4 (01:58→22:04)
[2021-05-01] MEDS: SODIUM CHLORIDE 0.9% INJ 10 ML SYR IV PRN ×2 (03:29→22:04)
[2021-05-01 04:00] VITALS: BP 106/57
[2021-05-01 06:00] VITALS: BP 105/56
[2021-05-01] MEDS: KETOROLAC 30 MG/ML 1ML VIAL IV SCH ×3 (06:32→17:46)
[2021-05-01] MEDS: SODIUM CHLORIDE 0.9% INJ 10 ML SYR IV SCH ×2 (06:33→17:45)
[2021-05-01 06:58] LABS: BASO % 0.2 % (0.0-1.0); HEMATOCRIT 29.9 % (36.0-47.0); HEMOGLOBIN 9.7 g/dl (12.0-15.5); LYMPH # 0.7 10^3/uL (1.5-5.0); MEAN CORPUSCULAR HEMOGLOBIN 30.9 pg (27.0-33.0); MEAN CORPUSCULAR HGB CONC 32.4 g/dl (32.0-36.5); MEAN CORPUSCULAR VOLUME 95.2 fl (80.0-96.0); MONO # 0.5 10^3/uL (0.0-0.8); MONO % 2.4 % (2.0-8.0); NEUTROPHILS # 20.4 10^3/uL (1.5-8.5); NEUTROPHILS % 91.4 % (36.0-66.0); PLATELET COUNT, AUTOMATED 324 10^3/uL (150-450); RED BLOOD COUNT 3.14 10^6/uL (4.00-5.40); WHITE BLOOD COUNT 22.3 10^3/uL (4.0-10.0)
[2021-05-01 07:16] LABS: BLOOD UREA NITROGEN 15 MG/DL (7-18); CARBON DIOXIDE LEVEL 27 MEQ/L (21-32); CHLORIDE LEVEL 103 MEQ/L (98-107); CREATININE FOR GFR 0.77 MG/DL (0.55-1.30); GLOMERULAR FILTRATION RATE > 60.0 (>51); GLUCOSE, FASTING 88 MG/DL (70-100); POTASSIUM SERUM 3.6 MEQ/L (3.5-5.1); SODIUM LEVEL 137 MEQ/L (136-145)
[2021-05-01 08:00] VITALS: BP 101/61
[2021-05-01] MEDS: ENOXAPARIN 40MG/0.4ML SYRINGE (J1650 PER 10MG) SC SCH (09:44)
[2021-05-01] MEDS: LIDOCAINE 5% (LIDODERM) PATCH TD SCH ×2 (09:44)
[2021-05-01] MEDS: GASTROGRAFIN SOLUTION 30ML (Q9963) PO SCH ×2 (09:48→10:27)
[2021-05-01] MEDS ORDERED: ISOVUE-370 76% 100ML VIAL As Ordered ONE (11:38)
[2021-05-01] MEDS: ESCITALOPRAM OXALATE 10 MG TAB (LEXAPRO) PO SCH (12:59)
[2021-05-01 14:00] VITALS: BP 118/69
[2021-05-01] MEDS: SIMVASTATIN 40 MG TAB PO SCH (20:37)
[2021-05-01] MEDS: FIDAXOMICIN 200 MG TAB (DIFICID) PO SCH (20:37)
[2021-05-01] MEDS: **NOTE PATIENT COMMENT** MISC XX SCH ×2 (20:39→20:40)
[2021-05-01] MEDS: PERCOCET 5MG/325MG TAB PO PRN (20:39)
[2021-05-01 22:00] VITALS: BP 118/61
[2021-05-01 22:41] LABS: CLOSTRIDIUM DIFFICILE PCR NEGATIVE (NEGATIVE)
[2021-05-02] MEDS: KETOROLAC 30 MG/ML 1ML VIAL IV SCH ×5 (00:11→23:49)
[2021-05-02] MEDS: SODIUM CHLORIDE 0.9% INJ 10 ML SYR IV PRN ×4 (00:12→23:49)
[2021-05-02 06:00] VITALS: BP 122/57
[2021-05-02] MEDS: SODIUM CHLORIDE 0.9% INJ 10 ML SYR IV SCH ×2 (06:11→16:51)
[2021-05-02 06:34] LABS: BASO % 0.1 % (0.0-1.0); EOS % 0.2 % (0.0-3.0); HEMATOCRIT 28.1 % (36.0-47.0); HEMOGLOBIN 9.2 g/dl (12.0-15.5); LYMPH # 0.6 10^3/uL (1.5-5.0); LYMPH % 3.3 % (24.0-44.0); MEAN CORPUSCULAR HEMOGLOBIN 30.9 pg (27.0-33.0); MEAN CORPUSCULAR HGB CONC 32.7 g/dl (32.0-36.5); MEAN CORPUSCULAR VOLUME 94.3 fl (80.0-96.0); MONO # 0.6 10^3/uL (0.0-0.8); MONO % 3.6 % (2.0-8.0); NEUTROPHILS # 15.2 10^3/uL (1.5-8.5); NEUTROPHILS % 91.2 % (36.0-66.0); PLATELET COUNT, AUTOMATED 348 10^3/uL (150-450); RED BLOOD COUNT 2.98 10^6/uL (4.00-5.40); WHITE BLOOD COUNT 16.7 10^3/uL (4.0-10.0)
[2021-05-02 07:04] LABS: BLOOD UREA NITROGEN 18 MG/DL (7-18); CALCIUM LEVEL 8.6 MG/DL (8.5-10.1); CARBON DIOXIDE LEVEL 28 MEQ/L (21-32); CHLORIDE LEVEL 102 MEQ/L (98-107); CREATININE FOR GFR 0.52 MG/DL (0.55-1.30); GLOMERULAR FILTRATION RATE > 60.0 (>51); GLUCOSE, FASTING 87 MG/DL (70-100); POTASSIUM SERUM 3.5 MEQ/L (3.5-5.1); SODIUM LEVEL 135 MEQ/L (136-145)
[2021-05-02] MEDS: ESCITALOPRAM OXALATE 10 MG TAB (LEXAPRO) PO SCH (08:16)
[2021-05-02] MEDS: FIDAXOMICIN 200 MG TAB (DIFICID) PO SCH ×2 (08:16→20:09)
[2021-05-02] MEDS: LIDOCAINE 5% (LIDODERM) PATCH TD SCH ×2 (08:17)
[2021-05-02] MEDS: ENOXAPARIN 40MG/0.4ML SYRINGE (J1650 PER 10MG) SC SCH (08:17)
[2021-05-02] MEDS: MORPHINE 4 MG/ML 1ML VIAL/SYRINGE (J2270) IV PRN ×4 (08:18→22:40)
[2021-05-02] MEDS ORDERED: CALCIUM CARBONATE 500 MG CHEW U/D PO PRN (10:25)
[2021-05-02] MEDS: FAMOTIDINE 20 MG TAB PO SCH ×2 (12:49→20:08)
[2021-05-02 14:00] VITALS: BP 132/65
[2021-05-02] MEDS: SIMVASTATIN 40 MG TAB PO SCH (20:08)
[2021-05-02] MEDS: PERCOCET 5MG/325MG TAB PO PRN (20:09)
[2021-05-02] MEDS: **NOTE PATIENT COMMENT** MISC XX SCH ×2 (20:10)
[2021-05-02 22:00] VITALS: BP 127/66
[2021-05-03] MEDS: PERCOCET 5MG/325MG TAB PO PRN (02:53)
[2021-05-03 06:00] VITALS: BP 117/61
[2021-05-03] MEDS: SODIUM CHLORIDE 0.9% INJ 10 ML SYR IV SCH (06:25)
[2021-05-03] MEDS: KETOROLAC 30 MG/ML 1ML VIAL IV SCH ×2 (06:26→12:31)
[2021-05-03 06:57] LABS: BASO % 0.2 % (0.0-1.0); EOS # 0.1 10^3/uL (0.0-0.5); EOS % 0.4 % (0.0-3.0); HEMATOCRIT 27.6 % (36.0-47.0); HEMOGLOBIN 8.8 g/dl (12.0-15.5); LYMPH # 0.6 10^3/uL (1.5-5.0); LYMPH % 4.4 % (24.0-44.0); MEAN CORPUSCULAR HGB CONC 31.9 g/dl (32.0-36.5); MEAN CORPUSCULAR VOLUME 94.2 fl (80.0-96.0); MONO # 0.8 10^3/uL (0.0-0.8); MONO % 6.5 % (2.0-8.0); NEUTROPHILS # 11.3 10^3/uL (1.5-8.5); NEUTROPHILS % 87.9 % (36.0-66.0); PLATELET COUNT, AUTOMATED 391 10^3/uL (150-450); RED BLOOD COUNT 2.93 10^6/uL (4.00-5.40); WHITE BLOOD COUNT 12.8 10^3/uL (4.0-10.0)
[2021-05-03 07:29] LABS: BLOOD UREA NITROGEN 15 MG/DL (7-18); CALCIUM LEVEL 8.7 MG/DL (8.5-10.1); CARBON DIOXIDE LEVEL 27 MEQ/L (21-32); CHLORIDE LEVEL 101 MEQ/L (98-107); CREATININE FOR GFR 0.56 MG/DL (0.55-1.30); GLOMERULAR FILTRATION RATE > 60.0 (>51); GLUCOSE, FASTING 91 MG/DL (70-100); POTASSIUM SERUM 3.3 MEQ/L (3.5-5.1); SODIUM LEVEL 134 MEQ/L (136-145)
[2021-05-03] MEDS: ESCITALOPRAM OXALATE 10 MG TAB (LEXAPRO) PO SCH (08:51)
[2021-05-03] MEDS: FAMOTIDINE 20 MG TAB PO SCH (08:51)
[2021-05-03] MEDS: FIDAXOMICIN 200 MG TAB (DIFICID) PO SCH (08:51)
[2021-05-03] MEDS: ENOXAPARIN 40MG/0.4ML SYRINGE (J1650 PER 10MG) SC SCH (08:52)
[2021-05-03] MEDS: LIDOCAINE 5% (LIDODERM) PATCH TD SCH ×2 (08:53)
[2021-05-03] MEDS ORDERED: FIDA200TA PO (08:55)
[2021-05-03] MEDS ORDERED: FAMO20TA PO (12:11)
[2021-05-03] MEDS ORDERED: PERCOCET PO (12:11)
== END 2021-05-03 14:32 | disposition home or self-care (01) | DRG 710 ==
LOC: M ED 10:12 → M ED INP 13:03 → ENRESERV 15:50 → M ICU 18:55 → M PCU 04-19 16:05 → M MSPAV 04-24 14:38
PROVIDERS: ADMIT Internal Medicine; ATTEND Internal Medicine
PROC: 02HV33Z Insertion of Infusion Device into Superior Vena Cava, Percutaneous Approach (ICD-10-PCS; 2021-04-21)
PROC: 0DBH0ZZ Excision of Cecum, Open Approach (ICD-10-PCS; 2021-04-28)
PROC: 0DTJ0ZZ Resection of Appendix, Open Approach (ICD-10-PCS; 2021-04-28)
PROC: 0DNU4ZZ Release Omentum, Percutaneous Endoscopic Approach (ICD-10-PCS; principal; 2021-04-28 09:15)
DX: A41.9 Sepsis, unspecified organism (principal); K65.1 Peritoneal abscess; I95.9 Hypotension, unspecified; I50.32 Chronic diastolic (congestive) heart failure; A04.72 Enterocolitis due to Clostridium difficile, not specified as recurrent; K56.7 Ileus, unspecified; K57.20 Diverticulitis of large intestine with perforation and abscess without bleeding; E83.42 Hypomagnesemia; F41.9 Anxiety disorder, unspecified; F32.A Depression, unspecified; E87.6 Hypokalemia; F10.10 Alcohol abuse, uncomplicated; F12.90 Cannabis use, unspecified, uncomplicated; I71.4 Abdominal aortic aneurysm, without rupture; Z87.891 Personal history of nicotine dependence; Z79.899 Other long term (current) drug therapy; I70.209 Unspecified atherosclerosis of native arteries of extremities, unspecified extremity; K21.9 Gastro-esophageal reflux disease without esophagitis; E53.8 Deficiency of other specified B group vitamins; J45.909 Unspecified asthma, uncomplicated; M19.011 Primary osteoarthritis, right shoulder

== ENCOUNTER 2021-05-16 01:07 | Inpatient (IN) | payer BC ==
[~2021-05-16] VITALS: Ht 152.4 cm; Wt 51.9 kg
[~2021-05-16 01:07] MED LIST changes: +FAMO20TA PO; +FIDA200TA PO; +LEXA1TAB PO; +PERCOCET PO
[2021-05-16] MEDS ORDERED: MORPHINE 2 MG/ML 1ML VIAL IV ONE ×2 (03:45→05:20)
[2021-05-16] MEDS ORDERED: NS 500 ML IV ONE (03:45)
[2021-05-16 04:11] LABS: HEMATOCRIT 26.6 % (36.0-47.0); HEMOGLOBIN 8.6 g/dl (12.0-15.5); MEAN CORPUSCULAR HEMOGLOBIN 29.4 pg (27.0-33.0); MEAN CORPUSCULAR HGB CONC 32.3 g/dl (32.0-36.5); MEAN CORPUSCULAR VOLUME 90.8 fl (80.0-96.0); PLATELET COUNT, AUTOMATED 638 10^3/uL (150-450); RED BLOOD COUNT 2.93 10^6/uL (4.00-5.40); WHITE BLOOD COUNT 11.3 10^3/uL (4.0-10.0)
[2021-05-16 04:49] LABS: ANISOCYTOSIS 1+; ATYPICAL LYMPH 3 % (0-5); LYMPHOCYTES 6 % (16-44); MONOCYTES 12 % (0-5); NEUTROPHILS 69 % (28-66); PLATELET ESTIMATE INCREASED (NORMAL); POLYCHROMASIA 1+
[2021-05-16 05:04] LABS: BLOOD UREA NITROGEN 11 MG/DL (7-18); CALCIUM LEVEL 8.9 MG/DL (8.5-10.1); CARBON DIOXIDE LEVEL 30 MEQ/L (21-32); CHLORIDE LEVEL 92 MEQ/L (98-107); CREATININE FOR GFR 0.78 MG/DL (0.55-1.30); GLOMERULAR FILTRATION RATE > 60.0 (>51); GLUCOSE, FASTING 104 MG/DL (70-100); POTASSIUM SERUM 2.7 MEQ/L (3.5-5.1); SODIUM LEVEL 133 MEQ/L (136-145)
[2021-05-16 05:05] LABS: ALBUMIN 2.4 GM/DL (3.2-5.2); ALT/SGPT 11 U/L (12-78); BILIRUBIN,DIRECT 0.3 MG/DL (0.0-0.2); BILIRUBIN,TOTAL 0.7 MG/DL (0.2-1.0); LIPASE 37 U/L (73-393); TOTAL PROTEIN 7.4 GM/DL (6.4-8.2)
[2021-05-16] MEDS ORDERED: POTASSIUM CHLORIDE 10% LIQ 20 MEQ/15 ML UDC PO ONE (05:05)
[2021-05-16] MEDS ORDERED: KCL 10MEQ/100ML SWI (KRUN) 10 MEQ in IV 1 EA IV ONE (05:05)
[2021-05-16] MEDS ORDERED: ONDANSETRON 4MG/2ML VIAL IV ONE (05:20)
[2021-05-16] MEDS ORDERED: PIPERACILLIN/TAZOBACTAM SOD 4.5 GM in D5W MINI-BAG PLUS 50 ML IV ONE (07:25)
[2021-05-16] MEDS: MORPHINE 2 MG/ML 1ML VIAL IV PRN ×2 (08:31→09:18)
[2021-05-16] MEDS: FAMOTIDINE 20 MG TAB PO SCH ×2 (09:00→20:26)
[2021-05-16] MEDS ORDERED: ESCITALOPRAM OXALATE 10 MG TAB (LEXAPRO) PO SCH (09:00)
[2021-05-16] MEDS ORDERED: FIDAXOMICIN 200 MG TAB (DIFICID) PO SCH (09:00)
[2021-05-16 09:03] LABS: RSV AMPLIFICATION NEGATIVE (NEGATIVE)
[2021-05-16] MEDS ORDERED: FAMO1TAB11 PO (09:12)
[2021-05-16] MEDS ORDERED: OXYC1TAB23 PO (09:12)
[2021-05-16] MEDS ORDERED: LIDO1PAD TOP (09:13)
[2021-05-16] MEDS ORDERED: HOME MED LIST COMPLETE! XX SCH (09:15)
[2021-05-16] MEDS ORDERED: DOCUSATE SODIUM 100MG CAPSULE PO PRN (09:20)
[2021-05-16] MEDS ORDERED: ALBUTEROL 90 MCG/ACT 8GM HFA INHALER INH PRN (09:20)
[2021-05-16] MEDS: KCL 10MEQ/100ML SWI (KRUN) 10 MEQ in IV 1 EA IV SCH ×5 (10:59→18:26)
[2021-05-16] MEDS: NS 1,000 ML IV SCH (10:59)
[2021-05-16] MEDS ORDERED: LIDOCAINE 1% MDV 20ML VIAL As Ordered ONE (11:01)
[2021-05-16 14:45] VITALS: BP 96/57
[2021-05-16] MEDS: PERCOCET 5MG/325MG TAB PO PRN ×2 (15:14→21:51)
[2021-05-16] MEDS: LACTOBACILLUS ACIDOPHILUS CAP (BACID) PO SCH ×2 (15:14→18:02)
[2021-05-16] MEDS: SIMVASTATIN 40 MG TAB PO SCH (15:14)
[2021-05-16] MEDS: PIPERACILLIN/TAZOBACTAM SOD 3.375 GM in D5W MINI-BAG PLUS 50 ML IV SCH ×2 (15:14→20:26)
[2021-05-16] MEDS: LIDOCAINE 5% (LIDODERM) PATCH TOP SCH (15:15)
[2021-05-16] MEDS: KETOROLAC 30 MG/ML 1ML VIAL IV SCH (18:02)
[2021-05-16 18:46] VITALS: BP 104/55
[2021-05-16] MEDS: **NOTE PATIENT COMMENT** MISC XX SCH (20:26)
[2021-05-16 22:00] VITALS: BP 101/56
[2021-05-17] VITALS (7 sets, daily range): BP systolic 92–134; BP diastolic 51–103
[2021-05-17] MEDS: NS 1,000 ML IV SCH ×2 (00:12→16:35)
[2021-05-17] MEDS: KETOROLAC 30 MG/ML 1ML VIAL IV SCH ×3 (01:43→19:04)
[2021-05-17] MEDS: PIPERACILLIN/TAZOBACTAM SOD 3.375 GM in D5W MINI-BAG PLUS 50 ML IV SCH ×4 (02:49→20:13)
[2021-05-17 06:58] LABS: HEMATOCRIT 22.2 % (36.0-47.0); MEAN CORPUSCULAR HEMOGLOBIN 28.8 pg (27.0-33.0); MEAN CORPUSCULAR HGB CONC 31.5 g/dl (32.0-36.5); MEAN CORPUSCULAR VOLUME 91.4 fl (80.0-96.0); PLATELET COUNT, AUTOMATED 465 10^3/uL (150-450); RED BLOOD COUNT 2.43 10^6/uL (4.00-5.40); WHITE BLOOD COUNT 4.1 10^3/uL (4.0-10.0)
[2021-05-17 07:39] LABS: ALBUMIN 1.6 GM/DL (3.2-5.2); ALT/SGPT 11 U/L (12-78); BILIRUBIN,TOTAL 0.5 MG/DL (0.2-1.0); BLOOD UREA NITROGEN 13 MG/DL (7-18); CALCIUM LEVEL 8.4 MG/DL (8.5-10.1); CARBON DIOXIDE LEVEL 29 MEQ/L (21-32); CHLORIDE LEVEL 104 MEQ/L (98-107); CREATININE FOR GFR 0.55 MG/DL (0.55-1.30); GLOMERULAR FILTRATION RATE > 60.0 (>51); GLUCOSE, FASTING 70 MG/DL (70-100); POTASSIUM SERUM 2.4 MEQ/L (3.5-5.1); SODIUM LEVEL 142 MEQ/L (136-145); TOTAL PROTEIN 5.9 GM/DL (6.4-8.2)
[2021-05-17] MEDS ORDERED: POTASSIUM CHLORIDE 10MEQ SR TABLET PO ONE (07:55)
[2021-05-17] MEDS ORDERED: KCL 20MEQ IN 0.45NS 1000ML 1,000 ML IV SCH (07:55)
[2021-05-17] MEDS ORDERED: KCL 20MEQ in NS 1000ML 1,000 ML IV SCH (07:55)
[2021-05-17] MEDS ORDERED: POTASSIUM CHLORIDE 10MEQ SR TABLET PO SCH (08:00)
[2021-05-17] MEDS: SIMVASTATIN 40 MG TAB PO SCH (08:23)
[2021-05-17] MEDS: POTASSIUM CHLORIDE 10% LIQ 20 MEQ/15 ML UDC PO SCH ×3 (08:23→10:37)
[2021-05-17] MEDS: LACTOBACILLUS ACIDOPHILUS CAP (BACID) PO SCH ×2 (08:23→19:04)
[2021-05-17] MEDS: FAMOTIDINE 20 MG TAB PO SCH ×2 (08:23→20:13)
[2021-05-17] MEDS: LIDOCAINE 5% (LIDODERM) PATCH TOP SCH (08:24)
[2021-05-17 09:04] LABS: FERRITIN 442 NG/ML (8-252); IRON (FE) 42 UG/DL (50-170); PERCENT SATURATION 36.8 % (13.2-45.0); TOTAL IRON BINDING CAPACITY 114 UG/DL (250-450)
[2021-05-17 09:14] LABS: BLOOD UREA NITROGEN 13 MG/DL (7-18); CALCIUM LEVEL 8.6 MG/DL (8.5-10.1); CARBON DIOXIDE LEVEL 31 MEQ/L (21-32); CHLORIDE LEVEL 105 MEQ/L (98-107); CREATININE FOR GFR 0.56 MG/DL (0.55-1.30); GLOMERULAR FILTRATION RATE > 60.0 (>51); GLUCOSE, FASTING 71 MG/DL (70-100); POTASSIUM SERUM 2.6 MEQ/L (3.5-5.1); SODIUM LEVEL 141 MEQ/L (136-145)
[2021-05-17] MEDS ORDERED: ROCURONIUM BROMIDE 50 MG/5 ML VIAL As Ordered ONE ×3 (12:45→13:58)
[2021-05-17] MEDS ORDERED: ONDANSETRON 4MG/2ML VIAL As Ordered ONE (12:47)
[2021-05-17] MEDS ORDERED: HYDROmorphone HCL 2MG/ML 1ML VIAL As Ordered ONE (12:47)
[2021-05-17] MEDS ORDERED: propofoL 200 MG/20 ML VIAL As Ordered ONE (12:47)
[2021-05-17] MEDS ORDERED: ETOMIDATE INJ 20MG/10ML VIAL As Ordered ONE (12:47)
[2021-05-17] MEDS ORDERED: fentaNYL 100 MCG/2 ML INJECTION As Ordered ONE ×2 (12:47→16:04)
[2021-05-17] MEDS ORDERED: dexameTHASONE 4 MG/ML 1ML VIAL (J1100 PER 1MG) As Ordered ONE (12:47)
[2021-05-17] MEDS ORDERED: MIDAZOLAM INJ 2MG/2ML VIAL (J2250 PER 1MG) As Ordered ONE (12:47)
[2021-05-17] MEDS ORDERED: LIDOCAINE 2% 100MG/5ML SDV (FOR ANES.) As Ordered ONE (12:47)
[2021-05-17] MEDS ORDERED: ePHEDrine SULFATE 25 MG/5 ML(5MG/ML) SYRINGE As Ordered ONE (13:21)
[2021-05-17] MEDS ORDERED: SUGAMMADEX SODIUM 500 MG/5 ML VIAL (BRIDION) As Ordered ONE (15:12)
[2021-05-17] MEDS ORDERED: BUPIVACAINE HCL 0.25% 10ML VIAL As Ordered ONE (15:20)
[2021-05-17] MEDS ORDERED: BUPIVACAINE LIPOSOME/PF 1.3% 20ML VIAL (13.3MG/ML)(EXPAREL) As Ordered ONE (15:20)
[2021-05-17] MEDS ORDERED: ACETAMINOPHEN 1000MG 100ML IV BTL (OFIRMEV) (J0131 PER 10MG) As Ordered ONE ×2 (15:24→17:05)
[2021-05-17] MEDS ORDERED: EPIDURAL/PCA KEYS XX PRN (15:40)
[2021-05-17] MEDS ORDERED: NALOXONE INJ 0.4MG/1ML VIAL (J2310 PER 1MG) IV PRN (15:40)
[2021-05-17] MEDS: MORPHINE 1MG/ML IN 0.9% NACL 100ML IV BAG IV PRN (16:19)
[2021-05-17] MEDS ORDERED: ePHEDrine SULFATE 25 MG/5 ML(5MG/ML) SYRINGE IV PRN (16:30)
[2021-05-17] MEDS ORDERED: NS 1,000 ML IV SCH (16:30)
[2021-05-17] MEDS ORDERED: ONDANSETRON 4MG/2ML VIAL IV PRN (16:30)
[2021-05-17] MEDS: fentaNYL 100 MCG/2 ML INJECTION IV PRN ×4 (16:34→16:50)
[2021-05-17] MEDS: KCL 40MEQ in NS 1000ML 1,000 ML IV SCH (17:41)
[2021-05-17 18:54] LABS: HEMATOCRIT 34.6 % (36.0-47.0); MEAN CORPUSCULAR HEMOGLOBIN 29.2 pg (27.0-33.0); MEAN CORPUSCULAR HGB CONC 31.5 g/dl (32.0-36.5); MEAN CORPUSCULAR VOLUME 92.8 fl (80.0-96.0); PLATELET COUNT, AUTOMATED 555 10^3/uL (150-450); RED BLOOD COUNT 3.73 10^6/uL (4.00-5.40); WHITE BLOOD COUNT 10.1 10^3/uL (4.0-10.0)
[2021-05-17 19:02] LABS: HEMOGLOBIN 10.9 g/dl (12.0-15.5)
[2021-05-17 19:19] LABS: BLOOD UREA NITROGEN 14 MG/DL (7-18); CALCIUM LEVEL 8.4 MG/DL (8.5-10.1); CARBON DIOXIDE LEVEL 25 MEQ/L (21-32); CHLORIDE LEVEL 108 MEQ/L (98-107); CREATININE FOR GFR 0.52 MG/DL (0.55-1.30); GLOMERULAR FILTRATION RATE > 60.0 (>51); GLUCOSE, FASTING 108 MG/DL (70-100); POTASSIUM SERUM 3.6 MEQ/L (3.5-5.1); SODIUM LEVEL 141 MEQ/L (136-145)
[2021-05-17] MEDS: **NOTE PATIENT COMMENT** MISC XX SCH (20:14)
[2021-05-18] MEDS: NS 1,000 ML IV SCH (01:41)
[2021-05-18] MEDS: KCL 40MEQ in NS 1000ML 1,000 ML IV SCH ×3 (01:43→15:28)
[2021-05-18] MEDS: PIPERACILLIN/TAZOBACTAM SOD 3.375 GM in D5W MINI-BAG PLUS 50 ML IV SCH (01:47)
[2021-05-18 02:00] VITALS: BP 121/75
[2021-05-18] MEDS: KETOROLAC 30 MG/ML 1ML VIAL IV SCH ×3 (04:01→18:45)
[2021-05-18] MEDS: MORPHINE 1MG/ML IN 0.9% NACL 100ML IV BAG IV PRN (04:31)
[2021-05-18 06:28] LABS: HEMATOCRIT 28.8 % (36.0-47.0); HEMOGLOBIN 9.1 g/dl (12.0-15.5); MEAN CORPUSCULAR HEMOGLOBIN 29.4 pg (27.0-33.0); MEAN CORPUSCULAR HGB CONC 31.6 g/dl (32.0-36.5); MEAN CORPUSCULAR VOLUME 92.9 fl (80.0-96.0); PLATELET COUNT, AUTOMATED 464 10^3/uL (150-450); WHITE BLOOD COUNT 9.9 10^3/uL (4.0-10.0)
[2021-05-18 06:49] LABS: ALBUMIN 1.8 GM/DL (3.2-5.2); ALT/SGPT 16 U/L (12-78); BILIRUBIN,TOTAL 0.4 MG/DL (0.2-1.0); BLOOD UREA NITROGEN 11 MG/DL (7-18); CARBON DIOXIDE LEVEL 27 MEQ/L (21-32); CHLORIDE LEVEL 111 MEQ/L (98-107); CREATININE FOR GFR 0.54 MG/DL (0.55-1.30); GLOMERULAR FILTRATION RATE > 60.0 (>51); GLUCOSE, FASTING 92 MG/DL (70-100); POTASSIUM SERUM 4.2 MEQ/L (3.5-5.1); SODIUM LEVEL 142 MEQ/L (136-145); TOTAL PROTEIN 6.1 GM/DL (6.4-8.2)
[2021-05-18] MEDS ORDERED: LIDOCAINE 1% MDV 20ML VIAL As Ordered ONE (08:01)
[2021-05-18 10:00] VITALS: BP 112/69
[2021-05-18] MEDS: MEROPENEM INJ 1 GM in IV 1 EA IV SCH ×2 (10:07→18:44)
[2021-05-18] MEDS: LIDOCAINE 5% (LIDODERM) PATCH TOP SCH (10:07)
[2021-05-18] MEDS: FAMOTIDINE 20 MG TAB PO SCH ×2 (10:08→20:33)
[2021-05-18] MEDS: LACTOBACILLUS ACIDOPHILUS CAP (BACID) PO SCH ×2 (10:08→18:45)
[2021-05-18] MEDS: SIMVASTATIN 40 MG TAB PO SCH (10:08)
[2021-05-18] MEDS: GASTROGRAFIN SOLUTION 30ML PO SCH ×2 (10:09→10:10)
[2021-05-18] MEDS ORDERED: ISOVUE-370 76% 100ML VIAL As Ordered ONE (10:26)
[2021-05-18 14:00] VITALS: BP 112/67
[2021-05-18] MEDS: HumaLOG INSULIN (NovoLOG) PER UNIT SC SCH (18:00)
[2021-05-18] MEDS ORDERED: FAT EMULSION IV 20% 500 ML IV SCH (18:00)
[2021-05-18] MEDS ORDERED: AMINO AC/ELECTROLYTE/DEX/CALC 2,000 ML IV SCH (18:00)
[2021-05-18] MEDS: SODIUM CHLORIDE 0.9% INJ 10 ML SYR IV SCH (19:08)
[2021-05-18] MEDS: **NOTE PATIENT COMMENT** MISC XX SCH (20:33)
[2021-05-18 22:00] VITALS: BP 110/65
[2021-05-19] VITALS (7 sets, daily range): BP systolic 114–130; BP diastolic 51–88; O2SAT 94
[2021-05-19] MEDS: MORPHINE 1MG/ML IN 0.9% NACL 100ML IV BAG IV PRN ×2 (00:16→15:15)
[2021-05-19] MEDS: KETOROLAC 30 MG/ML 1ML VIAL IV SCH ×3 (02:09→18:16)
[2021-05-19] MEDS: MEROPENEM INJ 1 GM in IV 1 EA IV SCH (02:11)
[2021-05-19] MEDS: SODIUM CHLORIDE 0.9% INJ 10 ML SYR IV SCH ×2 (05:09→18:15)
[2021-05-19 06:14] LABS: HEMATOCRIT 29.5 % (36.0-47.0); HEMOGLOBIN 9.3 g/dl (12.0-15.5); MEAN CORPUSCULAR HEMOGLOBIN 29.5 pg (27.0-33.0); MEAN CORPUSCULAR HGB CONC 31.5 g/dl (32.0-36.5); MEAN CORPUSCULAR VOLUME 93.7 fl (80.0-96.0); PLATELET COUNT, AUTOMATED 478 10^3/uL (150-450); RED BLOOD COUNT 3.15 10^6/uL (4.00-5.40); WHITE BLOOD COUNT 13.4 10^3/uL (4.0-10.0)
[2021-05-19 06:35] LABS: ALBUMIN 1.8 GM/DL (3.2-5.2); ALT/SGPT 10 U/L (12-78); BILIRUBIN,TOTAL 0.2 MG/DL (0.2-1.0); BLOOD UREA NITROGEN 8 MG/DL (7-18); CALCIUM LEVEL 8.1 MG/DL (8.5-10.1); CARBON DIOXIDE LEVEL 27 MEQ/L (21-32); CHLORIDE LEVEL 110 MEQ/L (98-107); CREATININE FOR GFR 0.38 MG/DL (0.55-1.30); GLOMERULAR FILTRATION RATE > 60.0 (>51); GLUCOSE, FASTING 111 MG/DL (70-100); POTASSIUM SERUM 4.6 MEQ/L (3.5-5.1); SODIUM LEVEL 142 MEQ/L (136-145); TOTAL PROTEIN 5.7 GM/DL (6.4-8.2)
[2021-05-19] MEDS: HumaLOG INSULIN (NovoLOG) PER UNIT SC SCH ×3 (06:51→12:00)
[2021-05-19] MEDS: LACTOBACILLUS ACIDOPHILUS CAP (BACID) PO SCH ×2 (09:42→18:13)
[2021-05-19] MEDS: FAMOTIDINE 20 MG TAB PO SCH ×2 (09:42→22:14)
[2021-05-19] MEDS: ESCITALOPRAM OXALATE 10 MG TAB (LEXAPRO) PO SCH (09:42)
[2021-05-19] MEDS: SIMVASTATIN 40 MG TAB PO SCH (09:43)
[2021-05-19] MEDS: ENOXAPARIN 40MG/0.4ML SYRINGE (J1650 PER 10MG) SC SCH (09:43)
[2021-05-19] MEDS: LIDOCAINE 5% (LIDODERM) PATCH TOP SCH (09:44)
[2021-05-19] MEDS: LevoFLOXacin IV 500 MG in IV 1 EA IV SCH (09:49)
[2021-05-19] MEDS: NS 1,000 ML IV SCH (22:14)
[2021-05-19] MEDS: **NOTE PATIENT COMMENT** MISC XX SCH (22:15)
[2021-05-20] VITALS (7 sets, daily range): BP systolic 102–129; BP diastolic 65–92; O2SAT 93–94
[2021-05-20] MEDS: KETOROLAC 30 MG/ML 1ML VIAL IV SCH ×3 (02:02→17:21)
[2021-05-20] MEDS: SODIUM CHLORIDE 0.9% INJ 10 ML SYR IV SCH ×2 (05:29→17:20)
[2021-05-20] MEDS: MORPHINE 1MG/ML IN 0.9% NACL 100ML IV BAG IV PRN (05:31)
[2021-05-20] MEDS: SODIUM CHLORIDE 0.9% INJ 10 ML SYR IV PRN (07:46)
[2021-05-20 07:58] LABS: HEMATOCRIT 29.5 % (36.0-47.0); HEMOGLOBIN 9.3 g/dl (12.0-15.5); MEAN CORPUSCULAR HEMOGLOBIN 29.5 pg (27.0-33.0); MEAN CORPUSCULAR HGB CONC 31.5 g/dl (32.0-36.5); MEAN CORPUSCULAR VOLUME 93.7 fl (80.0-96.0); PLATELET COUNT, AUTOMATED 433 10^3/uL (150-450); RED BLOOD COUNT 3.15 10^6/uL (4.00-5.40); WHITE BLOOD COUNT 9.4 10^3/uL (4.0-10.0)
[2021-05-20 08:20] LABS: ALBUMIN 1.9 GM/DL (3.2-5.2); ALT/SGPT 14 U/L (12-78); BILIRUBIN,TOTAL 0.3 MG/DL (0.2-1.0); BLOOD UREA NITROGEN 7 MG/DL (7-18); CALCIUM LEVEL 8.5 MG/DL (8.5-10.1); CARBON DIOXIDE LEVEL 28 MEQ/L (21-32); CHLORIDE LEVEL 107 MEQ/L (98-107); CREATININE FOR GFR 0.35 MG/DL (0.55-1.30); GLOMERULAR FILTRATION RATE > 60.0 (>51); GLUCOSE, FASTING 84 MG/DL (70-100); POTASSIUM SERUM 4.8 MEQ/L (3.5-5.1); SODIUM LEVEL 138 MEQ/L (136-145); TOTAL PROTEIN 6.3 GM/DL (6.4-8.2)
[2021-05-20] MEDS: LevoFLOXacin IV 500 MG in IV 1 EA IV SCH (09:06)
[2021-05-20] MEDS: ESCITALOPRAM OXALATE 10 MG TAB (LEXAPRO) PO SCH (09:06)
[2021-05-20] MEDS: LACTOBACILLUS ACIDOPHILUS CAP (BACID) PO SCH ×2 (09:06→17:19)
[2021-05-20] MEDS: ENOXAPARIN 40MG/0.4ML SYRINGE (J1650 PER 10MG) SC SCH (09:07)
[2021-05-20] MEDS: FAMOTIDINE 20 MG TAB PO SCH ×2 (09:07→20:58)
[2021-05-20] MEDS: SIMVASTATIN 40 MG TAB PO SCH (09:07)
[2021-05-20] MEDS: LIDOCAINE 5% (LIDODERM) PATCH TOP SCH (09:08)
[2021-05-20] MEDS ORDERED: AMINO AC/ELECTROLYTE/DEX/CALC 2,000 ML IV SCH (18:00)
[2021-05-20] MEDS ORDERED: FAT EMULSION IV 20% 500 ML IV SCH (18:00)
[2021-05-20] MEDS ORDERED: HumaLOG INSULIN (NovoLOG) PER UNIT SC SCH (18:00)
[2021-05-20] MEDS: **NOTE PATIENT COMMENT** MISC XX SCH (20:58)
[2021-05-21] VITALS (7 sets, daily range): BP systolic 111–125; BP diastolic 59–65; O2SAT 94
[2021-05-21] MEDS: KETOROLAC 30 MG/ML 1ML VIAL IV SCH ×2 (02:26→10:12)
[2021-05-21] MEDS: SODIUM CHLORIDE 0.9% INJ 10 ML SYR IV PRN (02:27)
[2021-05-21] MEDS: NS 1,000 ML IV SCH ×2 (03:32→16:28)
[2021-05-21] MEDS: SODIUM CHLORIDE 0.9% INJ 10 ML SYR IV SCH ×2 (06:20→17:53)
[2021-05-21 06:35] LABS: HEMOGLOBIN 8.9 g/dl (12.0-15.5); MEAN CORPUSCULAR HEMOGLOBIN 29.9 pg (27.0-33.0); MEAN CORPUSCULAR HGB CONC 31.8 g/dl (32.0-36.5); PLATELET COUNT, AUTOMATED 420 10^3/uL (150-450); RED BLOOD COUNT 2.98 10^6/uL (4.00-5.40); WHITE BLOOD COUNT 7.7 10^3/uL (4.0-10.0)
[2021-05-21 06:58] LABS: ALBUMIN 1.8 GM/DL (3.2-5.2); ALT/SGPT 11 U/L (12-78); BILIRUBIN,TOTAL 0.2 MG/DL (0.2-1.0); BLOOD UREA NITROGEN 8 MG/DL (7-18); CALCIUM LEVEL 8.7 MG/DL (8.5-10.1); CARBON DIOXIDE LEVEL 28 MEQ/L (21-32); CHLORIDE LEVEL 105 MEQ/L (98-107); GLOMERULAR FILTRATION RATE > 60.0 (>51); GLUCOSE, FASTING 95 MG/DL (70-100); SODIUM LEVEL 138 MEQ/L (136-145); TOTAL PROTEIN 5.8 GM/DL (6.4-8.2)
[2021-05-21] MEDS: FAMOTIDINE 20 MG TAB PO SCH ×2 (08:14→21:39)
[2021-05-21] MEDS: LACTOBACILLUS ACIDOPHILUS CAP (BACID) PO SCH ×2 (08:14→17:52)
[2021-05-21] MEDS: SIMVASTATIN 40 MG TAB PO SCH (08:14)
[2021-05-21] MEDS: ESCITALOPRAM OXALATE 10 MG TAB (LEXAPRO) PO SCH (08:14)
[2021-05-21] MEDS: LIDOCAINE 5% (LIDODERM) PATCH TOP SCH (08:15)
[2021-05-21] MEDS: ENOXAPARIN 40MG/0.4ML SYRINGE (J1650 PER 10MG) SC SCH (08:15)
[2021-05-21] MEDS: LevoFLOXacin IV 500 MG in IV 1 EA IV SCH (08:15)
[2021-05-21] MEDS: MORPHINE 1MG/ML IN 0.9% NACL 100ML IV BAG IV PRN (16:28)
[2021-05-21] MEDS: HumaLOG INSULIN (NovoLOG) PER UNIT SC SCH (17:53)
[2021-05-21] MEDS ORDERED: AMINO AC/ELECTROLYTE/DEX/CALC 2,000 ML IV SCH (18:00)
[2021-05-21] MEDS ORDERED: FAT EMULSION IV 20% 500 ML IV SCH (18:00)
[2021-05-21] MEDS: **NOTE PATIENT COMMENT** MISC XX SCH (21:39)
[2021-05-22 06:00] VITALS: BP 110/66
[2021-05-22] MEDS: HumaLOG INSULIN (NovoLOG) PER UNIT SC SCH ×5 (06:00→23:34)
[2021-05-22 06:21] LABS: HEMATOCRIT 27.1 % (36.0-47.0); HEMOGLOBIN 8.7 g/dl (12.0-15.5); MEAN CORPUSCULAR HEMOGLOBIN 29.7 pg (27.0-33.0); MEAN CORPUSCULAR HGB CONC 32.1 g/dl (32.0-36.5); MEAN CORPUSCULAR VOLUME 92.5 fl (80.0-96.0); PLATELET COUNT, AUTOMATED 395 10^3/uL (150-450); RED BLOOD COUNT 2.93 10^6/uL (4.00-5.40); WHITE BLOOD COUNT 9.3 10^3/uL (4.0-10.0)
[2021-05-22] MEDS: SODIUM CHLORIDE 0.9% INJ 10 ML SYR IV SCH ×2 (06:39→18:44)
[2021-05-22 06:48] LABS: ALBUMIN 1.6 GM/DL (3.2-5.2); ALT/SGPT 8 U/L (12-78); BILIRUBIN,TOTAL 0.2 MG/DL (0.2-1.0); BLOOD UREA NITROGEN 10 MG/DL (7-18); CALCIUM LEVEL 8.8 MG/DL (8.5-10.1); CARBON DIOXIDE LEVEL 31 MEQ/L (21-32); CHLORIDE LEVEL 107 MEQ/L (98-107); CREATININE FOR GFR 0.39 MG/DL (0.55-1.30); GLOMERULAR FILTRATION RATE > 60.0 (>51); GLUCOSE, FASTING 110 MG/DL (70-100); POTASSIUM SERUM 4.5 MEQ/L (3.5-5.1); SODIUM LEVEL 141 MEQ/L (136-145); TOTAL PROTEIN 6.2 GM/DL (6.4-8.2)
[2021-05-22] MEDS: LACTOBACILLUS ACIDOPHILUS CAP (BACID) PO SCH ×2 (09:12→18:43)
[2021-05-22] MEDS: FAMOTIDINE 20 MG TAB PO SCH ×2 (09:12→21:08)
[2021-05-22] MEDS: ESCITALOPRAM OXALATE 10 MG TAB (LEXAPRO) PO SCH (09:12)
[2021-05-22] MEDS: SIMVASTATIN 40 MG TAB PO SCH (09:12)
[2021-05-22] MEDS: LIDOCAINE 5% (LIDODERM) PATCH TOP SCH (09:13)
[2021-05-22] MEDS: LevoFLOXacin IV 500 MG in IV 1 EA IV SCH (09:13)
[2021-05-22] MEDS: ENOXAPARIN 40MG/0.4ML SYRINGE (J1650 PER 10MG) SC SCH (09:22)
[2021-05-22 10:00] VITALS: BP 109/55
[2021-05-22 13:09] VITALS: O2SAT 91
[2021-05-22 14:00] VITALS: BP 111/71
[2021-05-22] MEDS: NS 1,000 ML IV SCH (15:40)
[2021-05-22 18:00] VITALS: BP 109/59
[2021-05-22] MEDS ORDERED: FAT EMULSION IV 20% 500 ML IV SCH (18:00)
[2021-05-22] MEDS ORDERED: AMINO AC/ELECTROLYTE/DEX/CALC 2,000 ML IV SCH (18:00)
[2021-05-22] MEDS: **NOTE PATIENT COMMENT** MISC XX SCH (21:10)
[2021-05-23] VITALS (9 sets, daily range): BP systolic 103–124; BP diastolic 56–68; O2SAT 93–95
[2021-05-23] MEDS: MORPHINE 1MG/ML IN 0.9% NACL 100ML IV BAG IV PRN (03:44)
[2021-05-23] MEDS: SODIUM CHLORIDE 0.9% INJ 10 ML SYR IV SCH ×2 (05:10→18:04)
[2021-05-23] MEDS: HumaLOG INSULIN (NovoLOG) PER UNIT SC SCH ×2 (05:16→14:43)
[2021-05-23 06:20] LABS: HEMOGLOBIN 8.2 g/dl (12.0-15.5); MEAN CORPUSCULAR HEMOGLOBIN 29.5 pg (27.0-33.0); MEAN CORPUSCULAR HGB CONC 31.5 g/dl (32.0-36.5); MEAN CORPUSCULAR VOLUME 93.5 fl (80.0-96.0); PLATELET COUNT, AUTOMATED 370 10^3/uL (150-450); RED BLOOD COUNT 2.78 10^6/uL (4.00-5.40)
[2021-05-23 06:53] LABS: ALBUMIN 1.6 GM/DL (3.2-5.2); ALT/SGPT 9 U/L (12-78); BILIRUBIN,TOTAL 0.5 MG/DL (0.2-1.0); BLOOD UREA NITROGEN 9 MG/DL (7-18); CALCIUM LEVEL 8.3 MG/DL (8.5-10.1); CARBON DIOXIDE LEVEL 33 MEQ/L (21-32); CHLORIDE LEVEL 102 MEQ/L (98-107); CREATININE FOR GFR 0.41 MG/DL (0.55-1.30); GLOMERULAR FILTRATION RATE > 60.0 (>51); GLUCOSE, FASTING 95 MG/DL (70-100); POTASSIUM SERUM 4.1 MEQ/L (3.5-5.1); SODIUM LEVEL 139 MEQ/L (136-145); TOTAL PROTEIN 5.6 GM/DL (6.4-8.2)
[2021-05-23] MEDS: LevoFLOXacin IV 500 MG in IV 1 EA IV SCH (08:19)
[2021-05-23] MEDS: SIMVASTATIN 40 MG TAB PO SCH (08:19)
[2021-05-23] MEDS: LACTOBACILLUS ACIDOPHILUS CAP (BACID) PO SCH ×2 (08:19→17:45)
[2021-05-23] MEDS: FAMOTIDINE 20 MG TAB PO SCH ×2 (08:19→20:42)
[2021-05-23] MEDS: ESCITALOPRAM OXALATE 10 MG TAB (LEXAPRO) PO SCH (08:20)
[2021-05-23] MEDS: LIDOCAINE 5% (LIDODERM) PATCH TOP SCH (08:21)
[2021-05-23] MEDS: ENOXAPARIN 40MG/0.4ML SYRINGE (J1650 PER 10MG) SC SCH (08:21)
[2021-05-23] MEDS ORDERED: CLOPIDOGREL 75 MG TAB PO SCH (09:00)
[2021-05-23] MEDS: NS 1,000 ML IV SCH (14:44)
[2021-05-23] MEDS ORDERED: AMINO AC/ELECTROLYTE/DEX/CALC 2,000 ML IV SCH (18:00)
[2021-05-23] MEDS ORDERED: FAT EMULSION IV 20% 500 ML IV SCH (18:00)
[2021-05-23] MEDS: **NOTE PATIENT COMMENT** MISC XX SCH (20:43)
[2021-05-23] MEDS: AMPICILLIN SOD/SULBACTAM SOD 3 GM in D5W MINI-BAG PLUS 100 ML IV SCH (22:53)
[2021-05-24] MEDS: MORPHINE 1MG/ML IN 0.9% NACL 100ML IV BAG IV PRN (00:55)
[2021-05-24 02:00] VITALS: BP 125/57
[2021-05-24] MEDS: AMPICILLIN SOD/SULBACTAM SOD 3 GM in D5W MINI-BAG PLUS 100 ML IV SCH ×4 (03:32→21:02)
[2021-05-24] MEDS: NS 1,000 ML IV SCH (03:34)
[2021-05-24] MEDS: SODIUM CHLORIDE 0.9% INJ 10 ML SYR IV SCH ×2 (05:03→17:36)
[2021-05-24 05:15] VITALS: BP 107/56
[2021-05-24 07:04] LABS: BASO % 0.4 % (0.0-1.0); EOS # 0.3 10^3/uL (0.0-0.5); EOS % 3.4 % (0.0-3.0); HEMATOCRIT 25.5 % (36.0-47.0); HEMOGLOBIN 8.1 g/dl (12.0-15.5); LYMPH % 12.7 % (24.0-44.0); MEAN CORPUSCULAR HEMOGLOBIN 29.2 pg (27.0-33.0); MEAN CORPUSCULAR HGB CONC 31.8 g/dl (32.0-36.5); MEAN CORPUSCULAR VOLUME 92.1 fl (80.0-96.0); MONO # 0.4 10^3/uL (0.0-0.8); MONO % 4.7 % (2.0-8.0); NEUTROPHILS # 6.2 10^3/uL (1.5-8.5); PLATELET COUNT, AUTOMATED 327 10^3/uL (150-450); RED BLOOD COUNT 2.77 10^6/uL (4.00-5.40); WHITE BLOOD COUNT 7.9 10^3/uL (4.0-10.0)
[2021-05-24 07:33] LABS: BLOOD UREA NITROGEN 18 MG/DL (7-18); CALCIUM LEVEL 8.4 MG/DL (8.5-10.1); CARBON DIOXIDE LEVEL 32 MEQ/L (21-32); CHLORIDE LEVEL 99 MEQ/L (98-107); CREATININE FOR GFR 0.49 MG/DL (0.55-1.30); GLOMERULAR FILTRATION RATE > 60.0 (>51); GLUCOSE, FASTING 115 MG/DL (70-100); POTASSIUM SERUM 4.4 MEQ/L (3.5-5.1); SODIUM LEVEL 137 MEQ/L (136-145)
[2021-05-24 09:30] VITALS: O2SAT 95
[2021-05-24] MEDS: ESCITALOPRAM OXALATE 10 MG TAB (LEXAPRO) PO SCH (09:30)
[2021-05-24] MEDS: SIMVASTATIN 40 MG TAB PO SCH (09:30)
[2021-05-24] MEDS: FAMOTIDINE 20 MG TAB PO SCH ×2 (09:30→21:00)
[2021-05-24] MEDS: VANCOMYCIN ORAL SOL 250MG/5ML ORAL SYRINGE PO SCH ×2 (09:30→21:00)
[2021-05-24] MEDS: LACTOBACILLUS ACIDOPHILUS CAP (BACID) PO SCH ×2 (09:30→17:28)
[2021-05-24] MEDS: ENOXAPARIN 40MG/0.4ML SYRINGE (J1650 PER 10MG) SC SCH (09:31)
[2021-05-24] MEDS: LIDOCAINE 5% (LIDODERM) PATCH TOP SCH (09:31)
[2021-05-24] MEDS: SODIUM CHLORIDE 0.9% INJ 10 ML SYR IV PRN (11:09)
[2021-05-24 14:00] VITALS: BP 130/64
[2021-05-24 18:00] VITALS: BP 129/64
[2021-05-24] MEDS ORDERED: AMINO AC/ELECTROLYTE/DEX/CALC 2,000 ML IV SCH (18:00)
[2021-05-24] MEDS ORDERED: FAT EMULSION IV 20% 500 ML IV SCH (18:00)
[2021-05-24] MEDS: **NOTE PATIENT COMMENT** MISC XX SCH (21:01)
[2021-05-24 22:00] VITALS: BP 125/64
[2021-05-25] VITALS (8 sets, daily range): BP systolic 115–124; BP diastolic 61–65; O2SAT 95
[2021-05-25] MEDS: AMPICILLIN SOD/SULBACTAM SOD 3 GM in D5W MINI-BAG PLUS 100 ML IV SCH ×4 (03:47→22:57)
[2021-05-25] MEDS: SODIUM CHLORIDE 0.9% INJ 10 ML SYR IV SCH ×2 (05:17→18:34)
[2021-05-25 06:49] LABS: BASO % 0.4 % (0.0-1.0); EOS # 0.2 10^3/uL (0.0-0.5); EOS % 3.1 % (0.0-3.0); HEMATOCRIT 25.3 % (36.0-47.0); LYMPH % 13.5 % (24.0-44.0); MEAN CORPUSCULAR HEMOGLOBIN 29.6 pg (27.0-33.0); MEAN CORPUSCULAR HGB CONC 31.6 g/dl (32.0-36.5); MEAN CORPUSCULAR VOLUME 93.7 fl (80.0-96.0); MONO # 0.4 10^3/uL (0.0-0.8); MONO % 6.3 % (2.0-8.0); NEUTROPHILS # 5.3 10^3/uL (1.5-8.5); PLATELET COUNT, AUTOMATED 344 10^3/uL (150-450)
[2021-05-25 07:20] LABS: BLOOD UREA NITROGEN 13 MG/DL (7-18); CALCIUM LEVEL 8.8 MG/DL (8.5-10.1); CARBON DIOXIDE LEVEL 35 MEQ/L (21-32); CHLORIDE LEVEL 97 MEQ/L (98-107); CREATININE FOR GFR 0.45 MG/DL (0.55-1.30); GLOMERULAR FILTRATION RATE > 60.0 (>51); GLUCOSE, FASTING 96 MG/DL (70-100); POTASSIUM SERUM 4.4 MEQ/L (3.5-5.1); SODIUM LEVEL 136 MEQ/L (136-145)
[2021-05-25] MEDS: SIMVASTATIN 40 MG TAB PO SCH (10:08)
[2021-05-25] MEDS: LIDOCAINE 5% (LIDODERM) PATCH TOP SCH (10:08)
[2021-05-25] MEDS: ESCITALOPRAM OXALATE 10 MG TAB (LEXAPRO) PO SCH (10:08)
[2021-05-25] MEDS: FAMOTIDINE 20 MG TAB PO SCH ×2 (10:08→21:22)
[2021-05-25] MEDS: VANCOMYCIN ORAL SOL 250MG/5ML ORAL SYRINGE PO SCH ×2 (10:08→21:22)
[2021-05-25] MEDS: ENOXAPARIN 40MG/0.4ML SYRINGE (J1650 PER 10MG) SC SCH (10:09)
[2021-05-25] MEDS: LACTOBACILLUS ACIDOPHILUS CAP (BACID) PO SCH ×2 (10:10→17:18)
[2021-05-25] MEDS ORDERED: AMINO AC/ELECTROLYTE/DEX/CALC 2,000 ML IV SCH (18:00)
[2021-05-25] MEDS ORDERED: FAT EMULSION IV 20% 500 ML IV SCH (18:00)
[2021-05-25] MEDS: NS 1,000 ML IV SCH (18:13)
[2021-05-25] MEDS: MORPHINE 1MG/ML IN 0.9% NACL 100ML IV BAG IV PRN (18:14)
[2021-05-25] MEDS: **NOTE PATIENT COMMENT** MISC XX SCH (21:22)
[2021-05-25] MEDS: SODIUM CHLORIDE 0.9% INJ 10 ML SYR IV PRN (23:42)
[2021-05-26 00:46] VITALS: O2SAT 94
[2021-05-26 02:00] VITALS: BP 122/66
[2021-05-26] MEDS: AMPICILLIN SOD/SULBACTAM SOD 3 GM in D5W MINI-BAG PLUS 100 ML IV SCH ×4 (04:03→21:00)
[2021-05-26] MEDS: SODIUM CHLORIDE 0.9% INJ 10 ML SYR IV SCH ×2 (05:06→18:53)
[2021-05-26 06:00] VITALS: BP 121/66
[2021-05-26 07:46] LABS: BASO % 0.6 % (0.0-1.0); EOS # 0.2 10^3/uL (0.0-0.5); EOS % 3.7 % (0.0-3.0); HEMOGLOBIN 9.3 g/dl (12.0-15.5); LYMPH # 1.1 10^3/uL (1.5-5.0); LYMPH % 17.2 % (24.0-44.0); MEAN CORPUSCULAR HEMOGLOBIN 29.9 pg (27.0-33.0); MEAN CORPUSCULAR HGB CONC 32.1 g/dl (32.0-36.5); MEAN CORPUSCULAR VOLUME 93.2 fl (80.0-96.0); MONO # 0.4 10^3/uL (0.0-0.8); MONO % 6.3 % (2.0-8.0); NEUTROPHILS # 4.7 10^3/uL (1.5-8.5); NEUTROPHILS % 71.7 % (36.0-66.0); PLATELET COUNT, AUTOMATED 377 10^3/uL (150-450); RED BLOOD COUNT 3.11 10^6/uL (4.00-5.40); WHITE BLOOD COUNT 6.6 10^3/uL (4.0-10.0)
[2021-05-26 08:04] LABS: BLOOD UREA NITROGEN 15 MG/DL (7-18); CALCIUM LEVEL 9.5 MG/DL (8.5-10.1); CARBON DIOXIDE LEVEL 35 MEQ/L (21-32); CHLORIDE LEVEL 97 MEQ/L (98-107); CREATININE FOR GFR 0.52 MG/DL (0.55-1.30); GLOMERULAR FILTRATION RATE > 60.0 (>51); GLUCOSE, FASTING 100 MG/DL (70-100); POTASSIUM SERUM 3.9 MEQ/L (3.5-5.1); SODIUM LEVEL 137 MEQ/L (136-145)
[2021-05-26 09:00] VITALS: O2SAT 95
[2021-05-26] MEDS: LACTOBACILLUS ACIDOPHILUS CAP (BACID) PO SCH ×2 (09:29→19:01)
[2021-05-26] MEDS: FAMOTIDINE 20 MG TAB PO SCH ×2 (09:30→20:45)
[2021-05-26] MEDS: ESCITALOPRAM OXALATE 10 MG TAB (LEXAPRO) PO SCH (09:30)
[2021-05-26] MEDS: SIMVASTATIN 40 MG TAB PO SCH (09:30)
[2021-05-26] MEDS: LIDOCAINE 5% (LIDODERM) PATCH TOP SCH (09:34)
[2021-05-26] MEDS: ENOXAPARIN 40MG/0.4ML SYRINGE (J1650 PER 10MG) SC SCH (09:35)
[2021-05-26] MEDS: VANCOMYCIN ORAL SOL 250MG/5ML ORAL SYRINGE PO SCH ×2 (09:35→20:45)
[2021-05-26 14:00] VITALS: BP 96/60
[2021-05-26] MEDS ORDERED: FAT EMULSION IV 20% 500 ML IV SCH (18:00)
[2021-05-26] MEDS ORDERED: MULTIVITAMIN -ADULT INJECTION 10 ML, ZINC/COPPER/MANGANESE/SELENIUM 1 ML in AMINO AC/EL... IV SCH (18:00)
[2021-05-26] MEDS: PERCOCET 5MG/325MG TAB PO PRN ×3 (18:58→23:57)
[2021-05-26] MEDS: **NOTE PATIENT COMMENT** MISC XX SCH (20:47)
[2021-05-26 21:17] VITALS: BP 105/52
[2021-05-27] MEDS: AMPICILLIN SOD/SULBACTAM SOD 3 GM in D5W MINI-BAG PLUS 100 ML IV SCH ×4 (04:06→21:19)
[2021-05-27 04:57] VITALS: BP 104/52
[2021-05-27] MEDS: SODIUM CHLORIDE 0.9% INJ 10 ML SYR IV SCH ×2 (05:29→17:08)
[2021-05-27 06:49] LABS: BASO # 0.1 10^3/uL (0.0-0.2); BASO % 1.3 % (0.0-1.0); EOS # 0.2 10^3/uL (0.0-0.5); EOS % 4.9 % (0.0-3.0); HEMATOCRIT 27.3 % (36.0-47.0); HEMOGLOBIN 8.8 g/dl (12.0-15.5); LYMPH # 0.7 10^3/uL (1.5-5.0); LYMPH % 19.2 % (24.0-44.0); MEAN CORPUSCULAR HEMOGLOBIN 30.2 pg (27.0-33.0); MEAN CORPUSCULAR HGB CONC 32.2 g/dl (32.0-36.5); MEAN CORPUSCULAR VOLUME 93.8 fl (80.0-96.0); MONO # 0.4 10^3/uL (0.0-0.8); MONO % 10.4 % (2.0-8.0); NEUTROPHILS # 2.5 10^3/uL (1.5-8.5); NEUTROPHILS % 63.4 % (36.0-66.0); RED BLOOD COUNT 2.91 10^6/uL (4.00-5.40); WHITE BLOOD COUNT 3.9 10^3/uL (4.0-10.0)
[2021-05-27 07:17] LABS: BLOOD UREA NITROGEN 20 MG/DL (7-18); CALCIUM LEVEL 9.1 MG/DL (8.5-10.1); CARBON DIOXIDE LEVEL 33 MEQ/L (21-32); CHLORIDE LEVEL 98 MEQ/L (98-107); CREATININE FOR GFR 0.56 MG/DL (0.55-1.30); GLOMERULAR FILTRATION RATE > 60.0 (>51); GLUCOSE, FASTING 92 MG/DL (70-100); POTASSIUM SERUM 4.7 MEQ/L (3.5-5.1); SODIUM LEVEL 138 MEQ/L (136-145)
[2021-05-27] MEDS: LACTOBACILLUS ACIDOPHILUS CAP (BACID) PO SCH ×2 (09:10→17:06)
[2021-05-27] MEDS: VANCOMYCIN ORAL SOL 250MG/5ML ORAL SYRINGE PO SCH ×2 (09:11→21:15)
[2021-05-27] MEDS: ESCITALOPRAM OXALATE 10 MG TAB (LEXAPRO) PO SCH (09:11)
[2021-05-27] MEDS: ENOXAPARIN 40MG/0.4ML SYRINGE (J1650 PER 10MG) SC SCH (09:11)
[2021-05-27] MEDS: SIMVASTATIN 40 MG TAB PO SCH (09:11)
[2021-05-27] MEDS: FAMOTIDINE 20 MG TAB PO SCH ×2 (09:11→21:17)
[2021-05-27] MEDS: LIDOCAINE 5% (LIDODERM) PATCH TOP SCH (09:11)
[2021-05-27] MEDS: PERCOCET 5MG/325MG TAB PO PRN ×3 (09:13→21:18)
[2021-05-27 09:24] VITALS: BP 124/62
[2021-05-27 14:00] VITALS: BP 103/58
[2021-05-27] MEDS ORDERED: AMINO AC/ELECTROLYTE/DEX/CALC 2,000 ML IV SCH (18:00)
[2021-05-27] MEDS ORDERED: FAT EMULSION IV 20% 500 ML IV SCH (18:00)
[2021-05-27] MEDS: **NOTE PATIENT COMMENT** MISC XX SCH (21:15)
[2021-05-27 22:00] VITALS: BP 133/73
[2021-05-28] MEDS: PERCOCET 5MG/325MG TAB PO PRN ×4 (03:50→21:52)
[2021-05-28] MEDS: AMPICILLIN SOD/SULBACTAM SOD 3 GM in D5W MINI-BAG PLUS 100 ML IV SCH ×4 (03:51→21:51)
[2021-05-28] MEDS: SODIUM CHLORIDE 0.9% INJ 10 ML SYR IV SCH ×2 (05:13→17:25)
[2021-05-28 06:00] VITALS: BP 114/60
[2021-05-28 07:01] LABS: BASO # 0.1 10^3/uL (0.0-0.2); BASO % 1.3 % (0.0-1.0); EOS # 0.3 10^3/uL (0.0-0.5); EOS % 4.6 % (0.0-3.0); HEMATOCRIT 27.4 % (36.0-47.0); HEMOGLOBIN 8.7 g/dl (12.0-15.5); LYMPH % 15.7 % (24.0-44.0); MEAN CORPUSCULAR HEMOGLOBIN 29.5 pg (27.0-33.0); MEAN CORPUSCULAR HGB CONC 31.8 g/dl (32.0-36.5); MEAN CORPUSCULAR VOLUME 92.9 fl (80.0-96.0); MONO # 0.6 10^3/uL (0.0-0.8); MONO % 10.2 % (2.0-8.0); NEUTROPHILS # 4.1 10^3/uL (1.5-8.5); NEUTROPHILS % 67.9 % (36.0-66.0); PLATELET COUNT, AUTOMATED 389 10^3/uL (150-450); RED BLOOD COUNT 2.95 10^6/uL (4.00-5.40); WHITE BLOOD COUNT 6.1 10^3/uL (4.0-10.0)
[2021-05-28 07:28] LABS: ERYTHROCYTE SEDIMENTATION RATE 125 mm/hr (0-30)
[2021-05-28 07:32] LABS: ALBUMIN 2.3 GM/DL (3.2-5.2); ALT/SGPT 37 U/L (12-78); BILIRUBIN,TOTAL 0.3 MG/DL (0.2-1.0); BLOOD UREA NITROGEN 24 MG/DL (7-18); C REACTIVE PROTEIN QUANTITATIV 2.91 MG/DL (0.00-0.30); CALCIUM LEVEL 8.9 MG/DL (8.5-10.1); CARBON DIOXIDE LEVEL 30 MEQ/L (21-32); CHLORIDE LEVEL 101 MEQ/L (98-107); CREATININE FOR GFR 0.69 MG/DL (0.55-1.30); GLOMERULAR FILTRATION RATE > 60.0 (>51); GLUCOSE, FASTING 91 MG/DL (70-100); POTASSIUM SERUM 4.4 MEQ/L (3.5-5.1); SODIUM LEVEL 137 MEQ/L (136-145); TOTAL PROTEIN 7.3 GM/DL (6.4-8.2)
[2021-05-28] MEDS: SIMVASTATIN 40 MG TAB PO SCH (09:07)
[2021-05-28] MEDS: ENOXAPARIN 40MG/0.4ML SYRINGE (J1650 PER 10MG) SC SCH (09:07)
[2021-05-28] MEDS: ESCITALOPRAM OXALATE 10 MG TAB (LEXAPRO) PO SCH (09:07)
[2021-05-28] MEDS: FAMOTIDINE 20 MG TAB PO SCH ×2 (09:07→21:50)
[2021-05-28] MEDS: LACTOBACILLUS ACIDOPHILUS CAP (BACID) PO SCH ×2 (09:07→17:23)
[2021-05-28] MEDS: VANCOMYCIN ORAL SOL 250MG/5ML ORAL SYRINGE PO SCH ×2 (09:07→21:51)
[2021-05-28] MEDS: LIDOCAINE 5% (LIDODERM) PATCH TOP SCH (09:08)
[2021-05-28] MEDS: SODIUM CHLORIDE 0.9% INJ 10 ML SYR IV PRN (10:47)
[2021-05-28 14:00] VITALS: BP 126/75
[2021-05-28 18:00] VITALS: BP 124/74
[2021-05-28] MEDS ORDERED: FAT EMULSION IV 20% 500 ML IV SCH (18:00)
[2021-05-28] MEDS ORDERED: AMINO AC/ELECTROLYTE/DEX/CALC 2,000 ML IV SCH (18:00)
[2021-05-28] MEDS: **NOTE PATIENT COMMENT** MISC XX SCH (22:37)
[2021-05-29] MEDS: AMPICILLIN SOD/SULBACTAM SOD 3 GM in D5W MINI-BAG PLUS 100 ML IV SCH ×3 (04:05→16:35)
[2021-05-29] MEDS: SODIUM CHLORIDE 0.9% INJ 10 ML SYR IV SCH ×2 (05:26→17:44)
[2021-05-29 05:52] VITALS: BP 105/59
[2021-05-29 07:06] LABS: BASO # 0.1 10^3/uL (0.0-0.2); BASO % 1.4 % (0.0-1.0); EOS # 0.2 10^3/uL (0.0-0.5); EOS % 4.2 % (0.0-3.0); HEMATOCRIT 26.2 % (36.0-47.0); HEMOGLOBIN 8.2 g/dl (12.0-15.5); LYMPH % 19.4 % (24.0-44.0); MEAN CORPUSCULAR HEMOGLOBIN 29.6 pg (27.0-33.0); MEAN CORPUSCULAR HGB CONC 31.3 g/dl (32.0-36.5); MEAN CORPUSCULAR VOLUME 94.6 fl (80.0-96.0); MONO # 0.6 10^3/uL (0.0-0.8); MONO % 11.3 % (2.0-8.0); NEUTROPHILS # 3.2 10^3/uL (1.5-8.5); NEUTROPHILS % 63.3 % (36.0-66.0); PLATELET COUNT, AUTOMATED 380 10^3/uL (150-450); RED BLOOD COUNT 2.77 10^6/uL (4.00-5.40); WHITE BLOOD COUNT 5.1 10^3/uL (4.0-10.0)
[2021-05-29 07:20] LABS: BLOOD UREA NITROGEN 27 MG/DL (7-18); CALCIUM LEVEL 8.8 MG/DL (8.5-10.1); CARBON DIOXIDE LEVEL 26 MEQ/L (21-32); CHLORIDE LEVEL 104 MEQ/L (98-107); CREATININE FOR GFR 0.62 MG/DL (0.55-1.30); GLOMERULAR FILTRATION RATE > 60.0 (>51); GLUCOSE, FASTING 95 MG/DL (70-100); POTASSIUM SERUM 4.1 MEQ/L (3.5-5.1); SODIUM LEVEL 135 MEQ/L (136-145)
[2021-05-29] MEDS: LIDOCAINE 5% (LIDODERM) PATCH TOP SCH (08:32)
[2021-05-29] MEDS: VANCOMYCIN ORAL SOL 250MG/5ML ORAL SYRINGE PO SCH ×2 (08:33→21:22)
[2021-05-29] MEDS: LACTOBACILLUS ACIDOPHILUS CAP (BACID) PO SCH ×2 (08:34→17:43)
[2021-05-29] MEDS: SIMVASTATIN 40 MG TAB PO SCH (08:34)
[2021-05-29] MEDS: ENOXAPARIN 40MG/0.4ML SYRINGE (J1650 PER 10MG) SC SCH (08:34)
[2021-05-29] MEDS: ESCITALOPRAM OXALATE 10 MG TAB (LEXAPRO) PO SCH (08:34)
[2021-05-29] MEDS: FAMOTIDINE 20 MG TAB PO SCH ×2 (08:35→21:22)
[2021-05-29] MEDS: GASTROGRAFIN SOLUTION 30ML PO SCH ×2 (08:35→08:57)
[2021-05-29] MEDS ORDERED: ISOVUE-370 76% 100ML VIAL As Ordered ONE (09:08)
[2021-05-29] MEDS: PERCOCET 5MG/325MG TAB PO PRN ×2 (09:22→21:23)
[2021-05-29] MEDS: SODIUM CHLORIDE 0.9% INJ 10 ML SYR IV PRN (11:25)
[2021-05-29 14:00] VITALS: BP 124/62
[2021-05-29 20:50] VITALS: BP 123/61
[2021-05-29] MEDS: LOMOTIL 2.5MG/0.025MG TABLET PO SCH (21:22)
[2021-05-29] MEDS: **NOTE PATIENT COMMENT** MISC XX SCH (21:24)
[2021-05-30 04:25] VITALS: BP 111/62
[2021-05-30] MEDS: SODIUM CHLORIDE 0.9% INJ 10 ML SYR IV SCH (05:14)
[2021-05-30] MEDS ORDERED: LevoFLOXacin 750 MG TABLET PO SCH (06:00)
[2021-05-30 07:27] LABS: BASO # 0.1 10^3/uL (0.0-0.2); BASO % 1.7 % (0.0-1.0); EOS # 0.1 10^3/uL (0.0-0.5); EOS % 3.1 % (0.0-3.0); HEMATOCRIT 30.3 % (36.0-47.0); HEMOGLOBIN 9.4 g/dl (12.0-15.5); LYMPH # 1.2 10^3/uL (1.5-5.0); LYMPH % 27.4 % (24.0-44.0); MEAN CORPUSCULAR HEMOGLOBIN 29.3 pg (27.0-33.0); MEAN CORPUSCULAR VOLUME 94.4 fl (80.0-96.0); MONO # 0.4 10^3/uL (0.0-0.8); MONO % 8.5 % (2.0-8.0); NEUTROPHILS # 2.5 10^3/uL (1.5-8.5); NEUTROPHILS % 58.6 % (36.0-66.0); PLATELET COUNT, AUTOMATED 397 10^3/uL (150-450); RED BLOOD COUNT 3.21 10^6/uL (4.00-5.40); WHITE BLOOD COUNT 4.2 10^3/uL (4.0-10.0)
[2021-05-30 07:52] LABS: BLOOD UREA NITROGEN 20 MG/DL (7-18); CALCIUM LEVEL 9.1 MG/DL (8.5-10.1); CARBON DIOXIDE LEVEL 29 MEQ/L (21-32); CHLORIDE LEVEL 104 MEQ/L (98-107); CREATININE FOR GFR 0.64 MG/DL (0.55-1.30); GLOMERULAR FILTRATION RATE > 60.0 (>51); GLUCOSE, FASTING 87 MG/DL (70-100); POTASSIUM SERUM 3.8 MEQ/L (3.5-5.1); SODIUM LEVEL 137 MEQ/L (136-145)
[2021-05-30] MEDS: LIDOCAINE 5% (LIDODERM) PATCH TOP SCH (08:48)
[2021-05-30] MEDS: VANCOMYCIN ORAL SOL 250MG/5ML ORAL SYRINGE PO SCH (08:48)
[2021-05-30] MEDS: LOMOTIL 2.5MG/0.025MG TABLET PO SCH ×2 (08:49→12:53)
[2021-05-30] MEDS: LACTOBACILLUS ACIDOPHILUS CAP (BACID) PO SCH (08:49)
[2021-05-30] MEDS: FAMOTIDINE 20 MG TAB PO SCH (08:49)
[2021-05-30] MEDS: ENOXAPARIN 40MG/0.4ML SYRINGE (J1650 PER 10MG) SC SCH (08:49)
[2021-05-30] MEDS: SIMVASTATIN 40 MG TAB PO SCH (08:49)
[2021-05-30] MEDS: ESCITALOPRAM OXALATE 10 MG TAB (LEXAPRO) PO SCH (08:50)
[2021-05-30] MEDS: PERCOCET 5MG/325MG TAB PO PRN (10:33)
[2021-05-30] MEDS ORDERED: FIRV50SO PO (10:46)
[2021-05-30] MEDS ORDERED: LEVO750T13 PO (10:46)
[2021-05-30] MEDS ORDERED: RISATAB3 PO (10:46)
[2021-05-30 14:00] VITALS: BP 132/65
== END 2021-05-30 17:03 | disposition home health service (06) | DRG 221 ==
LOC: M ED 01:07 → M ED INP 09:20 → ENRESERV 12:09 → M MSPAV 13:59
PROVIDERS: ADMIT Internal Medicine; ATTEND Internal Medicine
PROC: 0DB80ZZ Excision of Small Intestine, Open Approach (ICD-10-PCS; 2021-05-17)
PROC: 0D180Z4 Bypass Small Intestine to Cutaneous, Open Approach (ICD-10-PCS; 2021-05-17)
PROC: 0DN80ZZ Release Small Intestine, Open Approach (ICD-10-PCS; 2021-05-17)
PROC: 0W9J30Z Drainage of Pelvic Cavity with Drainage Device, Percutaneous Approach (ICD-10-PCS; 2021-05-17)
PROC: 02HV33Z Insertion of Infusion Device into Superior Vena Cava, Percutaneous Approach (ICD-10-PCS; principal; 2021-05-18 09:00)
DX: K65.1 Peritoneal abscess (principal); K63.1 Perforation of intestine (nontraumatic); I74.5 Embolism and thrombosis of iliac artery; I50.32 Chronic diastolic (congestive) heart failure; E46 Unspecified protein-calorie malnutrition; K56.7 Ileus, unspecified; G62.9 Polyneuropathy, unspecified; I73.9 Peripheral vascular disease, unspecified; F41.9 Anxiety disorder, unspecified; F32.A Depression, unspecified; D64.9 Anemia, unspecified; E87.6 Hypokalemia; F12.90 Cannabis use, unspecified, uncomplicated; J45.909 Unspecified asthma, uncomplicated; Z87.891 Personal history of nicotine dependence; F10.10 Alcohol abuse, uncomplicated; E55.9 Vitamin D deficiency, unspecified; Z95.828 Presence of other vascular implants and grafts; Z20.822 Contact with and (suspected) exposure to COVID-19; Z79.899 Other long term (current) drug therapy; B96.1 Klebsiella pneumoniae [K. pneumoniae] as the cause of diseases classified elsewhere; B95.2 Enterococcus as the cause of diseases classified elsewhere

== ENCOUNTER 2021-06-12 18:12 | Inpatient (IN) | payer BC ==
[~2021-06-12] VITALS: Ht 152.4 cm; Wt 52.1 kg
[~2021-06-12 18:12] MED LIST changes: +FAMO1TAB11 PO; +FIRV50SO PO; +LIDO1PAD TOP; +RISATAB3 PO
[2021-06-12] MEDS ORDERED: NS 1,000 ML IV ONE (19:45)
[2021-06-12] MEDS ORDERED: NS IV ONE (19:45)
[2021-06-12 20:00] LABS: ALBUMIN 2.8 GM/DL (3.2-5.2); ALT/SGPT 14 U/L (12-78); BILIRUBIN,DIRECT 0.1 MG/DL (0.0-0.2); BILIRUBIN,TOTAL 0.2 MG/DL (0.2-1.0); BLOOD UREA NITROGEN 17 MG/DL (7-18); CALCIUM LEVEL 8.6 MG/DL (8.5-10.1); CARBON DIOXIDE LEVEL 25 MEQ/L (21-32); CHLORIDE LEVEL 105 MEQ/L (98-107); CREATININE FOR GFR 0.79 MG/DL (0.55-1.30); GLOMERULAR FILTRATION RATE > 60.0 (>51); GLUCOSE, FASTING 86 MG/DL (70-100); LIPASE 278 U/L (73-393); POTASSIUM SERUM 3.8 MEQ/L (3.5-5.1); SODIUM LEVEL 135 MEQ/L (136-145); TOTAL PROTEIN 7.2 GM/DL (6.4-8.2)
[2021-06-12 20:04] LABS: BASO % 0.3 % (0.0-1.0); EOS # 0.5 10^3/uL (0.0-0.5); HEMATOCRIT 27.8 % (36.0-47.0); HEMOGLOBIN 8.7 g/dl (12.0-15.5); LYMPH # 1.8 10^3/uL (1.5-5.0); LYMPH % 15.3 % (24.0-44.0); MEAN CORPUSCULAR HEMOGLOBIN 29.4 pg (27.0-33.0); MEAN CORPUSCULAR HGB CONC 31.3 g/dl (32.0-36.5); MEAN CORPUSCULAR VOLUME 93.9 fl (80.0-96.0); MONO # 0.6 10^3/uL (0.0-0.8); MONO % 5.3 % (2.0-8.0); NEUTROPHILS # 8.8 10^3/uL (1.5-8.5); NEUTROPHILS % 74.6 % (36.0-66.0); PLATELET COUNT, AUTOMATED 382 10^3/uL (150-450); RED BLOOD COUNT 2.96 10^6/uL (4.00-5.40); WHITE BLOOD COUNT 11.8 10^3/uL (4.0-10.0)
[2021-06-12] MEDS: GASTROGRAFIN SOLUTION 30ML PO SCH ×2 (20:18→20:50)
[2021-06-12] MEDS ORDERED: ISOVUE-370 76% 100ML VIAL As Ordered ONE (21:45)
[2021-06-13] MEDS ORDERED: LevoFLOXacin IV 750 MG in IV 1 EA IV ONE ×2
[2021-06-13] MEDS ORDERED: LevoFLOXacin 750MG/150ML IV BAG (J1956 PER 250MG) As Ordered ONE (00:53)
[2021-06-13 01:44] LABS: RSV AMPLIFICATION NEGATIVE (NEGATIVE)
[2021-06-13 03:09] VITALS: BP 91/46
[2021-06-13] MEDS ORDERED: CYAN100050 PO (04:17)
[2021-06-13] MEDS ORDERED: OXYC1TAB23 PO (04:17)
[2021-06-13] MEDS ORDERED: LOMO2.5T PO (04:17)
[2021-06-13] MEDS ORDERED: RISATAB3 PO (04:17)
[2021-06-13] MEDS ORDERED: VANC125C3 PO (04:17)
[2021-06-13] MEDS ORDERED: HOME MED LIST COMPLETE! XX SCH (04:20)
[2021-06-13] MEDS ORDERED: GABA-282 PO (04:23)
[2021-06-13 04:35] VITALS: BP 97/53
[2021-06-13] MEDS ORDERED: NS 1,000 ML IV ONE (04:40)
[2021-06-13] MEDS ORDERED: KETOROLAC 30 MG/ML 1ML VIAL IV ONE (04:45)
[2021-06-13] MEDS: NS 1,000 ML IV SCH ×2 (04:59→16:47)
[2021-06-13] MEDS ORDERED: ALBUTEROL 90 MCG/ACT 8GM HFA INHALER INH PRN (05:15)
[2021-06-13] MEDS ORDERED: GABAPENTIN 300 MG CAP PO PRN (05:15)
[2021-06-13] MEDS: HEPARIN SOD (PORCINE) 5000UNITS/ML 1ML VIAL/SYRINGE SC SCH ×3 (05:56→20:53)
[2021-06-13 05:58] VITALS: BP 95/52
[2021-06-13] MEDS ORDERED: VANCOMYCIN ORAL SOL 250MG/5ML ORAL SYRINGE PO ONE (08:00)
[2021-06-13 08:13] LABS: CLOSTRIDIUM DIFFICILE PCR NEGATIVE (NEGATIVE)
[2021-06-13] MEDS: SIMVASTATIN 40 MG TAB PO SCH (08:38)
[2021-06-13] MEDS: FAMOTIDINE 20 MG TAB PO SCH ×2 (08:38→20:52)
[2021-06-13] MEDS: ESCITALOPRAM OXALATE 10 MG TAB (LEXAPRO) PO SCH (08:38)
[2021-06-13] MEDS ORDERED: metroNIDAZOLE 500 MG in IV 1 EA IV SCH (08:45)
[2021-06-13] MEDS ORDERED: VANCOMYCIN ORAL SOL 250MG/5ML ORAL SYRINGE PO SCH (09:00)
[2021-06-13] MEDS ORDERED: LevoFLOXacin 750 MG TABLET PO SCH (09:00)
[2021-06-13] MEDS: metroNIDAZOLE (FLAGYL) 500MG TABLET PO SCH ×3 (09:44→20:52)
[2021-06-13 10:00] VITALS: BP 109/55
[2021-06-13 10:20] LABS: BASO % 0.5 % (0.0-1.0); EOS # 0.4 10^3/uL (0.0-0.5); EOS % 5.4 % (0.0-3.0); HEMATOCRIT 27.7 % (36.0-47.0); HEMOGLOBIN 8.7 g/dl (12.0-15.5); LYMPH # 1.4 10^3/uL (1.5-5.0); LYMPH % 20.5 % (24.0-44.0); MEAN CORPUSCULAR HEMOGLOBIN 28.8 pg (27.0-33.0); MEAN CORPUSCULAR HGB CONC 31.4 g/dl (32.0-36.5); MEAN CORPUSCULAR VOLUME 91.7 fl (80.0-96.0); MONO # 0.3 10^3/uL (0.0-0.8); MONO % 4.5 % (2.0-8.0); NEUTROPHILS # 4.6 10^3/uL (1.5-8.5); NEUTROPHILS % 68.6 % (36.0-66.0); PLATELET COUNT, AUTOMATED 347 10^3/uL (150-450); RED BLOOD COUNT 3.02 10^6/uL (4.00-5.40); WHITE BLOOD COUNT 6.6 10^3/uL (4.0-10.0)
[2021-06-13] MEDS: MORPHINE 2 MG/ML 1ML VIAL IV PRN ×2 (11:44→20:57)
[2021-06-13] MEDS: LACTOBACILLUS ACIDOPHILUS CAP (BACID) PO SCH ×2 (12:59→20:52)
[2021-06-13] MEDS: ASPIRIN 81MG ENTERIC TABLET PO SCH (13:00)
[2021-06-13 14:00] VITALS: BP 115/56
[2021-06-13] MEDS ORDERED: LIDOCAINE 1% MDV 20ML VIAL As Ordered ONE ×2 (14:16→15:15)
[2021-06-13] MEDS ORDERED: SODIUM CHLORIDE 0.9% INJ 10 ML SYR IV PRN (17:25)
[2021-06-13] MEDS: LevoFLOXacin 750 MG TABLET PO SCH (17:43)
[2021-06-13] MEDS: SODIUM CHLORIDE 0.9% INJ 10 ML SYR IV SCH (17:44)
[2021-06-13 18:48] VITALS: BP 115/57
[2021-06-13] MEDS: VANCOMYCIN ORAL SOL 250MG/5ML ORAL SYRINGE PO SCH (20:52)
[2021-06-14] MEDS: MORPHINE 2 MG/ML 1ML VIAL IV PRN ×5 (01:25→23:22)
[2021-06-14 02:00] VITALS: BP 118/56
[2021-06-14] MEDS: NS 1,000 ML IV SCH (03:27)
[2021-06-14] MEDS: HEPARIN SOD (PORCINE) 5000UNITS/ML 1ML VIAL/SYRINGE SC SCH ×3 (05:32→21:51)
[2021-06-14] MEDS: SODIUM CHLORIDE 0.9% INJ 10 ML SYR IV SCH ×2 (05:33→18:00)
[2021-06-14 05:42] LABS: ALBUMIN 2.1 GM/DL (3.2-5.2); ALT/SGPT 12 U/L (12-78); BILIRUBIN,TOTAL 0.2 MG/DL (0.2-1.0); BLOOD UREA NITROGEN 6 MG/DL (7-18); CALCIUM LEVEL 8.5 MG/DL (8.5-10.1); CARBON DIOXIDE LEVEL 20 MEQ/L (21-32); CHLORIDE LEVEL 114 MEQ/L (98-107); CREATININE FOR GFR 0.37 MG/DL (0.55-1.30); GLOMERULAR FILTRATION RATE > 60.0 (>51); GLUCOSE, FASTING 88 MG/DL (70-100); POTASSIUM SERUM 3.3 MEQ/L (3.5-5.1); SODIUM LEVEL 142 MEQ/L (136-145); TOTAL PROTEIN 6.5 GM/DL (6.4-8.2)
[2021-06-14 05:44] VITALS: BP 117/56
[2021-06-14] MEDS ORDERED: POTASSIUM CHLORIDE 10MEQ SR TABLET PO ONE (07:15)
[2021-06-14 10:00] VITALS: BP 142/71
[2021-06-14] MEDS: FAMOTIDINE 20 MG TAB PO SCH ×2 (10:06→21:50)
[2021-06-14] MEDS: SIMVASTATIN 40 MG TAB PO SCH (10:06)
[2021-06-14] MEDS: ASPIRIN 81MG ENTERIC TABLET PO SCH (10:06)
[2021-06-14] MEDS: ESCITALOPRAM OXALATE 10 MG TAB (LEXAPRO) PO SCH (10:06)
[2021-06-14] MEDS: CLOPIDOGREL 75 MG TAB PO SCH (10:06)
[2021-06-14] MEDS: LACTOBACILLUS ACIDOPHILUS CAP (BACID) PO SCH ×2 (10:06→21:50)
[2021-06-14] MEDS: metroNIDAZOLE (FLAGYL) 500MG TABLET PO SCH ×3 (10:06→21:50)
[2021-06-14] MEDS: VANCOMYCIN ORAL SOL 250MG/5ML ORAL SYRINGE PO SCH ×2 (10:08→21:51)
[2021-06-14 10:18] LABS: HEMATOCRIT 26.6 % (36.0-47.0); HEMOGLOBIN 8.4 g/dl (12.0-15.5); MEAN CORPUSCULAR HEMOGLOBIN 28.7 pg (27.0-33.0); MEAN CORPUSCULAR HGB CONC 31.6 g/dl (32.0-36.5); MEAN CORPUSCULAR VOLUME 90.8 fl (80.0-96.0); PLATELET COUNT, AUTOMATED 323 10^3/uL (150-450); RED BLOOD COUNT 2.93 10^6/uL (4.00-5.40); WHITE BLOOD COUNT 5.6 10^3/uL (4.0-10.0)
[2021-06-14 14:00] VITALS: BP 134/84
[2021-06-14] MEDS: LevoFLOXacin 750 MG TABLET PO SCH (18:33)
[2021-06-14 19:28] VITALS: BP 133/85
[2021-06-15 02:00] VITALS: BP 100/50
[2021-06-15] MEDS: HEPARIN SOD (PORCINE) 5000UNITS/ML 1ML VIAL/SYRINGE SC SCH (05:48)
[2021-06-15] MEDS: SODIUM CHLORIDE 0.9% INJ 10 ML SYR IV SCH (05:49)
[2021-06-15 05:59] VITALS: BP 101/49
[2021-06-15] MEDS: MORPHINE 2 MG/ML 1ML VIAL IV PRN ×2 (06:03→10:42)
[2021-06-15 06:06] LABS: HEMATOCRIT 27.5 % (36.0-47.0); HEMOGLOBIN 8.6 g/dl (12.0-15.5); MEAN CORPUSCULAR HGB CONC 31.3 g/dl (32.0-36.5); MEAN CORPUSCULAR VOLUME 92.6 fl (80.0-96.0); PLATELET COUNT, AUTOMATED 332 10^3/uL (150-450); RED BLOOD COUNT 2.97 10^6/uL (4.00-5.40); WHITE BLOOD COUNT 5.3 10^3/uL (4.0-10.0)
[2021-06-15] MEDS ORDERED: METR-265 PO (09:20)
[2021-06-15] MEDS ORDERED: LEVO750T13 PO (09:20)
[2021-06-15 09:36] LABS: ALBUMIN 2.4 GM/DL (3.2-5.2); ALT/SGPT 13 U/L (12-78); BILIRUBIN,TOTAL 0.2 MG/DL (0.2-1.0); BLOOD UREA NITROGEN 5 MG/DL (7-18); CARBON DIOXIDE LEVEL 21 MEQ/L (21-32); CHLORIDE LEVEL 114 MEQ/L (98-107); CREATININE FOR GFR 0.45 MG/DL (0.55-1.30); GLOMERULAR FILTRATION RATE > 60.0 (>51); GLUCOSE, FASTING 93 MG/DL (70-100); MAGNESIUM LEVEL 1.8 MG/DL (1.8-2.4); POTASSIUM SERUM 3.7 MEQ/L (3.5-5.1); SODIUM LEVEL 146 MEQ/L (136-145); TOTAL PROTEIN 6.3 GM/DL (6.4-8.2)
[2021-06-15] MEDS: LACTOBACILLUS ACIDOPHILUS CAP (BACID) PO SCH (09:54)
[2021-06-15] MEDS: ESCITALOPRAM OXALATE 10 MG TAB (LEXAPRO) PO SCH (09:54)
[2021-06-15] MEDS: FAMOTIDINE 20 MG TAB PO SCH (09:54)
[2021-06-15] MEDS: VANCOMYCIN ORAL SOL 250MG/5ML ORAL SYRINGE PO SCH (09:54)
[2021-06-15] MEDS: metroNIDAZOLE (FLAGYL) 500MG TABLET PO SCH (09:54)
[2021-06-15] MEDS: CLOPIDOGREL 75 MG TAB PO SCH (09:55)
[2021-06-15] MEDS: SIMVASTATIN 40 MG TAB PO SCH (09:55)
[2021-06-15] MEDS: ASPIRIN 81MG ENTERIC TABLET PO SCH (09:55)
== END 2021-06-15 12:08 | disposition home health service (06) | DRG 248 ==
LOC: M ED 18:12 → M ED INP 06-13 01:38 → ENRESERV 06-13 02:21 → M MSPAV 06-13 03:03
PROVIDERS: ADMIT Internal Medicine; ATTEND Internal Medicine
PROC: 0W9J30Z Drainage of Pelvic Cavity with Drainage Device, Percutaneous Approach (ICD-10-PCS; 2021-06-13)
PROC: 02HV33Z Insertion of Infusion Device into Superior Vena Cava, Percutaneous Approach (ICD-10-PCS; principal; 2021-06-13 14:30)
DX: K65.1 Peritoneal abscess (principal); I74.5 Embolism and thrombosis of iliac artery; I96 Gangrene, not elsewhere classified; I50.32 Chronic diastolic (congestive) heart failure; T81.30XA Disruption of wound, unspecified, initial encounter; G62.9 Polyneuropathy, unspecified; F32.A Depression, unspecified; F41.9 Anxiety disorder, unspecified; Z87.891 Personal history of nicotine dependence; D64.9 Anemia, unspecified; J45.909 Unspecified asthma, uncomplicated; Z95.828 Presence of other vascular implants and grafts; K21.9 Gastro-esophageal reflux disease without esophagitis; J44.9 Chronic obstructive pulmonary disease, unspecified; Z20.822 Contact with and (suspected) exposure to COVID-19; Z79.899 Other long term (current) drug therapy; Z91.030 Bee allergy status; R19.7 Diarrhea, unspecified; E78.5 Hyperlipidemia, unspecified; Z90.49 Acquired absence of other specified parts of digestive tract

== ENCOUNTER → 2021-07-21 | Outpatient (CLI) | payer BC, SELFPAY ==
[~2021-07-21] MED LIST changes: +CYAN100050 PO; +GABA-282 PO; +LOMO2.5T PO; +METR-265 PO; +VANC125C3 PO
[2021-07-21 13:42] LABS: BASO # 0.1 10^3/uL (0.0-0.2); BASO % 0.7 % (0.0-1.0); EOS # 0.1 10^3/uL (0.0-0.5); EOS % 1.6 % (0.0-3.0); HEMATOCRIT 38.8 % (36.0-47.0); HEMOGLOBIN 12.3 g/dl (12.0-15.5); LYMPH # 1.8 10^3/uL (1.5-5.0); LYMPH % 25.9 % (24.0-44.0); MEAN CORPUSCULAR HEMOGLOBIN 29.9 pg (27.0-33.0); MEAN CORPUSCULAR HGB CONC 31.7 g/dl (32.0-36.5); MEAN CORPUSCULAR VOLUME 94.4 fl (80.0-96.0); MONO # 0.4 10^3/uL (0.0-0.8); MONO % 5.7 % (2.0-8.0); NEUTROPHILS # 4.5 10^3/uL (1.5-8.5); NEUTROPHILS % 65.8 % (36.0-66.0); PLATELET COUNT, AUTOMATED 326 10^3/uL (150-450); RED BLOOD COUNT 4.11 10^6/uL (4.00-5.40); WHITE BLOOD COUNT 6.8 10^3/uL (4.0-10.0)
[2021-07-21 14:11] LABS: ALBUMIN 3.5 GM/DL (3.2-5.2); ALT/SGPT 22 U/L (12-78); BILIRUBIN,TOTAL 0.4 MG/DL (0.2-1.0); BLOOD UREA NITROGEN 12 MG/DL (7-18); CALCIUM LEVEL 9.7 MG/DL (8.5-10.1); CARBON DIOXIDE LEVEL 24 MEQ/L (21-32); CHLORIDE LEVEL 111 MEQ/L (98-107); CREATININE FOR GFR 0.73 MG/DL (0.55-1.30); GLOMERULAR FILTRATION RATE > 60.0 (>51); GLUCOSE, FASTING 84 MG/DL (70-100); IMMUNOGLOBULIN G 1760 MG/DL (681-1648); POTASSIUM SERUM 4.1 MEQ/L (3.5-5.1); SODIUM LEVEL 140 MEQ/L (136-145); TOTAL PROTEIN 7.9 GM/DL (6.4-8.2)
[2021-07-21 14:51] LABS: HIV 1&2 SCREEN CENTAUR NEGATIVE (NEGATIVE)
== END ==
LOC: M LAB 12:41
PROVIDERS: ATTEND Internal Medicine Infectious Disease
DX: K65.1 Peritoneal abscess (principal)

== ENCOUNTER → 2021-07-21 | Outpatient (CLI) | payer BC ==
[~2021-07-21] MED LIST changes: +ISOVUE-300 61% 50ML VIAL As Ordered ONE
== END ==
LOC: M RAD 11:25
PROVIDERS: ATTEND Surgery
DX: Z48.815 Encounter for surgical aftercare following surgery on the digestive system (principal)
CPT/HCPCS: 76080; Q9967

== ENCOUNTER → 2021-09-28 | Outpatient (CLI) | payer BC, MEDICARE ==
[~2021-09-28] MED LIST changes: -ISOVUE-300 61% 50ML VIAL As Ordered ONE; +LEVO1TAB40 PO; -LEVO750T13 PO
== END ==
LOC: M RAD 11:54
PROVIDERS: ATTEND Surgery Vascular Surgery
DX: I65.23 Occlusion and stenosis of bilateral carotid arteries (principal); I70.213 Atherosclerosis of native arteries of extremities with intermittent claudication, bilateral legs

== ENCOUNTER → 2021-10-25 | Outpatient (CLI) | payer BC ==
[~2021-10-25] MED LIST changes: +GASTROGRAFIN SOLUTION 30ML (Q9963) As Ordered ONE; +ISOVUE-370 76% 100ML VIAL As Ordered ONE
== END ==
LOC: M RAD 11:46
PROVIDERS: ATTEND Colon & Rectal Surgery
DX: K63.2 Fistula of intestine (principal); K52.9 Noninfective gastroenteritis and colitis, unspecified
CPT/HCPCS: 74177; Q9963; Q9967

== ENCOUNTER → 2021-11-03 | Outpatient (CLI) | payer BC ==
[~2021-11-03] MED LIST changes: +ALBU6.7H6 INH; -GASTROGRAFIN SOLUTION 30ML (Q9963) As Ordered ONE; -ISOVUE-370 76% 100ML VIAL As Ordered ONE; -PROV108A INH
== END ==
LOC: M RAD 10:36
PROVIDERS: ATTEND Surgery Vascular Surgery
DX: I70.8 Atherosclerosis of other arteries (principal); I73.9 Peripheral vascular disease, unspecified

== ENCOUNTER → 2021-11-03 | Outpatient (CLI) | payer BC ==
[2021-11-03 12:39] LABS: BASO # 0.1 10^3/uL (0.0-0.2); BASO % 0.9 % (0.0-1.0); EOS # 0.1 10^3/uL (0.0-0.5); HEMATOCRIT 48.9 % (36.0-47.0); HEMOGLOBIN 15.4 g/dl (12.0-15.5); LYMPH # 1.3 10^3/uL (1.5-5.0); LYMPH % 18.8 % (24.0-44.0); MEAN CORPUSCULAR HEMOGLOBIN 30.8 pg (27.0-33.0); MEAN CORPUSCULAR HGB CONC 31.5 g/dl (32.0-36.5); MEAN CORPUSCULAR VOLUME 97.8 fl (80.0-96.0); MONO # 0.3 10^3/uL (0.0-0.8); MONO % 4.7 % (2.0-8.0); NEUTROPHILS # 5.2 10^3/uL (1.5-8.5); NEUTROPHILS % 74.3 % (36.0-66.0); PLATELET COUNT, AUTOMATED 307 10^3/uL (150-450)
[2021-11-03 13:26] LABS: ALBUMIN 4.2 GM/DL (3.2-5.2); ALT/SGPT 23 U/L (12-78); BILIRUBIN,TOTAL 0.3 MG/DL (0.2-1.0); BLOOD UREA NITROGEN 22 MG/DL (7-18); C REACTIVE PROTEIN QUANTITATIV 0.61 MG/DL (0.00-0.30); CALCIUM LEVEL 9.5 MG/DL (8.5-10.1); CARBON DIOXIDE LEVEL 16 MEQ/L (21-32); CHLORIDE LEVEL 113 MEQ/L (98-107); CREATININE FOR GFR 1.13 MG/DL (0.55-1.30); GLOMERULAR FILTRATION RATE 53.6 (>51); GLUCOSE, FASTING 84 MG/DL (70-100); POTASSIUM SERUM 4.2 MEQ/L (3.5-5.1); RHEUMATOID FACTOR QUANT < 10.0 IU/ML (<15.0); SODIUM LEVEL 138 MEQ/L (136-145); TOTAL PROTEIN 8.7 GM/DL (6.4-8.2)
[2021-11-03 13:33] LABS: ERYTHROCYTE SEDIMENTATION RATE 16 mm/hr (0-30)
[2021-11-07 01:06] LABS: ANA (HEP2) Positive (.); CYCLIC CITRULLINATED PEPTIDE 5 units (0-19)
== END ==
LOC: M LAB 10:45
PROVIDERS: ATTEND Student in an Organized Health Care Education/Training Program
DX: R22.32 Localized swelling, mass and lump, left upper limb (principal)

== ENCOUNTER → 2021-11-16 | Outpatient (CLI) | payer BC ==
[~2021-11-16] MED LIST changes: +ISOVUE-300 61% 50ML VIAL As Ordered ONE
== END ==
LOC: M RAD 11:16
PROVIDERS: ATTEND Colon & Rectal Surgery
DX: K63.2 Fistula of intestine (principal)
CPT/HCPCS: 76000; Q9967

== ENCOUNTER → 2021-12-07 | Outpatient (CLI) | payer BC ==
[~2021-12-07] MED LIST changes: -ISOVUE-300 61% 50ML VIAL As Ordered ONE; +ISOVUE-370 76% 100ML VIAL As Ordered ONE
== END ==
LOC: M RAD 14:00
PROVIDERS: ATTEND Surgery Vascular Surgery
DX: I70.8 Atherosclerosis of other arteries (principal)
CPT/HCPCS: 70498; 71275; Q9967

== ENCOUNTER → 2022-01-07 | Outpatient (CLI) | payer BC ==
[~2022-01-07] MED LIST changes: +ALBU8.5H INH; +CLOP75TA99 PO; +FAMO20TA5 PO; -ISOVUE-370 76% 100ML VIAL As Ordered ONE; +LEXA1TAB2 PO; -PLAV1TAB2 PO
== END ==
LOC: M LABSMTC 09:58
PROVIDERS: ATTEND Anesthesiology
DX: Z01.812 Encounter for preprocedural laboratory examination (principal); Z20.822 Contact with and (suspected) exposure to COVID-19

== ENCOUNTER → 2022-01-09 | Outpatient (CLI) | payer BC ==
[~2022-01-09] MED LIST changes: +POTA-136 PO
== END ==
LOC: M RAD 11:47
PROVIDERS: ATTEND Surgery Vascular Surgery
DX: Z01.818 Encounter for other preprocedural examination (principal); I65.23 Occlusion and stenosis of bilateral carotid arteries; I70.92 Chronic total occlusion of artery of the extremities

== ENCOUNTER 2022-01-10 06:10 | Day surgery (SDC) | payer BC ==
[~2022-01-10] VITALS: Ht 152.4 cm; Wt 47.6 kg
[~2022-01-10 06:10] MED LIST changes: -POTA-136 PO; +VANCOMYCIN HCL 1,000 MG, VIAL MATE ADAPTER 1 EACH in D5W 250 ML IV ONE
[2022-01-10 06:56] LABS: HEMATOCRIT 41.7 % (36.0-47.0); HEMOGLOBIN 13.9 g/dl (12.0-15.5); MEAN CORPUSCULAR HEMOGLOBIN 31.7 pg (27.0-33.0); MEAN CORPUSCULAR HGB CONC 33.3 g/dl (32.0-36.5); PLATELET COUNT, AUTOMATED 298 10^3/uL (150-450); RED BLOOD COUNT 4.39 10^6/uL (4.00-5.40); WHITE BLOOD COUNT 6.9 10^3/uL (4.0-10.0)
[2022-01-10 07:06] LABS: INR 0.97; PROTHROMBIN TIME 13.1 SECONDS (12.5-14.5)
[2022-01-10 07:07] LABS: PARTIAL THROMBOPLASTIN TIME 30.9 SECONDS (24.8-34.2)
[2022-01-10] MEDS ORDERED: HEPARIN SOD (PORCINE) 5000UNITS/ML 1ML VIAL/SYRINGE As Ordered ONE (07:15)
[2022-01-10] MEDS ORDERED: THROMBIN SOLN 20,000 UNITS KIT As Ordered ONE (07:15)
[2022-01-10] MEDS ORDERED: BUPIVACAINE/EPIN 0.25% 30 ML VIAL As Ordered ONE (07:15)
[2022-01-10] MEDS ORDERED: LIDOCAINE 1% SDV 30ML VIAL As Ordered ONE (07:15)
[2022-01-10] MEDS ORDERED: dexameTHASONE 4 MG/ML 1ML VIAL (J1100 PER 1MG) As Ordered ONE ×2 (07:19→13:00)
[2022-01-10] MEDS ORDERED: MIDAZOLAM INJ 2MG/2ML VIAL (J2250 PER 1MG) As Ordered ONE (07:19)
[2022-01-10] MEDS ORDERED: ONDANSETRON 4MG 2ML VIAL As Ordered ONE (07:19)
[2022-01-10] MEDS ORDERED: fentaNYL 100 MCG/2 ML INJECTION As Ordered ONE (07:19)
[2022-01-10] MEDS ORDERED: propofoL 200 MG/20 ML VIAL As Ordered ONE (07:19)
[2022-01-10] MEDS ORDERED: ROCURONIUM BROMIDE 50 MG/5 ML VIAL As Ordered ONE (07:19)
[2022-01-10] MEDS ORDERED: LIDOCAINE 2% 100MG/5ML SDV (FOR ANES.) As Ordered ONE (07:19)
[2022-01-10] MEDS ORDERED: LR 1,000 ML IV SCH (07:20)
[2022-01-10] MEDS ORDERED: PHENYLEPHRINE 10MG/ML 1ML VIAL As Ordered ONE (07:23)
[2022-01-10 07:24] LABS: CALCIUM LEVEL 9.4 MG/DL (8.5-10.1); CREATININE FOR GFR 1.34 MG/DL (0.55-1.30); POTASSIUM SERUM 2.9 MMOL/L (3.5-5.1)
[2022-01-10] MEDS ORDERED: POTASSIUM CHLORIDE 10MEQ SR TABLET PO ONE (07:45)
[2022-01-10] MEDS: KCL 10MEQ/100ML SWI (KRUN) 10 MEQ in IV 1 EA IV SCH ×3 (08:29→11:22)
[2022-01-10] MEDS ORDERED: POTA-136 PO (11:01)
[2022-01-10 11:49] LABS: CALCIUM LEVEL 8.8 MG/DL (8.5-10.1); CREATININE FOR GFR 1.19 MG/DL (0.55-1.30); GLOMERULAR FILTRATION RATE 50.5 (>51); MAGNESIUM LEVEL 2.2 MG/DL (1.8-2.4); POTASSIUM SERUM 3.8 MMOL/L (3.5-5.1)
[2022-01-10 12:00] VITALS: BP 124/63
[2022-01-11] MEDS ORDERED: POTASSIUM CHLORIDE 10MEQ SR TABLET PO SCH (09:00)
[2022-01-16] MEDS ORDERED: POTA1TAB23 PO (10:13)
== END 2022-01-10 12:59 | disposition home or self-care (01) ==
LOC: UNDOADMIN 06:10 → M OR 06:10 → M SDC 06:10 → EDSTATUS 07:30 → UNDODISIN 12:59 → M SDC 12:59
PROVIDERS: ATTEND Surgery Vascular Surgery
DX: I65.21 Occlusion and stenosis of right carotid artery (principal); Z53.09 Procedure and treatment not carried out because of other contraindication
CPT/HCPCS: 36415; 80048; 83735; 85027; 85610; 85730; 86850; 86900; 86901; 86920; J1100; J2370; J2405; J3370

== ENCOUNTER → 2022-01-15 | Outpatient (CLI) | payer BC ==
[~2022-01-15] MED LIST changes: +POTA-136 PO; +POTA1TAB23 PO; -VANCOMYCIN HCL 1,000 MG, VIAL MATE ADAPTER 1 EACH in D5W 250 ML IV ONE
== END ==
LOC: M LABSMTC 09:05
PROVIDERS: ATTEND Anesthesiology
DX: Z01.812 Encounter for preprocedural laboratory examination (principal); Z11.52 Encounter for screening for COVID-19

== ENCOUNTER → 2022-01-15 | Outpatient (CLI) | payer BC ==
[~2022-01-15] MED LIST changes: +ACET1TAB55 PO; +ASPI81TAEC PO
[2022-01-15 08:48] LABS: HEMATOCRIT 42.4 % (36.0-47.0); HEMOGLOBIN 13.5 g/dl (12.0-15.5); MEAN CORPUSCULAR HEMOGLOBIN 31.3 pg (27.0-33.0); MEAN CORPUSCULAR HGB CONC 31.8 g/dl (32.0-36.5); MEAN CORPUSCULAR VOLUME 98.4 fl (80.0-96.0); PLATELET COUNT, AUTOMATED 266 10^3/uL (150-450); RED BLOOD COUNT 4.31 10^6/uL (4.00-5.40); WHITE BLOOD COUNT 5.4 10^3/uL (4.0-10.0)
[2022-01-15 09:28] LABS: ALBUMIN 3.8 G/DL (3.2-5.2); BILIRUBIN,TOTAL 0.3 MG/DL (0.3-1.2); CALCIUM LEVEL 8.9 MG/DL (8.5-10.1); CREATININE FOR GFR 1.31 MG/DL (0.55-1.30); GLOMERULAR FILTRATION RATE 45.2 (>51); MAGNESIUM LEVEL 2.2 MG/DL (1.8-2.4); PHOSPHORUS LEVEL 4.2 MG/DL (2.5-4.9); POTASSIUM SERUM 4.3 MMOL/L (3.5-5.1); TOTAL PROTEIN 7.3 G/DL (5.7-8.2)
== END ==
LOC: M LAB 08:23
PROVIDERS: ATTEND Surgery Vascular Surgery
DX: Z01.818 Encounter for other preprocedural examination (principal)

== ENCOUNTER → 2022-02-07 | Outpatient (CLI) | payer BC | LOC: M RAD 13:33 | PROVIDERS: ATTEND Surgery Vascular Surgery | DX: I70.218 Atherosclerosis of native arteries of extremities with intermittent claudication, other extremity (principal); I65.23 Occlusion and stenosis of bilateral carotid arteries ==

== ENCOUNTER → 2022-02-07 | Outpatient (CLI) | payer BC ==
[2022-02-07 14:14] LABS: BASO # 0.1 10^3/uL (0.0-0.2); BASO % 1.1 % (0.0-1.0); EOS # 0.1 10^3/uL (0.0-0.5); EOS % 1.6 % (0.0-3.0); HEMATOCRIT 37.6 % (36.0-47.0); HEMOGLOBIN 11.6 g/dl (12.0-15.5); LYMPH # 1.5 10^3/uL (1.5-5.0); LYMPH % 23.8 % (24.0-44.0); MEAN CORPUSCULAR HGB CONC 30.9 g/dl (32.0-36.5); MEAN CORPUSCULAR VOLUME 100.5 fl (80.0-96.0); MONO # 0.5 10^3/uL (0.0-0.8); MONO % 7.3 % (2.0-8.0); NEUTROPHILS # 4.2 10^3/uL (1.5-8.5); NEUTROPHILS % 65.9 % (36.0-66.0); PLATELET COUNT, AUTOMATED 272 10^3/uL (150-450); RED BLOOD COUNT 3.74 10^6/uL (4.00-5.40); WHITE BLOOD COUNT 6.3 10^3/uL (4.0-10.0)
[2022-02-07 14:25] LABS: MAGNESIUM LEVEL 1.9 MG/DL (1.8-2.4)
[2022-02-07 14:27] LABS: CALCIUM LEVEL 8.5 MG/DL (8.5-10.1); CHOLESTEROL RISK RATIO 1.78 (<5); CREATININE FOR GFR 1.28 MG/DL (0.55-1.30); GLOMERULAR FILTRATION RATE 46.4 (>51); HDL CHOLESTEROL 76.7 MG/DL (>40); LDL CHOLESTEROL 42.5 MG/DL (<100); POTASSIUM SERUM 3.6 MMOL/L (3.5-5.1)
[2022-02-07 14:29] LABS: TOTAL 25(OH) VITAMIN D 20.7 NG/ML (20.0-100.0)
== END ==
LOC: M LAB 13:36
PROVIDERS: ATTEND Student in an Organized Health Care Education/Training Program
DX: N17.9 Acute kidney failure, unspecified (principal); E55.9 Vitamin D deficiency, unspecified; E53.8 Deficiency of other specified B group vitamins; I70.90 Unspecified atherosclerosis; I74.5 Embolism and thrombosis of iliac artery; E87.6 Hypokalemia; F32.1 Major depressive disorder, single episode, moderate; D63.8 Anemia in other chronic diseases classified elsewhere

== ENCOUNTER → 2022-02-15 | Outpatient (CLI) | payer BC ==
[~2022-02-15] MED LIST changes: +GASTROGRAFIN SOLUTION 30ML As Ordered ONE
== END ==
LOC: M RAD 08:40
PROVIDERS: ATTEND Colon & Rectal Surgery
DX: K91.89 Other postprocedural complications and disorders of digestive system (principal)

== ENCOUNTER → 2022-04-06 | Outpatient (REF) | payer BC ==
[~2022-04-06] MED LIST changes: -GASTROGRAFIN SOLUTION 30ML As Ordered ONE
[2022-04-06 16:51] LABS: CALCIUM LEVEL 9.1 MG/DL (8.5-10.1); CREATININE FOR GFR 1.59 MG/DL (0.55-1.30); GLOMERULAR FILTRATION RATE 36.2 (>51); PERCENT SATURATION 14.5 % (13.2-45.0); POTASSIUM SERUM 3.9 MMOL/L (3.5-5.1)
[2022-04-06 16:54] LABS: FERRITIN 43.1 NG/ML (7.3-270.7)
[2022-04-06 17:24] LABS: BASO # 0.1 10^3/uL (0.0-0.2); BASO % 0.9 % (0.0-1.0); EOS # 0.1 10^3/uL (0.0-0.5); EOS % 1.1 % (0.0-3.0); HEMATOCRIT 39.7 % (36.0-47.0); LYMPH # 1.4 10^3/uL (1.5-5.0); LYMPH % 20.4 % (24.0-44.0); MEAN CORPUSCULAR HEMOGLOBIN 32.3 pg (27.0-33.0); MEAN CORPUSCULAR HGB CONC 32.7 g/dl (32.0-36.5); MEAN CORPUSCULAR VOLUME 98.5 fl (80.0-96.0); MONO # 0.5 10^3/uL (0.0-0.8); MONO % 6.9 % (2.0-8.0); NEUTROPHILS # 4.9 10^3/uL (1.5-8.5); NEUTROPHILS % 70.4 % (36.0-66.0); PLATELET COUNT, AUTOMATED 234 10^3/uL (150-450); RED BLOOD COUNT 4.03 10^6/uL (4.00-5.40)
== END ==
LOC: M SFHCRHEU 14:16
PROVIDERS: ATTEND Internal Medicine
DX: R94.4 Abnormal results of kidney function studies (principal); D64.9 Anemia, unspecified

== ENCOUNTER → 2022-05-16 | Outpatient (CLI) | payer BC ==
[2022-05-16 13:13] LABS: CALCIUM LEVEL 8.9 MG/DL (8.5-10.1); CREATININE FOR GFR 1.63 MG/DL (0.55-1.30); GLOMERULAR FILTRATION RATE 35.1 (>51); POTASSIUM SERUM 4.4 MMOL/L (3.5-5.1)
== END ==
LOC: M LAB 10:29
PROVIDERS: ATTEND Student in an Organized Health Care Education/Training Program
DX: Z01.818 Encounter for other preprocedural examination (principal)

== ENCOUNTER → 2022-09-05 | Outpatient (CLI) | payer BC ==
[~2022-09-05] MED LIST changes: +CYAN-1 PO; -CYAN100050 PO
== END ==
LOC: M LAB 11:42
PROVIDERS: ATTEND Internal Medicine
DX: E55.9 Vitamin D deficiency, unspecified (principal)

== ENCOUNTER → 2022-09-27 | Outpatient (CLI) | payer BC | LOC: M RAD 09:06 | PROVIDERS: ATTEND Internal Medicine Nephrology | DX: N18.32 Chronic kidney disease, stage 3b (principal); I70.1 Atherosclerosis of renal artery ==

== ENCOUNTER → 2022-09-27 | Outpatient (CLI) | payer BC ==
[2022-09-27 10:18] LABS: HEMOGLOBIN 13.6 g/dl (12.0-15.5); MEAN CORPUSCULAR HEMOGLOBIN 31.3 pg (27.0-33.0); MEAN CORPUSCULAR HGB CONC 32.4 g/dl (32.0-36.5); MEAN CORPUSCULAR VOLUME 96.8 fl (80.0-96.0); PLATELET COUNT, AUTOMATED 252 10^3/uL (150-450); RED BLOOD COUNT 4.34 10^6/uL (4.00-5.40); WHITE BLOOD COUNT 6.1 10^3/uL (4.0-10.0)
[2022-09-27 10:48] LABS: CHOLESTEROL RISK RATIO 1.52 (<5); HDL CHOLESTEROL 99.1 MG/DL (>40); LDL CHOLESTEROL 40.5 MG/DL (<100); NON-HDL-C 51.9 MG/DL
[2022-09-27 11:09] LABS: HEMOGLOBIN A1c 5.2 % (4.0-6.0)
== END ==
LOC: M LAB 09:14
PROVIDERS: ATTEND Student in an Organized Health Care Education/Training Program
DX: R53.82 Chronic fatigue, unspecified (principal); E55.9 Vitamin D deficiency, unspecified; E53.8 Deficiency of other specified B group vitamins; Z13.1 Encounter for screening for diabetes mellitus; Z13.220 Encounter for screening for lipoid disorders

== ENCOUNTER → 2022-10-23 | Outpatient (CLI) | payer BC | LOC: M WHC 11:31 | PROVIDERS: ATTEND Student in an Organized Health Care Education/Training Program | DX: Z12.31 Encounter for screening mammogram for malignant neoplasm of breast (principal) ==

== ENCOUNTER → 2023-05-28 | Outpatient (REF) | payer BC | LOC: M SFHCRHEU 12:19 | PROVIDERS: ATTEND Internal Medicine | DX: R76.8 Other specified abnormal immunological findings in serum (principal) ==

== ENCOUNTER → 2023-07-15 | Outpatient (CLI) | payer BC | LOC: M RAD 12:02 | PROVIDERS: ATTEND Internal Medicine | DX: M79.641 Pain in right hand (principal) ==

== ENCOUNTER → 2024-01-15 | Outpatient (CLI) | payer BC ==
[~2024-01-15] MED LIST changes: +GABA-1172 PO; -GABA-282 PO
== END ==
LOC: M WHC 10:20
PROVIDERS: ATTEND Student in an Organized Health Care Education/Training Program
DX: Z12.31 Encounter for screening mammogram for malignant neoplasm of breast (principal)

== ENCOUNTER 2025-01-11 17:37 | Inpatient (IN) | payer BC, OTHER ==
[~2025-01-11] VITALS: Ht 152.4 cm; Wt 46.3 kg
[~2025-01-11 17:37] MED LIST changes: +VANC125C13 PO; -VANC125C3 PO
[2025-01-11 18:56] LABS: BASO # 0.1 10^3/uL (0.0-0.2); BASO % 0.6 % (0.0-1.0); EOS # 0.1 10^3/uL (0.0-0.5); EOS % 0.6 % (0.0-3.0); LYMPH # 1.9 10^3/uL (1.5-5.0); LYMPH % 14.7 % (24.0-44.0); MONO # 0.6 10^3/uL (0.0-0.8); MONO % 4.7 % (2.0-8.0); NEUTROPHILS # 9.9 10^3/uL (1.5-8.5); NEUTROPHILS % 78.4 % (36.0-66.0); PLATELET COUNT, AUTOMATED 401 10^3/uL (150-450)
[2025-01-11] MEDS: ACETAMINOPHEN *IV* 1,000 MG in IV 1 EA IV ONE (19:15)
[2025-01-11 19:25] LABS: ALT/SGPT 19.0 U/L (7.0-40); AST/SGOT 23.0 U/L (<34); C REACTIVE PROTEIN QUANTITATIV 3.85 MG/DL (<1.0); CALCIUM LEVEL 10.3 MG/DL (8.5-10.1); CARBON DIOXIDE LEVEL 20.0 MMOL/L (20-31); CHLORIDE LEVEL 93.0 MMOL/L (98-107); CREATININE FOR GFR 1.83 MG/DL (0.55-1.30); GLOMERULAR FILTRATION RATE 32.0 (>51); POTASSIUM SERUM 3.9 MMOL/L (3.5-5.1); SODIUM LEVEL 127.0 MMOL/L (136-145)
[2025-01-11] MEDS ORDERED: ISOVUE-370 76% 100 ML VIAL As Ordered ONE (19:45)
[2025-01-11] MEDS: MORPHINE 4 MG/ML 1 ML VIAL IV PRN (21:57)
[2025-01-11] MEDS: NS (Normal Saline) 0.9% 1,000 ML IV ONE (23:31)
[2025-01-11] MEDS: PIPERACILLIN/TAZOBACTAM SOD 3.375 GM in DEXTROSE 5% (D5W) ADV/MINI-BAG 50 ML IV ONE (23:31)
[2025-01-12] MEDS ORDERED: MOM 30 ML SUSPENSION UDC PO PRN (01:00)
[2025-01-12] MEDS: NS (Normal Saline) 0.9% 1,000 ML IV SCH (01:25)
[2025-01-12] MEDS: MORPHINE 4 MG/ML 1 ML VIAL IV PRN ×2 (05:36→17:04)
[2025-01-12] MEDS: PIPERACILLIN/TAZOBACTAM SOD 3.375 GM in DEXTROSE 5% (D5W) ADV/MINI-BAG 50 ML IV SCH (06:02)
[2025-01-12 08:05] LABS: PLATELET COUNT, AUTOMATED 326 10^3/uL (150-450)
[2025-01-12 08:26] LABS: CALCIUM LEVEL 8.7 MG/DL (8.5-10.1); CARBON DIOXIDE LEVEL 19.0 MMOL/L (20-31); CHLORIDE LEVEL 102.0 MMOL/L (98-107); CREATININE FOR GFR 1.67 MG/DL (0.55-1.30); GLOMERULAR FILTRATION RATE 35.7 (>51); POTASSIUM SERUM 3.4 MMOL/L (3.5-5.1); SODIUM LEVEL 132.0 MMOL/L (136-145)
[2025-01-12] MEDS ORDERED: ECOT81TA5 PO (08:52)
[2025-01-12] MEDS ORDERED: HYDR-3713 PO (08:52)
[2025-01-12] MEDS ORDERED: SODI325T9 PO (08:52)
[2025-01-12] MEDS ORDERED: ACET1TAB55 PO (08:52)
[2025-01-12] MEDS ORDERED: NATU1TAB5 PO (08:52)
[2025-01-12] MEDS ORDERED: HOME MED LIST COMPLETE! XX SCH (08:55)
[2025-01-12] MEDS: PANTOPRAZOLE 40MG TAB PO SCH (08:56)
[2025-01-12] MEDS: LR 1,000 ML IV SCH (08:57)
[2025-01-12] MEDS ORDERED: ENOXAPARIN 30 MG/0.3 ML SYRINGE (J1650 PER 10MG) SC SCH (09:00)
[2025-01-12] MEDS ORDERED: ESCITALOPRAM OXALATE 10 MG TABLET PO SCH (09:00)
[2025-01-12] MEDS: POTASSIUM CHLORIDE 10MEQ SR TABLET PO ONE (10:05)
[2025-01-12] MEDS ORDERED: FAMOTIDINE 20 MG TAB PO PRN (10:25)
[2025-01-12] MEDS: SIMVASTATIN 40 MG TAB PO SCH (12:20)
[2025-01-12] MEDS: ASPIRIN 81 MG ENTERIC TABLET PO SCH ×2 (12:20→21:00)
[2025-01-12] MEDS: SODIUM BICARBONATE 325 MG TAB PO SCH (12:20)
[2025-01-12 16:33] VITALS: BP 134/69; TEMP 98.7; O2SAT 95
[2025-01-12] MEDS: THIAMINE 200MG 2ML VIAL IV ONE (18:31)
[2025-01-12 18:45] LABS: CALCIUM LEVEL 8.6 MG/DL (8.5-10.1); CARBON DIOXIDE LEVEL 20.0 MMOL/L (20-31); CHLORIDE LEVEL 104.0 MMOL/L (98-107); CREATININE FOR GFR 1.54 MG/DL (0.55-1.30); GLOMERULAR FILTRATION RATE 39.4 (>51); POTASSIUM SERUM 3.7 MMOL/L (3.5-5.1); SODIUM LEVEL 134.0 MMOL/L (136-145)
[2025-01-12] MEDS: ALBUTEROL 90 MCG/ACT 8 GM HFA INHALER INH PRN (19:01)
[2025-01-12 20:15] VITALS: BP 99/56; TEMP 99.6; O2SAT 92
[2025-01-12] MEDS ORDERED: POTASSIUM CHLORIDE 10MEQ SR TABLET PO SCH (21:00)
[2025-01-12] MEDS: ENOXAPARIN 30 MG/0.3 ML SYRINGE (J1650 PER 10MG) SC SCH (21:04)
[2025-01-12 22:00] VITALS: BP 102/69
[2025-01-12] MEDS: ACETAMINOPHEN 325 MG TAB PO PRN (22:51)
[2025-01-12] MEDS: D5W/LR 1,000 ML IV SCH (22:53)
[2025-01-12] MEDS: LIDOCAINE 5% PATCH TOP PRN (23:34)
[2025-01-13] VITALS (9 sets, daily range): BP systolic 98–120; BP diastolic 47–69; TEMP 97.5–98.9; O2SAT 90–97
[2025-01-13 06:28] LABS: PLATELET COUNT, AUTOMATED 279 10^3/uL (150-450)
[2025-01-13 06:58] LABS: ALT/SGPT 12.0 U/L (7.0-40); AST/SGOT 16.0 U/L (<34); CALCIUM LEVEL 8.7 MG/DL (8.5-10.1); CARBON DIOXIDE LEVEL 21.0 MMOL/L (20-31); CHLORIDE LEVEL 106.0 MMOL/L (98-107); CREATININE FOR GFR 1.51 MG/DL (0.55-1.30); GLOMERULAR FILTRATION RATE 40.3 (>51); MAGNESIUM LEVEL 1.7 MG/DL (1.8-2.4); POTASSIUM SERUM 3.4 MMOL/L (3.5-5.1); SODIUM LEVEL 137.0 MMOL/L (136-145)
[2025-01-13] MEDS: MAG SULF 1GM/100ML (MAG RUN) 1 GM in IV 1 EA IV ONE (08:35)
[2025-01-13] MEDS ORDERED: THIAMINE 100 MG TAB PO SCH (09:00)
[2025-01-13] MEDS ORDERED: ESCITALOPRAM OXALATE 10 MG TABLET PO SCH (09:00)
[2025-01-13] MEDS ORDERED: FOLIC ACID 1 MG TAB PO SCH (09:00)
[2025-01-13] MEDS: KCL 10MEQ/100ML SWI (KRUN) 10 MEQ in IV 1 EA IV SCH (10:00)
[2025-01-13] MEDS: THIAMINE 200MG 2ML VIAL IV SCH (10:54)
[2025-01-13] MEDS: MULTIVITAMINS/MINERALS THERAP 1 TAB PO SCH (10:55)
[2025-01-13] MEDS: ESCITALOPRAM OXALATE 10 MG TABLET PO SCH (10:55)
[2025-01-13 10:58] LABS: PHOSPHORUS LEVEL 3.4 MG/DL (2.5-4.9)
[2025-01-13 12:47] LABS: MAGNESIUM LEVEL 2.3 MG/DL (1.8-2.4); POTASSIUM SERUM 3.6 MMOL/L (3.5-5.1)
[2025-01-13] MEDS: MORPHINE 4 MG/ML 1 ML VIAL IV PRN (14:11)
[2025-01-13] MEDS: PANTOPRAZOLE 40MG VIAL IV SCH (14:29)
[2025-01-13] MEDS: SODIUM CHLORIDE 0.9% INJ 10 ML SYR IV SCH (17:22)
[2025-01-13] MEDS: FAT EMULSION IV 125 ML IV ONE (17:46)
[2025-01-13] MEDS: MULTIVITAMIN -ADULT INJECTION 10 ML, ZINC/COPPER/MANGANESE/SELENIUM 1 ML in AMINO AC/EL... IV SCH (17:46)
[2025-01-13] MEDS: INSULIN LISPRO (NovoLOG) PER UNIT SC SCH (17:57)
[2025-01-13 19:29] LABS: MAGNESIUM LEVEL 1.9 MG/DL (1.8-2.4); PHOSPHORUS LEVEL 2.7 MG/DL (2.5-4.9); POTASSIUM SERUM 3.8 MMOL/L (3.5-5.1)
[2025-01-13] MEDS: ASPIRIN 300 MG SUPP PR SCH (20:30)
[2025-01-14] VITALS (11 sets, daily range): BP systolic 100–125; BP diastolic 55–64; TEMP 97.9–99.5; O2SAT 90–98
[2025-01-14 06:32] LABS: BASO # 0.1 10^3/uL (0.0-0.2); BASO % 0.9 % (0.0-1.0); EOS # 0.2 10^3/uL (0.0-0.5); EOS % 4.2 % (0.0-3.0); LYMPH # 1.3 10^3/uL (1.5-5.0); LYMPH % 22.2 % (24.0-44.0); MONO # 0.4 10^3/uL (0.0-0.8); MONO % 6.7 % (2.0-8.0); NEUTROPHILS # 3.7 10^3/uL (1.5-8.5); NEUTROPHILS % 65.5 % (36.0-66.0); PLATELET COUNT, AUTOMATED 285 10^3/uL (150-450)
[2025-01-14 06:57] LABS: ALT/SGPT 11.0 U/L (7.0-40); AST/SGOT 16.0 U/L (<34); CALCIUM LEVEL 8.7 MG/DL (8.5-10.1); CARBON DIOXIDE LEVEL 22.0 MMOL/L (20-31); CHLORIDE LEVEL 106.0 MMOL/L (98-107); CREATININE FOR GFR 1.26 MG/DL (0.55-1.30); GLOMERULAR FILTRATION RATE 50.1 (>51); MAGNESIUM LEVEL 1.8 MG/DL (1.8-2.4); PHOSPHORUS LEVEL 3.4 MG/DL (2.5-4.9); POTASSIUM SERUM 3.8 MMOL/L (3.5-5.1); SODIUM LEVEL 139.0 MMOL/L (136-145)
[2025-01-14] MEDS ORDERED: PERCOCET 5MG/325MG TAB PO PRN (14:45)
[2025-01-14] MEDS: PERCOCET 5MG/325MG TAB PO PRN (15:02)
[2025-01-14] MEDS: INSULIN LISPRO (NovoLOG) PER UNIT SC SCH (18:24)
[2025-01-14] MEDS: FAT EMULSION IV 250 ML IV ONE (18:27)
[2025-01-14] MEDS: AMINO AC/ELECTROLYTE/DEX/CALC 1,000 ML IV SCH (18:27)
[2025-01-14 18:56] LABS: MAGNESIUM LEVEL 1.6 MG/DL (1.8-2.4); PHOSPHORUS LEVEL 3.0 MG/DL (2.5-4.9); POTASSIUM SERUM 3.6 MMOL/L (3.5-5.1)
[2025-01-14] MEDS: MAG SULF 1GM/100ML (MAG RUN) 1 GM in IV 1 EA IV SCH (20:47)
[2025-01-14] MEDS: KCL 10MEQ/100ML SWI (KRUN) 10 MEQ in IV 1 EA IV SCH (22:51)
[2025-01-15 04:35] VITALS: BP 109/61; TEMP 98.7; O2SAT 96
[2025-01-15 06:24] LABS: PLATELET COUNT, AUTOMATED 267 10^3/uL (150-450)
[2025-01-15 06:46] LABS: CALCIUM LEVEL 8.7 MG/DL (8.5-10.1); CARBON DIOXIDE LEVEL 22.0 MMOL/L (20-31); CHLORIDE LEVEL 107.0 MMOL/L (98-107); CREATININE FOR GFR 1.26 MG/DL (0.55-1.30); GLOMERULAR FILTRATION RATE 50.1 (>51); MAGNESIUM LEVEL 2.2 MG/DL (1.8-2.4); PHOSPHORUS LEVEL 3.6 MG/DL (2.5-4.9); POTASSIUM SERUM 3.8 MMOL/L (3.5-5.1); SODIUM LEVEL 138.0 MMOL/L (136-145)
[2025-01-15] MEDS: OCTREOTIDE ACETATE 100 MCG/ML VIAL **IV ADMINISTRATION ONLY IV SCH (11:03)
[2025-01-15 11:42] LABS: PLATELET COUNT, AUTOMATED 271 10^3/uL (150-450)
[2025-01-15 12:00] VITALS: BP 112/59; TEMP 97.6; O2SAT 99
[2025-01-15 12:10] LABS: CALCIUM LEVEL 8.8 MG/DL (8.5-10.1); CARBON DIOXIDE LEVEL 22.0 MMOL/L (20-31); CHLORIDE LEVEL 108.0 MMOL/L (98-107); CREATININE FOR GFR 1.28 MG/DL (0.55-1.30); GLOMERULAR FILTRATION RATE 49.2 (>51); POTASSIUM SERUM 4.3 MMOL/L (3.5-5.1); SODIUM LEVEL 140.0 MMOL/L (136-145)
[2025-01-15] MEDS: ASPIRIN 81 MG ENTERIC TABLET PO SCH (13:08)
[2025-01-15 16:00] VITALS: BP 130/57; TEMP 98.9; O2SAT 94
[2025-01-15] MEDS: INSULIN LISPRO (NovoLOG) PER UNIT SC SCH (17:35)
[2025-01-15] MEDS: FAT EMULSION IV 250 ML IV ONE (17:35)
[2025-01-15] MEDS: MULTIVITAMIN -ADULT INJECTION 10 ML, ZINC/COPPER/MANGANESE/SELENIUM 1 ML in AMINO AC/EL... IV SCH (17:36)
[2025-01-15 19:35] LABS: MAGNESIUM LEVEL 2.0 MG/DL (1.8-2.4); PHOSPHORUS LEVEL 4.9 MG/DL (2.5-4.9); POTASSIUM SERUM 4.2 MMOL/L (3.5-5.1)
[2025-01-15 20:04] VITALS: BP 117/65; TEMP 98.6; O2SAT 92
[2025-01-16 00:20] VITALS: BP 114/59; TEMP 98.3; O2SAT 97
[2025-01-16 03:20] VITALS: BP 102/50; TEMP 97; O2SAT 93
[2025-01-16 07:39] VITALS: BP 114/50; TEMP 98.7; O2SAT 97
[2025-01-16 08:41] LABS: MAGNESIUM LEVEL 2.0 MG/DL (1.8-2.4); PHOSPHORUS LEVEL 5.4 MG/DL (2.5-4.9); POTASSIUM SERUM 4.6 MMOL/L (3.5-5.1)
[2025-01-16 12:00] VITALS: BP 105/54; TEMP 98.6; O2SAT 95
[2025-01-16 16:00] VITALS: BP 107/68; TEMP 98.6; O2SAT 95
[2025-01-16] MEDS: FAT EMULSION IV 250 ML IV ONE (17:27)
[2025-01-16] MEDS: AMINO AC/ELECTROLYTE/DEX/CALC 2,000 ML IV SCH (17:27)
[2025-01-16] MEDS: INSULIN LISPRO (NovoLOG) PER UNIT SC SCH (17:34)
[2025-01-16 18:46] LABS: MAGNESIUM LEVEL 1.9 MG/DL (1.8-2.4); PHOSPHORUS LEVEL 5.4 MG/DL (2.5-4.9); POTASSIUM SERUM 4.7 MMOL/L (3.5-5.1)
[2025-01-16 20:41] VITALS: BP 106/59; TEMP 98.8; O2SAT 93
[2025-01-17] VITALS (7 sets, daily range): BP systolic 105–132; BP diastolic 55–68; TEMP 98.1–98.8; O2SAT 91–99
[2025-01-17 07:07] LABS: CALCIUM LEVEL 8.3 MG/DL (8.5-10.1); CARBON DIOXIDE LEVEL 26.0 MMOL/L (20-31); CHLORIDE LEVEL 107.0 MMOL/L (98-107); CREATININE FOR GFR 1.42 MG/DL (0.55-1.30); GLOMERULAR FILTRATION RATE 43.4 (>51); MAGNESIUM LEVEL 2.0 MG/DL (1.8-2.4); PHOSPHORUS LEVEL 5.0 MG/DL (2.5-4.9); POTASSIUM SERUM 5.0 MMOL/L (3.5-5.1); SODIUM LEVEL 140.0 MMOL/L (136-145)
[2025-01-17] MEDS: LR 1,000 ML IV SCH (08:04)
[2025-01-17] MEDS: NS (Normal Saline) 0.9% 1,000 ML IV SCH (11:19)
[2025-01-17] MEDS: INSULIN LISPRO (NovoLOG) PER UNIT SC SCH (18:10)
[2025-01-17] MEDS: FAT EMULSION IV 250 ML IV ONE (18:11)
[2025-01-18 03:44] VITALS: BP 119/62; TEMP 98.5; O2SAT 90
[2025-01-18 07:24] LABS: CALCIUM LEVEL 8.1 MG/DL (8.5-10.1); CARBON DIOXIDE LEVEL 24.0 MMOL/L (20-31); CHLORIDE LEVEL 105.0 MMOL/L (98-107); CREATININE FOR GFR 1.32 MG/DL (0.55-1.30); GLOMERULAR FILTRATION RATE 47.4 (>51); PHOSPHORUS LEVEL 3.4 MG/DL (2.5-4.9); POTASSIUM SERUM 4.4 MMOL/L (3.5-5.1); SODIUM LEVEL 138.0 MMOL/L (136-145)
[2025-01-18 08:10] VITALS: BP 129/60; TEMP 97.9; O2SAT 93
[2025-01-18 12:14] VITALS: BP 105/51; TEMP 98.7; O2SAT 94
[2025-01-18 15:58] VITALS: BP 111/53; TEMP 99.5; O2SAT 94
[2025-01-18] MEDS: FAT EMULSION IV 250 ML IV ONE (18:21)
[2025-01-18] MEDS: INSULIN LISPRO (NovoLOG) PER UNIT SC SCH (18:22)
[2025-01-18 20:32] VITALS: BP 117/55; TEMP 98.4; O2SAT 93
[2025-01-18] MEDS: SODIUM CHLORIDE 0.9% INJ 10 ML SYR IV PRN (20:38)
[2025-01-19] VITALS (9 sets, daily range): BP systolic 102–137; BP diastolic 54–97; TEMP 97.9–98.7; O2SAT 90–95
[2025-01-19 06:34] LABS: BASO # 0.1 10^3/uL (0.0-0.2); BASO % 1.4 % (0.0-1.0); EOS # 0.3 10^3/uL (0.0-0.5); EOS % 7.3 % (0.0-3.0); LYMPH # 1.3 10^3/uL (1.5-5.0); LYMPH % 29.0 % (24.0-44.0); MONO # 0.3 10^3/uL (0.0-0.8); MONO % 7.3 % (2.0-8.0); NEUTROPHILS # 2.4 10^3/uL (1.5-8.5); NEUTROPHILS % 54.8 % (36.0-66.0); PLATELET COUNT, AUTOMATED 245 10^3/uL (150-450)
[2025-01-19 07:02] LABS: INR 0.99
[2025-01-19 07:03] LABS: CALCIUM LEVEL 8.5 MG/DL (8.5-10.1); CARBON DIOXIDE LEVEL 26.0 MMOL/L (20-31); CHLORIDE LEVEL 107.0 MMOL/L (98-107); CREATININE FOR GFR 1.36 MG/DL (0.55-1.30); GLOMERULAR FILTRATION RATE 45.7 (>51); MAGNESIUM LEVEL 1.8 MG/DL (1.8-2.4); PHOSPHORUS LEVEL 3.2 MG/DL (2.5-4.9); POTASSIUM SERUM 4.3 MMOL/L (3.5-5.1); SODIUM LEVEL 143.0 MMOL/L (136-145)
[2025-01-19] MEDS: NS (Normal Saline) 0.9% 1,000 ML IV SCH (08:55)
[2025-01-19] MEDS ORDERED: LIDOCAINE 2% 100 MG/5 ML SDV (FOR ANES.) As Ordered ONE (09:45)
[2025-01-19] MEDS ORDERED: ROCURONIUM BROMIDE 50MG/5ML VIAL As Ordered ONE (09:45)
[2025-01-19] MEDS ORDERED: KETOROLAC 30 MG/ML 1 ML VIAL As Ordered ONE (09:46)
[2025-01-19] MEDS ORDERED: dexAMETHasone 4 MG/ML 1 ML VIAL As Ordered ONE (09:46)
[2025-01-19] MEDS ORDERED: ONDANSETRON 4MG/2ML VIAL As Ordered ONE (09:46)
[2025-01-19] MEDS ORDERED: SUGAMMADEX SODIUM 500 MG/5 ML VIAL As Ordered ONE (09:46)
[2025-01-19] MEDS ORDERED: HYDROmorphone HCL 2 MG/ML 1 ML VIAL As Ordered ONE (09:54)
[2025-01-19] MEDS ORDERED: MIDAZOLAM INJ 2 MG/2 ML VIAL As Ordered ONE (09:55)
[2025-01-19] MEDS ORDERED: PHENYLephrine 500MCG 5ML (100MCG/ML) SYRINGE As Ordered ONE (12:26)
[2025-01-19] MEDS: ZOSYN 3.375GM VIAL As Ordered ONE (12:30)
[2025-01-19] MEDS ORDERED: diphenhydrAMINE 50 MG/ML VIAL IV PRN (15:15)
[2025-01-19] MEDS ORDERED: EPIDURAL/PCA KEYS XX PRN (15:15)
[2025-01-19] MEDS ORDERED: NS (Normal Saline) 0.9% 1,000 ML IV SCH (15:15)
[2025-01-19] MEDS ORDERED: NALOXONE INJ 0.4 MG/1 ML VIAL IV PRN (15:15)
[2025-01-19] MEDS ORDERED: ONDANSETRON 4MG/2ML VIAL IV PRN (15:15)
[2025-01-19] MEDS ORDERED: MORPHINE 2 MG/ML 1 ML VIAL IV PRN (15:20)
[2025-01-19] MEDS: MORPHINE SULF IN 0.9% NACL 100 MG in IV 1 EA IV SCH (15:55)
[2025-01-19] MEDS: HYDROMORPHONE HCL 0.5 MG/0.5 ML SYRINGE IV PRN (16:16)
[2025-01-19] MEDS: FAT EMULSION IV 250 ML IV ONE (18:12)
[2025-01-19] MEDS: AMINO AC/ELECTROLYTE/DEX/CALC 2,000 ML IV SCH (18:12)
[2025-01-19] MEDS: INSULIN LISPRO (NovoLOG) PER UNIT SC SCH (18:39)
[2025-01-20] VITALS (27 sets, daily range): BP systolic 81–122; BP diastolic 44–63; TEMP 97.8–98.8; O2SAT 88–100
[2025-01-20] MEDS: NS (Normal Saline) 0.9% 1,000 ML IV SCH (01:29)
[2025-01-20 06:26] LABS: PLATELET COUNT, AUTOMATED 194 10^3/uL (150-450)
[2025-01-20 07:00] LABS: ALT/SGPT 28.0 U/L (7.0-40); AST/SGOT 48.0 U/L (<34); CALCIUM LEVEL 7.1 MG/DL (8.5-10.1); CARBON DIOXIDE LEVEL 24.0 MMOL/L (20-31); CHLORIDE LEVEL 112.0 MMOL/L (98-107); CREATININE FOR GFR 1.15 MG/DL (0.55-1.30); GLOMERULAR FILTRATION RATE 55.9 (>51); POTASSIUM SERUM 4.9 MMOL/L (3.5-5.1); SODIUM LEVEL 144.0 MMOL/L (136-145)
[2025-01-20 10:30] LABS: PLATELET COUNT, AUTOMATED 169 10^3/uL (150-450)
[2025-01-20] MEDS ORDERED: GLUCOSE 4 GM CHEW PO PRN (13:55)
[2025-01-20] MEDS ORDERED: DEXTROSE 50% 50 ML SYRINGE IV PRN (13:55)
[2025-01-20] MEDS ORDERED: GLUCAGON INJ 1 MG VIAL SC PRN (13:55)
[2025-01-20] MEDS: INSULIN LISPRO (NovoLOG) PER UNIT SC SCH (18:20)
[2025-01-20] MEDS: FAT EMULSION IV 250 ML IV ONE (18:25)
[2025-01-20] MEDS: ENOXAPARIN 30 MG/0.3 ML SYRINGE (J1650 PER 10MG) SC SCH (18:25)
[2025-01-20] MEDS: ALBUTEROL SULFATE 2.5 MG/0.5 ML INH CONCENTRATE NEB SOLN NEB SCH (19:16)
[2025-01-21] VITALS (9 sets, daily range): BP systolic 95–121; BP diastolic 50–58; TEMP 97.6–100.3; O2SAT 90–95
[2025-01-21 06:43] LABS: PLATELET COUNT, AUTOMATED 183 10^3/uL (150-450)
[2025-01-21 07:17] LABS: ALT/SGPT 25.0 U/L (7.0-40); AST/SGOT 41.0 U/L (<34); CALCIUM LEVEL 8.0 MG/DL (8.5-10.1); CARBON DIOXIDE LEVEL 26.0 MMOL/L (20-31); CHLORIDE LEVEL 110.0 MMOL/L (98-107); CREATININE FOR GFR 1.26 MG/DL (0.55-1.30); GLOMERULAR FILTRATION RATE 50.1 (>51); POTASSIUM SERUM 4.0 MMOL/L (3.5-5.1); SODIUM LEVEL 145.0 MMOL/L (136-145)
[2025-01-21] MEDS: ENOXAPARIN 40 MG/0.4 ML SYRINGE (J1650 PER 10MG) SC SCH (09:26)
[2025-01-21] MEDS: ALVIMOPAN 12 MG CAPSULE PO SCH (12:08)
[2025-01-21] MEDS ORDERED: HYDROMORPHONE HCL 0.5 MG/0.5 ML SYRINGE IV PRN (17:00)
[2025-01-21] MEDS ORDERED: ONDANSETRON 4MG ORAL DISINTEGRATING TAB PO PRN (17:05)
[2025-01-21] MEDS: FAT EMULSION IV 250 ML IV ONE (17:51)
[2025-01-21] MEDS: INSULIN LISPRO (NovoLOG) PER UNIT SC SCH (18:00)
[2025-01-21] MEDS: HYDROMORPHONE HCL 0.5 MG/0.5 ML SYRINGE IV PRN (21:40)
[2025-01-22] VITALS (11 sets, daily range): BP systolic 85–148; BP diastolic 50–61; TEMP 98.2–100; O2SAT 63–98
[2025-01-22] MEDS: HYDROmorphone HCL 2 MG/ML 1 ML VIAL IV PRN (01:02)
[2025-01-22 06:48] LABS: PLATELET COUNT, AUTOMATED 177 10^3/uL (150-450)
[2025-01-22 07:21] LABS: ALT/SGPT 23.0 U/L (7.0-40); AST/SGOT 32.0 U/L (<34); CALCIUM LEVEL 7.6 MG/DL (8.5-10.1); CARBON DIOXIDE LEVEL 26.0 MMOL/L (20-31); CHLORIDE LEVEL 109.0 MMOL/L (98-107); CREATININE FOR GFR 1.13 MG/DL (0.55-1.30); GLOMERULAR FILTRATION RATE 57.1 (>51); POTASSIUM SERUM 3.6 MMOL/L (3.5-5.1); SODIUM LEVEL 144.0 MMOL/L (136-145)
[2025-01-22] MEDS: ASPIRIN 81 MG ENTERIC TABLET PO SCH (08:21)
[2025-01-22] MEDS: CLOPIDOGREL 75 MG TAB PO SCH (08:21)
[2025-01-22] MEDS: THIAMINE 100 MG TAB PO SCH (08:21)
[2025-01-22] MEDS: PANTOPRAZOLE 40MG TAB PO SCH (08:22)
[2025-01-22] MEDS ORDERED: HYDROMORPHONE HCL 0.5 MG/0.5 ML SYRINGE IV PRN (09:50)
[2025-01-22] MEDS: FUROSEMIDE 40 MG/4 ML VIAL IV SCH (10:59)
[2025-01-22] MEDS: HYDROMORPHONE HCL 0.5 MG/0.5 ML SYRINGE IV PRN (11:04)
[2025-01-22] MEDS: SILVER NITRATE APPLICATOR (1 = QTY 10) TOP ONE (14:00)
[2025-01-22 16:29] LABS: PLATELET COUNT, AUTOMATED 186 10^3/uL (150-450)
[2025-01-22] MEDS: INSULIN LISPRO (NovoLOG) PER UNIT SC SCH (17:34)
[2025-01-22] MEDS: FAT EMULSION IV 250 ML IV ONE (17:44)
[2025-01-22] MEDS: FUROSEMIDE 40 MG/4 ML VIAL IV ONE (23:41)
[2025-01-23] VITALS (24 sets, daily range): BP systolic 77–113; BP diastolic 43–64; TEMP 97.8–99.9; O2SAT 88–96
[2025-01-23 01:04] LABS: ALT/SGPT 16.0 U/L (7.0-40); AST/SGOT 23.0 U/L (<34); CALCIUM LEVEL 7.3 MG/DL (8.5-10.1); CARBON DIOXIDE LEVEL 27.0 MMOL/L (20-31); CHLORIDE LEVEL 104.0 MMOL/L (98-107); CREATININE FOR GFR 1.1 MG/DL (0.55-1.30); GLOMERULAR FILTRATION RATE 59.0 (>51); MAGNESIUM LEVEL 1.4 MG/DL (1.8-2.4); POTASSIUM SERUM 2.8 MMOL/L (3.5-5.1); SODIUM LEVEL 141.0 MMOL/L (136-145)
[2025-01-23] MEDS: MAG SULF 1GM/100ML (MAG RUN) 2 GM in IV 1 EA IV SCH (01:55)
[2025-01-23] MEDS: KCL 10MEQ/100ML SWI (KRUN) 10 MEQ in IV 1 EA IV ONE ×2 (04:33→05:56)
[2025-01-23 06:24] LABS: PLATELET COUNT, AUTOMATED 215 10^3/uL (150-450)
[2025-01-23 06:50] LABS: ALT/SGPT 15.0 U/L (7.0-40); AST/SGOT 20.0 U/L (<34); CALCIUM LEVEL 7.4 MG/DL (8.5-10.1); CARBON DIOXIDE LEVEL 28.0 MMOL/L (20-31); CHLORIDE LEVEL 102.0 MMOL/L (98-107); CREATININE FOR GFR 1.1 MG/DL (0.55-1.30); GLOMERULAR FILTRATION RATE 59.0 (>51); POTASSIUM SERUM 2.5 MMOL/L (3.5-5.1); SODIUM LEVEL 140.0 MMOL/L (136-145)
[2025-01-23] MEDS: POTASSIUM CHLORIDE 10MEQ SR TABLET PO SCH ×2 (08:42→18:35)
[2025-01-23] MEDS: SILVER NITRATE APPLICATOR (1 = QTY 10) TOP ONE (09:00)
[2025-01-23] MEDS: KETOROLAC 30 MG/ML 1 ML VIAL IV PRN (10:33)
[2025-01-23] MEDS ORDERED: PANTOPRAZOLE 40MG VIAL IV SCH (13:20)
[2025-01-23] MEDS: CALCIUM CARBONATE 500 MG CHEW U/D PO PRN (13:33)
[2025-01-23 15:36] LABS: ALT/SGPT 14.0 U/L (7.0-40); AST/SGOT 20.0 U/L (<34); CALCIUM LEVEL 7.6 MG/DL (8.5-10.1); CARBON DIOXIDE LEVEL 29.0 MMOL/L (20-31); CHLORIDE LEVEL 103.0 MMOL/L (98-107); CREATININE FOR GFR 1.16 MG/DL (0.55-1.30); GLOMERULAR FILTRATION RATE 55.3 (>51); POTASSIUM SERUM 3.1 MMOL/L (3.5-5.1); SODIUM LEVEL 142.0 MMOL/L (136-145)
[2025-01-23 17:18] LABS: PLATELET COUNT, AUTOMATED 202 10^3/uL (150-450)
[2025-01-23] MEDS: INSULIN LISPRO (NovoLOG) PER UNIT SC SCH (18:25)
[2025-01-23] MEDS: FAT EMULSION IV 250 ML IV ONE (18:26)
[2025-01-23] MEDS: PANTOPRAZOLE 40MG VIAL IV SCH (20:26)
[2025-01-23] MEDS: ONDANSETRON 4MG/2ML VIAL IV PRN (20:26)
[2025-01-23] MEDS: NS (Normal Saline) 0.9% 1,000 ML IV ONE (22:54)
[2025-01-23] MEDS: MIDODRINE 2.5 MG TAB PO SCH (23:21)
[2025-01-23 23:32] LABS: CALCIUM LEVEL 7.3 MG/DL (8.5-10.1); CARBON DIOXIDE LEVEL 29.0 MMOL/L (20-31); CHLORIDE LEVEL 106.0 MMOL/L (98-107); CREATININE FOR GFR 1.19 MG/DL (0.55-1.30); GLOMERULAR FILTRATION RATE 53.7 (>51); MAGNESIUM LEVEL 1.9 MG/DL (1.8-2.4); POTASSIUM SERUM 3.5 MMOL/L (3.5-5.1); SODIUM LEVEL 144.0 MMOL/L (136-145)
[2025-01-24] VITALS (120 sets, daily range): BP systolic 68–153; BP diastolic 34–68; TEMP 97.5–99.9; O2SAT 86–100
[2025-01-24] MEDS: NS 500 ML IV ONE (00:09)
[2025-01-24] MEDS: MIDODRINE 2.5 MG TAB PO ONE (00:47)
[2025-01-24] MEDS ORDERED: NOREPINEPHRINE 4 MG IN D5W 250 ML IVBAG (16 MCG/ML) As Ordered ONE (01:04)
[2025-01-24] MEDS ORDERED: NOREPINEPHRINE BITARTRATE 16 MG in D5W 484 ML IV SCH (01:05)
[2025-01-24] MEDS: NOREPINEPHRINE 4MG IN D5 250ML 4 MG in IV 1 EA IV SCH (01:15)
[2025-01-24 04:55] LABS: PLATELET COUNT, AUTOMATED 250 10^3/uL (150-450)
[2025-01-24 05:22] LABS: ALT/SGPT 15.0 U/L (7.0-40); AST/SGOT 22.0 U/L (<34); CALCIUM LEVEL 7.6 MG/DL (8.5-10.1); CARBON DIOXIDE LEVEL 27.0 MMOL/L (20-31); CHLORIDE LEVEL 110.0 MMOL/L (98-107); CREATININE FOR GFR 1.11 MG/DL (0.55-1.30); GLOMERULAR FILTRATION RATE 58.3 (>51); POTASSIUM SERUM 3.8 MMOL/L (3.5-5.1); SODIUM LEVEL 146.0 MMOL/L (136-145)
[2025-01-24 07:59] LABS: MAGNESIUM LEVEL 1.8 MG/DL (1.8-2.4)
[2025-01-24] MEDS ORDERED: MIDODRINE 5 MG TAB PO SCH (08:00)
[2025-01-24] MEDS: ALBUTEROL SULFATE 2.5 MG/0.5 ML INH CONCENTRATE NEB SOLN NEB PRN (08:28)
[2025-01-24] MEDS: MIDODRINE 5 MG TAB PO SCH (09:06)
[2025-01-24] MEDS: traMADol 50 MG TAB PO PRN (09:08)
[2025-01-24] MEDS: LR 500 ML in IV 1 EA IV ONE ×2 (09:51→17:32)
[2025-01-24] MEDS: HEPARIN SOD 5000 UNITS/ML 1 ML VIAL/SYRINGE SQ SCH (11:46)
[2025-01-24] MEDS: INSULIN LISPRO (NovoLOG) PER UNIT SC SCH (18:00)
[2025-01-24] MEDS: FAT EMULSION IV 250 ML IV ONE (18:37)
[2025-01-24] MEDS: HYDROMORPHONE HCL 0.5 MG/0.5 ML SYRINGE IV PRN (18:44)
[2025-01-25] VITALS (39 sets, daily range): BP systolic 78–166; BP diastolic 38–72; TEMP 98–99.5; O2SAT 91–99
[2025-01-25 05:38] LABS: PLATELET COUNT, AUTOMATED 267 10^3/uL (150-450)
[2025-01-25 06:12] LABS: ALT/SGPT 27.0 U/L (7.0-40); AST/SGOT 34.0 U/L (<34); CALCIUM LEVEL 7.8 MG/DL (8.5-10.1); CARBON DIOXIDE LEVEL 29.0 MMOL/L (20-31); CHLORIDE LEVEL 108.0 MMOL/L (98-107); CREATININE FOR GFR 1.04 MG/DL (0.55-1.30); GLOMERULAR FILTRATION RATE 63.1 (>51); MAGNESIUM LEVEL 1.7 MG/DL (1.8-2.4); POTASSIUM SERUM 3.8 MMOL/L (3.5-5.1); SODIUM LEVEL 146.0 MMOL/L (136-145)
[2025-01-25] MEDS: HYDROMORPHONE HCL 0.5 MG/0.5 ML SYRINGE IV PRN (12:24)
[2025-01-25] MEDS: FAT EMULSION IV 250 ML IV ONE (17:47)
[2025-01-25] MEDS: INSULIN LISPRO (NovoLOG) PER UNIT SC SCH (17:53)
[2025-01-25] MEDS ORDERED: HYDROmorphone 2 MG TAB PO ONE (20:50)
[2025-01-25] MEDS ORDERED: PILL CUTTER 1 EACH XX PRN (21:05)
[2025-01-25] MEDS: HYDROmorphone 2 MG TAB PO ONE (21:15)
[2025-01-26] VITALS (31 sets, daily range): BP systolic 84–114; BP diastolic 43–68; TEMP 97.8–98.7; O2SAT 91–97
[2025-01-26 04:50] LABS: PLATELET COUNT, AUTOMATED 285 10^3/uL (150-450)
[2025-01-26 05:06] LABS: ALT/SGPT 24.0 U/L (7.0-40); AST/SGOT 24.0 U/L (<34); CALCIUM LEVEL 8.2 MG/DL (8.5-10.1); CARBON DIOXIDE LEVEL 27.0 MMOL/L (20-31); CHLORIDE LEVEL 105.0 MMOL/L (98-107); CREATININE FOR GFR 1.17 MG/DL (0.55-1.30); GLOMERULAR FILTRATION RATE 54.8 (>51); MAGNESIUM LEVEL 1.7 MG/DL (1.8-2.4); POTASSIUM SERUM 3.4 MMOL/L (3.5-5.1); SODIUM LEVEL 143.0 MMOL/L (136-145)
[2025-01-26] MEDS: MAG SULF 1GM/100ML (MAG RUN) 1 GM in IV 1 EA IV ONE (06:14)
[2025-01-26] MEDS: KCL 10MEQ/100ML SWI (KRUN) 10 MEQ in IV 1 EA IV ONE (07:36)
[2025-01-26] MEDS: NS 500 ML IV ONE (08:34)
[2025-01-26] MEDS: METAMUCIL PACKET PO SCH (09:59)
[2025-01-26] MEDS: PERCOCET 5MG/325MG TAB PO PRN (12:45)
[2025-01-26] MEDS: FAT EMULSION IV 250 ML IV ONE (18:24)
[2025-01-27] VITALS (11 sets, daily range): BP systolic 90–116; BP diastolic 51–72; TEMP 97.9–98.6; O2SAT 90–95
[2025-01-27] MEDS: ALBUTEROL SULFATE 2.5 MG/0.5 ML INH CONCENTRATE NEB SOLN NEB ONE (01:19)
[2025-01-27 05:12] LABS: PLATELET COUNT, AUTOMATED 314 10^3/uL (150-450)
[2025-01-27 05:41] LABS: ALT/SGPT 24.0 U/L (7.0-40); AST/SGOT 23.0 U/L (<34); CALCIUM LEVEL 8.7 MG/DL (8.5-10.1); CARBON DIOXIDE LEVEL 26.0 MMOL/L (20-31); CHLORIDE LEVEL 104.0 MMOL/L (98-107); CREATININE FOR GFR 1.23 MG/DL (0.55-1.30); GLOMERULAR FILTRATION RATE 51.6 (>51); MAGNESIUM LEVEL 2.0 MG/DL (1.8-2.4); POTASSIUM SERUM 3.4 MMOL/L (3.5-5.1); SODIUM LEVEL 142.0 MMOL/L (136-145)
[2025-01-27] MEDS ORDERED: ALBUTEROL SULFATE 2.5 MG/0.5 ML INH CONCENTRATE NEB SOLN NEB PRN (07:55)
[2025-01-27] MEDS: ASPIRIN 81 MG ENTERIC TABLET PO SCH (08:12)
[2025-01-27] MEDS: POTASSIUM CHLORIDE 10MEQ SR TABLET PO ONE (08:12)
[2025-01-27] MEDS: FAT EMULSION IV 250 ML IV ONE (17:46)
[2025-01-27] MEDS: METAMUCIL PACKET PO SCH (20:42)
[2025-01-28] VITALS (7 sets, daily range): BP systolic 97–131; BP diastolic 46–64; TEMP 96.9–98.8; O2SAT 92–99
[2025-01-28 04:57] LABS: PLATELET COUNT, AUTOMATED 372 10^3/uL (150-450)
[2025-01-28 05:27] LABS: ALT/SGPT 22.0 U/L (7.0-40); AST/SGOT 19.0 U/L (<34); CALCIUM LEVEL 8.9 MG/DL (8.5-10.1); CARBON DIOXIDE LEVEL 23.0 MMOL/L (20-31); CHLORIDE LEVEL 106.0 MMOL/L (98-107); CREATININE FOR GFR 1.16 MG/DL (0.55-1.30); GLOMERULAR FILTRATION RATE 55.3 (>51); MAGNESIUM LEVEL 2.0 MG/DL (1.8-2.4); POTASSIUM SERUM 4.4 MMOL/L (3.5-5.1); SODIUM LEVEL 140.0 MMOL/L (136-145)
[2025-01-28] MEDS: FAT EMULSION IV 250 ML IV ONE (17:33)
[2025-01-29] VITALS (8 sets, daily range): BP systolic 99–122; BP diastolic 52–57; TEMP 97–99.9; O2SAT 90–99
[2025-01-29 05:26] LABS: PLATELET COUNT, AUTOMATED 482 10^3/uL (150-450)
[2025-01-29 05:47] LABS: ALT/SGPT 21.0 U/L (7.0-40); AST/SGOT 17.0 U/L (<34); CALCIUM LEVEL 8.8 MG/DL (8.5-10.1); CARBON DIOXIDE LEVEL 22.0 MMOL/L (20-31); CHLORIDE LEVEL 107.0 MMOL/L (98-107); CREATININE FOR GFR 1.2 MG/DL (0.55-1.30); GLOMERULAR FILTRATION RATE 53.1 (>51); MAGNESIUM LEVEL 2.0 MG/DL (1.8-2.4); POTASSIUM SERUM 4.1 MMOL/L (3.5-5.1); SODIUM LEVEL 141.0 MMOL/L (136-145)
[2025-01-29] MEDS: FAT EMULSION IV 250 ML IV ONE (18:25)
[2025-01-30 03:09] VITALS: BP 102/56; TEMP 98.4; O2SAT 92
[2025-01-30 07:17] LABS: PLATELET COUNT, AUTOMATED 509 10^3/uL (150-450)
[2025-01-30 07:46] LABS: ALT/SGPT 19.0 U/L (7.0-40); AST/SGOT 24.0 U/L (<34); CALCIUM LEVEL 9.0 MG/DL (8.5-10.1); CARBON DIOXIDE LEVEL 22.0 MMOL/L (20-31); CHLORIDE LEVEL 107.0 MMOL/L (98-107); CREATININE FOR GFR 1.22 MG/DL (0.55-1.30); GLOMERULAR FILTRATION RATE 52.1 (>51); POTASSIUM SERUM 4.5 MMOL/L (3.5-5.1); SODIUM LEVEL 141.0 MMOL/L (136-145)
[2025-01-30 08:00] VITALS: BP 121/81; TEMP 97.3; O2SAT 95
[2025-01-30 12:00] VITALS: BP 106/51; TEMP 97.9; O2SAT 91
[2025-01-30 16:06] VITALS: BP 118/55; TEMP 97.7; O2SAT 94
[2025-01-30] MEDS: FAT EMULSION IV 250 ML IV ONE (17:30)
[2025-01-30] MEDS: INSULIN LISPRO (NovoLOG) PER UNIT SC SCH (17:47)
[2025-01-30 20:27] VITALS: BP 118/76; TEMP 98.8; O2SAT 95
[2025-01-31 00:10] VITALS: BP 116/56; TEMP 98; O2SAT 95
[2025-01-31 03:30] VITALS: BP 104/54; TEMP 98; O2SAT 93
[2025-01-31 06:20] LABS: PLATELET COUNT, AUTOMATED 503 10^3/uL (150-450)
[2025-01-31 06:49] LABS: ALT/SGPT 18.0 U/L (7.0-40); AST/SGOT 21.0 U/L (<34); CALCIUM LEVEL 8.9 MG/DL (8.5-10.1); CARBON DIOXIDE LEVEL 20.0 MMOL/L (20-31); CHLORIDE LEVEL 108.0 MMOL/L (98-107); CREATININE FOR GFR 1.27 MG/DL (0.55-1.30); GLOMERULAR FILTRATION RATE 49.6 (>51); POTASSIUM SERUM 4.1 MMOL/L (3.5-5.1); SODIUM LEVEL 138.0 MMOL/L (136-145)
[2025-01-31 08:00] VITALS: BP 116/57; TEMP 98.3; O2SAT 93
[2025-01-31 12:00] VITALS: BP 123/58; TEMP 98.7; O2SAT 93
[2025-01-31 16:00] VITALS: BP 115/57; TEMP 98.9; O2SAT 94
[2025-01-31] MEDS: INSULIN LISPRO (NovoLOG) PER UNIT SC SCH (18:00)
[2025-01-31] MEDS: FAT EMULSION IV 250 ML IV ONE (18:07)
[2025-01-31 20:31] VITALS: BP 107/62; TEMP 98.7; O2SAT 94
[2025-02-01] VITALS (7 sets, daily range): BP systolic 104–144; BP diastolic 49–64; TEMP 98.1–99.9; O2SAT 91–94
[2025-02-01] MEDS: FAT EMULSION IV 250 ML IV ONE (17:48)
[2025-02-01] MEDS: INSULIN LISPRO (NovoLOG) PER UNIT SC SCH (18:02)
[2025-02-02] VITALS (11 sets, daily range): BP systolic 97–136; BP diastolic 49–71; TEMP 97.8–98.9; O2SAT 92–98
[2025-02-02 06:46] LABS: PLATELET COUNT, AUTOMATED 465 10^3/uL (150-450)
[2025-02-02 07:02] LABS: CALCIUM LEVEL 9.0 MG/DL (8.5-10.1); CARBON DIOXIDE LEVEL 20.0 MMOL/L (20-31); CHLORIDE LEVEL 108.0 MMOL/L (98-107); CREATININE FOR GFR 1.32 MG/DL (0.55-1.30); GLOMERULAR FILTRATION RATE 47.4 (>51); POTASSIUM SERUM 4.3 MMOL/L (3.5-5.1); SODIUM LEVEL 138.0 MMOL/L (136-145)
[2025-02-02] MEDS: CLOPIDOGREL 75 MG TAB PO SCH (11:24)
[2025-02-02] MEDS ORDERED: FAT EMULSION IV 250 ML IV ONE (18:00)
[2025-02-02] MEDS ORDERED: INSULIN LISPRO (NovoLOG) PER UNIT SC SCH (18:00)
[2025-02-03 00:39] VITALS: BP 95/53
[2025-02-03 03:24] VITALS: BP 103/51; TEMP 98.5; O2SAT 95
[2025-02-03 06:03] LABS: PLATELET COUNT, AUTOMATED 468 10^3/uL (150-450)
[2025-02-03 06:24] LABS: ALT/SGPT 23.0 U/L (7.0-40); AST/SGOT 31.0 U/L (<34); CALCIUM LEVEL 9.0 MG/DL (8.5-10.1); CARBON DIOXIDE LEVEL 20.0 MMOL/L (20-31); CHLORIDE LEVEL 111.0 MMOL/L (98-107); CREATININE FOR GFR 1.31 MG/DL (0.55-1.30); GLOMERULAR FILTRATION RATE 47.8 (>51); MAGNESIUM LEVEL 1.9 MG/DL (1.8-2.4); POTASSIUM SERUM 4.1 MMOL/L (3.5-5.1); SODIUM LEVEL 141.0 MMOL/L (136-145)
[2025-02-03 08:03] VITALS: BP 104/55; TEMP 98.8; O2SAT 94
[2025-02-03 12:00] VITALS: BP 112/56; TEMP 99.1; O2SAT 92
[2025-02-03] MEDS: PERCOCET 5MG/325MG TAB PO PRN (12:34)
[2025-02-03 16:00] VITALS: BP 120/55; TEMP 97.7; O2SAT 93
[2025-02-03 20:00] VITALS: BP 118/55; TEMP 98.4; O2SAT 93
[2025-02-04] VITALS: BP 110/53; TEMP 97.5; O2SAT 95
[2025-02-04 04:00] VITALS: BP 107/58; TEMP 98.3; O2SAT 93
[2025-02-04 06:01] LABS: PLATELET COUNT, AUTOMATED 460 10^3/uL (150-450)
[2025-02-04 06:27] LABS: ALT/SGPT 25.0 U/L (7.0-40); AST/SGOT 26.0 U/L (<34); CALCIUM LEVEL 9.0 MG/DL (8.5-10.1); CARBON DIOXIDE LEVEL 21.0 MMOL/L (20-31); CHLORIDE LEVEL 108.0 MMOL/L (98-107); CREATININE FOR GFR 1.31 MG/DL (0.55-1.30); GLOMERULAR FILTRATION RATE 47.8 (>51); MAGNESIUM LEVEL 1.8 MG/DL (1.8-2.4); POTASSIUM SERUM 4.1 MMOL/L (3.5-5.1); SODIUM LEVEL 138.0 MMOL/L (136-145)
[2025-02-04 07:56] VITALS: BP 111/57; TEMP 98.8; O2SAT 90
[2025-02-04 12:00] VITALS: BP 124/58; TEMP 98.5; O2SAT 92
[2025-02-04 15:58] VITALS: BP 130/59; TEMP 98.4; O2SAT 95
[2025-02-04 20:34] VITALS: BP 110/56; TEMP 98.3; O2SAT 92
[2025-02-05] VITALS: BP 107/51; TEMP 98.9; O2SAT 95
[2025-02-05 04:00] VITALS: BP 113/53; TEMP 99.1; O2SAT 91
[2025-02-05 06:32] LABS: PLATELET COUNT, AUTOMATED 438 10^3/uL (150-450)
[2025-02-05 06:52] LABS: ALT/SGPT 21.0 U/L (7.0-40); AST/SGOT 21.0 U/L (<34); CALCIUM LEVEL 8.9 MG/DL (8.5-10.1); CARBON DIOXIDE LEVEL 22.0 MMOL/L (20-31); CHLORIDE LEVEL 107.0 MMOL/L (98-107); CREATININE FOR GFR 1.22 MG/DL (0.55-1.30); GLOMERULAR FILTRATION RATE 52.1 (>51); MAGNESIUM LEVEL 1.7 MG/DL (1.8-2.4); POTASSIUM SERUM 4.1 MMOL/L (3.5-5.1); SODIUM LEVEL 139.0 MMOL/L (136-145)
[2025-02-05 08:17] VITALS: BP 125/58; TEMP 99; O2SAT 90
[2025-02-05 11:50] VITALS: BP 118/57; TEMP 99; O2SAT 93
[2025-02-05 17:00] VITALS: BP 121/55; TEMP 99; O2SAT 90
[2025-02-05 20:41] VITALS: BP 109/63; TEMP 98.2; O2SAT 90
[2025-02-06 00:48] VITALS: BP 101/49; TEMP 98.5; O2SAT 91
[2025-02-06 03:36] VITALS: BP 106/51; TEMP 98.4; O2SAT 90
[2025-02-06 06:27] LABS: PLATELET COUNT, AUTOMATED 393 10^3/uL (150-450)
[2025-02-06 06:58] LABS: ALT/SGPT 24.0 U/L (7.0-40); AST/SGOT 27.0 U/L (<34); CALCIUM LEVEL 9.0 MG/DL (8.5-10.1); CARBON DIOXIDE LEVEL 21.0 MMOL/L (20-31); CHLORIDE LEVEL 107.0 MMOL/L (98-107); CREATININE FOR GFR 1.24 MG/DL (0.55-1.30); GLOMERULAR FILTRATION RATE 51.1 (>51); MAGNESIUM LEVEL 1.8 MG/DL (1.8-2.4); POTASSIUM SERUM 4.3 MMOL/L (3.5-5.1); SODIUM LEVEL 139.0 MMOL/L (136-145)
[2025-02-06 08:01] VITALS: BP 108/57; TEMP 98; O2SAT 99
[2025-02-06 11:48] VITALS: BP 102/59; TEMP 98.1; O2SAT 100
[2025-02-06 16:07] VITALS: BP 105/56; TEMP 98.2; O2SAT 99
[2025-02-06 20:17] VITALS: BP 103/55; TEMP 97.8; O2SAT 92
[2025-02-07 00:28] VITALS: BP 97/51; TEMP 98.6; O2SAT 91
[2025-02-07 03:48] VITALS: BP 107/54; TEMP 98.8; O2SAT 93
[2025-02-07 06:21] LABS: PLATELET COUNT, AUTOMATED 375 10^3/uL (150-450)
[2025-02-07 06:46] LABS: ALT/SGPT 25.0 U/L (7.0-40); AST/SGOT 27.0 U/L (<34); CALCIUM LEVEL 8.9 MG/DL (8.5-10.1); CARBON DIOXIDE LEVEL 21.0 MMOL/L (20-31); CHLORIDE LEVEL 106.0 MMOL/L (98-107); CREATININE FOR GFR 1.28 MG/DL (0.55-1.30); GLOMERULAR FILTRATION RATE 49.2 (>51); MAGNESIUM LEVEL 1.9 MG/DL (1.8-2.4); POTASSIUM SERUM 4.3 MMOL/L (3.5-5.1); SODIUM LEVEL 137.0 MMOL/L (136-145)
[2025-02-07 08:03] VITALS: BP 97/55; TEMP 98.5; O2SAT 93
[2025-02-07 11:58] VITALS: BP 110/53; TEMP 98.5; O2SAT 96
[2025-02-07 16:14] VITALS: BP 126/59; TEMP 98.9; O2SAT 90
[2025-02-07 19:38] VITALS: BP 107/55; O2SAT 92
[2025-02-08 00:09] VITALS: BP 106/58; TEMP 98.5; O2SAT 93
[2025-02-08 03:21] VITALS: BP 101/48; TEMP 99.1; O2SAT 92
[2025-02-08 06:58] LABS: PLATELET COUNT, AUTOMATED 351 10^3/uL (150-450)
[2025-02-08 07:32] LABS: ALT/SGPT 25.0 U/L (7.0-40); AST/SGOT 27.0 U/L (<34); CALCIUM LEVEL 9.4 MG/DL (8.5-10.1); CARBON DIOXIDE LEVEL 22.0 MMOL/L (20-31); CHLORIDE LEVEL 107.0 MMOL/L (98-107); CREATININE FOR GFR 1.22 MG/DL (0.55-1.30); GLOMERULAR FILTRATION RATE 52.1 (>51); MAGNESIUM LEVEL 1.9 MG/DL (1.8-2.4); POTASSIUM SERUM 4.4 MMOL/L (3.5-5.1); SODIUM LEVEL 139.0 MMOL/L (136-145)
[2025-02-08 08:00] VITALS: BP 100/55; TEMP 98.7; O2SAT 94
[2025-02-08] MEDS ORDERED: OXYC-517 PO (10:45)
[2025-02-08] MEDS ORDERED: MIDO10TA3 PO (10:45)
[2025-02-08] MEDS ORDERED: BLOOKIT XX (10:47)
[2025-02-08] MEDS: FLUZONE VACCINE TRI PF(25-26) 0.5ML SYRINGE IM.IMMUN ONE (10:56)
[2025-02-08 12:17] VITALS: BP 102/50
== END 2025-02-08 13:43 | disposition home health service (06) | DRG 221 ==
LOC: M ED 17:37 → M ED INP 01-12 00:58 → M MSPAV 01-12 16:33 → M ICU 01-23 23:40 → M MSPAV 01-29 11:02
PROVIDERS: ADMIT Internal Medicine; ATTEND Internal Medicine Nephrology
PROC: 30233N1 Transfusion of Nonautologous Red Blood Cells into Peripheral Vein, Percutaneous Approach (ICD-10-PCS; 2025-01-20)
PROC: 30233J1 Transfusion of Nonautologous Serum Albumin into Peripheral Vein, Percutaneous Approach (ICD-10-PCS; 2025-01-24)
PROC: B246ZZZ Ultrasonography of Right and Left Heart (ICD-10-PCS; 2025-01-25)
PROC: 0DB80ZZ Excision of Small Intestine, Open Approach (ICD-10-PCS; principal; 2025-02-04)
PROC: 0WUF0JZ Supplement Abdominal Wall with Synthetic Substitute, Open Approach (ICD-10-PCS; 2025-02-04)
DX: K63.2 Fistula of intestine (principal); R57.1 Hypovolemic shock; I50.33 Acute on chronic diastolic (congestive) heart failure; J90 Pleural effusion, not elsewhere classified; I31.39 Other pericardial effusion (noninflammatory); I95.9 Hypotension, unspecified; E46 Unspecified protein-calorie malnutrition; E87.1 Hypo-osmolality and hyponatremia; R57.8 Other shock; N18.30 Chronic kidney disease, stage 3 unspecified; G62.9 Polyneuropathy, unspecified; T85.79XA Infection and inflammatory reaction due to other internal prosthetic devices, implants and grafts, initial encounter; L03.311 Cellulitis of abdominal wall; L02.211 Cutaneous abscess of abdominal wall; E87.70 Fluid overload, unspecified; E88.09 Other disorders of plasma-protein metabolism, not elsewhere classified; L76.32 Postprocedural hematoma of skin and subcutaneous tissue following other procedure; F10.10 Alcohol abuse, uncomplicated; I73.9 Peripheral vascular disease, unspecified; J44.9 Chronic obstructive pulmonary disease, unspecified; Z90.49 Acquired absence of other specified parts of digestive tract; Z93.2 Ileostomy status; Z79.82 Long term (current) use of aspirin; Z79.899 Other long term (current) drug therapy; Z91.030 Bee allergy status; Z95.828 Presence of other vascular implants and grafts; E87.6 Hypokalemia; K43.9 Ventral hernia without obstruction or gangrene; E16.2 Hypoglycemia, unspecified; D62 Acute posthemorrhagic anemia; G89.18 Other acute postprocedural pain; G89.29 Other chronic pain; J98.11 Atelectasis; K43.5 Parastomal hernia without obstruction or gangrene; K66.0 Peritoneal adhesions (postprocedural) (postinfection); Z79.02 Long term (current) use of antithrombotics/antiplatelets; Z79.891 Long term (current) use of opiate analgesic